=== PATIENT | male | born 1945 | race Caucasian/White ===

== ENCOUNTER 2020-05-26 13:05 | Inpatient (IN) ==
--- OUTSIDE RECORDS SUMMARY | 2020-05-26 13:07 | External Medical Summary | Continuity of Care Document ---
:1945 Author Name Annie Cool, Provider Address Unavailable Unavailable , Care Team Providers Name Role Phone Unavailable Unavailable Unavailable CHAPINCITO HALE Unavailable Unavailable Unavailable Unavailable Unavailable Problems Malignant neoplasm of prostate (185) (C61) Allergies and Adverse Reactions Sulfa Drugs (Allergy) Reaction: Hives Medications No Reported Medications , M.D. Refills: 0 Procedures History of Chemotherapeutics Status: Com pleted History of Colon Surgery Status: Complet ed History of Nose Surgery Status: Complete d History of Tonsillectomy Status: Complet ed Immunizations Immunizations not documented Family History Unknown Family Member Family history of Hypertension (V17.49) Status: Active Comments: Family History Social History - Smoking Status Ex-smoker Plan of Treatment Planned Observations Planned Goals not documented Results No Known Results Results not documented
--- NOTE | 2020-05-26 13:30 | Emergency Department Note ---
History of Present Illness General Chief complaint: Stroke/CVA Symptoms Stated complaint: stroke symptoms Time Seen by Provider: 05/26/20 13:07 Source: patient Mode of arrival: ambulatory Limitations: no limitations History of Present Illness This patient was brought in by EMS after having an episode where he got dizzy and had a aphasia and trouble walking. This happened around noon. He had just taken some heavy trash to the curb and on the way back he said he felt dizzy. His called 911 and when the paramedics arrived they said he was asymptomatic and did not even want to come to the hospital. He has been well lately and had no recent illness. No exposure to COVID. No fever or chills or flulike symptoms. No cough or shortness of breath or chest pain no abdominal pain. At present he is asymptomatic and denies any headache, neck pain, numbness or weakness, difficulty speaking or swallowing, change in vision, any new problems or concerns. Home Medications Home Medications Medication Instructions Recorded Confirmed Type amlodipine 10 mg PO QDL 05/26/20 05/26/20 History carvedilol 3.125 mg PO BID 05/26/20 05/26/20 History fluoxetine 20 mg PO QDL 05/26/20 05/26/20 History gabapentin 600 mg PO BID 05/26/20 05/26/20 History gabapentin 800 mg PO BID 05/26/20 05/26/20 History lisinopril 40 mg PO QDL 05/26/20 05/26/20 History trazodone 150 mg PO HS 05/26/20 05/26/20 History Allergies Allergy/AdvReac Type Severity Reaction Status Date / Time Sulfa (Sulfonamide Allergy Intermediate HIVES Verified 05/26/20 15:10 Antibiotics) Past Med/Surg History Social History Preferred Language: Vincentian Feels Safe at Home: Yes Smoking Status: Current every day smoker Immunizations: Past medical history: He does have a history of Crohn's disease. He denies history of CVA or cardiac disease or diabetes Social history: He is followed by Dr. Kaur. He does smoke. He does not drink. He is . Review of Systems A total of 10 systems reviewed and were otherwise negative Physical Exam Vital Signs Vital Signs - 24 hr 05/26/20 13:05 05/26/20 14:03 Temperature 37.1 C Temperature Source Oral Pulse Rate 90 Pulse Rate [Right Finger] 82 Pulse Rhythm Regular Respiratory Rate 20 22 Respiratory Effort / Characteristics Non-Labored Spontaneous Non-Labored Respiratory Depth Normal Normal Respiratory Pattern Regular Blood Pressure 200/117 H Blood Pressure [Right Arm] 199/108 H Blood Pressure Mean 144 Blood Pressure Mean [Right Arm] 138 Pulse Oximetry 96 94 Oxygen Delivery Method Room Air Room Air Sepsis Recent Fever Within 48 Hours No Sepsis New/Unexplained Change in Mental Status No Sepsis Action Taken by Nursing No Action Required General: Well developed well nourished older male who appears in no acute distress in no acute distress, breathing comfortably on room air. Normal speech, nonslurred. No aphasia. HEENT: Normal cephalic atraumatic. Pupils are equal round and reactive to light. Extraocular movements are intact. Oropharynx is pink with moist mucous membranes. No swelling of the mouth lips or tongue. Neck: Supple with a midline trachea. No meningeal signs or stiffness, no JVD or bruits. No Stridor. Chest: Clear to auscultation bilaterally. No wheezes or rhonchi. No increased work of breathing. Heart: Regular rate and rhythm without murmurs or gallops. Abdomen: Soft nontender, nondistended without rebound guarding or rigidity. Extremities: No cyanosis clubbing or edema. No calf tenderness or assymetry Spine/Back. Non tender to palpation. No CVA tenderness Skin: Good turgor without rashes. Neurologic exam: Cranial nerves two through 12 are intact. Motor and sensation are intact and symmetrical throughout. He does have a tremor in his chin and also when he moves his arms. He thinks this is chronic. Course Administered Medications Discontinued Medications Aspirin (Aspirin Chew) 324 mg PO NOW STA Stop: 05/26/20 14:43 Last Admin: 05/26/20 14:53 Dose: 324 mg Documented by: [id number] Magnesium Sulfate/Dextrose (Magnesium Sulfate / D5w) 1 gm in 100 mls @ 100 mls/hr IV NOW STA Stop: 05/26/20 15:13 Last Admin: 05/26/20 14:34 Dose: 100 mls/hr Documented by: [id number] Potassium Chloride (Klor-Con M20) 40 meq PO NOW STA Stop: 05/26/20 14:14 Last Admin: 05/26/20 14:34 Dose: 40 meq Documented by: [id number] Medical Decision Making Differential Diagnosis CVA, TIA, electrolyte or metabolic abnormality, toxicologic, trauma, cardiac, infectious Medical Records Attestation: I reviewed the patient's medical records. Home Medications Current Medication List: was personally reviewed by me Laboratory Data Attestation: I reviewed the patient's lab results. Result diagrams: 05/26/20 12:37 05/26/20 12:37 Lab Results 05/26/20 05/26/20 05/26/20 Range/Units 12:37 12:37 12:37 WBC 8.35 (4.8-10.8) K/uL RBC 4.53 L (4.7-6.1) M/uL Hgb 14.2 (14.0-18.0) g/dL Hct 40.9 L (42-52) % MCV 90.3 (80-100) fL MCH 31.3 (25-34) pg MCHC 34.7 (32-36) g/dL RDW Std Deviation 46.7 H (36.4-46.3) fL RDW Coeff of Ruiz 14.2 (11.5-14.5) % Plt Count 180 (130-400) K/uL MPV 10.7 H (7.4-10.4) fL Immature Gran % (Auto) 0.1 % Neut % (Auto) 81.8 % Lymph % (Auto) 5.9 % [place] % (Auto) 11.3 % Eos % (Auto) 0.5 % Baso % (Auto) 0.4 % Neut # (Auto) 6.84 H (1.4-6.5) K/uL Lymph # (Auto) 0.49 L (1.2-3.4) K/uL [place] # (Auto) 0.94 H (0.11-0.59) K/uL Eos # (Auto) 0.04 (0-0.5) K/uL Baso # (Auto) 0.03 (0-0.2) K/uL Immature Gran # (Auto) 0.01 (0.00-0.02) K/uL PT 11.5 (9.0-12.0) Seconds INR 1.1 (0.9-1.1) APTT 27.8 (21.0-31.0) Seconds PTT Ratio 1.0 Sodium 138 (136-145) mmol/L Potassium 3.1 L (3.5-5.1) mmol/L Chloride 101 (98-107) mmol/L Carbon Dioxide 28 (21-32) mmol/L Anion Gap 8.0 (3-11) BUN 10 (7-18) mg/dl Creatinine 1.33 (0.6-1.4) mg/dl Est Cr Clr Drug Dosing 46.7 ml/min Est GFR ( Amer) 59.8 Est GFR (Non-Af Amer) 51.6 BUN/Creatinine Ratio 7.7 L (10-20) Glucose 89 (70-99) mg/dl Calcium 10.0 (8.5-10.1) mg/dl Magnesium 1.7 L (1.8-2.4) mg/dl Total Bilirubin 1.2 H (0.2-1) mg/dl AST 14 L (15-37) U/L ALT 14 (12-78) U/L Alkaline Phosphatase 104 (45-117) U/L Troponin I < 0.015 (0-0.045) ng/ml Total Protein 8.5 H (6.4-8.2) gm/dl Albumin 3.8 (3.4-5.0) gm/dl Globulin 4.7 H (2.5-4.0) gm/dl Albumin/Globulin Ratio 0.8 L (0.9-2) Imaging Data Radiologist's Impression: HEAD CT NONCONTRAST CT DOSE: 537.48 mGy.cm HISTORY: Stroke evaluation TECHNIQUE: Multiaxial CT images of the head were performed without the use of intravenous contrast. Automated exposure control was utilized for this study. A dose lowering technique was utilized adhering to the principles of ALARA. Comparison: None. Findings: The paranasal sinuses and mastoid air cells are clear. The calvarium and skull base are intact. There is no mass, hematoma, midline shift, acute infarct. White matter hypodensity is nonspecific but suggestive of microvascular ischemic change. The ventricles and sulci demonstrate mild age-related involutional changes. Old lacunar infarcts seen within the left basal ganglia. Impression: No acute intracranial abnormality. Atrophy and microvascular ischemic changes. ECG Data Attestation: I personally reviewed and interpreted this ECG as follows: Indication: + weakness Rate (beats per minute): 60 Rhythm: + sinus with SA ECG Intervals/blocks: + Normal QRS, + Normal QT and + Normal [place] ECG [place]: + Normal ECG ST segments: + Nonspecific ST abnormalities ECG Findings: no PACs and no PVCs Comparison ECG Date: no prior available MDM Narrative This patient is brought in by EMS. They did call and talk to Dr. Arcos prior to arrival and he gave ALS medical command. The patient is asymptomatic upon arrival and therefore stroke alert was not called. He has no acute neurologic deficits. He is doing significantly better. IV access was established and a full neurologic and cardiac work-up was obtained this included CAT scan head EKG and multiple blood testing. He was reassessed frequently and I also talked to his . He apparently had a syncopal episode where he was dizzy and then has slurred speech. He is better at present. He has some shakiness with movement in his arms is been going on for a while and his lip is new. I am questioning whether he does not have Parkinson's. It is possible today he could have had a seizure as well he did have some incontinence apparently but there is no seizure activity reported. His CAT scan of his head is unremarkable. His EKG does not show any acute ischemic changes or significant arrhythmia. He has no white count or fevers suggest infection. He has no acute electrolyte or metabolic abnormalities. He is not severely anemic. Given the concern for the acute neurologic event with likely TIA, I do think he needs to be admitted/observe for further evaluation and treatment. He was given aspirin p.o. here. He was also noted to have low magnesium at 1.7 and this was repleted with IV magnesium 1 g and he was also repleted his potassium with 40 mEq p.o. I have consulted Dr[facility]. Continuous cardiac monitoring: An order was placed for continuous panel monitor. He was noted to have a normal sinus rhythm with a rate of 82 with some intermittent ectopy/PACs Impression & Plan Transient cerebral ischemia, Dizziness, Tremor, Aphasia Discharge Plan Visit Data Chief Complaint: Stroke/CVA Symptoms Stated Complaint: stroke symptoms ED Provider: Patel Archibald Discharge Problem: Transient cerebral ischemia, Dizziness, Tremor, Aphasia Forms Stand Alone Forms: My [facility] Prescriptions Prescriptions: No Action gabapentin 600 mg tablet 600 mg PO BID RF: 0 carvedilol 3.125 mg tablet 3.125 mg PO BID RF: 0 gabapentin 800 mg tablet 800 mg PO BID RF: 0 amlodipine 10 mg tablet 10 mg PO QDL RF: 0 trazodone 150 mg tablet 150 mg PO HS RF: 0 lisinopril 40 mg tablet 40 mg PO QDL RF: 0 fluoxetine 20 mg capsule 20 mg PO QDL RF: 0 Discharge Problem: Transient cerebral ischemia Qualifiers: Transient cerebral ischemia type: unspecified Qualified Code(s): G45.9 - Transient cerebral ischemic attack, unspecified
[2020-05-26 13:32] LABS: Basophils # (auto) 0.03 K/uL (0-0.2); Basophils % (auto) 0.4 %; Eosinophils # (auto) 0.04 K/uL (0-0.5); Eosinophils % (auto) 0.5 %; Hematocrit (blood only) 40.9 % (42-52); Hemoglobin 14.2 g/dL (14.0-18.0); Immature Granulocytes # (auto) 0.01 K/uL (0.00-0.02); Immature Granulocytes % (auto) 0.1 %; Lymphocytes # (auto) 0.49 K/uL (1.2-3.4); Lymphocytes % (auto) 5.9 %; Mean Corpuscular Hemoglobin 31.3 pg (25-34); Mean Corpuscular Hgb Conc 34.7 g/dL (32-36); Mean Corpuscular Volume 90.3 fL (80-100); Mean Platelet Volume 10.7 fL (7.4-10.4); Monocytes # (auto) 0.94 K/uL (0.11-0.59); Monocytes % (auto) 11.3 %; Neutrophils # (auto) 6.84 K/uL (1.4-6.5); Neutrophils % (auto) 81.8 %; Platelet Count 180 K/uL (130-400); RDW Coefficient of Variation 14.2 % (11.5-14.5); RDW Standard Deviation 46.7 fL (36.4-46.3); Red Blood Count 4.53 M/uL (4.7-6.1); White Blood Count 8.35 K/uL (4.8-10.8)
[2020-05-26 13:40] LABS: Alanine Aminotransferase 14 U/L (12-78); Albumin Level 3.8 gm/dl (3.4-5.0); Aspartate Aminotransferase 14 U/L (15-37); BUN Creatinine Ratio 7.7 (10-20); Blood Urea Nitrogen 10 mg/dl (7-18); Carbon Dioxide 28 mmol/L (21-32); Chloride 101 mmol/L (98-107); Creatinine Clr Calc Pharmacy 46.7 ml/min; Est GFR (African American) 59.8; Est GFR (Non-African American) 51.6; Glucose 89 mg/dl (70-99); Magnesium 1.7 mg/dl (1.8-2.4); Potassium 3.1 mmol/L (3.5-5.1); Sodium 138 mmol/L (136-145)
[2020-05-26 13:43] LABS: INR 1.1 (0.9-1.1); Partial Thromboplastin Time 27.8 Seconds (21.0-31.0); Prothrombin Time 11.5 Seconds (9.0-12.0)
[2020-05-26 13:44] LABS: Albumin Globulin Ratio 0.8 (0.9-2); Alkaline Phosphatase 104 U/L (45-117); Bilirubin,Total 1.2 mg/dl (0.2-1); Globulin 4.7 gm/dl (2.5-4.0); Total Protein 8.5 gm/dl (6.4-8.2); Troponin I < 0.015 ng/ml (0-0.045)
--- NOTE | 2020-05-26 13:53 | CT Scan Report ---
HEAD CT NONCONTRAST CT DOSE: 537.48 mGy.cm HISTORY: Stroke evaluation TECHNIQUE: Multiaxial CT images of the head were performed without the use of intravenous contrast. A utomated exposure control was utilized for this study. A dose lowering technique was utilized adheri ng to the principles of ALARA. Comparison: None. Findings: The paranasal sinuses and mastoid air cells are clear. The calvarium and skull base are int act. There is no mass, hematoma, midline shift, acute infarct. White matter hypodensity is nonspecifi c but suggestive of microvascular ischemic change. The ventricles and sulci demonstrate mild age-rela shama involutional changes. Old lacunar infarcts seen within the left basal ganglia. Impression: No acute intracranial abnormality. Atrophy and microvascular ischemic changes. ACT 112: Negative or not required by law. Electronically signed by: Shekhar Chiang M.D. 05/26/2020 1:52 PM
[2020-05-26] MEDS ORDERED: POTASSIUM CHLORIDE 20 MEQ TABCR PO STA (14:13)
[2020-05-26] MEDS ORDERED: MAGNESIUM SULFATE / D5W 1 GM/100 ML BAG IV STA (14:14)
[2020-05-26] MEDS ORDERED: ASPIRIN 81 MG CHEW PO STA (14:42)
--- NOTE | 2020-05-26 16:28 | History & Physical Report ---
Date of Service May 26, 2020 Assessment & Plan (1) Stroke-like symptoms: This is a 74yo M with a PMH of HTN, tobacco use, Crohn's disease, h/o colon cancer s/p partial colectomy with chemo induced peripheral neuropathy and other medical problems listed below who presents with strokelike symptoms starting earlier today. -Still experiencing mild dysarthria, tremor of jaw and ambulatory dysfunction -CT head with atrophy and microvascular ischemic changes but no acute intracranial abnormality -Ordered MRI brain w/wo, MRA head and neck, echo w/ bubble study -Neuro checks, PT, OT, speech therapy evaluations -Routine neurology consult -Given 324mg aspirin in ED. Continue dual antiplatelet therapy with aspirin and plavix (2) HTN (hypertension): Allow for permissive HTN for cerebral perfusion in setting of possible stroke and treat only if SBP >220 and DBP >110 -Most recent BP 198/118. Since DBP >110, will give home dose amlodipine 10mg now and monitor. Holding lisinopril (3) Peripheral neuropathy: Effect of chemotherapy for colon cancer. Fall precautions (4) Depression: Continue SSRI (5) Tobacco use disorder: Smokes 15 cigarettes / day and has smoked intermittently for 30 years -Cessation counseling DVT Ppx: SQ heparin Code status: FULL PCP: Sweta Dispo: Admit to med tele. Discharge planning ordered as part of stroke set protocol Patient seen in collaboration with Dr. Hannah. Please see addendum. History of Present Illness Primary Care Provider: Carson Sol MD This is a 74yo M with a PMH of HTN, tobacco use, Crohn's disease, h/o colon cancer s/p partial colectomy with chemo induced peripheral neuropathy and other medical problems listed below who presents with strokelike symptoms starting earlier today. Patient was walking back to the house after taking out trash cans when he felt lightheaded and started difficulty walking. Walked backwards and fell down landing on his backside. Denies loss of consciousness or head trauma. His son arrived to the driveway around this time was able to help patient off the ground. Noted patient to have some slurred speech. called EMS for further evaluation. Currently, patient notes that mouth seems to be trembling, which is new. Still with slurred speech as well. Does have bilateral hand tremor at baseline. Denies any weakness in extremities. Denies difficulty swallowing. Ambulation is slowed and more rigid than baseline, per , and patient seems less able to balance. Was out mowing lawn yesterday, so this is a significant change. Denies any personal history of stroke. Has smoked on and off for many years and is currently smoking 15 cigarettes daily. Denies any known cold exposure or sympt oms. No fever, chills, headache, confusion, visual changes, chest pain, shortness of breath, nausea, vomiting, abdominal pain, dysuria, diarrhea or constipation. Allergies Allergy/AdvReac Type Severity Reaction Status Date / Time Sulfa (Sulfonamide Allergy Intermediate HIVES Verified 05/26/20 15:10 Antibiotics) Home Medications Home Medications Medication Instructions Recorded Confirmed Type adalimumab 0 mg SUBCUT .COMPLEX 05/26/20 05/26/20 History amlodipine 10 mg PO QDL 05/26/20 05/26/20 History carvedilol 3.125 mg PO BID 05/26/20 05/26/20 History cholecalciferol (vitamin D3) 800 unit PO DAILY 05/26/20 05/26/20 History cyanocobalamin (vitamin B-12) 5,000 mcg PO DAILY 05/26/20 05/26/20 History fluoxetine 20 mg PO QDL 05/26/20 05/26/20 History gabapentin 600 mg PO BID 05/26/20 05/26/20 History gabapentin 800 mg PO BID 05/26/20 05/26/20 History hydrochlorothiazide 25 mg PO DAILY PRN 05/26/20 05/26/20 History lisinopril 40 mg PO QDL 05/26/20 05/26/20 History terazosin 10 mg PO DAILY 05/26/20 05/26/20 History trazodone 150 mg PO HS 05/26/20 05/26/20 History Past Med/Surg History Medical History (Updated 05/26/20 @ 16:37 by Pati Duarte PA-C) Crohn's disease Depression History of colon cancer History of prostate cancer (Chronic) HTN (hypertension) Peripheral neuropathy Tobacco use disorder Urge incontinence Surgical History S/P partial colectomy S/P TURP Family History Other Cancer Hypertension Social History Preferred Language: Croatian Communication Ability: Effective Senior Sales 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 Physical Exam Physical Exam: General Appearance: WD/WN, vitals as above, appears chronically ill, frail, pleasant, +dysarthric Head: normocephalic, atraumatic Eyes: normal inspection, PERRL, conjunctivae normal, anicteric sclerae ENT: external ear and nose normal, oropharynx normal Neck: trachea midline, no thyromegaly, normal visual inspection Respiratory: normal respiratory effort, lungs clear to auscultation, no wheeze, rales, rhonchi. Normal insp/exp effort, no accessory muscle use Cardiovascular: regular rate, rhythm, + systolic murmur, normal peripheral pulses. Vessels: no JVD or carotid bruit Chest: normal inspection of chest Abdomen/GI: normal bowel sounds, soft, nontender, no hepatosplenomegaly Extremities/Musculoskeletal: no cyanosis or clubbing, extremities motor strength 5/5 Neurologic: PERRL, EOMI, accommodation nl, + tremor of jaw, bilateral hands, +mild dysarthria, CN's II-XI intact bilaterally and moves all extremities, rigid and slow gait Psychiatric: A+Ox3, euthymic affect Skin: no rashes, normal color, warm/dry Results & Data Results & Data ([facility]) Vital Signs (Past 12 Hours) Vital Signs Temp Pulse Pulse Resp BP BP Pulse Ox 05/26/20 14:03 82 22 199/108 H 94 05/26/20 13:05 37.1 C 90 20 200/117 H 96 Laboratory Results Short CBC 05/26/20 Range/Units 12:37 WBC 8.35 (4.8-10.8) K/uL Hgb 14.2 (14.0-18.0) g/dL Hct 40.9 L (42-52) % Plt Count 180 (130-400) K/uL BMP 05/26/20 12:37 Sodium 138 Potassium 3.1 L Chloride 101 Carbon Dioxide 28 BUN 10 Creatinine 1.33 Glucose 89 Calcium 10.0 Cardiac Enzymes 05/26/20 Range/Units 12:37 Troponin I < 0.015 (0-0.045) ng/ml Liver Function 05/26/20 Range/Units 12:37 Total Bilirubin 1.2 H (0.2-1) mg/dl AST 14 L (15-37) U/L ALT 14 (12-78) U/L Alkaline Phosphatase 104 (45-117) U/L Albumin 3.8 (3.4-5.0) gm/dl Diagnostic Findings CT head: Impression: No acute intracranial abnormality. Atrophy and microvascular ischemic changes. Code Status & VTE Plan VTE Prophylaxis Plan VTE Prophylaxis will be ordered: Yes Supervising Physician Co-Signing Physician Notes Attending addendum: Patient seen and examined, care coordinated with Pati Duarte PA-C This is a 74-year-old male with complex past medical history of Crohn's disease history of colon cancer status post partial colectomy brought to ER, with complaint of slurred speech, increased tremor, shuffling gait, symptoms started since this morning CT chest noncontrast shows no acute change Ordered for MRI of brain, MRA head neck, echo with bubble study for complete stroke work-up Started on dual antiplatelet therapy with aspirin and Plavix Continue statin PT OT evaluation Neurology consult requested Is referred to further documentation by Pati Duarte PA-C for discussion of other chronic issues Carla Hannah MD
[2020-05-26] MEDS ORDERED: AMLODIPINE BESYLATE 5 MG TAB ONE (16:57)
[2020-05-26] MEDS ORDERED: AMLODIPINE BESYLATE 5 MG TAB PO ONE (16:59)
[2020-05-26] MEDS ORDERED: POLYETHYLENE (MIRALAX) 17 GM PACK PO PRN (18:18)
[2020-05-26] MEDS ORDERED: ACETAMINOPHEN 325 MG TAB PO PRN (18:18)
[2020-05-26] MEDS ORDERED: NITROGLYCERIN SL 0.4 MG/TAB TAB SL PRN (18:18)
[2020-05-26] MEDS ORDERED: PHARMACIST DISCHARGE MED REC CONSULT PRN (18:18)
[2020-05-26] MEDS ORDERED: ONDANSETRON INJ 2 MG/ML 2 ML VIAL IV PRN (18:18)
[2020-05-26] MEDS: ATORVASTATIN 40 MG TAB PO SCH (20:04)
[2020-05-26] MEDS: TRAZODONE HCL 50 MG TAB PO SCH (20:05)
[2020-05-26] MEDS: carvediloL 3.125 MG TAB PO SCH (20:05)
[2020-05-26] MEDS: GABAPENTIN 600 MG TAB PO SCH (20:06)
[2020-05-26] MEDS: GABAPENTIN 800 MG TAB PO SCH (20:06)
--- NOTE | 2020-05-26 22:14 | Electrocardiogram Report ---
Test Reason : Blood Pressure : / mmHG Vent. Rate : 077 BPM Atrial Rate : 077 BPM P-R Int : 166 ms QRS Dur : 092 ms QT Int : 386 ms P-R-T Axes : 039 042 030 degrees QTc Int : 436 ms Sinus rhythm with marked sinus arrhythmia Premature atrial complexes Possible Left atrial enlargement Left ventricular hypertrophy with repolarization abnormality Abnormal ECG No previous ECGs available Confirmed by Pete Cooper ([id number]) on 05/26/2020 10:14:02 PM Referred By: ER Confirmed By:Pete Cooper
[2020-05-26] MEDS ORDERED: GADOBUTROL 65ML VIAL IV PRN (22:25)
[2020-05-26] MEDS: HEPARIN SOD 5,000 UNIT/0.5 ML VIAL SQ SCH (22:33)
[2020-05-27 06:05] LABS: Hematocrit (blood only) 41.3 % (42-52); Hemoglobin 14.5 g/dL (14.0-18.0); Mean Corpuscular Hemoglobin 31.1 pg (25-34); Mean Corpuscular Hgb Conc 35.1 g/dL (32-36); Mean Corpuscular Volume 88.6 fL (80-100); Mean Platelet Volume 9.7 fL (7.4-10.4); Platelet Count 134 K/uL (130-400); Red Blood Count 4.66 M/uL (4.7-6.1); White Blood Count 6.45 K/uL (4.8-10.8)
[2020-05-27 06:14] LABS: Estimated Average Glucose 100 mg/dl; Hemoglobin A1C 5.1 % (4.5-5.6)
[2020-05-27 06:34] LABS: BUN Creatinine Ratio 10.3 (10-20); Creatinine Clr Calc Pharmacy 45.7 ml/min; Est GFR (African American) 60.9; Est GFR (Non-African American) 52.5; Potassium 3.2 mmol/L (3.5-5.1)
--- NOTE | 2020-05-27 07:09 | Magnetic Resonance Report ---
MR ANGIOGRAPHY OF THE [place] OF [place] NO CONTRAST CLINICAL HISTORY: Transient ischemic attack. Possible stroke COMPARISON STUDY: None. A 3-D [id number] MR angiographic sequence of the [place] was performed. Both the source and projection images were reviewed. There is no evidence of major intracranial branch occlusion. There is no evidence of intracranial arnoldo nosis. There are no lesions suspicious for aneurysm. There is a dominant left vertebral artery. There is a hypoplastic right A1 segment. IMPRESSION: No evidence of aneurysm. No evidence of major intracranial branch occlusion. ACT 112: Negative or not required by law. Electronically signed by: Dudley Herman M.D. 05/27/2020 7:07 AM
--- NOTE | 2020-05-27 07:13 | Magnetic Resonance Report ---
MRI OF THE BRAIN COMBO CLINICAL HISTORY: Transient ischemic attack. COMPARISON STUDY: CT of the brain dated 05/26/2020. TECHNIQUE: MRI of the brain was performed utilizing various T1 and T2-weighted sequences in the axial , sagittal, and coronal planes. Contrast-enhanced sequences were acquired following the administratio n of 7 cc of Gadavist. The examination is modestly degraded by motion artifact. FINDINGS: Brain parenchyma: There is age-related involutional change noting moderate to advanced confluent subc ortical and periventricular microangiopathic disease. There is no hemorrhage or mass effect. There is no restricted diffusion to suggest acute ischemia. No enhancing mass lesion is identified on the pos tcontrast images. A small chronic lacunar infarct is noted in the left thalamus. Barr-white matter di fferentiation is preserved. No extra-axial fluid collection is seen. The cerebellar tonsils are robert l in configuration. Ventricles, sulci, and cisterns: Prominent secondary to involutional change. Pituitary and sella: Unremarkable. Intracranial vasculature: Normal flow voids are maintained at the skull base. Orbits: The bony orbits are grossly intact. Orbital contents are normal in appearance noting bilatera l ocular lens implants. Sinuses and mastoids: There is a trace right mastoid effusion. The left mastoid air cells and the par anasal sinuses are clear. Calvarium: Unremarkable. Cervical cord: Partially visualized cervical spinal cord is normal in morphology and signal intensity . IMPRESSION: No acute intracranial abnormality. ACT 112: Negative or not required by law. Electronically signed by: True Lopez M.D. 05/27/2020 7:11 AM
--- NOTE | 2020-05-27 07:17 | Magnetic Resonance Report ---
MR ANGIOGRAM OF THE NECK COMBO CLINICAL HISTORY: Transient ischemic attack. COMPARISON STUDY: No priors.. TECHNIQUE: Axial 3-D [id number] MR angiography of the neck is performed. Subsequently, following the IV administration of 7 cc of Gadavist. Coronal MR angiogram of the neck was performed to corrobor ate the findings. 3-D reformats are created and assessed. All measurements were calculated based on N ASCET criteria. FINDINGS: Visualized portions of the thoracic aorta are normal in caliber. The aortic arch demonstrat es standard 3-vessel anatomy. The subclavian arteries are widely patent bilaterally. The right common carotid artery is patent, as are the right internal and external carotid arteries. The left common c arotid artery is patent, as are the left internal and external carotid arteries. Atherosclerotic irre gularity is noted in the carotid bulbs with no evidence of high-grade stenosis. The vertebral arterie s are widely patent. The left vertebral artery is dominant. The intracranial right vertebral artery i s diminutive and not well evaluated. This may terminate as the PICA. The visualized intracranial vess els at the skull base appear patent. IMPRESSION: Unremarkable MR angiogram of the neck. ACT 112: Negative or not required by law. Electronically signed by: True Lopez M.D. 05/27/2020 7:16 AM
[2020-05-27] MEDS: HEPARIN SOD 5,000 UNIT/0.5 ML VIAL SQ SCH ×3 (07:42→21:11)
[2020-05-27] MEDS: GABAPENTIN 600 MG TAB PO SCH ×2 (08:40→21:13)
[2020-05-27] MEDS: carvediloL 3.125 MG TAB PO SCH ×2 (08:41→21:23)
[2020-05-27] MEDS: GABAPENTIN 800 MG TAB PO SCH ×2 (08:41→21:13)
[2020-05-27] MEDS: CYANOCOBALAMIN (VITAMIN B-12) 2,500 MCG TAB.SUBL SL SCH (08:41)
[2020-05-27] MEDS: CHOLECALCIFEROL 1,000 UNITS 25 MCG TAB PO SCH (08:41)
[2020-05-27] MEDS: ASPIRIN 81 MG ECTAB PO SCH (08:41)
[2020-05-27] MEDS: ATORVASTATIN 40 MG TAB PO SCH (08:41)
--- NOTE | 2020-05-27 09:55 | Hospitalist Progress Note ---
Date of Service May 27, 2020 Assessment & Plan (1) Stroke-like symptoms: From Admit team-This is a 74yo M with a PMH of HTN, tobacco use, Crohn's disease, h/o colon cancer s/p partial colectomy with chemo induced peripheral neuropathy and other medical problems listed below who presents with strokelike symptoms starting earlier today. -Feeling a lot better -CT head with atrophy and microvascular ischemic changes but no acute intracranial abnormality -MRI brain w/wo-, MRA head and neck-, echo w/bubble study- -Neuro checks, PT, OT, speech therapy evaluations -Neurology consult -Given 324mg aspirin in ED. Continue dual antiplatelet therapy with aspirin and plavix, Statin (2) HTN (hypertension): Allow for permissive HTN for cerebral perfusion in setting of possible stroke and treat only if SBP >220 and DBP >110 -Most recent BP 198/118. Since DBP >110, will give home dose amlodipine 10mg now and monitor. Add lisinopril back (3) Peripheral neuropathy: Effect of chemotherapy for colon cancer. Fall precautions (4) Depression: Continue SSRI (5) Tobacco use disorder: Smokes 15 cigarettes / day and has smoked intermittently for 30 years -Cessation counseling DVT Ppx: SQ heparin Code status: FULL PCP: Sweta Dispo: Admit to [facility]. Discharge planning ordered as part of stroke set protocol ROS-No Headache, No Visual Changes, No Nausea, No Vomiting, No Fever, No Chills, No Neck Pain or Stiffness, No Chest Pain, No Palpitations, No SOB, No GASPAR, No Cough, No Sputum, No Wheezing, No Abdominal Pain, No Diarrhea, No Hematemesis, No Hemoptysis, No Unexpected Weight Loss, No Flank pain, No Melena, No Hematochezia, No Frequency, No Urgency, No Burning, No Hematuria, No Rashes, No Diaphoresis. Appetite is Normal Physical Exam Gen-AAO x 3, NAD, Afebrile, tremor. Weak Head-NCAT, EOMI, PERRLA, Anicteric Sclera, No Posterior Pharyngeal Erythema Neck-Supple, No JVD, No Thyromegaly, No Masses, No LAD, No Bruits Lungs-Clear to Auscultation Bilaterally, No Rales, No Rhonchi, No Wheezing, No Crepitus Chest-No S4, +S1, +S2, No S3, No Murmurs, No Rubs, No Gallops, No Ectopy Abdomen-Soft, Bowel Sounds Present, Non Tender, Non Distended, No Hepatomegaly, No Splenomegaly, No Palpable Masses, No Rebound, No Rigidity, No Guarding Musculoskeletal-Full Range of Motion Bilaterally, No CVAT Extremities-No Cyanosis, No Clubbing, No Edema Nuero-Cranial Nerves II-XII grossly intact, Motor WNL, DTRs WNL, Strength WNL, Non Focal Psych-Normal Mood. Admission and Anticipated Discharge Date Admission Date: May 26, 2020 Results & Data Results & Data ([facility]) Vital Signs (Past 12 Hours) Vital Signs Temp Pulse Pulse Resp BP BP Pulse Ox 05/27/20 08:00 37.4 C 92 H 18 206/122 H 200/107 H 90 05/27/20 04:08 36.7 C 91 H 20 184/94 H 90 05/27/20 00:00 72
[2020-05-27] MEDS ORDERED: hydroCHLOROthiazide 25 MG TAB PO PRN (09:57)
[2020-05-27] MEDS: lisinopriL 40 MG TAB PO SCH (11:41)
[2020-05-27] MEDS: TERAZOSIN HCL 5 MG CAP PO SCH (11:41)
[2020-05-27] MEDS: FLUOXETINE HCL 20 MG CAP PO SCH (11:42)
[2020-05-27 20:43] LABS: Folate (Folic Acid) 22.44 ng/ml (>5.38)
--- NOTE | 2020-05-27 21:09 | Consultation Report ---
DATE OF CONSULTATION: 05/27/2020 REASON FOR CONSULTATION: Dysarthria, fall, confusion. HISTORY OF PRESENT ILLNESS: The patient is a 74-year-old right-handed male with a history of hypertension. DICTATION ENDS HERE
[2020-05-27] MEDS: TRAZODONE HCL 50 MG TAB PO SCH (21:12)
[2020-05-27] MEDS ORDERED: EUCERIN CR 120 GM JAR EXT PRN (21:19)
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
[2020-05-28] MEDS: HEPARIN SOD 5,000 UNIT/0.5 ML VIAL SQ SCH ×3 (05:13→19:54)
[2020-05-28 06:41] LABS: Hematocrit (blood only) 39.2 % (42-52); Hemoglobin 13.7 g/dL (14.0-18.0); Mean Corpuscular Hemoglobin 31.2 pg (25-34); Mean Corpuscular Hgb Conc 34.9 g/dL (32-36); Mean Corpuscular Volume 89.3 fL (80-100); Platelet Count 104 K/uL (130-400); RDW Coefficient of Variation 14.2 % (11.5-14.5); RDW Standard Deviation 46.3 fL (36.4-46.3); Red Blood Count 4.39 M/uL (4.7-6.1); White Blood Count 4.24 K/uL (4.8-10.8)
--- NOTE | 2020-05-28 07:08 | Hospitalist Progress Note ---
Date of Service May 28, 2020 Assessment & Plan (1) Stroke-like symptoms: From Admit team-This is a 74yo M with a PMH of HTN, tobacco use, Crohn's disease, h/o colon cancer s/p partial colectomy with chemo induced peripheral neuropathy and other medical problems listed below who presents with strokelike symptoms starting earlier today. -Feeling a lot better -CT head with atrophy and microvascular ischemic changes but no acute intracranial abnormality -MRI brain w/wo-, MRA head and neck-, echo w/bubble study- -Neuro checks, PT, OT, speech therapy evaluations -Neurology consult reviewed -Given 324mg aspirin in ED. Continue dual antiplatelet therapy with aspirin and plavix, Statin, Continue KEVIN for 21 days, then ASA alone, taper Trazadone, Taper Neurontin (2) HTN (hypertension): amlodipine and lisinopril (3) Peripheral neuropathy: Effect of chemotherapy for colon cancer. Fall precautions (4) Depression: Continue SSRI (5) Tobacco use disorder: Smokes 15 cigarettes / day and has smoked intermittently for 30 years -Cessation counseling DVT Ppx: SQ heparin Code status: FULL PCP: Sweta Dispo: tele. Discharge planning, Patients MRI and MRAs neg for CVA ROS-No Headache, No Visual Changes, No Nausea, No Vomiting, No Fever, No Chills, No Neck Pain or Stiffness, No Chest Pain, No Palpitations, No SOB, No GASPAR, No Cough, No Sputum, No Wheezing, No Abdominal Pain, No Diarrhea, No Hematemesis, No Hemoptysis, No Unexpected Weight Loss, No Flank pain, No Melena, No Hematochezia, No Frequency, No Urgency, No Burning, No Hematuria, No Rashes, No Diaphoresis. Appetite is Normal Physical Exam Gen-AAO x 3, NAD, Afebrile, tremor. Weak Head-NCAT, EOMI, PERRLA, Anicteric Sclera, No Posterior Pharyngeal Erythema Neck-Supple, No JVD, No Thyromegaly, No Masses, No LAD, No Bruits Lungs-Clear to Auscultation Bilaterally, No Rales, No Rhonchi, No Wheezing, No Crepitus Chest-No S4, +S1, +S2, No S3, No Murmurs, No Rubs, No Gallops, No Ectopy Abdomen-Soft, Bowel Sounds Present, Non Tender, Non Distended, No Hepatomegaly, No Splenomegaly, No Palpable Masses, No Rebound, No Rigidity, No Guarding Musculoskeletal-Full Range of Motion Bilaterally, No CVAT Extremities-No Cyanosis, No Clubbing, No Edema Nuero-Cranial Nerves II-XII grossly intact, Motor WNL, DTRs WNL, Strength WNL, Non Focal Psych-Normal Mood. Admission and Anticipated Discharge Date Admission Date: May 27, 2020 Results & Data Results & Data ([facility]) Vital Signs (Past 12 Hours) Vital Signs Temp Pulse Pulse Resp BP BP Pulse Ox 05/28/20 03:22 36.7 C 66 15 122/75 92 05/28/20 00:45 90 05/27/20 22:33 37.3 C 88 21 105/72 91 05/27/20 21:19 107 H 112/75 05/27/20 19:26 37.5 C 100 H 17 97/62 L 94
[2020-05-28 07:26] LABS: BUN Creatinine Ratio 11.9 (10-20); Calcium 9.8 mg/dl (8.5-10.1); Creatinine Clr Calc Pharmacy 20.3 ml/min; Est GFR (African American) 23.2; Potassium 3.3 mmol/L (3.5-5.1)
[2020-05-28] MEDS: GABAPENTIN 600 MG TAB PO SCH ×3 (08:04→19:54)
[2020-05-28] MEDS: ASPIRIN 81 MG ECTAB PO SCH (08:05)
[2020-05-28] MEDS: carvediloL 3.125 MG TAB PO SCH ×2 (08:05→19:50)
[2020-05-28] MEDS: TERAZOSIN HCL 5 MG CAP PO SCH (08:05)
[2020-05-28] MEDS: CHOLECALCIFEROL 1,000 UNITS 25 MCG TAB PO SCH (08:05)
[2020-05-28] MEDS: CYANOCOBALAMIN (VITAMIN B-12) 2,500 MCG TAB.SUBL SL SCH (08:05)
[2020-05-28] MEDS: ATORVASTATIN 40 MG TAB PO SCH (09:27)
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
[2020-05-28] MEDS: FLUOXETINE HCL 20 MG CAP PO SCH (12:19)
[2020-05-28] MEDS: lisinopriL 40 MG TAB PO SCH (12:19)
[2020-05-28 15:56] LABS: Appearance Urine Cloudy (Clear); Bacteria Urine Automated Negative (Negative); Blood Urine 2+ (Negative); Color Urine Dark Yellow; Epithelial Cell Urine Auto >30 /lpf (0-5); Glucose Urine UA Negative (Negative); Ketones Urine Trace (Negative); Leukocyte Esterase Urine 1+ (Negative); Nitrite Urine Negative (Negative); Protein Urine 3+ (Negative); Specific Gravity Urine 1.022 (1.000-1.030); Urobilinogen Urine Negative (Negative)
[2020-05-28 15:58] LABS: Bilirubin Urine 1+ (Negative); Ictotest Urine Positive (Negative)
[2020-05-28] MEDS ORDERED: TRAZODONE HCL 100 MG TAB PO SCH (21:00)
[2020-05-29] MEDS: HEPARIN SOD 5,000 UNIT/0.5 ML VIAL SQ SCH ×3 (05:32→20:18)
[2020-05-29 06:14] LABS: Hematocrit (blood only) 35.2 % (42-52); Hemoglobin 12.2 g/dL (14.0-18.0); Mean Corpuscular Hemoglobin 30.7 pg (25-34); Mean Corpuscular Hgb Conc 34.7 g/dL (32-36); Mean Corpuscular Volume 88.7 fL (80-100); Mean Platelet Volume 10.7 fL (7.4-10.4); Platelet Count 100 K/uL (130-400); RDW Coefficient of Variation 14.2 % (11.5-14.5); RDW Standard Deviation 45.9 fL (36.4-46.3); Red Blood Count 3.97 M/uL (4.7-6.1); White Blood Count 4.74 K/uL (4.8-10.8)
[2020-05-29 06:53] LABS: BUN Creatinine Ratio 15.4 (10-20); Creatinine Clr Calc Pharmacy 18.3 ml/min; Est GFR (African American) 19.6; Est GFR (Non-African American) 16.9; Potassium 2.9 mmol/L (3.5-5.1)
--- NOTE | 2020-05-29 07:38 | Discharge Summary ---
Date of Service May 29, 2020 Admission HPI Per Admitting Provider This is a 74yo M with a PMH of HTN, tobacco use, Crohn's disease, h/o colon cancer s/p partial colectomy with chemo induced peripheral neuropathy and other medical problems listed below who presents with strokelike symptoms starting earlier today. Patient was walking back to the house after taking out trash cans when he felt lightheaded and started difficulty walking. Walked backwards and fell down landing on his backside. Denies loss of consciousness or head trauma. His son arrived to the driveway around this time was able to help patient off the ground. Noted patient to have some slurred speech. called EMS for further evaluation. Currently, patient notes that mouth seems to be trembling, which is new. Still with slurred speech as well. Does have bilateral hand tremor at baseline. Denies any weakness in extremities. Denies difficulty swallowing. Ambulation is slowed and more rigid than baseline, per , and patient seems less able to balance. Was out mowing lawn yesterday, so this is a significant change. Denies any personal history of stroke. Has smoked on and off for many years and is currently smoking 15 cigarettes daily. Denies any known cold exposure or symptoms. No fever, chills, headache, confusion, visual changes, chest pain, shortness of breath, nausea, vomiting, abdominal pain, dysuria, diarrhea or constipation. Admission Exam Per Admitting Provider General Appearance: WD/WN, vitals as above, appears chronically ill, frail, pleasant, +dysarthric Head: normocephalic, atraumatic Eyes: normal inspection, PERRL, conjunctivae normal, anicteric sclerae ENT: external ear and nose normal, oropharynx normal Neck: trachea midline, no thyromegaly, normal visual inspection Respiratory: normal respiratory effort, lungs clear to auscultation, no wheeze, rales, rhonchi. Normal insp/exp effort, no accessory muscle use Cardiovascular: regular rate, rhythm, + systolic murmur, normal peripheral pulses. Vessels: no JVD or carotid bruit Chest: normal inspection of chest Abdomen/GI: normal bowel sounds, soft, nontender, no hepatosplenomegaly Extremities/Musculoskeletal: no cyanosis or clubbing, extremities motor strength 5/5 Neurologic: PERRL, EOMI, accommodation nl, + tremor of jaw, bilateral hands, +mild dysarthria, CN's II-XI intact bilaterally and moves all extremities, rigid and slow gait Psychiatric: A+Ox3, euthymic affect Skin: no rashes, normal color, warm/dry Principal Diagnosis (1) Stroke-like symptoms: (2) HTN (hypertension): (3) Peripheral neuropathy: (4) Depression: (5) Tobacco use disorder: Discharge Exam See Below Discharge Data Allergies Allergy/AdvReac Type Severity Reaction Status Date / Time Sulfa (Sulfonamide Allergy Intermediate HIVES Verified 05/26/20 15:10 Antibiotics) Consultations 05/26/20 18:18 Consult Case Management - Discharge Planning Routine Consult Case Management - Discharge Planning Routine Consult Neurology Routine Ordered Studies 05/26/20 13:25 CT head/brain wo con Stat 05/26/20 18:18 MR angio head wo con Urgent MR angio neck wo/w con Urgent MR brain wo/w con Urgent Current Diagnoses Nicotine dependence, unspecified, uncomplicated (05/27/20) Major depressive disorder, single episode, unspecified (05/27/20) Polyneuropathy, unspecified (05/27/20) Essential (primary) hypertension (05/27/20) Unspecified symptoms and signs involving the nervous system (05/27/20) Allergies Sulfa (Sulfonamide Antibiotics) Allergy (Intermediate, Verified 05/26/20 15:10) HIVES Height/Weight/Isolation Height 5 ft 9 in Weight 69 kg Chemistry 05/28/20 05/29/20 06:03 05:54 Sodium 138 135 L Potassium 3.3 L 2.9 L Chloride 102 99 Carbon Dioxide 29 29 Anion Gap 7.0 7.0 BUN 35 H D 52 H Creatinine 2.91 H D 3.35 H D Glucose 77 81 Urinalysis 05/28/20 14:30 Urine Color Dark Yellow Urine Appearance Cloudy A Urine pH 5.0 Ur Specific [place] 1.022 Urine Protein 3+ H Urine Glucose (UA) Negative Urine Ketones Trace H Urine Blood 2+ H Urine Nitrite Negative Urine Bilirubin 1+ H Microbiology 05/28/20 14:30 Urine,Clean Catch Urine Culture - Pending Hospital Course (1) Stroke-like symptoms: From Admit team-This is a 74yo M with a PMH of HTN, tobacco use, Crohn's disease, h/o colon cancer s/p partial colectomy with chemo induced peripheral neuropathy and other medical problems listed below who presents with strokelike symptoms starting earlier today. -Feeling a lot better -CT head with atrophy and microvascular ischemic changes but no acute intracranial abnormality -MRI brain w/wo-, MRA head and neck-, echo w/bubble study- -Neuro checks, PT, OT, speech therapy evaluations -Neurology consult reviewed -Given 324mg aspirin in ED. Continue dual antiplatelet therapy with aspirin and plavix, Statin, Continue KEVIN for 21 days, then ASA alone, taper Trazadone, Taper Neurontin until he c/o Neuropathic pain, OP echo and ZIO (2) HTN (hypertension): amlodipine and lisinopril (3) Peripheral neuropathy: Effect of chemotherapy for colon cancer. Fall precautions (4) Depression: Continue SSRI (5) Tobacco use disorder: Smokes 15 cigarettes / day and has smoked intermittently for 30 years -Cessation counseling DVT Ppx: SQ heparin Code status: FULL PCP: Sweta Dispo: tele. Discharge planning, Patients MRI and MRAs neg for CVA ROS-No Headache, No Visual Changes, No Nausea, No Vomiting, No Fever, No Chills, No Neck Pain or Stiffness, No Chest Pain, No Palpitations, No SOB, No GASPAR, No Cough, No Sputum, No Wheezing, No Abdominal Pain, No Diarrhea, No Hematemesis, No Hemoptysis, No Unexpected Weight Loss, No Flank pain, No Melena, No Hematochezia, No Frequency, No Urgency, No Burning, No Hematuria, No Rashes, No Diaphoresis. Appetite is Normal Physical Exam Gen-AAO x 3, NAD, Afebrile, tremor. Weak Head-NCAT, EOMI, PERRLA, Anicteric Sclera, No Posterior Pharyngeal Erythema Neck-Supple, No JVD, No Thyromegaly, No Masses, No LAD, No Bruits Lungs-Clear to Auscultation Bilaterally, No Rales, No Rhonchi, No Wheezing, No Crepitus Chest-No S4, +S1, +S2, No S3, No Murmurs, No Rubs, No Gallops, No Ectopy Abdomen-Soft, Bowel Sounds Present, Non Tender, Non Distended, No Hepatomegaly, No Splenomegaly, No Palpable Masses, No Rebound, No Rigidity, No Guarding Musculoskeletal-Full Range of Motion Bilaterally, No CVAT Extremities-No Cyanosis, No Clubbing, No Edema Nuero-Cranial Nerves II-XII grossly intact, Motor WNL, DTRs WNL, Strength WNL, Non Focal Psych-Normal Mood. Total Time Total Time Spent Total Time Spent (In Minutes): 45 mins Total Time Includes: Examination of the Patient, Discharge Planning, Medication Reconciliation and Communication With Other Providers Discharge Plan Discharge Items Patient Disposition: Home - Self-Care Reason For Visit: STROKE LIKE SYMPTOMS,TIA Discharge Diagnosis: (1) Stroke-like symptoms: (2) HTN (hypertension): (3) Peripheral neuropathy: (4) Depression: (5) Tobacco use disorder: Activity: Resume your previous activity Lifting: None Bathing: No limitations Exercise/Sports: None Driving/Machine Use: None Weightbearing: Full weightbearing Non-emergency contact: Primary Care Provider, Blood Tester Fowl and Neurologist Call non-emergency contact if: you have any medication questions Follow-up/Referrals: Carson Sol MD [Primary Care Provider] - 06/02/20 10:40 am (06/02/2020 10:40 AM Provider Yanna Beck PA-C Department [facility] Needs to taper his Neurontin he starts to complain of neuropathic pain Taper Trazadone if able Needs ZIO monitor and 2D echo outpatient ) Diet: Regular Addtl Attending Provider Instructions: Follow up with PCP, Needs ZIO monitor and outpatient echo, Needs to taper his Trazadone and Neurontin Pending Studies at Discharge: No Stand-Alone Forms: My [facility] [employer], Smoking Cessation Medications and DC Order Prescriptions: New atorvastatin 40 mg Tablet 40 mg PO QAM Qty: 30 RF: 0 aspirin 81 mg Tablet,Delayed Release (Dr/Ec) 81 mg PO QAM Qty: 100 RF: 0 trazodone 100 mg Tablet 50 mg PO HS Qty: 30 RF: 0 lisinopril [Zestril] 40 mg Tablet 20 mg PO QDL Qty: 30 RF: 0 Continued gabapentin 600 mg tablet 600 mg PO BID RF: 0 carvedilol 3.125 mg tablet 3.125 mg PO BID RF: 0 amlodipine 10 mg tablet 10 mg PO QDL RF: 0 fluoxetine 20 mg capsule 20 mg PO QDL RF: 0 terazosin 10 mg capsule 10 mg PO DAILY RF: 0 cholecalciferol (vitamin D3) 10 mcg (400 unit) Capsule 800 unit PO DAILY RF: 0 adalimumab 40 mg/0.4 mL Pen Injector Kit 0 mg SUBCUT .COMPLEX RF: 0 cyanocobalamin (vitamin B-12) 5,000 mcg Capsule 5,000 mcg PO DAILY RF: 0 Discontinued gabapentin 800 mg tablet 800 mg PO BID RF: 0 trazodone 150 mg tablet 150 mg PO HS RF: 0 lisinopril 40 mg tablet 40 mg PO QDL RF: 0 hydrochlorothiazide 25 mg tablet 25 mg PO DAILY PRN (Reason: Edema) RF: 0 Discharge Orders: Discharge Order (Routine); Ordered 05/29/20 Ordered By: Zen Forte Admission Data Admit Date/Time: 05/27/20 12:42 Attending Provider: Zen Forte Admit Provider: Carla Hannah Primary Care Provider: Carson oSl Other Providers: Jennifer Cadet ; Prabhu Messina ; Jennifer Nunes ; Segun Escalona
[2020-05-29] MEDS ORDERED: STROKE PATIENT DISCHARGE STA (07:50)
[2020-05-29] MEDS: carvediloL 3.125 MG TAB PO SCH ×2 (08:34→20:19)
[2020-05-29] MEDS: ATORVASTATIN 40 MG TAB PO SCH (08:36)
[2020-05-29] MEDS: ASPIRIN 81 MG ECTAB PO SCH (08:36)
[2020-05-29] MEDS: CHOLECALCIFEROL 1,000 UNITS 25 MCG TAB PO SCH (08:36)
[2020-05-29] MEDS: GABAPENTIN 600 MG TAB PO SCH ×3 (08:36→20:19)
[2020-05-29] MEDS: TERAZOSIN HCL 5 MG CAP PO SCH (08:36)
[2020-05-29] MEDS: CYANOCOBALAMIN (VITAMIN B-12) 2,500 MCG TAB.SUBL SL SCH (09:15)
--- NOTE | 2020-05-29 11:14 | Pharmacy Report ---
Pharmacist Stroke Counseling - Date of Service May 29, 2020 - Scope: Pharmacy has been consulted to provide medication discharge counseling for this patient admitted with transient ischemic attack as per the Pharmacist Discharge Counseling for Stroke Patients Protocol. - Medications on Discharge: Home Medications Medication Instructions Recorded Confirmed adalimumab 0 mg SUBCUT .COMPLEX 05/26/20 05/26/20 amlodipine 10 mg PO QDL 05/26/20 05/26/20 carvedilol 3.125 mg PO BID 05/26/20 05/26/20 cholecalciferol (vitamin D3) 800 unit PO DAILY 05/26/20 05/26/20 cyanocobalamin (vitamin B-12) 5,000 mcg PO DAILY 05/26/20 05/26/20 fluoxetine 20 mg PO QDL 05/26/20 05/26/20 gabapentin 600 mg PO BID 05/26/20 05/26/20 terazosin 10 mg PO DAILY 05/26/20 05/26/20 New Rx's Medication Instructions Recorded aspirin 81 mg PO QAM #100 tab 05/29/20 atorvastatin 40 mg PO QAM #30 tab 05/29/20 clopidogrel [Plavix] 75 mg PO DAILY #20 tab 05/29/20 lisinopril [Zestril] 20 mg PO QDL #30 tab 05/29/20 trazodone 50 mg PO HS #30 tab 05/29/20 - Action: The above medications, specifically ones for stroke treatment/prophylaxis, have been reviewed in detail with the patient and/or patient customer service representative(s) prior to discharge. This includes indication, common adverse reactions, drug interactions, and medication administration. Medication counseling has been employed using the teach-back method to ensure understanding. - Outcome: The patient and/or patient customer service representative(s) have demonstrated understanding of the medications. Additional comments: [] Thank you for allowing pharmacy to be involved in the care of this patient. Please call [phone] with any additional questions
[2020-05-29] MEDS: FLUOXETINE HCL 20 MG CAP PO SCH (11:37)
[2020-05-29] MEDS: NSS + 20MEQ KCL 20 MEQ/1,000 ML BAG IV SCH ×2 (11:37→20:19)
--- NOTE | 2020-05-29 11:57 | Ultrasound Report ---
RENAL ULTRASOUND HISTORY: Acute kidney injury. COMPARISON: None. FINDINGS: Right kidney: 9.2 cm. Multiple cysts with the largest in the upper pole measuring 6 cm. No hydronephr osis. Mild cortical thinning. Slight increased cortical echogenicity and cortical lobulation. Left kidney: 10.3 cm. Multiple small cysts. Dominant cyst measures 2.2 cm. No hydronephrosis. Mild co rtical thinning. Slight increased cortical echogenicity and cortical lobulation. Bladder: Bladder wall thickening is likely due to underdistention. The ureteral jets are not identifi ed. IMPRESSION: 1. No hydronephrosis. 2. Bilateral renal cysts. 3. Slight increased cortical echogenicity suggestive of medical renal disease. ACT 112: Negative or not required by law. Electronically signed by: Shekhar Chiang M.D. 05/29/2020 11:55 AM
[2020-05-29] MEDS ORDERED: cefTRIAXone SODIUM 1,000 MG in DEXTROSE 5% 50 ML IV SCH (14:00)
[2020-05-29] MEDS: POTASSIUM CHLORIDE 20 MEQ TABCR PO SCH ×2 (14:20→20:17)
--- NOTE | 2020-05-29 14:50 | Progress Notes ---
DATE: 05/29/2020 SUBJECTIVE: I am seeing Mr. Fenton in followup of an episode of dysarthria and some encephalopathy with delirium. His urine culture has now come back positive. The patient is feeling well. OBJECTIVE: He is alert and oriented. There is less in the way of jaw tremor. No significant resting tremor, no cogwheel rigidity. There is normal facial symmetry. There is a mild tremor on intention. His gait is fairly unremarkable. It is fairly narrow based. It is mildly stooped but not overtly shuffling. IMPRESSION: 1. This patient presented with a possible transient ischemic attack. We will use dual antiplatelet therapy, risk factor modification. The patient should wear a hall monitor such as a Zio as an outpatient. 2. This patient appeared mildly delirious on admission and perhaps that is from the urinary tract infection. I suspect there is an underlying dementia. I am going to see the patient in followup post-discharge and further assess cognition and gait. He may have some mild parkinsonism, but I do not think that needs treatment at this point. We will sign off.
--- NOTE | 2020-05-29 16:26 | Consultation Report ---
DATE OF CONSULTATION: 05/29/2020 REASON FOR CONSULT: Acute renal failure. HISTORY OF PRESENT ILLNESS: The patient is a 74-year-old male who was admitted 3 days ago because of stroke-like symptoms. At the time of admission, he had a near normal creatinine of 1.31, but then yesterday morning it went up to 2.91 and today it is even higher at 3.35. The patient is currently hypotensive and has been having low blood pressure for the last 1-2 days now. Urine sediment is very active, consistent with ATN. He has now been started on IV fluids. Hard to obtain history from the patient as he still has some dysarthria as well as some confusion. REVIEW OF SYSTEMS: Hard to obtain secondary to mental status. HOME MEDICATIONS: List was reviewed in detail and is as per the reconciliation list and includes multiple blood pressure medications including amlodipine, carvedilol, lisinopril, hydrochlorothiazide, as well as Terazosin. ALLERGIES: List reviewed and includes SULFA ANTIBIOTICS. PAST MEDICAL AND SURGICAL HISTORY: History of Crohn's disease, depression, history of colon cancer, history of prostate cancer, hypertension, peripheral neuropathy, tobacco use disorder, urge incontinence, status post partial colectomy, status post TURP. FAMILY HISTORY: Negative for renal disease or dialysis. SOCIAL HISTORY: and lives with his spouse, still smoking about half pack per day. No alcohol. PHYSICAL EXAMINATION: GENERAL: Elderly white male who does appear chronically ill and frail. HEENT: Mucous membrane is moist. NECK: Supple. No jugular venous distention. VITAL SIGNS: Blood pressure is 88/54, pulse rate 59, temperature 36.6, 93% on room air. Mucous membrane is moist. NECK: Supple. No jugular venous distention. CHEST: Bilateral clear to auscultation. Decreased inspiratory effort. CARDIOVASCULAR: Regular rate and rhythm. Soft systolic murmur heard. ABDOMEN: Soft, nontender. EXTREMITIES: Shows no edema. NEUROLOGIC: He is awake and alert, somewhat hard to test for orientation. LABORATORY TESTS: Reviewed in detail. Creatinine was 1.31 2 days ago, then went up to 2.91 yesterday and today is 3.35, BUN is up to 52, potassium is low at 2.9. Sodium 135. Hemoglobin 12.2, platelet count 100. WBC count 4.74. Renal ultrasound unremarkable. Urine sediment is active with lots of RBCs, WBCs, hyaline cast as well as epithelial cells, which is more consistent with ATN plus minus UTI. Urine culture positive for gram-negative bacilli. ASSESSMENT AND PLAN: A 74-year-old male who was admitted 3 days ago with stroke-like symptoms but had near normal creatinine at the time of admission, but now has acute renal failure with a rising creatinine. Acute renal failure: This is related with hypotension which he definitely has now. Urine sediment is also consistent with acute tubular necrosis like picture, although it is hard to interpret in the setting of acute urinary tract infection. In any case, the clinical situation fits more with acute tubular necrosis like picture. He does not appear to be fluid overloaded and has had fairly poor oral intake for the last few days. Given this, I would like to give IV fluid, which has already been started. Potassium is low and will be corrected. All the blood pressure lowering agent except a low dose of carvedilol should be stopped, so I did stop terazosin as well as hydrochlorothiazide. Lisinopril was already stopped. Trazodone should be on hold. Given that creatinine is still rising fairly fast, he may still be requiring renal replacement therapy but most likely no. It will be more evident in the coming 24-48 hours. Renal ultrasound already done and does not have hydronephrosis. Continue daily labs. Continue input output charting.
[2020-05-30] MEDS: HEPARIN SOD 5,000 UNIT/0.5 ML VIAL SQ SCH ×3 (05:12→21:35)
[2020-05-30] MEDS: NSS + 20MEQ KCL 20 MEQ/1,000 ML BAG IV SCH ×2 (06:17→15:31)
[2020-05-30 06:21] LABS: Hematocrit (blood only) 31.1 % (42-52); Hemoglobin 10.8 g/dL (14.0-18.0); Mean Corpuscular Hemoglobin 30.9 pg (25-34); Mean Corpuscular Hgb Conc 34.7 g/dL (32-36); Mean Corpuscular Volume 89.1 fL (80-100); Platelet Count 107 K/uL (130-400); RDW Coefficient of Variation 14.4 % (11.5-14.5); RDW Standard Deviation 46.6 fL (36.4-46.3); Red Blood Count 3.49 M/uL (4.7-6.1); White Blood Count 5.59 K/uL (4.8-10.8)
[2020-05-30 07:00] LABS: Albumin Level 2.4 gm/dl (3.4-5.0); BUN Creatinine Ratio 17.8 (10-20); Calcium 8.7 mg/dl (8.5-10.1); Creatinine Clr Calc Pharmacy 20.8 ml/min; Est GFR (African American) 22.4; Est GFR (Non-African American) 19.3; Potassium 3.9 mmol/L (3.5-5.1)
--- NOTE | 2020-05-30 07:41 | Hospitalist Progress Note ---
Date of Service May 30, 2020 Assessment & Plan (1) Stroke-like symptoms: From Admit team-This is a 74yo M with a PMH of HTN, tobacco use, Crohn's disease, h/o colon cancer s/p partial colectomy with chemo induced peripheral neuropathy and other medical problems listed below who presents with strokelike symptoms starting earlier today. -Feeling a lot better -CT head with atrophy and microvascular ischemic changes but no acute intracranial abnormality -MRI brain w/wo-, MRA head and neck-, echo w/bubble study- -Neuro checks, PT, OT, speech therapy evaluations -Neurology consult reviewed -Given 324mg aspirin in ED. Continue dual antiplatelet therapy with aspirin and plavix, Statin, Continue KEVIN for 21 days, then ASA alone, taper Trazadone, Taper Neurontin until he c/o Neuropathic pain, OP echo and ZIO (2) HTN (hypertension): amlodipine and lisinopril (3) Peripheral neuropathy: Effect of chemotherapy for colon cancer. Fall precautions (4) Depression: Continue SSRI (5) Tobacco use disorder: Smokes 15 cigarettes / day and has smoked intermittently for 30 years -Cessation counseling Went into Renal Failure and now has a UTI that grew out Pseudomonas and Group G Strep, d/w Dr Javed, Treat the Pseudomonas, don't worry about the Strep, Cefe pime added, Rocephin DCd. DVT Ppx: SQ heparin Code status: FULL PCP: Sweta Dispo: tele. Discharge planning, DC in 2-3 days, Patients MRI and MRAs neg for CVA ROS-No Headache, No Visual Changes, No Nausea, No Vomiting, No Fever, No Chills, No Neck Pain or Stiffness, No Chest Pain, No Palpitations, No SOB, No GASPAR, No Cough, No Sputum, No Wheezing, No Abdominal Pain, No Diarrhea, No Hematemesis, No Hemoptysis, No Unexpected Weight Loss, No Flank pain, No Melena, No Hematochezia, No Frequency, No Urgency, No Burning, No Hematuria, No Rashes, No Diaphoresis. Appetite is Normal Physical Exam Gen-AAO x 3, NAD, Afebrile, No tremor. Less Weak Head-NCAT, EOMI, PERRLA, Anicteric Sclera, No Posterior Pharyngeal Erythema Neck-Supple, No JVD, No Thyromegaly, No Masses, No LAD, No Bruits Lungs-Clear to Auscultation Bilaterally, No Rales, No Rhonchi, No Wheezing, No Crepitus Chest-No S4, +S1, +S2, No S3, No Murmurs, No Rubs, No Gallops, No Ectopy Abdomen-Soft, Bowel Sounds Present, Non Tender, Non Distended, No Hepatomegaly, No Splenomegaly, No Palpable Masses, No Rebound, No Rigidity, No Guarding Musculoskeletal-Full Range of Motion Bilaterally, No CVAT Extremities-No Cyanosis, No Clubbing, No Edema Nuero-Cranial Nerves II-XII grossly intact, Motor WNL, DTRs WNL, Strength WNL, Non Focal Psych-Normal Mood. Admission and Anticipated Discharge Date Admission Date: May 27, 2020 Results & Data Results & Data ([facility]) Vital Signs (Past 12 Hours) Vital Signs Temp Pulse Pulse Resp BP Pulse Ox 05/30/20 07:25 55 L 05/30/20 04:27 60 05/30/20 03:56 36.8 C 59 L 17 146/77 H 92 05/29/20 22:39 36.8 C 61 17 110/70 93
[2020-05-30] MEDS: CYANOCOBALAMIN (VITAMIN B-12) 2,500 MCG TAB.SUBL SL SCH (07:52)
[2020-05-30] MEDS: CHOLECALCIFEROL 1,000 UNITS 25 MCG TAB PO SCH (07:52)
[2020-05-30] MEDS: ASPIRIN 81 MG ECTAB PO SCH (07:52)
[2020-05-30] MEDS: ATORVASTATIN 40 MG TAB PO SCH (07:52)
[2020-05-30] MEDS: POTASSIUM CHLORIDE 20 MEQ TABCR PO SCH (07:53)
[2020-05-30] MEDS: GABAPENTIN 600 MG TAB PO SCH ×3 (07:53→21:36)
[2020-05-30] MEDS: carvediloL 3.125 MG TAB PO SCH ×2 (07:57→21:36)
[2020-05-30] MEDS ORDERED: CEFEPIME 1,000 MG in SYRINGE 0 ML IV ONE (08:30)
--- NOTE | 2020-05-30 10:31 | Nephrology Progress Note ---
Date of Service May 30, 2020 Assessment & Plan (1) Acute kidney injury superimposed on CKD: Patient with acute kidney injury on CKD due to hypotension on admission. Creatinine is slightly better today at 2.9 from 3.3 yesterday. Electrolytes are stable and no signs of volume overload. We will continue to monitor renal function with daily BMP. Avoid nephrotoxins such as NSAIDs. Would give patient at least 1 more day as he is still on IV fluids. (2) HTN (hypertension): Blood pressure stable now. Holding off on oral antihypertensives. (3) Hypokalemia: Potassium is better at 3.9. We will stop her oral potassium chloride as patient is getting IV potassium as well. Monitor K with daily BMP. Admission and Anticipated Discharge Date Admission Date: May 27, 2020 Subjective Patient feels better today. Creatinine is better today at 2.9. He is making more urine. Blood pressure is stable. Review of Systems Review of Systems: All systems reviewed & are unremarkable except as noted in HPI & below Physical Exam Physical Exam: General exam: Appears comfortable, no acute distress HEENT: Pupils are equal and reactive to light Neck: No JVD, neck is supple trachea is midline Respiratory system: Clear breath sounds bilaterally. Gastrointestinal: Abdomen is soft, non distended, non tender, bowel sounds are present CVS: Regular rate and rhythm. No murmurs, rubs or gallops Musculoskeletal: No joint or muscle tenderness Extremities: Non tender, no edema, peripheral pulses are present Neuro: Oriented, no tremors, no focal neurological deficits Skin: No rashes Results & Data ([facility]) Vital Signs (Past 12 Hours) Vital Signs Temp Pulse Pulse Resp BP Pulse Ox 05/30/20 07:55 36.4 C L 74 20 125/77 93 05/30/20 07:25 55 L 05/30/20 04:27 60 05/30/20 03:56 36.8 C 59 L 17 146/77 H 92 05/29/20 22:39 36.8 C 61 17 110/70 93 Laboratory Results 05/30/20 05:55 05/30/20 05/30/20 05:55 05:55 WBC 5.59 RBC 3.49 L MCV 89.1 MCH 30.9 MCHC 34.7 RDW Std Deviation 46.6 H RDW Coeff of Ruiz 14.4 Plt Count 107 L MPV 11.0 H Phosphorus 3.0 Albumin 2.4 L
[2020-05-30] MEDS: FLUOXETINE HCL 20 MG CAP PO SCH (12:21)
[2020-05-31] MEDS ORDERED: cloNIDine HCL 0.1 MG TAB PO ONE (00:11)
[2020-05-31] MEDS: NSS + 20MEQ KCL 20 MEQ/1,000 ML BAG IV SCH (01:56)
[2020-05-31] MEDS: HEPARIN SOD 5,000 UNIT/0.5 ML VIAL SQ SCH (06:07)
[2020-05-31 06:25] LABS: Basophils # (auto) 0.01 K/uL (0-0.2); Basophils % (auto) 0.2 %; Eosinophils # (auto) 0.08 K/uL (0-0.5); Eosinophils % (auto) 1.9 %; Hematocrit (blood only) 32.7 % (42-52); Hemoglobin 11.2 g/dL (14.0-18.0); Immature Granulocytes # (auto) 0.01 K/uL (0.00-0.02); Immature Granulocytes % (auto) 0.2 %; Lymphocytes # (auto) 1.48 K/uL (1.2-3.4); Lymphocytes % (auto) 35.2 %; Mean Corpuscular Hemoglobin 30.8 pg (25-34); Mean Corpuscular Hgb Conc 34.3 g/dL (32-36); Mean Corpuscular Volume 89.8 fL (80-100); Mean Platelet Volume 10.6 fL (7.4-10.4); Monocytes # (auto) 0.58 K/uL (0.11-0.59); Monocytes % (auto) 13.8 %; Neutrophils # (auto) 2.04 K/uL (1.4-6.5); Neutrophils % (auto) 48.7 %; Platelet Count 107 K/uL (130-400); RDW Coefficient of Variation 14.2 % (11.5-14.5); RDW Standard Deviation 47.1 fL (36.4-46.3); Red Blood Count 3.64 M/uL (4.7-6.1)
[2020-05-31 07:21] LABS: BUN Creatinine Ratio 19.1 (10-20); Calcium 8.9 mg/dl (8.5-10.1); Est GFR (African American) 50.9; Est GFR (Non-African American) 43.9; Potassium 4.4 mmol/L (3.5-5.1)
--- NOTE | 2020-05-31 07:29 | Discharge Summary ---
Date of Service May 31, 2020 Admission HPI Per Admitting Provider This is a 74yo M with a PMH of HTN, tobacco use, Crohn's disease, h/o colon cancer s/p partial colectomy with chemo induced peripheral neuropathy and other medical problems listed below who presents with strokelike symptoms starting earlier today. Patient was walking back to the house after taking out trash cans when he felt lightheaded and started difficulty walking. Walked backwards and fell down landing on his backside. Denies loss of consciousness or head trauma. His son arrived to the driveway around this time was able to help patient off the ground. Noted patient to have some slurred speech. called EMS for further evaluation. Currently, patient notes that mouth seems to be trembling, which is new. Still with slurred speech as well. Does have bilateral hand tremor at baseline. Denies any weakness in extremities. Denies difficulty swallowing. Ambulation is slowed and more rigid than baseline, per , and patient seems less able to balance. Was out mowing lawn yesterday, so this is a significant change. Denies any personal history of stroke. Has smoked on and off for many years and is currently smoking 15 cigarettes daily. Denies any known cold exposure or symptoms. No fever, chills, headache, confusion, visual changes, chest pain, shortness of breath, nausea, vomiting, abdominal pain, dysuria, diarrhea or constipation. Admission Exam Per Admitting Provider General Appearance: WD/WN, vitals as above, appears chronically ill, frail, pleasant, +dysarthric Head: normocephalic, atraumatic Eyes: normal inspection, PERRL, conjunctivae normal, anicteric sclerae ENT: external ear and nose normal, oropharynx normal Neck: trachea midline, no thyromegaly, normal visual inspection Respiratory: normal respiratory effort, lungs clear to auscultation, no wheeze, rales, rhonchi. Normal insp/exp effort, no accessory muscle use Cardiovascular: regular rate, rhythm, + systolic murmur, normal peripheral pulses. Vessels: no JVD or carotid bruit Chest: normal inspection of chest Abdomen/GI: normal bowel sounds, soft, nontender, no hepatosplenomegaly Extremities/Musculoskeletal: no cyanosis or clubbing, extremities motor strength 5/5 Neurologic: PERRL, EOMI, accommodation nl, + tremor of jaw, bilateral hands, +mild dysarthria, CN's II-XI intact bilaterally and moves all extremities, rigid and slow gait Psychiatric: A+Ox3, euthymic affect Skin: no rashes, normal color, warm/dry Principal Diagnosis (1) Stroke-like symptoms:Sec to UTI (2) HTN (hypertension): (3) Peripheral neuropathy: (4) Depression: (5) Tobacco use disorder: Discharge Exam See below Discharge Data Allergies Allergy/AdvReac Type Severity Reaction Status Date / Time Sulfa (Sulfonamide Allergy Intermediate HIVES Verified 05/26/20 15:10 Antibiotics) Consultations 05/26/20 18:18 Consult Case Management - Discharge Planning Routine Consult Case Management - Discharge Planning Routine Consult Neurology Routine 05/29/20 10:02 Consult Nephrology Routine Ordered Studies 05/26/20 13:25 CT head/brain wo con Stat 05/26/20 18:18 MR angio head wo con Urgent MR angio neck wo/w con Urgent MR brain wo/w con Urgent 05/29/20 10:02 US renal/blad retro comp Urgent 05/31/20 05/31/20 Range/Units 06:07 06:07 WBC 4.20 L (4.8-10.8) K/uL RBC 3.64 L (4.7-6.1) M/uL Hgb 11.2 L (14.0-18.0) g/dL Hct 32.7 L (42-52) % MCV 89.8 (80-100) fL MCH 30.8 (25-34) pg MCHC 34.3 (32-36) g/dL RDW Std Deviation 47.1 H (36.4-46.3) fL RDW Coeff of Ruiz 14.2 (11.5-14.5) % Plt Count 107 L (130-400) K/uL MPV 10.6 H (7.4-10.4) fL Immature Gran % (Auto) 0.2 % Neut % (Auto) 48.7 % Lymph % (Auto) 35.2 % [place] % (Auto) 13.8 % Eos % (Auto) 1.9 % Baso % (Auto) 0.2 % Neut # (Auto) 2.04 (1.4-6.5) K/uL Lymph # (Auto) 1.48 (1.2-3.4) K/uL [place] # (Auto) 0.58 (0.11-0.59) K/uL Eos # (Auto) 0.08 (0-0.5) K/uL Baso # (Auto) 0.01 (0-0.2) K/uL Immature Gran # (Auto) 0.01 (0.00-0.02) K/uL Sodium Pending Potassium 4.4 (3.5-5.1) mmol/L Chloride 115 H (98-107) mmol/L Carbon Dioxide 26 (21-32) mmol/L Anion Gap 2.0 L (3-11) BUN 29 H (7-18) mg/dl Creatinine 1.51 H D (0.6-1.4) mg/dl Est Cr Clr Drug Dosing 41.0 ml/min Est GFR ( Amer) 50.9 Est GFR (Non-Af Amer) 43.9 BUN/Creatinine Ratio 19.1 (10-20) Glucose 76 (70-99) mg/dl Calcium 8.9 (8.5-10.1) mg/dl Hospital Course (1) Stroke-like symptoms: From Admit team-This is a 74yo M with a PMH of HTN, tobacco use, Crohn's disease, h/o colon cancer s/p partial colectomy with chemo induced peripheral neuropathy and other medical problems listed below who presents with strokelike symptoms starting earlier today. -Feeling a lot better -CT head with atrophy and microvascular ischemic changes but no acute intracranial abnormality -MRI brain w/wo-, MRA head and neck-, echo w/bubble study- -Neuro checks, PT, OT, speech therapy evaluations -Neurology consult reviewed -Given 324mg aspirin in ED. Continue dual antiplatelet therapy with aspirin and plavix, Statin, Continue KEVIN for 21 days, then ASA alone, taper Trazadone, Taper Neurontin until he c/o Neuropathic pain, OP echo and ZIO (2) HTN (hypertension): amlodipine and lisinopril (3) Peripheral neuropathy: Effect of chemotherapy for colon cancer. Fall precautions (4) Depression: Continue SSRI (5) Tobacco use disorder: Smokes 15 cigarettes / day and has smoked intermittently for 30 years -Cessation counseling Went into Renal Failure and now has a UTI that grew out Pseudomonas and Group G Strep, d/w Dr Javed, Treat the Pseudomonas, don't worry about the Strep, Cefepime added, Rocephin DCd. DC home on 7 days of Cipro, f/u c Nephrology and PCP in the office DVT Ppx: SQ heparin Code status: FULL PCP: Sweta Dispo: Home today Patient's MRI and MRAs neg for CVA Feels great today and wnats to go home ROS-No Headache, No Visual Changes, No Nausea, No Vomiting, No Fever, No Chills, No Neck Pain or Stiffness, No Chest Pain, No Palpitations, No SOB, No GASPAR, No Cough, No Sputum, No Wheezing, No Abdominal Pain, No Diarrhea, No Hematemesis, No Hemoptysis, No Unexpected Weight Loss, No Flank pain, No Melena, No Hematochezia, No Frequency, No Urgency, No Burning, No Hematuria, No Rashes, No Diaphoresis. Appetite is Normal Physical Exam Gen-AAO x 3, NAD, Afebrile, No tremor. Less Weak Head-NCAT, EOMI, PERRLA, Anicteric Sclera, No Posterior Pharyngeal Erythema Neck-Supple, No JVD, No Thyromegaly, No Masses, No LAD, No Bruits Lungs-Clear to Auscultation Bilaterally, No Rales, No Rhonchi, No Wheezing, No Crepitus Chest-No S4, +S1, +S2, No S3, No Murmurs, No Rubs, No Gallops, No Ectopy Abdomen-Soft, Bowel Sounds Present, Non Tender, Non Distended, No Hepatomegaly, No Splenomegaly, No Palpable Masses, No Rebound, No Rigidity, No Guarding Musculoskeletal-Full Range of Motion Bilaterally, No CVAT Extremities-No Cyanosis, No Clubbing, No Edema Nuero-Cranial Nerves II-XII grossly intact, Motor WNL, DTRs WNL, Strength WNL, Non Focal Psych-Normal Mood. Total Time Total Time Spent Total Time Spent (In Minutes): 45 mins Total Time Includes: Examination of the Patient, Discharge Planning, Medication Reconciliation and Communication With Other Providers Discharge Plan Discharge Items Patient Disposition: Home - Self-Care Reason For Visit: STROKE LIKE SYMPTOMS,TIA Discharge Diagnosis: (1) Stroke-like symptoms:Sec to UTI (2) HTN (hypertension): (3) Peripheral neuropathy: (4) Depression: (5) Tobacco use disorder: Activity: Resume your previous activity Lifting: None Bathing: No limitations Exercise/Sports: None Driving/Machine Use: None Weightbearing: Full weightbearing Non-emergency contact: Primary Care Provider, Drama Teacher and Neurologist Call non-emergency contact if: you have any medication questions Follow-up/Referrals: Carson Sol MD [Primary Care Provider] - 06/02/20 10:40 am (06/02/2020 10:40 AM Provider Yanna Beck PA-C Department [facility] ) González Sims MD [Physician] - (1-2 weeks) Diet: Regular Addtl Attending Provider Instructions: Follow up with PCP, Needs ZIO monitor and outpatient echo, Needs to taper his Trazadone and Neurontin, Take Plavix for 21 days then stop Pending Studies at Discharge: No Stand-Alone Forms: Medications to Prevent Stroke, My MD [employer], Smoking Cessation Medications and DC Order Prescriptions: New atorvastatin 40 mg Tablet 40 mg PO QAM Qty: 30 RF: 0 aspirin 81 mg Tablet,Delayed Release (Dr/Ec) 81 mg PO QAM Qty: 100 RF: 0 trazodone 100 mg Tablet 50 mg PO HS Qty: 30 RF: 0 lisinopril [Zestril] 40 mg Tablet 20 mg PO QDL Qty: 30 RF: 0 clopidogrel [Plavix] 75 mg tablet 75 mg PO DAILY Qty: 20 RF: 0 ciprofloxacin HCl 500 mg tablet 500 mg PO BID Qty: 14 RF: 0 hydrochlorothiazide 25 mg tablet 25 mg PO DAILY Qty: 30 RF: 0 Continued gabapentin 600 mg tablet 600 mg PO BID RF: 0 carvedilol 3.125 mg tablet 3.125 mg PO BID RF: 0 amlodipine 10 mg tablet 10 mg PO QDL RF: 0 fluoxetine 20 mg capsule 20 mg PO QDL RF: 0 terazosin 10 mg capsule 10 mg PO DAILY RF: 0 cholecalciferol (vitamin D3) 10 mcg (400 unit) Capsule 800 unit PO DAILY RF: 0 adalimumab 40 mg/0.4 mL Pen Injector Kit 0 mg SUBCUT .COMPLEX RF: 0 cyanocobalamin (vitamin B-12) 5,000 mcg Capsule 5,000 mcg PO DAILY RF: 0 Discontinued gabapentin 800 mg tablet 800 mg PO BID RF: 0 trazodone 150 mg tablet 150 mg PO HS RF: 0 lisinopril 40 mg tablet 40 mg PO QDL RF: 0 hydrochlorothiazide 25 mg tablet 25 mg PO DAILY PRN (Reason: Edema) RF: 0 Discharge Orders: Discharge Order (Routine); Ordered 05/31/20 Ordered By: Zen Forte Admission Data Admit Date/Time: 05/27/20 12:42 Attending Provider: Zen Forte Admit Provider: Carla Hannah Primary Care Provider: Carson Sol Other Providers: Jennifer Cadet ; Prabhu Messina ; Jennifer Nunes ; Segun Escalona ; Myron Bailey ; [facility]
[2020-05-31] MEDS: ATORVASTATIN 40 MG TAB PO SCH (07:34)
[2020-05-31] MEDS: ASPIRIN 81 MG ECTAB PO SCH (07:35)
[2020-05-31] MEDS: CYANOCOBALAMIN (VITAMIN B-12) 2,500 MCG TAB.SUBL SL SCH (07:35)
[2020-05-31] MEDS: GABAPENTIN 600 MG TAB PO SCH (07:35)
[2020-05-31] MEDS: CHOLECALCIFEROL 1,000 UNITS 25 MCG TAB PO SCH (07:36)
[2020-05-31] MEDS: carvediloL 3.125 MG TAB PO SCH (07:36)
[2020-05-31] MEDS ORDERED: STROKE PATIENT DISCHARGE STA (07:40)
[2020-05-31] MEDS ORDERED: CEFEPIME 500 MG in SYRINGE 0 ML IV SCH (08:00)
--- NOTE | 2020-05-31 10:40 | Nephrology Progress Note ---
Date of Service May 31, 2020 Assessment & Plan (1) Acute kidney injury superimposed on CKD: Patient with acute kidney injury on CKD due to hypotension on admission. Creatinine is slightly better today at 1.5 from 2.9 yesterday. Electrolytes are stable and no signs of volume overload. We will continue to monitor renal function with daily BMP. Avoid nephrotoxins such as NSAIDs. Stop IV fluids. From renal standpoint patient can be discharged. Patient will need a BMP on Saturday or Saturday. He can follow-up with PCP. If creatinine has not improved although back to normal, patient can be sent to follow-up with nephrology as well. (2) HTN (hypertension): Blood pressure stable now. Holding off on oral antihypertensives. (3) Hypokalemia: Potassium is better at 4.4. He will need a BMP on Saturday on Saturday. No need for potassium supplements Admission and Anticipated Discharge Date Admission Date: May 27, 2020 Subjective Patient feels better today. No shortness of breath or leg swelling. He is still on IV fluids. Creatinine is better at 1.5 Review of Systems Review of Systems: All systems reviewed & are unremarkable except as noted in HPI & below Physical Exam Physical Exam: General exam: Appears comfortable, no acute distress HEENT: Pupils are equal and reactive to light Neck: No JVD, neck is supple trachea is midline Respiratory system: Clear breath sounds bilaterally. Gastrointestinal: Abdomen is soft, non distended, non tender, bowel sounds are present CVS: Regular rate and rhythm. No murmurs, rubs or gallops Musculoskeletal: No joint or muscle tenderness Extremities: Non tender, no edema, peripheral pulses are present Neuro: Oriented, no tremors, no focal neurological deficits Skin: No rashes Results & Data ([facility]) Vital Signs (Past 12 Hours) Vital Signs Temp Pulse Pulse Resp BP BP Pulse Ox 05/31/20 09:17 36.5 C 58 L 18 179/89 H 96 05/31/20 08:00 56 L 60 05/31/20 07:54 36.5 C 58 L 18 179/89 H 96 05/31/20 04:34 36.6 C 54 L 18 177/91 H 97 05/31/20 01:40 60 05/30/20 23:18 36.5 C 62 20 196/93 H 94 Laboratory Results 05/31/20 06:07 05/31/20 06:07 WBC 4.20 L RBC 3.64 L MCV 89.8 MCH 30.8 MCHC 34.3 RDW Std Deviation 47.1 H RDW Coeff of Ruiz 14.2 Plt Count 107 L MPV 10.6 H
--- NOTE | 2020-06-08 07:15 | Coding Query ---
CODING QUERY To promote full compliance with coding requirements relating to patient care, provider participation is requested in all cases of orthopedic coder uncertainty. Please assist us with the question(s) below: Coding Question(s): There is documentation of possible TIA with and this is not documented on Discharge Summary or clearly ruled-out. Please clarify below, in your clinical opinion, regarding Possible TIA. ( ) Possible TIA (xx ) TIA is Ruled-Out ( ) Other: Please Specify Physician's Response(s): Thank you Jenniefr Dominog Principal Diagnosis: "that condition established after study, to be chiefly responsible for occasioning the admission of the patient to the hospital for care." Co-Existing Principal Diagnosis: "when two or more diagnoses equally meet the criteria for principal diagnosis as determined by the circumstances of admission, diagnostic work up, and/or therapy provided, and the Alphabetic Index, Tabular List, or another coding guideline does not provide sequencing direction, any one of the diagnoses may be sequenced first." "When the physician has documented what appears to be a current diagnosis in the body of the record, but has not included the diagnosis in the final diagnostic statement, the physician should be asked whether the diagnosis should be added." ([facility] 2 QTR90. p3-4) REINALDO
--- NOTE | 2020-06-08 07:19 | Coding Query ---
CODING QUERY To promote full compliance with coding requirements relating to patient care, provider participation is requested in all cases of ethnic origins teacher uncertainty. Please assist us with the question(s) below: Coding Question(s): The Neurology Progress Note on 05/29/20 documents "some Encephalopathy with delirium". Please specify below, in your clinical opinion, regarding the Encephalopathy. ( xx ) likely Metabolic Encephalopathy due to UTI ( ) likely Other Encephalopathy. Please Specify ( ) likely Encephalopathy, Unspecified ( ) No Encephalopathy - it is Ruled-Out Physician's Response(s): Thank you Jennifer Domingo Principal Diagnosis: "that condition established after study, to be chiefly responsible for occasioning the admission of the patient to the hospital for care." Co-Existing Principal Diagnosis: "when two or more diagnoses equally meet the criteria for principal diagnosis as determined by the circumstances of admission, diagnostic work up, and/or therapy provided, and the Alphabetic Index, Tabular List, or another coding guideline does not provide sequencing direction, any one of the diagnoses may be sequenced first." "When the physician has documented what appears to be a current diagnosis in the body of the record, but has not included the diagnosis in the final diagnostic statement, the physician should be asked whether the diagnosis should be added." ([facility] 2 QTR90. p3-4) REINALDO
== END 2020-05-31 10:29 | disposition home health service (06) | DRG 689 ==
LOC: ED 13:05 → 2N 13:05 → SUATTDRO 15:47 → 2N 17:22

== ENCOUNTER 2023-07-16 03:09 | Inpatient (IN) ==
[2023-07-16] MEDS ORDERED: SODIUM CHLORIDE 0.9% 1000ML 1,000 ML IV SCH (03:45)
[2023-07-16 04:08] LABS: Basophils # (auto) 0.04 K/uL (0-0.2); Basophils % (auto) 0.3 %; Eosinophils # (auto) 0.02 K/uL (0-0.50); Eosinophils % (auto) 0.2 %; Hematocrit (blood only) 35.7 % (42.0-52.0); Hemoglobin 12.3 g/dl (14.0-18.0); Immature Granulocytes # (auto) 0.02 K/uL (0.01-0.20); Immature Granulocytes % (auto) 0.2 %; Lymphocytes # (auto) 0.46 K/uL (1.2-3.4); Lymphocytes % (auto) 3.8 %; Mean Corpuscular Hemoglobin 29.6 pg (25.0-34.0); Mean Corpuscular Hgb Conc 34.5 g/dL (32.0-36.0); Mean Platelet Volume 11.5 fL (9.4-12.4); Monocytes # (auto) 0.85 K/uL (0.11-0.59); Monocytes % (auto) 6.9 %; Neutrophils # (auto) 10.87 K/uL (1.40-6.50); Neutrophils % (auto) 88.6 %; Platelet Count 224 K/uL (130-400); RDW Coefficient of Variation 14.4 % (11.5-14.5); RDW Standard Deviation 44.3 fL (36.4-46.3); Red Blood Count 4.15 M/uL (4.70-6.10); White Blood Count 12.26 K/ul (4.8-10.8)
--- NOTE | 2023-07-16 04:15 | Emergency Department Note ---
Impression & Plan Altered mental status, Generalized weakness, Fall, Elevated troponin, Abnormal ECG, Hypomagnesemia, Adult failure to thrive ED Provider Note ED Provider Note NAME: MAGALY SMITH AGE:78 SEX: Male : 1945 ARRIVES VIA: EMS INFORMANT: Patient ED PROVIDER(s): Judy Lucas DO CHIEF COMPLAINT: Fall, weakness HPI: This is an 78-year-old male brought by EMS from home following a fall this evening. Per EMS patient was confused, could answer some things but cannot give them much in the way of history or description of the events. Patient here believes he was weak and dizzy when he attempted to walk and that is what led to his fall. He is uncertain if he struck his head. He denies any current pain. Patient's reported to EMS that he is becoming more confused, not eating as much, and losing weight in recent weeks. PAST MEDICAL HISTORY:See Below PAST SURGICAL HISTORY:See Below FAMILY HISTORY:See Below SOCIAL HISTORY:See Below HOME MEDICATIONS:See Below ALLERGIES:See Below VITALS:See Below PHYSICAL EXAMINATION: GENERAL: alert, well appearing, well nourished, no distress, non-toxic EYE EXAM: normal conjunctiva, PERRL and EOM's grossly intact OROPHARYNX: no exudate, no erythema, lips, buccal mucosa, and tongue normal and mucous membranes are dry NECK: supple, no nuchal rigidity, no adenopathy, non-tender LUNGS: Clear to auscultation. Normal chest wall mechanics, no w/r/r HEART: no murmurs, S1 normal and S2 normal ABDOMEN: abdomen soft, non-tender, normo-active bowel sounds, no masses, no rebound or guarding. BACK: Back is symmetrical on inspection and there is no deformity, no midline tenderness, no CVA tenderness. SKIN: no rashes, petechiae, orbruising UPPER EXTREMITIES: upper extremities are grossly normal. FROM, nml pulses b/l. LOWER EXTREMITIES: No pitting edema. FROM, nml pulses b/l. NEURO EXAM: Can answer simple questions, confused to chronology of events, cranial nerves II-XII grossly intact, normal speech, no facial droop,nogross weakness of arms, no gross weakness of legs. Gross sensation intact. No ataxia. Vital Signs: reviewed and remarkable Differential Diagnosis: dehydration, CVA/ICH, anemia, hypoglycemia, hyponatremia, hypernatremia, urinary tract infection, pneumonia, bronchitis, sepsis, gastroenteritis, ACS, dysrhythmia, worsening Parkinson's, dementia, mechanical fall, syncope, as well as others were considered MEDICAL DECISION MAKING: This is an 78-year-old male brought in by EMS after a fall at home. Patient cannot describe much about the fall but simply states he was weak and dizzy. describes a deterioration in his overall condition over recent weeks and months. Patient was afebrile and vital signs stable on arrival. Labs drawn and sent, IV established, EKG and chest x-ray performed at bedside and interpreted by me and patient monitored in telemetry. He was sent for CT head and CT cervical spine to rule out traumatic injury, these were reassuring. He was sent for chest x-ray and pelvic x-ray additionally which were also reassuring. Patient's labs revealed increased creatinine, worse compared to prior on review of EMR although patient does have a history of CKD. Patient also noted to have an elevated troponin as well as an abnormal EKG compared to prior. Patient denied any chest pain or trouble breathing. No prior cardiac history. He was also noted to have mild hypomagnesemia which was repleted in the ER with IV magnesium. No evidence of UTI. Case discussed with the hospitalist for additional evaluation and management. Patient and at bedside verbalized understanding of all results and were in agreement with the plan. Consultation(s): 0614: Discussed with Dr. Dsouza, [facility] hospitalist team. ER Treatment Provided: See below 0520: Discussed symptoms with now at bedside. Diagnostics Interpreted By Me: -ECG: Normal sinus at 93, normal axis, normal intervals, ST depression and inverted T waves noted in 1, 2, aVF, V4 through V6; this appears worse compared to May 26, 2020 -Cardiac Monitoring: An order was placed for continuous cardiac monitoring. The monitor shows a rate of 75 with normal sinus rhythm. -Laboratory studies: As stated above and show below. -Imaging studies: X-ray Chest: A single view study of the chest was reviewed and was negative for cardiomegaly, focal infiltrate, effusion, pulmonary edema, or wide mediastinum. Triage Nursing Note Reviewed Prior/Outside Records Reviewed -prior discharge summary reviewed Past Med/Surg History Medical History Crohn's disease Depression History of colon cancer History of prostate cancer HTN (hypertension) Peripheral neuropathy Tobacco use disorder Urge incontinence Surgical History S/P partial colectomy S/P TURP Family History Other Cancer Hypertension Social History Smoking Status: Current every day smoker Cigarettes Per Day: 1/2 pack; Do You Dip or Chew Tobacco: No; Hx Alcohol Use: No Hx Substance Use: No Preferred Language: Jordanian Communication Ability: Effective Group Fitness Instructor Required: No Beliefs That Will Affect Care: None Current Living Situation: Spouse Feels Safe at Home: Yes Assistive Devices: Denture - Upper Allergies Allergies Allergy/AdvReac Type Severity Reaction Status Date / Time Sulfa (Sulfonamide Allergy Intermediate HIVES Verified 05/26/20 15:10 Antibiotics) Home Meds Home Medications Medication Instructions Recorded Confirmed carvedilol 3.125 mg tablet 3.125 mg PO BID 05/26/20 05/26/20 cholecalciferol (vitamin D3) 10 800 unit PO DAILY 05/26/20 05/26/20 mcg (400 unit) capsule cyanocobalamin (vitamin B-12) 5,000 mcg PO DAILY 05/26/20 05/26/20 5,000 mcg capsule fluoxetine 20 mg capsule 40 mg PO QDL 05/26/20 05/26/20 gabapentin 600 mg tablet 600 mg PO BID 05/26/20 05/26/20 omeprazole 20 mg PO DAILY 07/16/23 07/16/23 Previous Rx's Medication Instructions Recorded aspirin 81 mg tablet,delayed 81 mg PO QAM #100 tabs 05/29/20 release trazodone 100 mg tablet 50 mg PO HS #30 tabs 05/29/20 Results & Data (ED) Vital Signs Vital Signs - 24 hr 07/16/23 03:23 07/16/23 03:24 07/16/23 03:23 Temperature 37.2 C Temperature Source Oral Pulse Rate 99 H 96 H Pulse Rate [Apical] Pulse Rate from SpO2 Sensor Respiratory Rate 14 Respiratory Effort / Characteristics Non-Labored Spontaneous Respiratory Depth Normal Blood Pressure 189/114 H Blood Pressure [Right Arm] Blood Pressure Mean 139 Blood Pressure Mean [Right Arm] Pulse Oximetry 97 95 Oxygen Delivery Method Room Air Room Air Sepsis Recent Fever Within 48 Hours No Sepsis New/Unexplained Change in Mental Status No Sepsis Action Taken by Nursing No Action Required 07/16/23 04:24 07/16/23 04:30 07/16/23 05:00 Temperature Temperature Source Pulse Rate 81 77 88 Pulse Rate [Apical] Pulse Rate from SpO2 Sensor 69 74 Respiratory Rate 22 13 Respiratory Effort / Characteristics Respiratory Depth Blood Pressure 174/117 H 196/110 H Blood Pressure [Right Arm] Blood Pressure Mean 136 138 Blood Pressure Mean [Right Arm] Pulse Oximetry 96 96 Oxygen Delivery Method Sepsis Recent Fever Within 48 Hours Sepsis New/Unexplained Change in Mental Status Sepsis Action Taken by Nursing 07/16/23 05:30 07/16/23 06:54 Temperature Temperature Source Pulse Rate 73 Pulse Rate [Apical] 78 Pulse Rate from SpO2 Sensor Respiratory Rate 19 18 Respiratory Effort / Characteristics Respiratory Depth Blood Pressure 169/101 H Blood Pressure [Right Arm] 167/100 H Blood Pressure Mean 123 Blood Pressure Mean [Right Arm] 122 Pulse Oximetry 96 97 Oxygen Delivery Method Room Air Sepsis Recent Fever Within 48 Hours Sepsis New/Unexplained Change in Mental Status Sepsis Action Taken by Nursing Laboratory Data 07/16/23 03:30 07/16/23 03:30 Lab Results 07/16/23 07/16/23 07/16/23 Range/Units 03:30 03:30 03:30 WBC 12.26 H (4.8-10.8) K/ul RBC 4.15 L (4.70-6.10) M/uL Hgb 12.3 L (14.0-18.0) g/dl Hct 35.7 L (42.0-52.0) % MCV 86.0 (80.0-100.0) fL MCH 29.6 (25.0-34.0) pg MCHC 34.5 (32.0-36.0) g/dL RDW Std Deviation 44.3 (36.4-46.3) fL RDW Coeff of Ruiz 14.4 (11.5-14.5) % Plt Count 224 (130-400) K/uL MPV 11.5 (9.4-12.4) fL Immature Gran % (Auto) 0.2 % Neut % (Auto) 88.6 % Lymph % (Auto) 3.8 % [place] % (Auto) 6.9 % Eos % (Auto) 0.2 % Baso % (Auto) 0.3 % Neut # (Auto) 10.87 H (1.40-6.50) K/uL Lymph # (Auto) 0.46 L (1.2-3.4) K/uL [place] # (Auto) 0.85 H (0.11-0.59) K/uL Eos # (Auto) 0.02 (0-0.50) K/uL Baso # (Auto) 0.04 (0-0.2) K/uL Immature Gran # (Auto) 0.02 (0.01-0.20) K/uL PT 12.2 H (9.0-12.0) Seconds INR 1.1 (0.9-1.1) Sodium 134 L (136-145) mmol/L Potassium 3.3 L (3.5-5.1) mmol/L Chloride 98 (98-107) mmol/L Carbon Dioxide 22 (21-32) mmol/L Anion Gap 14 H (3-11) BUN 32 H (6-23) mg/dl Creatinine 2.02 H (0.6-1.4) mg/dl Est Cr Clr Drug Dosing 25.3 ml/min Est GFR ( Amer) 35.1 ml/min Est GFR (Non-Af Amer) 30.2 ml/min BUN/Creatinine Ratio 15.8 (10-20) Glucose 86 (70-99(Fasting)) mg/dl Calcium 10.3 (8.6-10.3) mg/dl Magnesium 1.5 L (1.7-2.4) mg/dl Total Bilirubin 1.0 (0.2-1.0) mg/dl AST 12 L (13-39) U/L ALT 6 L (7-52) U/L Alkaline Phosphatase 93 (34-104) U/L Total Creatine Kinase 45 (30-223) U/L Troponin I High Sens 33.6 H (0-20) pg/ml Total Protein 7.7 (6.0-8.3) gm/dl Albumin 3.6 (3.4-5.0) gm/dl Globulin 4.1 H (2.5-4.0) gm/dl Albumin/Globulin Ratio 0.9 (0.9-2) Lipase 49 (11-82) U/L TSH (0.300-4.500) uIu/ml Urine Color Urine Appearance (Clear) Urine pH (4.5-7.5) Ur Specific [place] (1.000-1.030) Urine Protein (Negative) Urine Glucose (UA) (Negative) Urine Ketones (Negative) Urine Blood (Negative) Urine Nitrite (Negative) Urine Bilirubin (Negative) Urine Urobilinogen (Negative) Ur Leukocyte Esterase (Negative) Urine WBC (Auto) (0-5) /hpf Urine RBC (Auto) (0-4) /hpf U Hyaline Cast (Auto) (0-5) /lpf U Epithel Cells (Auto) (0-5) /lpf Urine Bacteria (Auto) (Negative) Lyme Disease IgG Ab (Negative) Lyme Disease IgM Ab (Negative) 07/16/23 07/16/23 07/16/23 Range/Units 03:30 03:30 04:09 WBC (4.8-10.8) K/ul RBC (4.70-6.10) M/uL Hgb (14.0-18.0) g/dl Hct (42.0-52.0) % MCV (80.0-100.0) fL MCH (25.0-34.0) pg MCHC (32.0-36.0) g/dL RDW Std Deviation (36.4-46.3) fL RDW Coeff of Ruiz (11.5-14.5) % Plt Count (130-400) K/uL MPV (9.4-12.4) fL Immature Gran % (Auto) % Neut % (Auto) % Lymph % (Auto) % [place] % (Auto) % Eos % (Auto) % Baso % (Auto) % Neut # (Auto) (1.40-6.50) K/uL Lymph # (Auto) (1.2-3.4) K/uL [place] # (Auto) (0.11-0.59) K/uL Eos # (Auto) (0-0.50) K/uL Baso # (Auto) (0-0.2) K/uL Immature Gran # (Auto) (0.01-0.20) K/uL PT (9.0-12.0) Seconds INR (0.9-1.1) Sodium (136-145) mmol/L Potassium (3.5-5.1) mmol/L Chloride (98-107) mmol/L Carbon Dioxide (21-32) mmol/L Anion Gap (3-11) BUN (6-23) mg/dl Creatinine (0.6-1.4) mg/dl Est Cr Clr Drug Dosing ml/min Est GFR ( Amer) ml/min Est GFR (Non-Af Amer) ml/min BUN/Creatinine Ratio (10-20) Glucose (70-99(Fasting)) mg/dl Calcium (8.6-10.3) mg/dl Magnesium (1.7-2.4) mg/dl Total Bilirubin (0.2-1.0) mg/dl AST (13-39) U/L ALT (7-52) U/L Alkaline Phosphatase (34-104) U/L Total Creatine Kinase (30-223) U/L Troponin I High Sens (0-20) pg/ml Total Protein (6.0-8.3) gm/dl Albumin (3.4-5.0) gm/dl Globulin (2.5-4.0) gm/dl Albumin/Globulin Ratio (0.9-2) Lipase (11-82) U/L TSH 1.005 (0.300-4.500) uIu/ml Urine Color Yellow Urine Appearance Clear (Clear) Urine pH 6.5 (4.5-7.5) Ur Specific [place] 1.014 (1.000-1.030) Urine Protein 2+ H (Negative) Urine Glucose (UA) Negative (Negative) Urine Ketones 2+ H (Negative) Urine Blood 2+ H (Negative) Urine Nitrite Negative (Negative) Urine Bilirubin Negative (Negative) Urine Urobilinogen Negative (Negative) Ur Leukocyte Esterase Negative (Negative) Urine WBC (Auto) 1-5 (0-5) /hpf Urine RBC (Auto) 10-30 H (0-4) /hpf U Hyaline Cast (Auto) 1-5 (0-5) /lpf U Epithel Cells (Auto) 10-20 H (0-5) /lpf Urine Bacteria (Auto) Negative (Negative) Lyme Disease IgG Ab Negative (Negative) Lyme Disease IgM Ab Negative (Negative) 07/16/23 Range/Units 06:43 WBC (4.8-10.8) K/ul RBC (4.70-6.10) M/uL Hgb (14.0-18.0) g/dl Hct (42.0-52.0) % MCV (80.0-100.0) fL MCH (25.0-34.0) pg MCHC (32.0-36.0) g/dL RDW Std Deviation (36.4-46.3) fL RDW Coeff of Ruiz (11.5-14.5) % Plt Count (130-400) K/uL MPV (9.4-12.4) fL Immature Gran % (Auto) % Neut % (Auto) % Lymph % (Auto) % [place] % (Auto) % Eos % (Auto) % Baso % (Auto) % Neut # (Auto) (1.40-6.50) K/uL Lymph # (Auto) (1.2-3.4) K/uL [place] # (Auto) (0.11-0.59) K/uL Eos # (Auto) (0-0.50) K/uL Baso # (Auto) (0-0.2) K/uL Immature Gran # (Auto) (0.01-0.20) K/uL PT (9.0-12.0) Seconds INR (0.9-1.1) Sodium (136-145) mmol/L Potassium (3.5-5.1) mmol/L Chloride (98-107) mmol/L Carbon Dioxide (21-32) mmol/L Anion Gap (3-11) BUN (6-23) mg/dl Creatinine (0.6-1.4) mg/dl Est Cr Clr Drug Dosing ml/min Est GFR ( Amer) ml/min Est GFR (Non-Af Amer) ml/min BUN/Creatinine Ratio (10-20) Glucose (70-99(Fasting)) mg/dl Calcium (8.6-10.3) mg/dl Magnesium (1.7-2.4) mg/dl Total Bilirubin (0.2-1.0) mg/dl AST (13-39) U/L ALT (7-52) U/L Alkaline Phosphatase (34-104) U/L Total Creatine Kinase (30-223) U/L Troponin I High Sens 42.7 H (0-20) pg/ml Total Protein (6.0-8.3) gm/dl Albumin (3.4-5.0) gm/dl Globulin (2.5-4.0) gm/dl Albumin/Globulin Ratio (0.9-2) Lipase (11-82) U/L TSH (0.300-4.500) uIu/ml Urine Color Urine Appearance (Clear) Urine pH (4.5-7.5) Ur Specific [place] (1.000-1.030) Urine Protein (Negative) Urine Glucose (UA) (Negative) Urine Ketones (Negative) Urine Blood (Negative) Urine Nitrite (Negative) Urine Bilirubin (Negative) Urine Urobilinogen (Negative) Ur Leukocyte Esterase (Negative) Urine WBC (Auto) (0-5) /hpf Urine RBC (Auto) (0-4) /hpf U Hyaline Cast (Auto) (0-5) /lpf U Epithel Cells (Auto) (0-5) /lpf Urine Bacteria (Auto) (Negative) Lyme Disease IgG Ab (Negative) Lyme Disease IgM Ab (Negative) Administered Medications Magnesium Sulfate/Dextrose (Magnesium Sulfate / D5w) 1 gm in 100 mls @ 50 mls/ hr IV ONE ONE Stop: 07/16/23 08:18 Last Admin: 07/16/23 07:10 Dose: 50 mls/hr Documented By: TEENA Potassium Chloride/Sodium Chloride (Normal Saline W/20 Meq Kcl) 20 meq in 1,000 mls @ 60 mls/hr IV .[id number]; Protocol Stop: 07/16/23 23:09 Last Admin: 07/16/23 07:10 Dose: 60 mls/hr Documented By: TEENA Discontinued Medications Carvedilol (Carvedilol 3.125 Mg Tab) 3.125 mg PO NOW STA Stop: 07/16/23 06:17 Last Admin: 07/16/23 07:09 Dose: 3.125 mg Documented By: TEENA Sodium Chloride (Nss 1000ml) 1,000 mls @ 125 mls/hr IV .Q8H PETER Stop: 08/15/23 03:44 Last Admin: 07/16/23 04:14 Dose: 125 mls/hr Documented By: LEONIDAS Magnesium Sulfate/Dextrose (Magnesium Sulfate / D5w) 1 gm in 100 mls @ 100 mls/hr IV NOW STA Stop: 07/16/23 05:40 Last Infusion: 07/16/23 06:03 Dose: 0 mls/hr Documented By: Admin: 07/16/23 05:01 Dose: 100 mls/hr Documented By: LEONIDAS Imaging Data Radiologist's Impression: Cervical Spine CT 07/16/23 03:38 Exam(s): CT C SPINE EXAM: CT Cervical Spine Without Intravenous Contrast CLINICAL HISTORY: Reason for exam: trauma. TECHNIQUE: Axial computed tomography images of the cervical spine without intravenous contrast. Automated exposure control was utilized for the study. A dose lowering technique was utilized adhering to the principles of ALARA. COMPARISON: No relevant prior studies available. FINDINGS: Vertebrae: No evidence of acutely displaced fracture or dislocation within the cervical spine. Consider MRI if there is further concern. Degenerative changes in the cervical spine noted including loss of disc space height, osteophyte formation, uncovertebral hypertrophy, and facet arthropathy. Facet ankylosis at C6-C7. Partial vertebral body ankylosis at C4-C5. Soft tissues: Unremarkable. Esophagus: Patulous appearance of the proximal esophagus. IMPRESSION: 1. No evidence of acutely displaced fracture or dislocation within the cervical spine. Consider MRI if there is further concern. 2. Patulous appearance of the proximal esophagus. 3. Degenerative changes. Electronically signed by: Jamel Caballero MD 07/16/23 05:53 AM Chest X-Ray 07/16/23 03:38 XR chest 1V portable HISTORY: 78 years-old Male trauma acute chest trauma COMPARISON: CT cervical spine of same day, chest radiograph 10/19/2010 TECHNIQUE: AP view of the chest FINDINGS: Cardiomediastinal and hilar silhouettes are within normal limits. No pneumothora x, pleural effusion, airspace consolidation or pulmonary edema. Chronic interstitial coarsening. Atherosclerosis of the aorta. Bones appear grossly intact. IMPRESSION: No acute process. ACT 112: Negative or not required by law. The above report was generated using voice recognition software. It may contain grammatical, syntax or spelling errors. Electronically signed by: Roc Bateman M.D. 07/16/2023 7:[address] 07/16/23 03:38 Exam(s): CT HEAD Without Contrast EXAM: CT Head Without Intravenous Contrast CLINICAL HISTORY: Reason for exam: trauma. TECHNIQUE: Axial computed tomography images of the head/brain without intravenous contrast. Automated exposure control was utilized for the study. A dose lowering technique was utilized adhering to the principles of ALARA. COMPARISON: MRI brain dated may 26 2020 FINDINGS: Brain: No acute intracranial abnormality. Consider MRI if there is further concern. Areas of decreased attenuation in the deep cerebral white matter are consistent with small vessel ischemic/degenerative changes. The cerebral and cerebellar sulci are prominent consistent with brain atrophy. No hemorrhage. Ventricles: Unremarkable. No ventriculomegaly. Bones/joints: Unremarkable. No acute fracture. Soft tissues: Unremarkable. Vasculature: Atherosclerotic disease. Sinuses: Unremarkable as visualized. Mastoid air cells: Unremarkable as visualized. No mastoid effusion. Orbits: Left lens replacement. IMPRESSION: 1. No acute intracranial abnormality. Consider MRI if there is further concern. 2. Small vessel ischemic/degenerative changes. 3. Cerebral and cerebellar atrophy. Electronically signed by: Jamel Caballero MD 07/16/23 05:54 AM Pelvis X-Ray 07/16/23 03:38 XR pelvis 1-2V routine CLINICAL HISTORY: trauma TECHNIQUE: A single frontal view of the pelvis was obtained. Comparison: None available at the time of this dictation. FINDINGS: There is no evidence of an acute fracture. Degenerative changes are seen in the hip joints and lumbar spine. Vascular calcifications are noted. IMPRESSION: No evidence of acute osseous injury. ACT 112: Negative or not required by law. Electronically signed by: Alvarez Smith M.D. 07/16/2023 7:25 AM Discharge Plan Visit Data Chief Complaint: Fall ED Provider: Judy Lucas Discharge Problem: Altered mental status, Generalized weakness, Fall, Elevated troponin, Abnormal ECG, Hypomagnesemia, Adult failure to thrive Patient Disposition: Being Evaluated by Hospitalist Condition: Good Forms Stand Alone Forms: My [employer] Prescriptions Prescriptions: No Action gabapentin 600 mg tablet 600 mg PO BID Rx Instructions: Take with 800mg to make 1400mg total dose. carvedilol 3.125 mg tablet 3.125 mg PO BID fluoxetine 20 mg capsule 40 mg PO QDL cholecalciferol (vitamin D3) 10 mcg (400 unit) Capsule 800 unit PO DAILY cyanocobalamin (vitamin B-12) 5,000 mcg Capsule 5,000 mcg PO DAILY aspirin 81 mg Tablet,Delayed Release (/Ec) 81 mg PO QAM Qty: 100 0RF trazodone 100 mg Tablet 50 mg PO HS Qty: 30 0RF omeprazole 20 mg PO DAILY Referrals Referrals: Carson Sol MD [Primary Care Provider] -
[2023-07-16 04:18] LABS: Albumin Globulin Ratio 0.9 (0.9-2); Albumin Level 3.6 gm/dl (3.4-5.0); BUN Creatinine Ratio 15.8 (10-20); Calcium 10.3 mg/dl (8.6-10.3); Creatinine Clr Calc Pharmacy 25.3 ml/min; Est GFR (African American) 35.1 ml/min; Est GFR (Non-African American) 30.2 ml/min; Globulin 4.1 gm/dl (2.5-4.0); Magnesium 1.5 mg/dl (1.7-2.4); Potassium 3.3 mmol/L (3.5-5.1); Total Protein 7.7 gm/dl (6.0-8.3)
[2023-07-16 04:25] LABS: Troponin I High Sensitivity 33.6 pg/ml (0-20)
[2023-07-16 04:30] LABS: INR 1.1 (0.9-1.1); Prothrombin Time 12.2 Seconds (9.0-12.0)
[2023-07-16] MEDS ORDERED: MAGNESIUM SULFATE / D5W 1 GM/100 ML BAG IV STA (04:41)
[2023-07-16 04:42] LABS: Appearance Urine Clear (Clear); Bacteria Urine Automated Negative (Negative); Bilirubin Urine Negative (Negative); Blood Urine 2+ (Negative); Color Urine Yellow; Glucose Urine UA Negative (Negative); Ketones Urine 2+ (Negative); Leukocyte Esterase Urine Negative (Negative); Nitrite Urine Negative (Negative); Protein Urine 2+ (Negative); Specific Gravity Urine 1.014 (1.000-1.030); Urobilinogen Urine Negative (Negative); pH Urine 6.5 (4.5-7.5)
[2023-07-16 05:15] LABS: Lyme Ab IgG w/WB Rflx Negative (Negative); Lyme Ab IgM w/WB Rflx Negative (Negative)
--- NOTE | 2023-07-16 05:54 | CT Scan Report ---
Exam(s): CT C SPINE EXAM: CT Cervical Spine Without Intravenous Contrast CLINICAL HISTORY: Reason for exam: trauma. TECHNIQUE: Axial computed tomography images of the cervical spine without intravenous contrast. Automated exposure control was utilized for the study. A dose lowering technique was utilized adhering to the principles of ALARA. COMPARISON: No relevant prior studies available. FINDINGS: Vertebrae: No evidence of acutely displaced fracture or dislocation within the cervical spine. Consider MRI if there is further concern. Degenerative changes in the cervical spine noted including loss of disc space height, osteophyte formation, uncovertebral hypertrophy, and facet arthropathy. Facet ankylosis at C6-C7. Partial vertebral body ankylosis at C4-C5. Soft tissues: Unremarkable. Esophagus: Patulous appearance of the proximal esophagus. IMPRESSION: 1. No evidence of acutely displaced fracture or dislocation within the cervical spine. Consider MRI if there is further concern. 2. Patulous appearance of the proximal esophagus. 3. Degenerative changes. Electronically signed by: Jamel Caballero MD 07/16/23 05:53 AM
--- NOTE | 2023-07-16 05:55 | CT Scan Report ---
Exam(s): CT HEAD Without Contrast EXAM: CT Head Without Intravenous Contrast CLINICAL HISTORY: Reason for exam: trauma. TECHNIQUE: Axial computed tomography images of the head/brain without intravenous contrast. Automated exposure control was utilized for the study. A dose lowering technique was utilized adhering to the principles of ALARA. COMPARISON: MRI brain dated may 26 2020 FINDINGS: Brain: No acute intracranial abnormality. Consider MRI if there is further concern. Areas of decreased attenuation in the deep cerebral white matter are consistent with small vessel ischemic/degenerative changes. The cerebral and cerebellar sulci are prominent consistent with brain atrophy. No hemorrhage. Ventricles: Unremarkable. No ventriculomegaly. Bones/joints: Unremarkable. No acute fracture. Soft tissues: Unremarkable. Vasculature: Atherosclerotic disease. Sinuses: Unremarkable as visualized. Mastoid air cells: Unremarkable as visualized. No mastoid effusion. Orbits: Left lens replacement. IMPRESSION: 1. No acute intracranial abnormality. Consider MRI if there is further concern. 2. Small vessel ischemic/degenerative changes. 3. Cerebral and cerebellar atrophy. Electronically signed by: Jamel Caballero MD 07/16/23 05:54 AM
[2023-07-16] MEDS ORDERED: carvediloL 3.125 MG TAB PO STA (06:16)
[2023-07-16] MEDS ORDERED: MAGNESIUM SULFATE / D5W 1 GM/100 ML BAG IV ONE (06:19)
[2023-07-16] MEDS ORDERED: POTASSIUM CHLORIDE PWD 20 MEQ PACK PO STA (06:24)
[2023-07-16] MEDS ORDERED: NSS + 20MEQ KCL 20 MEQ/1,000 ML BAG IV ONE (06:30)
--- NOTE | 2023-07-16 06:49 | History & Physical Report ---
Date of Service July 16, 2023 Assessment & Plan (1) Asymptomatic hypertensive urgency: Plan: ? Compliance Worsening functional debility, possible Parkinson's dementia Abnormal EKG, troponin elevation secondary to above Hypokalemia secondary to decreased p.o. intake hyperlipidemia, statin noncompliant as per hx TIA/PVD mild aortic stenosis from TTE 2019 CRI, creatinine close to baseline mood disorder hx Crohn's disease, stable off medications as per ileal cancer status post surgery hx GERD prostate cancer status post surgery left renal mass possible malignancy, incidental finding on outpatient imaging June 2020 CRI close to baseline chronic anemia, at baseline ongoing tobacco abuse OBS Medical telemetry Titrate home Coreg Initiate amlodipine if still uncontrolled Follow troponin Update TTE given history aortic stenosis Replace electrolytes Appropriate to hold neuropsychotropic medications for now given confusion Neurology consult Re: Worsening mentation, disability, possible Parkinson's dementia PT OT eval, may need placement Nicotine patch as needed DVT prophylaxis. Heparin subcu DNR as patient's prior directives as per . Patient requesting for updates providers. Ana Jossy, contact #[phone]. Text document was generated using [employer] voice recognition software. It may contain grammatical or spelling errors. Kindly contact undersigned for clarification of any documentation item in question. History of Present Illness Chief Complaint: I do not know as per patient Fall, worsening confusion/weakness as per Primary Care Provider: Carson Sol MD History obtained from patient, family, and records. Limited history from patient secondary to confusion. Medical history significant for hypertension, hyperlipidemia, PVD, TIA, mild aortic stenosis, Parkinson's disease, CRI (baseline creatinine 2 ), mood disorder, Crohn's disease, ileal cancer status post surgery, GERD, prostate cancer status post surgery, left renal mass possible malignancy, chronic anemia (baseline hemoglobin of 12), ongoing tobacco abuse. Last 2019 for strokelike symptoms attributed to UTI. Patient seen by [facility]rology on video appointment last January 2023 for tremors. Consideration for parkinsonism. Carbidopa/levodopa trial recommended. Patient unable to comply with medication recommendation. Patient presented with ambulatory dysfunction, depression, amotivation symptoms on last PCP visit 3 months ago. Progressive decline over the last few months as per . Increased confusion, not talking a lot, not eating as much. Patient does not want to go to the doctor's office or rehab. Patient medical alert device activated last night. Patient's checked on patient and found him on the floor. Patient more confused than usual as per . Patient had trouble getting up. Not sure how he fell down or if he passed out. Denies chest pain, SOB, abdominal pain, headache. No witnessed seizures or incontinence. Patient brought to the ER for evaluation. 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 Allergies Allergy/AdvReac Type Severity Reaction Status Date / Time Sulfa (Sulfonamide Allergy Intermediate HIVES Verified 07/16/23 10:04 Antibiotics) Home Medications Medication Instructions Recorded Confirmed Type carvedilol 3.125 mg tablet 3.125 mg PO BID 05/26/20 07/16/23 History cholecalciferol (vitamin D3) 10 800 unit PO DAILY 05/26/20 07/16/23 History mcg (400 unit) capsule cyanocobalamin (vitamin B-12) 5,000 mcg PO DAILY 05/26/20 07/16/23 History 5,000 mcg capsule gabapentin 600 mg tablet 600 mg PO BID 05/26/20 07/16/23 History aspirin 81 mg tablet,delayed 81 mg PO QAM #100 tabs 05/29/20 07/16/23 Rx release trazodone 100 mg tablet 50 mg PO HS #30 tabs 05/29/20 07/16/23 Rx fluoxetine 40 mg capsule 40 mg PO QAM 07/16/23 07/16/23 History omeprazole 20 mg capsule,delayed 20 mg PO DAILY 07/16/23 07/16/23 History release Past Med/Surg History Medical History Crohn's disease Depression History of colon cancer History of prostate cancer HTN (hypertension) Peripheral neuropathy Tobacco use disorder Urge incontinence Surgical History S/P partial colectomy S/P TURP Family History Other Cancer Hypertension Social History Smoking Status: Current every day smoker Cigarettes Per Day: 1/2 pack; Do You Dip or Chew Tobacco: No; Hx Alcohol Use: No Hx Substance Use: No Preferred Language: Bahamian Communication Ability: Effective Metal Roofer Required: No Beliefs That Will Affect Care: None Current Living Situation: Spouse Feels Safe at Home: Yes Assistive Devices: Denture - Upper Review of Systems Review of Systems: Could not be reliably obtained secondary to disorientation Physical Exam Physical Exam: GENERAL: Apathetic, underweight, unkempt, no respiratory distress SKIN: Pallor, warm HEENT: Pale palpebral conjunctivae, no ptosis, dry buccal mucosa NECK : Supple, no tenderness CHEST : CTA, no tenderness HEART : Tachycardic, systolic murmur ABDOMEN: No distention, nontender EXTREMITIES : Minimal LE swelling, no LE tenderness, no other conspicuous deformities noted NEUROLOGIC : Coherent, no facial asymmetry, slightly hard of hearing, gait and stance not assessed Results & Data Results & Data Vital Signs (Past 12 Hours) Vital Signs Temp Pulse Resp BP Pulse Ox O2 Del Method 07/16/23 05:30 73 19 169/101 H 96 07/16/23 05:00 88 13 196/110 H 96 07/16/23 04:30 77 22 174/117 H 96 07/16/23 04:24 81 07/16/23 03:23 96 H 07/16/23 03:24 37.2 C 99 H 14 189/114 H 95 Room Air 07/16/23 03:23 97 Room Air Laboratory Results Laboratory Results WBC 12.26 K/ul (4.8-10.8) H 07/16/23 03:30 RBC 4.15 M/uL (4.70-6.10) L 07/16/23 03:30 Hgb 12.3 g/dl (14.0-18.0) L 07/16/23 03:30 Hct 35.7 % (42.0-52.0) L 07/16/23 03:30 MCV 86.0 fL (80.0-100.0) 07/16/23 03:30 MCH 29.6 pg (25.0-34.0) 07/16/23 03:30 MCHC 34.5 g/dL (32.0-36.0) 07/16/23 03:30 RDW Std Deviation 44.3 fL (36.4-46.3) 07/16/23 03:30 RDW Coeff of Ruiz 14.4 % (11.5-14.5) 07/16/23 03:30 Plt Count 224 K/uL (130-400) 07/16/23 03:30 MPV 11.5 fL (9.4-12.4) 07/16/23 03:30 Immature Gran % (Auto) 0.2 % 07/16/23 03:30 Neut % (Auto) 88.6 % 07/16/23 03:30 Lymph % (Auto) 3.8 % 07/16/23 03:30 [place] % (Auto) 6.9 % 07/16/23 03:30 Eos % (Auto) 0.2 % 07/16/23 03:30 Baso % (Auto) 0.3 % 07/16/23 03:30 Neut # (Auto) 10.87 K/uL (1.40-6.50) H 07/16/23 03:30 Lymph # (Auto) 0.46 K/uL (1.2-3.4) L 07/16/23 03:30 [place] # (Auto) 0.85 K/uL (0.11-0.59) H 07/16/23 03:30 Eos # (Auto) 0.02 K/uL (0-0.50) 07/16/23 03:30 Baso # (Auto) 0.04 K/uL (0-0.2) 07/16/23 03:30 Immature Gran # (Auto) 0.02 K/uL (0.01-0.20) 07/16/23 03:30 PT 12.2 Seconds (9.0-12.0) H 07/16/23 03:30 INR 1.1 (0.9-1.1) 07/16/23 03:30 Sodium 134 mmol/L (136-145) L 07/16/23 03:30 Potassium 3.3 mmol/L (3.5-5.1) L 07/16/23 03:30 Chloride 98 mmol/L (98-107) 07/16/23 03:30 Carbon Dioxide 22 mmol/L (21-32) 07/16/23 03:30 Anion Gap 14 (3-11) H 07/16/23 03:30 BUN 32 mg/dl (6-23) H 07/16/23 03:30 Creatinine 2.02 mg/dl (0.6-1.4) H 07/16/23 03:30 Est Cr Clr Drug Dosing 25.3 ml/min 07/16/23 03:30 Est GFR ( Amer) 35.1 ml/min 07/16/23 03:30 Est GFR (Non-Af Amer) 30.2 ml/min 07/16/23 03:30 BUN/Creatinine Ratio 15.8 (10-20) 07/16/23 03:30 Glucose 86 mg/dl (70-99(Fasting)) 07/16/23 03:30 Calcium 10.3 mg/dl (8.6-10.3) 07/16/23 03:30 Magnesium 1.5 mg/dl (1.7-2.4) L 07/16/23 03:30 Total Bilirubin 1.0 mg/dl (0.2-1.0) 07/16/23 03:30 AST 12 U/L (13-39) L 07/16/23 03:30 ALT 6 U/L (7-52) L 07/16/23 03:30 Alkaline Phosphatase 93 U/L (34-104) 07/16/23 03:30 Total Creatine Kinase 45 U/L (30-223) 07/16/23 03:30 Troponin I High Sens 33.6 pg/ml (0-20) H 07/16/23 03:30 Total Protein 7.7 gm/dl (6.0-8.3) 07/16/23 03:30 Albumin 3.6 gm/dl (3.4-5.0) 07/16/23 03:30 Globulin 4.1 gm/dl (2.5-4.0) H 07/16/23 03:30 Albumin/Globulin Ratio 0.9 (0.9-2) 07/16/23 03:30 Lipase 49 U/L (11-82) 07/16/23 03:30 TSH 1.005 uIu/ml (0.300-4.500) 07/16/23 03:30 Urine Color Yellow 07/16/23 04:09 Urine Appearance Clear (Clear) 07/16/23 04:09 Urine pH 6.5 (4.5-7.5) 07/16/23 04:09 Ur Specific [place] 1.014 (1.000-1.030) 07/16/23 04:09 Urine Protein 2+ (Negative) H 07/16/23 04:09 Urine Glucose (UA) Negative (Negative) 07/16/23 04:09 Urine Ketones 2+ (Negative) H 07/16/23 04:09 Urine Blood 2+ (Negative) H 07/16/23 04:09 Urine Nitrite Negative (Negative) 07/16/23 04:09 Urine Bilirubin Negative (Negative) 07/16/23 04:09 Urine Urobilinogen Negative (Negative) 07/16/23 04:09 Ur Leukocyte Esterase Negative (Negative) 07/16/23 04:09 Urine WBC (Auto) 1-5 /hpf (0-5) 07/16/23 04:09 Urine RBC (Auto) 10-30 /hpf (0-4) H 07/16/23 04:09 U Hyaline Cast (Auto) 1-5 /lpf (0-5) 07/16/23 04:09 U Epithel Cells (Auto) 10-20 /lpf (0-5) H 07/16/23 04:09 Urine Bacteria (Auto) Negative (Negative) 07/16/23 04:09 Lyme Disease IgG Ab Negative (Negative) 07/16/23 03:30 Lyme Disease IgM Ab Negative (Negative) 07/16/23 03:[address] 07/16/23 03:38 Exam(s): CT C SPINE EXAM: CT Cervical Spine Without Intravenous Contrast CLINICAL HISTORY: Reason for exam: trauma. TECHNIQUE: Axial computed tomography images of the cervical spine without intravenous contrast. Automated exposure control was utilized for the study. A dose lowering technique was utilized adhering to the principles of ALARA. COMPARISON: No relevant prior studies available. FINDINGS: Vertebrae: No evidence of acutely displaced fracture or dislocation within the cervical spine. Consider MRI if there is further concern. Degenerative changes in the cervical spine noted including loss of disc space height, osteophyte formation, uncovertebral hypertrophy, and facet arthropathy. Facet ankylosis at C6-C7. Partial vertebral body ankylosis at C4-C5. Soft tissues: Unremarkable. Esophagus: Patulous appearance of the proximal esophagus. IMPRESSION: 1. No evidence of acutely displaced fracture or dislocation within the cervical spine. Consider MRI if there is further concern. 2. Patulous appearance of the proximal esophagus. 3. Degenerative changes. Electronically signed by: Jamel Caballero MD 07/16/23 05:[address] 07/16/23 03:38 Exam(s): CT HEAD Without Contrast EXAM: CT Head Without Intravenous Contrast CLINICAL HISTORY: Reason for exam: trauma. TECHNIQUE: Axial computed tomography images of the head/brain without intravenous contrast. Automated exposure control was utilized for the study. A dose lowering technique was utilized adhering to the principles of ALARA. COMPARISON: MRI brain dated may 26 2020 FINDINGS: Brain: No acute intracranial abnormality. Consider MRI if there is further concern. Areas of decreased attenuation in the deep cerebral white matter are consistent with small vessel ischemic/degenerative changes. The cerebral and cerebellar sulci are prominent consistent with brain atrophy. No hemorrhage. Ventricles: Unremarkable. No ventriculomegaly. Bones/joints: Unremarkable. No acute fracture. Soft tissues: Unremarkable. Vasculature: Atherosclerotic disease. Sinuses: Unremarkable as visualized. Mastoid air cells: Unremarkable as visualized. No mastoid effusion. Orbits: Left lens replacement. IMPRESSION: 1. No acute intracranial abnormality. Consider MRI if there is further concern. 2. Small vessel ischemic/degenerative changes. 3. Cerebral and cerebellar atrophy. Electronically signed by: Jamel Caballero MD 07/16/23 05:54 AM Diagnostic Findings EKG as per my interpretation : Rate 95, NSR, normal axis, LVH, T wave abnormalities inferior and lateral leads
--- NOTE | 2023-07-16 07:10 | XRay Report ---
XR chest 1V portable HISTORY: 78 years-old Male trauma acute chest trauma COMPARISON: CT cervical spine of same day, chest radiograph 10/19/2010 TECHNIQUE: AP view of the chest FINDINGS: Cardiomediastinal and hilar silhouettes are within normal limits. No pneumothorax, pleural effusion, airspace consolidation or pulmonary edema. Chronic interstitial coarsening. Atherosclerosis of the ao rta. Bones appear grossly intact. IMPRESSION: No acute process. ACT 112: Negative or not required by law. The above report was generated using voice recognition software. It may contain grammatical, syntax o r spelling errors. Electronically signed by: Roc Bateman M.D. 07/16/2023 7:08 AM
--- NOTE | 2023-07-16 07:26 | XRay Report ---
XR pelvis 1-2V routine CLINICAL HISTORY: trauma TECHNIQUE: A single frontal view of the pelvis was obtained. Comparison: None available at the time of this dictation. FINDINGS: There is no evidence of an acute fracture. Degenerative changes are seen in the hip joints and lumbar spine. Vascular calcifications are noted. IMPRESSION: No evidence of acute osseous injury. ACT 112: Negative or not required by law. Electronically signed by: Alvarez Smith M.D. 07/16/2023 7:25 AM
[2023-07-16] MEDS ORDERED: traMADol HCL 50 MG TABLET PO PRN (07:32)
[2023-07-16] MEDS ORDERED: ACETAMINOPHEN 325 MG TAB PO PRN (10:16)
[2023-07-16] MEDS: carvediloL 3.125 MG TAB PO SCH ×2 (11:06→21:26)
[2023-07-16] MEDS: ASPIRIN 81 MG ECTAB PO SCH (11:07)
[2023-07-16] MEDS: CYANOCOBALAMIN (B-12) 2,500 MCG TABLET PO SCH (11:07)
[2023-07-16] MEDS: PANTOprazole 40 MG TAB PO SCH (11:07)
--- NOTE | 2023-07-16 12:21 | Neurology Consultation ---
Date of Consultation July 16, 2023 Assessment & Plan (1) Parkinsonism: (2) Dementia: (3) Peripheral neuropathy: Plan 78-year-old male with parkinsonism and probable mild to moderate dementia, presenting with subacute progressive failure to thrive, confusion, generalized weakness, fall, weight loss, poor dietary intake. He has a mild perioral tremor, rigidity, and bradykinesia on examination. He is also mildly inattentive and may have a superimposed mild delirium. His CT of the head is negative for hemorrhage or acute process, but does reveal generalized atrophy and moderately extensive chronic small vessel ischemic disease. Imaging not suggestive of normal pressure hydrocephalus. I would not initiate a trial of carbidopa levodopa at this time, especially in the context of altered mental status, probable mild delirium. Furthermore, I suspect the potential benefit of a carbidopa levodopa trial would be minimal, relative to potential for side effects in this patient. Likewise, I would not recommend starting a trial of a cholinesterase inhibitor at this time. Potential trials of these medications could be considered once patient's status is stabilized from medical standpoint, perhaps as an outpatient. For his peripheral neuropathy, would consider reduci ng his dosage of gabapentin to 300 mg twice daily and observe for any improvement in his delirium or cognitive status. History of Present Illness Reason for Consultation: possible PD/dementia Requesting Physician: O[place]elo Attending Physician: Orville Montero MD History of Present Illness The patient is an 78-year-old male who presented to the emergency department overnight in the context of a fall and altered mental status. He complained of weakness and dizziness with attempts to walk. He lives with his spouse who has indicated his condition has been deteriorating for several months. Past medical history notable for acute on chronic kidney disease, peripheral neuropathy, Crohn's disease, hypertension, history of prostate and colon cancer, tobacco use disorder. He did have a CT of the head and cervical spine completed. CT of the head was negative for hemorrhage or acute process, there was generalized atrophy and chronic small vessel ischemic disease. Cervical spine MRI was negative for acutely displaced fracture or dislocation. I did independently review these images and note extensive chronic small vessel ischemic change and generalized atrophy on CT of the head as described by radiology. Imaging not suggestive of normal pressure hydrocephalus. I did review recent labs. WBC 12.26, hemoglobin 12.3, hematocrit 35.7, count 224, sodium 134, potassium 3.3, BUN 32, creatinine 2.02, glucose 86, calcium 10.3, magnesium 1.5, AST 12, ALT 6, troponin 42.7, TSH 1.005, Lyme screening negative. Vitamin B12 level in 2019 was 465, and RPR at that time was nonreactive. I see that he saw Dr. Jennifer Nunes, [facility] neurology, in May 2020 in the context of a hospitalization with concern for TIA or stroke. Impression at that time was of an element of dementia with some fluctuating level of alertness suggestive of delirium. A reduction in dosage of gabapentin was recommended at that time. His gait dysfunction was felt to be multifactorial and in part related to his history of chemotherapy-induced peripheral neuropathy although he was felt to have some features of Parkinson's disease as well with observation of minor left hand resting tremor and cogwheel rigidity as well as generalized bradykinesia, mild shuffling gait and associated turning en bloc. The patient is an unreliable historian. Allergies Allergy/AdvReac Type Severity Reaction Status Date / Time Sulfa (Sulfonamide Allergy Intermediate HIVES Verified 07/16/23 10:04 Antibiotics) Home Medications Medication Instructions Recorded Confirmed Type carvedilol 3.125 mg tablet 3.125 mg PO BID 05/26/20 07/16/23 History cholecalciferol (vitamin D3) 10 800 unit PO DAILY 05/26/20 07/16/23 History mcg (400 unit) capsule cyanocobalamin (vitamin B-12) 5,000 mcg PO DAILY 05/26/20 07/16/23 History 5,000 mcg capsule gabapentin 600 mg tablet 600 mg PO BID 05/26/20 07/16/23 History aspirin 81 mg tablet,delayed 81 mg PO QAM #100 tabs 05/29/20 07/16/23 Rx release trazodone 100 mg tablet 50 mg PO HS #30 tabs 05/29/20 07/16/23 Rx fluoxetine 40 mg capsule 40 mg PO QAM 07/16/23 07/16/23 History omeprazole 20 mg capsule,delayed 20 mg PO DAILY 07/16/23 07/16/23 History release Patient History Medical History Crohn's disease Depression History of colon cancer History of prostate cancer HTN (hypertension) Peripheral neuropathy Tobacco use disorder Urge incontinence Surgical History S/P partial colectomy S/P TURP Family History Other Cancer Hypertension Social History Smoking Status: Current every day smoker Cigarettes Per Day: 1/2 pack; Do You Dip or Chew Tobacco: No; Hx Alcohol Use: No Hx Substance Use: No Preferred Language: Mohawk Communication Ability: Effective Rock Picker Required: No Beliefs That Will Affect Care: None Current Living Situation: Spouse Feels Safe at Home: Yes Assistive Devices: Denture - Upper Review of Systems Constitutional: no fever and no chills Eyes: no blind spots and no diplopia Ear, Nose, Mouth, Throat: no hearing loss Respiratory: no cough and no dyspnea Cardiovascular: no chest pain and no palpitations Gastrointestinal: no nausea and no vomiting Genitourinary: no dysuria Musculoskeletal: no back pain and no myalgia Integumentary: no rash and no lesions Neurologic: as per Subjective / HPI, + unsteadiness, + falls, + generalized weakness, + tremor(s) and + memory loss; no headache(s) Psychiatric: no depression, no anxiety and no hallucinations Hematologic / Lymphatic: no easy bleeding and no easy bruising Exam (Neuro) Constitutional: well developed and + frail appearing; no acute distress Eyes: normal visual cobian by confrontation, PERRL and EOM intact bilaterally Cardiovascular: Vessels: no carotid bruit Neurologic: Oriented to:: Person; negative Place or Time Memory: negative Short Term Intact or Remote Intact Attention: negative Span Intact or Concentration Intact Speech Fluency: Slowed and Other (Mild hypophonia); negative Dysarthria Speech Aphasia: negative Aphasia Fund of Knowledge: Vocabulary; negative Current Events Cranial Nerves: Normal II, III, IV, , V, VII, VIII, IX, X, XI and XII Motor Strength: Normal Lower Extremities and Normal Upper Extremities Rigidity: Rigidity Muscle Bulk/Involuntary Movements: negative No Involuntary Movements (Mild fairly persistent perioral tremor noted) or Pill Rolling Tremor Sensation: Light Touch Intact; negative Pain/Temperature Intact or Vibration Intact Coordination: negative Dysdiadochokinesia, Finger-Nose Abnormal or Heel-[place] Abnormal Deep Tendon Reflexes: Rt Triceps: 2+, Lt Triceps: 2+, Rt Biceps: 2+, Lt Biceps: 2+, Rt Brachioradialis: 2+, Lt Brachioradialis: 2+, Rt Patellar: 2+, Lt Patellar: 2+, Rt Ankle: 1+ and Lt Ankle: 1+ Special Tests: negative Babinski Present Details: Gait cannot be tested Results & Data Vital Signs (Past 12 Hours) Vital Signs Temp Pulse Pulse Resp BP BP Pulse Ox 07/16/23 09:34 71 07/16/23 08:00 70 18 171/112 H 98 07/16/23 06:54 78 18 167/100 H 97 07/16/23 05:30 73 19 169/101 H 96 07/16/23 05:00 88 13 196/110 H 96 07/16/23 04:30 77 22 174/117 H 96 07/16/23 04:24 81 07/16/23 03:23 96 H 07/16/23 03:24 37.2 C 99 H 14 189/114 H 95 07/16/23 03:23 97 O2 Del Method 07/16/23 09:34 07/16/23 08:00 Room Air 07/16/23 06:54 Room Air 07/16/23 05:30 07/16/23 05:00 07/16/23 04:30 07/16/23 04:24 07/16/23 03:23 07/16/23 03:24 Room Air 07/16/23 03:23 Room Air PG Care Time/CCT Total # of Minutes Spent Total Time Spent with Patient: Total time spent is greater than 50% in coordination of care (as documented) at patient's floor/unit and/or counseling patient: Coding Level of Care Code 58264 INT INP/OBS CARE 2/55MIN Diagnoses Parkinsonism G20 Dementia F03.90 Peripheral neuropathy G62.9
--- NOTE | 2023-07-16 15:02 | Communication Note ---
Date of Service: July 16, 2023 Patient was seen and examined at bedside. 78-year-old male with PMH of HTN, HLD, PVD, TIA, mild aortic stenosis, Parkinson's disease, CKD [baseline creatinine around 2], mood disorder, Crohn's disease, Ileal cancer status post surgery, GERD, prostate cancer status post surgery, left renal mass possible malignancy, chronic anemia, ongoing tobacco abuse presented to the ED 07/16 complaining of increased confusion/not talking a lot /not eating as much. 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 He was also trialed on carbidopa/levodopa by neurology as an outpatient for parkinsonism which patient was unable to comply. He is being managed for the following: Hypertensive urgency: At presentation - BP 189/114, EKG with sinus rhythm with premature atrial complexes, echo with EF of 60 to 65%/mild concentric LVH / LV wall motion normal / LV systolic function normal /grade 1 diastolic dysfunction. Concern for compliance. We will continue home medication - titrate if still not controlled with resuming home meds, add as needed blood pressure medications, continue to monitor. 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 Neurology has evaluated, appreciate recommendation - decrease gabapentin. PT/OT. Admitting CT head with no acute findings. Delirium precaution. Patient was alert and oriented x2 at bedside exam today. Home neuropsychotropic meds on hold as able given confusion. Likely demand ischemia: Troponin elevated/flat trended, EKG with no acute ST or T changes. Patient denies chest pain.. Echo as above. Worsening functional debility, fall: Patient reports he tripped and denies hitting head. Pelvic x-ray/CT head/CXR/cervical spine CT with no acute fracture. PT/OT. ortho vitals. Hypokalemia: secondary to decreased p.o. intake. Monitor and replete. Other chronic medical conditions: Continue with/resume home meds as and when able hyperlipidemia, statin noncompliant as per hx TIA/PVD mild aortic stenosis from TTE 2019 CRI, creatinine close to baseline mood disorder hx Crohn's disease, stable off medications as per ileal cancer status post surgery hx GERD prostate cancer status post surgery left renal mass possible malignancy, incidental finding on outpatient imaging June 2020. Follow-up with oncology on discharge. CRI close to baseline chronic anemia, at baseline ongoing tobacco abuse: Nicotine patch as needed Disposition: PT OT eval, may need placement DVT prophylaxis. Heparin subcu DNR/dni Patient Ms. Ana Fenton, contact #[phone]. Text document was generated using [employer] voice recognition software. It may contain grammatical or spelling errors. Kindly contact undersigned for clarification of any documentation item in ques tion. Examination, patient was on room air, had rigidity and bradykinesia and slow response. Was appearing ill and frail. Resting tremors noted. For detailed information of the patient, refer to today's H&P note.
[2023-07-16] MEDS ORDERED: amLODIPine BESYLATE 5 MG TAB PO ONE (15:17)
[2023-07-16] MEDS: HEPARIN SOD 5,000 UNIT/0.5 ML VIAL SQ SCH ×2 (15:51→21:25)
[2023-07-16] MEDS: NICOTINE 14 MG/24 HR PATCH TD SCH (15:51)
--- NOTE | 2023-07-16 16:02 | Electrocardiogram Report ---
Test Reason : Blood Pressure : / mmHG Vent. Rate : 093 BPM Atrial Rate : 093 BPM P-R Int : 140 ms QRS Dur : 094 ms QT Int : 372 ms P-R-T Axes : 018 031 223 degrees QTc Int : 462 ms Sinus rhythm with Premature atrial complexes Left ventricular hypertrophy with repolarization abnormality Abnormal ECG When compared with ECG of 26-MAY-2020 13:21, T wave inversion now evident in Inferior leads Confirmed by Shaka Dale ([id number]) on 07/16/2023 4:02:41 PM Referred By: REFERRED SELF Confirmed By:Shaka Dale
[2023-07-16] MEDS ORDERED: LABETALOL HCL IV 5 MG/ML 20ML IV ONE (18:08)
[2023-07-16] MEDS ORDERED: LABETALOL HCL IV 5 MG/ML 20ML IV PRN (18:26)
[2023-07-16] MEDS ORDERED: hydrALAZINE HCL 20 MG/ML VIAL IV PRN (18:26)
[2023-07-16] MEDS ORDERED: GABAPENTIN 600 MG TAB PO SCH (21:00)
[2023-07-16] MEDS: GABAPENTIN 300 MG CAP PO SCH (21:25)
[2023-07-17] MEDS: HEPARIN SOD 5,000 UNIT/0.5 ML VIAL SQ SCH ×3 (05:36→23:09)
[2023-07-17 06:13] LABS: Basophils # (auto) 0.03 K/uL (0-0.2); Basophils % (auto) 0.4 %; Eosinophils # (auto) 0.07 K/uL (0-0.50); Hematocrit (blood only) 34.2 % (42.0-52.0); Hemoglobin 11.8 g/dl (14.0-18.0); Immature Granulocytes # (auto) 0.02 K/uL (0.01-0.20); Immature Granulocytes % (auto) 0.3 %; Lymphocytes # (auto) 0.92 K/uL (1.2-3.4); Lymphocytes % (auto) 12.9 %; Mean Corpuscular Hemoglobin 29.3 pg (25.0-34.0); Mean Corpuscular Hgb Conc 34.5 g/dL (32.0-36.0); Mean Corpuscular Volume 84.9 fL (80.0-100.0); Mean Platelet Volume 11.3 fL (9.4-12.4); Monocytes # (auto) 0.77 K/uL (0.11-0.59); Monocytes % (auto) 10.8 %; Neutrophils # (auto) 5.34 K/uL (1.40-6.50); Neutrophils % (auto) 74.6 %; Platelet Count 207 K/uL (130-400); RDW Standard Deviation 43.1 fL (36.4-46.3); Red Blood Count 4.03 M/uL (4.70-6.10); White Blood Count 7.15 K/ul (4.8-10.8)
[2023-07-17 06:30] LABS: BUN Creatinine Ratio 12.7 (10-20); Calcium 9.7 mg/dl (8.6-10.3); Creatinine Clr Calc Pharmacy 28.5 ml/min; Est GFR (African American) 42.3 ml/min; Est GFR (Non-African American) 36.5 ml/min; Magnesium 1.7 mg/dl (1.7-2.4); Potassium 3.1 mmol/L (3.5-5.1)
[2023-07-17] MEDS: amLODIPine BESYLATE 5 MG TAB PO SCH (08:06)
[2023-07-17] MEDS: ASPIRIN 81 MG ECTAB PO SCH (08:07)
[2023-07-17] MEDS: CHOLECALCIFEROL 400 UNITS 10 MCG TAB PO SCH (08:07)
[2023-07-17] MEDS: GABAPENTIN 300 MG CAP PO SCH ×2 (08:07→20:10)
[2023-07-17] MEDS: NICOTINE 14 MG/24 HR PATCH TD SCH (08:07)
[2023-07-17] MEDS: CYANOCOBALAMIN (B-12) 2,500 MCG TABLET PO SCH (08:07)
[2023-07-17] MEDS: PANTOprazole 40 MG TAB PO SCH (08:07)
[2023-07-17] MEDS ORDERED: PNEUMOCOCCAL Polysaccharide Vaccine 25mcg/0.5mL vial/Syr IM ONE (09:00)
[2023-07-17] MEDS: POTASSIUM CHLORIDE CRTAB 20 MEQ TABCR PO SCH ×2 (09:53→13:03)
[2023-07-17] MEDS: carvediloL 3.125 MG TAB PO SCH ×2 (15:21→20:10)
--- NOTE | 2023-07-17 15:55 | Hospitalist Progress Note ---
Date of Service July 17, 2023 Assessment & Plan (1) Asymptomatic hypertensive urgency: Plan 78-year-old male with PMH of HTN, HLD, PVD, TIA, mild aortic stenosis, Parkinson's disease, CKD [baseline creatinine around 2], mood disorder, Crohn's disease, Ileal cancer status post surgery, GERD, prostate cancer status post surgery, left renal mass possible malignancy, chronic anemia, ongoing tobacco abuse presented to the ED 07/16 complaining of increased confusion/not talking a lot /not eating as much. 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 He was also trialed on carbidopa/levodopa by neurology as an outpatient for parkinsonism which patient was unable to comply. He is being managed for the following: Hypertensive urgency:At presentation - BP 189/114, EKG with sinus rhythm with premature atrial complexes, echo with EF of 60 to 65%/mild concentric LVH / LV wall motion normal / LV systolic function normal /grade 1 diastolic dysfunction. Concern for compliance. We will continue home medication - titrate if still not controlled with resuming home meds, add as needed blood pressure medications, continue to monitor. Blood pressure has been better. 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 Neurology has evaluated, appreciate recommendation - decrease gabapentin. PT/OT. Admitting CT head with no acute findings. Delirium precaution. Home neuropsychotropic meds on hold as able given confusion. Likely demand ischemia:Troponin elevated/flat trended, EKG with no acute ST or T changes. Patient denies chest pain.. Echo as above. Worsening functional debility, fall:Patient reports he tripped and denies hitting head. Pelvic x-ray/CT head/CXR/cervical spine CT with no acute fracture. PT/OT. ortho vitals. Hypokalemia:secondary to decreased p.o. intake. Monitor and replete. Other chronic medical conditions:Continue with/resume home meds as and when able hyperlipidemia, statin noncompliant as per hx TIA/PVD mild aortic stenosis from TTE 2019 CRI, creatinine close to baseline mood disorder hx Crohn's disease, stable off medications as per ileal cancer status post surgery hx GERD prostate cancer status post surgery left renal mass possible malignancy, incidental finding on outpatient imaging June 2020.Follow-up with oncology on discharge. CRI close to baseline chronic anemia, at baseline ongoing tobacco abuse: Nicotine patch as needed Disposition: PT OT eval, may need placement. Can DC to placement as blood pressure has been better. DVT prophylaxis. Heparin subcu DNR/dni Patient Ms. Ana Fenton, contact #[phone]. Text document was generated using [employer] voice recognition software. It may contain grammatical or spelling errors. Kindly contact undersigned for clarification of any documentation item in question. Admission and Anticipated Discharge Date Admission Date: July 16, 2023 Subjective Patient seen and examined at bedside as a follow-up of hypertensive urgency, functional debility, fall, metabolic encephalopathy. Patient was lying in bed, on room air, NAD, alert and awake, slow to response, denies headache or fever or chest pain. Per RN, patient is eating okay and no new acute events overnight. Physical Exam Physical Exam: GENERAL: Alert and awake, apathetic, unkempt. NAD, on RA. [place]. Appears weak/ill/frail. HEENT: No pallor, no icterus. Pupils equal, round and reactive to light. Oral mucosa moist. NECK: No JVD, no neck masses. HEART: S1 and S2 heard. Regular rate and rhythm. No murmur, no gallop. RESPIRATORY SYSTEM: Normal AP diameter. No accessory muscle use. No wheezing, no crackles. ABDOMEN: Soft, bowel sounds present, nontender, no distention. CENTRAL NERVOUS SYSTEM: No facial droop. Speech is clear. Obeys simple commands. Moves extremities. EXTREMITIES: No edema, no erythema seen. Results & Data Results & Data Vital Signs (Past 12 Hours) Vital Signs Temp Pulse Pulse Pulse Resp BP BP 07/17/23 15:05 36.7 C 67 18 134/82 07/17/23 11:46 36.4 C L 62 18 123/68 07/17/23 08:23 07/17/23 07:50 36.5 C 58 L 18 158/99 H 07/17/23 07:31 69 07/17/23 04:07 36.9 C 62 16 172/95 H Pulse Ox O2 Del Method 07/17/23 15:05 98 Room Air 07/17/23 11:46 96 Room Air 07/17/23 08:23 Room Air 07/17/23 07:50 96 Room Air 07/17/23 07:31 07/17/23 04:07 95 Room Air
[2023-07-18] MEDS: HEPARIN SOD 5,000 UNIT/0.5 ML VIAL SQ SCH (06:01)
[2023-07-18 08:34] LABS: Hematocrit (blood only) 31.3 % (42.0-52.0); Hemoglobin 10.8 g/dl (14.0-18.0); Mean Corpuscular Hemoglobin 29.8 pg (25.0-34.0); Mean Corpuscular Hgb Conc 34.5 g/dL (32.0-36.0); Mean Corpuscular Volume 86.2 fL (80.0-100.0); Mean Platelet Volume 12.2 fL (9.4-12.4); Platelet Count 186 K/uL (130-400); RDW Coefficient of Variation 14.7 % (11.5-14.5); RDW Standard Deviation 45.3 fL (36.4-46.3); Red Blood Count 3.63 M/uL (4.70-6.10); White Blood Count 6.28 K/ul (4.8-10.8)
[2023-07-18] MEDS: NICOTINE 14 MG/24 HR PATCH TD SCH (08:47)
[2023-07-18] MEDS: carvediloL 3.125 MG TAB PO SCH (08:47)
[2023-07-18] MEDS: CHOLECALCIFEROL 400 UNITS 10 MCG TAB PO SCH (08:48)
[2023-07-18] MEDS: PANTOprazole 40 MG TAB PO SCH (08:48)
[2023-07-18] MEDS: amLODIPine BESYLATE 5 MG TAB PO SCH (08:48)
[2023-07-18] MEDS: ASPIRIN 81 MG ECTAB PO SCH (08:48)
[2023-07-18] MEDS: CYANOCOBALAMIN (B-12) 2,500 MCG TABLET PO SCH (08:48)
[2023-07-18] MEDS: GABAPENTIN 300 MG CAP PO SCH (08:48)
[2023-07-18 08:53] LABS: BUN Creatinine Ratio 12.3 (10-20); Calcium 9.7 mg/dl (8.6-10.3); Creatinine Clr Calc Pharmacy 23.9 ml/min; Est GFR (African American) 34.6 ml/min; Est GFR (Non-African American) 29.9 ml/min; Magnesium 1.6 mg/dl (1.7-2.4); Phosphorus 1.7 mg/dl (2.5-4.9); Potassium 4.4 mmol/L (3.5-5.1)
[2023-07-18] MEDS ORDERED: MAGNESIUM SULFATE / D5W 1 GM/100 ML BAG IV ONE (12:00)
[2023-07-18] MEDS ORDERED: MAGNESIUM OXIDE 400 MG TAB PO SCH (12:00)
--- NOTE | 2023-07-18 12:13 | Discharge Summary ---
Date of Service July 18, 2023 Admission HPI Per Admitting Provider History obtained from patient, family, and records. Limited history from patient secondary to confusion. Medical history significant for hypertension, hyperlipidemia, PVD, TIA, mild aortic stenosis, Parkinson's disease, CRI (baseline creatinine 2 ), mood disorder, Crohn's disease, ileal cancer status post surgery, GERD, prostate cancer status post surgery, left renal mass possible malignancy, chronic anemia (baseline hemoglobin of 12), ongoing tobacco abuse. Last 2019 for strokelike symptoms attributed to UTI. Patient seen by [facility]rology on video appointment last January 2023 for tremors. Consideration for parkinsonism. Carbidopa/levodopa trial recommended. Patient unable to comply with medication recommendation. Patient presented with ambulatory dysfunction, depression, amotivation symptoms on last PCP visit 3 months ago. Progressive decline over the last few months as per . Increased confusion, not talking a lot, not eating as much. Patient does not want to go to the doctor's office or rehab. Patient medical alert device activated last night. Patient's checked on patient and found him on the floor. Patient more confused than usual as per . Patient had trouble getting up. Not sure how he fell down or if he passed out. Denies chest pain, SOB, abdominal pain, headache. No witnessed seizures or incontinence. Patient brought to the ER for evaluation. 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 Admission Exam Per Admitting Provider GENERAL: Apathetic, underweight, unkempt, no respiratory distress SKIN: Pallor, warm HEENT: Pale palpebral conjunctivae, no ptosis, dry buccal mucosa NECK : Supple, no tenderness CHEST : CTA, no tenderness HEART : Tachycardic, systolic murmur ABDOMEN: No distention, nontender EXTREMITIES : Minimal LE swelling, no LE tenderness, no other conspicuous deformities noted NEUROLOGIC : Coherent, no facial asymmetry, slightly hard of hearing, gait and stance not assessed Principal Diagnosis Hypertensive urgency Worsening functional debility, fall 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 NAD, on RA. [place]. HEENT: No pallor, no icterus. Pupils equal, round and reactive to light. Oral mucosa moist. NECK: No JVD, no neck masses. HEART: S1 and S2 heard. Regular rate and rhythm. No murmur, no gallop. RESPIRATORY SYSTEM: Normal AP diameter. No accessory muscle use. No wheezing, no crackles. ABDOMEN: Soft, bowel sounds present, nontender, no distention. CENTRAL NERVOUS SYSTEM: No facial droop. Speech is clear. Obeys simple commands. Moves extremities. EXTREMITIES: No edema, no erythema seen. Discharge Data Allergies Allergy/AdvReac Type Severity Reaction Status Date / Time Sulfa (Sulfonamide Allergy Intermediate HIVES Verified 07/16/23 10:04 Antibiotics) Consultations 07/16/23 07:44 Consult Neurology Routine Ordered Studies 07/16/23 03:38 CT cervical spine wo con Stat CT head/brain wo con Stat Hospital Course (1) Asymptomatic hypertensive urgency: Plan 78-year-old male with PMH of HTN, HLD, PVD, TIA, mild aortic stenosis, Parkinson's disease, CKD [baseline creatinine around 2], mood disorder, Crohn's disease, Ileal cancer status post surgery, GERD, prostate cancer status post surgery, left renal mass possible malignancy, chronic anemia, ongoing tobacco abuse presented to the ED 07/16 complaining of increased confusion/not talking a lot /not eating as much. 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 He was also trialed on carbidopa/levodopa by neurology as an outpatient for parkinsonism which patient was unable to comply. He was managed for the following: Hypertensive urgency:At presentation - BP 189/114, EKG with sinus rhythm with premature atrial complexes, echo with EF of 60 to 65%/mild concentric LVH / LV wall motion normal / LV systolic function normal /grade 1 diastolic dysfunction. Concern for compliance. Continue home Coreg, amlodipine has been added. Measure blood pressure twice a day and maintain a log to take to your PCP office during your next visit. 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 Neurology has evaluated, appreciate recommendation - decreased gabapentin. PT/OT. Admitting CT head with no acute findings. Delirium precaution. Patient appears to be improving towards his baseline. Likely demand ischemia:Troponin elevated/flat trended, EKG with no acute ST or T changes. Patient denies chest pain.. Echo as above. Worsening functional debility, fall:Patient reports he tripped and denies hitting head. Pelvic x-ray/CT head/CXR/cervical spine CT with no acute fracture. PT evaluated, recommend 24/7 supervision or rehab. Family would like to take him home with close supervision. Hypokalemia:secondary to decreased p.o. intake. Monitor and replete. Other chronic medical conditions:Continue with/resume home meds as and when able hyperlipidemia, statin noncompliant as per hx TIA/PVD mild aortic stenosis from TTE 2019 CRI, creatinine close to baseline mood disorder hx Crohn's disease, stable off medications as per ileal cancer status post surgery hx GERD prostate cancer status post surgery left renal mass possible malignancy, incidental finding on outpatient imaging June 2020.Follow-up with oncology on discharge. CRI close to baseline chronic anemia, at baseline ongoing tobacco abuse: Nicotine patch as needed Disposition: PT OT eval, may need placement. Can DC to placement as blood pressure has been better. DVT prophylaxis. Heparin subcu DNR/dni Patient Ms. Ana Fenton, contact #[phone]. Text document was generated using [employer] voice recognition software. It may contain grammatical or spelling errors. Kindly contact undersigned for clarification of any documentation item in question. Patient is being discharged to home with 24/7 supervision with family support with following instruction at the point of discharge: Follow-up with your primary care physician within a week time and likely you will need labs CBC/CMP/magnesium/phosphorus. Maintain compliance with your blood pressure medication. Continue your home Coreg. Amlodipine has been added. Measure blood pressure 2 times a day, maintain a log to take to your primary care physician for further evaluation/dose adjustment of your blood pressure medications. Your gabapentin dose has been reduced to 300 mg twice a day. Neurology evaluated you, recommend following up with neurology in 1 to 2 months time upon discharge. Recommend smoking cessation. Nicotine patch has been ordered. Follow up with oncology as Outpatient for left renal mass possible malignancy, incidental finding on outpatient imaging June 2020 Maintain fall precaution and ongoing physical therapy at home. Please make sure that you are able to get your medications today by calling your pharmacy before you leave the hospital so that your treatment continuity is not broken. Home Health Attestation I certify that this patient is under my care and that I, or a physicians assistant men's soccer coach working with me, had a face to-face encounter that meets the home health [id number] encounter requirements with this patient. The encounter with the patient was in whole, or in part, for the following medical condition, which is the primary reason for home health care (list medical condition): I certify that, based on my findings, the following services are medically necessary home health services: My clinical findings support the need for the above services because: Further, I certify that my clinical findings support that this patient is homebound (i.e. absences from home require considerable and taxing effort and are for medical reasons or judaism services or infrequently or of short duration when for other reasons) because: Certification for Home Health Services: Based on the above findings, I certify that this patient is confined to the home and needs intermittent custodial care, physical therapy and/or speech therapy or continues to need occupational therapy. The patient is under my care, and I have initiated the establishment of the plan of care. This patient will be followed by a physician who will periodically review the plan of care. 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 with superimposed mild delirium Condition on Discharge: Good Activity: Resume your previous activity Non-emergency contact: Primary Care Provider Call non-emergency contact if: you have any medication questions, your symptoms worsen and your temperature is above 101 Follow-up/Referrals: Carson Sol MD [Primary Care Provider] - (Date & Time 07/24/2023 10:00 AM Provider Lan Sanford MD [facility] ) Diet: Heart Healthy Addtl Attending Provider Instructions: Follow-up with your primary care physician within a week time and likely you will need labs CBC/CMP/magnesium/phosphorus. Maintain compliance with your blood pressure medication. Continue your home Coreg. Amlodipine has been added. Measure blood pressure 2 times a day, maintain a log to take to your primary care physician for further evaluation/dose adjustment of your blood pressure medications. Your gabapentin dose has been reduced to 300 mg twice a day. Neurology evaluated you, recommend following up with neurology in 1 to 2 months time upon discharge. Recommend smoking cessation. Nicotine patch has been ordered. Follow up with oncology as Outpatient for left renal mass possible malignancy, incidental finding on outpatient imaging June 2020 Maintain fall precaution and ongoing physical therapy at home. Please make sure that you are able to get your medications today by calling your pharmacy before you leave the hospital so that your treatment continuity is not broken. Pending Studies at Discharge: No Stand-Alone Forms: My [facility], Smoking Cessation Medications and DC Order Prescriptions: New nicotine 7 mg/24 hr Patch 24 Hour 14 mg transdermal QAM Qty: 28 0RF amlodipine [Norvasc] 5 mg Tablet 5 mg PO QAM Qty: 30 0RF Phospha 250 Neutral 250 mg Tablet 1 tab PO QID 7 Days Qty: 28 0RF magnesium oxide 400 mg (241.3 mg magnesium) Tablet 400 mg PO BID 7 Days Qty: 14 0RF gabapentin 300 mg Capsule 300 mg PO BID Qty: 60 0RF Continued carvedilol 3.125 mg tablet 3.125 mg PO BID cholecalciferol (vitamin D3) 10 mcg (400 unit) Capsule 800 unit PO DAILY cyanocobalamin (vitamin B-12) 5,000 mcg Capsule 5,000 mcg PO DAILY aspirin 81 mg Tablet,Delayed Release (Dr/Ec) 81 mg PO QAM Qty: 100 0RF trazodone 100 mg Tablet 50 mg PO HS Qty: 30 0RF omeprazole 20 mg Capsule,Delayed Release(Dr/Ec) 20 mg PO DAILY fluoxetine 40 mg capsule 40 mg PO QAM Discontinued gabapentin 600 mg tablet 600 mg PO BID Rx Instructions: Take with 800mg to make 1400mg total dose. Discharge Orders: Discharge Order (Routine); Ordered 07/18/23 Ordered By: Orville Montero Admission Data Admit Date/Time: 07/17/23 15:55 Attending Provider: Orville Montero Admit Provider: Cristobal Sharpe Primary Care Provider: Carson Sol Other Providers: [place] ; Patel Huff ; Wero Fulton ; Jennifer Cadet ; Prabhu Messina ; Jennifer Nunes ; Marcus Georges ; Jimmie Cervantes ; Segun Escalona ; Juliano Montero ; Luz Marina Perez ; Alvaro Butterfield ; Israel Alberts ; Johana Hayward ; Aleksey King ; Adalberto,Kanika
[2023-07-18] MEDS ORDERED: POT PHOSPHATE MONOBASIC W/ SOD TAB PO SCH (13:00)
== END 2023-07-18 16:20 | disposition home health service (06) | DRG 304 ==
LOC: ED 03:09 → EDINP 03:09 → 2W 16:21 → 3N 07-18 04:27

== ENCOUNTER 2023-11-02 12:15 | Inpatient (IN) ==
--- OUTSIDE RECORDS SUMMARY | 2023-11-02 12:20 | External Medical Summary | Summary of Care ---
Author Name Unknown Organization [facility] Address [address] [place] [address] Phone [phone] Care Team Providers Care Bruise Trimmer Name Role Phone Carson Sol MD Primary Care Provider [phone] Reason for Visit * Reason Onset Date Comments Medication Refill 08/13/2023 Encounter Details Date Type Department Care Team Description 08/13/2023 Refill [facility] [address] [place] [place] [address] Carson Sol MD [address] [place] [address] Allergies Active Allergy Reactions Severity Noted Date Comments Bee Stings 06/21/1998 anaphylaxis Sulfa Antibiotics 04/07/1998 hives documented as of this encounter (statuses as of 08/13/2023) Medications Medication Sig Dispensed Refills Start Date End Date Status CLOBETASOL PROPIONATE 0.05 % EX OINTIndications:D ermatitis Apply to affected area twice daily as needed for flares 60 g 1 03/18/2012 Active VITAMIN B-12 [address] under the tongue . 0 Active cholecalciferol (VITAMIN D3) 400 UNIT TABS Take 2 Tablets by mouth in the morning. 0 Active Aspirin 81 MG Oral Tablet Chewable Take 1 Tablet by mouth daily. with food. 100 Tablet 5 11/16/2021 Active Additional Information Patient taking differently:81 mg Oral Daily(AM), with food.,Indications: takes at bedtime, Reported on 01/18/2023 FLUoxetine HCl 40 MG Oral Capsule (PROzac) Take 1 Capsule by mouth in the morning. 90 Capsule 3 02/26/2023 Active traZODone HCl 150 MG Oral Tablet (Desyrel) TAKE ONE TABLET BY MOUTH EVERY DAY AT BEDTIME 90 Tablet 2 03/01/2023 02/29/2024 Active Additional Information Patient not taking.Reported on 07/24/2023 Chloroquine Phosphate 250 MG Oral Tablet (Aralen) Take 1 Tablet by mouth in the morning and 1 Tablet at noon and 1 Tablet in the evening and 1 Tablet before bedtime. For 7 days. 0 Active Magnesium Oxide 400 240 MG Oral Packet (Magnesium Oxide) Take 400 mg by mouth in the morning and 400 mg in the evening. For 7 days. 0 Active Gabapentin 300 MG Oral Capsule (Neurontin) Take 1 Capsule by mouth in the morning and 1 Capsule in the evening. 0 Active Carvedilol 3.125 MG Oral Tablet (Coreg)Indication s:HTN, goal below 140/90 Take 1 Tablet by mouth in the morning and 1 Tablet before bedtime. with food. 180 Tablet 3 07/22/2023 Active Carbidopa-Levodop a 25-100 MG Oral Tablet (Sinemet) Take 1 Tablet by mouth in the morning and 1 Tablet at noon and 1 Tablet before bedtime. 0 Active amLODIPine Besylate 5 MG Oral Tablet (Norvasc)Indicati ons:HTN, goal below 140/90 Take 1 Tablet by mouth in the morning. 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 Crohn's disease of ileum, other complica tion 06/16/2017 History of cancer of ileum 06/16/2017 Left kidney mass 07/05/2015 Gastroesophageal reflux disease without esophagitis 04/28/2010 Sensorineural hearing loss 04/28/2010 HTN, goal below 130/80 documented as of this encounter (statuses as of 08/13/2023) Resolved Problems Problem Noted Date Resolved Date Transient cerebral ischemia 01/30/202307/02 Overview: Possible as per 05/27/20 scanned Neuro consult. Tremor 01/30/2023 01/31/2023 Hypertensive kidney disease with stage 3a chronic kidney disease 04/11/2021 02/26/2023 Overview: Per CKD protocol Drug-induced polyneuropathy 03/09/202101/02 Unspecified mood (affective) disorder 03/09/2021 07/24/2023 Hypertensive kidney disease, stage III 04/13/2021 Overview: Per CKD protocol Stage 3a chronic kidney disease 10/10/2020 02/26/2023 Overview: Per CKD protocol - Per CKD protocol Kidney disease, chronic, stage III (GFR 30-59 ml /min) 06/13/2020 10/13/2020 Overview: Per CKD protocol Major depressive disorder wi th single episode, in full remission 06/25/2019 03/09/2021 Ileal cancer 06/26/2017 06/25/2019 Urge incontinence 02/26/2017 10/11/2020 Malignant neoplasm of cecum 10/10/201006/01 Neoplasm of intra-abdominal lymph nodes 10/10/20 10 10/10/2018 Malignant neoplasm of small intestine 09/28/2010 06/16/2017 Diverticulosis of colon 09/01/2010 10/10/20 18 ESOPHAG DIVERTICULUM 04/28/2010 06/25/2019 Impacted cerumen 04/28/2010 06/16/2017 Chronic otitis externa 04/28/2010 7 ADVANCE DIRECTIVE INFORMATION 06/27/2009 Overview: No, Advance Directive brochure given to patient. Dysphagia 06/07/2009 06/16/2017 Overview: ICD-10 update of inactive term Encounter for screening for malignant neoplasm 0 02/03/2004 06/16/2017 Overview: ICD-10 update of inactive term Screening for prostate cancer 02/03/2004 Overview: Resolved per Screening Diagnosis Protocol #6 Hematuria 10/01/2002 06/16/2017 Overview: ICD-10 update of inactive term Umbilical hernia 10/01/2002 10/11/2020 Major depressive disorder 2018 Overview: ICD-10 update of inactive term Tobacco use disorder 01/30/2023 Iridocyclitis 10/11/2020 Malignant neoplasm of colon 06/01 documented as of this encounter (statuses as of 08/13/2023) Immunizations Name Administration Dates Next Due Covid-19, Mrna, Lnp-s, Pf, B ivalent, 30 Mcg, IM, 12 yrs and above ([employer]) 08/27/2022 Hepatitis B, 20+ yrs 06/18/2016,01/17/2016,12/16 PPD 12/21/2015,12/07/2015 Pneumococcal Conjugate Vacc, 13 Valent (Prevnar) 12/13/2016 Pneumococcal Polysaccharide PPV23 (Pneumovax) 10/11/2020,02/17/2019 Seasonal Influenza, Trivalen t, High Dose, No Preserve, IM 02/17/2019 TDAP (age 10 and older)(Boostrix) 06/16/2012 Varicella Zoster Vaccine (Adult) 05/03/2010 Zoster Vaccine Recombinant (Shingrix) 08/09/2021 ,04/14/2021 documented as of this encounter Social History Tobacco Use Types Packs/Day Years Used Date Smoking Tobacco: Every Day Cigarettes 0.8 30 Smokeless Tobacco: Never Alcohol Use Standard Drinks/Week Comments No 0 (1 standard drink = 0.6 oz pure alcohol) As of 2.17.2006, the last noted alcohol intake was 1 ounces. Sex Assigned at Date Recorded Not on file Job Start Date Occupation Industry Not on file Not on file Not on file documented as of this encounter Miscellaneous Notes * Telephone Encounter - BEL Briceno - 08/13/2023 12:41 PM EDT Pt calling to request amLODIPine Besylate 5 MG Oral Tablet (Norvasc . Informed pt that RX is available at their pharmacy. Pt verbalized understanding and stated they will check with their pharmacy regarding this medication. Thank you for your assistance Lyla Matute [employer] [facility] (Formerly [facility]) 08/13/2023,12:41 PM documented in this encounter Plan of Treatment Upcoming Encounters Date Type Specialty Care Team Description 11/21/2023 Office Visit Family Medicine Carson Sol MD [address] [facility] [place] [address] 12/03/2023 Office Visit Gastroenterology Alexander Benz MD [address] [place] [address] Health Maintenance Due Date Last Done Comments DISCUSS TOBACCO CESSATION (REFER TO SMARTSET #3223) 1943 Albumin/Creatinine Ratio 1961 Depression Screening 10/11/2021 10/11/2020 DTaP,Tdap,and Td Vaccines (2 - Td or Tdap) 06/16/2022 06/16/2012, 11/22/1999 Influenza Vaccine (FLU shot) (#1) 2023 02/17/2019 GFR 04/30/2024 04/30/2023, 03/02, 02/26/2023, Additional history exists Hepatitis B Completed 06/18/2016, 01/02, 12/16/2015 LUNG CANCER SCREENING - USE SMARTSET 57198 Completed 11/13/2018, 12/16/2015, 06/27/2015, Additional history exists Pneumococcal Vaccine: 65+ Years Completed 10/11/2020, 02/17/2019, 12/13/2016 Zoster Vaccines Completed 08/09/2021, 04/01, 05/03/2010 COVID-19 Vaccine Completed 08/27/2022, , 02/08/2021, Additional history exists GARDASIL-HPV IMMUNIZATION SERIES Aged Out No longer eligible based on patient's age to complete this topic MENINGOCOCCAL (MENACTRA/MENVEO) Aged Out No longer eligible based on patient's age to complete this topic documented as of this encounter Medical Devices Implanted Type Area Correctional Security Officer Device Identifier Shelf Expiration Date Model / Serial / Lot Lens Intraoc 20.5 - [id number] - [id number] Implanted:Qty: 1 on 04/30/2019 by Lazaro Rojas MD at OR [facility] Left: Eye [employer] 10/31/2023 [id number] / [id number] / Lens Intraoc 20.0 - [id number] - [id number] Implanted:Qty: 1 on 05/14/2019 by Lazaro Rojas MD at OR [facility] Right: Eye BAUSCH [employer] LOMB 01/01/2024 [id number] / [id number] / [id number] documented as of this encounter Advance Directives Latest Code Status on File Code Status Date Activated Date Inactivated Comments Full Code 09/11/2010 11:24 AM 09/13/2010 8:27 PM Th is order reflects the patients wishes and were consensually agreed upon. Question Answer Comments Discussion of Advance Directives occurred with: Patient Code Status History Code Status Date Activated Date Inactivated Comments Full Code 08/31/2010 2:52 AM 09/11/2010 11:24 AM Thi s order reflects the patients wishes and were consensually agreed upon. Care Teams Bruise Trimmer Relationship Specialty Start Date End Date Carson Sol MD [address] [place] [address] [id number] PCP - General Family Medicine 01/24/23 documented as of this encounter
--- OUTSIDE RECORDS SUMMARY | 2023-11-02 12:20 | External Medical Summary | Summary of Care ---
Author Name Unknown Organization [facility] Address [address] [place] [address] Phone [phone] Care Team Providers Care Hot Packer Name Role Phone Carson Sol MD Primary Care Provider [phone]- [phone] Reason for Visit * Reason Onset Date Comments Advice 09/19/2023 bp Miko 115/83 Encounter Details Date Type Department Care Team Description 09/19/[address] [facility] [address] [place] [address] Carson Sol MD [address] [place] [address] Advice (bp Miko 115/83) Allergies Active Allergy Reactions Severity Noted Date Comments Bee Stings 06/21/1998 anaphylaxis Sulfa Antibiotics 04/07/1998 hives documented as of this encounter (statuses as of 09/19/2023) Medications Medication Sig Dispensed Refills Start Date [...] as of this encounter (statuses as of 09/19/2023) Active Problems Problem Noted Date Parkinsonism 01/31/2023 [...] as of this encounter (statuses as of 09/19/2023) Resolved Problems Problem Noted Date Resolved Date [...] as of this encounter (statuses as of 09/19/2023) Immunizations Name Administration Dates Next Due Covid-19, Mrna, Lnp-s, Pf, B ivalent, 30 Mcg, IM, 12 yrs and above (Pfizer) 08/27/2022 Hepatitis B, 20+ yrs 06/18/2016,01/17/2016,12/16 PPD 12/21/2015,12/07/2015 Pneumococcal Conjugate Vacc, 13 Valent (Prevnar) 12/13/2016 Pneumococcal Polysaccharide PPV23 (Pneumovax) 10/11/2020,02/17/2019 Seasonal Influenza, Trivalen t, High Dose, No Preserve, IM 02/17/2019 TD - Tetanus/Diptheria (ADULT) 11/22/1999 TDAP (age 10 and older)(Boostrix) 06/16/2012 Varicella Zoster Vaccine (Adult) 05/03/2010 Zoster Vaccine Recombinant (Shingrix) 08/09/2021 ,04/14/2021 documented as of this encounter Social History Tobacco Use Types Packs/Day Years Used Date Smoking Tobacco: Every Day Cigarettes 0.8 30 Smokeless Tobacco: Never Alcohol Use Standard Drinks/Week Comments No 0 (1 standard drink = 0.6 oz pure alcohol) As of 01.18.2007, the last noted alcohol intake was 1 ounces. Sex Assigned at Date Recorded Not on file Job Start Date Occupation Industry Not on file Not on file Not on file documented as of this encounter Miscellaneous Notes * Telephone Encounter - RADHA Cordero - 09/19/2023 2:18 PM EDT FYI * Telephone Encounter - RADHA Cordero ASSIST - 09/19/2023 1:22 PM EDT Called and spoke with pt Ana to advise of previous message. Pt spouse was very upset that we did not get back to her sooner and did not want to hear what was to be said. Stated she called EMS instead and they provided her with instruction, but they did not take him to the ER. I was able to provide the advice to her and informed her that if his blood pressure is still high and he is still experiencing those symptoms an ED evaluation is recommended. Refused a nurse visit. * Telephone Encounter - Carson Sol MD - 09/19/2023 12:56 PM EDT The first message said BP 115/83 and then some were much higher (175/115). I was initially told no symptoms but the messages do say that he is shaking and dizzy and lightheaded. If his BP is >160/100 and he is having these symptoms, ED eval is fine. Can take him up. If he is feeling better and BP is improved, can offer [place] for BP check here and schedule a follow up visit here with provider. If there are concerns about prescriptions, please get details and send back. * Telephone Encounter - LENNIE Holman - 09/19/2023 11:06 AM EDT Michelle Perez, called and states that pt's BP has been running high. Talked to Dr. Sol, he states that he is going to look into pt's chart and give some advise. * Telephone Encounter - Michelle Perez LPN - 09/19/2023 10:57 AM EDT calling with concern about pt being shaky. BP 175/115 No cp, sob, numbness, vision changes or headache. He feels a little dizzy and lightheaded. She rechecked BP while on phone 149/104. inquiring if they should take pt to ER. Called office spoke with Yuko, advise by Dr Sol he will review chart and call him back. informed of message. She verbalized understanding. * Telephone Encounter - KATHY Vaughn - 09/19/2023 10:55 AM EDT Reason for patient's call: Ana Feliz is calling back, in reference to her Tray Fenton. Caller was transferred to [place] at the nurse line. * Telephone Encounter - KATHY Rascon - 09/19/2023 9:56 AM EDT Reason for patient's call: pt's calling to speak to a nurse regarding pt being shaky, blood pressure 115/83 Caller was unable to be transferred to the nurse line in the allotted time. Please return call. documented in this encounter Plan of Treatment Upcoming Encounters Date Type Specialty Care Team Description 12/03/2023 Office Visit Gastroenterology Alexander Benz MD [address] [facility] [place] [address] Health Maintenance Due Date Last Done Comments DISCUSS TOBACCO CESSATION (REFER TO SMARTSET #9665) 1945 Albumin/Creatinine Ratio 1961 Depression Screening 10/11/2021 10/11/2020 DTaP,Tdap,and Td Vaccines (2 - Td or Tdap) 06/16/2022 06/16/2012, 11/22/1999 COVID-19 Vaccine (5 - season) 2023 08/27/2022, 09/25/2021, 02/08/2021, Additional history exists Influenza Vaccine (FLU shot) (#1) 2023 02/17/2019 GFR 04/30/2024 04/30/2023, 03/02, 02/26/2023, Additional history exists Hepatitis B Completed 06/18/2016, 01/02, 12/16/2015 LUNG CANCER SCREENING - USE SMARTSET [id number] Completed 11/13/2018, 12/16/2015, 06/27/2015, Additional history exists Pneumococcal Vaccine: 65+ Years Completed 10/11/2020, 02/17/2019, 12/13/2016 Zoster Vaccines Completed 08/09/2021, 04/01, 05/03/2010 GARDASIL-HPV IMMUNIZATION SERIES Aged Out No longer eligible based on patient's age to complete this topic MENINGOCOCCAL (MENACTRA/MENVEO) Aged Out No longer eligible based on patient's age to complete this topic documented as of this encounter Medical Devices Implanted Type Area Commercial Litigation Associate Device Identifier Shelf Expiration Date Model / Serial / Lot Lens Intraoc 20.5 - [id number] - [id number] Implanted:Qty: 1 on 04/30/2019 by Lazaro Rojas MD at OR [facility] Left: Eye [employer]OM[employer] 10/31/2023 [id number] / [id number] / Lens Intraoc 20.0 - [id number] - [id number] Implanted:Qty: 1 on 05/14/2019 by Lazaro Rojas MD at OR [facility] Right: Eye BAUSCH [employer] LOMB 01/01/2024 [id number] / [id number] / [id number] documented as of this encounter Advance Directives [...] and were consensually agreed upon. Care Teams Hot Packer Relationship Specialty Start Date End Date Carson Sol MD [address] [place], [place] [id number] PCP - General Family Medicine 01/24/23 documented as of this encounter
--- OUTSIDE RECORDS SUMMARY | 2023-11-02 12:20 | External Medical Summary | Summary of Care ---
Author Name Unknown Organization [facility] Address [address] [place] [address] Phone [phone] Care Team Providers Care Fusing Line Inspector Name Role Phone Carson Sol MD Primary Care Provider +1- [phone] Encounter Details Date Type Department Care Team Description 07/26/2023 Home Visit Care Coordination [address], [place] [id number] Yelitza Lion, Community [facility] Back Tender Fourdrinier [address], [place] [id number] Allergies Active Allergy Reactions Severity Noted Date Comments Bee Stings 06/21/1998 anaphylaxis Sulfa Antibiotics 04/07/1998 hives documented as of this encounter (statuses as of 07/26/2023) Medications Medication Sig Dispensed Refills Start Date [...] as of this encounter (statuses as of 07/26/2023) Active Problems Problem Noted Date Parkinsonism 01/31/2023 [...] as of this encounter (statuses as of 07/26/2023) Resolved Problems Problem Noted Date Resolved Date [...] as of this encounter (statuses as of 07/26/2023) Immunizations Name Administration Dates Next Due Covid-19, [...] on file documented as of this encounter Last Filed Vital Signs Vital Sign Reading Time Taken Comments Blood Pressure 160/70 07/26/2023 10:21 AM EDT Pulse 75 07/26/2023 10:21 AM EDT Temperature 36.8 C (98.2 F) 07/26/2023 10:21 AM E DT Respiratory Rate 16 07/26/2023 10:21 AM EDT Oxygen Saturation 95% 07/26/2023 10:21 AM EDT Inhaled Oxygen Concentration - - Weight - - Height - - Body Mass Index - - documented in this encounter Progress Notes * Yelitza Lion - 07/26/2023 10:05 AM EDT Community Health Back Tender Fourdrinier Visit Date: 07/26/2023 Time: 10:07 AM Name: Tray Fenton : 1945 Referral Source: manager supply chain Source of Information: Patient Spoken language: Nigerian Patient can read in Nigerian: Yes. Grove Worker needed: No. COVID-19 screening completed: Yes Vitals: Vital signs completed: Yes, vital signs within normal range. BP 160/70 (BP Site: Right Arm, BP Position: Sitting, BP Cuff Size: Regular) | Pulse 75 | Temp 36.8 C (98.2 F) (Infrared ) | Resp 16 | SpO2 95% Condition Changes: Changes in health or social status since last visit: patient reported changes at this time The patient has new concerns since last visit: No Progress towards goals since last visit: See above Medications: Medication review completed? No, Does the patient have barriers to medication adherence? No. Patient reports difficulty paying for medications or might in the future: No. Telehealth: This is a telehealth visit: No. Symptoms Surveys and Evaluations: MAHC10 completed this visit: Yes. Score is 4 or more? Yes, notified Provider/Jersey Knitter Last flowsheet values for MAHC10: Age 65+: 1 (07/26/2023 10:00 AM) Diagnosis (3 or more co-existing): 1 (07/26/2023 10:00 AM) Prior history of falls within 3 months: 1 (07/26/2023 10:00 AM) Incontinence: 1 (07/26/2023 10:00 AM) Visual impairment: 0 (07/26/2023 10:00 AM) Impaired functional mobility: 1 (07/26/2023 10:00 AM) Environmental hazards: 1 (07/26/2023 10:00 AM) Poly Pharmacy (4 or more prescriptions - any type): 1 (07/26/2023 10:00 AM) Pain affecting level of function: 0 (07/26/2023 10:00 AM) Cognitive impairment: 1 (07/26/2023 10:00 AM) Score - a score of 4 or more is considered at risk for fallin (07/26/2023 10:00 AM) Home Safety Does member identify any safety issues related to entering or exiting their home? Yes Does the patient need a wheelchair ramp to access the home? No Snow/ice removal assistance available? Yes Is there adequate lighting? Yes Are there railings on stairs? Yes Do sidewalks appear to be in good repair? Yes Does member identify any safety issues related to the interior of their home? No If durable medical equipment is used, halls and doorways easy to navigate? Yes Are there trip hazards in the home? Yes Are there working smoke detectors/CO2 detectors? No Is a health condition present or an air quality concern that an air conditioner or other cooling device will help? No Do stairs in the home have railings? Yes Is there a medical alert or phone near patient? Yes Are walkways clear and well lit? Yes Does member identify any safety issues related to utilizing or accessing the bathroom in their home? Yes Does bathroom have grab bars needed? Yes The patient reports needing help getting on and off the toilet? Yes Does the patient report needing help bathing? Yes Are there any other identified issues/needs? Yes. If yes specify: have a raised toilet seat howeverpatient does not like it, would like a toilet seat with arm rest to go over the toilet seat Social Determinants of Health: Safety: Patient reports feeling unsafe in their home: No. Housing: Patient reports they are at risk of becoming homeless: No. Home/Living situation: Patient lives alone: No, Bathroom is located same level Bedroom is located same level Patient has to go up and down steps: No. Patient receives help from family/friends/neighbors/community agencies etc.: No. DME: DME used: Walker, Cane, and Shower chair Patient has concerns related to DME: No. Financial: Patient reports experiencing a financial hardship: No. Employment: Patient is unemployed or without regular income: No. Utilities: Patient reports difficulty paying heating, water, or electric bill: No. Transportation: Patient drives: No. Does anyone drive patient to appointments and shopping? Yes. Patient receives community or public transportation assistance: No. Patient reports trouble getting a ride to medical visits or work: Never True. Clothing: Patient reports being unable to get clothing when it was really needed: No. Food insecurity: Patient has concerns surrounding meals/food: No. Within the past 12 months patient worried food would run out before having money to buy more: Never True. Within the past 12 months the food patient bought did not last and did not have money to get more: Never True Food is needed for this week: No. Caregiver/Childcare: Patient feels overwhelmed with taking care of a child, family member or friend: No. If caregiver is present, patient reports adequate support: Yes. Connections: How often do you feel lonely or isolated from those around you? Never. Plan: Reinforced care plan established by care team Reinforced patient's three red flags by the care team 1: increased SOB, cough, Red Flag 2: fever, chills, or Red Flag 3: BP 160-90 or higher, headache, weakness, increased confusion Follow Up: Patient encouraged to call the intake phone number for all urgent but not emergent issues. Scheduled to follow up with patient in as per scheduled Yelitza Lion Community [facility] Back Tender Fourdrinier 07/26/2023 10:07 AM documented in this encounter Plan of Treatment Upcoming Encounters Date Type Specialty Care Team Description 11/21/2023 [facility] Visit [facility] [address] [facility] [id number] 12/03/2023 Office Visit Gastroenterology Alexander Benz MD [address] [place] [address] Health Maintenance Due Date Last Done Comments DISCUSS TOBACCO CESSATION (REFER TO SMARTSET #7304) 1945 Albumin/Creatinine Ratio 1961 Depression Screening, Annual for Pts 12 and Over 10/11/2021 10/11/2020 DTaP,Tdap,and Td Vaccines (2 - Td or Tdap) 06/16/2022 06/16/2012, 11/22/1999 Influenza Vaccine (FLU shot) (#1) 2023 02/17/2019 GFR 04/30/2024 04/30/2023, 03/02, 02/26/2023, Additional history exists Hepatitis B Completed 06/18/2016, 01/02, 12/16/2015 LUNG CANCER SCREENING - USE SMARTSET [id number] Completed 11/13/2018, 12/16/2015, 06/27/2015, Additional history exists [...] this encounter Medical Devices Implanted Type Area Petroleum Refinery Worker Device Identifier Shelf Expiration Date Model / Serial / Lot Lens Intraoc 20.5 - [id number] - [id number] Implanted:Qty: 1 on 04/30/2019 by Lazaro Rojas MD at OR [facility] Left: Eye BAUSCH & LOMB 10/31/2023 [id number] / [id number] / Lens Intraoc 20.0 - [id number] - [id number] Implanted:Qty: 1 on 05/14/2019 by Lazaro Rojas MD at OR [facility] Right: Eye BAUSCH & LOMB 01/01/2024 [id number] / [id number] / [id number] documented as of this encounter Advance Directives [...] and were consensually agreed upon. Care Teams Fusing Line Inspector Relationship Specialty Start Date End Date Carson Sol MD [address] [place] [address] PCP - General Family Medicine 01/24/23 documented as of this encounter"
--- OUTSIDE RECORDS SUMMARY | 2023-11-02 12:20 | External Medical Summary | Summary of Care ---
Author Name Unknown Organization [facility] Address [address] [place] [address] Phone [phone] Care Team Providers Care Collar Starcher Name Role Phone Carson Sol MD Primary Care Provider +1- [phone] Encounter Details Date Type Department Care Team Description 07/29/2023 Rural Service EngineerSign Language InterpreterJessica Ville [address] [place] [address] Jennifer Andersen, RN [address] [place] [address] HTN, goal below 140/90* Allergies Active Allergy Reactions Severity Noted Date Comments Bee Stings 06/21/1998 anaphylaxis Sulfa Antibiotics 04/07/1998 hives documented as of this encounter (statuses as of 08/22/2023) Medications Medication Sig Dispensed Refills Start Date [...] as of this encounter (statuses as of 08/22/2023) Active Problems Problem Noted Date Parkinsonism 01/31/2023 [...] as of this encounter (statuses as of 08/22/2023) Resolved Problems Problem Noted Date Resolved Date [...] as of this encounter (statuses as of 08/22/2023) Immunizations Name Administration Dates Next Due Covid-19, Mrna, Lnp-s, Pf, B ivalent, 30 Mcg, IM, 12 yrs and above (Tengaged) 08/27/2022 Hepatitis B, 20+ yrs 06/18/2016,01/17/2016,12/16 PPD [...] on file documented as of this encounter Progress Notes * Jennifer Andersen RN - 07/29/2023 1:25 PM EDT S: Spoke with patient's Ana O: Per Ana, patient denies SOB, cough, LE edema or angina Has a fair appetite, denies bowel/bladder complaints Checking blood pressure at home, Ana did not have the readings with her No complaints of pain, skin issues healing Patient doing "very well", says he only uses his quad cane occasionally, no report of falls No current questions/concerns A: Phone Follow Up P: -Instructed on lifestyle modifications: Weight management, DASH-low sodium eating plan, regular aerobic physical activity and moderation of alcohol consumption. Target blood pressure <130/80. Monitor BP daily, varying times, document and take to next PCP visit. Advised to call office for any change in health status or questions concerning care Encouraged patient to call correctional case manager with any questions/concerns at [phone]. Office Hours: Sat- 8-8 pm, Saturday 8-5 pm, [facility] weekend clinic hours: Saturdays 8-5, Sundays 8-5 Jennifer Andersen RN [facility] [address] [facility] [phone] documented in this encounter Plan of Treatment Upcoming Encounters Date Type Specialty Care Team Description 11/21/2023 Office Visit [facility] [address] [facility] [address] 12/03/2023 Office Visit Gastroenterology Alexander Benz MD [address] [facility] [place] [address] Health Maintenance Due Date Last Done Comments DISCUSS TOBACCO CESSATION (REFER TO SMARTSET #3412) 1945 Albumin/Creatinine Ratio 1961 Depression Screening 10/11/2021 10/11/2020 DTaP,Tdap,and Td Vaccines (2 - Td or Tdap) 06/16/2022 06/16/2012, 11/22/1999 Influenza Vaccine (FLU shot) (#1) 2023 02/17/2019 GFR 04/30/2024 04/30/2023, 03/02, 02/26/2023, Additional history exists Hepatitis B Completed 06/18/2016, 01/02, 12/16/2015 LUNG CANCER SCREENING - USE SMARTSET [id number] Completed 11/13/2018, 12/16/2015, 06/27/2015, Additional history exists [...] this encounter Medical Devices Implanted Type Area Supervisor Filter Assembly Device Identifier Shelf Expiration Date Model / Serial / Lot Lens Intraoc 20.5 - [id number] - [id number] Implanted:Qty: 1 on 04/30/2019 by Lazaro Rojas MD at OR [facility] Left: Eye BAUSCH & LOMB 10/31/2023 [id number] / [id number] / Lens Intraoc 20.0 - [id number] - [id number] Implanted:Qty: 1 on 05/14/2019 by Lazaro Rojas MD at OR [facility] Right: Eye BAUSCH & LOMB 01/01/2024 [id number] / [id number] / [id number] documented as of this encounter Visit Diagnoses Diagnosis HTN, goal below 140/90- Primary Unspecified essential hypertension documented in this encounter Advance Directives Latest Code Status [...] and were consensually agreed upon. Care Teams Collar Starcher Relationship Specialty Start Date End Date Carson Sol MD [address] [facility] [address] PCP - General Family Medicine 01/24/23 documented as of this encounter
--- OUTSIDE RECORDS SUMMARY | 2023-11-02 12:20 | External Medical Summary ---
Author Name UNSPECIFIED Address Unknown Organization [facility] History of Encounters Reason for Assessment: Discharge from [facility] Inpatient Facility where the patient been admitted: No inpatient facility admission Discharge Disposition: Patient remained in the community (without formal assistive services) Functional Assessment Bowel Incontinence Frequency: Very rarel y or never has bowel incontinence Cognitive Functioning: Requires promptin g (cueing, repetition, reminders) only under stressful or unfamiliar conditions. When Confused (Reported or Observed): In new or complex situations only When Anxious (Reported or Observed): Les s often than daily Cognitive and Behavioral and Psychiatric Symptoms: None Current Ability: Bathing: able to partic ipate in bathing self in shower or tub, but requires presence of another person throughout the bath for assistance or supervision. Current Ability: Ambulation: Requires us e of a two-handed device (e.g., walker or crutches) to walk alone on a level surface and/or requires human supervision or assistance to negotiate stairs or steps or uneven surfaces. Current: Management Of Oral Medications: Able to take medication(s) at the correct times if given reminders by another person at the appropriate times
--- OUTSIDE RECORDS SUMMARY | 2023-11-02 12:20 | External Medical Summary | Summary of Care ---
Author Name Unknown Organization [facility] Address [address] [facility] [place] [address] Phone [phone] Care Team Providers Care Piano Maker Name Role Phone Carson Sol MD Primary Care Provider +1- [phone] Encounter Details Date Type Department Care Team (Late st Contact Info) Description 07/22/2023 Population Health External Data Unspecified Department Allergies Active Allergy Reactions Criticality Noted Date Comments Bee Stings 06/21/1998 anaphylaxis Sulfa Antibiotics 04/07/1998 hives documented as of this encounter (statuses as of 10/14/2023) Medications Medication Sig Dispensed Refills Start Date [...] with food. 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 Crohn's disease of ileum, other complication History of cancer of ileum 06/16/2017 Left kidney mass 07/05/2015 Gastroesophageal reflux disease without esophagi tis 04/28/2010 Sensorineural hearing loss 04/28/2010 HTN, goal below 130/80 documented as of this encounter (statuses as of 10/14/2023) Resolved Problems Problem Noted Date Diagnosed Date Resolved Date Transient cerebral ischemia 01/30/2023 07/19/2023 Overview: Possible as per 05/27/20 scanned Neuro consult. Tremor 01/30/2023 01/31/2023 Hypertensive kidney disease with stage 3a chronic kidney disease 04/11/2021 02/26/2023 Overview: Per CKD protocol Drug-induced polyneuropathy 03/09/2021 01/18/2023 Unspecified mood (affective) disorder 03/09/2021 07/24/2023 Hypertensive kidney disease, stage III 03/09/2021 04/13/2021 Overview: Per CKD protocol Stage 3a chronic kidney disease 10/10/2020 02/26/2023 Overview: Per CKD protocol - Per CKD protocol Kidney disease, chronic, sta ge III (GFR 30-59 ml/min) 06/13/2020 10/13/2020 Overview: Per CKD protocol Major depressive disorder wi th single episode, in full remission 06/25/2019 03/09/2021 Ileal cancer 06/26/2017 06/25/2019 Urge incontinence 02/26/2017 10/11/2020 Malignant neoplasm of cecum 10/10/2010 06/16/2017 Neoplasm of intra-abdominal lymph nodes 10/10/2010 10/10/2018 Malignant neoplasm of small intestine 09/28/2010 06/16/2017 Diverticulosis of colon 09/01/201008/2018 ESOPHAG DIVERTICULUM 04/28/2010 019 Impacted cerumen 04/28/2010 06/16/2017 Chronic otitis externa 04/28/201006/16 ADVANCE DIRECTIVE INFORMATION 06/27/2009 10/10/2018 Overview: No, Advance Directive brochure given to patient. Dysphagia 06/07/2009 06/16/2017 Overview: ICD-10 update of inactive term Encounter for screening for malignant neoplasm 02/03/2004 06/16/2017 Overview: ICD-10 update of inactive term Screening for prostate cancer 02/03/2004 04/14/2009 Overview: Resolved per Screening Diagnosis Protocol #6 Hematuria 10/01/2002 06/16/2017 Overview: ICD-10 update of inactive term Umbilical hernia 10/01/2002 10/11/2020 Major depressive disorder Overview: ICD-10 update of inactive term Tobacco use disorder 023 Iridocyclitis 10/11/2020 Malignant neoplasm of colon 06/16/2017 documented as of this encounter (statuses as of 10/14/2023) Immunizations Name Administration Dates Next Due Covid-19, [...] last noted alcohol intake was 1 ounces. PHQ-2 Answer Date Recorded PHQ-2 Score -1 10/11/2020 Sex and Gender Information Value Date Recorded Sex Assigned at Not on file Gender Identity Not on file Sexual Orientation Straight 06/25/2019 8: 32 AM EDT Job Start Date Occupation Industry Not on file Not on file Not on file documented as of this encounter Plan of Treatment Upcoming Encounters Date Type Department Care Team (Late st Contact Info) Description 12/03/2023 4:20 PM EST Office Visit Gastroenterology, [facility] [address] [place] [address] Alexander Benz MD [address] [place] [address] Health Maintenance Due Date Last Done Comments DISCUSS TOBACCO CESSATION (REFER TO SMARTSET #4098) 1945 Albumin/Creatinine Ratio 1961 Depression Screening 10/11/2021 10/11/2020 DTaP,Tdap,and Td Vaccines (2 - Td or Tdap) 06/16/2022 06/16/2012, 11/22/1999 COVID-19 Vaccine (5 - season) 2023 08/27/2022, 09/25/2021, 02/08/2021, Additional history exists Influenza Vaccine (FLU shot) (#1) 2023 02/17/2019 GFR 04/30/2024 04/30/2023, 03/02, 02/26/2023, Additional history exists Hepatitis B Completed 06/18/2016, 01/02, 12/16/2015 LUNG CANCER SCREENING - USE SMARTSET 53373 Completed 11/13/2018, 12/16/2015, 06/27/2015, Additional history exists Pneumococcal Vaccine: 65+ Years Completed 10/11/2020, 02/17/2019, 12/13/2016 Zoster Vaccines Completed 08/09/2021, 04/01, 05/03/2010 GARDASIL-HPV IMMUNIZATION SERIES Aged Out No longer eligible based on patient's age to complete this topic MENINGOCOCCAL (MENACTRA/MENVEO) Aged Out No longer eligible based on patient's age to complete this topic documented as of this encounter Medical Devices Implanted Type Area Dealership Manager Device Identifier Shelf Expiration Date Model / Serial / Lot Lens Intraoc 20.5 - [id number] - [id number] Implanted:Qty: 1 on 04/30/2019 by Lazaro Rojas MD at OR [facility] Left: Eye BAUSCH & LOMB 10/31/2023 [id number] / [id number] / Lens Intraoc 20.0 - [id number] - [id number] Implanted:Qty: 1 on 05/14/2019 by Lazaro Rojas MD at OR [facility] Right: Eye BAUSCH & LOMB 01/01/2024 [id number] / [id number] / [id number] documented as of this encounter Advance Directives [...] and were consensually agreed upon. Care Teams Piano Maker Relationship Specialty Start Date End Date Carson Sol MD [address] [place] [address] PCP - General Family Medicine 01/24/23 documented as of this encounter
--- OUTSIDE RECORDS SUMMARY | 2023-11-02 12:20 | External Medical Summary | Summary of Care ---
Author Name Unknown Organization [facility] Address [address] [place] [address] Phone [phone] Care Team Providers Care Auto Striper Name Role Phone Carson Sol MD Primary Care Provider +1- [phone] Reason for Visit * Reason Onset Date Comments Advice 09/19/2023 bp Miko 115/83 Encounter Details Date Type Department Care Team Description 09/19/[address] [facility] [address] [place] [address] Carson Sol MD [address] [place] [address] Advice (bp Miko 115/83) Allergies [...] EDT FYI * Telephone Encounter - RADHA oCrdero ASSIST - 09/19/2023 1:22 PM EDT Called [...] her Tray Fenton. Caller was transferred to [place] at the nurse line. * Telephone Encounter [...] Office Visit Gastroenterology Alexander Benz MD [address] [facility] [place] [address] Health Maintenance Due Date Last Done Comments DISCUSS TOBACCO CESSATION (REFER TO SMARTSET #1652) 1945 Albumin/Creatinine Ratio 1963 Depression Screening 10/11/2021 10/11/2020 DTaP,Tdap,and Td Vaccines (2 - Td or Tdap) 06/16/2022 06/16/2012, 11/22/1999 COVID-19 Vaccine (5 - season) 2023 08/27/2022, 09/25/2021, 02/08/2021, Additional history exists Influenza Vaccine (FLU shot) (#1) 2023 02/17/2019 GFR 04/30/2024 04/30/2023, 03/02, 02/26/2023, Additional history exists Hepatitis B Completed 06/18/2016, 01/02, 12/16/2015 LUNG CANCER SCREENING - USE SMARTSET 87702 Completed 11/13/2018, 12/16/2015, 06/27/2015, Additional history exists Pneumococcal Vaccine: 65+ Years Completed 10/11/2020, 02/17/2019, 12/13/2016 Zoster Vaccines Completed 08/09/2021, 04/01, 05/03/2010 GARDASIL-HPV IMMUNIZATION SERIES Aged Out No longer eligible based on patient's age to complete this topic MENINGOCOCCAL (MENACTRA/MENVEO) Aged Out No longer eligible based on patient's age to complete this topic documented as of this encounter Medical Devices Implanted Type Area Ramp Agent Device Identifier Shelf Expiration Date Model / Serial / Lot Lens Intraoc 20.5 - [id number] - [id number] Implanted:Qty: 1 on 04/30/2019 by Lazaro Rojas MD at OR [facility] Left: Eye BAUSCH & LOMB 10/31/2023 [id number] / [id number] / Lens Intraoc 20.0 - [id number] - [id number] Implanted:Qty: 1 on 05/14/2019 by Lazaro Rojas MD at OR [facility] Right: Eye BAUSCH & LOMB 01/01/2024 [id number] / [id number] / [id number] documented as of this encounter Advance Directives [...] and were consensually agreed upon. Care Teams Auto Striper Relationship Specialty Start Date End Date Carson Sol MD [address] [place], [place] [id number] PCP - General Family Medicine 01/24/23 documented as of this encounter
--- OUTSIDE RECORDS SUMMARY | 2023-11-02 12:20 | External Medical Summary | Summary of Care ---
Author Name Unknown Organization [facility] Address [address] [place] [address] Phone [phone] Care Team Providers Care Director Learning Services Name Role Phone Carson Sol MD Primary Care Provider +1- [phone] Reason for Visit * Reason Onset Date Comments Appointment 09/20/2023 Encounter Details Date Type Department Care Team Description 09/20/2023 Telephone NephrologyJayce [address] [place] [address] Myron Bailey MD [address] [facility] [place] [address] Appointment Allergies Active Allergy Reactions Severity Noted Date Comments Bee Stings 06/21/1998 anaphylaxis Sulfa Antibiotics 04/07/1998 hives documented as of this encounter (statuses as of 09/20/2023) Medications Medication Sig Dispensed Refills Start Date [...] as of this encounter (statuses as of 09/20/2023) Active Problems Problem Noted Date Parkinsonism 01/31/2023 Mixed action and resting tremor 02/01/20 Moderate episode of recurrent major depr essive [...] as of this encounter (statuses as of 09/20/2023) Resolved Problems Problem Noted Date Resolved Date [...] as of this encounter (statuses as of 09/20/2023) Immunizations Name Administration Dates Next Due Covid-19, Mrna, Lnp-s, Pf, B ivalent, 30 Mcg, IM, 12 yrs and above ([employer]) 08/27/2022 Hepatitis B, 20+ yrs 06/18/2016,01/17/2016,12/16 PPD [...] encounter Miscellaneous Notes * Telephone Encounter - KATHY Ching - 09/20/2023 10:09 AM EDT 09/20 called patient, left message. Trying to get patient scheduled for a follow-up with Dr. Bailey. Needed to be see in September 2023. Patient is on the lost to follow-up report. documented in this encounter Plan of Treatment Upcoming Encounters Date Type Specialty Care Team Description 12/03/2023 Office Visit Gastroenterology Alexander Benz MD [address] [address] Health Maintenance Due Date Last Done Comments DISCUSS TOBACCO CESSATION (REFER TO SMARTSET #5950) 1943 Albumin/Creatinine Ratio 1961 Depression Screening 10/11/2021 10/11/2020 DTaP,Tdap,and Td Vaccines (2 - Td or Tdap) 06/16/2022 06/16/2012, 11/22/1999 COVID-19 Vaccine ( season) 2023 08/27/2022, 09/25/2021, 02/08/2021, Additional history exists Influenza Vaccine (FLU shot) (#1) 2023 02/17/2019 GFR 04/30/2024 04/30/2023, 03/02, 02/26/2023, Additional history exists Hepatitis B Completed 06/18/2016, 01/02, 12/16/2015 LUNG CANCER SCREENING - USE SMARTSET 60114 Completed 11/13/2018, 12/16/2015, 06/27/2015, Additional history exists Pneumococcal Vaccine: 65+ Years Completed 10/11/2020, 02/17/2019, 12/13/2016 Zoster Vaccines Completed 08/09/2021, 04/01, 05/03/2010 GARDASIL-HPV IMMUNIZATION SERIES Aged Out No longer eligible based on patient's age to complete this topic MENINGOCOCCAL (MENACTRA/MENVEO) Aged Out No longer eligible based on patient's age to complete this topic documented as of this encounter Medical Devices Implanted Type Area Print Cutter Device Identifier Shelf Expiration Date Model / Serial / Lot Lens Intraoc 20.5 - [id number] - [id number] Implanted:Qty: 1 on 04/30/2019 by aLzaro Rojas MD at OR [facility] Left: Eye [employer] 10/31/2023 [id number] / [id number] / Lens Intraoc 20.0 - [id number] - [id number] Implanted:Qty: 1 on 05/14/2019 by Lazaro Rojas MD at OR [facility] Right: Eye [employer] 01/01/2024 [id number] / [id number] / [id number] documented as of this encounter Advance Directives [...] and were consensually agreed upon. Care Teams Director Learning Services Relationship Specialty Start Date End Date Carson Sol MD [address] [place] [address] [phone] PCP - General Family Medicine 01/24/23 documented as of this encounter
--- OUTSIDE RECORDS SUMMARY | 2023-11-02 12:20 | External Medical Summary | Summary of Care ---
Author Name Unknown Organization [facility] Address [address] [place] [address] Phone [phone] Care Team Providers Care Orientation And Mobility Instructor Name Role Phone Carson Sol MD Primary Care Provider +1- [phone] Reason for Visit * Reason Comments Hospital Follow-Up Encounter Details Date Type Department Care Team Description 07/24/2023 Office Visit [facility] [address] [place] [address] MayLan MD [address] [place] [address] HTN, goal below 140/90*; Personal history of fall; Mixed action and resting tremor; Parkinsonism, unspecified Parkinsonism type (HCC); Left kidney mass; Hospital discharge follow-up Allergies Active Allergy Reactions Severity Noted Date Comments Bee Stings 06/21/1998 anaphylaxis Sulfa Antibiotics 04/07/1998 hives documented as of this encounter (statuses as of 07/24/2023) Medications Medication Sig Dispensed Refills Start Date End Date Status CLOBETASOL PROPIONATE 0.05 % EX OINTIndications: Dermatitis Apply to affected area twice daily as [...] DAY AT BEDTIME 90 Tablet 2 03/01/2023 4 Active Additional Information Patient not taking.Reported on [...] 0 Active Carvedilol 3.125 MG Oral Tablet (Coreg)Indicatio ns:HTN, goal below 140/90 Take 1 Tablet by mouth in the morning and 1 Tablet before bedtime. with food. 180 Tablet 3 07/22/2023 Active Carbidopa-Levodo pa 25-100 MG Oral Tablet (Sinemet) Take 1 Tablet by mouth in the morning and 1 Tablet at noon and 1 Tablet before bedtime. 0 Active amLODIPine Besylate 5 MG Oral Tablet (Norvasc)Indicat ions:HTN, goal below 140/90 Take 1 Tablet by mouth in the morning. 90 Tablet 3 07/24/2023 Active amLODIPine Besylate 5 MG Oral Tablet (Norvasc) Take 1 Tablet by mouth in the morning. 0 3 Discontinue d(Refill) K Phos [place]-Sod Phos Di & [place] 155-852-130 MG Oral Tablet (K-Phos Neutral) Take 1 Tablet by mouth in the morning and 1 Tablet at noon and 1 Tablet in the evening and 1 Tablet before bedtime. 0 07/18/2023 3 Discontinue d(Medicatio n List Clean Up) documented as of this encounter (statuses as of 07/24/2023) Active Problems Problem Noted Date Parkinsonism 01/31/2023 [...] as of this encounter (statuses as of 07/24/2023) Resolved Problems Problem Noted Date Resolved Date [...] as of this encounter (statuses as of 07/24/2023) Immunizations Name Administration Dates Next Due Covid-19, Mrna, Lnp-s, Pf, B ivalent, 30 Mcg, IM, 12 yrs and above ([employer]) 08/27/2022 Hepatitis B, 20+ yrs 06/18/2016,01/17/2016,12/16 PPD [...] = 0.6 oz pure alcohol) As of 2..2006, the last noted alcohol intake was 1 ounces. Sex Assigned at Date Recorded Not on file Job Start Date Occupation Industry Not on file Not on file Not on file documented as of this encounter Last Filed Vital Signs Vital Sign Reading Time Taken Comments Blood Pressure 110/72 07/24/2023 9:56 AM EDT Pulse 72 07/24/2023 9:56 AM EDT Temperature - - Respiratory Rate 16 07/24/2023 9:56 AM EDT Oxygen Saturation - - Inhaled Oxygen Concentration - - Weight 69.9 kg (154 lb) 07/24/2023 9:56 AM EDT Height 177.8 cm (5' 10") 07/24/2023 9:56 AM EDT Body Mass Index 22.1 07/24/2023 9:56 AM EDT documented in this encounter Progress Notes * Lan Sanford MD - 07/24/2023 10:02 AM EDT Images from the original note were not included. Assessment and Plan 78-year-old male with extensive past medical history who presents for hospital follow up. He is doing significantly better post hospitalization than he was prior to hospitalization. More alert. No falls. Blood pressure in office today is under good control at 110/72. Continues on amlodipine which was added in the hospital. Check renal function today. Has made the change to gabapentin as suggestedby Neurology in the hospital. Will follow up outpatient with them in 1- 2 months. Discussed incidental left kidney mass seen on imaging in 2019. Joint decision to not pursue further workup. Continue work with home PT/OT. 1. Personal history of fall 2. HTN, goal below 140/90 - amLODIPine Besylate 5 MG Oral Tablet (Norvasc); Take 1 Tablet by mouth in the morning. Dispense: 90 Tablet; Refill: 3 - COMPREHENSIVE METABOLIC PANEL; Future 3. Mixed action and resting tremor 4. Parkinsonism, unspecified Parkinsonism type (HCC) 5. Left kidney mass 6. Hospital discharge follow-up Wrap-Up Follow up as scheduled with PCP. History of Present Illness The patient is an 78-year-old male with past medical history of Crohn's disease, hypertension, hyperlipidemia, parkinsonism, depression who presents for hospital follow-up. The patient was admitted to [facility] on 07/17/2023 and discharged on 07/18/2023. Patient presented after being found down by . His medical alert device activated and per his was on the floor with more confusion than usual. He had trouble getting up. Unclear circumstancessurrounding the fall. No witnessed seizures or incontinence. At time of admission he was noted to have hypertensive urgency. Blood pressure was 189/114. EKG was sinus rhythm. Echo with EF of 60- 65% with mild concentric left ventricular hypertrophy and grade 1 diastolic dysfunction. Neurology evaluated the patient. They decreased his gabapentin dosing recommended PT OT. The admitting CT head had no acute findings. His troponin was elevated which was thought to be as a result of demand ischemia. D ue to being found down the patient did have a pelvic x-ray, CT head, chest x- ray, cervical spine CTwith no fracture. The rest of medications were continued without change. Amlodipine was added for blood pressure control. Physical Exam Vitals: 07/24/23 0956 Pulse: 72 Resp: 16 BP: 110/72 BMI: 22.1 Physical Exam Physical Exam Vitals reviewed. Constitutional: General: He is not in acute distress. Comments: Chronically ill appearing. Cardiovascular: Rate and Rhythm: Normal rate and regular rhythm. Comments: PVCs. Pulmonary: Effort: Pulmonary effort is normal. No respiratory distress. Comments: Distant breath sounds without wheezes. Neurological: Mental Status: He is alert. documented in this encounter Nursing Notes * Ca Barbour LPN - 07/24/2023 10:03 AM EDT The patient has been properly identified by confirmation of name and date of . Chief Complaint Patient presents with Hospital Follow-Up documented in this encounter Plan of Treatment Upcoming Encounters Date Type Specialty Care Team Description 07/26/2023 Home Visit Family Medicine Yelitza Lion, [facility] [employer] Making Machine Operator [address] [place] [address] 11/21/2023 Office Visit Family Medicine Carson Sol MD [address] [place] [address] 12/03/2023 Office Visit Gastroenterology Alexander Benz MD [address] [place] [address] Scheduled Orders Name Type Priority Associated Diagnoses Orde r Schedule COMPREHENSIVE METABOLIC PANEL Lab Routine HTN, goal below 140/90 Expected: 07/24/2023 (Approximate), Expires: 07/23/2024 Health Maintenance Due Date Last Done Comments DISCUSS TOBACCO CESSATION (REFER TO SMARTSET #4243) 1945 Albumin/Creatinine Ratio 1961 Depression Screening, Annual for Pts 12 and Over 10/11/2021 10/11/2020 DTaP,Tdap,and Td Vaccines (2 - Td or Tdap) 06/16/2022 06/16/2012, 11/22/1999 Influenza Vaccine (FLU shot) (#1) 2023 02/17/2019 GFR 04/30/2024 04/30/2023, 03/02, 02/26/2023, Additional history exists Hepatitis B Completed 06/18/2016, 01/02, 12/16/2015 LUNG CANCER SCREENING - USE SMARTSET 39744 Completed 11/13/2018, 12/16/2015, 06/27/2015, Additional history exists [...] this encounter Medical Devices Implanted Type Area Powerhouse Helper Device Identifier Shelf Expiration Date Model / Serial / Lot Lens Intraoc 20.5 - [id number] - [id number] Implanted:Qty: 1 on 04/30/2019 by Lazaro Rojas MD at OR [facility] Left: Eye [employer] 10/31/2023 [id number] / [id number] / Lens Intraoc 20.0 - [id number] - [id number] Implanted:Qty: 1 on 05/14/2019 by Lazaro Rojas MD at OR [facility] Right: Eye [employer] 01/01/2024 [id number] / [id number] / [id number] documented as of this encounter Visit Diagnoses Diagnosis HTN, goal below 140/90- Primary Unspecified essential hypertension Personal history of fall Mixed action and resting tremor Abnormal involuntary movements Parkinsonism, unspecified Parkinsonism type (HCC) Left kidney mass Unspecified disorder of kidney and ureter Hospital discharge follow-up Other follow-up examination documented in this encounter Advance Directives Latest [...] and were consensually agreed upon. Care Teams Orientation And Mobility Instructor Relationship Specialty Start Date End Date Carson Sol MD [address] [place] [address] PCP - General Family Medicine 01/24/23 documented as of this encounter
--- OUTSIDE RECORDS SUMMARY | 2023-11-02 12:20 | External Medical Summary | Summary of Care ---
Author Name Unknown Organization [facility] Address [address] [place] [address] Phone [phone] Care Team Providers Care Valuation Consultant Name Role Phone Carson Sol MD Primary Care Provider +1- [phone] Encounter Details Date Type Department Care Team Description 07/29/2023 [place] [address] [place] [address] Jennifer Andersen, RN [address] [place] [address] HTN, goal below 140/90* Allergies Active Allergy Reactions Severity Noted Date Comments Bee Stings 06/21/1998 anaphylaxis Sulfa Antibiotics 04/07/1998 hives documented as of this encounter (statuses as of 07/29/2023) Medications Medication Sig Dispensed Refills Start Date [...] as of this encounter (statuses as of 07/29/2023) Active Problems Problem Noted Date Parkinsonism 01/31/2023 [...] as of this encounter (statuses as of 07/29/2023) Resolved Problems Problem Noted Date Resolved Date [...] as of this encounter (statuses as of 07/29/2023) Immunizations Name Administration Dates Next Due Covid-19, Mrna, Lnp-s, Pf, B ivalent, 30 Mcg, IM, 12 yrs and above ([employer]) 08/27/2022 Hepatitis B, 20+ yrs 06/18/2016,01/17/2016,12/16 PPD [...] questions concerning care Encouraged patient to call wrapper caser with any questions/concerns at [phone]. Office Hours: Sat- 8-8 pm, Saturday 8-5 pm, [facility] weekend clinic hours: Saturdays 8-5, Sundays 8-5 Jennifer Andersen RN [place] [id number] [facility] [address] documented in this encounter Plan of Treatment Upcoming Encounters Date Type Specialty Care Team Description 11/21/2023 Office Visit Family Medicine Carson [facility] [address] [facility] [address] 12/03/2023 Office Visit Gastroenterology Alexander Benz MD [address] [place] [address] Health Maintenance Due Date Last Done Comments DISCUSS TOBACCO CESSATION (REFER TO SMARTSET #3543) 1945 Albumin/Creatinine Ratio 1961 Depression Screening, Annual for Pts 12 and Over 10/11/2021 10/11/2020 DTaP,Tdap,and Td Vaccines (2 - Td or Tdap) 06/16/2022 06/16/2012, 11/22/1999 Influenza Vaccine (FLU shot) (#1) 2023 02/17/2019 GFR 04/30/2024 04/30/2023, 03/02, 02/26/2023, Additional history exists Hepatitis B Completed 06/18/2016, 01/02, 12/16/2015 LUNG CANCER SCREENING - USE SMARTSET 59461 Completed 11/13/2018, 12/16/2015, 06/27/2015, Additional history exists [...] this encounter Medical Devices Implanted Type Area Tax Agent Device Identifier Shelf Expiration Date Model / Serial / Lot Lens Intraoc 20.5 - [id number] - [id number] Implanted:Qty: 1 on 04/30/2019 by Lazaro Rojas MD at OR [facility] Left: Eye [employer] 10/31/2023 [id number] / [id number] / Lens [employer]oc 20.0 - [id number] - [id number] Implanted:Qty: 1 on 05/14/2019 by Lazaro Rojas MD at OR [facility] Right: Eye [employer] 01/01/2024 [id number] / [id number] / [id number] documented as of this encounter Visit Diagnoses [...] and were consensually agreed upon. Care Teams Valuation Consultant Relationship Specialty Start Date End Date Carson Sol MD [address] [place] [address] PCP - General Family Medicine 01/24/23 documented as of this encounter
--- OUTSIDE RECORDS SUMMARY | 2023-11-02 12:20 | External Medical Summary ---
Author Name UNSPECIFIED Address Unknown Organization [facility] History of Encounters Reason for Assessment: Start of care - f urther visits planned Inpatient discharge facility: Past 14 Da ys: Discharged From Short Stay Acute Hospital Most Recent Inpatient Discharge Date: Functional Assessment Patient Living Situation: Patient lives with other person(s) in the home: Around the clock When Dyspneic: When walking more th an 20 feet, climbing stairs Urinary Incontinence or Urin shane Catheter Present: Patient is incontinent Bowel Incontinence Frequency: Very rarel y or never has bowel incontinence Cognitive Functioning: Requires promptin g (cueing, repetition, reminders) only under stressful or unfamiliar conditions. When Confused (Reported or Observed): In new or complex situations only When Anxious (Reported or Observed): Sheri ly, but not constantly Cognitive and Behavioral and Psychiatric Symptoms: Impaired decision-making: failure to perform usual ADLs or IADLs, inability to appropriately stop activities, jeopardizes safety through actions Frequency of Behavior Problems: At least daily Current Ability: Bathing: Unable to use the shower or tub, but able to participate in bathing self in bed, at the sink, in bedside chair, or on commode, with the assistance or supervision of another person throughout the bath. Current Ability: Ambulation: Able to wal k only with the supervision or assistance of another person at all times. Current: Management Of Oral Medications: Unable to take medication unless administered by another person Problems Primary Home Care Diagnosis ICD Code: G2 0., Parkinson's disease Home Care Diagnosis 1: ICD Code: I12.9, Hypertensive chronic kidney disease w stg 1-4/unsp chr kdny Home Care Diagnosis 1: Severity Ratin Home Care Diagnosis 2: ICD Code: N18.9, Chronic kidney disease, unspecified Home Care Diagnosis 2: Severity Ratin Home Care Diagnosis 3: ICD Code: G62.9, Polyneuropathy, unspecified Home Care Diagnosis 3: Severity Ratin Home Care Diagnosis 4: ICD Code: I73.9, Peripheral vascular disease, unspecified Home Care Diagnosis 4: Severity Ratin Home Care Diagnosis 5: ICD Code: F32.A^^ ^ Home Care Diagnosis 5: Severity Ratin
--- OUTSIDE RECORDS SUMMARY | 2023-11-02 12:21 | External Medical Summary | Summary of Care ---
Author Name Unknown Organization [facility] Address [address] [facility] [place] [address] Phone [phone] Care Team Providers Care Pest Control Service Technician Name Role Phone Carson Sol MD Primary Care Provider +1- [phone] Reason for Visit * Reason Onset Date Comments Patient Assistance Program 07/09/2023 Porfirio kirby Encounter Details Date Type Department Care Team Description 07/09/2023 Telephone Gastroenterology, [facility] [address] [place] [id number] Alexander Benz MD [address] [place] [id number] Patient Assistance Program ([employer]) Allergies Active Allergy Reactions Severity Noted Date Comments Bee Stings 06/21/1998 anaphylaxis Sulfa Antibiotics 04/07/1998 hives documented as of this encounter (statuses as of 07/09/2023) Medications Medication Sig Dispensed Refills Start Date End Date Status CLOBETASOL PROPIONATE 0.05 % EX OINTIndications:Alfie matitis Apply to affected area twice daily as needed for flares 60 g 1 03/18/2012 Active VITAMIN B-12 [address] under the tongue . 0 Active cholecalciferol (VITAMIN D3) 400 UNIT TABS Take 2 Tablets by mouth in the morning. 0 Active omeprazole (PRILOSEC) 20 MG CPDRIndications:Gas troesophageal reflux disease, esophagitis presence not specified 1 daily 90 Cap 3 08/20/2019 Active carvedilol (COREG) 3.125 MG TabletIndications:H TN, goal below 140/90 Take 1 Tab by mouth 2 times a day. with food 180 Tab 3 08/20/2019 Active atorvaSTATin (LIPITOR) 40 MG Tablet 1 Tablet. 0 05/29/2020 Active Aspirin 81 MG Oral Tablet Chewable Take 1 Tablet by mouth daily. with food. 100 Tablet 5 11/16/2021 Active Additional Information Patient taking differently:81 mg Oral Daily(AM), with food.,Indications: takes at bedtime, Reported on 01/18/2023 Humira Pen 40 MG/0.4ML Subcutaneous Pen-injector Kit (Adalimumab) Inject under the skin 0.4 mL every 14 days . 6 Each 4 01/03/2022 Active FLUoxetine HCl 40 MG Oral Capsule (PROzac) Take 1 Capsule by mouth in the morning. 90 Capsule 3 02/26/2023 Active Lisinopril 40 MG Oral TabletIndications:H TN, goal below 130/80 Take 0.5 Tablets by mouth in the morning. 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 01/31/2023 Peripheral neuropathy 01/30/2023 Transient cerebral ischemia 01/30/2023 Other hyperlipidemia 01/18/2023 Peripheral vascular disease 09/29/2022 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, in full remission 09/28/2022 Unspecified mood (affective) disorder Hyperlipidemia, unspecified 03/09/2021 S/P partial colectomy 10/11/2020 [...] as of this encounter (statuses as of 07/09/2023) Resolved Problems Problem Noted Date Resolved Date Tremor 01/30/2023 01/31/2023 Hypertensive kidney disease with stage 3a chronic kidney disease 04/11/2021 02/26/2023 Overview: Per CKD protocol Drug-induced polyneuropathy 03/09/202101/02 Hypertensive kidney disease, stage III 04/13/2021 Overview: [...] as of this encounter (statuses as of 07/09/2023) Immunizations Name Administration Dates Next Due Covid-19, Mrna, Lnp-s, Pf, B ivalent, 30 Mcg, IM, 12 yrs and above ([employer]) 08/27/2022 Hepatitis B, 20+ yrs 06/18/2016,01/17/2016,12/16 PPD [...] Miscellaneous Notes * Telephone Encounter - KATHY Escalante - 07/09/2023 1:31 PM EDT Appt scheduled on 12/03 and added to waitlist * Telephone Encounter - Shekhar Perales RN - 07/09/2023 12:56 PM EDT Received forms for assistance through [employer] for Humira. Pt hasn't been seen in clinic since 12/2021, is due for yearly follow up. Scheduling- please call patient to schedule follow up in the clinic with Dr. Benz, if patient doesn't wish to continue following with our office his PCP will need to fill his Humira and assistance forms out going forward. Forms completed and placed at nursing desk- Dr. Benz, need signed by you when you're in clinic next. Thanks. documented in this encounter Plan of Treatment Upcoming Encounters Date Type Specialty Care Team Description 11/21/2023 Office Visit Family Medicine Carson Sol MD [address] [place] [facility] [place] [facility] [place] [address] 12/03/2023 Office Visit Gastroenterology Alexander Benz MD [address] [facility] [place] [address] Health Maintenance Due Date Last Done Comments DISCUSS TOBACCO CESSATION (REFER TO SMARTSET #3291) 1943 Albumin/Creatinine Ratio 1961 Depression Screening, Annual for Pts 12 and Over 10/11/2021 10/11/2020 DTaP,Tdap,and Td Vaccines (2 - Td or Tdap) 06/16/2022 06/16/2012, 11/22/1999 COVID-19 Vaccine (2 - Pfizer risk series) 09/17/2022 08/27/2022 Influenza Vaccine (FLU shot) (#1) 2023 02/17/2019 GFR 04/30/2024 04/30/2023, 03/02, 02/26/2023, Additional history exists Hepatitis B Completed 06/18/2016, 01/02, 12/16/2015 LUNG CANCER SCREENING - USE SMARTSET 03866 Completed 11/13/2018, 12/16/2015, 06/27/2015, Additional history exists Pneumococcal Vaccine: 65+ Years Completed 10/11/2020, 02/17/2019, 12/13/2016 Zoster Vaccines Completed 08/09/2021, 04/01, 05/03/2010 GARDASIL-HPV IMMUNIZATION SERIES Aged Out No longer eligible based on patient's age to complete this topic MENINGOCOCCAL (MENACTRA/MENVEO) Aged Out No longer eligible based on patient's age to complete this topic documented as of this encounter Medical Devices Implanted Type Area Clothes Shaker Device Identifier Shelf Expiration Date Model / Serial / Lot Lens Intraoc 20.5 - [id number] - [id number] Implanted:Qty: 1 on 04/30/2019 by Lazaro Rojas MD at OR [facility] Left: Eye BAUSCH & LOMB 10/31/2023 [id number] / [id number] / Lens Intraoc 20.0 - [id number] - [id number] Implanted:Qty: 1 on 05/14/2019 by Lazaro Rojas MD at OR [facility] Right: Eye BAUSCH & LOMB 01/01/2024 [id number] / [id number] / [id number] documented as of this encounter Advance Directives [...] and were consensually agreed upon. Care Teams Pest Control Service Technician Relationship Specialty Start Date End Date Carson Sol MD [address] [place] [id number] PCP - General Family Medicine 01/24/23 documented as of this encounter
--- OUTSIDE RECORDS SUMMARY | 2023-11-02 12:21 | External Medical Summary | Summary of Care ---
Author Name Unknown Organization [facility] Address [address] [place] [address] Phone [phone] Care Team Providers Care Aerial Hurricane Hunter Name Role Phone Carson Sol MD Primary Care Provider +1- [phone] Reason for Visit * Reason Onset Date Comments Med Request 07/22/2023 Encounter Details Date Type Department Care Team Description 07/22/2023 Collections Rep Telephone Merged With [facility] [address] [place] [address] Jennifer Andersen RN [address] [place] [address] Med Request Allergies Active Allergy Reactions Severity Noted Date Comments Bee Stings 06/21/1998 anaphylaxis Sulfa Antibiotics 04/07/1998 hives documented as of this encounter (statuses as of 07/23/2023) Medications Medication Sig Dispensed Refills Start Date [...] BEDTIME 90 Tablet 2 03/01/2023 4 Active amLODIPine Besylate 5 MG Oral Tablet (Norvasc) Take 1 Tablet by mouth in the morning. 0 Active Chloroquine Phosphate 250 MG Oral Tablet (Aralen) [...] with food. 180 Tablet 3 07/22/2023 Active carvedilol (COREG) 3.125 MG TabletIndication s:HTN, goal below 140/90 Take 1 Tab by mouth 2 times a day. with food 180 Tab 3 08/20/2019 3 Discontinue d(Refill) documented as of this encounter (statuses as of 07/23/2023) Active Problems Problem Noted Date Parkinsonism 01/31/2023 [...] as of this encounter (statuses as of 07/23/2023) Resolved Problems Problem Noted Date Resolved Date [...] as of this encounter (statuses as of 07/23/2023) Immunizations Name Administration Dates Next Due Covid-19, [...] encounter Miscellaneous Notes * Telephone Encounter - Jennifer Andersen RN - 07/23/2023 3:32 PM EDT Patient's made aware of script Jennifer Andersen RN * Telephone Encounter - Carson Sol MD - 07/22/2023 5:24 PM EDT Sent erx * Telephone Encounter - Jennifer Andersen RN - 07/22/2023 1:[address] Sol, Patient was in the hospital last week for HTN urgency, after having a fall. Please see d/c summary on your desk. Prior to admission, patient had been managing his medications, it has been discovered that he has not been taking his medications as prescribed. Per d/c summary, patient is to take Carvedilol 3.125 mg BID-per patient's who is now managing his medications, he has not been taking this medication & has none in the house. Can you please send over the refill to [facility]? Thanks Jennifer Andersen RN documented in this encounter Plan of Treatment Upcoming Encounters Date Type Specialty Care Team Description 07/24/2023 Office Visit Family Medicine Lan Sanford MD [address] [place] [address] 11/21/2023 Office Visit Family Medicine Carson Sol MD [address] [place] [address] 12/03/2023 Office Visit Gastroenterology Alexander Benz MD [address] [place] [address] Health Maintenance Due Date Last Done Comments DISCUSS TOBACCO CESSATION (REFER TO SMARTSET #1344) 1945 Albumin/Creatinine Ratio 1961 Depression Screening, Annual for Pts 12 and Over 10/11/2021 10/11/2020 DTaP,Tdap,and Td Vaccines (2 - Td or Tdap) 06/16/2022 06/16/2012, 11/22/1999 Influenza Vaccine (FLU shot) (#1) 2023 02/17/2019 GFR 04/30/2024 04/30/2023, 03/02, 02/26/2023, Additional history exists Hepatitis B Completed 06/18/2016, 01/02, 12/16/2015 LUNG CANCER SCREENING - USE SMARTSET 24861 Completed 11/13/2018, 12/16/2015, 06/27/2015, Additional history exists [...] this encounter Medical Devices Implanted Type Area Fountain Clerk Device Identifier Shelf Expiration Date Model / Serial / Lot Lens Intraoc 20.5 - [id number] - [id number] Implanted:Qty: 1 on 04/30/2019 by Lazaro Rojas MD at OR [facility] Left: Eye BAUSCH & LOMB 10/31/2023 [id number] / [id number] / Lens Intraoc 20.0 - [id number] - [id number] Implanted:Qty: 1 on 05/14/2019 by Lazaro Rojas MD at OR [facility] Right: Eye BAUSCH & LOMB 01/01/2024 [id number] / [id number] / [id number] documented as of this encounter Visit Diagnoses Diagnosis HTN, goal below 140/90 Unspecified essential hypertension documented in this encounter [...] and were consensually agreed upon. Care Teams Aerial Hurricane Hunter Relationship Specialty Start Date End Date Carson Sol MD [address] [place], [place] [id number] PCP - General Family Medicine 01/24/23 documented as of this encounter
--- OUTSIDE RECORDS SUMMARY | 2023-11-02 12:21 | External Medical Summary | Summary of Care ---
Author Name Unknown Organization [facility] Address [address] [place] [address] Phone [phone] Care Team Providers Care Costume Director Name Role Phone Carson Sol MD Primary Care Provider +1- [phone] Reason for Referral * Evaluate & Treat - Unlimited Visits (Within 3 days (urgent)) - Authorized Specialty Diagnoses / Procedures Referred By Contradha t Referred To Contact Business Objects Analyst Diagnoses HTN, goal below 140/90 Carson Sol MD [address] [place] [address] Referral ID Status Reason Start Date Expiration Date Visits Requested Visits Authorized [id number] Authorized Specialty Services Required 07/22/2023 1 1 Question Answer Referral Priority Within 3 days (urgent) Program Type Case Management Complex Case Management [facility] Health Device(s) Requested Other (See Comment) Alarm Settings Standard per protocol Comments Primary Business Objects Analyst: Jennifer Andersen Is the patient already enrolled with another [facility] device/service? (If no, will need to "push the button") No Does the patient have a physical address? (If no, provide physical address if requesting device) Yes Requested Devices/IVR: IVR Post-Discharge Start date: 07/25/23 How many weeks: 4 If want time other than 9am, note time here: Please call [phone] at 2 pm thanks Jennifer Andersen RN Reason for Visit * Reason Onset Date Comments Follow Up 07/22/2023 Encounter Details Date Type Department Care Team Description 07/22/2023 Business Objects Analyst Telephone [facility] [address] [place] [facility] [place] [address] Jennifer Andersen, RN [address] [place] [facility] [place] [address] Follow Up Allergies Active Allergy Reactions Severity Noted Date Comments Bee Stings 06/21/1998 anaphylaxis Sulfa Antibiotics 04/07/1998 hives documented as of this encounter (statuses as of 07/22/2023) Medications Medication Sig Dispensed Refills Start Date End Date Status CLOBETASOL PROPIONATE 0.05 % EX OINTIndications:D ermatitis Apply to affected area twice daily as needed for flares 60 g 1 03/18/2012 Active VITAMIN B-[address] under the tongue . 0 Active cholecalciferol (VITAMIN D3) 400 UNIT TABS Take 2 Tablets by mouth in the morning. 0 Active carvedilol (COREG) 3.125 MG TabletIndications :HTN, goal below 140/90 Take 1 Tab by mouth 2 times a day. with food 180 Tab 3 08/20/2019 Active Aspirin 81 MG Oral Tablet Chewable [...] BEDTIME 90 Tablet 2 03/01/2023 02/29/2024 Active amLODIPine Besylate 5 MG Oral Tablet [...] 1 Capsule in the evening. 0 Active documented as of this encounter (statuses as of 07/22/2023) Active Problems Problem Noted Date Parkinsonism 01/31/2023 [...] as of this encounter (statuses as of 07/22/2023) Resolved Problems Problem Noted Date Resolved Date [...] as of this encounter (statuses as of 07/22/2023) Immunizations Name Administration Dates Next Due Covid-19, Mrna, Lnp-s, Pf, B ivalent, 30 Mcg, IM, 12 yrs and above ([employer]) 08/27/2022 Hepatitis B, 20+ yrs 06/18/2016,01/17/2016,12/16 PPD [...] Family Medicine Lan Sanford MD [address] [place] [facility] [place] [address] 11/21/2023 Office Visit Family Medicine Carson Sol MD [address] [place] [address] 12/03/2023 Office Visit Gastroenterology Alexander Benz MD [address] [facility] [place] [address] Scheduled Referrals Name Type Priority Associated Diagnoses Orde r Schedule REMOTE PATIENT MONITORING REFERRAL Referral Within 3 days (urgent) HTN, goal below 140/90 Ordered: 07/22/2023 Health Maintenance Due Date Last Done Comments DISCUSS TOBACCO CESSATION (REFER TO SMARTSET #8320) 1945 Albumin/Creatinine Ratio 1961 Depression Screening, Annual for Pts 12 and Over 10/11/2021 10/11/2020 DTaP,Tdap,and Td Vaccines (2 - Td or Tdap) 06/16/2022 06/16/2012, 11/22/1999 Influenza Vaccine (FLU shot) (#1) 2023 02/17/2019 GFR 04/30/2024 04/30/2023, 03/02, 02/26/2023, Additional history exists Hepatitis B Completed 06/18/2016, 01/02, 12/16/2015 LUNG CANCER SCREENING - USE SMARTSET 56331 Completed 11/13/2018, 12/16/2015, 06/27/2015, Additional history exists [...] this encounter Medical Devices Implanted Type Area Gun Number Device Identifier Shelf Expiration Date Model / Serial / Lot Lens Intraoc 20.5 - [id number] - [id number] Implanted:Qty: 1 on 04/30/2019 by Lazaro Rojas MD at OR [facility] Left: Eye BAUSCH & LOMB 10/31/2023 [id number] / [id number] / Lens Intraoc 20.0 - [id number] - [id number] Implanted:Qty: 1 on 05/14/2019 by Lazaro Rojas MD at OR [facility] Right: Eye BAUSCH & LOMB 01/01/2024 [id number] / [id number] / [id number] documented as of this encounter Visit Diagnoses [...] and were consensually agreed upon. Care Teams Costume Director Relationship Specialty Start Date End Date Carson Sol MD [address] [place], [place] [phone] PCP - General Family Medicine 01/24/23 documented as of this encounter
--- OUTSIDE RECORDS SUMMARY | 2023-11-02 12:21 | External Medical Summary | Summary of Care ---
Author Name Unknown Organization [facility] Address [address] [place] [address] Phone [phone] Care Team Providers Care Beta Tester Name Role Phone Carson Sol MD Primary Care Provider +1- [phone] Reason for Visit * Reason Onset Date Comments Med Request 07/22/2023 Encounter Details Date Type Department Care Team Description 07/22/2023 Audience Coordinator Telephone [facility] [address] [place] [address] Jennifer Andersen RN [address] [place] [address] Med Request Allergies Active Allergy [...] encounter Miscellaneous Notes * Telephone Encounter - Carson Sol MD [...] Family Medicine Lan Sanford MD [address] [place] [address] 11/21/2023 Office Visit Family Medicine Carson Sol MD [address] [place] [address] 12/03/2023 Office Visit Gastroenterology Alexander Benz MD [address] [place] [address] Health Maintenance Due Date Last Done Comments DISCUSS TOBACCO CESSATION (REFER TO SMARTSET #3290) 1945 Albumin/Creatinine Ratio 1961 Depression Screening, Annual for Pts 12 and Over 10/11/2021 10/11/2020 DTaP,Tdap,and Td Vaccines (2 - Td or Tdap) 06/16/2022 06/16/2012, 11/22/1999 Influenza Vaccine (FLU shot) (#1) 2023 02/17/2019 GFR 04/30/2024 04/30/2023, 03/02, 02/26/2023, Additional history exists Hepatitis B Completed 06/18/2016, 01/02, 12/16/2015 LUNG CANCER SCREENING - USE SMARTSET 81385 Completed 11/13/2018, 12/16/2015, 06/27/2015, Additional history exists [...] this encounter Medical Devices Implanted Type Area Cheesemaker Helper Device Identifier Shelf Expiration Date Model / Serial / Lot Lens Intraoc 20.5 - [id number] - [id number] Implanted:Qty: 1 on 04/30/2019 by Lazaro Rojas MD at OR [facility] Left: Eye BAUSCH & LOMB 10/31/2023 [id number] / [id number] / Lens Intraoc 20.0 - [id number] - [id number] Implanted:Qty: 1 on 05/14/2019 by Lazaro Rojas MD at OR [facility] Right: Eye BAUSCH & LOMB 01/01/2024 [id number] / [id number] / [id number] documented as of this encounter Visit Diagnoses [...] and were consensually agreed upon. Care Teams Beta Tester Relationship Specialty Start Date End Date Carson Sol MD [address] [place], [place] [phone] PCP - General Family Medicine 01/24/23 documented as of this encounter
--- OUTSIDE RECORDS SUMMARY | 2023-11-02 12:21 | External Medical Summary | Summary of Care ---
Author Name Unknown Organization [facility] Address [address] [facility] [place] [address] Phone [phone] Care Team Providers Care Pneumatic Deicer Inspector Name Role Phone Carson Sol MD Primary Care Provider +1- [phone] Reason for Visit * Reason Onset Date Comments Patient Assistance Program 07/09/2023 Porfirio kirby Encounter Details Date Type Department Care Team Description 07/09/2023 Telephone Gastroenterology, [facility] [address] [place] [address] Alexander Benz MD [address] [place] [id number] Patient Assistance Program ([employer]) Allergies Active Allergy Reactions Severity Noted Date [...] 30 Mcg, IM, 12 yrs and above ([employer]) 08/27/2022 Hepatitis B, 20+ yrs 06/18/2016,01/17/2016,12/16 PPD [...] PM EDT Received forms for assistance through [employer] for Humira. Pt hasn't been seen in [...] Family Medicine Carson Sol MD [address] [place] [facility] [place] [address] 12/03/2023 Office Visit Gastroenterology Alexander Benz MD [address] [facility] [place] [address] Health Maintenance Due Date Last Done Comments [...] 12/16/2015 LUNG CANCER SCREENING - USE SMARTSET 13506 Completed 11/13/2018, 12/16/2015, 06/27/2015, Additional history exists Pneumococcal Vaccine: 65+ Years Completed 10/11/2020, 02/17/2019, 12/13/2016 Zoster Vaccines Completed 08/09/2021, 04/01, 05/03/2010 GARDASIL-HPV IMMUNIZATION SERIES Aged Out No longer eligible based on patient's age to complete this topic MENINGOCOCCAL (MENACTRA/MENVEO) Aged Out No longer eligible based on patient's age to complete this topic documented as of this encounter Medical Devices Implanted Type Area Career Discovery Teacher Device Identifier Shelf Expiration Date Model / Serial / Lot Lens Intraoc 20.5 - [id number] - [id number] Implanted:Qty: 1 on 04/30/2019 by Lazaro Rojas MD at OR [facility] Left: Eye BAUSCH & LOMB 10/31/2023 [id number] / [id number] / Lens Intraoc 20.0 - [id number] - [id number] Implanted:Qty: 1 on 05/14/2019 by Lazaro Rojas MD at OR [facility] Right: Eye BAUSCH & LOMB 01/01/2024 [id number] / [id number] / [id number] documented as of this encounter Advance Directives [...] and were consensually agreed upon. Care Teams Pneumatic Deicer Inspector Relationship Specialty Start Date End Date Carson Sol MD [address] [place] [phone] PCP - General Family Medicine 01/24/23 documented as of this encounter
--- OUTSIDE RECORDS SUMMARY | 2023-11-02 12:21 | External Medical Summary | Summary of Care ---
Author Name Unknown Organization [facility] Address [address] [place] [address] Phone [phone] Care Team Providers Care Circular Knife Machine Cutter Name Role Phone Carson Sol MD Primary Care Provider [phone]- [phone] Reason for Visit * Reason Onset Date Comments Follow Up 05/13/2023 Encounter Details Date Type Department Care Team Description 05/13/2023 Telephone [facility] [address] [place] [address] Carson Sol MD [address] [place] [address] Follow Up Allergies Active Allergy Reactions Severity Noted Date Comments Bee Stings 06/21/1998 anaphylaxis Sulfa Antibiotics 04/07/1998 hives documented as of this encounter (statuses as of 05/14/2023) Medications Medication Sig Dispensed Refills Start Date [...] days . 6 Each 4 01/03/2022 Active amLODIPine Besylate 10 MG Oral Tablet (Norvasc) TAKE ONE TABLET BY MOUTH EVERY DAY 90 Tablet 3 07/04/2022 Active FLUoxetine HCl 40 MG Oral Capsule (PROzac) Take 1 Capsule by mouth in the morning. 90 Capsule 3 02/26/2023 Active traZODone HCl 150 MG Oral Tablet (Desyrel) TAKE ONE TABLET BY MOUTH EVERY DAY AT BEDTIME 90 Tablet 2 03/01/2023 Active Lisinopril 40 MG Oral TabletIndications:H TN, goal below 130/80 Take 0.5 Tablets by mouth in the morning. 90 Tablet 2 03/15/2023 Active Gabapentin 600 MG Oral Tablet (Neurontin) TAKE ONE TABLET BY MOUTH TWICE A DAY ALONG WITH 800MG TABLET 180 Tablet 1 04/20/2023 Active documented as of this encounter (statuses as of 05/14/2023) Active Problems Problem Noted Date Parkinsonism 01/31/2023 [...] as of this encounter (statuses as of 05/14/2023) Resolved Problems Problem Noted Date Resolved Date [...] as of this encounter (statuses as of 05/14/2023) Immunizations Name Administration Dates Next Due Covid-19, [...] Miscellaneous Notes * Telephone Encounter - KATHY Bethea - 05/14/2023 9:02 AM EDT First available scheduled. 05/14/2023 * Telephone Encounter - Carson Sol MD - 05/13/2023 9:21 PM EDT Pt last seen a few weeks ago in the weekend clinic. Please call to offer follow up appt in office Something in a few months or next available. documented in this encounter Plan of Treatment Upcoming Encounters Date Type Specialty Care Team Description 09/13/2023 Office Visit Nephrology Myron Bailey MD [address] [place] [id number] 11/21/2023 Office Visit Family Medicine Carson Sol MD [address] [place] [address] Health Maintenance Due Date Last Done Comments DISCUSS TOBACCO CESSATION (REFER TO SMARTSET #3291) 1943 Albumin/Creatinine Ratio 1961 Hepatitis C Screening 1961 Depression Screening, Annual for Pts 12 and Over 10/11/2021 10/11/2020 DTaP,Tdap,and Td Vaccines (2 - Td or Tdap) 06/16/2022 06/16/2012, 11/22/1999 COVID-19 Vaccine (2 - Pfizer risk series) 09/17/2022 08/27/2022 Influenza Vaccine (FLU shot) (Season Ended) 2023 02/17/2019 GFR 04/30/2024 04/30/2023, 03/02, 02/26/2023, Additional history exists Hepatitis B Completed 06/18/2016, 01/02, 12/16/2015 LUNG CANCER SCREENING - USE SMARTSET 68733 Completed 11/13/2018, 12/16/2015, 06/27/2015, Additional history exists Pneumococcal Vaccine: 65+ Years Completed 10/11/2020, 02/17/2019, 12/13/2016 Zoster Vaccines Completed 08/09/2021, 04/01, 05/03/2010 GARDASIL-HPV IMMUNIZATION SERIES Aged Out No longer eligible based on patient's age to complete this topic MENINGOCOCCAL (MENACTRA/MENVEO) Aged Out No longer eligible based on patient's age to complete this topic documented as of this encounter Medical Devices Implanted Type Area Slater Apprentice Device Identifier Shelf Expiration Date Model / Serial / Lot Lens Intraoc 20.5 - [id number] - [id number] Implanted:Qty: 1 on 04/30/2019 by Lazaro Rojas MD at OR [facility] Left: Eye BAUSCH & LOMB 10/31/2023 [id number] / [id number] / Lens Intraoc 20.0 - [id number] - [id number] Implanted:Qty: 1 on 05/14/2019 by aLzaro Rojas MD at OR [facility] Right: Eye BAUSCH & LOMB 01/01/2024 [id number] / [id number] / [id number] documented as of this encounter Advance Directives [...] and were consensually agreed upon. Care Teams Circular Knife Machine Cutter Relationship Specialty Start Date End Date Carson Sol MD [facility] [place] [address] PCP - General Family Medicine 01/24/23 documented as of this encounter
--- OUTSIDE RECORDS SUMMARY | 2023-11-02 12:21 | External Medical Summary | Summary of Care ---
Author Name Unknown Organization [facility] Address [address] [facility] [place] [address] Phone [phone] Care Team Providers Care Wool Spotter Name Role Phone Carson Sol MD Primary Care Provider [phone]- [phone] Reason for Visit * Reason Onset Date Comments Patient Assistance Program 07/09/2023 Porfirio kirby Encounter Details Date Type Department Care Team Description 07/09/2023 Telephone Gastroenterology, [facility] [address] [place] [id number] Alexander Benz MD [address] [place] [id number] Patient Assistance Program ([employer]) Allergies Active Allergy Reactions Severity Noted Date Comments Bee Stings 06/21/1998 anaphylaxis Sulfa Antibiotics 04/07/1998 hives documented as of this encounter (statuses as of 07/11/2023) Medications Medication Sig Dispensed Refills Start Date [...] as of this encounter (statuses as of 07/11/2023) Active Problems Problem Noted Date Parkinsonism 01/31/2023 [...] as of this encounter (statuses as of 07/11/2023) Resolved Problems Problem Noted Date Resolved Date [...] as of this encounter (statuses as of 07/11/2023) Immunizations Name Administration Dates Next Due Covid-19, Mrna, Lnp-s, Pf, B ivalent, 30 Mcg, IM, 12 yrs and above ([employer]) 08/27/2022 Hepatitis B, 20+ yrs 06/18/2016,01/17/2016,12/16 PPD [...] PM EDT Received forms for assistance through [employer] for Humira. Pt hasn't been seen in [...] Family Medicine Carson Sol MD [address] [place] [facility] [place] [address] 12/03/2023 Office Visit Gastroenterology Alexander Benz MD [address] [facility] [place] [address] Health Maintenance Due Date Last Done Comments [...] 12/16/2015 LUNG CANCER SCREENING - USE SMARTSET [id number] Completed 11/13/2018, 12/16/2015, 06/27/2015, Additional history exists Pneumococcal Vaccine: 65+ Years Completed 10/11/2020, 02/17/2019, 12/13/2016 Zoster Vaccines Completed 08/09/2021, 04/01, 05/03/2010 GARDASIL-HPV IMMUNIZATION SERIES Aged Out No longer eligible based on patient's age to complete this topic MENINGOCOCCAL (MENACTRA/MENVEO) Aged Out No longer eligible based on patient's age to complete this topic documented as of this encounter Medical Devices Implanted Type Area Word Processing Operator Device Identifier Shelf Expiration Date Model / Serial / Lot Lens Intraoc 20.5 - [id number] - [id number] Implanted:Qty: 1 on 04/30/2019 by Lazaro Rojas MD at OR [facility] Left: Eye BAUSCH & LOMB 10/31/2023 [id number] / [id number] / Lens Intraoc 20.0 - [id number] - [id number] Implanted:Qty: 1 on 05/14/2019 by Lazaro Rojas MD at OR [facility] Right: Eye BAUSCH & LOMB 01/01/2024 [id number] / [id number] / [id number] documented as of this encounter Advance Directives [...] and were consensually agreed upon. Care Teams Wool Spotter Relationship Specialty Start Date End Date Carson Sol MD [address] [place] [address] PCP - General Family Medicine 01/24/23 documented as of this encounter
--- OUTSIDE RECORDS SUMMARY | 2023-11-02 12:21 | External Medical Summary | Summary of Care ---
Author Name Unknown Organization [facility] Address [address] [place] [address] Phone [phone] Care Team Providers Care Care Mgr Name Role Phone Carson Sol MD Primary Care Provider +1- [phone] Encounter Details Date Type Department Care Team Description 07/22/2023 Digital Field Service [facility] [address] [place] [address] Jennifer Andersen, RN [address] [place] [address] Parkinsonism, unspecified Parkinsonism type (HCC)* Allergies Active Allergy Reactions Severity Noted Date Comments Bee Stings 06/21/1998 anaphylaxis Sulfa Antibiotics 04/07/1998 hives documented as of this encounter (statuses as of 07/22/2023) Medications Medication Sig Dispensed Refills Start Date End Date Status CLOBETASOL PROPIONATE 0.05 % EX OINTIndications:De rmatitis Apply to affected area twice daily as needed for flares 60 g 1 03/18/2012 Active VITAMIN B-[address] under the tongue . 0 Active cholecalciferol (VITAMIN D3) 400 UNIT TABS Take 2 Tablets by mouth in the morning. 0 Active carvedilol (COREG) 3.125 MG TabletIndications: HTN, goal below 140/90 Take 1 Tab by [...] 1 Capsule in the evening. 0 Active omeprazole (PRILOSEC) 20 MG CPDRIndications:Ga stroesophageal reflux disease, esophagitis presence not specified 1 daily 90 Cap 3 08/20/2019 3 Discontinue d(Patient preference/ discontinua tion) atorvaSTATin (LIPITOR) 40 MG Tablet 1 Tablet. 0 05/29/2020 3 Discontinue d(Patient preference/ discontinua tion) Humira Pen 40 MG/0.4ML Subcutaneous Pen-injector Kit (Adalimumab) Inject under the skin 0.4 mL every 14 days . 6 Each 4 01/03/2022 3 Discontinue d(Patient preference/ discontinua tion) Lisinopril 40 MG Oral TabletIndications: HTN, goal below 130/80 Take 0.5 Tablets by mouth in the morning. 90 Tablet 2 03/15/2023 3 Discontinue d(Patient preference/ discontinua tion) Gabapentin 600 MG Oral Tablet (Neurontin) TAKE ONE TABLET BY MOUTH TWICE A DAY ALONG WITH 800MG TABLET 180 Tablet 1 04/20/2023 3 Discontinue d(Medicatio n/Dose Changed) documented as of this encounter (statuses as [...] 30 Mcg, IM, 12 yrs and above ([employer]) 08/27/2022 Hepatitis B, 20+ yrs 06/18/2016,01/17/2016,12/16 PPD [...] Progress Notes * Jennifer Andersen RN - 07/22/2023 12:36 PM EDT Digital Field Service Technician Progress Note: Date: 07/22/23 Assigned Patient Tier: 2 Connected with patient's Ana via phone. Verified patient name/. Advised patient that call is being recorded for quality and training purposes. Assessment: Per Ana/, noted the following: Patient denies SOB, cough, LE edema or angina Ana states patient is alert, able to follow commands Has a fair appetite, denies bowel/bladder complaints No complaints of pain, has red area to crack of bottom Encouraged to have patient change positions frequently, report to any open areas Sleeping okay at night Lives with his in a 1 story home Patient using a quad cane to ambulate, assists with ADL's, transportation & medications Will send information on advance directives per patient's request Confirmed patient has a follow up appointment with Dr. Sanford on 07/24/23 [facility] home care to see patient today [facility] N[facility] referral, recent hx of falls, check safety, do bottle out med review Encouraged to check patients BP 2 times a day, keep log, bring to appointments Will enroll in post d/c IVR calls Did you receive an alert for an annual wellness visit? No Is this call for a hospital, half-way or rehab facility discharge to home? Yes [facility] 07/17/23,treated for HTN urgency, s/p fall, cardiac work up, discharged home on 07/18/23 Medication Reconciliation: Medication Reconciliation completed: yes Review of Current goals: Discussed the following patient-centered CM goals with the patient during this discussion: -HYPERTENSION: Achieve successful management/treatment of HTN -Status: On Track admitted for elevated BP, reminded to check BP 2x a day, call CM with BP 160/90 or higher. -TREATMENT: Heal and maintain skin integrity -Status: On Track patient with red area to his bottom, encouraged patient to change positions frequently. -SAFETY: Prevent falls or injuries -Status: On Track patient using quad cane when ambulating, recent hx of falls, [facility] NEL referral requested. COPD Patient: No CHF Patient: NO CM Plan: Reviewed 3 Red Flags with patient. Advised to call CM with any of the following: Red Flag 1: increased SOB, cough, Red Flag 2: fever, chills, or Red Flag 3: BP 160-90 or higher, headache, weakness, increased confusion and Referral to: NEL for home visit, check safety, med review. Remote Patient Monitoring: At this time, RPM not offered/considered for patient due to not needed at this time, confirms patient hs a BP cuff at home. Plan for Future Contacts: Plan to follow up within 1 week to check progress on the following goals/needs as above. Planned contacts from the following parties will occur this week: [facility] Quality Improvement Engineer and PCP office visit as additional contacts per workflow. Advancement/Closure Plan: Keep patient at current Tier with reassessment per workflow. Patient provided CM contact information and encouraged to call with any changes in condition. SNP Member? No PCP Notified of enrollment in CM/HM program: Yes Is Provider in agreement with POC? Yes Jennifer Andersen RN Outpatient Case Management documented in this encounter Plan of Treatment Upcoming Encounters Date Type Specialty Care Team Description 07/24/2023 Office Visit Family Medicine Lan Sanford MD [address] [place] [address] 11/21/2023 Office Visit [facility] [address] [facility] [address] 12/03/2023 Office Visit Gastroenterology Alexander Benz MD [address] [place] [address] Health Maintenance Due Date Last Done Comments [...] 12/16/2015 LUNG CANCER SCREENING - USE SMARTSET 95604 Completed 11/13/2018, 12/16/2015, 06/27/2015, Additional history exists [...] this encounter Medical Devices Implanted Type Area Dry House Worker Device Identifier Shelf Expiration Date Model / Serial / Lot Lens Intraoc 20.5 - [id number] - [id number] Implanted:Qty: 1 on 04/30/2019 by Lazaro Rojas MD at OR [facility] Left: Eye BAUSCH & LOMB 10/31/2023 [id number] / [id number] / Lens Intraoc 20.0 - [id number] - [id number] Implanted:Qty: 1 on 05/14/2019 by Lazaro Rojas MD at OR [facility] Right: Eye BAUSCH & LOMB 01/01/2024 [id number] / [id number] / [id number] documented as of this encounter Visit Diagnoses Diagnosis Parkinsonism, unspecified Parkinsonism type (HCC)- Primary documented in this encounter Advance Directives Latest [...] and were consensually agreed upon. Care Teams Care Mgr Relationship Specialty Start Date End Date Carson Sol MD [address] [place] [address] PCP - General Family Medicine 01/24/23 documented as of this encounter
--- OUTSIDE RECORDS SUMMARY | 2023-11-02 12:21 | External Medical Summary | Summary of Care ---
Author Name Unknown Organization [facility] Address [address] [place] [address] Phone [phone] Care Team Providers Care Filler Machine Operator Name Role Phone Carson Sol MD Primary Care Provider +1- [phone] Reason for Referral * Evaluate & Treat - Unlimited Visits (Within 30 days (routine)) - Authorized Specialty Diagnoses / Procedures Referred By Veronica lynn Referred To Contact Physical Therapy / Physical Medicine And Rehab Diagnoses Ambulatory dysfunction Carson Sol MD [address] [place] [address] Referral ID Status Reason Start Date Expiration Date Visits Requested Visits Authorized [id number] Authorized Specialty Services Required 04/20/2023 999 999 Question Answer Referral Priority Within 30 days (routine) Reason for Visit * Reason Comments Physical-Exam Has not noticed any improvement in mood with increased dose of Prozac. Medications reviewed with patient. He is not sure if he is taking most of the medications on his list. Encounter Details Date Type Department Care Team Description 04/20/2023 Office Visit Family Medicine [facility] [address] [facility] [place] [address] Carson Sol MD [address] [place] [address] Ambulatory dysfunction*; Cold intolerance; Stage 3b chronic kidney disease (HCC); Parkinsonism, unspecified Parkinsonism type (HCC); Peripheral polyneuropathy; Moderate episode of recurrent major depressive disorder (HCC); History of cancer of ileum; Personal history of prostate cancer Allergies Active Allergy Reactions Severity Noted Date Comments Bee Stings 06/21/1998 anaphylaxis Sulfa Antibiotics 04/07/1998 hives documented as of this encounter (statuses as of 05/13/2023) Medications Medication Sig Dispensed Refills Start Date [...] morning. 0 Active omeprazole (PRILOSEC) 20 MG CPDRIndications:G astroesophageal reflux disease, esophagitis presence not specified 1 daily 90 Cap 3 08/20/2019 Active carvedilol (COREG) 3.125 MG TabletIndications :HTN, [...] 2 03/01/2023 Active Lisinopril 40 MG Oral TabletIndications :HTN, goal below 130/80 Take 0.5 Tablets by mouth in the morning. 90 Tablet 2 03/15/2023 Active Gabapentin 600 MG Oral Tablet (Neurontin) TAKE ONE TABLET BY MOUTH TWICE A DAY ALONG WITH 800MG TABLET 180 Tablet 1 04/20/2023 Active Gabapentin 600 MG Oral Tablet (Neurontin) TAKE ONE TABLET BY MOUTH TWICE A DAY ALONG WITH 800MG TABLET 180 Tablet 1 08/27/2022 3 Discontinued (Refill) Lidocaine 5 % External Patch (Lidoderm) Place topically on the skin 1 Patch daily . 30 Patch 0 09/28/2022 3 Discontinued (Medication List Clean Up) Hydrocortisone (Perianal) 2.5 % External Cream Administer into the rectum 1 g in the morning AND 1 g before bedtime. 28 g 5 09/28/2022 3 Discontinued (Medication List Clean Up) Carbidopa-Levodop a 25-100 MG Oral Tablet (Sinemet) Take 0.5 Tablets by mouth 3 times a day for 7 days, THEN 1 Tablet 3 times a day for 7 days, THEN 1.5 Tablets 3 times a day for 7 days, THEN 2 Tablets 3 times a day. 423 Tablet 0 01/31/2023 3 documented as of this encounter (statuses as of 05/13/2023) Active Problems Problem Noted Date Parkinsonism 01/31/2023 [...] as of this encounter (statuses as of 05/13/2023) Resolved Problems Problem Noted Date Resolved Date [...] as of this encounter (statuses as of 05/13/2023) Immunizations Name Administration Dates Next Due Covid-19, [...] Sign Reading Time Taken Comments Blood Pressure 140/86 04/20/2023 1:35 PM EDT Pulse 75 04/20/2023 1:35 PM EDT Temperature 36.8 C (98.2 F) 04/20/2023 1:35 PM ED T Respiratory Rate 18 04/20/2023 1:35 PM EDT Oxygen Saturation 95% 04/20/2023 1:35 PM EDT Inhaled Oxygen Concentration - - Weight 69.4 kg (153 lb) 04/20/2023 1:35 PM EDT Height 177.8 cm (5' 10") 04/20/2023 1:35 PM EDT Body Mass Index 21.95 04/20/2023 1:35 PM EDT documented in this encounter Progress Notes * Carson Sol MD - 04/20/2023 2:27 PM EDT Subjective: Tray Fenton is a 77 year old male here today for Chief Complaint Patient presents with Physical-Exam Has not noticed any improvement in mood with increased dose of Prozac. Medications reviewed with patient. He is not sure if he is taking most of the medications on his list. Pt here for eval of ongoing issues. Ambulatory dysfunction, depression, lack of motivation. Has extensive and complex PMH. Recently had Prozaca dose increased but has not noticed any improvements in symptoms. Past Medical History: Diagnosis Date HTN, goal below 140/90 S/P partial colectomy 10/11/2020 Umbilical hernia Past Surgical History: Procedure Laterality Date COLONOSCOPY 2003 [place] - normal. repeat 2013 COLONOSCOPY W/ BIOPSY (RECTUM) 10/03/2011 crohns COLONOSCOPY, DIAGNOSTIC (RECTUM) 08/20/2014 diverticulosis, Crohn's ileitis/COLONOSCOPY FLEXIBLE PROXIMAL DIAGNOSTIC performed by Alexander Benz MD at ENDOSCOPY [facility] [address] COLONOSCOPY, DIAGNOSTIC (RECTUM) 11/17/2015 Crohns, diverticulosis/COLONOSCOPY FLEXIBLE PROXIMAL DIAGNOSTIC performed by Alexander Benz MD at ENDOSCOPY [facility] [address] COLONOSCOPY, DIAGNOSTIC (RECTUM) 11/28/2016 active Crohn's disease/COLONOSCOPY FLEXIBLE PROXIMAL DIAGNOSTIC performed by Alexander Benz MD at ENDOSCOPY [facility] [address] COLONOSCOPY, DIAGNOSTIC (RECTUM) 09/23/2018 normal bx/COLONOSCOPY FLEXIBLE PROXIMAL DIAGNOSTIC performed by Alexander Benz MD at ENDOSCOPY [facility] [address] COLONOSCOPY, DIAGNOSTIC (RECTUM) 03/16/2022 end to side ileo-colonic anastomosis/diverticulosis sigmoid and descending colon/biopsies show small amount of inflammation/COLONOSCOPY FLEXIBLE PROXIMAL DIAGNOSTIC performed by Zoila Aquino DO at[facility]COPY [facility] EGD, FLEXIBLE, DIAGNOSTIC 08/09/2010 zenkers diverticulum esophagus intubated using laryngo scope, capsule video released into the duodenum EGD, FLEXIBLE, DIAGNOSTIC 08/31/2015 ESOPHAGOGASTRODUODENOSCOPY (EGD), FLEXIBLE, TRANSORAL, DIAGNOSTIC performed by Marcus Puga MD at[facility] EGD, FLEXIBLE, DIAGNOSTIC 11/04/2018 normal bx/ESOPHAGOGASTRODUODENOSCOPY (EGD), FLEXIBLE, TRANSORAL, DIAGNOSTIC performed by Alexander Benz MD at ENDOSCOPY [facility] [address] LAPAROSCOPIC PARTIAL COLECTOMY W/REMOVAL TERMINAL ILEUM 09/11/2010 LAPAROSCOPIC PARTIAL COLECTOMY REMOVAL OF TERMINAL ILEUM performed by LIV MELGAR at OR [facility] NEEDLE/PUNCH BIOPSY OF PROSTATE 02/27/2016 Prostate,Needle/Punch Biopsy PROSTATE BIOPSY 08/31/2019 done in office, Dr Henson REMOVAL OF PROSTATE (TURP) 09/25/2019 TRANSURETHRAL RESECTION PROSTATE ELECTROSURGICAL performed by Yelitza Henson MD at [facility] REMOVE CATARACT, INSERT LENS PROSTH Left 04/30/2019 left EXTRACAPSULAR CATARACT REMOVAL WITH INTRAOCULAR LENS performed by Lazaro Rojas MD at [facility] REMOVE CATARACT, INSERT LENS PROSTH Right 05/14/2019 right EXTRACAPSULAR CATARACT REMOVAL WITH INTRAOCULAR LENS performed by Lazaro Rojas MD at OR [facility] REMOVE TONSILS & ADENOIDS, UNDER 12 Tonsillectomy/Adenoids,<12 Y/O REPAIR OF NASAL SEPTUM Review of patient's allergies indicates: Allergen Reactions Bee Stings anaphylaxis Sulfa Antibiotics hives Current Outpatient Medications Medication Sig Dispense Refill cholecalciferol (VITAMIN D3) 400 UNIT TABS Take 2 Tablets by mouth in the morning. amLODIPine Besylate 10 MG Oral Tablet (Norvasc) TAKE ONE TABLET BY MOUTH EVERY DAY 90 Tablet 3 Gabapentin 600 MG Oral Tablet (Neurontin) TAKE ONE TABLET BY MOUTH TWICE A DAY ALONG WITH 800MGTABLET 180 Tablet 1 CLOBETASOL PROPIONATE 0.05 % EX OINT Apply to affected area twice daily as needed for flares 60g 1 VITAMIN B-[address] under the tongue . omeprazole (PRILOSEC) 20 MG CPDR 1 daily 90 Cap 3 carvedilol (COREG) 3.125 MG Tablet Take 1 Tab by mouth 2 times a day. with food 180 Tab 3 atorvaSTATin (LIPITOR) 40 MG Tablet 1 Tablet. (Patient not taking: Reported on 03/14/2023) Aspirin 81 MG Oral Tablet Chewable Take 1 Tablet by mouth daily. with food. (Patient taking differently: Take 1 Tablet by mouth in the morning. with food..) 100 Tablet 5 Humira Pen 40 MG/0.4ML Subcutaneous Pen-injector Kit (Adalimumab) Inject under the skin 0.4 mL every 14 days . 6 Each 4 FLUoxetine HCl 40 MG Oral Capsule (PROzac) Take 1 Capsule by mouth in the morning. 90 Capsule 3 traZODone HCl 150 MG Oral Tablet (Desyrel) TAKE ONE TABLET BY MOUTH EVERY DAY AT BEDTIME 90 Tablet 2 Lisinopril 40 MG Oral Tablet Take 0.5 Tablets by mouth in the morning. (Patient not taking: Reported on 04/20/2023) 90 Tablet 2 No current facility-administered medications for this visit. Objective: BP 140/86 (BP Site: Left Arm, BP Position: Sitting, BP Cuff Size: Regular) | Pulse 75 | Temp 36.8 C (98.2 F) (Tympanic) | Resp 18 | Ht 1.778 m (5' 10") | Wt 69.4 kg (153 lb) | SpO2 95%| BMI 21.95 kg/m | BSA 1.85 m GEN: NAD HEENT: Benign NECK: Supple with no LAD, TM, JVD CHEST: CTA B CV: RRR ABD: Soft, NT/ND, No HSM, NABS EXT: No c,c,e Assessment and Plan: Ambulatory dysfunction (Primary) - PHYSICAL THERAPY REFERRAL OP Cold intolerance - TSH WITH FREE T4 IF INDICATED; Future; Expected date: 04/20/2023 - CBC; Future; Expected date: 04/20/2023 Stage 3b chronic kidney disease (HCC) - COMPREHENSIVE METABOLIC PANEL; Future; Expected date: 04/20/2023 Parkinsonism, unspecified Parkinsonism type (HCC) Peripheral polyneuropathy 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 Other orders - Gabapentin 600 MG Oral Tablet (Neurontin); TAKE ONE TABLET BY MOUTH TWICE A DAY ALONG WITH 800MG TABLET 36 min with pt and chart review Carson Sol MD documented in this encounter Plan of Treatment Upcoming Encounters Date Type Specialty Care Team Description 09/13/2023 Office Visit Nephrology Myron Bailey MD [address], [place] [id number] Scheduled Referrals Name Type Priority Associated Diagnoses Orde r Schedule PHYSICAL THERAPY REFERRAL OP Referral Within 30 days (routine) Ambulatory dysfunction Ordered: 04/20/2023 Health Maintenance Due Date Last Done Comments [...] 12/16/2015 LUNG CANCER SCREENING - USE SMARTSET 92359 Completed 11/13/2018, 12/16/2015, 06/27/2015, Additional history exists Pneumococcal Vaccine: 65+ Years Completed 10/11/2020, 02/17/2019, 12/13/2016 Zoster Vaccines Completed 08/09/2021, 04/01, 05/03/2010 GARDASIL-HPV IMMUNIZATION SERIES Aged Out No longer eligible based on patient's age to complete this topic MENINGOCOCCAL (MENACTRA/MENVEO) Aged Out No longer eligible based on patient's age to complete this topic documented as of this encounter Medical Devices Implanted Type Area Bill Board Poster Device Identifier Shelf Expiration Date Model / Serial / Lot Lens Intraoc 20.5 - [id number] - [id number] Implanted:Qty: 1 on 04/30/2019 by Lazaro Rojas MD at OR [facility] [address] Left: Eye [employer]CH [employer] LOMB 10/31/2023 [id number] / [id number] / Lens Intraoc 20.0 - [id number] - [id number] Implanted:Qty: 1 on 05/14/2019 by Lazaro Rojas MD at OR [facility] [address] Right: Eye BAUSCH & LOMB 01/01/2024 [id number] / [id number] / [id number] documented as of this encounter Results * (ABNORMAL) COMPREHENSIVE METABOLIC PANEL (04/30/2023 1:59 PM EDT) BUN 16 6 - 20 mg/dL 05/01/2023 1:16 AM EDT [facility] Creatinine 1.9(H) 0.6 - 1.2 mg/dL 05/01/2023 1:16 AM EDT LABORATORY [facility] Estimated Glomerular Filtration Rate 35(L) >=60 mL/min 05/01/2023 1:16 AM EDT [facility] Comment:eGFR is calculated b ased on the CKD-EPI 2020 equation Sodium 137 135 - 146 mmol/L 05/01/2023 1:16 AM EDT [facility] Potassium 3.7 3.5 - 5.1 mmol/L 05/01/2023 1:16 AM EDT [facility] Chloride 98 98 - 107 mmol/L 05/01/2023 1:16 AM EDT [facility] CO2 27 22 - 32 mmol/L 05/01/2023 1:16 AM EDT [facility] Anion Gap 12 7 - 15 mmol/L 05/01/2023 1:16 AM EDT [facility] Glucose 85 70 - 120 mg/dL 05/01/2023 1:16 AM EDT [facility] Albumin 3.9 3.8 - 5.0 g/dL 05/01/2023 1:16 AM EDT [facility] AST 10 10 - 50 U/L 05/01/2023 1:16 AM EDT [facility] Alkaline Phosphatase 122 35 - 130 U/L 05/01/2023 1:16 AM EDT [facility] Bilirubin, Total 0.6 <=1.2 mg/dL 05/01/2023 1:16 AM EDT [facility] Calcium 10.1 8.4 - 10.2 mg/dL 05/01/2023 1:16 AM EDT [facility] Protein 7.2 6.0 - 8.3 g/dL 05/01/2023 1:16 AM EDT [facility] ALT 7(L) 10 - 50 U/L 05/01/2023 1:16 AM EDT [facility] Blood Venous blood specimen / Unknown Venipuncture / Unknown 04/30/2023 1:59 PM EDT 04/30/2023 2:02 PM EDT Carson Sol MD LAB BLOOD ORDERABL ES [facility] [address] [place] [address] * (ABNORMAL) CBC (04/30/2023 1:59 PM EDT) WBC 7.42 4.00 - 10.80 K/uL 04/30/2023 10:52 PM EDT [facility] RBC 4.18 4.50 - 5.25 M/uL 04/30/2023 10:52 PM EDT [facility] HGB 12.4(L) 14.0 - 16.8 g/dL 04/30/2023 10:52 PM EDT [facility] HCT 37.8(L) 40.0 - 48.4 % 04/30/2023 10:52 PM EDT [facility] MCV 90.4 82.0 - 99.5 fL 04/30/2023 10:52 PM EDT [facility] MCH 29.7 27.0 - 34.0 pg 04/30/2023 10:52 PM EDT [facility] MCHC 32.8 32.0 - 36.0 g/dL 04/30/2023 10:52 PM EDT [facility] RDW 14.5 11.5 - 15.5 % 04/30/2023 10:52 PM EDT [facility] PLT 210 140 - 400 K/uL 04/30/2023 10:52 PM EDT [facility] MPV 12.4 6.6 - 11.1 fL 04/30/2023 10:52 PM EDT [facility] nRBCs 0 <=0 /100 WBCs 04/30/2023 10:52 PM EDT [facility] Blood Venous blood specimen / Unknown Venipuncture / Unknown 04/30/2023 1:59 PM EDT 04/30/2023 2:02 PM EDT Carson Sol MD LAB BLOOD ORDERABL ES Performing Organization Address [facility] Co de Phone Number LABORATORY [facility] [address] [place] [address] * TSH WITH FREE T4 IF INDICATED (04/30/2023 1:59 PM EDT) TSH 0.93 0.27 - 4.20 uIU/mL 05/01/2023 1:50 AM EDT LAB[facility]ATORY [facility] Blood Venous blood specimen / Unknown Venipuncture / Unknown 04/30/2023 1:59 PM EDT 04/30/2023 2:02 PM EDT Carson Sol MD LAB BLOOD ORDERABL ES Performing Organization Address City/[facility] Co de Phone Number LAB[facility]ATORY [facility] [address] [place] [address] documented in this encounter Visit Diagnoses Diagnosis Ambulatory dysfunction- Primary Cold intolerance Other general symptoms Stage 3b chronic kidney disease (HCC) Parkinsonism, unspecified Parkinsonism type (HCC) Peripheral polyneuropathy Unspecified hereditary and idiopathic peripheral neuropathy 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 Care Teams Filler Machine Operator Relationship Specialty Start Date End Date Carson Sol MD [address] [place] [address] PCP - General Family Medicine 01/24/23 documented as of this encounter
--- OUTSIDE RECORDS SUMMARY | 2023-11-02 12:21 | External Medical Summary | Summary of Care ---
Author Name Unknown Organization [facility] Address [address] [place] [address] Phone [phone] Care Team Providers Care Porcelain Turner Name Role Phone Carson Sol MD Primary Care Provider +1- [phone] Reason for Visit * Reason Onset Date Comments Left Message 07/19/2023 Encounter Details Date Type Department Care Team Description 07/19/2023 Warp Picker Telephone [facility] [address] [place] [address] Jennifer Andersen, MARINA [address] [place] [address] Left Message Allergies Active Allergy Reactions Severity Noted Date Comments Bee Stings 06/21/1998 anaphylaxis Sulfa Antibiotics 04/07/1998 hives documented as of this encounter (statuses as of 07/19/2023) Medications Medication Sig Dispensed Refills Start Date [...] as of this encounter (statuses as of 07/19/2023) Active Problems Problem Noted Date Parkinsonism 01/31/2023 [...] as of this encounter (statuses as of 07/19/2023) Resolved Problems Problem Noted Date Resolved Date [...] as of this encounter (statuses as of 07/19/2023) Immunizations Name Administration Dates Next Due Covid-19, [...] Telephone Encounter - Jennifer Andersen RN - 07/19/2023 1:40 PM EDT Follow-up Post Discharge Attempted Phone Call First Attempt Call Outcome Left Voicemail/Message Plan To attempt another outreach Jennifer Andersen RN documented in this encounter Plan of Treatment Upcoming Encounters Date Type Specialty Care Team Description 07/24/2023 Office Visit Family Medicine Lan Sanford MD [address] [place] [address] 11/21/2023 Office Visit Family Medicine Carson Sol MD [address] [place] [address] 12/03/2023 Office Visit Gastroenterology Alexander Benz MD [address] [place] [address] Health Maintenance Due Date Last Done Comments [...] 12/16/2015 LUNG CANCER SCREENING - USE SMARTSET 68430 Completed 11/13/2018, 12/16/2015, 06/27/2015, Additional history exists [...] this encounter Medical Devices Implanted Type Area Cash Checker Device Identifier Shelf Expiration Date Model / Serial / Lot Lens Intraoc 20.5 - [id number] - [id number] Implanted:Qty: 1 on 04/30/2019 by Lazaro Rojas MD at OR [facility] Left: Eye [employer]CH [employer] LOMB 10/31/2023 [id number] / [id number] / Lens Intraoc 20.0 - [id number] - [id number] Implanted:Qty: 1 on 05/14/2019 by Lazaro Rojas MD at OR [facility] Right: Eye BAUSCH & LOMB 01/01/2024 [id number] / [id number] / [id number] documented as of this encounter Advance Directives [...] and were consensually agreed upon. Care Teams Porcelain Turner Relationship Specialty Start Date End Date Carson Sol MD [address] [place] [address] PCP - General Family Medicine 01/24/23 documented as of this encounter
--- OUTSIDE RECORDS SUMMARY | 2023-11-02 12:22 | External Medical Summary | Summary of Care ---
Author Name Unknown Organization [facility] Address [address] [place] [address] Phone [phone] Care Team Providers Care Environmental Professional Name Role Phone Carson Sol MD Primary Care Provider +1- [phone] Encounter Details Date Type Department Care Team Description 05/07/2023 Orders Only Outcomes Research Department [address], [place] [id number] Iris Mendez CHRA [facility] Other*[id number] Allergies Active Allergy Reactions Severity Noted Date Comments Bee Stings 06/21/1998 anaphylaxis Sulfa Antibiotics 04/07/1998 hives documented as of this encounter (statuses as of 05/07/2023) Medications Medication Sig Dispensed Refills Start Date [...] as of this encounter (statuses as of 05/07/2023) Active Problems Problem Noted Date Parkinsonism 01/31/2023 [...] as of this encounter (statuses as of 05/07/2023) Resolved Problems Problem Noted Date Resolved Date [...] as of this encounter (statuses as of 05/07/2023) Immunizations Name Administration Dates Next Due Covid-19, [...] Office Visit Nephrology Myron Bailey MD [address] [place] [address] Scheduled Orders Name Type Priority Associated Diagnoses Orde r Schedule MYCODE SUBSEQUENT ADULT Lab Routine [facility] Other*[id number] Every 6 Months for 2 Occurrences starting 05/07/2023 until 05/26/2024 Health Maintenance Due Date Last Done Comments DISCUSS TOBACCO CESSATION (REFER TO SMARTSET #3541) 1943 Albumin/Creatinine Ratio 1961 Hepatitis C Screening [...] 12/16/2015 LUNG CANCER SCREENING - USE SMARTSET 63578 Completed 11/13/2018, 12/16/2015, 06/27/2015, Additional history exists Pneumococcal Vaccine: 65+ Years Completed 10/11/2020, 02/17/2019, 12/13/2016 Zoster Vaccines Completed 08/09/2021, 04/01, 05/03/2010 GARDASIL-HPV IMMUNIZATION SERIES Aged Out No longer eligible based on patient's age to complete this topic MENINGOCOCCAL (MENACTRA/MENVEO) Aged Out No longer eligible based on patient's age to complete this topic documented as of this encounter Medical Devices Implanted Type Area Supervisor Veneer Device Identifier Shelf Expiration Date Model / Serial / Lot Lens Intraoc 20.5 - [id number] - [id number] Implanted:Qty: 1 on 04/30/2019 by Lazaro Rojas MD at OR [facility] Left: Eye BAUSCH [employer] LOMB 10/31/2023 [id number] / [id number] / Lens Intraoc 20.0 - [id number] - [id number] Implanted:Qty: 1 on 05/14/2019 by Lazaro Rojas MD at [facility] Right: Eye BAUSCH [employer] LOMB 01/01/2024 [id number] / [id number] / [id number] documented as of this encounter Visit Diagnoses Diagnosis [facility] Other*[id number] documented in this encounter Advance Directives Latest [...] and were consensually agreed upon. Care Teams Environmental Professional Relationship Specialty Start Date End Date Carson Sol MD [facility] [address] [place], [place] [id number] PCP - General Family Medicine 01/24/23 documented as of this encounter
--- NOTE | 2023-11-02 13:29 | XRay Report ---
XR chest 1V portable CLINICAL HISTORY: Sepsis. COMPARISON STUDY: Chest radiograph July 16, 2023. FINDINGS: Lung volumes are normal. No pneumothorax or pleural effusion is present. Moderate right bas ilar opacity has developed. Left lung is clear. Cardiac size is normal. Mediastinal contours are norm al. No radiographic evidence for pulmonary edema. IMPRESSION: Interval development of moderate right basilar consolidation. This favors pneumonia. How ever, short-term follow-up PA and lateral chest radiograph in one month are recommended to ensure res olution and exclude the possibility of an underlying pulmonary lesion. ACT 112: Positive. There are findings on this exam that require communication between the performing entity and the patient following Patient Test Result Information Act ([place] Act 112) guidelines. Electronically signed by: Efrain Freeman M.D. 11/02/2023 1:28 PM
[2023-11-02 13:32] LABS: Basophils # (auto) 0.01 K/uL (0.00-0.20); Basophils % (auto) 0.1 %; Hematocrit (blood only) 34.5 % (42.0-52.0); Hemoglobin 11.5 g/dl (14.0-18.0); Immature Granulocytes # (auto) 0.03 K/uL (0.01-0.20); Immature Granulocytes % (auto) 0.3 %; Lymphocytes # (auto) 0.53 K/uL (1.20-3.40); Lymphocytes % (auto) 5.9 %; Mean Corpuscular Hemoglobin 29.5 pg (25.0-34.0); Mean Corpuscular Hgb Conc 33.3 g/dL (32.0-36.0); Mean Corpuscular Volume 88.5 fL (80.0-100.0); Mean Platelet Volume 11.4 fL (9.4-12.4); Monocytes # (auto) 0.76 K/uL (0.11-0.59); Monocytes % (auto) 8.4 %; Neutrophils # (auto) 7.69 K/uL (1.40-6.50); Neutrophils % (auto) 85.3 %; Platelet Count 264 K/uL (130-400); RDW Coefficient of Variation 14.7 % (11.5-14.5); RDW Standard Deviation 47.6 fL (36.4-46.3); White Blood Count 9.02 K/ul (4.8-10.8)
[2023-11-02 13:39] LABS: Base Excess VBG 6.3 mEq/L; HCO3 VBG 31 mmol/L; Oxygen Saturation VBG 64.2 %; PCO2 VBG 42 mmHg (38-50); PO2 VBG 39 mmHg; pH VBG 7.47 (7.36-7.41)
[2023-11-02 13:43] LABS: Appearance Urine Clear (Clear); Bacteria Urine Automated Negative (Negative); Bilirubin Urine Negative (Negative); Blood Urine 2+ (Negative); Color Urine Yellow; Glucose Urine UA Negative (Negative); Ketones Urine Negative (Negative); Leukocyte Esterase Urine Negative (Negative); Nitrite Urine Negative (Negative); Protein Urine 2+ (Negative); Specific Gravity Urine 1.013 (1.000-1.030); Urobilinogen Urine Negative (Negative); pH Urine 6.5 (4.5-7.5)
[2023-11-02 13:44] LABS: Albumin Level 3.3 gm/dl (3.4-5.0); BUN Creatinine Ratio 18.3 (10-20); Bilirubin Direct 0.1 mg/dl (0-0.2); Bilirubin,Total 0.7 mg/dl (0.2-1.0); Calcium 9.5 mg/dl (8.6-10.3); Creatinine Clr Calc Pharmacy 22.8 ml/min; Est GFR (African American) 37.5 ml/min; Est GFR (Non-African American) 32.4 ml/min; Magnesium 1.8 mg/dl (1.7-2.4); Potassium 2.8 mmol/L (3.5-5.1); Total Protein 7.4 gm/dl (6.0-8.3)
--- NOTE | 2023-11-02 13:50 | CT Scan Report ---
CT OF THE HEAD WITHOUT CONTRAST CLINICAL HISTORY: Altered mental status. COMPARISON STUDY: MRI of the brain May 26, 2020. Head CT July 16, 2023. CT DOSE: 663.26 mGy.cm TECHNIQUE: Helical axial images of the head were obtained without IV contrast. Automated exposure con trol was utilized for the study. A dose lowering technique was utilized adhering to the principles o f ALARA. FINDINGS: No acute intracranial hemorrhage, midline shift or mass effect is present. White matter hyp odensities are unchanged and suggest small vessel disease. The appearance of the brain is unchanged. The ventricular system is unremarkable. The basal cisterns are patent. No extra-axial collections are present. There are no findings to suggest acute dural sinus thrombosis or acute territorial infarct. No significant calvarial abnormalities are present. Visualized portions of the sinuses and mastoid a ir cells are clear. IMPRESSION: No acute intracranial findings. ACT 112: Negative or not required by law. Electronically signed by: Efrain Freeman M.D. 11/02/2023 1:48 PM
[2023-11-02 13:51] LABS: Troponin I High Sensitivity 23.3 pg/ml (0-20)
[2023-11-02 13:53] LABS: Partial Thromboplastin Ratio 1.2; Prothrombin Time 11.4 Seconds (9.0-12.0)
[2023-11-02] MEDS ORDERED: PIPERACILLIN/TAZOBACTAM 4.5 GM/120 ML BAG IV ONE (14:16)
[2023-11-02] MEDS ORDERED: VANCOMYCIN CONSULT ACTIVE PRN (14:16)
[2023-11-02] MEDS ORDERED: VANCOMYCIN HCL 1,000 MG in SODIUM CHLORIDE 0.9% 500 ML IV ONE (14:16)
[2023-11-02] MEDS: POTASSIUM CHLORIDE / WTR 10 MEQ/100 ML PLCT IV SCH ×6 (14:55→22:51)
[2023-11-02 15:04] LABS: Adenovirus PCR Not Detected (NotDetected); Bordetella parapertussis PCR Not Detected (NotDetected); Bordetella pertussis PCR Not Detected (NotDetected); Chlamydia pneumoniae PCR Not Detected (NotDetected); Coronavirus 229E PCR Not Detected (NotDetected); Coronavirus HKU1 PCR Not Detected (NotDetected); Coronavirus NL63 PCR Not Detected (NotDetected); Coronavirus OC43PCR Not Detected (NotDetected); Human Metapneumovirus PCR Not Detected (NotDetected); Influenza A PCR Not Detected (NotDetected); Influenza B PCR Not Detected (NotDetected); Mycoplasma pneumoniae PCR Not Detected (NotDetected); Parainfluenza Virus 1 PCR Not Detected (NotDetected); Parainfluenza Virus 2 PCR Not Detected (NotDetected); Parainfluenza Virus 3 PCR Not Detected (NotDetected); Parainfluenza Virus 4 PCR Not Detected (NotDetected); Respiratory Syncytial VirusPCR Not Detected (NotDetected); Rhinovirus/Enterovirus PCR Not Detected (NotDetected)
[2023-11-02 15:06] LABS: Coronavirus CoV-2 (COVID19)PCR DETECTED (NotDetected)
--- NOTE | 2023-11-02 15:53 | History & Physical Report ---
Date of Service November 02, 2023 Assessment & Plan (1) COVID-19: (2) Altered mental status: (3) Generalized weakness: (4) Hypokalemia: (5) History of colon cancer: (6) History of prostate cancer: (7) HTN (hypertension): (8) CKD (chronic kidney disease), stage II: Plan: COVID-19 Pneumonia Hypoxia Generalized weakness - COVID-19 positive - Procalcitonin and CRP pending - WBC of 9.02 - CXR reviewed: Interval development of moderate right basilar consolidation. This favors pneumonia. - O2 sats per EMS were in the mid-low 80s, upon arrival here pt was 91% and placed on 2L via NC - Remdesivir 200 mg IV x 1 then 100 mg daily therafter, decadron 6 mg IV daily. - reports having viral symptoms since last saturday, pt is vaccinated - PT/OT consult Hypokalemia -Replaced with IV. Trend with a.m. labs, mag and Phos are WNL on admission CKD stage III -Chronic, stable, creatinine 1.91 on admission, baseline around 2 Parkinson's Dementia -Continue carbidopa levodopa, Remeron at bedtime -Patient is unable to get himself dressed, is able to feed himself, but requires significant assistance by who is his primary caregiver at home DVT PPx: teds, scds FEN/GI: Regular diet, easy to chew Lines: 2 PIV CODE: DNR/DNI Dispo: From home, likely to remain in the hospital x 1-2 days Please refer to attending addendum for additions, clarifications and physical exam as I did not see the patient in person due to being COVID-19 positive, HPI was obtained by the via phone. History of Present Illness Chief Complaint: Confusion, hypoxia Primary Care Provider: Tina Romo, This is an 78 yo M with PMHx of hypertension, hyperlipidemia, PVD, TIA, mild aortic stenosis, Parkinson's disease, dementia, CRI (baseline creatinine 2 ), mood disorder, Crohn's disease, ileal cancer status post surgery, GERD, prostate cancer status post surgery, left renal mass possible malignancy, chronic anemia (baseline hemoglobin of 12), ongoing tobacco abuse, who presents to the hospital with progressive weakness. supplies the history as pt has dementia, and states that he developed symptoms today Normally he walks with a walker, but today could barely stand up. She did not notice any other symptoms than this today. He took his medications last yesterday. Pts appetite has been progressively worse with dementia progressing. In regards to his dementia pt is not oriented to time or date, he cannot dress himself, and is his primary caregiver. She is shocked to hear that he is vovid positive, but admits to viral symptoms personally and currently with laryngitis where she has difficulty speaking. Her symptoms started last Saturday and she was encouraged to wear a mask, wash hands, and to tell close contacts. Pt has children who do come to help them with some ADLs throughout the week. Allergies Allergy/AdvReac Type Severity Reaction Status Date / Time Sulfa (Sulfonamide Allergy Intermediate HIVES Verified 11/02/23 14:54 Antibiotics) Home Medications Medication Instructions Recorded Confirmed Type carvedilol 3.125 mg tablet 3.125 mg PO BID 05/26/20 11/02/23 History cholecalciferol (vitamin D3) 10 800 unit PO DAILY 05/26/20 11/02/23 History mcg (400 unit) capsule cyanocobalamin (vitamin B-12) 5,000 mcg PO DAILY 05/26/20 11/02/23 History 5,000 mcg capsule aspirin 81 mg tablet,delayed 81 mg PO QAM #100 tabs 05/29/20 11/02/23 Rx release amlodipine 5 mg tablet (Norvasc) 5 mg PO QAM #30 tabs 07/18/23 11/02/23 Rx carbidopa 25 mg-levodopa 100 mg 2 tab PO TID 09/26/23 11/02/23 History tablet magnesium 250 mg tablet 250 mg PO DAILY 09/26/23 11/02/23 History ondansetron HCl 4 mg tablet 4 mg PO Q8H PRN nausea and 09/26/23 11/02/23 Rx vomiting #20 tabs gabapentin 300 mg capsule 300 mg PO HS 11/02/23 11/02/23 History Past Med/Surg History Medical History Dementia Parkinsonism Aphasia Tremor Vitamin D deficiency B12 deficiency Tobacco use disorder Peripheral neuropathy Depression Urge incontinence History of colon cancer History of prostate cancer Crohn's disease HTN (hypertension) Surgical History S/P partial colectomy S/P TURP Family History Daughter Cancer Ovarian cancer Other Hypertension Denies family history of Prostate cancer Myocardial infarction Breast cancer Colorectal cancer Social History Smoking Status: Unknown if ever smoked Tobacco Type: Cigarettes Cigarettes Per Day: 1/2 pack; Second Hand Exposure: Yes; Do You Dip or Chew Tobacco: No; Hx Alcohol Use: No Hx Substance Use: No Preferred Language: Lithuanian Communication Ability: Effective Visual Impairment: No Limitations Hearing Ability: Normal Interactive Media Director Required: No Beliefs That Will Affect Care: None marital status: Current Living Situation: Spouse current occupational status: retired Feels Safe at Home: Yes Childhood Exposure to Second-Hand Smoke: Yes Physical Activity Frequency: Does not Exercise Seatbelt Use: always Sunscreen Use: No Assistive Devices: CPAP Review of Systems Review of Systems: Unobtainable due to cognitive status Physical Exam Physical Exam: Please refer to attending addendum for physical exam Results & Data Results & Data Vital Signs (Past 12 Hours) Vital Signs Temp Pulse Resp BP Pulse Ox O2 Del Method O2 Flow Rate 11/02/23 15:00 108/76 93 Nasal Cannula 2 11/02/23 15:00 98 H 26 H 88 L Room Air 11/02/23 14:55 104 H 27 H 116/80 90 Room Air 11/02/23 14:30 96 H 26 H 92 11/02/23 14:20 97 H 31 H 11/02/23 14:10 105 H 27 H 11/02/23 14:00 98 H 28 H 11/02/23 13:50 95 H 27 H 11/02/23 13:45 106 H 24 11/02/23 13:30 91 H 27 H 11/02/23 13:20 99 H 27 H 11/02/23 13:10 103 H 30 H 11/02/23 13:00 96 H 27 H 11/02/23 12:50 100 H 21 94 11/02/23 12:40 90 25 H 92 11/02/23 12:30 97 H 17 91 11/02/23 12:26 144/96 H 11/02/23 12:26 98 H 25 H 91 11/02/23 12:25 107 H 11/02/23 11:57 36.7 C 101 H 15 144/96 H 92 Room Air Laboratory Results 11/02/23 14:30 Aerobic Blood Culture - Pending Blood Anaerobic Blood Culture - Pending 11/02/23 13:25 Aerobic Blood Culture - Pending Blood Anaerobic Blood Culture - Pending 11/02/23 11/02/23 11/02/23 14:35 13:21 12:37 WBC 9.02 RBC 3.90 L Hgb 11.5 L Hct 34.5 L MCV 88.5 MCH 29.5 MCHC 33.3 RDW Std Deviation 47.6 H RDW Coeff of Ruiz 14.7 H Plt Count 264 MPV 11.4 Immature Gran % (Auto) 0.3 Neut % (Auto) 85.3 Lymph % (Auto) 5.9 Power % (Auto) 8.4 Eos % (Auto) 0.0 Baso % (Auto) 0.1 Neut # (Auto) 7.69 H Lymph # (Auto) 0.53 L Power # (Auto) 0.76 H Eos # (Auto) 0.00 Baso # (Auto) 0.01 Immature Gran # (Auto) 0.03 PT 11.4 INR 1.0 APTT 35.0 H PTT Ratio 1.2 VBG pH 7.47 H VBG pCO2 42 VBG pO2 39 VBG HCO3 31 VBG O2 Saturation 64.2 VBG Base Excess 6.3 Sodium 136 Potassium 2.8 L Chloride 98 Carbon Dioxide 29 Anion Gap 9 BUN 35 H Creatinine 1.91 H Est Cr Clr Drug Dosing 22.8 Est GFR ( Amer) 37.5 Est GFR (Non-Af Amer) 32.4 BUN/Creatinine Ratio 18.3 Glucose 100 H Lactate 0.9 Calcium 9.5 Magnesium 1.8 Total Bilirubin 0.7 Direct Bilirubin 0.1 AST 20 ALT 9 Alkaline Phosphatase 76 Troponin I High Sens 25.4 H 23.3 H Total Protein 7.4 Albumin 3.3 L Procalcitonin 0.09 Urine Color Yellow Urine Appearance Clear Urine pH 6.5 Ur Specific Bon[place]arte 1.013 Urine Protein 2+ H Urine Glucose (UA) Negative Urine Ketones Negative Urine Blood 2+ H Urine Nitrite Negative Urine Bilirubin Negative Urine Urobilinogen Negative Ur Leukocyte Esterase Negative Urine WBC (Auto) 1-5 Urine RBC (Auto) 10-30 H U Hyaline Cast (Auto) 1-5 U Epithel Cells (Auto) 10-20 H Urine Bacteria (Auto) Negative Adenovirus (PCR) Not Detected B. pertussis DNA (PCR) Not Detected B.parapertussis DNA PCR Not Detected C. pneumoniae DNA (PCR) Not Detected Coronavirus OC43 (PCR) Not Detected Coronavirus HKU1 (PCR) Not Detected Coronavirus 229E (PCR) Not Detected SARS-CoV-2 (PCR) DETECTED A* Coronavirus NL63 (PCR) Not Detected Human Metapneumovir PCR Not Detected Influenza Type A (PCR) Not Detected Influenza Type B (PCR) Not Detected M. pneumoniae (PCR) Not Detected Parainfluenza 1 (PCR) Not Detected Parainfluenza 2 (PCR) Not Detected Parainfluenza 3 (PCR) Not Detected Parainfluenza 4 (PCR) Not Detected RSV (PCR) Not Detected Entero/Rhino (PCR) Not Detected Diagnostic Findings Chest X-Ray 11/02/23 12:54 XR chest 1V portable CLINICAL HISTORY: Sepsis. COMPARISON STUDY: Chest radiograph July 16, 2023. FINDINGS: Lung volumes are normal. No pneumothorax or pleural effusion is present. Moderate right basilar opacity has developed. Left lung is clear. Cardiac size is normal. Mediastinal contours are normal. No radiographic evidence for pulmonary edema. IMPRESSION: Interval development of moderate right basilar consolidation. This favors pneumonia. However, short-term follow-up PA and lateral chest radiograph in one month are recommended to ensure resolution and exclude the possibility of an underlying pulmonary lesion. ACT 112: Positive. There are findings on this exam that require communication between the performing entity and the patient following Patient Test Result Information Act ([place] Act 112) guidelines. Electronically signed by: Efrain Freeman M.D. 11/02/2023 1:[address] 11/02/23 12:54 CT OF THE HEAD WITHOUT CONTRAST CLINICAL HISTORY: Altered mental status. COMPARISON STUDY: MRI of the brain May 26, 2020. Head CT July 16, 2023. CT DOSE: 663.26 mGy.cm TECHNIQUE: Helical axial images of the head were obtained without IV contrast. Automated exposure control was utilized for the study. A dose lowering technique was utilized adhering to the principles of ALARA. FINDINGS: No acute intracranial hemorrhage, midline shift or mass effect is present. White matter hypodensities are unchanged and suggest small vessel disease. The appearance of the brain is unchanged. The ventricular system is unremarkable. The basal cisterns are patent. No extra-axial collections are present. There are no findings to suggest acute dural sinus thrombosis or acute territorial infarct. No significant calvarial abnormalities are present. Visualized portions of the sinuses and mastoid air cells are clear. IMPRESSION: No acute intracranial findings. ACT 112: Negative or not required by law. Electronically signed by: Efrain Freeman M.D. 11/02/2023 1:48 PM ECG Additional Comments: Regular rhythm, rate 99, no ST wave inversions or signs of ischemia-personally reviewed QTc is prolonged at 518 Code Status & VTE Plan Code Status DNR/DNI -discussed with the patient's via phone VTE Prophylaxis Plan VTE Prophylaxis will be ordered: Yes Supervising Physician Co-Signing Physician Notes Patient is an 78-year-old male with history of Parkinson's dementia, CKD, Crohn's disease, hypertension and other comorbidities presents with history of significant progressive weakness and ambulatory dysfunction. Given history of dementia, most of the history is obtained from patient's . Patient admits to have some cough but denies any expectoration. As per the family, patient had difficulty standing up and ambulating and also noticed that patient has been more confused from his baseline. Patient denied any chest pain, dyspnea, dizziness, nausea, vomiting, abdominal pain. No known history of fever or chills falls. Please review HPI for complete details of presentation. I personally reviewed blood work, imaging studies and EKG available at the time of admission. CT head showed no acute intracranial abnormality. Chest x-ray suggestive of moderate right basilar consolidation. Normal lactate, procalciton in levels. Mild troponin elevation noted. Creatinine is at baseline. Physical Exam: Vitals signs as noted above General Appearance: Thin, frail, chronically appearing, cachexia Head: normocephalic, Atraumatic Eyes: normal inspection, EOMI Neck: supple, Trachea midline Respiratory/Chest: Decreased breath sounds, scant rhonchi No accessory muscle use Cardiovascular: S1, S2, No murmur Abdomen/GI:Soft, Non tender, Bowel sounds present Extremities/Musculoskeletal:normal inspection, no edema Neurologic/Psych:AAOX2, grossly no focal neurological deficits, follows simple commands, repetitive oral movements Skin: normal color, warm COVID-19 pneumonia Possible sepsis Mild troponin elevation secondary to above Generalized weakness Ambulatory dysfunction Hypokalemia Started on remdesivir, dexamethasone Also started on antibiotics given Possible aspiration Nebs as needed, flutter valve Aspiration precautions Speech therapy evaluation Replace electrolytes as needed Fall precautions PT OT as able I personally reviewed the record. Patient is interviewed and examined at bedside. Patient's care is coordinated with Ama Oden PA-C. Please refer to the documentation above for details of patient's presentation and for discussion of other issues.
[2023-11-02] MEDS ORDERED: dexAMETHasone**PF** 10 MG/ML VIAL IV ONE (16:00)
--- NOTE | 2023-11-02 16:00 | Emergency Department Note ---
History of Present Illness General Chief complaint: Illness Time Seen by Provider: 11/02/23 12:54 Source: EMS and RN notes reviewed History of Present Illness Provider complaint: Difficulty breathing weakness 78-year-old male with history of dementia and Parkinson's presents emergency department with difficulty breathing and weakness. EMS reported that the patient's was concerned that he was more confused than normal and was having difficulty breathing so they brought him to the emergency department. No reported falls or fevers. Home Medications Medication Instructions Recorded Confirmed Type carvedilol 3.125 mg tablet 3.125 mg PO BID 05/26/20 11/02/23 History cholecalciferol (vitamin D3) 10 800 unit PO DAILY 05/26/20 11/02/23 History mcg (400 unit) capsule cyanocobalamin (vitamin B-12) 5,000 mcg PO DAILY 05/26/20 11/02/23 History 5,000 mcg capsule aspirin 81 mg tablet,delayed 81 mg PO QAM #100 tabs 05/29/20 11/02/23 Rx release amlodipine 5 mg tablet (Norvasc) 5 mg PO QAM #30 tabs 07/18/23 11/02/23 Rx gabapentin 300 mg capsule 300 mg PO BID #60 caps 07/18/23 11/02/23 Rx carbidopa 25 mg-levodopa 100 mg 2 tab PO TID 09/26/23 11/02/23 History tablet magnesium 250 mg tablet 250 mg PO DAILY 09/26/23 11/02/23 History ondansetron HCl 4 mg tablet 4 mg PO Q8H PRN nausea and 09/26/23 11/02/23 Rx vomiting #20 tabs mirtazapine 15 mg tablet (Remeron) 15 mg PO HS 11/02/23 11/02/23 History Allergies Allergy/AdvReac Type Severity Reaction Status Date / Time Sulfa (Sulfonamide Allergy Intermediate HIVES Verified 11/02/23 14:54 Antibiotics) Past Med/Surg History Medical History Dementia Parkinsonism Aphasia Tremor Vitamin D deficiency B12 deficiency Tobacco use disorder Peripheral neuropathy Depression Urge incontinence History of colon cancer History of prostate cancer Crohn's disease HTN (hypertension) Surgical History S/P partial colectomy S/P TURP Family History Daughter Cancer Ovarian cancer Other Hypertension Denies family history of Prostate cancer Myocardial infarction Breast cancer Colorectal cancer Social History Smoking Status: Unknown if ever smoked Tobacco Type: Cigarettes Cigarettes Per Day: 1/2 pack; Second Hand Exposure: Yes; Do You Dip or Chew Tobacco: No; Hx Alcohol Use: No Hx Substance Use: No Preferred Language: Slovak Communication Ability: Effective Visual Impairment: No Limitations Hearing Ability: Normal Audio Visual Facilities Engineer Required: No Beliefs That Will Affect Care: None marital status: Current Living Situation: Spouse current occupational status: retired Feels Safe at Home: Yes Childhood Exposure to Second-Hand Smoke: Yes Physical Activity Frequency: Does not Exercise Seatbelt Use: always Sunscreen Use: No Assistive Devices: CPAP Physical Exam Vital Signs Vital Signs - 24 hr 11/02/23 11:57 11/02/23 12:25 11/02/23 12:26 Temperature 36.7 C Temperature Source Oral Pulse Rate 101 H 107 H 98 H Pulse Rate from SpO2 Sensor 91 H Respiratory Rate 15 25 H Blood Pressure 144/96 H Blood Pressure Mean 112 Pulse Oximetry 92 91 Oxygen Delivery Method Room Air Oxygen Flow Rate Sepsis Recent Fever Within 48 Hours No Sepsis New/Unexplained Change in Mental Status No Sepsis Action Taken by Nursing No Action Required 11/02/23 12:26 11/02/23 12:30 11/02/23 12:40 Temperature Temperature Source Pulse Rate 97 H 90 Pulse Rate from SpO2 Sensor 97 H 88 Respiratory Rate 17 25 H Blood Pressure 144/96 H Blood Pressure Mean 116 Pulse Oximetry 91 92 Oxygen Delivery Method Oxygen Flow Rate Sepsis Recent Fever Within 48 Hours Sepsis New/Unexplained Change in Mental Status Sepsis Action Taken by Nursing 11/02/23 12:50 11/02/23 13:00 11/02/23 13:10 Temperature Temperature Source Pulse Rate 100 H 96 H 103 H Pulse Rate from SpO2 Sensor 98 H Respiratory Rate 21 27 H 30 H Blood Pressure Blood Pressure Mean Pulse Oximetry 94 Oxygen Delivery Method Oxygen Flow Rate Sepsis Recent Fever Within 48 Hours Sepsis New/Unexplained Change in Mental Status Sepsis Action Taken by Nursing 11/02/23 13:20 11/02/23 13:30 11/02/23 13:45 Temperature Temperature Source Pulse Rate 99 H 91 H 106 H Pulse Rate from SpO2 Sensor Respiratory Rate 27 H 27 H 24 Blood Pressure Blood Pressure Mean Pulse Oximetry Oxygen Delivery Method Oxygen Flow Rate Sepsis Recent Fever Within 48 Hours Sepsis New/Unexplained Change in Mental Status Sepsis Action Taken by Nursing 11/02/23 13:50 11/02/23 14:00 11/02/23 14:10 Temperature Temperature Source Pulse Rate 95 H 98 H 105 H Pulse Rate from SpO2 Sensor Respiratory Rate 27 H 28 H 27 H Blood Pressure Blood Pressure Mean Pulse Oximetry Oxygen Delivery Method Oxygen Flow Rate Sepsis Recent Fever Within 48 Hours Sepsis New/Unexplained Change in Mental Status Sepsis Action Taken by Nursing 11/02/23 14:20 11/02/23 14:30 11/02/23 14:55 Temperature Temperature Source Pulse Rate 97 H 96 H 104 H Pulse Rate from SpO2 Sensor 93 H 83 Respiratory Rate 31 H 26 H 27 H Blood Pressure 116/80 Blood Pressure Mean 92 Pulse Oximetry 92 90 Oxygen Delivery Method Room Air Oxygen Flow Rate Sepsis Recent Fever Within 48 Hours Sepsis New/Unexplained Change in Mental Status Sepsis Action Taken by Nursing 11/02/23 15:00 11/02/23 15:00 Temperature Temperature Source Pulse Rate 98 H Pulse Rate from SpO2 Sensor 89 Respiratory Rate 26 H Blood Pressure 108/76 Blood Pressure Mean 83 Pulse Oximetry 88 L 93 Oxygen Delivery Method Room Air Nasal Cannula Oxygen Flow Rate 2 Sepsis Recent Fever Within 48 Hours Sepsis New/Unexplained Change in Mental Status Sepsis Action Taken by Nursing Physical Exam EYES: Conjunctivae and EOM are normal. Pupils are equal, round, and reactive to light. Right eye exhibits no discharge. Left eye exhibits no discharge. No scleral icterus. NECK: Normal range of motion. Neck supple. No JVD present. CV: Normal rate, regular rhythm, normal heart sounds and intact distal pulses. There is no peripheral edema. Palpable radial pulses bue. PULM/CHEST: Rhonchi bilaterally. ABD: The abdomen is soft. NEURO: Mild tremor. Patient is only able to answer yes and no to questions asked. Course Course 1254: The patient was evaluated in room B9. A complete history and physical exam was performed Cardiac monitoring: An order was placed for continuous cardiac monitoring. The monitor shows a rate of 90 with sinus rhythm interpreted by me 1600: Patient became hypoxic on room air supplemental oxygen applied which improved the patient's oxygen saturation. Labs within normal limits with exception of potassium of 2.8. Potassium repletion started the emergency department. Creatinine at baseline. High-sensitivity troponin 23.3. Chest x- ray shows right-sided pneumonia. Patient is COVID-positive. Patient treated with Zosyn as patient is at risk for aspiration given his Parkinson's and dementia. Decadron ordered for the patient as he is COVID-positive and now hypoxic. Patient will be admitted to the [facility] team spoke with [address] Prieto Administered Medications Vancomycin HCl 1,000 mg/ (Sodium Chloride) 520 mls @ 200 mls/hr IV NOW ONE Stop: 11/02/23 16:51 Last Admin: 11/02/23 14:55 Dose: 200 mls/hr Documented By: ARS Potassium Chloride (K Berto / Wtr) 10 meq in 100 mls @ 100 mls/hr IV Q1H PETER Stop: 11/02/23 16:29 Last Infusion: 11/02/23 15:19 Dose: Infused Documented By: Admin: 11/02/23 14:55 Dose: 100 mls/hr Documented By: ARS Discontinued Medications Piperacillin Sod/Tazobactam Sod (Zosyn) 4.5 gm in 120 mls @ 240 mls/hr IV NOW ONE Stop: 11/02/23 14:45 Last Admin: 11/02/23 14:31 Dose: 240 mls/hr Documented By: PEDRO Critical Care Time Critical Care Time: Yes Total Critical Care Time: 43 I have personally spent greater than 43 minutes of critical care time in the direct management of this patient. This includes bedside care, interpretation of diagnostic studies, and testing, discussion with consultants, patient, and family members, and other required patient management activities. This 43 minutes is in excess of all separately billable procedures. Medical Decision Making Laboratory Data Attestation: I reviewed the patient's lab results. 11/02/23 12:37 11/02/23 12:37 Lab Results 11/02/23 11/02/23 11/02/23 Range/Units 12:37 13:21 14:35 WBC 9.02 (4.8-10.8) K/ul RBC 3.90 L (4.70-6.10) M/uL Hgb 11.5 L (14.0-18.0) g/dl Hct 34.5 L (42.0-52.0) % MCV 88.5 (80.0-100.0) fL MCH 29.5 (25.0-34.0) pg MCHC 33.3 (32.0-36.0) g/dL RDW Std Deviation 47.6 H (36.4-46.3) fL RDW Coeff of Ruiz 14.7 H (11.5-14.5) % Plt Count 264 (130-400) K/uL MPV 11.4 (9.4-12.4) fL Immature Gran % (Auto) 0.3 % Neut % (Auto) 85.3 % Lymph % (Auto) 5.9 % Garrett % (Auto) 8.4 % Eos % (Auto) 0.0 % Baso % (Auto) 0.1 % Neut # (Auto) 7.69 H (1.40-6.50) K/uL Lymph # (Auto) 0.53 L (1.20-3.40) K/uL Garrett # (Auto) 0.76 H (0.11-0.59) K/uL Eos # (Auto) 0.00 (0.00-0.50) K/uL Baso # (Auto) 0.01 (0.00-0.20) K/uL Immature Gran # (Auto) 0.03 (0.01-0.20) K/uL PT 11.4 (9.0-12.0) Seconds INR 1.0 (0.9-1.1) APTT 35.0 H (21.0-31.0) Seconds PTT Ratio 1.2 VBG pH 7.47 H (7.36-7.41) VBG pCO2 42 (38-50) mmHg VBG pO2 39 mmHg VBG HCO3 31 mmol/L VBG O2 Saturation 64.2 % VBG Base Excess 6.3 mEq/L Sodium 136 (136-145) mmol/L Potassium 2.8 L (3.5-5.1) mmol/L Chloride 98 (98-107) mmol/L Carbon Dioxide 29 (21-32) mmol/L Anion Gap 9 (3-11) BUN 35 H (6-23) mg/dl Creatinine 1.91 H (0.6-1.4) mg/dl Est Cr Clr Drug Dosing 22.8 ml/min Est GFR ( Amer) 37.5 ml/min Est GFR (Non-Af Amer) 32.4 ml/min BUN/Creatinine Ratio 18.3 (10-20) Glucose 100 H (70-99(Fasting)) mg/dl Lactate 0.9 (0.4-2.0) mmol/L Calcium 9.5 (8.6-10.3) mg/dl Magnesium 1.8 (1.7-2.4) mg/dl Total Bilirubin 0.7 (0.2-1.0) mg/dl Direct Bilirubin 0.1 (0-0.2) mg/dl AST 20 (13-39) U/L ALT 9 (7-52) U/L Alkaline Phosphatase 76 (34-104) U/L Troponin I High Sens 23.3 H 25.4 H (0-20) pg/ml Total Protein 7.4 (6.0-8.3) gm/dl Albumin 3.3 L (3.4-5.0) gm/dl Procalcitonin 0.09 (0-0.5) ng/ml Urine Color Yellow Urine Appearance Clear (Clear) Urine pH 6.5 (4.5-7.5) Ur Specific [place] 1.013 (1.000-1.030) Urine Protein 2+ H (Negative) Urine Glucose (UA) Negative (Negative) Urine Ketones Negative (Negative) Urine Blood 2+ H (Negative) Urine Nitrite Negative (Negative) Urine Bilirubin Negative (Negative) Urine Urobilinogen Negative (Negative) Ur Leukocyte Esterase Negative (Negative) Urine WBC (Auto) 1-5 (0-5) /hpf Urine RBC (Auto) 10-30 H (0-4) /hpf U Hyaline Cast (Auto) 1-5 (0-5) /lpf U Epithel Cells (Auto) 10-20 H (0-5) /lpf Urine Bacteria (Auto) Negative (Negative) Adenovirus (PCR) Not Detected (NotDetected) B. pertussis DNA (PCR) Not Detected (NotDetected) B.parapertussis DNA PCR Not Detected (NotDetected) C. pneumoniae DNA (PCR) Not Detected (NotDetected) Coronavirus OC43 (PCR) Not Detected (NotDetected) Coronavirus HKU1 (PCR) Not Detected (NotDetected) Coronavirus 229E (PCR) Not Detected (NotDetected) SARS-CoV-2 (PCR) DETECTED A* (NotDetected) Coronavirus NL63 (PCR) Not Detected (NotDetected) Human Metapneumovir PCR Not Detected (NotDetected) Influenza Type A (PCR) Not Detected (NotDetected) Influenza Type B (PCR) Not Detected (NotDetected) M. pneumoniae (PCR) Not Detected (NotDetected) Parainfluenza 1 (PCR) Not Detected (NotDetected) Parainfluenza 2 (PCR) Not Detected (NotDetected) Parainfluenza 3 (PCR) Not Detected (NotDetected) Parainfluenza 4 (PCR) Not Detected (NotDetected) RSV (PCR) Not Detected (NotDetected) Entero/Rhino (PCR) Not Detected (NotDetected) Imaging Data Attestation: I personally reviewed and interpreted this imaging study as follows: My Impression: Right middle lobe infiltrate. Radiologist's Impression: Chest X-Ray 11/02/23 12:54 XR chest 1V portable CLINICAL HISTORY: Sepsis. COMPARISON STUDY: Chest radiograph July 16, 2023. FINDINGS: Lung volumes are normal. No pneumothorax or pleural effusion is present. Moderate right basilar opacity has developed. Left lung is clear. Cardiac size is normal. Mediastinal contours are normal. No radiographic evidence for pulmonary edema. IMPRESSION: Interval development of moderate right basilar consolidation. This favors pneumonia. However, short-term follow-up PA and lateral chest radiograph in one month are recommended to ensure resolution and exclude the possibility of an underlying pulmonary lesion. ACT 112: Positive. There are findings on this exam that require communication between the performing entity and the patient following Patient Test Result Information Act ([place] Act 112) guidelines. Electronically signed by: Efrain Freeman M.D. 11/02/2023 1:[address] 11/02/23 12:54 CT OF THE HEAD WITHOUT CONTRAST CLINICAL HISTORY: Altered mental status. COMPARISON STUDY: MRI of the brain May 26, 2020. Head CT July 16, 2023. CT DOSE: 663.26 mGy.cm TECHNIQUE: Helical axial images of the head were obtained without IV contrast. Automated exposure control was utilized for the study. A dose lowering technique was utilized adhering to the principles of ALARA. FINDINGS: No acute intracranial hemorrhage, midline shift or mass effect is present. White matter hypodensities are unchanged and suggest small vessel disease. The appearance of the brain is unchanged. The ventricular system is unremarkable. The basal cisterns are patent. No extra-axial collections are present. There are no findings to suggest acute dural sinus thrombosis or acute territorial infarct. No significant calvarial abnormalities are present. Visualized portions of the sinuses and mastoid air cells are clear. IMPRESSION: No acute intracranial findings. ACT 112: Negative or not required by law. Electronically signed by: Efrain Freeman M.D. 11/02/2023 1:48 PM ECG Data Attestation: I personally reviewed and interpreted this ECG as follows: Indication: + SOB/dyspnea Rate (beats per minute): 99 Rhythm: + normal sinus ECG ST segments: + Normal ST segments Additional Comments: VT 160 QRS 88 QTc 518. Baseline artifact and wander. [facility] Narrative 1254: The patient was evaluated in room B9. A complete history and physical exam was performed Cardiac monitoring: An order was placed for continuous cardiac monitoring. The monitor shows a rate of 90 with sinus rhythm interpreted by me 1600: Patient became hypoxic on room air supplemental oxygen applied which improved the patient's oxygen saturation. Labs within normal limits with exception of potassium of 2.8. Potassium repletion started the emergency department. Creatinine at baseline. High-sensitivity troponin 23.3. Chest x- ray shows right-sided pneumonia. Patient is COVID-positive. Patient treated with Zosyn as patient is at risk for aspiration given his Parkinson's and dementia. Decadron ordered for the patient as he is COVID-positive and now hypoxic. Patient will be admitted to the [facility] team spoke with [address] Prieto Impression & Plan Hypoxia, Aspiration pneumonia, COVID-19 Discharge Plan Visit Data Chief Complaint: Illness ED Provider: Maximo Munoz Discharge Problem: Hypoxia, Aspiration pneumonia, COVID-19 Patient Disposition: Admitted As Inpatient Forms Stand Alone Forms: My [facility], Important Visit Information Prescriptions Prescriptions: No Action carbidopa-levodopa 25-100 mg tablet 2 tab PO TID Rx Instructions: PER EXT MED HX--LAST FILLED 02/02/23 FOR 71 DAYS magnesium 250 mg tablet 250 mg PO DAILY ondansetron HCl 4 mg tablet 4 mg PO Q8H PRN (Reason: nausea and vomiting) Qty: 20 0RF carvedilol 3.125 mg tablet 3.125 mg PO BID Rx Instructions: PER EXT MED HX--LAST FILLED 07/22/23 FOR 90 DAYS. cholecalciferol (vitamin D3) 10 mcg (400 unit) Capsule 800 unit PO DAILY cyanocobalamin (vitamin B-12) 5,000 mcg Capsule 5,000 mcg PO DAILY aspirin 81 mg Tablet,Delayed Release (Dr/Ec) 81 mg PO QAM Qty: 100 0RF amlodipine [Norvasc] 5 mg Tablet 5 mg PO QAM Qty: 30 0RF gabapentin 300 mg Capsule 300 mg PO BID Qty: 60 0RF Rx Instructions: PER EXT MED HX--LAST FILLED 07/18/23 FOR 30 DAYS. mirtazapine [Remeron] 15 mg tablet 15 mg PO HS Rx Instructions: PER EXT MED HX--LAST FILLED 09/26/23 FOR 90 DAYS. Referrals Referrals: Tina Romo DO [Primary Care Provider] - Discharge Problem: Aspiration pneumonia Qualifiers: Aspiration pneumonia type: unspecified Laterality: right Lung location: middle lobe of lung Qualified Code(s): J69.0 - Pneumonitis due to inhalation of food and vomit
[2023-11-02] MEDS ORDERED: REMDESIVIR 200 MG in SODIUM CHLORIDE 0.9% 210 ML IV ONE (17:00)
[2023-11-02] MEDS ORDERED: REMDESIVIR 200 MG in SODIUM CHLORIDE 0.9% 210 ML IV STA (17:50)
[2023-11-02] MEDS ORDERED: ACETAMINOPHEN 325 MG TAB PO PRN (17:50)
[2023-11-02] MEDS ORDERED: POLYETHYLENE (MIRALAX) 17 GM PACK PO PRN (17:50)
[2023-11-02] MEDS: dexAMETHasone 6 MG in SYRINGE 0 ML IV SCH (18:32)
[2023-11-02] MEDS: NSS + 20MEQ KCL 20 MEQ/1,000 ML BAG IV SCH (18:47)
[2023-11-02] MEDS: CARBIDOPA/LEVODOPA 25/100MG TAB PO SCH ×2 (18:47→21:34)
[2023-11-02] MEDS ORDERED: ALBUT/IPRATROP 3MG/0.5MG NEB 3 ML VIAL NEB PRN (19:20)
[2023-11-02 21:04] LABS: BUN Creatinine Ratio 18.9 (10-20); Calcium 8.8 mg/dl (8.6-10.3); Creatinine Clr Calc Pharmacy 22.9 ml/min; Est GFR (African American) 37.7 ml/min; Est GFR (Non-African American) 32.6 ml/min; Potassium 3.5 mmol/L (3.5-5.1)
[2023-11-02] MEDS: PIPERACILLIN/TAZOBACTAM 4.5 GM in DEXTROSE 5% MINI-B 100 ML IV SCH ×2 (21:25→21:41)
[2023-11-02] MEDS: DOXYCYCLINE HYCLATE 100 MG CAP PO SCH (21:34)
[2023-11-02] MEDS: carvediloL 3.125 MG TAB PO SCH (21:34)
[2023-11-02] MEDS: HEPARIN SOD 5,000 UNIT/0.5 ML VIAL SQ SCH (21:42)
[2023-11-02] MEDS: GABAPENTIN 300 MG CAP PO SCH (21:45)
[2023-11-03] MEDS ORDERED: VANCOMYCIN HCL 500 MG in NSS 100mL IV SCH (02:00)
[2023-11-03] MEDS ORDERED: SODIUM CHLORIDE 0.9% 500 ML IV ONE (03:33)
[2023-11-03 04:57] LABS: Basophils # (auto) 0.01 K/uL (0.00-0.20); Basophils % (auto) 0.1 %; Hematocrit (blood only) 27.4 % (42.0-52.0); Hemoglobin 9.3 g/dl (14.0-18.0); Immature Granulocytes # (auto) 0.03 K/uL (0.01-0.20); Immature Granulocytes % (auto) 0.4 %; Lymphocytes # (auto) 0.71 K/uL (1.20-3.40); Lymphocytes % (auto) 9.2 %; Mean Corpuscular Hemoglobin 29.7 pg (25.0-34.0); Mean Corpuscular Hgb Conc 33.9 g/dL (32.0-36.0); Mean Corpuscular Volume 87.5 fL (80.0-100.0); Mean Platelet Volume 10.8 fL (9.4-12.4); Monocytes # (auto) 0.43 K/uL (0.11-0.59); Monocytes % (auto) 5.6 %; Neutrophils # (auto) 6.54 K/uL (1.40-6.50); Neutrophils % (auto) 84.7 %; Platelet Count 180 K/uL (130-400); RDW Coefficient of Variation 14.7 % (11.5-14.5); RDW Standard Deviation 47.3 fL (36.4-46.3); Red Blood Count 3.13 M/uL (4.70-6.10); White Blood Count 7.72 K/ul (4.8-10.8)
[2023-11-03 05:12] LABS: Alanine Aminotransferase < 3 U/L (7-52); Albumin Globulin Ratio 0.9 (0.9-2); Albumin Level 2.8 gm/dl (3.4-5.0); Alkaline Phosphatase 54 U/L (34-104); Anion Gap 7 (3-11); Aspartate Aminotransferase 16 U/L (13-39); BUN Creatinine Ratio 20.9 (10-20); Bilirubin,Total 0.5 mg/dl (0.2-1.0); Blood Urea Nitrogen 39 mg/dl (6-23); C Reactive Protein 22.26 mg/dl (0-0.5); Calcium 8.4 mg/dl (8.6-10.3); Carbon Dioxide 25 mmol/L (21-32); Chloride 104 mmol/L (98-107); Creatinine Clr Calc Pharmacy 23.3 ml/min; Est GFR (African American) 38.5 ml/min; Est GFR (Non-African American) 33.2 ml/min; Globulin 3.2 gm/dl (2.5-4.0); Glucose 105 mg/dl (70-99(Fasting)); Magnesium 1.7 mg/dl (1.7-2.4); Potassium 4.1 mmol/L (3.5-5.1); Sodium 136 mmol/L (136-145)
[2023-11-03] MEDS: PIPERACILLIN/TAZOBACTAM 4.5 GM in DEXTROSE 5% MINI-B 100 ML IV SCH ×3 (05:49→21:54)
[2023-11-03] MEDS: NSS + 20MEQ KCL 20 MEQ/1,000 ML BAG IV SCH (08:24)
[2023-11-03] MEDS: HEPARIN SOD 5,000 UNIT/0.5 ML VIAL SQ SCH ×2 (08:25→21:57)
[2023-11-03] MEDS: MAGNESIUM OXIDE 400 MG TAB PO SCH (08:25)
[2023-11-03] MEDS: amLODIPine BESYLATE 5 MG TAB PO SCH (08:26)
[2023-11-03] MEDS: CHOLECALCIFEROL 400 UNITS 10 MCG TAB PO SCH (08:26)
[2023-11-03] MEDS: CYANOCOBALAMIN (B-12) 2,500 MCG TABLET PO SCH (08:26)
[2023-11-03] MEDS: CARBIDOPA/LEVODOPA 25/100MG TAB PO SCH ×3 (08:27→21:55)
[2023-11-03] MEDS: DOXYCYCLINE HYCLATE 100 MG CAP PO SCH ×2 (08:27→21:55)
[2023-11-03] MEDS: carvediloL 3.125 MG TAB PO SCH ×2 (08:27→21:55)
[2023-11-03] MEDS: ASPIRIN 81 MG ECTAB PO SCH (08:28)
[2023-11-03] MEDS: dexAMETHasone 6 MG in SYRINGE 0 ML IV SCH (08:30)
--- NOTE | 2023-11-03 08:35 | Hospitalist Progress Note ---
Date of Service November 03, 2023 Assessment & Plan (1) COVID-19: (2) Altered mental status: (3) Generalized weakness: (4) Hypokalemia: (5) History of colon cancer: (6) History of prostate cancer: (7) HTN (hypertension): (8) CKD (chronic kidney disease), stage II: Plan: COVID-19 Pneumonia Hypoxia Generalized weakness - COVID-19 positive - Given procalcitonin is negative, will stop abx at this time. Patient is not septic and would like to avoid increased risk of c-diff infection and GI symptoms. - CXR reviewed: Interval development of moderate right basilar consolidation. This favors pneumonia-likely viral - remains hypoxic with a small oxygen requirement. - continues - evidently infected, also. - PT/OT consult Hypokalemia -resolved after replacement. CKD stage III -Chronic, stable, creatinine 1.91 on admission, baseline around 2 Parkinson's Dementia-chronic, stable. -Continue carbidopa levodopa, Remeron at bedtime -Patient is unable to get himself dressed, is able to feed himself, but requires significant assistance by who is his primary caregiver at home DVT PPx: teds, scds, heparin FEN/GI: Regular diet, easy to chew Lines: 2 PIV CODE: DNR/DNI Dispo: Pending PT/OT evaluations. I spent a total [id number] coordinating, documenting, and providing care for this patient excluding time spent in the performance of separately billed services Admission and Anticipated Discharge Date Admission Date: November 02, 2023 Subjective Patient is an 78-year-old man with history of Parkinson's dementia, Crohn's disease and history of prostate and colon cancers who presents with respiratory symptoms and weakness, found to have COVID-pneumonia. He reports feeling slightly better since admission, receiving steroids and remdesivir with a small oxygen requirement. He still remains rather weak. Denies any pain. He is tolerating p.o. Notable weight loss and he reports significant weight loss over the past couple of months. Physical Exam Physical Exam: CONSTITUTIONAL: cachectic, vitals as above, generally NAD, chronically ill appearing. EYES: normal conjunctivae, no scleral icterus ENT: external ear and nose normal, MMM NECK: trachea midline RESPIRATORY: clear to auscultation bilaterally, no crackles, rales or wheezes, normal respiratory effort CARDIOVASCULAR: regular rate and rhythm, S1 and 2 heard without murmurs, gallops or rubs, no JVD, no peripheral edema, CHEST: inspection of chest was normal GASTROINTESTINAL: soft, nontender, ND, no guarding MUSCULOSKELETAL: strength 5/5 throughout, head is normocephalic and atraumatic SKIN: warm and dry NEUROLOGIC: CN 2-12 grossly intact, no sensory deficit, normal cognition, normal speech, no tremor PSYCHIATRIC: alert cooperative and oriented to person, place and time. Euthymic mood, makes good eye contact, language grossly intact, recent and remote memory grossly intact. Results & Data Results & Data Vital Signs (Past 12 Hours) Vital Signs Temp Pulse Pulse Resp BP BP Pulse Ox 11/03/23 07:19 75 11/03/23 07:00 65 19 96 11/03/23 07:00 95/64 L 11/03/23 06:00 62 14 111/67 99 11/03/23 05:00 76 22 120/72 99 11/03/23 04:00 61 20 117/76 99 11/03/23 03:22 69 16 83/53 L 96 11/03/23 03:00 65 16 82/56 L 94 11/03/23 02:00 59 L 18 122/70 98 11/03/23 01:00 65 20 110/73 98 11/03/23 00:00 63 14 102/70 95 11/02/23 23:38 11/02/23 23:30 71 24 113/68 93 11/02/23 23:00 65 20 112/73 96 11/02/23 22:51 67 11/02/23 22:30 68 20 130/77 97 11/02/23 22:15 64 16 112/73 96 11/02/23 22:00 70 20 126/87 96 11/02/23 21:47 36.8 C 11/02/23 21:30 75 21 102/67 95 11/02/23 21:00 74 22 112/77 95 Pulse Ox O2 Del Method O2 Del Method O2 Flow Rate O2 Flow Rate 11/03/23 07:19 11/03/23 07:00 11/03/23 07:00 11/03/23 06:00 Nasal Cannula 2 11/03/23 05:00 Nasal Cannula 2 11/03/23 04:00 Nasal Cannula 2 11/03/23 03:22 Nasal Cannula 2 11/03/23 03:00 Nasal Cannula 2 11/03/23 02:00 Nasal Cannula 2 11/03/23 01:00 2 11/03/23 00:00 Nasal Cannula 2 11/02/23 23:38 97 Nasal Cannula 2 11/02/23 23:30 2 11/02/23 23:00 2 11/02/23 22:51 11/02/23 22:30 2 11/02/23 22:15 Nasal Cannula 2 11/02/23 22:00 2 11/02/23 21:47 11/02/23 21:30 2 11/02/23 21:00 2 Laboratory Results Short CBC 11/02/23 11/03/23 Range/Units 12:37 04:36 WBC 9.02 7.72 (4.8-10.8) K/ul Hgb 11.5 L 9.3 L (14.0-18.0) g/dl Hct 34.5 L 27.4 L (42.0-52.0) % Plt Count 264 180 (130-400) K/uL BMP 11/02/23 11/02/23 11/03/23 12:37 20:28 04:36 Sodium 136 136 136 Potassium 2.8 L 3.5 D 4.1 Chloride 98 102 104 Carbon Dioxide 29 25 25 BUN 35 H 36 H 39 H Creatinine 1.91 H 1.90 H 1.87 H Glucose 100 H 132 H 105 H Calcium 9.5 8.8 8.4 L Liver Function 11/02/23 11/03/23 Range/Units 12:37 04:36 Total Bilirubin 0.7 0.5 (0.2-1.0) mg/dl Direct Bilirubin 0.1 (0-0.2) mg/dl AST 20 16 (13-39) U/L ALT 9 < 3 L (7-52) U/L Alkaline Phosphatase 76 54 (34-104) U/L Albumin 3.3 L 2.8 L (3.4-5.0) gm/dl Urine 11/02/23 Range/Units 13:21 Urine Color Yellow Urine Appearance Clear (Clear) Urine pH 6.5 (4.5-7.5) Ur Specific [place] 1.013 (1.000-1.030) Urine Protein 2+ H (Negative) Urine Glucose (UA) Negative (Negative) Medications Administered Current Inpatient Medications Acetaminophen (Acetaminophen 325 Mg Tab) 650 mg PO Q4H PRN PRN Reason: Pain or Fever Stop: 12/02/23 17:49 Albuterol (Albut/Ipratrop 3mg/0.5mg Neb 3 Ml Vial) 3 ml NEB Q4R PRN; Protocol PRN Reason: Shortness Of Breath Or Wheezing Stop: 12/02/23 22:59 Amlodipine Besylate (Amlodipine Besylate 5 Mg Tab) 5 mg PO QAM PETER Stop: 12/03/23 08:59 Last Admin: 11/03/23 08:26 Dose: 5 mg Aspirin (Aspirin 81 Mg Ectab) 81 mg PO QAM PETER Stop: 12/03/23 08:59 Last Admin: 11/03/23 08:28 Dose: 81 mg Carbidopa/Levodopa (Carbidopa/Levodopa 25/100mg Tab) 2 tab PO TID PETER Stop: 12/02/23 16:14 Last Admin: 11/03/23 08:27 Dose: 2 tab Carvedilol (Carvedilol 3.125 Mg Tab) 3.125 mg PO BID PETER Stop: 12/02/23 20:59 Last Admin: 11/03/23 08:27 Dose: 3.125 mg Cyanocobalamin (Cyanocobalamin (B-12) 2,500 Mcg Tablet) 5,000 mcg PO DAILY PETER Stop: 12/03/23 08:59 Last Admin: 11/03/23 08:26 Dose: 5,000 mcg Doxycycline Hyclate (Doxycycline Hyclate 100 Mg Cap) 100 mg PO BID PETER Stop: 11/09/23 20:59 Last Admin: 11/03/23 08:27 Dose: 100 mg Gabapentin (Gabapentin 300 Mg Cap) 300 mg PO HS PETER Stop: 12/02/23 20:59 Last Admin: 11/02/23 21:45 Dose: 300 mg Heparin Sodium (Porcine) (Heparin Sod 5,000 Unit/0.5 Ml Vial) 5,000 units SQ Q12 PETER Stop: 12/02/23 20:59 Last Admin: 11/03/23 08:25 Dose: 5,000 units Remdesivir 100 mg/ Sodium (Chloride) 250 mls @ 250 mls/hr IV Q24H PETER Stop: 11/06/23 20:59 Piperacillin Sod/Tazobactam (Sod 4.5 gm/ Dextrose) 100 mls @ 25 mls/hr IV Q8H [facility]; Protocol Stop: 11/09/23 20:29 Last Admin: 11/03/23 05:49 Dose: 25 mls/hr Potassium Chloride/Sodium Chloride (Normal Saline W/20 Meq Kcl) 20 meq in 1,000 mls @ 75 mls/hr IV .[id number] [facility]; Protocol Stop: 11/03/23 20:39 Last Admin: 11/03/23 08:24 Dose: 75 mls/hr Dexamethasone 6 mg/ Syringe 1.5 mls @ 1 mls/min IV DAILY [facility] Stop: 11/12/23 17:59 Last Admin: 11/03/23 08:30 Dose: 1 mls/min Magnesium Oxide (Magnesium Oxide 400 Mg Tab) 400 mg PO DAILY [facility] Stop: 12/03/23 08:59 Last Admin: 11/03/23 08:25 Dose: 400 mg Polyethylene Glycol (Polyethylene (Miralax) 17 Gm Pack) 17 gm PO DAILY PRN PRN Reason: Constipation Stop: 12/02/23 17:49 Vitamin D (Cholecalciferol 400 Units 10 Mcg Tab) 800 units PO DAILY [facility] Stop: 12/03/23 08:59 Last Admin: 11/03/23 08:26 Dose: 800 units
--- NOTE | 2023-11-03 13:08 | Electrocardiogram Report ---
Test Reason : Blood Pressure : / mmHG Vent. Rate : 099 BPM Atrial Rate : 099 BPM P-R Int : 160 ms QRS Dur : 088 ms QT Int : 404 ms P-R-T Axes : 000 046 125 degrees QTc Int : 518 ms Poor data quality, interpretation may be adversely affected Sinus rhythm with Premature atrial complexes Left ventricular hypertrophy with repolarization abnormality ( ) Abnormal ECG When compared with ECG of 16-JUL-2023 03:19, ST no longer depressed in Anterior leads T wave inversion less evident in Inferior leads T wave inversion more evident in Anterior leads QT has lengthened Confirmed by Shaka Dale ([id number]) on 11/03/2023 1:08:05 PM Referred By: REFERRED SELF Confirmed By:Shaka Dale
[2023-11-03] MEDS ORDERED: REMDESIVIR 100 MG in SODIUM CHLORIDE 0.9% 230 ML IV SCH (15:45)
[2023-11-03] MEDS: GABAPENTIN 300 MG CAP PO SCH (21:55)
[2023-11-03] MEDS: REMDESIVIR 100 MG in SODIUM CHLORIDE 0.9% 230 ML IV SCH (21:55)
[2023-11-04] MEDS: PIPERACILLIN/TAZOBACTAM 4.5 GM in DEXTROSE 5% MINI-B 100 ML IV SCH (05:00)
[2023-11-04] MEDS: CYANOCOBALAMIN (B-12) 2,500 MCG TABLET PO SCH (07:44)
[2023-11-04] MEDS: dexAMETHasone 6 MG in SYRINGE 0 ML IV SCH (07:44)
[2023-11-04] MEDS: HEPARIN SOD 5,000 UNIT/0.5 ML VIAL SQ SCH ×2 (07:46→21:52)
[2023-11-04] MEDS: CHOLECALCIFEROL 400 UNITS 10 MCG TAB PO SCH (07:46)
[2023-11-04] MEDS: DOXYCYCLINE HYCLATE 100 MG CAP PO SCH (07:46)
[2023-11-04] MEDS: CARBIDOPA/LEVODOPA 25/100MG TAB PO SCH ×3 (07:46→21:52)
[2023-11-04] MEDS: ASPIRIN 81 MG ECTAB PO SCH (07:46)
[2023-11-04] MEDS: amLODIPine BESYLATE 5 MG TAB PO SCH (07:46)
[2023-11-04] MEDS: MAGNESIUM OXIDE 400 MG TAB PO SCH (07:46)
[2023-11-04] MEDS: carvediloL 3.125 MG TAB PO SCH ×2 (07:47→21:53)
[2023-11-04] MEDS ORDERED: PROMETHAZINE HCL 25 MG TAB PO PRN (07:58)
[2023-11-04 08:55] LABS: Hematocrit (blood only) 27.2 % (42.0-52.0); Hemoglobin 8.9 g/dl (14.0-18.0); Mean Corpuscular Hemoglobin 28.8 pg (25.0-34.0); Mean Corpuscular Hgb Conc 32.7 g/dL (32.0-36.0); Mean Platelet Volume 10.6 fL (9.4-12.4); Platelet Count 184 K/uL (130-400); RDW Coefficient of Variation 14.7 % (11.5-14.5); RDW Standard Deviation 47.6 fL (36.4-46.3); Red Blood Count 3.09 M/uL (4.70-6.10); White Blood Count 7.53 K/ul (4.8-10.8)
[2023-11-04 09:28] LABS: Alanine Aminotransferase < 3 U/L (7-52); Albumin Level 2.5 gm/dl (3.4-5.0); Alkaline Phosphatase 42 U/L (34-104); Anion Gap 7 (3-11); Aspartate Aminotransferase 15 U/L (13-39); BUN Creatinine Ratio 23.9 (10-20); Bilirubin Direct 0.1 mg/dl (0-0.2); Bilirubin,Total 0.5 mg/dl (0.2-1.0); Blood Urea Nitrogen 42 mg/dl (6-23); C Reactive Protein 14.18 mg/dl (0-0.5); Calcium 8.7 mg/dl (8.6-10.3); Carbon Dioxide 24 mmol/L (21-32); Chloride 106 mmol/L (98-107); Creatinine Clr Calc Pharmacy 24.6 ml/min; Est GFR (African American) 41.4 ml/min; Est GFR (Non-African American) 35.7 ml/min; Glucose 105 mg/dl (70-99(Fasting)); Magnesium 1.7 mg/dl (1.7-2.4); Potassium 3.2 mmol/L (3.5-5.1); Sodium 137 mmol/L (136-145); Total Protein 5.6 gm/dl (6.0-8.3)
--- NOTE | 2023-11-04 09:41 | Hospitalist Progress Note ---
Date of Service November 04, 2023 Assessment & Plan (1) COVID-19: (2) Altered mental status: (3) Generalized weakness: (4) Hypokalemia: (5) History of colon cancer: (6) History of prostate cancer: (7) HTN (hypertension): (8) CKD (chronic kidney disease), stage II: Plan: COVID-19 Pneumonia Hypoxia Generalized weakness - COVID-19 positive - Given procalcitonin is negative, will stop abx at this time. Patient is not septic and would like to avoid increased risk of c-diff infection and GI symptoms. - CXR reviewed: Interval development of moderate right basilar consolidation. This favors pneumonia-likely viral - hypoxia resolved. - no need for abx which were stopped. - Transitioned IV steroids to oral. Pt denies side effects. - continues to do well clinically as noted in HPI. - evidently infected, also. - PT/OT consult Weight loss- Will need to look into this further after he is through acute illness. Has h/o colon and prostate cancer per records. Once improved may consider CT c/a/p. Cont current therapy for now and encourage PO intake. [employer]ing Room consult placed. Notably he was seen in Jul 2023 and had a goal for weight gain to >BMI 18.5. BMI is currently 21. CKD stage III -Chronic, stable, creatinine 1.91 on admission, baseline around 2 Parkinson's Dementia-chronic, stable. -Continue carbidopa levodopa, Remeron at bedtime -Patient is unable to get himself dressed, is able to feed himself, but requires significant assistance by who is his primary caregiver at home DVT PPx: teds, scds, heparin FEN/GI: Regular diet, easy to chew Lines: 2 PIV CODE: DNR/DNI Dispo: home with support in the next 2-3 days. I tried to call 's phone for an update but she was not available to answer at this time. Jeanne Carias DO [facility] Hospitalist Admission and Anticipated Discharge Date Admission Date: November 02, 2023 Subjective Patient is an 78-year-old man with history of Parkinson's dementia, Crohn's disease and history of prostate and colon cancers who presents with respiratory symptoms and weakness, found to have COVID-pneumonia. Pt reports overall improvement. He feels less weak today. He is tolerating PO and is now weaned off oxygen. Physical Exam Physical Exam: CONSTITUTIONAL: cachectic, vitals as above, generally NAD, chronically ill appearing. EYES: normal conjunctivae, no scleral icterus ENT: external ear and nose normal, MMM NECK: trachea midline RESPIRATORY: clear to auscultation bilaterally, no crackles, rales or wheezes, normal respiratory effort CARDIOVASCULAR: regular rate and rhythm, S1 and 2 heard without murmurs, gallops or rubs, no JVD, no peripheral edema, CHEST: inspection of chest was normal GASTROINTESTINAL: soft, nontender, ND, no guarding MUSCULOSKELETAL: strength 5/5 throughout, head is normocephalic and atraumatic SKIN: warm and dry NEUROLOGIC: CN 2-12 grossly intact, no sensory deficit, normal cognition, n ormal speech, no tremor PSYCHIATRIC: alert cooperative and oriented to person, place and time. Euthymic mood, makes good eye contact, language grossly intact, recent and remote memory grossly intact. Results & Data Results & Data Vital Signs (Past 12 Hours) Vital Signs Temp Pulse Pulse Resp BP BP Pulse Ox 11/04/23 07:59 11/04/23 07:47 55 L 19 138/80 95 11/04/23 07:13 63 11/04/23 04:59 36.5 C 55 L 18 124/71 98 11/04/23 00:50 36.3 C L 55 L 14 132/78 95 11/04/23 00:48 55 L 11/04/23 00:26 11/03/23 23:00 11/03/23 23:00 53 L 19 117/71 97 11/03/23 22:06 97 Pulse Ox O2 Del Method O2 Del Method 11/04/23 07:59 Room Air 11/04/23 07:47 Room Air 11/04/23 07:13 11/04/23 04:59 Room Air 11/04/23 00:50 Room Air 11/04/23 00:48 11/04/23 00:26 Room Air 11/03/23 23:00 95 Room Air 11/03/23 23:00 Room Air 11/03/23 22:06 Room Air Laboratory Results Short CBC 11/04/23 Range/Units 08:40 WBC 7.53 (4.8-10.8) K/ul Hgb 8.9 L (14.0-18.0) g/dl Hct 27.2 L (42.0-52.0) % Plt Count 184 (130-400) K/uL BMP 11/04/23 08:40 Sodium 137 Potassium 3.2 L D Chloride 106 Carbon Dioxide 24 BUN 42 H Creatinine 1.76 H Glucose 105 H Calcium 8.7 Liver Function 11/04/23 Range/Units 08:40 Total Bilirubin 0.5 (0.2-1.0) mg/dl Direct Bilirubin 0.1 (0-0.2) mg/dl AST 15 (13-39) U/L ALT < 3 L (7-52) U/L Alkaline Phosphatase 42 (34-104) U/L Albumin 2.5 L (3.4-5.0) gm/dl Medications Administered Current Inpatient Medications Acetaminophen (Acetaminophen 325 Mg Tab) 650 mg PO Q4H PRN PRN Reason: Pain or Fever Stop: 12/02/23 17:49 Albuterol (Albut/Ipratrop 3mg/0.5mg Neb 3 Ml Vial) 3 ml NEB Q4R PRN; Protocol PRN Reason: Shortness Of Breath Or Wheezing Stop: 12/02/23 22:59 Amlodipine Besylate (Amlodipine Besylate 5 Mg Tab) 5 mg PO QAM [facility] Stop: 12/03/23 08:59 Last Admin: 11/04/23 07:46 Dose: 5 mg Aspirin (Aspirin 81 Mg Ectab) 81 mg PO QAM [facility] Stop: 12/03/23 08:59 Last Admin: 11/04/23 07:46 Dose: 81 mg Carbidopa/Levodopa (Carbidopa/Levodopa 25/100mg Tab) 2 tab PO TID [facility] Stop: 12/02/23 16:14 Last Admin: 11/04/23 07:46 Dose: 2 tab Carvedilol (Carvedilol 3.125 Mg Tab) 3.125 mg PO BID [facility] Stop: 12/02/23 20:59 Last Admin: 11/04/23 07:47 Dose: Not Given Cyanocobalamin (Cyanocobalamin (B-12) 2,500 Mcg Tablet) 5,000 mcg PO DAILY [facility] Stop: 12/03/23 08:59 Last Admin: 11/04/23 07:44 Dose: 5,000 mcg Dexamethasone (Dexamethasone 4 Mg Tab) 6 mg PO Q24H [facility] Stop: 12/04/23 11:59 Gabapentin (Gabapentin 300 Mg Cap) 300 mg PO HS [facility] Stop: 12/02/23 20:59 Last Admin: 11/03/23 21:55 Dose: 300 mg Heparin Sodium (Porcine) (Heparin Sod 5,000 Unit/0.5 Ml Vial) 5,000 units SQ Q12 [facility] Stop: 12/02/23 20:59 Last Admin: 11/04/23 07:46 Dose: 5,000 units Remdesivir 100 mg/ Sodium (Chloride) 250 mls @ 250 mls/hr IV Q24H [facility] Stop: 11/06/23 20:59 Last Infusion: 11/03/23 23:30 Dose: Infused Magnesium Oxide (Magnesium Oxide 400 Mg Tab) 400 mg PO DAILY [facility] Stop: 12/03/23 08:59 Last Admin: 11/04/23 07:46 Dose: 400 mg Polyethylene Glycol (Polyethylene (Miralax) 17 Gm Pack) 17 gm PO DAILY PRN PRN Reason: Constipation Stop: 12/02/23 17:49 Promethazine HCl (Promethazine Hcl 25 Mg Tab) 25 mg PO Q6H PRN PRN Reason: Nausea And Vomiting Stop: 12/04/23 07:57 Vitamin D (Cholecalciferol 400 Units 10 Mcg Tab) 800 units PO DAILY [facility] Stop: 12/03/23 08:59 Last Admin: 11/04/23 07:46 Dose: 800 units
[2023-11-04] MEDS: POTASSIUM CHLORIDE CRTAB 20 MEQ TABCR PO SCH ×2 (11:21→12:54)
[2023-11-04] MEDS: dexAMETHasone 4 MG TAB PO SCH (11:21)
[2023-11-04] MEDS: POTASSIUM CHLORIDE PWD 20 MEQ PACK PO SCH ×2 (14:37→19:56)
[2023-11-04] MEDS: GABAPENTIN 300 MG CAP PO SCH (21:52)
[2023-11-04] MEDS: REMDESIVIR 100 MG in SODIUM CHLORIDE 0.9% 230 ML IV SCH (21:53)
[2023-11-05 07:12] LABS: Hematocrit (blood only) 25.4 % (42.0-52.0); Hemoglobin 8.5 g/dl (14.0-18.0); Mean Corpuscular Hemoglobin 29.3 pg (25.0-34.0); Mean Corpuscular Hgb Conc 33.5 g/dL (32.0-36.0); Mean Corpuscular Volume 87.6 fL (80.0-100.0); Mean Platelet Volume 11.1 fL (9.4-12.4); Platelet Count 201 K/uL (130-400); RDW Coefficient of Variation 14.7 % (11.5-14.5); RDW Standard Deviation 47.3 fL (36.4-46.3); White Blood Count 6.28 K/ul (4.8-10.8)
[2023-11-05 07:46] LABS: BUN Creatinine Ratio 22.7 (10-20); Calcium 8.8 mg/dl (8.6-10.3); Creatinine Clr Calc Pharmacy 24.6 ml/min; Est GFR (African American) 41.4 ml/min; Est GFR (Non-African American) 35.7 ml/min; Magnesium 1.6 mg/dl (1.7-2.4); Phosphorus 2.2 mg/dl (2.5-4.9); Potassium 3.7 mmol/L (3.5-5.1)
--- NOTE | 2023-11-05 09:27 | Hospitalist Progress Note ---
Date of Service November 05, 2023 Assessment & Plan (1) Pneumonia due to COVID-19 virus: Plan: COVID-19 Pneumonia Hypoxia Generalized weakness - COVID-19 positive - Given procalcitonin is negative, will stop abx at this time. Patient is not septic and would like to avoid increased risk of c-diff infection and GI symptoms. - CXR reviewed: Interval development of moderate right basilar consolidation. This favors pneumonia-likely viral - hypoxia resolved. - no need for abx which were stopped. - Transitioned IV steroids to oral. Pt denies side effects. - continues to do well clinically as noted in HPI. - evidently infected, also. - PT/OT consult-->ok to return home with support (2) Generalized weakness: Plan: 01/03 #1, improved. (3) Hypokalemia: Plan: resolved with replacement. (4) History of colon cancer: (5) History of prostate cancer: (6) HTN (hypertension): (7) Anemia: Plan: chronic, was slowly decreasing on recent trend, however, Hb appears to have improved by 2 grams today. Trend CBC in am. (8) Weight loss: Plan: Chronic weight loss, has a h/o chron's disease with last CSP as noted above. Has h/o colon and prostate cancer per records. Cont current therapy for now and encourage PO intake. Dental Resident consult placed. Notably he was seen in Jul 2023 and had a goal for weight gain to >BMI 18.5. BMI is currently 21. Close outpatient followup of this. (9) CKD (chronic kidney disease), stage III: Plan: -Chronic, stable, creatinine 1.91 on admission, baseline around 2 (10) Parkinsonism: Plan: Parkinson's ? Dementia-chronic, stable. -Continue carbidopa levodopa, Remeron at bedtime -Patient is unable to get himself dressed, is able to feed himself, but requires significant assistance by who is his primary caregiver at home -he appears to be at his baseline and PT has cleared him to return home. DVT PPx: teds, scds, heparin FEN/GI: Regular diet, easy to chew Lines: 2 PIV CODE: DNR/DNI Dispo: home with support in the next 1-2 days Jeanne Carias DO [facility] Admission and Anticipated Discharge Date Admission Date: November 02, 2023 Subjective Patient is an 78-year-old man with history of Parkinson's dementia, Crohn's disease and history of prostate and colon cancers who presents with respiratory symptoms and weakness, found to have COVID-pneumonia. Pt reports overall improvement. He feels less weak today. Reports getting out of bed some more Tolerating PO RN reports patient had several episodes of melena. ASA and hep held Decadron was stopped and pt placed on PPI wtih GI consult placed. Per outpatient record review: -Last CSP 03/16/2022: End to end ileocolonic anastomosis characterized by congestion and ulceration. The entire colon was normal. Diverticulosis in the sigmoid colon and descending colon. Distal rectum and anal verge were normal on retroflexion. -Last EGD: 11/2018 performed for weight loss with results showing a mild ring, small hiatal hernia, Zenker's diverticulum. Physical Exam Physical Exam: CONSTITUTIONAL: cachectic, vitals as above, generally NAD, chronically ill appearing. EYES: normal conjunctivae, no scleral icterus ENT: external ear and nose normal, MMM NECK: trachea midline RESPIRATORY: clear to auscultation bilaterally, no crackles, rales or wheezes, normal respiratory effort CARDIOVASCULAR: regular rate and rhythm, S1 and 2 heard without murmurs, gallops or rubs, no JVD, no peripheral edema, CHEST: inspection of chest was normal GASTROINTESTINAL: soft, nontender, ND, no guarding MUSCULOSKELETAL: strength 5/5 throughout, head is normocephalic and atraumatic SKIN: warm and dry NEUROLOGIC: CN 2-12 grossly intact, no sensory deficit, normal cognition, normal speech, no tremor PSYCHIATRIC: alert cooperative and oriented to person, place and time. Euthymic mood, makes good eye contact, language grossly intact, recent and remote memory grossly intact. Results & Data Results & Data Vital Signs (Past 12 Hours) Vital Signs Temp Pulse Resp BP Pulse Ox Pulse Ox O2 Del Method 11/05/23 07:59 36.3 C L 59 L 20 166/73 H 94 Room Air 11/04/23 23:00 36.5 C 55 L 18 132/77 97 Room Air 11/04/23 23:00 97 O2 Del Method 11/05/23 07:59 11/04/23 23:00 11/04/23 23:00 Room Air Laboratory Results Short CBC 11/05/23 Range/Units 06:38 WBC 6.28 (4.8-10.8) K/ul Hgb 8.5 L (14.0-18.0) g/dl Hct 25.4 L (42.0-52.0) % Plt Count 201 (130-400) K/uL BMP 11/04/23 11/05/23 08:40 06:38 Sodium 137 138 Potassium 3.2 L D 3.7 Chloride 106 108 H Carbon Dioxide 24 24 BUN 42 H 40 H Creatinine 1.76 H 1.76 H Glucose 105 H 108 H Calcium 8.7 8.8 Liver Function 11/04/23 Range/Units 08:40 Total Bilirubin 0.5 (0.2-1.0) mg/dl Direct Bilirubin 0.1 (0-0.2) mg/dl AST 15 (13-39) U/L ALT < 3 L (7-52) U/L Alkaline Phosphatase 42 (34-104) U/L Albumin 2.5 L (3.4-5.0) gm/dl Medications Administered Current Inpatient Medications Acetaminophen (Acetaminophen 325 Mg Tab) 650 mg PO Q4H PRN PRN Reason: Pain or Fever Stop: 12/02/23 17:49 Albuterol (Albut/Ipratrop 3mg/0.5mg Neb 3 Ml Vial) 3 ml NEB Q4R PRN; Protocol PRN Reason: Shortness Of Breath Or Wheezing Stop: 12/02/23 22:59 Amlodipine Besylate (Amlodipine Besylate 5 Mg Tab) 5 mg PO QAM [facility] Stop: 12/03/23 08:59 Last Admin: 11/04/23 07:46 Dose: 5 mg Aspirin (Aspirin 81 Mg Ectab) 81 mg PO QAM [facility] Stop: 12/03/23 08:59 Last Admin: 11/04/23 07:46 Dose: 81 mg Carbidopa/Levodopa (Carbidopa/Levodopa 25/100mg Tab) 2 tab PO TID [facility] Stop: 12/02/23 16:14 Last Admin: 11/04/23 21:52 Dose: 2 tab Carvedilol (Carvedilol 3.125 Mg Tab) 3.125 mg PO BID [facility] Stop: 12/02/23 20:59 Last Admin: 11/04/23 21:53 Dose: Not Given Cyanocobalamin (Cyanocobalamin (B-12) 2,500 Mcg Tablet) 5,000 mcg PO DAILY [facility] Stop: 12/03/23 08:59 Last Admin: 11/04/23 07:44 Dose: 5,000 mcg Dexamethasone (Dexamethasone 4 Mg Tab) 6 mg PO Q24H [facility] Stop: 12/04/23 11:59 Last Admin: 11/04/23 11:21 Dose: 6 mg Gabapentin (Gabapentin 300 Mg Cap) 300 mg PO HS [facility] Stop: 12/02/23 20:59 Last Admin: 11/04/23 21:52 Dose: 300 mg Heparin Sodium (Porcine) (Heparin Sod 5,000 Unit/0.5 Ml Vial) 5,000 units SQ Q12 [facility] Stop: 12/02/23 20:59 Last Admin: 11/04/23 21:52 Dose: 5,000 units Remdesivir 100 mg/ Sodium (Chloride) 250 mls @ 250 mls/hr IV Q24H [facility] Stop: 11/06/23 20:59 Last Infusion: 11/04/23 23:02 Dose: Infused Magnesium Oxide (Magnesium Oxide 400 Mg Tab) 400 mg PO DAILY [facility] Stop: 12/03/23 08:59 Last Admin: 11/04/23 07:46 Dose: 400 mg Polyethylene Glycol (Polyethylene (Miralax) 17 Gm Pack) 17 gm PO DAILY PRN PRN Reason: Constipation Stop: 12/02/23 17:49 Promethazine HCl (Promethazine Hcl 25 Mg Tab) 25 mg PO Q6H PRN PRN Reason: Nausea And Vomiting Stop: 12/04/23 07:57 Vitamin D (Cholecalciferol 400 Units 10 Mcg Tab) 800 units PO DAILY [facility] Stop: 12/03/23 08:59 Last Admin: 11/04/23 07:46 Dose: 800 units
[2023-11-05] MEDS: ASPIRIN 81 MG ECTAB PO SCH (09:32)
[2023-11-05] MEDS: CHOLECALCIFEROL 400 UNITS 10 MCG TAB PO SCH (09:32)
[2023-11-05] MEDS: CYANOCOBALAMIN (B-12) 2,500 MCG TABLET PO SCH (09:32)
[2023-11-05] MEDS: MAGNESIUM OXIDE 400 MG TAB PO SCH (09:32)
[2023-11-05] MEDS: HEPARIN SOD 5,000 UNIT/0.5 ML VIAL SQ SCH (09:32)
[2023-11-05] MEDS: amLODIPine BESYLATE 5 MG TAB PO SCH (09:32)
[2023-11-05] MEDS: CARBIDOPA/LEVODOPA 25/100MG TAB PO SCH ×3 (09:32→20:50)
[2023-11-05] MEDS: carvediloL 3.125 MG TAB PO SCH ×2 (09:45→20:50)
[2023-11-05] MEDS: dexAMETHasone 4 MG TAB PO SCH (13:14)
--- NOTE | 2023-11-05 16:07 | Electrocardiogram Report ---
Test Reason : Blood Pressure : / mmHG Vent. Rate : 066 BPM Atrial Rate : 178 BPM P-R Int : 000 ms QRS Dur : 092 ms QT Int : 406 ms P-R-T Axes : 034 036 079 degrees QTc Int : 425 ms Sinus rhythm with frequent , and consecutive Premature atrial complexes Nonspecific ST and T wave abnormality Abnormal ECG When compared with ECG of 02-NOV-2023 13:10, No significant change Confirmed by Shaka Dale ([id number]) on 11/05/2023 4:06:48 PM Referred By: REFERRED SELF Confirmed By:Shaka Dale
[2023-11-05 18:42] LABS: Hematocrit (blood only) 31.4 % (42.0-52.0); Hemoglobin 10.5 g/dl (14.0-18.0)
[2023-11-05] MEDS: GABAPENTIN 300 MG CAP PO SCH (20:50)
[2023-11-05] MEDS: PANTOprazole 40 MG TAB PO SCH (20:50)
[2023-11-05] MEDS: REMDESIVIR 100 MG in SODIUM CHLORIDE 0.9% 230 ML IV SCH (20:51)
[2023-11-06 07:44] LABS: Hematocrit (blood only) 28.1 % (42.0-52.0); Hemoglobin 9.2 g/dl (14.0-18.0); Mean Corpuscular Hgb Conc 32.7 g/dL (32.0-36.0); Mean Corpuscular Volume 88.6 fL (80.0-100.0); Mean Platelet Volume 11.2 fL (9.4-12.4); Platelet Count 235 K/uL (130-400); RDW Coefficient of Variation 14.7 % (11.5-14.5); RDW Standard Deviation 47.8 fL (36.4-46.3); Red Blood Count 3.17 M/uL (4.70-6.10); White Blood Count 4.48 K/ul (4.8-10.8)
--- NOTE | 2023-11-06 07:44 | Hospitalist Progress Note ---
Date of Service November 06, 2023 Assessment & Plan (1) Pneumonia due to COVID-19 virus: Plan: COVID-19 Pneumonia Hypoxia Generalized weakness - COVID-19 positive - Given procalcitonin is negative, stopped abx. Patient is not septic and would like to avoid increased risk of c-diff infection and GI symptoms. - CXR reviewed: Interval development of moderate right basilar consolidation. This favors pneumonia-likely viral - hypoxia resolved. - no need for abx which were stopped. - Transitioned IV steroids to oral. Pt denies side effects. - continues to do well clinically - evidently infected, also. - PT/OT consult-->ok to return home with support (2) Generalized weakness: Plan: 01/03 #1, improved. (3) Hypokalemia: Plan: resolved with replacement. (4) History of colon cancer: (5) History of prostate cancer: (6) HTN (hypertension): (7) Anemia: Plan: chronic, was slowly decreasing on recent trend, however, Hb appears to have improved by 2 grams. Current Hgb9.2 Poss. GI bleed RN reported patient had several episodes of melena. ASA and hep held Decadron was stopped and pt placed on PPI and GI consult placed. Per outpatient record review: -Last CSP 03/16/2022: End to end ileocolonic anastomosis characterized by congestion and ulceration. The entire colon was normal. Diverticulosis in the sigmoid colon and descending colon. Distal rectum and anal verge were normal on retroflexion. -Last EGD: 11/2018 performed for weight loss with results showing a mild ring, small hiatal hernia, Zenker's diverticulum. Per GI - recommend IV PPI, no plan for endoscopy at this time. Monitor H&H. Obtain stool studies/c. diff if loose stools (8) Weight loss: Plan: Chronic weight loss, has a h/o chron's disease with last CSP as noted above. Has h/o colon and prostate cancer per records. Cont current therapy for now and encourage PO intake. Pickling Machine Operator consult placed. Notably he was seen in Jul 2023 and had a goal for weight gain to >BMI 18.5. BMI is currently 21. Close outpatient followup of this. (9) CKD (chronic kidney disease), stage III: Plan: -Chronic, stable, creatinine 1.91 on admission, baseline around 2 (10) Parkinsonism: Plan: Parkinson's ? Dementia-chronic, stable. -Continue carbidopa levodopa, Remeron at bedtime -Patient is unable to get himself dressed, is able to feed himself, but requires significant assistance by who is his primary caregiver at home -he appears to be at his baseline and PT has cleared him to return home. DVT PPx: teds, scds, heparin FEN/GI: Regular diet, easy to chew CODE: DNR/DNI Dispo: home with support in the next 1-2 days Admission and Anticipated Discharge Date Admission Date: November 02, 2023 Subjective Patient is an 78-year-old man with history of Parkinson's dementia, Crohn's disease and history of prostate and colon cancers who presents with respiratory symptoms and weakness, found to have COVID-pneumonia. Currently laying in bed in NAD. Tolerating PO RN reported patient had several episodes of melena. ASA and hep held Decadron was stopped and pt placed on PPI with GI consult placed. No endoscopy planned - they recommend IV PPI and cont. to monitor. Today pt had BM - brown stool, no blood Review of Systems Review of Systems: All systems reviewed & are unremarkable except as noted in Subjective Physical Exam Physical Exam: CONSTITUTIONAL: cachectic M in NAD, chronically ill appearing. EYES: normal conjunctivae, no scleral icterus ENT: external ear and nose normal, MMM NECK: supple RESPIRATORY: clear to auscultation bilaterally, no crackles, rales or wheezes, normal respiratory effort CARDIOVASCULAR: regular rate and rhythm, S1 and 2 heard without murmurs CHEST: inspection of chest normal GASTROINTESTINAL: soft, nontender, ND, no guarding MUSCULOSKELETAL: strength 5/5 throughout, head is normocephalic and atraumatic SKIN: warm and dry NEURO/PSYCH: alert cooperative and oriented to person, place and time. Euthymic mood, normal speech, no tremor, moves extremities Results & Data Results & Data Vital Signs (Past 12 Hours) Vital Signs Temp Pulse Resp BP Pulse Ox O2 Del Method 11/06/23 07:38 36.4 C L 56 L 14 160/74 H 96 Room Air 11/05/23 23:41 36.7 C 70 18 166/94 H 96 Room Air 11/05/23 20:50 Room Air Laboratory Results 11/06/23 11/05/2323 Range/Units 06:47 18:20 06:38 WBC 4.48 L (4.8-10.8) K/ul RBC 3.17 L (4.70-6.10) M/uL Hgb 9.2 L 10.5 L (14.0-18.0) g/dl Hct 28.1 L 31.4 L (42.0-52.0) % MCV 88.6 (80.0-100.0) fL MCH 29.0 (25.0-34.0) pg MCHC 32.7 (32.0-36.0) g/dL RDW Std Deviation 47.8 H (36.4-46.3) fL RDW Coeff of Ruiz 14.7 H (11.5-14.5) % Plt Count 235 (130-400) K/uL MPV 11.2 (9.4-12.4) fL Sodium Pending 138 (136-145) mmol/L Potassium Pending 3.7 (3.5-5.1) mmol/L Chloride Pending 108 H (98-107) mmol/L Carbon Dioxide Pending 24 (21-32) mmol/L Anion Gap Pending 6 (3-11) BUN Pending 40 H (6-23) mg/dl Creatinine Pending 1.76 H (0.6-1.4) mg/dl Est Cr Clr Drug Dosing Pending 24.6 ml/min Est GFR ( Amer) Pending 41.4 ml/min Est GFR (Non-Af Amer) Pending 35.7 ml/min BUN/Creatinine Ratio Pending 22.7 H (10-20) Glucose Pending 108 H (70-99(Fasting)) mg/dl Calcium Pending 8.8 (8.6-10.3) mg/dl Phosphorus 2.2 L (2.5-4.9) mg/dl Magnesium 1.6 L (1.7-2.4) mg/dl Medications Administered Current Inpatient Medications Acetaminophen (Acetaminophen 325 Mg Tab) 650 mg PO Q4H PRN PRN Reason: Pain or Fever Stop: 12/02/23 17:49 Albuterol (Albut/Ipratrop 3mg/0.5mg Neb 3 Ml Vial) 3 ml NEB Q4R PRN; Protocol PRN Reason: Shortness Of Breath Or Wheezing Stop: 12/02/23 22:59 Amlodipine Besylate (Amlodipine Besylate 5 Mg Tab) 5 mg PO QAM [facility] Stop: 12/03/23 08:59 Last Admin: 11/05/23 09:32 Dose: 5 mg Aspirin (Aspirin 81 Mg Ectab) 81 mg PO QAM [facility] Stop: 12/03/23 08:59 Last Admin: 11/05/23 09:32 Dose: 81 mg Carbidopa/Levodopa (Carbidopa/Levodopa 25/100mg Tab) 2 tab PO TID [facility] Stop: 12/02/23 16:14 Last Admin: 11/05/23 20:50 Dose: 2 tab Carvedilol (Carvedilol 3.125 Mg Tab) 3.125 mg PO BID [facility] Stop: 12/02/23 20:59 Last Admin: 11/05/23 20:50 Dose: 3.125 mg Cyanocobalamin (Cyanocobalamin (B-12) 2,500 Mcg Tablet) 5,000 mcg PO DAILY [facility] Stop: 12/03/23 08:59 Last Admin: 11/05/23 09:32 Dose: 5,000 mcg Gabapentin (Gabapentin 300 Mg Cap) 300 mg PO HS [facility] Stop: 12/02/23 20:59 Last Admin: 11/05/23 20:50 Dose: 300 mg Heparin Sodium (Porcine) (Heparin Sod 5,000 Unit/0.5 Ml Vial) 5,000 units SQ Q12 [facility] Stop: 12/02/23 20:59 Last Admin: 11/05/23 09:32 Dose: 5,000 units Magnesium Oxide (Magnesium Oxide 400 Mg Tab) 400 mg PO DAILY [facility] Stop: 12/03/23 08:59 Last Admin: 11/05/23 09:32 Dose: 400 mg Pantoprazole Sodium (Pantoprazole 40 Mg Tab) 40 mg PO BID [facility] Stop: 12/05/23 20:59 Last Admin: 11/05/23 20:50 Dose: 40 mg Polyethylene Glycol (Polyethylene (Miralax) 17 Gm Pack) 17 gm PO DAILY PRN PRN Reason: Constipation Stop: 12/02/23 17:49 Promethazine HCl (Promethazine Hcl 25 Mg Tab) 25 mg PO Q6H PRN PRN Reason: Nausea And Vomiting Stop: 12/04/23 07:57 Vitamin D (Cholecalciferol 400 Units 10 Mcg Tab) 800 units PO DAILY [facility] Stop: 12/03/23 08:59 Last Admin: 11/05/23 09:32 Dose: 800 units
[2023-11-06 08:01] LABS: BUN Creatinine Ratio 23.5 (10-20); Calcium 9.1 mg/dl (8.6-10.3); Creatinine Clr Calc Pharmacy 26.1 ml/min; Est GFR (African American) 44.4 ml/min; Est GFR (Non-African American) 38.3 ml/min; Potassium 3.7 mmol/L (3.5-5.1)
[2023-11-06] MEDS: CARBIDOPA/LEVODOPA 25/100MG TAB PO SCH ×3 (08:36→22:27)
[2023-11-06] MEDS: PANTOprazole 40 MG TAB PO SCH (08:36)
[2023-11-06] MEDS: carvediloL 3.125 MG TAB PO SCH ×2 (08:37→22:26)
[2023-11-06] MEDS: amLODIPine BESYLATE 5 MG TAB PO SCH (08:38)
[2023-11-06] MEDS: CYANOCOBALAMIN (B-12) 2,500 MCG TABLET PO SCH (08:38)
[2023-11-06] MEDS: MAGNESIUM OXIDE 400 MG TAB PO SCH (08:38)
[2023-11-06] MEDS: CHOLECALCIFEROL 400 UNITS 10 MCG TAB PO SCH (08:39)
--- NOTE | 2023-11-06 11:08 | Gastrointestinal Consultation ---
Date of Consultation November 06, 2023 Assessment & Plan (1) Pneumonia due to COVID-19 virus: (2) Melena: (3) Anemia: (4) Crohn's disease: Plan This is an 78-year-old male with history of Crohn's maintained on Humira, history of colon cancer status post resection, also has Parkinson's dementia, CKD, and other comorbidities, admitted with COVID-19 pneumonia. Had an episode of melena yesterday. Has not had any today. Hemoglobin is lower than baseline but has remained stable, as has his kidney function. On exam today, he has no melena hematochezia or hematemesis, abd soft, nontender. He tolerated an entire breakfast tray, and has no GI complaints. Vital signs are stable. - No plan for GI procedures today - Would recommend IV PPI twice daily Monitor and document GI output - Diet as tolerated Trend H&H, transfuse as needed Continue current medication and supportive care as per primary team - If pt develops diarrhea, with h/o ABX use, would send stool for C diff and GI pathogen testing Thank you for allowing us to participate in the care of this patient. Please call with any acute changes, questions or concerns. Please see addendum below with additional recommendation from my supervising physician. Supervising Physician Co-Signing Physician Notes Agree with pe and plan as documented. Given recent covid +, and no overt bleeding, agree with plan as documented. History of Present Illness Attending Physician: Garth Novak MD History of Present Illness This is an 78 y/o male with PMHx Parkinson's dementia, CKD, Crohn's disease maintained on Humira, history of colon CA (TI adenocarcinoma that was resected), also h/o prostate CA, chronic anemia, renal mass, HTN and others, admitted with COVID PNA, weakness. Was on ABX but now off these. Has improved with regard to his COVID status, and last night was noted to have an episode of dark red/bloody/black stool. No further bleeding today. Pt not a reliable historian; most of history gained from chart and speaking with his nurses. HGB has fluctuated during his stay; between 9-11, currently 9.2, and BUN has also fluctuated; not significantly high today. He did have hypoxia but that resolved He's maintained on RA. He's on oral steroids. Pt is oriented to place, time, but not events. He ate his whole breakfast today; no GI complaints. Denies nausea, vomiting, hematemesis, abd pain, bloating, GERD, dysphagia, syncope, dizziness, leg edema. States his breathing is good; no CP, SOB, fever, chills, Urinating well. No hematuria. Last colonoscopy 03/2022: - The examined portion of the ileum was normal. - End-to-side ileo-colonic anastomosis, characterized by congestion and ulceration. Ileum biopsied - The entire examined colon is normal. Biopsied. - Diverticulosis in the sigmoid colon and in the descending colon. - The distal rectum and anal verge are normal on retroflexion view. Last EGD 2017: - Mild ring. Small hiatal hernia. Zenker's. - Normal stomach. Biopsied. - Normal examined duodenum. Biopsied. Allergies Allergy/AdvReac Type Severity Reaction Status Date / Time Sulfa (Sulfonamide Allergy Intermediate HIVES Verified 11/02/23 14:54 Antibiotics) Home Medications Medication Instructions Recorded Confirmed Type carvedilol 3.125 mg tablet 3.125 mg PO BID 05/26/20 11/02/23 History cholecalciferol (vitamin D3) 10 800 unit PO DAILY 05/26/20 11/02/23 History mcg (400 unit) capsule cyanocobalamin (vitamin B-12) 5,000 mcg PO DAILY 05/26/20 11/02/23 History 5,000 mcg capsule aspirin 81 mg tablet,delayed 81 mg PO QAM #100 tabs 05/29/20 11/02/23 Rx release amlodipine 5 mg tablet (Norvasc) 5 mg PO QAM #30 tabs 07/18/23 11/02/23 Rx carbidopa 25 mg-levodopa 100 mg 2 tab PO TID 09/26/23 11/02/23 History tablet magnesium 250 mg tablet 250 mg PO DAILY 09/26/23 11/02/23 History ondansetron HCl 4 mg tablet 4 mg PO Q8H PRN nausea and 09/26/23 11/02/23 Rx vomiting #20 tabs gabapentin 300 mg capsule 300 mg PO HS 11/02/23 11/02/23 History Patient History Medical History (Updated 11/06/23 @ 11:04 by Nadia R. Jersey, PA-C) Parkinsonism Dementia Aphasia Tremor Vitamin D deficiency B12 deficiency Tobacco use disorder Peripheral neuropathy Depression Urge incontinence History of colon cancer History of prostate cancer Crohn's disease HTN (hypertension) Surgical History S/P partial colectomy S/P TURP Family History Daughter Cancer Ovarian cancer Other Hypertension Denies family history of Prostate cancer Myocardial infarction Breast cancer Colorectal cancer Social History Smoking Status: Current every day smoker Tobacco Type: Cigarettes Cigarettes Per Day: 1/2 pack; Second Hand Exposure: Yes; Do You Dip or Chew Tobacco: No; Hx Alcohol Use: No Hx Substance Use: No Preferred Language: Citizen Of [place] Communication Ability: Effective Visual Impairment: No Limitations Hearing Ability: Normal Orthopedic Technician Required: No Beliefs That Will Affect Care: None marital status: Current Living Situation: Spouse current occupational status: retired Other Information That Helps Us Care for You: No Feels Safe at Home: Yes Safety Concerns: Feels Safe At This Time Childhood Exposure to Second-Hand Smoke: Yes Physical Activity Frequency: Does not Exercise Seatbelt Use: always Sunscreen Use: No Assistive Devices: Cane and Walker Review of Systems Review of Systems: All systems reviewed & are unremarkable except as noted in HPI & below Physical Exam Constitutional: well developed, + frail appearing and comfortable; no acute distress Eyes: Sclera anicteric, no conjunctival injection ENMT: moist mucous membranes, no pallor Neck: trachea midline Respiratory: normal resp effort Cardiovascular: RRR, no murmur, no edema Gastrointestinal (Abdomen): normal bowel sounds, soft, nontender, no hepatosplenomegaly Inspection/Auscultation: abdomen not distended Rectal: Nontender, nonthrombosed external hemorrhoids, no active melena, hematochezia Skin: no rashes, warm and dry Neurologic: alert and oriented x to place, person, but not events, no obvious focal neuro deficit Psychiatric: normal mood and affect Results & Data Vital Signs (Past 12 Hours) Vital Signs Temp Pulse Resp BP Pulse Ox O2 Del Method 11/06/23 10:46 36.4 C L 54 L 14 128/70 96 Room Air 11/06/23 07:38 36.4 C L 56 L 14 160/74 H 96 Room Air 11/05/23 23:41 36.7 C 70 18 166/94 H 96 Room Air Laboratory Results 11/06/23 11/05/23 Range/Units 06:47 18:20 WBC 4.48 L (4.8-10.8) K/ul RBC 3.17 L (4.70-6.10) M/uL Hgb 9.2 L 10.5 L (14.0-18.0) g/dl Hct 28.1 L 31.4 L (42.0-52.0) % MCV 88.6 (80.0-100.0) fL MCH 29.0 (25.0-34.0) pg MCHC 32.7 (32.0-36.0) g/dL RDW Std Deviation 47.8 H (36.4-46.3) fL RDW Coeff of Ruiz 14.7 H (11.5-14.5) % Plt Count 235 (130-400) K/uL MPV 11.2 (9.4-12.4) fL Sodium 138 (136-145) mmol/L Potassium 3.7 (3.5-5.1) mmol/L Chloride 107 (98-107) mmol/L Carbon Dioxide 25 (21-32) mmol/L Anion Gap 6 (3-11) BUN 39 H (6-23) mg/dl Creatinine 1.66 H (0.6-1.4) mg/dl Est Cr Clr Drug Dosing 26.1 ml/min Est GFR ( Amer) 44.4 ml/min Est GFR (Non-Af Amer) 38.3 ml/min BUN/Creatinine Ratio 23.5 H (10-20) Glucose 85 (70-99(Fasting)) mg/dl Calcium 9.1 (8.6-10.3) mg/dl
[2023-11-06] MEDS: PANTOprazole 40 MG in SYRINGE 0 ML IV SCH ×2 (12:23→22:26)
[2023-11-06] MEDS: GABAPENTIN 300 MG CAP PO SCH (22:27)
[2023-11-07 08:33] LABS: Hematocrit (blood only) 27.8 % (42.0-52.0); Hemoglobin 9.4 g/dl (14.0-18.0); Mean Corpuscular Hemoglobin 29.2 pg (25.0-34.0); Mean Corpuscular Hgb Conc 33.8 g/dL (32.0-36.0); Mean Corpuscular Volume 86.3 fL (80.0-100.0); Mean Platelet Volume 10.5 fL (9.4-12.4); Platelet Count 255 K/uL (130-400); RDW Coefficient of Variation 14.7 % (11.5-14.5); RDW Standard Deviation 46.6 fL (36.4-46.3); Red Blood Count 3.22 M/uL (4.70-6.10); White Blood Count 5.28 K/ul (4.8-10.8)
[2023-11-07 08:53] LABS: Est GFR (African American) 42.3 ml/min; Est GFR (Non-African American) 36.5 ml/min; Magnesium 1.4 mg/dl (1.7-2.4); Phosphorus 1.7 mg/dl (2.5-4.9); Potassium 3.3 mmol/L (3.5-5.1)
[2023-11-07] MEDS ORDERED: POTASSIUM CHLORIDE CRTAB 20 MEQ TABCR PO STA (08:58)
[2023-11-07] MEDS ORDERED: MAGNESIUM SULFATE / D5W 1 GM/100 ML BAG IV ONE ×2 (08:58→15:16)
--- NOTE | 2023-11-07 09:00 | Hospitalist Progress Note ---
Date of Service November 07, 2023 Assessment & Plan (1) Pneumonia due to COVID-19 virus: Plan: COVID-19 Pneumonia Hypoxia Generalized weakness - COVID-19 positive - Given procalcitonin is negative, stopped abx. Patient is not septic and would like to avoid increased risk of c-diff infection and GI symptoms. - CXR reviewed: Interval development of moderate right basilar consolidation. This favors pneumonia-likely viral - hypoxia resolved. - no need for abx which were stopped. - Transitioned IV steroids to oral. Pt denies side effects. - continues to do well clinically - evidently infected, also. - PT/OT consult-->ok to return home with support (2) Generalized weakness: Plan: 01/03 #1, improved. (3) Hypokalemia: Plan: resolved with replacement. (4) History of colon cancer: (5) History of prostate cancer: (6) HTN (hypertension): (7) Anemia: Plan: chronic, was slowly decreasing on recent trend, however, Hb appears to have improved by 2 grams. Current Hgb 9.4 -> 8.7 GI bleed RN reported patient had several episodes of melena. ASA and hep held Decadron was stopped and pt placed on PPI and GI consult placed. Per outpatient record review: -Last CSP 03/16/2022: End to end ileocolonic anastomosis characterized by congestion and ulceration. The entire colon was normal. Diverticulosis in the sigmoid colon and descending colon. Distal rectum and anal verge were normal on retroflexion. -Last EGD: 11/2018 performed for weight loss with results showing a mild ring, small hiatal hernia, Zenker's diverticulum. Per GI - recommend IV PPI, no plan for endoscopy at this time. Monitor H&H. Obtain stool studies/c. diff if loose stools 10/08 pt had brown stool w/ small amount of blood. GI notified - no change in management at this time. C. diff is negative. (8) Weight loss: Plan: Chronic weight loss, has a h/o chron's disease with last CSP as noted above. Has h/o colon and prostate cancer per records. Cont current therapy for now and encourage PO intake. Freight Caller consult placed. Notably he was seen in Jul 2023 and had a goal for weight gain to >BMI 18.5. BMI is currently 21. Close outpatient followup of this. (9) CKD (chronic kidney disease), stage III: Plan: -Chronic, stable, creatinine 1.91 on admission, baseline around 2 (10) Parkinsonism: Plan: Parkinson's ? Dementia-chronic, stable. -Continue carbidopa levodopa, Remeron at bedtime -Patient is unable to get himself dressed, is able to feed himself, but requires significant assistance by who is his primary caregiver at home -he appears to be at his baseline and PT has cleared him to return home. DVT PPx: teds, scds, heparin FEN/GI: Regular diet, easy to chew CODE: DNR/DNI Dispo: home with support in the next 1-2 days Admission and Anticipated Discharge Date Admission Date: November 02, 2023 Subjective Patient is an 78-year-old man with history of Parkinson's dementia, Crohn's disease and history of prostate and colon cancers who presents with respiratory symptoms and weakness, found to have COVID-pneumonia. Currently laying in bed in NAD. Tolerating PO RN reported patient had several episodes of melena. ASA and hep held Decadron was stopped and pt placed on PPI with GI consult placed. No endoscopy planned - they recommend IV PPI and cont. to monitor. Today pt had BM brown stool w/ small amount of blood per RN. GI notified. c diff negative. Pt reports to feel well - denies any respiratory issues or abd. pain. Review of Systems Review of Systems: All systems reviewed & are unremarkable except as noted in Subjective Physical Exam Physical Exam: CONSTITUTIONAL: cachectic M in NAD, chronically ill appearing. EYES: normal conjunctivae, no scleral icterus ENT: external ear and nose normal, MMM NECK: supple RESPIRATORY: clear to auscultation bilaterally, no crackles, rales or wheezes, normal respiratory effort CARDIOVASCULAR: regular rate and rhythm, S1 and 2 heard without murmurs CHEST: inspection of chest normal GASTROINTESTINAL: soft, nontender, ND, no guarding MUSCULOSKELETAL: strength 5/5 throughout, head is normocephalic and atraumatic SKIN: warm and dry NEURO/PSYCH: alert cooperative and oriented to person, place and time. Euthymic mood, normal speech, no tremor, moves extremities Results & Data Results & Data Vital Signs (Past 12 Hours) Vital Signs Temp Pulse Resp BP Pulse Ox O2 Del Method 11/07/23 08:31 36.7 C 62 16 156/84 H 98 Room Air 11/06/23 22:43 36.4 C L 74 16 151/93 H 96 Room Air 11/06/23 22:00 Room Air Laboratory Results 11/07/23 Range/Units 08:01 WBC 5.28 (4.8-10.8) K/ul RBC 3.22 L (4.70-6.10) M/uL Hgb 9.4 L (14.0-18.0) g/dl Hct 27.8 L (42.0-52.0) % MCV 86.3 (80.0-100.0) fL MCH 29.2 (25.0-34.0) pg MCHC 33.8 (32.0-36.0) g/dL RDW Std Deviation 46.6 H (36.4-46.3) fL RDW Coeff of Ruiz 14.7 H (11.5-14.5) % Plt Count 255 (130-400) K/uL MPV 10.5 (9.4-12.4) fL Sodium 140 (136-145) mmol/L Potassium 3.3 L (3.5-5.1) mmol/L Chloride 109 H (98-107) mmol/L Carbon Dioxide 25 (21-32) mmol/L Anion Gap 6 (3-11) BUN 38 H (6-23) mg/dl Creatinine 1.73 H (0.6-1.4) mg/dl Est Cr Clr Drug Dosing 25.0 ml/min Est GFR ( Amer) 42.3 ml/min Est GFR (Non-Af Amer) 36.5 ml/min BUN/Creatinine Ratio 22.0 H (10-20) Glucose 74 (70-99(Fasting)) mg/dl Calcium 9.0 (8.6-10.3) mg/dl Phosphorus 1.7 L (2.5-4.9) mg/dl Magnesium 1.4 L (1.7-2.4) mg/dl Medications Administered Current Inpatient Medications Acetaminophen (Acetaminophen 325 Mg Tab) 650 mg PO Q4H PRN PRN Reason: Pain or Fever Stop: 12/02/23 17:49 Albuterol (Albut/Ipratrop 3mg/0.5mg Neb 3 Ml Vial) 3 ml NEB Q4R PRN; Protocol PRN Reason: Shortness Of Breath Or Wheezing Stop: 12/02/23 22:59 Amlodipine Besylate (Amlodipine Besylate 5 Mg Tab) 5 mg PO QAM [facility] Stop: 12/03/23 08:59 Last Admin: 11/06/23 08:38 Dose: 5 mg Aspirin (Aspirin 81 Mg Ectab) 81 mg PO QAM [facility] Stop: 12/03/23 08:59 Last Admin: 11/05/23 09:32 Dose: 81 mg Carbidopa/Levodopa (Carbidopa/Levodopa 25/100mg Tab) 2 tab PO TID [facility] Stop: 12/02/23 16:14 Last Admin: 11/06/23 22:27 Dose: 2 tab Carvedilol (Carvedilol 3.125 Mg Tab) 3.125 mg PO BID [facility] Stop: 12/02/23 20:59 Last Admin: 11/06/23 22:26 Dose: 3.125 mg Cyanocobalamin (Cyanocobalamin (B-12) 2,500 Mcg Tablet) 5,000 mcg PO DAILY [facility] Stop: 12/03/23 08:59 Last Admin: 11/06/23 08:38 Dose: 5,000 mcg Gabapentin (Gabapentin 300 Mg Cap) 300 mg PO HS [facility] Stop: 12/02/23 20:59 Last Admin: 11/06/23 22:27 Dose: 300 mg Heparin Sodium (Porcine) (Heparin Sod 5,000 Unit/0.5 Ml Vial) 5,000 units SQ Q12 [facility] Stop: 12/02/23 20:59 Last Admin: 11/05/23 09:32 Dose: 5,000 units Pantoprazole Sodium 40 mg/ (Syringe) 10 mls @ 5 mls/min IV BID [facility] Stop: 12/06/23 09:59 Last Admin: 11/06/23 22:26 Dose: 5 mls/min Magnesium Sulfate/Dextrose (Magnesium Sulfate / D5w) 1 gm in 100 mls @ 50 mls/hr IV ONE ONE Stop: 11/07/23 10:57 Magnesium Oxide (Magnesium Oxide 400 Mg Tab) 400 mg PO DAILY [facility] Stop: 12/03/23 08:59 Last Admin: 11/06/23 08:38 Dose: 400 mg Polyethylene Glycol (Polyethylene (Miralax) 17 Gm Pack) 17 gm PO DAILY PRN PRN Reason: Constipation Stop: 12/02/23 17:49 Potassium Chloride (Potassium Chloride Crtab 20 Meq Tabcr) 40 meq PO NOW STA Stop: 11/07/23 08:59 Promethazine HCl (Promethazine Hcl 25 Mg Tab) 25 mg PO Q6H PRN PRN Reason: Nausea And Vomiting Stop: 12/04/23 07:57 Vitamin D (Cholecalciferol 400 Units 10 Mcg Tab) 800 units PO DAILY [facility] Stop: 12/03/23 08:59 Last Admin: 11/06/23 08:39 Dose: 800 units
[2023-11-07] MEDS: POT PHOSPHATE MONOBASIC W/ SOD TAB PO SCH ×4 (09:59→20:13)
[2023-11-07] MEDS: PANTOprazole 40 MG in SYRINGE 0 ML IV SCH ×2 (10:00→20:13)
[2023-11-07] MEDS: amLODIPine BESYLATE 5 MG TAB PO SCH (10:01)
[2023-11-07] MEDS: carvediloL 3.125 MG TAB PO SCH ×2 (10:01→20:15)
[2023-11-07] MEDS: CARBIDOPA/LEVODOPA 25/100MG TAB PO SCH ×3 (10:02→21:09)
[2023-11-07] MEDS: CHOLECALCIFEROL 400 UNITS 10 MCG TAB PO SCH (10:02)
[2023-11-07] MEDS: CYANOCOBALAMIN (B-12) 2,500 MCG TABLET PO SCH (10:02)
[2023-11-07] MEDS: MAGNESIUM OXIDE 400 MG TAB PO SCH (10:02)
[2023-11-07] MEDS: GABAPENTIN 300 MG CAP PO SCH (20:15)
[2023-11-07] MEDS ORDERED: ZOLPIDEM TARTRATE 5 MG TAB PO STA (23:17)
[2023-11-08 06:25] LABS: Hematocrit (blood only) 25.4 % (42.0-52.0); Hemoglobin 8.7 g/dl (14.0-18.0); Mean Corpuscular Hemoglobin 29.8 pg (25.0-34.0); Mean Corpuscular Hgb Conc 34.3 g/dL (32.0-36.0); Mean Platelet Volume 10.9 fL (9.4-12.4); Platelet Count 234 K/uL (130-400); RDW Coefficient of Variation 14.7 % (11.5-14.5); RDW Standard Deviation 46.9 fL (36.4-46.3); Red Blood Count 2.92 M/uL (4.70-6.10); White Blood Count 6.14 K/ul (4.8-10.8)
[2023-11-08 06:46] LABS: BUN Creatinine Ratio 21.7 (10-20); Calcium 8.7 mg/dl (8.6-10.3); Creatinine Clr Calc Pharmacy 24.8 ml/min; Est GFR (African American) 41.7 ml/min; Magnesium 1.7 mg/dl (1.7-2.4); Phosphorus 2.2 mg/dl (2.5-4.9); Potassium 3.3 mmol/L (3.5-5.1)
[2023-11-08] MEDS: PANTOprazole 40 MG in SYRINGE 0 ML IV SCH ×2 (08:00→20:00)
[2023-11-08] MEDS: carvediloL 3.125 MG TAB PO SCH ×2 (08:01→20:00)
[2023-11-08] MEDS: amLODIPine BESYLATE 5 MG TAB PO SCH (08:02)
[2023-11-08] MEDS: CYANOCOBALAMIN (B-12) 2,500 MCG TABLET PO SCH (08:02)
[2023-11-08] MEDS: CHOLECALCIFEROL 400 UNITS 10 MCG TAB PO SCH (08:02)
[2023-11-08] MEDS: MAGNESIUM OXIDE 400 MG TAB PO SCH (08:02)
[2023-11-08] MEDS: POT PHOSPHATE MONOBASIC W/ SOD TAB PO SCH ×4 (08:03→20:00)
[2023-11-08] MEDS ORDERED: MAGNESIUM SULFATE / D5W 1 GM/100 ML BAG IV ONE (08:23)
--- NOTE | 2023-11-08 08:50 | Hospitalist Progress Note ---
Date of Service November 08, 2023 Assessment & Plan (1) Pneumonia due to COVID-19 virus: Plan: COVID-19 Pneumonia Hypoxia Generalized weakness - COVID-19 positive - Given procalcitonin is negative, stopped abx. Patient is not septic and would like to avoid increased risk of c-diff infection and GI symptoms. - CXR reviewed: Interval development of moderate right basilar consolidation. This favors pneumonia-likely viral - hypoxia resolved. - no need for abx which were stopped. - Transitioned IV steroids to oral. Pt denies side effects. - continues to do well clinically - evidently infected, also. - PT/OT consult-->ok to return home with support (2) Generalized weakness: Plan: 01/03 #1, improved. (3) Hypokalemia: Plan: resolved with replacement. (4) History of colon cancer: (5) History of prostate cancer: (6) HTN (hypertension): (7) Anemia: Plan: chronic, was slowly decreasing on recent trend, however, Hb appears to have improved by 2 grams. Current Hgb 9.4 -> 8.7 GI bleed RN reported patient had several episodes of melena. ASA and hep held Decadron was stopped and pt placed on PPI and GI consult placed. Per outpatient record review: -Last CSP 03/16/2022: End to end ileocolonic anastomosis characterized by congestion and ulceration. The entire colon was normal. Diverticulosis in the sigmoid colon and descending colon. Distal rectum and anal verge were normal on retroflexion. -Last EGD: 11/2018 performed for weight loss with results showing a mild ring, small hiatal hernia, Zenker's diverticulum. Per GI - recommend IV PPI, no plan for endoscopy at this time. Monitor H&H. Obtain stool studies/c. diff if loose stools 11/07 pt had brown stool w/ small amount of blood. GI notified - no change in management at this time. C. diff is negative. 11/08 Per RN, pt had 2 stool w/o any blood (8) Weight loss: Plan: Chronic weight loss, has a h/o chron's disease with last CSP as noted above. Has h/o colon and prostate cancer per records. Cont current therapy for now and encourage PO intake. Coil Connector Repairer consult placed. Notably he was seen in Jul 2023 and had a goal for weight gain to >BMI 18.5. BMI is currently 21. Close outpatient followup of this. (9) CKD (chronic kidney disease), stage III: Plan: -Chronic, stable, creatinine 1.91 on admission, baseline around 2 (10) Parkinsonism: Plan: Parkinson's ? Dementia-chronic, stable. -Continue carbidopa levodopa, Remeron at bedtime -Patient is unable to get himself dressed, is able to feed himself, but requires significant assistance by who is his primary caregiver at home -he appears to be at his baseline and PT has cleared him to return home. DVT PPx: teds, scds, heparin FEN/GI: Regular diet, easy to chew CODE: DNR/DNI Dispo: home with support in the next 1-2 days Admission and Anticipated Discharge Date Admission Date: November 02, 2023 Subjective Patient is an 78-year-old man with history of Parkinson's dementia, Crohn's disease and history of prostate and colon cancers who presents with respiratory symptoms and weakness, found to have COVID-pneumonia. Currently laying in bed in [facility]. RN reported patient had several episodes of melena. ASA and hep held Decadron was stopped and pt placed on PPI with GI consult placed. No endoscopy planned - they recommend IV PPI and cont. to monitor. c diff negative. Per RN, pt had 2 stools reported w/o any blood This AM - pt had a chocking episode per RN - on pills. CXR ordered. will discuss w/ speech. Pt reports to feel well - denies any respiratory issues or abd. pain. Review of Systems Review of Systems: All systems reviewed & are unremarkable except as noted in Subjective Physical Exam Physical Exam: CONSTITUTIONAL: cachectic M in NAD, chronically ill appearing. EYES: normal conjunctivae, no scleral icterus ENT: external ear and nose normal, MMM NECK: supple RESPIRATORY: clear to auscultation bilaterally, no crackles, rales or wheezes, normal respiratory effort CARDIOVASCULAR: regular rate and rhythm, S1 and 2 heard without murmurs CHEST: inspection of chest normal GASTROINTESTINAL: soft, nontender, ND, no guarding MUSCULOSKELETAL: strength 5/5 throughout, head is normocephalic and atraumatic SKIN: warm and dry NEURO/PSYCH: alert cooperative and oriented to person, place and time. Euthymic mood, normal speech, no tremor, moves extremities Results & Data Results & Data Vital Signs (Past 12 Hours) Vital Signs Temp Pulse Resp BP Pulse Ox O2 Del Method O2 Del Method 11/08/23 08:16 70 17 98 Room Air 11/08/23 08:15 Room Air 11/08/23 08:09 77 97 Room Air 11/08/23 07:59 36.8 C 74 18 130/89 98 Room Air 11/07/23 23:00 Room Air 11/07/23 22:02 36.5 C 66 16 137/81 96 Room Air Laboratory Results 11/08/23 11/07/23 11/07/23 Range/Units 05:52 Unknown 08:01 WBC 6.14 (4.8-10.8) K/ul RBC 2.92 L (4.70-6.10) M/uL Hgb 8.7 L (14.0-18.0) g/dl Hct 25.4 L (42.0-52.0) % MCV 87.0 (80.0-100.0) fL MCH 29.8 (25.0-34.0) pg MCHC 34.3 (32.0-36.0) g/dL RDW Std Deviation 46.9 H (36.4-46.3) fL RDW Coeff of Ruiz 14.7 H (11.5-14.5) % Plt Count 234 (130-400) K/uL MPV 10.9 (9.4-12.4) fL Sodium 140 140 (136-145) mmol/L Potassium 3.3 L 3.3 L (3.5-5.1) mmol/L Chloride 109 H 109 H (98-107) mmol/L Carbon Dioxide 25 25 (21-32) mmol/L Anion Gap 6 6 (3-11) BUN 38 H 38 H (6-23) mg/dl Creatinine 1.75 H 1.73 H (0.6-1.4) mg/dl Est Cr Clr Drug Dosing 24.8 25.0 ml/min Est GFR ( Amer) 41.7 42.3 ml/min Est GFR (Non-Af Amer) 36.0 36.5 ml/min BUN/Creatinine Ratio 21.7 H 22.0 H (10-20) Glucose 84 74 (70-99(Fasting)) mg/dl Calcium 8.7 9.0 (8.6-10.3) mg/dl Phosphorus 2.2 L 1.7 L (2.5-4.9) mg/dl Magnesium 1.7 1.4 L (1.7-2.4) mg/dl Stl C. diff Tox B Gene Negative Cdiff Gene (Neg) Medications Administered Current Inpatient Medications Acetaminophen (Acetaminophen 325 Mg Tab) 650 mg PO Q4H PRN PRN Reason: Pain or Fever Stop: 12/02/23 17:49 Albuterol (Albut/Ipratrop 3mg/0.5mg Neb 3 Ml Vial) 3 ml NEB Q4R PRN; Protocol PRN Reason: Shortness Of Breath Or Wheezing Stop: 12/02/23 22:59 Amlodipine Besylate (Amlodipine Besylate 5 Mg Tab) 5 mg PO QAM [facility] Stop: 12/03/23 08:59 Last Admin: 11/08/23 08:02 Dose: 5 mg Aspirin (Aspirin 81 Mg Ectab) [facility] [place] Stop: 12/03/23 08:59 Last Admin: 11/05/23 09:32 Dose: 81 mg Carbidopa/Levodopa (Carbidopa/Levodopa 25/100mg Tab) 2 tab PO TID PETER Stop: 12/02/23 16:14 Last Admin: 11/07/23 21:09 Dose: 2 tab Carvedilol (Carvedilol 3.125 Mg Tab) 3.125 mg PO BID [facility] Stop: 12/02/23 20:59 Last Admin: 11/08/23 08:01 Dose: 3.125 mg Cyanocobalamin (Cyanocobalamin (B-12) 2,500 Mcg Tablet) 5,000 mcg PO DAILY [facility] Stop: 12/03/23 08:59 Last Admin: 11/08/23 08:02 Dose: 5,000 mcg Gabapentin (Gabapentin 300 Mg Cap) 300 mg PO HS [facility]ER Stop: 12/02/23 20:59 Last Admin: 11/07/23 20:15 Dose: 300 mg Heparin Sodium (Porcine) (Heparin Sod 5,000 Unit/0.5 Ml Vial) 5,000 units SQ Q12 [facility] Stop: 12/02/23 20:59 Last Admin: 11/05/23 09:32 Dose: 5,000 units Pantoprazole Sodium 40 mg/ (Syringe) 10 mls @ 5 mls/min IV BID [facility] Stop: 12/06/23 09:59 Last Admin: 11/08/23 08:00 Dose: 5 mls/min Potassium Chloride (K Berto / Wtr) 10 meq in 100 mls @ 100 mls/hr IV Q1H [facility] Stop: 11/08/23 10:29 Magnesium Sulfate/Dextrose (Magnesium Sulfate / D5w) 1 gm in 100 mls @ 50 mls/hr IV ONE ONE Stop: 11/08/23 10:22 Magnesium Oxide (Magnesium Oxide 400 Mg Tab) 400 mg PO DAILY [facility] Stop: 12/03/23 08:59 Last Admin: 11/08/23 08:02 Dose: 400 mg Polyethylene Glycol (Polyethylene (Miralax) 17 Gm Pack) 17 gm PO DAILY PRN PRN Reason: Constipation Stop: 12/02/23 17:49 Potassium Phosphate (Pot Phosphate Monobasic W/ Sod Tab) 2 tab PO QID [facility] Stop: 12/07/23 08:59 Last Admin: 11/08/23 08:03 Dose: 2 tab Promethazine HCl (Promethazine Hcl 25 Mg Tab) 25 mg PO Q6H PRN PRN Reason: Nausea And Vomiting Stop: 12/04/23 07:57 Vitamin D (Cholecalciferol 400 Units 10 Mcg Tab) 800 units PO DAILY [facility] Stop: 12/03/23 08:59 Last Admin: 11/08/23 08:02 Dose: 800 units
[2023-11-08] MEDS: CARBIDOPA/LEVODOPA 25/100MG TAB PO SCH ×3 (09:21→20:00)
[2023-11-08] MEDS: POTASSIUM CHLORIDE / WTR 10 MEQ/100 ML PLCT IV SCH ×2 (09:23→10:13)
--- NOTE | 2023-11-08 09:50 | XRay Report ---
XR chest 1V portable HISTORY: pt had a chocking episode COMPARISON: Chest 11/02/2023. FINDINGS: No pneumothorax. No pleural effusions. The cardiac silhouette remains top normal in size. A few left basilar linear densities favor subsegmental atelectasis. Otherwise, the left lung is clear. There are calcifications within the thoracic aorta. Right basilar airspace opacities have improved i n the interval. IMPRESSION: 1. Improved aeration within the right basilar airspace opacity suggestive of a resolving pneumonia. O ne-month chest follow-up recommended to ensure complete resolution. 2. Left basilar linear densities are nonspecific but favor subsegmental atelectasis. ACT 112: Negative or not required by law. Electronically signed by: Shekhar Chiang M.D. 11/08/2023 9:48 AM
[2023-11-08] MEDS ORDERED: POTASSIUM CHLORIDE PWD 20 MEQ PACK PO ONE (15:46)
[2023-11-08] MEDS: GABAPENTIN 300 MG CAP PO SCH (20:00)
[2023-11-09 08:13] LABS: Hemoglobin 8.6 g/dl (14.0-18.0); Mean Corpuscular Hemoglobin 29.1 pg (25.0-34.0); Mean Corpuscular Hgb Conc 33.1 g/dL (32.0-36.0); Mean Corpuscular Volume 87.8 fL (80.0-100.0); Mean Platelet Volume 10.1 fL (9.4-12.4); Platelet Count 261 K/uL (130-400); RDW Standard Deviation 47.8 fL (36.4-46.3); Red Blood Count 2.96 M/uL (4.70-6.10); White Blood Count 6.87 K/ul (4.8-10.8)
[2023-11-09] MEDS: PANTOprazole 40 MG in SYRINGE 0 ML IV SCH (08:16)
[2023-11-09] MEDS: POT PHOSPHATE MONOBASIC W/ SOD TAB PO SCH ×2 (08:16→13:00)
[2023-11-09] MEDS: CARBIDOPA/LEVODOPA 25/100MG TAB PO SCH ×2 (08:17→13:00)
[2023-11-09] MEDS: CHOLECALCIFEROL 400 UNITS 10 MCG TAB PO SCH (08:17)
[2023-11-09] MEDS: carvediloL 3.125 MG TAB PO SCH (08:18)
[2023-11-09] MEDS: MAGNESIUM OXIDE 400 MG TAB PO SCH (08:18)
[2023-11-09] MEDS: amLODIPine BESYLATE 5 MG TAB PO SCH (08:18)
[2023-11-09] MEDS: CYANOCOBALAMIN (B-12) 2,500 MCG TABLET PO SCH (08:19)
[2023-11-09 08:21] LABS: Phosphorus 3.2 mg/dl (2.5-4.9)
[2023-11-09 08:57] LABS: BUN Creatinine Ratio 16.3 (10-20); Calcium 8.7 mg/dl (8.6-10.3); Creatinine Clr Calc Pharmacy 26.1 ml/min; Est GFR (African American) 44.4 ml/min; Est GFR (Non-African American) 38.3 ml/min; Magnesium 1.6 mg/dl (1.7-2.4); Potassium 3.4 mmol/L (3.5-5.1)
[2023-11-09] MEDS ORDERED: POTASSIUM CHLORIDE PWD 20 MEQ PACK PO ONE (09:45)
[2023-11-09] MEDS ORDERED: MAGNESIUM SULFATE / D5W 1 GM/100 ML BAG IV ONE (09:46)
--- NOTE | 2023-11-09 11:19 | Discharge Summary ---
Date of Service November 09, 2023 Admission HPI Per Admitting Provider This is an 78 yo M with PMHx of hypertension, hyperlipidemia, PVD, TIA, mild aortic stenosis, Parkinson's disease, dementia, CRI (baseline creatinine 2 ), mood disorder, Crohn's disease, ileal cancer status post surgery, GERD, prostate cancer status post surgery, left renal mass possible malignancy, chronic anemia (baseline hemoglobin of 12), ongoing tobacco abuse, who presents to the hospital with progressive weakness. supplies the history as pt has dementia, and states that he developed symptoms today Normally he walks with a walker, but today could barely stand up. She did not notice any other symptoms than this today. He took his medications last yesterday. Pts appetite has been progressively worse with dementia progressing. In regards to his dementia pt is not oriented to time or date, he cannot dress himself, and is his primary caregiver. She is shocked to hear that he is vovid positive, but admits to viral symptoms personally and currently with laryngitis where she has difficulty speaking. Her symptoms started last Saturday and she was encouraged to wear a mask, wash hands, and to tell close contacts. Pt has children who do come to help them with some ADLs throughout the week. Admission Exam Per Admitting Provider General Appearance: Thin, frail, chronically appearing, cachexia Head: normocephalic, Atraumatic Eyes: normal inspection, EOMI Neck: supple, Trachea midline Respiratory/Chest: Decreased breath sounds, scant rhonchi No accessory muscle use Cardiovascular: S1, S2, No murmur Abdomen/GI:Soft, Non tender, Bowel sounds present Extremities/Musculoskeletal:normal inspection, no edema Neurologic/Psych:AAOX2, grossly no focal neurological deficits, follows simple commands, repetitive oral movements Skin: normal color, warm Principal Diagnosis + Covid 19 pneumonia GI bleed Discharge Exam CONSTITUTIONAL: cachectic M in NAD, chronically ill appearing. EYES: normal conjunctivae, no scleral icterus ENT: external ear and nose normal, MMM NECK: supple RESPIRATORY: clear to auscultation bilaterally, no crackles, rales or wheezes, normal respiratory effort CARDIOVASCULAR: regular rate and rhythm, S1 and 2 heard without murmurs CHEST: inspection of chest normal GASTROINTESTINAL: soft, nontender, ND, no guarding MUSCULOSKELETAL: strength 5/5 throughout, head is normocephalic and atraumatic SKIN: warm and dry NEURO/PSYCH: alert cooperative and oriented to person, place and time. Euthymic mood, normal speech, no tremor, moves extremities Discharge Data Allergies Allergy/AdvReac Type Severity Reaction Status Date / Time Sulfa (Sulfonamide Allergy Intermediate HIVES Verified 11/02/23 14:54 Antibiotics) Consultations 11/02/23 14:16 ED Decision to Admit Stat 11/05/23 19:57 Consult Gastroenterology Routine Ordered Studies 11/02/23 12:54 CT head/brain wo con Stat FINDINGS: No acute intracranial hemorrhage, midline shift or mass effect is present. White matter hypodensities are unchanged and suggest small vessel disease. The appearance of the brain is unchanged. The ventricular system is unremarkable. The basal cisterns are patent. No extra-axial collections are present. There are no findings to suggest acute dural sinus thrombosis or acute territorial infarct. No significant calvarial abnormalities are present. Visualized portions of the sinuses and mastoid air cells are clear. IMPRESSION: No acute intracranial findings. Hospital Course (1) Pneumonia due to COVID-19 virus: COVID-19 Pneumonia Hypoxia Generalized weakness - COVID-19 positive - Given procalcitonin is negative, stopped abx. Patient is not septic and would like to avoid increased risk of c-diff infection and GI symptoms. - CXR reviewed: Interval development of moderate right basilar consolidation. This favors pneumonia-likely viral - hypoxia resolved. - no need for abx which were stopped. - Transitioned IV steroids to oral. Pt denies side effects. - continues to do well clinically - evidently infected, also. - PT/OT consult-->ok to return home with support (2) Generalized weakness: 2/2 #1, improved. (3) Hypokalemia: resolved with replacement. (4) History of colon cancer: (5) History of prostate cancer: (6) HTN (hypertension): (7) Anemia: chronic, was slowly decreasing on recent trend, however, Hb appears to have improved by 2 grams. Current Hgb 8.6, stable from yesterday GI bleed RN reported patient had several episodes of melena. ASA and hep held Decadron was stopped and pt placed on PPI and GI consult placed. Per outpatient record review: -Last CSP 03/16/2022: End to end ileocolonic anastomosis characterized by congestion and ulceration. The entire colon was normal. Diverticulosis in the sigmoid colon and descending colon. Distal rectum and anal verge were normal on retroflexion. -Last EGD: 11/2018 performed for weight loss with results showing a mild ring, small hiatal hernia, Zenker's diverticulum. Per GI - recommend IV PPI, no plan for endoscopy at this time. Monitor H&H. Obtain stool studies/c. diff if loose stools 11/07 pt had brown stool w/ small amount of blood. GI notified - no change in management at this time. C. diff is negative. 11/08 Per RN, pt had 2 stool w/o any blood 11/09 no blood in stool noted and pt's Hgb is stable. he would like to go home. Will Dc on pantoprazole and will have him follow up with his pcp and GI (8) Weight loss: Chronic weight loss, has a h/o chron's disease with last CSP as noted above. Has h/o colon and prostate cancer per records. Cont current therapy for now and encourage PO intake. Professor Of Finance consult placed. Notably he was seen in Jul 2023 and had a goal for weight gain to >BMI 18.5. BMI is currently 21. Close outpatient followup of this. (9) CKD (chronic kidney disease), stage III: -Chronic, stable, creatinine 1.91 on admission, baseline around 2 (10) Parkinsonism: Parkinson's ? Dementia-chronic, stable. -Continue carbidopa levodopa, Remeron at bedtime -Patient is unable to get himself dressed, is able to feed himself, but requires significant assistance by who is his primary caregiver at home -he appears to be at his baseline and PT has cleared him to return home. Total Time Total Time Spent Total Time Spent (In Minutes): 40 Discharge Plan Discharge Items Patient Disposition: Home - Self-Care Reason For Visit: PNEUMONIA Discharge Diagnosis: + Covid 19 pneumonia GI bleed Activity: Per Instructions section Non-emergency contact: Primary Care Provider and Mental Health Associate Call non-emergency contact if: you have any medication questions and your symptoms worsen Follow-up/Referrals: Tina Romo DO [Primary Care Provider] - Diet: Regular Diet Texture: Easy to Chew Addtl Attending Provider Instructions: Follow up with your primary care doctor within 1 week. Take pantoprazole twice a day as prescribed. You may also need to see semiconductor packages platemaker. Recommend taking potassium supplement in addition to your magnesium supplement. Home Isolation COVID-19 Instructions The following information about Home Isolation is from the CDC Website: https://www.cdc.gov/coronavirus/2019-ncov/hcp/cpojcwsk-yjazwpm-vuocqk.html Stay home except to get medical care People who are mildly ill with COVID-19 are able to isolate at home during their illness. You should restrict activities outside your home, except for getting medical care. Do not go to work, school, or public areas. Avoid using public transportation, ride-sharing, or taxis. Separate yourself from other people and animals in your home People: As much as possible, you should stay in a specific room and away from other people in your home. Also, you should use a separate bathroom, if avail able. Animals: You should restrict contact with pets and other animals while you are sick with COVID-19, just like you would around other people. Although there have not been reports of pets or other animals becoming sick with COVID-19, it is still recommended that people sick with COVID-19 limit contact with animals until more information is known about the virus. When possible, have another member of your household care for your animals while you are sick. If you are sick with COVID-19, avoid contact with your pet, including petting, snuggling, being kissed or licked, and sharing food. If you must care for your pet or be around animals while you are sick, wash your hands before and after you interact with pets and wear a face mask. Call ahead before visiting your doctor If you have a medical appointment, call the healthcare provider and tell them that you have or may have COVID-19. This will help the healthcare providers office take steps to keep other people from getting infected or exposed. Wear a face mask You should wear a face mask when you are around other people (e.g., sharing a room or vehicle) or pets and before you enter a healthcare providers office. If you are not able to wear a face mask (for example, because it causes trouble breathing), then people who live with you should not stay in the same room with you, or they should wear a face mask if they enter your room. Cover your coughs and sneezes Cover your mouth and nose with a tissue when you cough or sneeze. Throw used tissues in a lined trash can. Immediately wash your hands with soap and water for at least 20 seconds or, if soap and water are not available, clean your hands with an alcohol-based hand physicist cryogenics that contains at least 60% alcohol. Clean your hands often Wash your hands often with soap and water for at least 20 seconds, especially after blowing your nose, coughing, or sneezing; going to the bathroom; and before eating or preparing food. If soap and water are not readily available, use an alcohol-based hand physicist cryogenics with at least 60% alcohol, covering all surfaces of your hands and rubbing them together until they feel dry. Soap and water are the best option if hands are visibly dirty. Avoid touching your eyes, nose, and mouth with unwashed hands. Avoid sharing personal household items You should not share dishes, drinking glasses, cups, eating utensils, towels, or bedding with other people or pets in your home. After using these items, they should be washed thoroughly with soap and water. Clean all high-touch surfaces everyday High touch surfaces include counters, tabletops, doorknobs, bathroom fixtures, toilets, phones, keyboards, tablets, and bedside tables. Also, clean any surfaces that may have blood, stool, or body fluids on them. Use a household cleaning spray or wipe, according to the label instructions. Labels contain instructions for safe and effective use of the cleaning product including precautions you should take when applying the product, such as wearing gloves and making sure you have good ventilation during use of the product. Monitor your symptoms Seek prompt medical attention if your illness is worsening (e.g., difficulty breathing).Beforeseeking care, call your healthcare provider and tell them that you have, or are being evaluated for, COVID-19. Put on a face mask before you enter the facility. These steps will help the healthcare providers office to keep other people in the office or waiting room from getting infected or exposed. Ask your healthcare provider to call the local or [facility] health department. Persons who are placed under active monitoring or facilitated self- monitoring should follow instructions provided by their local health department or occupational health professionals, as appropriate. When working with your local health department check their available hours. If you have a medical emergency and need to call 911, notify the dispatch personnel that you have, or are being evaluated for COVID-19. If possible, put on a face mask before emergency medical services arrive. Discontinuing home isolation Patients with confirmed COVID-19 should remain under home isolation precautions until the risk of secondary transmission to others is thought to be low. The decision to discontinue home isolation precautions should be made on a ihos-ui-dakn basis, in consultation with healthcare providers and state and local health departments. Coronavirus disease 2019 (COVID-19) is a virus that causes a respiratory illness. It is caused by a coronavirus called 2019 novel coronavirus (2019- nCoV). There are many types of coronavirus. Coronaviruses are a very common cause of bronchitis. They may sometimes cause lung infection(pneumonia). Symptoms can range from mild to severe respiratory illness. These viruses are also foundin some animals. COVID-19 was first found in people in [facility], in late 2018. In 2020, several cases of COVID-19 have been confirmed in the [place] Public health officials are working to find the source. How the virus spreads is not yet fully known. It may be spread through droplets of fluid that a person coughs or sneezes into the air. It may be spread if you touch a surface with virus on it, such as a handle or object, and then touch your mouth. What are the symptoms of COVID-19? Some people have no symptoms or mild symptoms. Symptoms may appear 2 to 14 days after contact with the virus. Symptoms can include: Fever Coughing Trouble breathing What are possible complications from COVID-19? In many cases, this virus can cause infection (pneumonia) in both lungs. In some cases, this can cause . How is COVID-19 diagnosed? Your healthcare provider will ask about your symptoms. He or she will also ask about your recent travel and contact with sick people. Testing for the virus is only done through the CDC. If yourhealthcare provider thinks you may have COVID- 19, he or she will work with your local health department and the CDC on testing. Follow all instructions from your healthcare provider. COVID-19 is diagnosed by: Nasal and throat swab. A cotton-tipped swab is wiped inside your nose or throat. This is done to check for viruses in your nasal mucus. Sputum culture. A small sample of mucus coughed from your lungs (sputum) is collected if you have a cough. It is checked for the virus. How is COVID-19 treated? There is currently no medicine to treat the virus. Treatment is done to help your body while it fights the virus. This is known as supportive care. Supportive care may include: Pain medicine. These include acetaminophen and ibuprofen. They are used to help ease pain and reduce fever. Bed rest. This helps your body fight the illness. For severe illness, you may need to stay in the hospital. Care during severe illness may include: IV (intravenous) fluids.These are given through a vein to help keep your body hydrated. Oxygen. Supplemental oxygen or ventilation with a breathing machine (ventilator) may be given. This is done to keep enough oxygen in your body. Are you at risk for COVID-19? If youve been to a place where people have been sick with this virus, you are at risk for infection. You are at risk if you: Recently traveled to an affected area Had contact with a sick person who recently traveled to this area Had contact with a person who was diagnosed with COVID-19 How can COVID-19 be prevented? There is no vaccine yet. The best prevention is to not have contact with the virus. The CDC advises that people should not travel to areas where there are COVID-19 outbreaks right now for any reason that is not urgent. To help prevent spreading the infection, wash your hands often, or use an alcohol-basedhand physicist cryogenics. If you are in an area with COVID-19: Wash your hands often. Or use an alcohol-based hand physicist cryogenics often. Only touch your eyes, nose, or mouth with clean hands. Dont have contact with people who are sick. Follow local instructions about being in public. For example, you may be told to not use public transport for a period of time. Stay away from markets that have live or animals. Wash your hands after touching any animals. Don't touch animals that may be sick. Dont share eating or drinking tools with sick people. Dont kiss someone who is sick. Clean surfaces often with disinfectant. If you were in an area with COVID-19 in the last 14 days: Call your healthcare provider. He or she can talk with local health staff to see what action may be needed. Follow all instructions from your provider. Take your temperature every morning and evening for at least 14 days. This is to check for fever. Keep a record of the readings. Keep watch for symptoms of the virus. Tell your provider right away if you have symptoms. If you were in an area with COVID-19 and have a fever or other symptoms: Dont panic. Keep in mind that other illnesses can cause similar symptoms. Stay away from work, school, and public places. Limit physical contact with family members. Don't kiss anyone or share eating or drinking utensils. Clean surfaces you touch with disinfectant. This is to help prevent the virus from spreading. Call your healthcare provider. Explain that you have been exposed to COVID-19 and have symptoms. Do this before going to any hospital. Wait for instructions. Keep in mind that healthcare staff may wear protective equipment such as masks, gowns, gloves, and eye protection. You may be put in a separate room. This is to prevent the possible virus from spreading. Tell the healthcare staff about recent travel. This includes local travel on public transport. Staff may need to find other people you have been in contact with. Follow all instructions the healthcare staff give you. If you have been diagnosed with COVID-19 Follow all instructions from your healthcare provider. Dont leave your home, except to get medical care. Call your healthcare providers office before going. They can prepare and give you instructions. This will help prevent the virus from spreading. Dont go to work, school, or public areas. Dont use public transport or taxis. Stay away from other people in your home. Have them wear face masks around you. Dont share household items or food. Wear a face mask if you can. This includes at home or in a medical facility. Cover your face with a tissue when you cough or sneeze. Throw the tissue away. Wash your hands. Wash your hands often. Caregivers should: Follow all instructions from healthcare staff. Wear a face mask and protective clothing as advised. Wash hands often. Keep track of the sick persons symptoms. Clean surfaces, fabrics, and laundry thoroughly. Keep other people away from the sick person. When to call your healthcare provider Call your healthcare provider: If youve recently traveled and have symptoms If you have been diagnosed with COVID-19 and your symptoms are worse To learn more To find out more about COVID-19, visit the CDC website at www.cdc.gov/coronavirus/2019-ncov/index.html. [employer]. [address] [place] [address], [place] [address]. All rights reserved. This information is not intended as a substitute for professional medical care. Always follow your healthcare professional's instructions. This information has been adapted from [employer] Pending Studies at Discharge: No Stand-Alone Forms: [facility] [employer], Smoking Cessation Medications and DC Order Prescriptions: New potassium chloride [Klor-Con] 20 mEq packet 20 meq PO DAILY Qty: 30 0RF pantoprazole 40 mg tablet,delayed release (DR/EC) 40 mg PO BID Qty: 60 0RF Continued carbidopa-levodopa 25-100 mg tablet 2 tab PO TID Rx Instructions: PER EXT MED HX--LAST FILLED 02/02/23 FOR 71 DAYS magnesium 250 mg tablet 250 mg PO DAILY ondansetron HCl 4 mg tablet 4 mg PO Q8H PRN (Reason: nausea and vomiting) Qty: 20 0RF carvedilol 3.125 mg tablet 3.125 mg PO BID Rx Instructions: PER EXT MED HX--LAST FILLED 07/22/23 FOR 90 DAYS. cholecalciferol (vitamin D3) 10 mcg (400 unit) Capsule 800 unit PO DAILY cyanocobalamin (vitamin B-12) 5,000 mcg Capsule 5,000 mcg PO DAILY amlodipine [Norvasc] 5 mg Tablet 5 mg PO QAM Qty: 30 0RF gabapentin 300 mg capsule 300 mg PO HS Rx Instructions: PER EXT MED HX--LAST FILLED 07/18/23 FOR 30 DAYS. Discontinued aspirin 81 mg Tablet,Delayed Release (Dr/Ec) 81 mg PO QAM Qty: 100 0RF Discharge Orders: Discharge Order (Routine); Ordered 11/09/23 Ordered By: Garth Novak Admission Data Admit Date/Time: 11/02/23 15:29 Attending Provider: Garth Novak Admit Provider: Mohan Prieto Primary Care Provider: Tina Romo Other Providers: Mohan Prieto; Daisha Johnson; Jeanne Carias
== END 2023-11-09 14:24 | disposition home or self-care (01) | DRG 177 ==
LOC: ED 12:15 → EDINP 15:29 → SUATTDRO 15:29 → 2N 11-04 23:06 → 3E 11-07 20:58

== ENCOUNTER 2025-06-14 14:41 | Inpatient (IN) ==
[2025-06-14 15:44] LABS: Hematocrit (blood only) 34.0 % (42.0-52.0); Hemoglobin 10.6 g/dl (14.0-18.0); Immature Granulocytes # (auto) 0.01 K/uL (0.01-0.20); Immature Granulocytes % (auto) 0.2 %; Mean Corpuscular Hemoglobin 27.9 pg (25.0-34.0); Mean Corpuscular Volume 89.5 fL (80.0-100.0); Platelet Count 272 K/uL (130-400); RDW Standard Deviation 50.4 fL (36.4-46.3); Red Blood Count 3.80 M/uL (4.70-6.10); White Blood Count 6.54 K/ul (4.8-10.8)
--- NOTE | 2025-06-14 15:54 | XRay Report ---
XR chest 1V not portable CLINICAL HISTORY: Chest pain, nonspecific COMPARISON STUDY: 01/14/2025 FINDINGS: Stable mild cardiomegaly without pulmonary vascular congestion. There is interval stranding opacity at the right lung base. No other consolidation or pleural effusion. No pneumothorax. IMPRESSION: Atelectasis versus early pneumonia right lung base. ACT 112: Negative or not required by law. Electronically signed by: Marcus Perez M.D. 06/14/2025 3:53 PM
[2025-06-14 15:58] LABS: Alanine Aminotransferase 5 U/L (7-52); Albumin Globulin Ratio 0.8 (0.9-2); Alkaline Phosphatase 80 U/L (34-104); Anion Gap 7 (3-11); Bilirubin,Total 0.6 mg/dl (0.2-1.0); Blood Urea Nitrogen 22 mg/dl (6-23); Calcium 9.5 mg/dl (8.6-10.3); Carbon Dioxide 29 mmol/L (21-32); Chloride 107 mmol/L (98-107); Globulin 3.9 gm/dl (2.5-4.0); Glucose 83 mg/dl (70-99(Fasting)); Potassium 3.5 mmol/L (3.5-5.1); Sodium 143 mmol/L (136-145); Total Protein 7.1 gm/dl (6.0-8.3)
[2025-06-14 16:36] LABS: INR 1.0 (0.9-1.1); Partial Thromboplastin Time 28 Seconds (21-31); Prothrombin Time 11.2 Seconds (9.0-12.0)
--- NOTE | 2025-06-14 17:46 | Emergency Department Note ---
Impression & Plan Acute CHF, Elevated troponin, Bilateral leg edema, Elevated brain natriuretic peptide (BNP) level ED Provider Note HISTORY OF PRESENT ILLNESS: Patient is a 80-year-old male presenting with bilateral lower extremity swelling and left hand swelling. Patient reportedly has had progressively worsening swelling of his bilateral lower extremities over the last 2 weeks. Few days ago he started having swelling to his left hand. No reported injury to his hand. No reported chest pain or shortness of breath. They had visited his primary doctor today for close follow-up and were sent to the emergency department due to concern for "A-fib with RVR." Patient reports he takes 20 mg of Lasix daily but "it is not helping me." He denies any abdominal pain, nausea or vomiting. Denies any lightheadedness or dizziness. ROS: as above PHYSICAL EXAM: Constitutional: Patient appears in no acute distress. HENT: Head: Normocephalic and atraumatic. Eyes: EOMI, PERRL Mouth/Throat: Mucous membranes moist. Neck: Trachea midline. Neck supple. Cardiovascular: RRR, No murmurs, rubs or gallops. Intact distal pulses. Pulmonary/Chest: No respiratory distress. Breath sounds clear and equal bilaterally. No wheezes or rales. Abdominal: Abdomen soft, no tenderness, rebound or guarding. Musculoskeletal: No tenderness or deformity noted. +2 pitting edema of bilateral lower extremities extending to the proximal tibias. Nonpitting edema of the dorsal side of the left hand. Skin: Warm and dry. No rash, erythema, pallor or cyanosis Psychiatric: Appropriate mood and affect for situation. Neurological: Alert and keenly responsive. CN II-XII grossly intact, moving all extremities equally and fully. MDM: - Vitals signs showed hypertension - History obtained via patient. History as above. - Chronic conditions affecting care: CKD; HTN; prostate cancer - Differential diagnoses include, but are not limited to: Dysrhythmia; electrolyte abnormality; ACS; pulmonary edema; pneumonia; DVT; lymphedema - Order placed for continuous cardiac monitoring. At this time, monitor showed rate of 95 bpm with normal sinus rhythm, per my interpretation. - External medical records reviewed. Primary care visit note dated from today was reviewed. Patient was sent to the emergency department due to A-fib with RVR. He has notable medical noncompliance and they referred him to the ER for further workup. - EKG image interpreted by myself showed normal sinus rhythm. Rate 88 bpm. QT 368. No acute ischemic changes. - Laboratory workup interpreted by myself showed normal WBC; anemia (Hgb 10.6); normal PT/INR; stable electrolytes; baseline CKD (Cr 1.86); elevated troponin (39.5); elevated BNP (1565) - CXR image reviewed by myself showed some pulmonary vascular congestion, per my interpretation. Radiology notes atelectasis versus early pneumonia in the right lung base. - Patient is not having any cough, fever or shortness of breath complaints, so potential pneumonia read by radiology seems less likely. - Repeat troponin slightly more elevated at 40.3 - Patient given 40 mg IV lasix - Patient has not had an echocardiogram performed recently. Will admit to hospitalist service. - Discussion was had with manager of case about patient's case and need for admission - Hospitalist, Dr. Whelan, consulted for admission at 19:25 - Patient admitted to [facility] hospitalist service for further evaluation and management. ASSESSMENT AND PLAN: Diagnosis: Bilateral lower extremity edema; acute CHF exacerbation; elevated troponin; elevated BNP Plan: Admit Past Med/Surg History Problem List (Updated 06/14/25 @ 19:40 by Maricel Tong MD) Elevated brain natriuretic peptide (BNP) level (Acute) Bilateral leg edema (Acute) Elevated troponin (Acute) Acute CHF (Acute) Atrial fibrillation with RVR Renal mass Acute kidney injury Chronic renal disease, stage 4, severely decreased glomerular filtration rate (GFR) between 15-29 mL/min/1.73 square meter Melena Parkinsonism CKD (chronic kidney disease), stage III Weight loss Pneumonia due to COVID-19 virus Anemia CKD (chronic kidney disease), stage II COVID-19 Vitamin D deficiency B12 deficiency Asymptomatic hypertensive urgency Altered mental status (Acute) Generalized weakness (Acute) Fall (Acute) Elevated troponin (Acute) Abnormal ECG (Acute) Hypomagnesemia (Acute) Adult failure to thrive (Acute) Hypokalemia Acute kidney injury superimposed on CKD Tobacco use disorder Stroke-like symptoms Peripheral neuropathy Depression Urge incontinence History of colon cancer History of prostate cancer (Chronic) Crohn's disease HTN (hypertension) Transient cerebral ischemia (Acute) Dizziness (Acute) Medical History Dementia Aphasia Tremor Surgical History S/P partial colectomy S/P TURP Family History Daughter Cancer Ovarian cancer Other Hypertension Denies family history of Prostate cancer Myocardial infarction Breast cancer Colorectal cancer Social History Smoking Status: Current every day smoker Tobacco Type: Cigarettes Age Started Using Tobacco: 76; packs per day: 0.50; Cigarettes Per Day: 1/2 pack; Second Hand Exposure: Yes; Do You Dip or Chew Tobacco: No; Hx Alcohol Use: No Hx Substance Use: No Preferred Language: Zambian Communication Ability: Effective Visual Impairment: No Limitations Hearing Ability: Normal Signal Intelligence Analyst Required: No Beliefs That Will Affect Care: None marital status: Current Living Situation: Spouse current occupational status: retired Feels Safe at Home: Yes Childhood Exposure to Second-Hand Smoke: Yes Diet: regular caffeine: Yes (1 coffee 1 pepsi daily) Dental Care, Regularly: No Physical Activity Frequency: Does not Exercise Seatbelt Use: always Sunscreen Use: No Do you think of yourself as: straight/heterosexual Gender Identity: Male Assistive Devices: Cane, Walker and Wheelchair Allergies Allergies Allergy/AdvReac Type Severity Reaction Status Date / Time Sulfa (Sulfonamide Allergy Intermediate HIVES Verified 06/14/25 13:51 Antibiotics) Home Meds Previous Rx's Medication Instructions Recorded furosemide 20 mg tablet (Lasix) 20 mg PO DAILY #30 tabs 05/10/25 Results & Data (ED) Vital Signs Vital Signs - 24 hr 06/14/25 14:44 06/14/25 17:46 06/14/25 18:00 Temperature 36.4 C L Temperature Source Temporal Artery Scan Pulse Rate 88 90 Pulse Rate [Left Apical] 94 H Pulse Rhythm Regular Pulse Strength Normal Respiratory Rate 20 17 Respiratory Effort / Characteristics Non-Labored Spontaneous Non-Labored Spontaneous Respiratory Depth Normal Normal Respiratory Pattern Regular Blood Pressure 182/110 H Blood Pressure [Right Arm] 196/139 H Blood Pressure Mean 134 Blood Pressure Mean [Right Arm] 158 Blood Pressure Position Sitting Blood Pressure Position [Right Arm] Pulse Oximetry 96 95 Oxygen Delivery Method Room Air Room Air Sepsis Recent Fever Within 48 Hours No Sepsis New/Unexplained Change in Mental Status N/A Sepsis Action Taken by Nursing No Action Required 06/14/25 19:20 06/14/25 19:20 Temperature Temperature Source Pulse Rate Pulse Rate [Left Apical] 103 H Pulse Rhythm Pulse Strength Respiratory Rate 20 Respiratory Effort / Characteristics Non-Labored Spontaneous Respiratory Depth Normal Respiratory Pattern Regular Blood Pressure Blood Pressure [Right Arm] 222/148 H Blood Pressure Mean Blood Pressure Mean [Right Arm] 172 Blood Pressure Position Blood Pressure Position [Right Arm] Semi-fowlers Pulse Oximetry 95 95 Oxygen Delivery Method Room Air Room Air Sepsis Recent Fever Within 48 Hours Sepsis New/Unexplained Change in Mental Status Sepsis Action Taken by Nursing Laboratory Data 06/14/25 15:27 06/14/25 15:27 Lab Results 06/14/25 06/14/25 06/14/25 Range/Units 15:27 17:09 18:09 WBC 6.54 (4.8-10.8) K/ul RBC 3.80 L (4.70-6.10) M/uL Hgb 10.6 L (14.0-18.0) g/dl Hct 34.0 L (42.0-52.0) % MCV 89.5 (80.0-100.0) fL MCH 27.9 (25.0-34.0) pg MCHC 31.2 L (32.0-36.0) g/dL RDW Std Deviation 50.4 H (36.4-46.3) fL RDW Coeff of Ruiz 15.5 H (11.5-14.5) % Plt Count 272 (130-400) K/uL MPV 10.0 (9.4-12.4) fL Immature Gran % (Auto) 0.2 % Neut % (Auto) 68.6 % Lymph % (Auto) 16.2 % Morton % (Auto) 9.9 % Eos % (Auto) 4.3 % Baso % (Auto) 0.8 % Neut # (Auto) 4.49 (1.40-6.50) K/uL Lymph # (Auto) 1.06 L (1.20-3.40) K/uL Morton # (Auto) 0.65 H (0.11-0.59) K/uL Eos # (Auto) 0.28 (0.00-0.50) K/uL Baso # (Auto) 0.05 (0.00-0.20) K/uL Immature Gran # (Auto) 0.01 (0.01-0.20) K/uL PT 11.2 (9.0-12.0) Seconds INR 1.0 (0.9-1.1) APTT 28 (21-31) Seconds PTT Ratio 1.0 Sodium 143 (136-145) mmol/L Potassium 3.5 (3.5-5.1) mmol/L Chloride 107 (98-107) mmol/L Carbon Dioxide 29 (21-32) mmol/L Anion Gap 7 (3-11) BUN 22 (6-23) mg/dl Creatinine 1.86 H (0.6-1.4) mg/dl Est Cr Clr Drug Dosing Not Reportable eGFR 35.68 BUN/Creatinine Ratio 11.8 (10-20) Glucose 83 (70-99(Fasting)) mg/dl Calcium 9.5 (8.6-10.3) mg/dl Total Bilirubin 0.6 (0.2-1.0) mg/dl AST 9 L (13-39) U/L ALT 5 L (7-52) U/L Alkaline Phosphatase 80 (34-104) U/L Troponin I High Sens 39.5 H 40.3 H (0-20) pg/ml B-Natriuretic Peptide 1565 H (0-100) pg/ml Total Protein 7.1 (6.0-8.3) gm/dl Albumin 3.2 L (3.4-5.0) gm/dl Globulin 3.9 (2.5-4.0) gm/dl Albumin/Globulin Ratio 0.8 L (0.9-2) Administered Medications Discontinued Medications Furosemide (Furosemide 40 Mg/4 Ml Vial) 40 mg IV ONE ONE Stop: 06/14/25 18:54 Last Admin: 06/14/25 19:23 Dose: 40 mg Documented By: ASAF Imaging Data Radiologist's Impression: Chest X-Ray 06/14/25 14:48 XR chest 1V not portable CLINICAL HISTORY: Chest pain, nonspecific COMPARISON STUDY: 01/14/2025 FINDINGS: Stable mild cardiomegaly without pulmonary vascular congestion. There is interval stranding opacity at the right lung base. No other consolidation or pleural effusion. No pneumothorax. IMPRESSION: Atelectasis versus early pneumonia right lung base. ACT 112: Negative or not required by law. Electronically signed by: Marcus Perez M.D. 06/14/2025 3:53 PM Discharge Plan Visit Data Chief Complaint: Cardiac Assessment Stated Complaint: HEART ISSUES, IRREGULAR HEARTBEAT, REF BY DOC ED Provider: Maricel Tong Discharge Problem: Acute CHF, Elevated troponin, Bilateral leg edema, Elevated brain natriuretic peptide (BNP) level Condition: Fair Forms Stand Alone Forms: My [facility] [employer] Prescriptions Prescriptions: No Action furosemide [Lasix] 20 mg tablet 20 mg PO DAILY Qty: 30 2RF Referrals Referrals: Tina Romo DO [Primary Care Provider] -
[2025-06-14] MEDS: FUROSEMIDE 40 MG/4 ML VIAL IV ONE (19:23)
--- NOTE | 2025-06-14 19:29 | History & Physical Report ---
Date of Service June 14, 2025 Assessment & Plan (1) Hypervolemia associated with renal insufficiency: (2) CKD (chronic kidney disease), stage III: (3) Renal mass: (4) HTN (hypertension): (5) Hypomagnesemia: (6) Asymptomatic hypertensive urgency: (7) Anemia: Plan 80 year old male presents to the ER with bilateral leg and unilateral (left) arm swelling. #Hypervolemia / CKD stage G3b/A2 Suspect secondary to uncontrolled hypertension and chronic kidney disease with proteinuria. UA + Protein/Cr ratio and renal US to assess for CKD as cause TTE to assess for cardiac cause Due to one sided upper extremity swelling and generally malnourished appearance could consider CT venogram pending clinical course with CT C/A/P to assess for malignant cause Start Lasix 40mg IV BID Strict I&Os, daily labs, Low Na diet #Uncontrolled Hypertension Previously taking carvedilol and amlodipine in November 2023 Will restart carvedilol 3.125mg PO BID along with Lasix as above #Hypomagnesemia Mg level 1.6, Mg sulfate 1g IV, repeat level with AM labs Abnormal EKG Noted PCP mentioned a. fib with RVR on office EKG, I do not see this scanned for review. No current atrial fibrillation. Will monitor on telemetry overnight. Possible Parkinson's disease (noted on prior hospitalist progress notes although Parkinsonism notes on prior family practice notes) No current resting tremor, no rigidity of upper extremities If having issues with walking, bradykinesia consider restarting Sinemet which he was previously taking but not for many months and no current overt Parkinson's feature on exam #Normocytic anemia Stable but in setting of CKD will get basic labs in AM Iron studies, B12, folate, LDH, retic count VTE Prophylaxis - heparin 5000 units SQ BID Disposition - observation to med/tele Admission and Anticipated Discharge Date Admission Date: June 14, 2025 History of Present Illness Chief Complaint: Bilateral leg and left arm swelling Primary Care Provider: DO Tray Butler Wibaux is an 80 year old male presents to the ER with bilateral leg and left arm swelling. Swelling ongoing for last 4-6 weeks. Not getting worse. No chest pain, shortness of breath, palpitations, claudication, fever, chills, urinary or gastrointestinal symptoms. Per prior PCP notes he is non-compliant with medications which he admits to myself today. He reports his takes care of his medications but on prior notes she reports he does not take his medications. He has been picking up his furosemide intermittently over the last year but consistently since May. He reports the furosemide has not made a difference to the swelling but it also has not got worse. Erythema on his legs is no worse recently but he reports is itchy. On review of his past medications he was previously on carvedilol - he is unsure why he stopped but he just tells me it wasn't doing any good so he just stopped it not based on a doctor's advice. On amlodipine in 2022 but not prescribed in the last year. He last picked up Sinemet in October last year - he doesn't remember taking this or what is was for. He lives with his who he says handles all of his medications. No answer on number provided for his but voicemail left. Allergies Allergy/AdvReac Type Severity Reaction Status Date / Time Sulfa (Sulfonamide Allergy Intermediate HIVES Verified 06/14/25 19:47 Antibiotics) Home Medications Medication Instructions Recorded Confirmed Type furosemide 20 mg tablet (Lasix) 20 mg PO DAILY #30 tabs 05/10/25 06/14/25 Rx Past Med/Surg History Problem List (Updated 06/15/25 @ 01:31 by Gerald Whelan MD) Hypervolemia associated with renal insufficiency Elevated brain natriuretic peptide (BNP) level (Acute) Bilateral leg edema (Acute) Elevated troponin (Acute) Acute CHF (Acute) Renal mass Chronic renal disease, stage 4, severely decreased glomerular filtration rate (GFR) between 15-29 mL/min/1.73 square meter Melena Parkinsonism CKD (chronic kidney disease), stage III Weight loss Pneumonia due to COVID-19 virus Anemia COVID-19 Vitamin D deficiency B12 deficiency Asymptomatic hypertensive urgency Altered mental status (Acute) Generalized weakness (Acute) Fall (Acute) Elevated troponin (Acute) Abnormal ECG (Acute) Hypomagnesemia (Acute) Adult failure to thrive (Acute) Hypokalemia Tobacco use disorder Stroke-like symptoms Peripheral neuropathy Depression Urge incontinence History of colon cancer History of prostate cancer (Chronic) Crohn's disease HTN (hypertension) Transient cerebral ischemia (Acute) Dizziness (Acute) Medical History Dementia Aphasia Tremor Surgical History S/P partial colectomy S/P TURP Family History Daughter Cancer Ovarian cancer Other Hypertension Denies family history of Prostate cancer Myocardial infarction Breast cancer Colorectal cancer Social History Smoking Status: Current every day smoker Tobacco Type: Cigarettes Age Started Using Tobacco: 76; packs per day: 0.50; Cigarettes Per Day: 1/2 pack; Second Hand Exposure: Yes; Do You Dip or Chew Tobacco: No; Hx Alcohol Use: No Hx Substance Use: No Preferred Language: Emirati Communication Ability: Effective Visual Impairment: No Limitations Hearing Ability: Normal Food Service Substitute Required: No Beliefs That Will Affect Care: None marital status: Current Living Situation: Spouse current occupational status: retired Feels Safe at Home: Yes Childhood Exposure to Second-Hand Smoke: Yes Diet: regular caffeine: Yes (1 coffee 1 pepsi daily) Dental Care, Regularly: No Physical Activity Frequency: Does not Exercise Seatbelt Use: always Sunscreen Use: No Do you think of yourself as: straight/heterosexual Gender Identity: Male Assistive Devices: Cane, Walker and Wheelchair Review of Systems Review of Systems: All systems reviewed & are unremarkable except as noted in HPI & below Physical Exam Constitutional: well developed; + not well nourished and no acute distress Eyes: PERRL, conjunctivae normal, anicteric sclerae ENMT: external ear and nose normal, oropharynx normal Respiratory: normal respiratory effort, lungs clear to auscultation Cardiovascular: Rate/Rhythm: regular rate and regular rhythm Heart Sounds: + murmur (systolic LUSB) Gastrointestinal (Abdomen): normal bowel sounds, soft, nontender, no hepatosplenomegaly Musculoskeletal: no cyanosis or clubbing, extremities motor strength 5/5 Skin: + erythema (bilateral lower extremity ex coriation estrada and venous stasis changes) Neurologic: moves all extremities and awake; no focal motor deficits and not confused Motor/Sensory: no pronator drift Psychiatric: A+Ox3, euthymic affect Results & Data Results & Data Vital Signs (Past 12 Hours) Vital Signs Temp Pulse Pulse Resp BP BP Pulse Ox 06/14/25 19:20 103 H 20 222/148 H 95 06/14/25 19:20 95 06/14/25 18:00 90 06/14/25 17:46 94 H 17 196/139 H 95 06/14/25 14:44 36.4 C L 88 20 182/110 H 96 O2 Del Method 06/14/25 19:20 Room Air 06/14/25 19:20 Room Air 06/14/25 18:00 06/14/25 17:46 Room Air 06/14/25 14:44 Room Air Laboratory Results Abnormal lab results 06/14/25 06/14/25 06/14/25 Range/Units 15:27 17:09 18:09 RBC 3.80 L (4.70-6.10) M/uL Hgb 10.6 L (14.0-18.0) g/dl Hct 34.0 L (42.0-52.0) % MCHC 31.2 L (32.0-36.0) g/dL RDW Std Deviation 50.4 H (36.4-46.3) fL RDW Coeff of Ruiz 15.5 H (11.5-14.5) % Lymph # (Auto) 1.06 L (1.20-3.40) K/uL Ness # (Auto) 0.65 H (0.11-0.59) K/uL Creatinine 1.86 H (0.6-1.4) mg/dl AST 9 L (13-39) U/L ALT 5 L (7-52) U/L Troponin I High Sens 39.5 H 40.3 H (0-20) pg/ml B-Natriuretic Peptide 1565 H (0-100) pg/ml Albumin 3.2 L (3.4-5.0) gm/dl Albumin/Globulin Ratio 0.8 L (0.9-2) Diagnostic Findings XR chest 1V not portable CLINICAL HISTORY: Chest pain, nonspecific COMPARISON STUDY: 01/14/2025 FINDINGS: Stable mild cardiomegaly without pulmonary vascular congestion. There is interval stranding opacity at the right lung base. No other consolidation or pleural effusion. No pneumothorax. IMPRESSION: Atelectasis versus early pneumonia right lung base. Medications Administered ER Medications Given: Furosemide 40mg IV ECG Rate (beats per minute): 88 Rhythm: normal sinus Findings: no acute ischemic change Comparison ECG Date: from (January 14, 2025) Change: the following changes noted (PACs, PVCs no longer present) Code Status & VTE Plan Code Status Full VTE Prophylaxis Plan VTE Prophylaxis will be ordered: Yes PG Care Time/CCT Total # of Minutes Spent Total Time Spent with Patient: Total time spent is greater than 50% in coordination of care (as documented) at patient's floor/unit and/or counseling patient: Coding Level of Care Code 25352 INT INP/OBS CARE 3/75MIN Diagnoses Hypervolemia associated with renal insufficiency E87.70; N28.9 CKD (chronic kidney disease), stage III N18.30 Renal mass N28.89 HTN (hypertension) I10 Hypomagnesemia E83.42 Asymptomatic hypertensive urgency I16.0 Anemia D64.9
[2025-06-14 20:11] LABS: Appearance Urine Clear (Clear); Bacteria Urine Automated None Seen (None Seen); Cast Urine Automated 0-2 /lpf (0-2); Epithelial Cell Urine Auto 0-2 /hpf (0-2); Glucose Urine UA Negative (Negative); RBC Urine Automated 0-2 /hpf (0-2); WBC Urine Automated 0-5 /hpf (0-5)
[2025-06-14 20:28] LABS: Magnesium 1.6 mg/dl (1.7-2.4)
[2025-06-14 21:54] LABS: Protein Creatinine Ratio Urine 2.4 (0-0.2); Total Protein Urine Random 39.4 mg/dl (0-11.9)
--- NOTE | 2025-06-14 22:44 | Ultrasound Report ---
Exam(s): US RENAL EXAM: US Retroperitoneal Limited, Renal CLINICAL HISTORY: Reason for exam: CKD, worsening hypervolemia. TECHNIQUE: Real-time limited ultrasound of the retroperitoneum with image documentation. COMPARISON: 08/06/2024 FINDINGS: Right kidney: Right kidney measures 9 cm. No hydronephrosis. A few cortical cysts largest in the superior pole measuring 7.3 x 7.3 x 6.7 centimeters. Left kidney: Left kidney measures 9.5 cm. A few cortical cysts. Potentially solid lesion measuring 1.4 x 1.5 x 1.7 cm in the midpole. No hydronephrosis. Bladder: Trabeculated bladder. Other findings: Prostatomegaly. IMPRESSION: 1. No hydronephrosis. 2. Complex lesion in the left midpole measuring up to 1.7 cm again visualized which appears unchanged. Consider nonemergent renal protocol MRI for further characterization. 3. Trabeculated bladder. 4. Prostatomegaly. Electronically signed by: Ziyad Sandoval MD 06/14/25 22:43 PM
--- NOTE | 2025-06-14 22:47 | Ultrasound Report ---
Exam(s): US VENOUS LEFT UPPER EXTREMITY EXAM: US Duplex Left Upper Extremity Veins CLINICAL HISTORY: Reason for exam: unilateral UE swelling ?DVT. TECHNIQUE: Real-time duplex ultrasound scan of the left upper extremity veins integrating B-mode two-dimensional vascular structure, Doppler spectral analysis, color flow Doppler imaging and compression. COMPARISON: No relevant prior studies available. FINDINGS: Deep veins: No DVT in the internal jugular, subclavian, axillary, or brachial veins. Superficial veins: No thrombus in the visualized basilic and cephalic veins. Soft tissues: Subcutaneous soft tissue edema. IMPRESSION: No thrombus in the left upper extremity veins. Electronically signed by: Ziyad Sandoval MD 06/14/25 22:46 PM
--- NOTE | 2025-06-14 22:48 | Ultrasound Report ---
Exam(s): US VENOUS BILATERAL LOWER EXTREMITIES EXAM: US Duplex Bilateral Lower Extremities Veins CLINICAL HISTORY: Reason for exam: bilateral LE edema ?DVT. TECHNIQUE: Real-time duplex ultrasound scan of the bilateral lower extremity veins integrating B-mode two-dimensional vascular structure, Doppler spectral analysis, color flow Doppler imaging and compression. COMPARISON: No relevant prior studies available. FINDINGS: Right deep veins: Unremarkable. The visualized deep veins of the right lower extremity are compressible with color flow. No visualized thrombus. Right superficial veins: Unremarkable. Left deep veins: Unremarkable. The visualized deep veins of the left lower extremity are compressible with color flow. No visualized thrombus. Left superficial veins: Unremarkable. No visualized thrombus in the GSV. Soft tissues: Subcutaneous soft tissue edema. Matthews's cyst present on the right measuring 3.4 x 1.2 x 2.1 cm. IMPRESSION: 1. No DVT identified within the bilateral lower extremities. 2. Matthews's cyst present on the right measuring 3.4 x 1.2 x 2.1 cm. 3. Subcutaneous soft tissue edema. Electronically signed by: Ziyad Sandoval MD 06/14/25 22:47 PM
[2025-06-14] MEDS: HEPARIN SOD 5,000 UNIT/0.5 ML VIAL SQ SCH (23:50)
[2025-06-14] MEDS: MAGNESIUM SULFATE / D5W 1 GM/100 ML BAG IV ONE (23:50)
[2025-06-15 07:48] LABS: Hematocrit (blood only) 34.4 % (42.0-52.0); Hemoglobin 10.9 g/dl (14.0-18.0); Immature Granulocytes # (auto) 0.02 K/uL (0.01-0.20); Immature Granulocytes % (auto) 0.2 %; Mean Corpuscular Hemoglobin 28.2 pg (25.0-34.0); Mean Corpuscular Volume 88.9 fL (80.0-100.0); Platelet Count 262 K/uL (130-400); RDW Standard Deviation 48.7 fL (36.4-46.3); Red Blood Count 3.87 M/uL (4.70-6.10); Reticulocytes # 0.030 10^6/uL (0.020-0.100); White Blood Count 8.53 K/ul (4.8-10.8)
[2025-06-15] MEDS: FUROSEMIDE 40 MG/4 ML VIAL IV SCH (08:19)
[2025-06-15 08:31] LABS: Folate (Folic Acid),Ser orPlas 12.89 ng/ml (>5.38)
[2025-06-15 08:32] LABS: Vitamin B12 164.0 pg/ml (180-914)
[2025-06-15 08:39] LABS: Anion Gap 7.0 (3-11); Blood Urea Nitrogen 24.0 mg/dl (6-23); Calcium 9.3 mg/dl (8.6-10.3); Carbon Dioxide 30.0 mmol/L (21-32); Chloride 106.0 mmol/L (98-107); Creatinine Clr Calc Pharmacy 27.2 ml/min; Glucose 75.0 mg/dl (70-99(Fasting)); Magnesium 1.8 mg/dl (1.7-2.4); Potassium 3.6 mmol/L (3.5-5.1); Sodium 143.0 mmol/L (136-145)
[2025-06-15 08:53] LABS: Thyroid Stimulating Hormone 1.32 uIu/ml (0.300-4.500)
[2025-06-15 09:00] LABS: Ferritin 24.3 ng/ml (8-388)
[2025-06-15] MEDS ORDERED: FUROSEMIDE 40 MG/4 ML VIAL IV SCH (09:00)
[2025-06-15] MEDS: PERFLUTREN LIPID MICROSPHERE (DEFINITY) IV ONE (09:54)
--- NOTE | 2025-06-15 11:01 | Hospitalist Progress Note ---
Date of Service June 15, 2025 Assessment & Plan (1) Acute diastolic CHF (congestive heart failure): Plan: Continue parenteral Lasix diuresis. Await cardiac echo results. BNP is markedly elevated. Lungs are clear on examination however and satisfactory oxygenation so far on room air (2) Uncontrolled hypertension: Plan: Coreg has been started. As needed IV hydralazine. (3) CKD (chronic kidney disease), stage III: Plan: Monitor urine output. Serial labs (4) Renal mass: Plan: Incidental finding of left renal mass that will need further outpatient evaluation (5) Hypomagnesemia: Plan: Mild on admission. Corrected with parenteral replacement Plan Hopeful discharge to home tomorrow, June 16 Admission and Anticipated Discharge Date Admission Date: June 14, 2025 Subjective Alert and oriented. No distress. He presented with bilateral lower extremity edema and left arm edema. His blood pressure is also uncontrolled. Chest x-ray negative for overt CHF however but BNP is quite elevated. I suspect he is on the verge of overt acute diastolic CHF. He is diuresing well with parenteral Lasix. Bilateral lower extremity venous Doppler studies negative for DVT. Renal ultrasound reveals a left renal lesion that we will need further outpatient follow-up. Thyroid profile is pending. Parenteral hydralazine as needed for elevated blood pressure. Coreg has been started. Hopefully he can go home tomorrow, June 16 Review of Systems 2 Review of Systems: Constitutionalno fever or chills ENTno blurred vision, no double vision, no epistaxis, no sore throat Respiratoryno cough, no wheezing, no shortness of breath Cardiacno palpitations, no chest pain, no syncope Madelin nausea, vomiting, diarrhea, melena, hematochezia GUno urinary retention, no urinary incontinence, no dysuria, no hematuria Musculoskeletalno joint pain, no muscle tenderness. He does have 1+ pitting edema bilateral lower extremities below the knees. His left arm does seem a little bit more edematous than the right arm Skinno bruising, no rashes, no pruritus. There is evidence of stasis dermatitis involving both lower extremities below the knee Neurono isolated weakness, no paresthesia, no weakness Psychno depression, no anxiety Physical Exam 2 Physical Exam: General-alert and oriented x3, no fever, no chills HEENT-head atraumatic and normocephalic, pupils equal and reactive to light, extraocular muscles intact Neck-no lymphadenopathy or thyromegaly, trachea midline Chest-clear to auscultation. No rales, wheezing or rhonchi Cardiac-regular rate and rhythm, normal S1 and S2 Abdomen-normal bowel sounds, no hepatosplenomegaly Extremities-no cyanosis. 1+ bilateral lower extremity edema below the knees. Evidence of chronic venous stasis dermatitis both lower legs. Left arm seems to be slightly more edematous than the right arm Neuro-cranial nerves II through XII intact, motor and sensory function within normal limits, strength symmetrical, no focal deficits Psych-normal affect, normal mood Results & Data Results & Data Vital Signs (Past 12 Hours) Vital Signs Temp Pulse Pulse Resp BP BP Pulse Ox 06/15/25 10:50 36.8 C 86 20 166/98 H 97 06/15/25 07:30 36.6 C 87 20 187/116 H 178/109 H 95 06/15/25 06:53 70 06/15/25 03:30 36.7 C 77 16 178/101 H 96 06/15/25 01:19 06/14/25 23:06 93 H O2 Del Method 06/15/25 10:50 Room Air 06/15/25 07:30 Room Air 06/15/25 06:53 06/15/25 03:30 Room Air 06/15/25 01:19 Room Air 06/14/25 23:06 Laboratory Results 06/15/25 07:30 06/15/25 07:30 PG Care Time/CCT Total # of Minutes Spent Total Time Spent with Patient: Total time spent is greater than 50% in coordination of care (as documented) at patient's floor/unit and/or counseling patient: Coding Level of Care Code 37805 SUB INP/OBS CARE 3/50MIN Diagnoses Acute diastolic CHF (congestive heart failure) I50.31 Uncontrolled hypertension I10 CKD (chronic kidney disease), stage III N18.30 Renal mass N28.89 Hypomagnesemia E83.42
--- NOTE | 2025-06-15 11:03 | XCELERA ---
[id number]
--- NOTE | 2025-06-15 11:21 | Electrocardiogram Report ---
Test Reason : Blood Pressure : */* mmHG Vent. Rate : 88 BPM Atrial Rate : 88 BPM P-R Int : 178 ms QRS Dur : 94 ms QT Int : 368 ms P-R-T Axes : 57 41 191 degrees QTcB Int : 445 ms Normal sinus rhythm Left ventricular hypertrophy with repolarization abnormality Abnormal ECG When compared with ECG of 14-Jan-2025 15:15, Premature ventricular complexes are no longer Present Premature atrial complexes are no longer Present Confirmed by Shaka Dale ([id number]) on 06/15/2025 11:20:36 AM Referred By: Confirmed By: Shaka Dale
[2025-06-16 08:05] LABS: Anion Gap 7.0 (3-11); Blood Urea Nitrogen 21.0 mg/dl (6-23); Calcium 9.5 mg/dl (8.6-10.3); Carbon Dioxide 32.0 mmol/L (21-32); Chloride 103.0 mmol/L (98-107); Creatinine Clr Calc Pharmacy 23.8 ml/min; Glucose 85.0 mg/dl (70-99(Fasting)); Magnesium 1.6 mg/dl (1.7-2.4); Potassium 3.1 mmol/L (3.5-5.1); Sodium 142.0 mmol/L (136-145)
[2025-06-16] MEDS: POTASSIUM CHLORIDE CRTAB 20 MEQ TABCR PO STA (09:33)
--- NOTE | 2025-06-16 14:02 | Hospitalist Progress Note ---
Date of Service June 16, 2025 Assessment & Plan (1) Acute diastolic CHF (congestive heart failure): Plan: Discontinue Lasix today as creatinine is trending up. Will switch to p.o. Lasix likely tomorrow provided renal function stable Echo findings reviewed. (2) Uncontrolled hypertension: Plan: Coreg has been started. As needed IV hydralazine. (3) CKD (chronic kidney disease), stage III: Plan: Monitor urine output. Serial labs (4) Renal mass: Plan: Incidental finding of left renal mass that will need further outpatient evaluation (5) Hypomagnesemia: Plan: Mild on admission. Corrected with parenteral replacement Plan Likely discharge in a day or 2 Admission and Anticipated Discharge Date Admission Date: June 14, 2025 Subjective Patient feels well overall. Says that his leg swelling is improving. He is not short of breath. Denies chest pain. Blood pressure fairly well-controlled. Nurse reported no concerns. Patient was seen and examined at 11:05 AM Review of Systems Review of Systems: All systems reviewed & are unremarkable except as noted in Subjective Physical Exam Physical Exam: General: Awake, conversant. Frail looking elderly male Heart: S1, S2/regular rate and rhythm, no murmur rubs or gallops Lungs: Clear to auscultation bilaterally. Normal effort Abdomen: Soft/nontender/nondistended. No hepatosplenomegaly Extremities: No clubbing/cyanosis. 1+ pitting bilateral edema Behavior: Appropriate, cooperative Results & Data Results & Data Vital Signs (Past 12 Hours) Vital Signs Temp Pulse Pulse Resp BP BP Pulse Ox 06/16/25 11:24 36.7 C 55 L 18 127/79 98 06/16/25 08:28 36.7 C 74 20 154/95 H 96 06/16/25 08:01 86 06/16/25 03:08 36.7 C 70 16 148/78 H 95 O2 Del Method 06/16/25 11:24 Room Air 06/16/25 08:28 Room Air 06/16/25 08:01 06/16/25 03:08 Room Air Laboratory Results Abnormal lab results 06/16/25 Range/Units 07:29 Potassium 3.1 L (3.5-5.1) mmol/L Creatinine 2.03 H (0.6-1.4) mg/dl Magnesium 1.6 L (1.7-2.4) mg/dl PG Care Time/CCT Total # of Minutes Spent Total Time Spent with Patient: Total time spent is greater than 50% in coordination of care (as documented) at patient's floor/unit and/or counseling patient: Coding Level of Care Code 27915 SUB INP/OBS CARE 2/35MIN Diagnoses Acute diastolic CHF (congestive heart failure) I50.31 Uncontrolled hypertension I10 CKD (chronic kidney disease), stage III N18.30 Renal mass N28.89 Hypomagnesemia E83.42
[2025-06-17 04:10] VITALS: RESP 18
[2025-06-17 07:47] LABS: Anion Gap 6.0 (3-11); Blood Urea Nitrogen 23.0 mg/dl (6-23); Calcium 8.7 mg/dl (8.6-10.3); Carbon Dioxide 29.0 mmol/L (21-32); Chloride 108.0 mmol/L (98-107); Creatinine Clr Calc Pharmacy 24.5 ml/min; Glucose 79.0 mg/dl (70-99(Fasting)); Magnesium 1.5 mg/dl (1.7-2.4); Potassium 3.0 mmol/L (3.5-5.1); Sodium 143.0 mmol/L (136-145)
[2025-06-17] MEDS: POTASSIUM CHLORIDE / WTR 10 MEQ/100 ML PLCT IV SCH (09:00)
[2025-06-17] MEDS: POTASSIUM CHLORIDE CRTAB 20 MEQ TABCR PO STA (09:00)
[2025-06-17] MEDS: FUROSEMIDE 40 MG TAB PO SCH (10:20)
--- NOTE | 2025-06-17 13:47 | Hospitalist Progress Note ---
Date of Service June 17, 2025 Assessment & Plan (1) Acute diastolic CHF (congestive heart failure): Plan: Discontinued IV Lasix Start p.o. Lasix at 40 mg daily. This is higher than his previous home dose of 20 mg daily. Plan to discharge him on this dose. Echo findings reviewed. Replete potassium (2) Uncontrolled hypertension: Plan: Coreg has been started. As needed IV hydralazine. (3) CKD (chronic kidney disease), stage III: Plan: Monitor urine output. Serial labs Stable despite diuretics (4) Renal mass: Plan: Incidental finding of left renal mass that will need further outpatient evaluation (5) Hypomagnesemia: Plan: Mild on admission. Corrected with parenteral replacement Plan Likely discharge tomorrow 06/18 Admission and Anticipated Discharge Date Admission Date: June 14, 2025 Subjective Patient feels well overall. Denies chest pain or shortness of breath. Review of Systems Review of Systems: All systems reviewed & are unremarkable except as noted in Subjective Physical Exam Physical Exam: General: Awake, conversant. Frail looking elderly male Heart: S1, S2/regular rate and rhythm, no murmur rubs or gallops Lungs: Clear to auscultation bilaterally. Normal effort Abdomen: Soft/nontender/nondistended. No hepatosplenomegaly Extremities: No clubbing/cyanosis. 1+ pitting bilateral edema Behavior: Appropriate, cooperative Results & Data Results & Data Vital Signs (Past 12 Hours) Vital Signs Temp Pulse Pulse Resp BP BP Pulse Ox 06/17/25 11:33 36.7 C 81 18 155/97 H 96 06/17/25 07:38 36.6 C 72 18 134/79 96 06/17/25 07:20 87 06/17/25 04:09 36.5 C 53 L 18 93/59 L 98 O2 Del Method 06/17/25 11:33 Room Air 06/17/25 07:38 Room Air 06/17/25 07:20 06/17/25 04:09 Room Air PG Care Time/CCT Total # of Minutes Spent Total Time Spent with Patient: Total time spent is greater than 50% in coordination of care (as documented) at patient's floor/unit and/or counseling patient: Coding Level of Care Code 69435 SUB INP/OBS CARE 2/35MIN Diagnoses Acute diastolic CHF (congestive heart failure) I50.31 Uncontrolled hypertension I10 CKD (chronic kidney disease), stage III N18.30 Renal mass N28.89 Hypomagnesemia E83.42
[2025-06-18 07:17] VITALS: PULSE 72; TEMP 98.2; O2SAT 97
[2025-06-18 09:02] LABS: Anion Gap 6.0 (3-11); Blood Urea Nitrogen 19.0 mg/dl (6-23); Calcium 9.2 mg/dl (8.6-10.3); Carbon Dioxide 30.0 mmol/L (21-32); Chloride 107.0 mmol/L (98-107); Creatinine Clr Calc Pharmacy 26.7 ml/min; Glucose 83.0 mg/dl (70-99(Fasting)); Potassium 3.7 mmol/L (3.5-5.1); Sodium 143.0 mmol/L (136-145)
--- NOTE | 2025-06-18 10:11 | Discharge Summary ---
Date of Service June 18, 2025 Admission HPI Per Admitting Provider Tray Fenton is an 80 year old male presents to the ER with bilateral leg and left arm swelling. Swelling ongoing for last 4-6 weeks. Not getting worse. No chest pain, shortness of breath, palpitations, claudication, fever, chills, urinary or gastrointestinal symptoms. Per prior PCP notes he is non-compliant with medications which he admits to myself today. He reports his takes care of his medications but on prior notes she reports he does not take his medications. He has been picking up his furosemide intermittently over the last year but consistently since May. He reports the furosemide has not made a d ifference to the swelling but it also has not got worse. Erythema on his legs is no worse recently but he reports is itchy. On review of his past medications he was previously on carvedilol - he is unsure why he stopped but he just tells me it wasn't doing any good so he just stopped it not based on a doctor's advice. On amlodipine in 2022 but not prescribed in the last year. He last picked up Sinemet in October last year - he doesn't remember taking this or what is was for. He lives with his who he says handles all of his medications. No answer on number provided for his but voicemail left. Principal Diagnosis Acute diastolic congestive heart failure, being discharged on higher dose of Lasix than previous home dose Uncontrolled hypertension CKD stage III Renal mass: Incidental finding. Will need further outpatient evaluation Discharge Exam General: Awake, conversant. Frail looking elderly male Heart: S1, S2/regular rate and rhythm, no murmur rubs or gallops Lungs: Clear to auscultation bilaterally. Normal effort Abdomen: Soft/nontender/nondistended. No hepatosplenomegaly Extremities: No clubbing/cyanosis. 1+ pitting bilateral edema Behavior: Appropriate, cooperative Discharge Data Allergies Allergy/AdvReac Type Severity Reaction Status Date / Time Sulfa (Sulfonamide Allergy Intermediate HIVES Verified 06/14/25 19:47 Antibiotics) Consultations 06/14/25 19:26 ED Decision to Admit Stat Ordered Studies 06/14/25 19:46 US venous doppler LE BI Stat US venous doppler UE LT Stat 06/14/25 19:53 US Renal Bladder [US renal/blad retro comp] Routine Hospital Course (1) Acute diastolic CHF (congestive heart failure): Discontinued IV Lasix Start p.o. Lasix at 40 mg daily. This is higher than his previous home dose of 20 mg daily. Plan to discharge him on this dose. Echo findings reviewed. Repleted potassium Being discharged with potassium supplements (2) Uncontrolled hypertension: Coreg and amlodipine have been started. (3) CKD (chronic kidney disease), stage III: Stable despite diuretics (4) Renal mass: Incidental finding of left renal mass that will need further outpatient evalua tion (5) Hypomagnesemia: Mild on admission. Corrected with parenteral replacement Plan Discharge to home today. Total Time Total Time Spent Total Time Spent (In Minutes): 35 Discharge Plan Discharge Items Patient Disposition: Home - Self-Care Reason For Visit: HYPERVOLEMIA, SECONDARY TO UNCONTROLLED HTN AND CK Discharge Diagnosis: Acute diastolic congestive heart failure, being discharged on higher dose of Lasix than previous home dose Uncontrolled hypertension CKD stage III Renal mass: Incidental finding. Will need further outpatient evaluation Condition on Discharge: Fair Activity: Resume your previous activity Non-emergency contact: Primary Care Provider Call non-emergency contact if: you have any medication questions and your symptoms worsen Follow-up/Referrals: Tina Romo DO [Primary Care Provider] - 06/22/25 2:00 pm (Hospital follow up on June 22 at 2 pm.) Diet: Heart Healthy and Low Sodium (2gm) Addtl Attending Provider Instructions: Advised to follow-up with PCP in 1 week Advised to note that the dose of Lasix has been increased Advised to note that you are being discharged on potassium tablets Pending Studies at Discharge: No Stand-Alone Forms: My [facility] Medications and DC Order Prescriptions: New furosemide 40 mg Tablet 40 mg PO QAM 30 Days Qty: 30 0RF carvedilol 3.125 mg Tablet 3.125 mg PO BIDM 30 Days Qty: 60 0RF amlodipine 5 mg Tablet 5 mg PO QAM 30 Days Qty: 30 0RF potassium chloride [Klor-Con] 20 mEq packet 40 meq PO DAILY Qty: 30 0RF Discontinued furosemide [Lasix] 20 mg tablet 20 mg PO DAILY Qty: 30 2RF Discharge Orders: Discharge Order (Routine); Ordered 06/18/25 Ordered By: Kristan Alonso Admission Data Admit Date/Time: 06/14/25 19:50 Attending Provider: Kristan Alonso Admit Provider: Gerald Whelan Primary Care Provider: Tina Romo Other Providers: Gerald Whelan Other Interventions: Discharge Summary Assessment (RN) Last Done: 06/18/25 11:10
[2025-06-18 11:13] VITALS: BP 153/78
== END 2025-06-18 11:58 | disposition home or self-care (01) | DRG 291 ==
LOC: SUATTDRO → ED 14:41 → 2N 19:50 → SUATTDRO 19:50 → 2N 22:36

== ENCOUNTER 2025-07-01 15:59 | Inpatient (IN) ==
[2025-07-01 16:32] LABS: Hematocrit (blood only) 33.2 % (42.0-52.0); Hemoglobin 10.5 g/dl (14.0-18.0); Mean Corpuscular Hemoglobin 28.2 pg (25.0-34.0); Mean Corpuscular Volume 89.2 fL (80.0-100.0); Platelet Count 334 K/uL (130-400); RDW Standard Deviation 50.0 fL (36.4-46.3); Red Blood Count 3.72 M/uL (4.70-6.10); White Blood Count 10.08 K/ul (4.8-10.8)
[2025-07-01 16:51] LABS: Alanine Aminotransferase 6.0 U/L (7-52); Albumin Globulin Ratio 0.8 (0.9-2); Alkaline Phosphatase 79.0 U/L (34-104); Anion Gap 7.0 (3-11); Bilirubin,Total 0.5 mg/dl (0.2-1.0); Blood Urea Nitrogen 33.0 mg/dl (6-23); Calcium 10.0 mg/dl (8.6-10.3); Carbon Dioxide 29.0 mmol/L (21-32); Chloride 104.0 mmol/L (98-107); Creatinine Clr Calc Pharmacy 22.9 ml/min; Globulin 4.1 gm/dl (2.5-4.0); Glucose 100.0 mg/dl (70-99(Fasting)); Magnesium 2.1 mg/dl (1.7-2.4); Potassium 3.7 mmol/L (3.5-5.1); Sodium 140.0 mmol/L (136-145); Total Protein 7.5 gm/dl (6.0-8.3)
[2025-07-01 17:04] LABS: INR 1.0 (0.9-1.1); Partial Thromboplastin Time 26 Seconds (21-31); Prothrombin Time 10.9 Seconds (9.0-12.0)
--- NOTE | 2025-07-01 19:27 | CT Scan Report ---
Clinical history: Hypertension Technique: Axial computed tomography images were obtained of the brain without intravenous contrast. Findings: There is diffuse cerebral atrophy, within expected limits for the patient's age. Areas of decreased attenuation are seen within the periventricular white matter, likely representing chronic small vessel ischemic disease. There is an old infarct of the left caudate nucleus. There is no definite sign of acute infarction. No intracranial hemorrhage is evident. No definite mass lesion is seen on this noncontrast examination. There is no midline shift or other form of herniation. No hydrocephalus is seen. No fracture is identified. The orbits and the visualized paranasal sinuses appear unremarkable. The mastoid air cells appear clear. Impression: 1. Cerebral atrophy and chronic small vessel ischemic disease 2. 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 No definite acute pathology Electronically signed by Marquez Caputo 07-01-2025 7:26 PM
--- NOTE | 2025-07-01 20:10 | Emergency Department Note ---
Impression & Plan Stroke-like symptom, Blurred vision ED Provider Note HISTORY OF PRESENT ILLNESS: Patient is an 80-year-old male presenting with right eye vision changes. Patient reports that he started having changes in his vision in his right eye starting about 3 weeks ago. He states he went to an eye doctor appointment today and was referred here. When asked to describe his vision changes, the patient reports that he is able to see out of his right eye, but everything seems blurry and fuzzy. He states that this started 3 to 4 weeks ago but has not progressed or gotten any worse. He denies any recent head injuries or chiropractic manipulation of his neck. He is not on any anticoagulation or antiplatelet therapy. He denies any numbness, tingling or weakness in his extremities. ROS: as above PHYSICAL EXAM: Constitutional: Patient appears in no acute distress. HENT: Head: Normocephalic and atraumatic. Eyes: EOMI, PERRL Mouth/Throat: Mucous membranes moist. Neck: Trachea midline. Neck supple. Cardiovascular: RRR, No murmurs, rubs or gallops. Intact distal pulses. Pulmonary/Chest: No respiratory distress. Breath sounds clear and equal bilaterally. No wheezes or rales. Abdominal: Abdomen soft, no tenderness, rebound or guarding. Musculoskeletal: No edema, tenderness or deformity noted. Skin: Warm and dry. No rash, erythema, pallor or cyanosis Psychiatric: Appropriate mood and affect for situation. Neurological: Alert and keenly responsive. CN II-XII grossly intact, moving all extremities equally and fully. MDM: - Vitals signs showed hypertension - History obtained via patient. History as above. - Chronic conditions affecting care: depression; CKD; CHF; dementia; HTN - Differential diagnoses include, but are not limited to: CVA; intracranial hemorrhage; dissection; ACS; hyperglycemia; diabetic retinopathy - Order placed for continuous cardiac monitoring. At this time, monitor showed rate of 84 bpm with normal sinus rhythm, per my interpretation. - External medical records reviewed. Primary care visit note dated 06/22/2025 was reviewed. Patient was seen for a hospital discharge visit after being admitted for CHF. - EKG image interpreted by myself showed normal sinus rhythm. Rate 92 bpm. QT 370. No acute ischemic changes. - Laboratory workup interpreted by myself showed normal WBC; normal PT/INR; stable electrolytes; CKD (Cr 2.14) - CT head wo contrast negative for acute pathology - MRI brain negative for obvious hemorrhage or ischemic changes - Unfortunately, given patient's CKD, unable to perform CTA imaging of the head/neck - Patient was reportedly cleared by the eye doctor today and sent to the ER for further workup. - Will admit to hospitalist service for further evaluation - Discussion was had with egg caser about patient's case and need for admission - Hospitalist consulted for admission - Patient admitted to [facility] hospitalist service for further evaluation and management. ASSESSMENT AND PLAN: Diagnosis: stroke like symptoms; blurred vision Plan: admit Past Med/Surg History Problem List (Updated 07/01/25 @ 21:52 by Maricel Tong MD) Blurred vision (Acute) Stroke-like symptom (Acute) Vision changes Uncontrolled hypertension Acute diastolic CHF (congestive heart failure) Hypervolemia associated with renal insufficiency Elevated brain natriuretic peptide (BNP) level (Acute) Bilateral leg edema (Acute) Elevated troponin (Acute) Acute CHF (Acute) Renal mass Chronic renal disease, stage 4, severely decreased glomerular filtration rate (GFR) between 15-29 mL/min/1.73 square meter Melena Parkinsonism CKD (chronic kidney disease), stage III Weight loss Pneumonia due to COVID-19 virus Anemia COVID-19 Vitamin D deficiency B12 deficiency Asymptomatic hypertensive urgency Altered mental status (Acute) Generalized weakness (Acute) Fall (Acute) Elevated troponin (Acute) Abnormal ECG (Acute) Hypomagnesemia (Acute) Adult failure to thrive (Acute) Hypokalemia Tobacco use disorder Stroke-like symptoms Peripheral neuropathy Depression Urge incontinence History of colon cancer History of prostate cancer (Chronic) Crohn's disease HTN (hypertension) Transient cerebral ischemia (Acute) Dizziness (Acute) Medical History Dementia Aphasia Tremor Surgical History S/P partial colectomy S/P TURP Family History Daughter Cancer Ovarian cancer Other Hypertension Denies family history of Prostate cancer Myocardial infarction Breast cancer Colorectal cancer Social History Smoking Status: Never smoker Tobacco Type: Cigarettes Age Started Using Tobacco: 76; packs per day: 0.50; Cigarettes Per Day: 1/2 pack; Second Hand Exposure: Yes; Do You Dip or Chew Tobacco: No; Hx Alcohol Use: No Hx Substance Use: No Preferred Language: Divehi Communication Ability: Effective Visual Impairment: No Limitations Hearing Ability: Normal Echocardiographer Required: No Beliefs That Will Affect Care: None marital status: Current Living Situation: Spouse current occupational status: retired Feels Safe at Home: Yes Childhood Exposure to Second-Hand Smoke: Yes Diet: regular caffeine: Yes (1 coffee 1 pepsi daily) Dental Care, Regularly: No Physical Activity Frequency: Does not Exercise Seatbelt Use: always Sunscreen Use: No Do you think of yourself as: straight/heterosexual Gender Identity: Male Assistive Devices: Cane and Walker Allergies Allergies Allergy/AdvReac Type Severity Reaction Status Date / Time Sulfa (Sulfonamide Allergy Intermediate HIVES Verified 06/22/25 14:02 Antibiotics) Home Meds Previous Rx's Medication Instructions Recorded amlodipine 5 mg tablet 5 mg PO QAM 1 month #30 tabs 06/18/25 carvedilol 3.125 mg tablet 3.125 mg PO BIDM 1 month #60 tabs 06/18/25 furosemide 40 mg tablet 40 mg PO QAM 1 month #30 tabs 06/18/25 potassium chloride 20 mEq oral 40 meq PO DAILY #30 ea 06/18/25 packet (Klor-Con) Results & Data (ED) Vital Signs Vital Signs - 24 hr 07/01/25 16:05 07/01/25 17:53 07/01/25 17:53 Temperature 36.6 C Temperature Source Temporal Artery Scan Pulse Rate 87 78 Pulse Rate [Apical] Respiratory Rate 20 22 Respiratory Effort / Characteristics Non-Labored Spontaneous Respiratory Depth Normal Respiratory Pattern Regular Blood Pressure 171/97 H Blood Pressure [Right Arm] Blood Pressure Mean 121 Blood Pressure Mean [Right Arm] Blood Pressure Position Sitting Blood Pressure Position [Right Arm] Pulse Oximetry 96 97 97 Oxygen Delivery Method Room Air Room Air Room Air Sepsis Recent Fever Within 48 Hours No Sepsis New/Unexplained Change in Mental Status N/A Sepsis Action Taken by Nursing No Action Required 07/01/25 17:53 07/01/25 19:12 07/01/25 19:14 Temperature Temperature Source Pulse Rate 86 Pulse Rate [Apical] 86 Respiratory Rate 19 Respiratory Effort / Characteristics Non-Labored Spontaneous Respiratory Depth Normal Respiratory Pattern Regular Blood Pressure Blood Pressure [Right Arm] 185/107 H 194/87 H Blood Pressure Mean Blood Pressure Mean [Right Arm] 133 122 Blood Pressure Position Blood Pressure Position [Right Arm] Pulse Oximetry 97 Oxygen Delivery Method Room Air Sepsis Recent Fever Within 48 Hours Sepsis New/Unexplained Change in Mental Status Sepsis Action Taken by Nursing 07/01/25 19:28 07/01/25 21:00 Temperature Temperature Source Pulse Rate Pulse Rate [Apical] 84 94 H Respiratory Rate 18 18 Respiratory Effort / Characteristics Non-Labored Non-Labored Spontaneous Respiratory Depth Normal Respiratory Pattern Regular Blood Pressure Blood Pressure [Right Arm] 156/91 H 148/97 H Blood Pressure Mean Blood Pressure Mean [Right Arm] 112 114 Blood Pressure Position Blood Pressure Position [Right Arm] Lying Lying Pulse Oximetry 95 95 Oxygen Delivery Method Room Air Room Air Sepsis Recent Fever Within 48 Hours Sepsis New/Unexplained Change in Mental Status Sepsis Action Taken by Nursing Laboratory Data 07/01/25 16:15 07/01/25 16:15 Lab Results 07/01/25 Range/Units 16:15 WBC 10.08 (4.8-10.8) K/ul RBC 3.72 L (4.70-6.10) M/uL Hgb 10.5 L (14.0-18.0) g/dl Hct 33.2 L (42.0-52.0) % MCV 89.2 (80.0-100.0) fL MCH 28.2 (25.0-34.0) pg MCHC 31.6 L (32.0-36.0) g/dL RDW Std Deviation 50.0 H (36.4-46.3) fL RDW Coeff of Ruiz 15.5 H (11.5-14.5) % Plt Count 334 (130-400) K/uL MPV 9.7 (9.4-12.4) fL PT 10.9 (9.0-12.0) Seconds INR 1.0 (0.9-1.1) APTT 26 (21-31) Seconds PTT Ratio 1.0 Sodium 140 (136-145) mmol/L Potassium 3.7 (3.5-5.1) mmol/L Chloride 104 (98-107) mmol/L Carbon Dioxide 29 (21-32) mmol/L Anion Gap 7 (3-11) BUN 33 H (6-23) mg/dl Creatinine 2.14 H (0.6-1.4) mg/dl Est Cr Clr Drug Dosing 22.9 ml/min eGFR 30.16 BUN/Creatinine Ratio 15.4 (10-20) Glucose 100 H (70-99(Fasting)) mg/dl Calcium 10.0 (8.6-10.3) mg/dl Magnesium 2.1 (1.7-2.4) mg/dl Total Bilirubin 0.5 (0.2-1.0) mg/dl AST 10 L (13-39) U/L ALT 6 L (7-52) U/L Alkaline Phosphatase 79 (34-104) U/L Total Protein 7.5 (6.0-8.3) gm/dl Albumin 3.4 (3.4-5.0) gm/dl Globulin 4.1 H (2.5-4.0) gm/dl Albumin/Globulin Ratio 0.8 L (0.9-2) Imaging Data Radiologist's Impression: Brain MRI 07/01/25 17:38 EXAM: MR brain wo con CLINICAL HISTORY: R eye vision loss TECHNIQUE: MRI of the brain was performed without contrast with multiplanar sequences obtained. COMPARISON: 07/01/2025 17:14:51 STRICKLER ATTENDANT reviewed FINDINGS: Brain Parenchyma: No evidence of acute infarction or hemorrhage. Periventricular sheets of high T2 and FLAIR signal with no restricted diffusion are seen. Bilateral frontal and parietal small periventricular and subcortical foci of high T2 and FLAIR signal with no restricted diffusion are seen neither surrounded by edema nor exerting mass effect. Some of the foci show CSF like signal. Ventricles and Sulci: Prominent cerebral ventricles and mildly dilated cortical sulci and extra axial CSF spaces. No evidence of hydrocephalus or ventriculomegaly. Sylvian fissures, sulci, and cisterns are within normal limits. Posterior Fossa: Cerebellum and brainstem appear normal without evidence of mass lesions or signal abnormalities. Cranial Nerves: Normal course and appearance of cranial nerves identified. Vessels: No evidence of vascular malformations or aneurysms. Intracranial arteries and veins appear normal without evidence of stenosis or occlusion. Orbits and Skull Base: Orbits and skull base structures are normal without evidence of abnormalities. IMPRESSION: 1. No evidence of acute infarction or hemorrhage. 2. Brain atrophic changes and microvascular chronic microvascular ischemic changes with bilateral cerebral old ischemic foci and lacunar infarcts. 3. Clinical correlation advised. Electronically signed by Jason Morales 07-01-2025 8:[address] 07/01/25 17:38 Clinical history: Hypertension Technique: Axial computed tomography images were obtained of the brain without intravenous contrast. Findings: There is diffuse cerebral atrophy, within expected limits for the patient's age. Areas of decreased attenuation are seen within the periventricular white matter, likely representing chronic small vessel ischemic disease. There is an old infarct of the left caudate nucleus. There is no definite sign of acute infarction. No intracranial hemorrhage is evident. No definite mass lesion is seen on this noncontrast examination. There is no midline shift or other form of herniation. No hydrocephalus is seen. No fracture is identified. The orbits and the visualized paranasal sinuses appear unremarkable. The mastoid air cells appear clear. Impression: 1. Cerebral atrophy and chronic small vessel ischemic disease 2. 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 No definite acute pathology Electronically signed by Marquez Caputo 07-01-2025 7:26 PM Discharge Plan Visit Data Chief Complaint: TIA Symptoms Stated Complaint: VISION, POSSIBLE STROKE ED Provider: Maricel Tong Discharge Problem: Stroke-like symptom, Blurred vision Condition: Fair Forms Stand Alone Forms: Merchantry Prescriptions Prescriptions: No Action furosemide 40 mg Tablet 40 mg PO QAM 30 Days Qty: 30 0RF carvedilol 3.125 mg Tablet 3.125 mg PO BIDM 30 Days Qty: 60 0RF amlodipine 5 mg Tablet 5 mg PO QAM 30 Days Qty: 30 0RF potassium chloride [Klor-Con] 20 mEq packet 40 meq PO DAILY Qty: 30 0RF Referrals Referrals: Tina Romo DO [Primary Care Provider] -
--- NOTE | 2025-07-01 20:52 | Magnetic Resonance Report ---
EXAM: MR brain wo con CLINICAL HISTORY: R eye vision loss TECHNIQUE: MRI of the brain was performed without contrast with multiplanar sequences obtained. COMPARISON: 07/01/2025 17:14:51 BARREL INSPECTOR TIGHT reviewed FINDINGS: Brain Parenchyma: No evidence of acute infarction or hemorrhage. Periventricular sheets of high T2 and FLAIR signal with no restricted diffusion are seen. Bilateral frontal and parietal small periventricular and subcortical foci of high T2 and FLAIR signal with no restricted diffusion are seen neither surrounded by edema nor exerting mass effect. Some of the foci show CSF like signal. Ventricles and Sulci: Prominent cerebral ventricles and mildly dilated cortical sulci and extra axial CSF spaces. No evidence of hydrocephalus or ventriculomegaly. Sylvian fissures, sulci, and cisterns are within normal limits. Posterior Fossa: Cerebellum and brainstem appear normal without evidence of mass lesions or signal abnormalities. Cranial Nerves: Normal course and appearance of cranial nerves identified. Vessels: No evidence of vascular malformations or aneurysms. Intracranial arteries and veins appear normal without evidence of stenosis or occlusion. Orbits and Skull Base: Orbits and skull base structures are normal without evidence of abnormalities. IMPRESSION: 1. No evidence of acute infarction or hemorrhage. 2. Brain atrophic changes and microvascular chronic microvascular ischemic changes with bilateral cerebral old ischemic foci and lacunar infarcts. 3. Clinical correlation advised. Electronically signed by Jason Morales 07-01-2025 8:52 PM
--- NOTE | 2025-07-01 21:28 | History & Physical Report ---
Date of Service July 01, 2025 Assessment & Plan (1) Uncontrolled hypertension: (2) Bilateral leg edema: (3) Chronic renal disease, stage 4, severely decreased glomerular filtration rate (GFR) between 15-29 mL/min/1.73 square meter: (4) Vision changes: (5) Depression: (6) Dizziness: (7) HTN (hypertension): Plan This is an 80 year old male with a PMH of dementia, Parkinson's, CKD stage 4, hx of TIA, depression, HTN, failure to thrive - coming in with R eye visual change. Stroke Like Symptoms - patient coming in with possible TIA vs CVA; R eye visual change; was seen by ophthalmology with no retinal issues - head CT and Brain MRI done and negative for acute CVA - check carotid doppler - start aspirin - check fasting lipid panel, check A1c - consider addition of statin CKD stage 4 - monitor creatinine; avoid nephrotoxic agents if able HTN - cont amlodipine and Coreg Chronic HFpEF - cont Lasix - cont potassium supplement History of Present Illness Chief Complaint: R Eye vision change Primary Care Provider: Tina Romo, This is an 80 year old male with a PMH of dementia, Parkinson's, CKD stage 4, hx of TIA, depression, HTN, failure to thrive - coming in with R eye visual change. He was seen by an wood preserving plant laborer and stated that the retina is fine and the issue is not related to the eye; was told to the come to the ER to r/o stroke. Head CT was done and negative. Brain MRI was then done and negative. Patietn with creatinine elevation due to CKD; no IV contrast given for CTA. Allergies Allergy/AdvReac Type Severity Reaction Status Date / Time Sulfa (Sulfonamide Allergy Intermediate HIVES Verified 06/22/25 14:02 Antibiotics) Home Medications Medication Instructions Recorded Confirmed Type amlodipine 5 mg tablet 5 mg PO QAM 1 month #30 tabs 06/18/25 07/01/25 Rx carvedilol 3.125 mg tablet 3.125 mg PO BIDM 1 month #60 tabs 06/18/25 07/01/25 Rx furosemide 40 mg tablet 40 mg PO QAM 1 month #30 tabs 06/18/25 07/01/25 Rx potassium chloride 20 mEq oral 40 meq PO DAILY #30 ea 06/18/25 07/01/25 Rx packet (Klor-Con) Past Med/Surg History Problem List (Updated 07/01/25 @ 21:42 by Felix Diaz DO) Vision changes Uncontrolled hypertension Acute diastolic CHF (congestive heart failure) Hypervolemia associated with renal insufficiency Elevated brain natriuretic peptide (BNP) level (Acute) Bilateral leg edema (Acute) Elevated troponin (Acute) Acute CHF (Acute) Renal mass Chronic renal disease, stage 4, severely decreased glomerular filtration rate (GFR) between 15-29 mL/min/1.73 square meter Melena Parkinsonism CKD (chronic kidney disease), stage III Weight loss Pneumonia due to COVID-19 virus Anemia COVID-19 Vitamin D deficiency B12 deficiency Asymptomatic hypertensive urgency Altered mental status (Acute) Generalized weakness (Acute) Fall (Acute) Elevated troponin (Acute) Abnormal ECG (Acute) Hypomagnesemia (Acute) Adult failure to thrive (Acute) Hypokalemia Tobacco use disorder Stroke-like symptoms Peripheral neuropathy Depression Urge incontinence History of colon cancer History of prostate cancer (Chronic) Crohn's disease HTN (hypertension) Transient cerebral ischemia (Acute) Dizziness (Acute) Medical History Dementia Aphasia Tremor Surgical History S/P partial colectomy S/P TURP Family History Daughter Cancer Ovarian cancer Other Hypertension Denies family history of Prostate cancer Myocardial infarction Breast cancer Colorectal cancer Social History Smoking Status: Never smoker Tobacco Type: Cigarettes Age Started Using Tobacco: 76; packs per day: 0.50; Cigarettes Per Day: 1/2 pack; Second Hand Exposure: Yes; Do You Dip or Chew Tobacco: No; Hx Alcohol Use: No Hx Substance Use: No Preferred Language: Croatian Communication Ability: Effective Visual Impairment: No Limitations Hearing Ability: Normal Insurance Claims Analyst Required: No Beliefs That Will Affect Care: None marital status: Current Living Situation: Spouse current occupational status: retired Feels Safe at Home: Yes Childhood Exposure to Second-Hand Smoke: Yes Diet: regular caffeine: Yes (1 coffee 1 pepsi daily) Dental Care, Regularly: No Physical Activity Frequency: Does not Exercise Seatbelt Use: always Sunscreen Use: No Do you think of yourself as: straight/heterosexual Gender Identity: Male Assistive Devices: Cane and Walker Review of Systems Review of Systems: Constitutional: No Weight Change, No Fever, No Chills, No Night Sweats, No Fatigue, No Malaise ENT/Mouth: No Hearing Changes, No Ear Pain, No Nasal Congestion, No Sinus Pain, No Hoarseness, No sore throat, No Rhinorrhea, No Swallowing Difficulty Eyes: No Eye Pain, No Swelling, No Redness, No Foreign Body, No Discharge, +R eye blurriness Cardiovascular: No Chest Pain, No SOB, No PND, No Dyspnea on Exertion, No Orthopnea, No Claudication, No Edema, No Palpitations Respiratory: No Cough, No Sputum, No Wheezing, No Smoke Exposure, No Dyspnea Gastrointestinal: No Nausea, No Vomiting, No Diarrhea, No Constipation, No Pain, No Heartburn, No Anorexia, No Dysphagia, No Hematochezia, No Melena, No Flatulence, No Jaundice Genitourinary: No Dysmenorrhea, No DUB, No Dyspareunia, No Dysuria, No Urinary Frequency, No Hematuria, No Urinary Incontinence, No Urgency, No Flank Pain, No Urinary Flow Changes, No Hesitancy Musculoskeletal: No Arthralgias, No Myalgias, No Joint Swelling, No Joint Stiffness, No Back Pain, No Neck Pain, No Injury History Skin: No Skin Lesions, No Pruritis, No Hair Changes, No Breast/Skin Changes, No Nipple Discharge Neuro: No Weakness, No Numbness, No Paresthesias, No Loss of Consciousness, No Syncope, No Dizziness, No Headache, No Coordination Changes, No Recent Falls Psych: No Anxiety/Panic, No Depression, No Insomnia, No Personality Changes, No Delusions, No Rumination, No SI/HI/AH/VH, No Social Issues, No Memory Changes, No Violence/Abuse Hx., No Eating Concerns Heme/Lymph: No Bruising, No Bleeding, No Transfusions History, No Lymphadenopathy Endocrine: No Polyuria, No Polydipsia, No Temperature Intolerance Physical Exam Physical Exam: VITALS: Reviewed. WEIGHT/BMI reviewed. GEN: Healthy appearing, well-developed, NAD. PSYCH: Good Judgment. AOx3. Normal memory, mood, and affect. HEENT -Head: NC/AT; -Eyes: PERRL, EOMI. No discharge or redn ess; -Ears: External ears are normal. Normal TMs. -Nose: Normal nares. -Mouth and throat: MMM. Normal gums, muc dudley, palate,. Good dentition. NECK: Supple, with no masses. CV: RRR, no m/r/g. LUNGS: CTAB, no w/r/c. ABD: Soft, NT/ND, NBS, no masses or organomegaly. : N/A SKIN: Warm, well perfused. No skin rashes or abnormal lesions. MSK: No deformities, Normal gait. EXT: No clubbing, cyanosis, or edema. NEURO: Ambulating with no limitations. Normal muscle strength and tone. No focal deficits. Results & Data Results & Data Vital Signs (Past 12 Hours) Vital Signs Temp Pulse Pulse Resp BP BP Pulse Ox 07/01/25 21:00 94 H 18 148/97 H 95 07/01/25 19:28 84 18 156/91 H 95 07/01/25 19:14 86 19 194/87 H 97 07/01/25 19:12 86 07/01/25 17:53 185/107 H 07/01/25 17:53 78 22 97 07/01/25 17:53 97 07/01/25 16:05 36.6 C 87 20 171/97 H 96 O2 Del Method 07/01/25 21:00 Room Air 07/01/25 19:28 Room Air 07/01/25 19:14 Room Air 07/01/25 19:12 07/01/25 17:53 07/01/25 17:53 Room Air 07/01/25 17:53 Room Air 07/01/25 16:05 Room Air Code Status & VTE Plan VTE Prophylaxis Plan VTE Prophylaxis will be ordered: Yes PG Care Time/CCT Total # of Minutes Spent Total Time Spent with Patient: Total time spent is greater than 50% in coordination of care (as documented) at patient's floor/unit and/or counseling patient: Coding Level of Care Code 57480 INT INP/OBS CARE 3/75MIN Diagnoses Uncontrolled hypertension I10 Bilateral leg edema R60.0 Chronic renal disease, stage 4, severely decreased glomerular filtration rate (GFR) between 15-29 mL/min/1.73 square meter N18.4 Vision changes H53.9 Depression F32.9 Dizziness R42 HTN (hypertension) I10
[2025-07-01] MEDS ORDERED: ACETAMINOPHEN 325 MG TAB PO PRN (22:23)
[2025-07-01] MEDS ORDERED: MELATONIN 3 MG TAB PO PRN (22:23)
[2025-07-01] MEDS ORDERED: ALUMINUM/MAGNESIUM SUSP 30 ML UDC PO PRN (22:23)
[2025-07-01] MEDS ORDERED: MAGNESIUM HYDROXIDE SUSP 30 ML UDC PO PRN (22:23)
[2025-07-01] MEDS ORDERED: POLYETHYLENE (MIRALAX) 17 GM PACK PO PRN (22:23)
[2025-07-01 23:52] LABS: Cholesterol 130.0 mg/dl (0-200); HDL Cholesterol 66.0 mg/dl; Triglycerides 71.0 mg/dl (0-150)
--- NOTE | 2025-07-02 03:53 | Ultrasound Report ---
EXAM: US carotid doppler BI CLINICAL HISTORY: TIA; r/o carotid stenosis TECHNIQUE: Static ultrasound images with Grayscale and Doppler were submitted for review. COMPARISON: none. FINDINGS: Peak systolic velocities of various arteries are as below (cm/sec). Common Carotid artery External Carotid Artery Internal Carotid Artery Vertebral Artery ICA/CAA ratio S/D Right(PSV/EDV) cms-1 59/10 67.2/7.6 48/17 33/6.3 0.8/1.7 Left(PSV/EDV)cms-1 55/15 34.3/4.6 57/17 32.8/10.2 0.9/1.1 Multiple level small eccentric calcified plaques seen in bilateral common/internal/external carotid arteries. No significant luminal stenosis. IMPRESSION: 1. Multiple level small eccentric calcified plaques seen in bilateral common/internal/external carotid arteries. 2. No hemodynamically significant / critical stenosis / occlusion in bilateral carotid/vertebral arteries as per flow criteria. 3. Antegrade flow seen in bilateral vertebral arteries. Electronically signed by Ry Clarke 07-02-2025 03:52 AM
[2025-07-02 05:21] LABS: Hematocrit (blood only) 28.5 % (42.0-52.0); Hemoglobin 9.5 g/dl (14.0-18.0); Immature Granulocytes # (auto) 0.03 K/uL (0.01-0.20); Immature Granulocytes % (auto) 0.3 %; Mean Corpuscular Hemoglobin 30.5 pg (25.0-34.0); Mean Corpuscular Volume 91.6 fL (80.0-100.0); Platelet Count 310 K/uL (130-400); RDW Standard Deviation 48.5 fL (36.4-46.3); Red Blood Count 3.11 M/uL (4.70-6.10); White Blood Count 8.65 K/ul (4.8-10.8)
[2025-07-02 05:37] LABS: Anion Gap 6.0 (3-11); Blood Urea Nitrogen 34.0 mg/dl (6-23); Calcium 9.3 mg/dl (8.6-10.3); Carbon Dioxide 30.0 mmol/L (21-32); Chloride 106.0 mmol/L (98-107); Creatinine Clr Calc Pharmacy 25.6 ml/min; Glucose 82.0 mg/dl (70-99(Fasting)); Magnesium 1.9 mg/dl (1.7-2.4); Potassium 3.6 mmol/L (3.5-5.1); Sodium 142.0 mmol/L (136-145)
[2025-07-02] MEDS: ASPIRIN 81 MG ECTAB PO SCH (07:40)
[2025-07-02] MEDS: FUROSEMIDE 40 MG TAB PO SCH (07:40)
[2025-07-02] MEDS: POTASSIUM CHLORIDE PWD 20 MEQ PACK PO SCH (07:41)
[2025-07-02] MEDS: HEPARIN SOD 5,000 UNIT/0.5 ML VIAL SQ SCH (07:42)
[2025-07-02 07:43] LABS: Hemoglobin A1C 5.2 % (4.5-5.6)
[2025-07-02 07:58] VITALS: BP 168/92; RESP 19; TEMP 98.1; O2SAT 95
[2025-07-02 09:28] VITALS: PULSE 94
--- NOTE | 2025-07-02 12:24 | Discharge Summary ---
Discharge Summary Date of Service July 02, 2025 Principal Dx & Hospital Course #1 = Principal Diagnosis (1) Amaurosis fugax of right eye: Plan In summary this is an 80-year-old male whose active medical conditions include hypertension, hyperlipidemia, heart failure with preserved ejection fraction, CKD stage IV consequential hypertensive nephrosclerosis among other chronic medical conditions who was referred to [facility] by their stuffer due to right visual field deficits. With regard to the patient's visual changes, there is no central neurologic findings that would explain their superior hemianopia; based on report per the patient from their stuffer there was no significant retinal changes that would explain this either. 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 MRI obtained during hospitalization did not reveal any significant vascular injury, carotid Dopplers further did not reveal any significant stenosis nor flow deficits. The patient's laboratory assessment including hemoglobin A1c, CMP, fasting lipid panel was relatively unremarkable except for noted slightly progressed A1c from 5.0 to 5.2%, not requiring any further medical intervention at this time. at this time the patient is not prescribed a statin or other cholesterol controlling medication, they were prescribed atorvastatin 40 mg p.o. daily at discharge to further reduce future risk of cardiovascular morbidity/mortality. Notes For Next Care Provider Medication Changes From Visit Start atorvastatin 40 mg p.o. daily Admission HPI Per Admitting Provider This is an 80 year old male with a PMH of dementia, Parkinson's, CKD stage 4, hx of TIA, depression, HTN, failure to thrive - coming in with R eye visual change. He was seen by an stuffer and stated that the retina is fine and the issue is not related to the eye; was told to the come to the ER to r/o stroke. Head CT was done and negative. Brain MRI was then done and negative. Patietn with creatinine elevation due to CKD; no IV contrast given for CTA. Discharge Exam General: Elderly male in no acute distress Vital Signs: hypertensive, though morning antihypertensives were withheld HEENT: Normocephalic, atraumatic; pupils equally reactive to light, extraocular motions intact; moist mucous membranes Neck: No palpable lymphadenopathy Pulmonary: symmetric chest wall excursion; CTAB Cardiovascular: Regular rate and rhythm with no murmurs, rubs, or gallops; S1 and S2 normal; bilateral radial and posterior tibial pulses 2+; no notable lower extremity edema Neurologic: CN II-XII intact; visual cobian intact with finger counting Discharge Plan Discharge Items Patient Disposition: Home - Self-Care Reason For Visit: VISUAL CHANGE Discharge Diagnosis: Amurosis Fugax, Right Eye Condition on Discharge: Good Activity: Resume your previous activity Non-emergency contact: Primary Care Provider and Biochemistry Professor Call non-emergency contact if: you have any medication questions and your symptoms worsen Follow-up/Referrals: Tina Romo, DO [Primary Care Provider] - 07/08/25 10:00 am Diet: Low Fat and Low Sodium (2gm) Fluids: 1800ml (7 cups) Addtl Attending Provider Instructions: Please maintain close follow up with your primary care provider and stuffer. Pending Studies at Discharge: No Stand-Alone Forms: My [facility] Medications and DC Order Prescriptions: New atorvastatin 40 mg tablet 40 mg PO DAILY 30 Days Qty: 30 0RF Continued furosemide 40 mg Tablet 40 mg PO QAM 30 Days Qty: 30 0RF carvedilol 3.125 mg Tablet 3.125 mg PO BIDM 30 Days Qty: 60 0RF amlodipine 5 mg Tablet 5 mg PO QAM 30 Days Qty: 30 0RF potassium chloride [Klor-Con] 20 mEq packet 40 meq PO DAILY Qty: 30 0RF Discharge Orders: Discharge Order (Routine); Ordered 07/02/25 Ordered By: Alvarez Pena Admission Data Admit Date/Time: 07/01/25 21:18 Attending Provider: Alvarez Pena Admit Provider: Felix Diaz Primary Care Provider: Tina Romo Other Providers: Felix Diaz Other Interventions: Discharge Summary Assessment (RN) Last Done: 07/02/25 09:25 Hospital Stay Data Consultations 07/01/25 20:53 ED Decision to Admit Stat Diagnostic Imagining Performed 07/01/25 17:38 CT head/brain wo con Stat MRI Brain [MR brain wo con] Stat 07/02/25 US carotid doppler BI Stat Pending Results Patient Have Any Pending Studies at Discharge: No Discharge Instructions Given to Patient (Per Discharging Provider) Please maintain close follow up with your primary care provider and stuffer. Total Time Total Time Spent Total Time Spent (In Minutes): 55 Coding Level of Care Code 33494 INP/OBS DISCH >30 MIN History Detailed Exam Detailed Diagnoses Amaurosis fugax of right eye G45.3
--- NOTE | 2025-07-02 23:30 | Electrocardiogram Report ---
Test Reason : Blood Pressure : */* mmHG Vent. Rate : 92 BPM Atrial Rate : 92 BPM P-R Int : 174 ms QRS Dur : 94 ms QT Int : 370 ms P-R-T Axes : 33 23 194 degrees QTcB Int : 457 ms Sinus rhythm with Premature atrial complexes Left ventricular hypertrophy with repolarization abnormality Abnormal ECG When compared with ECG of 14-Jun-2025 15:23, Premature atrial complexes are now Present Confirmed by Pete Cooper ([id number]) on 07/02/2025 11:29:58 PM Referred By: Lavonne Moran Confirmed By: Pete Cooper
== END 2025-07-02 10:39 | disposition home or self-care (01) | DRG 123 ==
LOC: ED 15:59 → SUATTDRO 21:18 → 2S 21:18

== ENCOUNTER 2025-09-11 13:36 | Inpatient (IN) ==
--- NOTE | 2025-09-11 13:37 | Emergency Department Note ---
Impression & Plan Closed displaced fracture of left femoral neck, Fall, Unable to care for self ED Provider Note NAME: MAGALY SMITH AGE: 80 SEX: M : 1945 ARRIVES VIA: Ambulance INFORMANT:, ED PROVIDER(S): Lan Lopez MD CHIEF COMPLAINT: Fall, hip pain MEDICAL DECISION MAKING: Patient presents with the above. Patient does have left-sided hip pain. No obvious overt signs of trauma to the head neck chest or back. IV was established and blood work was obtained along with a BNP given the patient's lower extremity edema the patient may have chronic venous stasis changes. Screening chest x-ray also performed. Patient was ordered IV Tylenol. Patient's blood work shows a white count of 8 with a hemoglobin of 10 normal platelet count kidney function with a creatinine 1.7. BNP is elevated 1700 although this has been elevated in the past. Patient reportedly does take Lasix daily based on review of the records. Urinalysis negative for infection. Patient's x-ray did show concern for left femoral neck fracture. Patient's chest x-ray does not show any obvious pneumonia. I did speak to the on-call hospital service and did message with the on-call orthopedic service Roc Cohen PA-C with Dr. Echevarria. Patient was made n.p.o. at midnight. Discussion w/ other healthcare providers: Dr. Kat inpatient medicine service Roc Cohen PA-C and Dr. Echevarria orthopedics Prior /Outside records reviewed: I reviewed part of a primary care visit from Lori Edmonds from August 05, 2025. Patient with a known history of bilateral leg edema parkinsonism and CKD stage III. Reportedly had been on amlodipine before and this was removed with some improvement in his leg swelling. Patient does have history of diastolic heart failure uncontrolled hypertension and renal mass and CKD. Differential diagnosis: Fracture, sprain, strain, subluxation, dislocation, contusion, ligamentous injury, neurovascular, as well as other etiologies were considered. Diagnostics, as interpreted by me: ECG: None Cardiac monitoring: An order was placed for continuous cardiac monitoring. The monitor shows a rate of 85 with sinus rhythm. Patient was placed on pulse oximetry Medical decision rules: None Imaging studies: I informally interpreted the patient's hip x-ray does show concern for left femoral neck fracture with formal report to follow. HPI: Patient presents due to concern for fall and hip pain. Patient reportedly fell from a ground-level onto his left hip. Patient denies any head neck or chest pain. The patient does smoke. Patient denies any head strike or LOC. He does not take any blood thinning medications but does take baby aspirin. Patient reportedly does have a history of Parkinson's. He does use a walker to ambulate. Patient states that he does follow with Davion Bhakta. Patient's pain to the left hip is constant but worse with range of motion. He was unable to get up to a standing position after the fall. No nausea or vomiting. EMS reported the patient was 90% on room air did place him on supplemental nasal cannula oxygen. He does not wear oxygen at home. PAST MEDICAL HISTORY: See Below PAST SURGICAL HISTORY: See Below SOCIAL HISTORY: See Below HOME MEDICATIONS: See Below ALLERGIES: See Below VITALS: See Below PHYSICAL EXAMINATION: Primary Survey Airway: Intact Breathing: Normal, breath sounds equal bilaterally Circulation: Skin warm, well perfused, capillary refill less than 2 seconds Disability Pupils: Equal and reactive to light, 3mm, brisk GCS: 15, E = 4 V=5 M= 6 Motor Function: Moves all extremities. Sensory: No deficits Secondary Survey GENERAL: NAD, non-toxic. HEAD: Normocephalic, atraumatic. EYE EXAM: Normal conjunctiva. PERRL, no anisocoria and EOM's grossly intact w/o pain. OROPHARYNX: Moist mucus membranes. Grossly normal dentition. NECK: Supple, trachea midline, no midline C spine TTP. Chest: No reproducible chest wall pain. LUNGS: Clear to auscultation. Normal chest wall mechanics. HEART: NSR, no MRG. ABDOMEN: Abdomen soft, non-tender, no obvious bruising, normo-active bowel sounds, no masses, no rebound or guarding. BACK: No CVA TTP. No midline thoracic or lumbar TTP. SKIN: No rashes and no bruising. UPPER EXTREMITIES: Upper extremities are grossly normal. Well-perfused and compartments are soft throughout. LOWER EXTREMITIES: Pain to palpation over the left hip. Bilateral lower extremity edema without calf pain, pitting edema noted. Left leg slightly shorter than the right. Patient's left leg unable to raise above the bed. Limited mobility of the right lower extremity but without pain to the right hip. NEURO EXAM: A&O x3, cranial nerves II-XII grossly intact, normal speech, moves all 4 extremities but limited in his left lower extremity secondary to pain. Past Med/Surg History Problem List (Updated 09/12/25 @ 06:12 by Lan Lopez MD) Unable to care for self (Acute) Fall (Acute) Closed displaced fracture of left femoral neck (Acute) (HFpEF) heart failure with preserved ejection fraction Hip fracture due to osteoporosis Amaurosis fugax of right eye Blurred vision (Acute) Stroke-like symptom (Acute) Vision changes Uncontrolled hypertension Acute diastolic CHF (congestive heart failure) Hypervolemia associated with renal insufficiency Elevated brain natriuretic peptide (BNP) level (Acute) Bilateral leg edema (Acute) Elevated troponin (Acute) Acute CHF (Acute) Renal mass Chronic renal disease, stage 4, severely decreased glomerular filtration rate (GFR) between 15-29 mL/min/1.73 square meter Melena Parkinsonism CKD (chronic kidney disease), stage III Weight loss Pneumonia due to COVID-19 virus Anemia COVID-19 Vitamin D deficiency B12 deficiency Asymptomatic hypertensive urgency Altered mental status (Acute) Generalized weakness (Acute) Fall (Acute) Elevated troponin (Acute) Abnormal ECG (Acute) Hypomagnesemia (Acute) Adult failure to thrive (Acute) Hypokalemia Tobacco use disorder Stroke-like symptoms Peripheral neuropathy Depression Urge incontinence History of colon cancer History of prostate cancer (Chronic) Crohn's disease HTN (hypertension) Transient cerebral ischemia (Acute) Dizziness (Acute) Medical History Dementia Aphasia Tremor Surgical History S/P partial colectomy S/P TURP Family History Daughter Cancer Ovarian cancer Other Hypertension Denies family history of Prostate cancer Myocardial infarction Breast cancer Colorectal cancer Social History Smoking Status: Current every day smoker Tobacco Type: Cigarettes Age Started Using Tobacco: 76; packs per day: 0.50; Cigarettes Per Day: half pack per day; Second Hand Exposure: No; Do You Dip or Chew Tobacco: No; Tobacco Cessation Education Requested by Patient: No Hx Alcohol Use: No Hx Substance Use: No Preferred Language: Setswana Communication Ability: Effective Visual Impairment: No Limitations Hearing Ability: Normal Game Producer Required: No Beliefs That Will Affect Care: None marital status: Current Living Situation: Spouse Current Living Situation Comment: lives w/ in house current occupational status: retired Other Information That Helps Us Care for You: No Feels Safe at Home: Yes Safety Concerns: Feels Safe At This Time Childhood Exposure to Second-Hand Smoke: Yes Diet: regular caffeine: Yes (1 coffee 1 pepsi daily) Dental Care, Regularly: No Physical Activity Frequency: Does not Exercise Seatbelt Use: always Sunscreen Use: No Do you think of yourself as: straight/heterosexual Gender Identity: Male Assistive Devices: Cane and Walker Allergies Allergies Allergy/AdvReac Type Severity Reaction Status Date / Time Sulfa (Sulfonamide Allergy Intermediate HIVES Verified 08/10/25 08:40 Antibiotics) Home Meds Home Medications Medication Instructions Recorded Confirmed aspirin 81 mg tablet,delayed 81 mg PO QAM 07/13/25 09/11/25 release (Adult Low Dose Aspirin) Previous Rx's Medication Instructions Recorded potassium chloride 20 mEq oral 40 meq PO DAILY #30 ea 06/18/25 packet (Klor-Con) carvedilol 6.25 mg tablet 6.25 mg PO BID #60 tabs 07/07/25 furosemide 40 mg tablet 40 mg PO QAM 1 month #90 tabs 07/15/25 triamcinolone acetonide 0.1 % 1 applic topical BID #80 grams 08/05/25 topical cream carbidopa 25 mg-levodopa 100 mg 1 tab PO TID #90 tabs 09/01/25 tablet Results & Data (ED) Vital Signs Vital Signs - 24 hr 09/11/25 13:56 09/11/25 13:58 09/11/25 14:00 Temperature 36.7 C Temperature Source Oral Pulse Rate 95 H 98 H 93 H Pulse Rate from SpO2 Sensor 94 H Pulse Rhythm Regular Pulse Strength Normal Respiratory Rate 23 22 Respiratory Effort / Characteristics Non-Labored Spontaneous Respiratory Depth Normal Respiratory Pattern Regular Blood Pressure 204/136 H 204/136 H Blood Pressure Mean 158 158 Blood Pressure Position Sitting Pulse Oximetry 96 96 Oxygen Delivery Method Room Air Sepsis Recent Fever Within 48 Hours No Sepsis New/Unexplained Change in Mental Status N/A Sepsis Action Taken by Nursing No Action Required 09/11/25 15:12 09/11/25 15:12 Temperature Temperature Source Pulse Rate 106 H Pulse Rate from SpO2 Sensor Pulse Rhythm Pulse Strength Respiratory Rate 22 Respiratory Effort / Characteristics Respiratory Depth Respiratory Pattern Blood Pressure 176/113 H Blood Pressure Mean 134 Blood Pressure Position Pulse Oximetry 95 Oxygen Delivery Method Room Air Sepsis Recent Fever Within 48 Hours Sepsis New/Unexplained Change in Mental Status Sepsis Action Taken by Detention Medications Current Medication List: was personally reviewed by me Laboratory Data Attestation: I reviewed the patient's lab results. 09/11/25 14:00 09/11/25 14:00 Lab Results 09/11/25 09/11/25 09/11/25 Range/Units 14:00 15:20 15:53 WBC 8.80 (4.8-10.8) K/ul RBC 3.67 L (4.70-6.10) M/uL Hgb 10.2 L (14.0-18.0) g/dl Hct 32.3 L (42.0-52.0) % MCV 88.0 (80.0-100.0) fL MCH 27.8 (25.0-34.0) pg MCHC 31.6 L (32.0-36.0) g/dL RDW Std Deviation 48.9 H (36.4-46.3) fL RDW Coeff of Ruiz 15.2 H (11.5-14.5) % Plt Count 326 (130-400) K/uL MPV 10.1 (9.4-12.4) fL Immature Gran % (Auto) 0.3 % Neut % (Auto) 78.8 % Lymph % (Auto) 11.7 % Frio % (Auto) 6.0 % Eos % (Auto) 2.6 % Baso % (Auto) 0.6 % Neut # (Auto) 6.93 H (1.40-6.50) K/uL Lymph # (Auto) 1.03 L (1.20-3.40) K/uL Frio # (Auto) 0.53 (0.11-0.59) K/uL Eos # (Auto) 0.23 (0.00-0.50) K/uL Baso # (Auto) 0.05 (0.00-0.20) K/uL Immature Gran # (Auto) 0.03 (0.01-0.20) K/uL PT 10.9 (9.0-12.0) Seconds INR 1.0 (0.9-1.1) APTT 25 (21-31) Seconds PTT Ratio 0.9 Sodium 138 (136-145) mmol/L Potassium 3.7 (3.5-5.1) mmol/L Chloride 103 (98-107) mmol/L Carbon Dioxide 27 (21-32) mmol/L Anion Gap 8 (3-11) BUN 28 H (6-23) mg/dl Creatinine 1.73 H (0.6-1.4) mg/dl Est Cr Clr Drug Dosing 30.7 ml/min eGFR 38.93 BUN/Creatinine Ratio 16.2 (10-20) Glucose 111 H (70-99(Fasting)) mg/dl Calcium 10.2 (8.6-10.3) mg/dl Total Bilirubin 0.5 (0.2-1.0) mg/dl AST 11 L (13-39) U/L ALT 7 (7-52) U/L Alkaline Phosphatase 83 (34-104) U/L B-Natriuretic Peptide 1746 H (0-100) pg/ml Total Protein 7.4 (6.0-8.3) gm/dl Albumin 3.5 (3.4-5.0) gm/dl Globulin 3.9 (2.5-4.0) gm/dl Albumin/Globulin Ratio 0.9 (0.9-2) Urine Color Yellow Urine Appearance Clear (Clear) Urine pH 7.5 (4.5-7.5) Ur Specific [place] 1.007 (1.000-1.030) Urine Protein 1+ H (Negative) Urine Glucose (UA) Negative (Negative) Urine Ketones Negative (Negative) Urine Blood 1+ H (Negative) Urine Nitrite Negative (Negative) Urine Bilirubin Negative (Negative) Urine Urobilinogen Negative (Negative) Ur Leukocyte Esterase Negative (Negative) Urine WBC (Auto) 0-5 (0-5) /hpf Urine RBC (Auto) 11-20 H (0-2) /hpf U Hyaline Cast (Auto) 0-2 (0-2) /lpf U Epithel Cells (Auto) 0-2 (0-2) /hpf Urine Bacteria (Auto) None Seen (None Seen) Urine Comment SARS-CoV-2 (PCR) NEGATIVE (Negative) Influenza Type A (PCR) Negative (Neg) Influenza Type B (PCR) Negative (Neg) RSV (RT-PCR) Negative (Neg) Administered Medications Carbidopa/Levodopa (Carbidopa/Levodopa 25/100mg Tab) 1 tab PO TID PETER Stop: 10/11/25 20:59 Last Admin: 09/11/25 19:26 Dose: 1 tab Documented By: LORETO Carvedilol (Carvedilol 6.25 Mg Tab) 6.25 mg PO BID PETER Stop: 10/11/25 20:59 Last Admin: 09/11/25 19:26 Dose: 6.25 mg Documented By: LORETO Oxycodone HCl (Oxycodone Hcl Ir 5 Mg Tab (Immediate Release)) 5 mg PO Q4H PRN PRN Reason: MODERATE Pain (4,5,6) & Pre PT Stop: 09/25/25 18:38 Last Admin: 09/11/25 19:26 Dose: 5 mg Documented By: LORETO Discontinued Medications Furosemide (Furosemide 40 Mg/4 Ml Vial) 40 mg IV ONE ONE Stop: 09/11/25 15:19 Last Admin: 09/11/25 15:38 Dose: 40 mg Documented By: CIPRIANO Hydralazine HCl (Hydralazine Hcl 20 Mg/Ml Vial) 5 mg IV NOW ONE Stop: 09/11/25 18:52 Last Admin: 09/11/25 19:15 Dose: 5 mg Documented By: LORETO Hydralazine HCl (Hydralazine Hcl 20 Mg/Ml Vial) 5 mg IV NOW ONE Stop: 09/12/25 03:45 Last Admin: 09/12/25 03:54 Dose: 5 mg Documented By: LORETO Acetaminophen (Ofirmev) 1,000 mg in 100 mls @ 400 mls/hr IV NOW STA Stop: 09/11/25 14:05 Last Infusion: 09/11/25 15:23 Dose: Infused Documented By: Admin: 09/11/25 14:28 Dose: 400 mls/hr Documented By: YUSUF Labetalol HCl (Labetalol Hcl Iv 5 Mg/Ml 20ml) 5 mg IV NOW STA Stop: 09/11/25 22:46 Last Admin: 09/11/25 22:54 Dose: 5 mg Documented By: LORETO Metoprolol Tartrate (Metoprolol Tartrate 1 Mg/Ml Vial) 5 mg IV NOW STA Stop: 09/11/25 17:08 Last Admin: 09/11/25 17:39 Dose: 5 mg Documented By: CIPRIANO Imaging Data Radiologist's Impression: Hip X-Ray 09/11/25 13:45 Clinical History: Pain after fall 2 views of the left hip are submitted for review. Findings: There is a nondisplaced transcervical fracture of the left femoral neck No subluxation or dislocation is seen. No significant arthritic changes are noted. No other osseous abnormality is identified. There are no radiopaque foreign bodies. Vascular calcifications are present Impression: Left femoral neck fracture ACT 112: Positive. There are findings on this exam that require communication between the performing entity and the patient following Patient Test Result Information Act ([place] ACT 112) guidelines. Electronically signed by Marquez Caputo 09-11-2025 3:40 PM Chest X-Ray 09/11/25 13:53 Technique: A frontal view of the chest was obtained Comparison is made to the prior examination dated 06/14/2025 Findings: There are no definite pulmonary infiltrates. The heart size is within normal limits. No pleural effusion or pneumothorax is seen. There is suspected mild left lung base atelectasis No fracture is noted. No foreign body is seen Impression: Mild left lung base atelectasis Electronically signed by Marquez Caputo 09-11-2025 3:43 PM Discharge Plan Visit Data Chief Complaint: Fall Stated Complaint: FALL, HIP PAIN ED Provider: Lan Lopez Discharge Problem: Closed displaced fracture of left femoral neck, Fall, Unable to care for self Patient Disposition: Admitted As Inpatient Condition: Good Discharge Instructions Interventions: ED Discharge Assessment Last Done: 09/11/25 17:55 Discharge Problem: Fall Qualifiers: Encounter type: initial encounter Qualified Code(s): W19.XXXA - Unspecified fall, initial encounter
[2025-09-11 14:25] LABS: Hematocrit (blood only) 32.3 % (42.0-52.0); Hemoglobin 10.2 g/dl (14.0-18.0); Immature Granulocytes # (auto) 0.03 K/uL (0.01-0.20); Immature Granulocytes % (auto) 0.3 %; Mean Corpuscular Hemoglobin 27.8 pg (25.0-34.0); Mean Corpuscular Volume 88.0 fL (80.0-100.0); Platelet Count 326 K/uL (130-400); RDW Standard Deviation 48.9 fL (36.4-46.3); Red Blood Count 3.67 M/uL (4.70-6.10); White Blood Count 8.80 K/ul (4.8-10.8)
[2025-09-11] MEDS: ACETAMINOPHEN 1,000 MG/100 ML VIAL IV STA (14:28)
[2025-09-11 14:42] LABS: Anion Gap 8.0 (3-11); Blood Urea Nitrogen 28.0 mg/dl (6-23); Carbon Dioxide 27.0 mmol/L (21-32); Chloride 103.0 mmol/L (98-107); Potassium 3.7 mmol/L (3.5-5.1); Sodium 138.0 mmol/L (136-145)
[2025-09-11 14:43] LABS: Alanine Aminotransferase 7.0 U/L (7-52); Albumin Globulin Ratio 0.9 (0.9-2); Albumin Level 3.5 gm/dl (3.4-5.0); Alkaline Phosphatase 83.0 U/L (34-104); Bilirubin,Total 0.5 mg/dl (0.2-1.0); Calcium 10.2 mg/dl (8.6-10.3); Creatinine Clr Calc Pharmacy 30.7 ml/min; Globulin 3.9 gm/dl (2.5-4.0); Glucose 111.0 mg/dl (70-99(Fasting)); Total Protein 7.4 gm/dl (6.0-8.3)
[2025-09-11 14:54] LABS: INR 1.0 (0.9-1.1); Partial Thromboplastin Time 25 Seconds (21-31); Prothrombin Time 10.9 Seconds (9.0-12.0)
[2025-09-11] MEDS: FUROSEMIDE 40 MG/4 ML VIAL IV ONE (15:38)
--- NOTE | 2025-09-11 15:41 | XRay Report ---
Clinical History: Pain after fall 2 views of the left hip are submitted for review. Findings: There is a nondisplaced transcervical fracture of the left femoral neck No subluxation or dislocation is seen. No significant arthritic changes are noted. No other osseous abnormality is identified. There are no radiopaque foreign bodies. Vascular calcifications are present Impression: Left femoral neck fracture ACT 112: Positive. There are findings on this exam that require communication between the performing entity and the patient following Patient Test Result Information Act ([place] ACT 112) guidelines. Electronically signed by Marquez Caputo 09-11-2025 3:40 PM
--- NOTE | 2025-09-11 15:44 | XRay Report ---
Technique: A frontal view of the chest was obtained Comparison is made to the prior examination dated 06/14/2025 Findings: There are no definite pulmonary infiltrates. The heart size is within normal limits. No pleural effusion or pneumothorax is seen. There is suspected mild left lung base atelectasis No fracture is noted. No foreign body is seen Impression: Mild left lung base atelectasis Electronically signed by Marquez Caputo 09-11-2025 3:43 PM
--- NOTE | 2025-09-11 15:46 | History & Physical Report ---
Date of Service September 11, 2025 Assessment & Plan (1) Hip fracture due to osteoporosis: (2) (HFpEF) heart failure with preserved ejection fraction: (3) Chronic renal disease, stage 4, severely decreased glomerular filtration rate (GFR) between 15-29 mL/min/1.73 square meter: (4) Parkinsonism: Plan This patient is an 80-year-old male with a history of HTN, venous insufficiency, chronic HFpEF, possibly Lewy body dementia, parkinsonism, depression, CKD stage III, amaurosis fugax of right eye, renal mass, history of low-grade prostate cancer, vitamin B12 deficiency, and current smoker, who presents to the ED with left sided hip pain after a ground-level fall onto his left hip. He denies passing out and did not hit his head. He does not know exactly why he fell but he does have Parkinson's and uses a walker to ambulate. He was found to have a left hip fracture of the femoral neck on x-ray. He denies pain anywhere else in the body but does have an abrasion on the left hand. He denies chest pains or shortness of breath, no heart palpitations, no lightheadedness or headache. He has chronic anemia and chronic kidney disease as well as an elevated BNP on labs. He was borderline hypoxemic and was placed on supplemental O2. His CXR showed mild atelectasis at the left midlung and he was given IV Lasix, IV Tylenol, and IV morphine. He will be admitted for left hip fracture. #Left hip fracture/fall-mechanical fall in the setting of parkinsonism and ambulatory dysfunction. No other injuries except left hand abrasion. Plan to do tertiary trauma exam in 24 hours. -Admit to medical floor with telemetry - Orthopedic surgery consulted-keep n.p.o. after midnight for hip repair on 09/12 - Pain control with IV morphine, Tylenol as needed - Bed rest - Wound care consulted for left hand abrasion - Follow CBC, BMP in the morning - Check COVID nasal swab #Borderline hypoxemia/current smoker-with pulse ox 90% in the ED and also given IV opioids. With elevated BNP was given Lasix in the ED thought to be from vo lume overload - Order DuoNebs as needed - Counseled on smoking cessation-May need nicotine patch #Possible acute on chronic HFpEF/venous insufficiency/HTN/history of amaurosis fugax-given IV Lasix as above for mildly low oxygen levels and elevated BNP. Blood pressures are significantly elevated and heart rate becoming tachycardic. Patient did not take home carvedilol on the morning of admission - Continue home Lasix -Daily weights, strict I's and O's, Faustin catheter in place - Give Lopressor 5 mg IV x 1 and continue home carvedilol - Monitor on telemetry #CKD stage III/history of renal mass/history of prostate cancer-renal function at or below baseline at 1.7 - Follow BMP - Renally dose medications and avoid nephrotoxic meds - Continue Faustin catheter for now #Chronic anemia/B12 deficiency-hemoglobin at baseline at 10.2, normocytic - Check iron studies, B12, folate in the morning - Follow CBC - He is no longer taking B12 supplement at home but previously was quite low #Parkinsonism/possible Lewy body dementia/depression-follows with neurology - Continue carbidopa/levodopa 3 times daily - Not currently on medications for depression DVT prophylaxis-SCDs only for now, chemical prophylaxis postoperatively as per orthopedic surgery Disposition-admit to medical floor with telemetry History of Present Illness Chief Complaint: Fall, hip fracture Primary Care Provider: Tina Romo, DO This patient is an 80-year-old male with a history of HTN, venous insufficiency, chronic HFpEF, possibly Lewy body dementia, parkinsonism, depression, CKD stage IV, amaurosis fugax of right eye, renal mass, history of low-grade prostate cancer, vitamin B12 deficiency, and current smoker, who presents to the ED with left sided hip pain after a ground-level fall onto his left hip. He denies passing out and did not hit his head. He does not know exactly why he fell but he does have Parkinson's and uses a walker to ambulate. He was found to have a left hip fracture of the femoral neck on x-ray. He denies pain anywhere else in the body but does have an abrasion on the left hand. He denies chest pains or shortness of breath, no heart palpitations, no lightheadedness or headache. He has chronic anemia and chronic kidney disease as well as an elevated BNP on labs. He was borderline hypoxemic and was placed on supplemental O2. His CXR showed mild atelectasis at the left midlung and he was given IV Lasix, IV Tylenol, and IV morphine. He will be admitted for left hip fracture. Allergies Allergy/AdvReac Type Severity Reaction Status Date / Time Sulfa (Sulfonamide Allergy Intermediate HIVES Verified 08/10/25 08:40 Antibiotics) Home Medications Medication Instructions Recorded Confirmed Type potassium chloride 20 mEq oral 40 meq PO DAILY #30 ea 06/18/25 09/11/25 Rx packet (Klor-Con) carvedilol 6.25 mg tablet 6.25 mg PO BID #60 tabs 07/07/25 09/11/25 Rx aspirin 81 mg tablet,delayed 81 mg PO QAM 07/13/25 09/11/25 History release (Adult Low Dose Aspirin) furosemide 40 mg tablet 40 mg PO QAM 1 month #90 tabs 07/15/25 09/11/25 Rx triamcinolone acetonide 0.1 % 1 applic topical BID #80 grams 08/05/25 09/11/25 Rx topical cream carbidopa 25 mg-levodopa 100 mg 1 tab PO TID #90 tabs 09/01/25 09/11/25 Rx tablet Past Med/Surg History Problem List (HFpEF) heart failure with preserved ejection fraction Hip fracture due to osteoporosis Amaurosis fugax of right eye Blurred vision (Acute) Stroke-like symptom (Acute) Vision changes Uncontrolled hypertension Acute diastolic CHF (congestive heart failure) Hypervolemia associated with renal insufficiency Elevated brain natriuretic peptide (BNP) level (Acute) Bilateral leg edema (Acute) Elevated troponin (Acute) Acute CHF (Acute) Renal mass Chronic renal disease, stage 4, severely decreased glomerular filtration rate (GFR) between 15-29 mL/min/1.73 square meter Melena Parkinsonism CKD (chronic kidney disease), stage III Weight loss Pneumonia due to COVID-19 virus Anemia COVID-19 Vitamin D deficiency B12 deficiency Asymptomatic hypertensive urgency Altered mental status (Acute) Generalized weakness (Acute) Fall (Acute) Elevated troponin (Acute) Abnormal ECG (Acute) Hypomagnesemia (Acute) Adult failure to thrive (Acute) Hypokalemia Tobacco use disorder Stroke-like symptoms Peripheral neuropathy Depression Urge incontinence History of colon cancer History of prostate cancer (Chronic) Crohn's disease HTN (hypertension) Transient cerebral ischemia (Acute) Dizziness (Acute) Medical History Dementia Aphasia Tremor Surgical History S/P partial colectomy S/P TURP Family History Daughter Cancer Ovarian cancer Other Hypertension Denies family history of Prostate cancer Myocardial infarction Breast cancer Colorectal cancer Social History Smoking Status: Never smoker Tobacco Type: Cigarettes Age Started Using Tobacco: 76; packs per day: 0.50; Cigarettes Per Day: 10-12 cigarettes/day; Second Hand Exposure: Yes; Do You Dip or Chew Tobacco: No; Hx Alcohol Use: No Hx Substance Use: No Preferred Language: Arabic Communication Ability: Effective Visual Impairment: No Limitations Hearing Ability: Normal Rocket Scientist Required: No Beliefs That Will Affect Care: None marital status: Current Living Situation: Spouse current occupational status: retired Feels Safe at Home: Yes Childhood Exposure to Second-Hand Smoke: Yes Diet: regular caffeine: Yes (1 coffee 1 pepsi daily) Dental Care, Regularly: No Physical Activity Frequency: Does not Exercise Seatbelt Use: always Sunscreen Use: No Do you think of yourself as: straight/heterosexual Gender Identity: Male Assistive Devices: Cane Review of Systems Review of Systems: All systems reviewed & are unremarkable except as noted in HPI & below Physical Exam Constitutional: WD/WN, vitals as above Eyes: PERRL, conjunctivae normal, anicteric sclerae ENMT: external ear and nose normal, oropharynx normal Neck: trachea midline, no thyromegaly Respiratory: normal respiratory effort, lungs clear to auscultation Cardiovascular: Rate/Rhythm: regular rate and regular rhythm Heart Sounds: no murmur Extremities: + edema (2+ pitting edema of the lower extremities bilaterally) Chest (Breasts): Chest: normal inspection of chest Gastrointestinal (Abdomen): normal bowel sounds, soft, nontender, no hepatospl enomegaly Musculoskeletal: Extremities: extremities normal to inspection; no cyanosis and no clubbing Skin: no rashes, warm and dry (Left dorsal hand with abrasion with mild oozing of blood) Neurologic: moves all extremities and awake; no focal motor deficits Speech / Cognition: normal speech, no expressive aphasia and normal cognition Motor/Sensory: + tremor (Resting tremor in hands) Psychiatric: A+Ox3, euthymic affect Genitourinary: + penis abnormality (Faustin catheter in p lace draining clear yellow urine) Lymphatic: no lymphedema Results & Data Results & Data Vital Signs (Past 12 Hours) Vital Signs Temp Pulse Resp BP Pulse Ox O2 Del Method 09/11/25 15:12 106 H 22 176/113 H 09/11/25 14:00 93 H 22 204/136 H 96 09/11/25 13:58 36.7 C 98 H 23 204/136 H 96 Room Air 09/11/25 13:56 95 H Laboratory Results CBC, PT/PTT/INR, CMP, BNP, UA reviewed Diagnostic Findings CXR and left hip x-rays images personally reviewed by me ECG Additional Comments: ECG on 09/11/2025 at 1411 with sinus rhythm with PACs, rate 94, borderline first-degree AV block, LVH with repolarization abnormality, unchanged from previous Code Status & VTE Plan Code Status Full code VTE Prophylaxis Plan VTE Prophylaxis will be ordered: Yes PG Care Time/CCT Total # of Minutes Spent Total Time Spent with Patient: Total time spent is greater than 50% in coordination of care (as documented) at patient's floor/unit and/or counseling patient: Coding Level of Care Code 58625 INT INP/OBS CARE MIN Diagnoses Hip fracture due to osteoporosis M80.059A (HFpEF) heart failure with preserved ejection fraction I50.30 Chronic renal disease, stage 4, severely decreased glomerular filtration rate (GFR) between 15-29 mL/min/1.73 square meter N18.4 Parkinsonism G20
[2025-09-11 15:47] LABS: Appearance Urine Clear (Clear); Bacteria Urine Automated None Seen (None Seen); Cast Urine Automated 0-2 /lpf (0-2); Epithelial Cell Urine Auto 0-2 /hpf (0-2); Glucose Urine UA Negative (Negative); WBC Urine Automated 0-5 /hpf (0-5)
[2025-09-11 16:40] LABS: Influenza A virus by PCR Negative (Neg); Influenza B virus by PCR Negative (Neg); SARS CoV2 RNA(COVID-19) Ceph NEGATIVE (Negative)
[2025-09-11] MEDS: METOPROLOL TARTRATE 1 MG/ML VIAL IV STA (17:39)
[2025-09-11] MEDS ORDERED: ALBUT/IPRATROP 3MG/0.5MG NEB 3 ML VIAL NEB PRN (18:39)
[2025-09-11] MEDS ORDERED: ONDANSETRON INJ 2 MG/ML 2 ML VIAL IV PRN (18:39)
[2025-09-11] MEDS ORDERED: NALOXONE HCL 0.4 MG/1 ML VIAL/CARP IV PRN (18:39)
[2025-09-11] MEDS: CARBIDOPA/LEVODOPA 25/100MG TAB PO SCH (19:26)
[2025-09-11] MEDS: LABETALOL HCL IV 5 MG/ML 20ML IV STA (22:54)
--- NOTE | 2025-09-12 07:04 | Electrocardiogram Report ---
Test Reason : Blood Pressure : */* mmHG Vent. Rate : 94 BPM Atrial Rate : 94 BPM P-R Int : 200 ms QRS Dur : 94 ms QT Int : 360 ms P-R-T Axes : 57 40 196 degrees QTcB Int : 450 ms Sinus rhythm with Premature supraventricular complexes Left ventricular hypertrophy with repolarization abnormality ( Sokolow-Hamlin , Romhilt-Pérez ) Abnormal ECG When compared with ECG of 01-Jul-2025 16:16, No significant change was found Confirmed by Pete Cooper ([id number]) on 09/12/2025 7:03:59 AM Referred By: Confirmed By: Pete Cooper
[2025-09-12 07:20] LABS: Hematocrit (blood only) 35.4 % (42.0-52.0); Hemoglobin 11.7 g/dl (14.0-18.0); Immature Granulocytes # (auto) 0.03 K/uL (0.01-0.20); Immature Granulocytes % (auto) 0.3 %; Mean Corpuscular Hemoglobin 28.7 pg (25.0-34.0); Mean Corpuscular Volume 86.8 fL (80.0-100.0); Platelet Count 319 K/uL (130-400); RDW Standard Deviation 46.4 fL (36.4-46.3); Red Blood Count 4.08 M/uL (4.70-6.10); White Blood Count 10.11 K/ul (4.8-10.8)
--- NOTE | 2025-09-12 07:32 | Orthopedic Consultation ---
Date of Service September 12, 2025 Assessment & Plan (1) Hip fracture due to osteoporosis: 80-year-old male with closed left femoral neck fracture. Plan is to perform hemiarthroplasty of the left hip. Patient was consented and has been n.p.o. overnight. History of Present Illness Reason for Consultation: Left femoral neck fracture Requesting Physician: . Attending Physician: Sanjana Kat MD This patient is an 80-year-old male with a history of HTN, venous insufficiency, chronic HFpEF, possibly Lewy body dementia, parkinsonism, depression, CKD stage III, amaurosis fugax of right eye, renal mass, history of low-grade prostate cancer, vitamin B12 deficiency, and current smoker, who presents to the ED with left sided hip pain after a ground-level fall onto his left hip. He denies passing out and did not hit his head. He does not know exactly why he fell but he does have Parkinson's and uses a walker to ambulate. He was found to have a left hip fracture of the femoral neck on x-ray. He denies pain anywhere else in the body but does have an abrasion on the left hand. He denies chest pains or shortness of breath, no heart palpitations, no lightheadedness or headache. He has chronic anemia and chronic kidney disease as well as an elevated BNP on labs. He was borderline hypoxemic and was placed on supplemental O2. His CXR showed mild atelectasis at the left midlung and he was given IV Lasix, IV Tylenol, and IV morphine. Allergies Allergy/AdvReac Type Severity Reaction Status Date / Time Sulfa (Sulfonamide Allergy Intermediate HIVES Verified 08/10/25 08:40 Antibiotics) Home Medications Medication Instructions Recorded Confirmed Type potassium chloride 20 mEq oral 40 meq PO DAILY #30 ea 06/18/25 09/11/25 Rx packet (Klor-Con) carvedilol 6.25 mg tablet 6.25 mg PO BID #60 tabs 07/07/25 09/11/25 Rx aspirin 81 mg tablet,delayed 81 mg PO QAM 07/13/25 09/11/25 History release (Adult Low Dose Aspirin) furosemide 40 mg tablet 40 mg PO QAM 1 month #90 tabs 07/15/25 09/11/25 Rx triamcinolone acetonide 0.1 % 1 applic topical BID #80 grams 08/05/25 09/11/25 Rx topical cream carbidopa 25 mg-levodopa 100 mg 1 tab PO TID #90 tabs 09/01/25 09/11/25 Rx tablet Past Med/Surg History Problem List Unable to care for self (Acute) Fall (Acute) Closed displaced fracture of left femoral neck (Acute) (HFpEF) heart failure with preserved ejection fraction Hip fracture due to osteoporosis Amaurosis fugax of right eye Blurred vision (Acute) Stroke-like symptom (Acute) Vision changes Uncontrolled hypertension Acute diastolic CHF (congestive heart failure) Hypervolemia associated with renal insufficiency Elevated brain natriuretic peptide (BNP) level (Acute) Bilateral leg edema (Acute) Elevated troponin (Acute) Acute CHF (Acute) Renal mass Chronic renal disease, stage 4, severely decreased glomerular filtration rate (GFR) between 15-29 mL/min/1.73 square meter Melena Parkinsonism CKD (chronic kidney disease), stage III Weight loss Pneumonia due to COVID-19 virus Anemia COVID-19 Vitamin D deficiency B12 deficiency Asymptomatic hypertensive urgency Altered mental status (Acute) Generalized weakness (Acute) Fall (Acute) Elevated troponin (Acute) Abnormal ECG (Acute) Hypomagnesemia (Acute) Adult failure to thrive (Acute) Hypokalemia Tobacco use disorder Stroke-like symptoms Peripheral neuropathy Depression Urge incontinence History of colon cancer History of prostate cancer (Chronic) Crohn's disease HTN (hypertension) Transient cerebral ischemia (Acute) Dizziness (Acute) Medical History Dementia Aphasia Tremor Surgical History S/P partial colectomy S/P TURP Family History Daughter Cancer Ovarian cancer Other Hypertension Denies family history of Prostate cancer Myocardial infarction Breast cancer Colorectal cancer Social History Smoking Status: Current every day smoker Tobacco Type: Cigarettes Age Started Using Tobacco: 76; packs per day: 0.50; Cigarettes Per Day: half pack per day; Second Hand Exposure: No; Do You Dip or Chew Tobacco: No; Tobacco Cessation Education Requested by Patient: No Hx Alcohol Use: No Hx Substance Use: No Preferred Language: Kyrgyz Communication Ability: Effective Visual Impairment: No Limitations Hearing Ability: Normal Gerontological Nurse Practitioner Required: No Beliefs That Will Affect Care: None marital status: Current Living Situation: Spouse Current Living Situation Comment: lives w/ in house current occupational status: retired Other Information That Helps Us Care for You: No Feels Safe at Home: Yes Safety Concerns: Feels Safe At This Time Childhood Exposure to Second-Hand Smoke: Yes Diet: regular caffeine: Yes (1 coffee 1 pepsi daily) Dental Care, Regularly: No Physical Activity Frequency: Does not Exercise Seatbelt Use: always Sunscreen Use: No Do you think of yourself as: straight/heterosexual Gender Identity: Male Assistive Devices: Cane and Walker Review of Systems All systems reviewed & are unremarkable except as noted in HPI & below. Physical Exam 80-year-old male reclining in hospital bed in good spirits. Left hip shows mild swelling and ecchymosis. Tenderness to palpation over the the left greater trochanter. Left lower extremity is neurovascular intact. Pitting edema noted in the lower extremity up to about mid calf making it difficult to find pedal pulses but cap refill is brisk. Results & Data Results & Data Laboratory Results . Diagnostic Findings . PG Care Time/CCT Total # of Minutes Spent Total Time Spent with Patient: Total time spent is greater than 50% in coordination of care (as documented) at patient's floor/unit and/or counseling patient: [place] [address] IN/OBS CONSULT LVL 5,80M (55 - DECISION FOR SURGERY) Patient Type New Medical Decision Making Moderate Complexity Diagnoses Fracture of left hip due to osteoporosis, initial encounter M80.052A Encounter type: initial encounter Laterality: left (1) Hip fracture due to osteoporosis Encounter type: initial encounter Laterality: left Qualified Code(s): M80.052A - Age-related osteoporosis with current pathological fracture, left femur, initial encounter for fracture
[2025-09-12 07:41] LABS: Anion Gap 10.0 (3-11); Blood Urea Nitrogen 26.0 mg/dl (6-23); Calcium 10.2 mg/dl (8.6-10.3); Carbon Dioxide 28.0 mmol/L (21-32); Chloride 103.0 mmol/L (98-107); Creatinine Clr Calc Pharmacy 30.7 ml/min; Glucose 92.0 mg/dl (70-99(Fasting)); Iron 29.0 mcg/dl (35-175); Magnesium 1.9 mg/dl (1.7-2.4); Potassium 4.0 mmol/L (3.5-5.1); Sodium 141.0 mmol/L (136-145); Total Iron Binding Cap Calc 318.0 mcg/dl (250-450); Transferrin 227.0 mg/dl (200-360); Transferrin (FE) Percent Satur 9.0 % (20-50)
[2025-09-12] MEDS ORDERED: BUPIVACAINE 0.5 % 5 MG/1 ML PF 10ML VIAL ONE (07:42)
--- NOTE | 2025-09-12 07:59 | Anesthesiology Consultation ---
Date of Service September 12, 2025 Assessment & Plan (1) Closed displaced fracture of left femoral neck: (2) Unable to care for self: (3) Fall: (4) Hip fracture due to osteoporosis: Chart Review Chart Review: Acceptable Risk for Surgery Consults Requested none ASA [id number] History Surgery Operation Date: 09/12/25 08:00 Proposed Procedures p Bipolar Hip Arthroplasty Anterior Tushar Echevarria, Height/Weight Height: 5 ft 7 in Weight: 65.913 kg Allergies Allergy/AdvReac Type Severity Reaction Status Date / Time Sulfa (Sulfonamide Allergy Intermediate HIVES Verified 08/10/25 08:40 Antibiotics) Medications Home Medications Medication Instructions Recorded Confirmed Last Taken potassium chloride 20 mEq oral 40 meq PO DAILY #30 ea 06/18/25 09/11/25 09/11/25 packet (Klor-Con) am carvedilol 6.25 mg tablet 6.25 mg PO BID #60 tabs 07/07/25 09/11/25 09/11/25 am aspirin 81 mg tablet,delayed 81 mg PO QAM 07/13/25 09/11/25 09/11/25 release (Adult Low Dose Aspirin) furosemide 40 mg tablet 40 mg PO QAM 1 month #90 tabs 07/15/25 09/11/25 09/11/25 triamcinolone acetonide 0.1 % 1 applic topical BID #80 grams 08/05/25 09/11/25 09/11/25 topical cream am carbidopa 25 mg-levodopa 100 mg 1 tab PO TID #90 tabs 09/01/25 09/11/25 Unknown tablet Active Medications Generic Name Dose Route Start Last Admin Trade Name Nir PRN Reason Stop Dose Admin Aspirin 81 mg 09/12/25 09:00 09/12/25 09:41 Aspirin 81 Mg Ectab PO 10/12/25 08:59 Not Given QAM PETER Carbidopa/Levodopa 1 tab 09/11/25 21:00 09/12/25 09:45 Carbidopa/Levodopa 25/100mg Tab PO 10/11/25 20:59 1 tab TID PETER Administration Carvedilol 6.25 mg 09/11/25 21:00 09/12/25 09:45 Carvedilol 6.25 Mg Tab PO 10/11/25 20:59 6.25 mg BID PETER Administration Furosemide 40 mg 09/12/25 09:00 09/12/25 09:45 Furosemide 40 Mg Tab PO 10/12/25 08:59 40 mg QAM PETER Administration Oxycodone HCl 5 mg 09/11/25 18:39 09/11/25 19:26 Oxycodone Hcl Ir 5 Mg Tab (Immediate Release) PO 09/25/25 18:38 5 mg Q4H PRN Administration MODERATE Pain (4,5,6) & Pre PT Potassium Chloride 40 meq 09/12/25 09:00 09/12/25 09:42 Potassium Chloride Pwd 20 Meq Pack PO 10/12/25 08:59 Not Given DAILY PETER NPO Date Last Intake of Fluids: 09/11/25 Time Last Intake of Fluids: 20:00 Date Last Intake of Solids: 09/11/25 Time Last Intake of Solids: 20:00 Past Medical History Medical History (Updated 09/12/25 @ 09:23 by Yelitza Nieves DO) Aortic stenosis, mild Vitamin D deficiency B12 deficiency Tobacco use disorder Renal mass Transient cerebral ischemia HTN (hypertension) Crohn's disease History of prostate cancer History of colon cancer Urge incontinence Depression Peripheral neuropathy Adult failure to thrive Generalized weakness Altered mental status CKD (chronic kidney disease), stage III Parkinsonism Chronic renal disease, stage 4, severely decreased glomerular filtration rate (GFR) between 15-29 mL/min/1.73 square meter Bilateral leg edema Elevated brain natriuretic peptide (BNP) level Hypervolemia associated with renal insufficiency Acute diastolic CHF (congestive heart failure) Uncontrolled hypertension Stroke-like symptom Amaurosis fugax of right eye (HFpEF) heart failure with preserved ejection fraction Dementia Aphasia Tremor Exercise / Class Metabolic Activity III < 4 Walking/Shop/Light housework Past Family History Family History Daughter Cancer Ovarian cancer Other Hypertension Denies family history of Prostate cancer Myocardial infarction Breast cancer Colorectal cancer Past Surgical History Surgical History S/P partial colectomy S/P TURP Past Anesthesia History No Hx of Anesthesia Complications and No Family Hx of Anesthesia Complications History of PONV No Hx of PONV and No Hx of Motion Sickness Social History Smoking Status: Current every day smoker tobacco type: cigarettes Smoking cigarettes per day: half pack per day Do You Dip or Chew Tobacco: No Hx Alcohol Use: No Hx Substance Use: No substance use type: does not use Physical Exam Vital Signs Last Vital Signs Temp 36.9 C 09/12/25 07:33 Pulse 87 09/12/25 07:33 Resp 18 09/12/25 07:33 BP 220/131 H 09/12/25 07:33 Pulse Ox 97 09/12/25 07:33 O2 Del Method Room Air 09/12/25 07:33 Constitutional + cachectic ENMT Mouth: + dentition abnormality (9 Lower remain) and + edentulous (upper); no TMJ abnormality Thyromental Distance: > or= 3.5 Finger Breadths Mallampati Class: II Neck normal visual inspection and trachea midline; neck extension not limited Respiratory normal respiratory effort Auscultation: lungs clear to auscultation bilaterally Cardiovascular Rate/Rhythm: regular rate and regular rhythm Heart Sounds: no murmur Musculoskeletal Spine: normal cervical ROM Extremities: full ROM of extremities Neurologic moves all extremities Psychiatric Orientation: alert and oriented x 3 Testing Laboratory Results 09/12/25 06:57 09/12/25 06:57 PT 10.9 Seconds (9.0-12.0) 09/11/25 14:00 INR 1.0 (0.9-1.1) 09/11/25 14:00 APTT 25 Seconds (21-31) 09/11/25 14:00 Urine Color Yellow 09/11/25 15:20 Urine Appearance Clear (Clear) 09/11/25 15:20 Urine pH 7.5 (4.5-7.5) 09/11/25 15:20 Ur Specific [place] 1.007 (1.000-1.030) 09/11/25 15:20 Urine Protein 1+ (Negative) H 09/11/25 15:20 Urine Glucose (UA) Negative (Negative) 09/11/25 15:20 Urine Ketones Negative (Negative) 09/11/25 15:20 Urine Nitrite Negative (Negative) 09/11/25 15:20 Ur Leukocyte Esterase Negative (Negative) 09/11/25 15:20 Urine WBC (Auto) 0-5 /hpf (0-5) 09/11/25 15:20 Urine RBC (Auto) 11-20 /hpf (0-2) H 09/11/25 15:20 U Hyaline Cast (Auto) 0-2 /lpf (0-2) 09/11/25 15:20 U Epithel Cells (Auto) 0-2 /hpf (0-2) 09/11/25 15:20 Urine Bacteria (Auto) None Seen (None Seen) 09/11/25 15:20 Electrocardiogram Date: 09/11/25 Findings: + NSR @ (94bpm with PVCs) and + LVH Chest X-Ray Date: 09/11/25 Findings: + NAD and + atelectasis Echocardiogram Date: 06/15/25 EF: 50% LV Function: normal RWMA: + none Valvular Disease: + (mild, no change from prior on 07/16/23) (3) Fall Encounter type: initial encounter Qualified Code(s): W19.XXXA - Unspecified fall, initial encounter (4) Hip fracture due to osteoporosis Encounter type: initial encounter Laterality: left Qualified Code(s): M 80.052A - Age-related osteoporosis with current pathological fracture, left femur, initial encounter for fracture
[2025-09-12 08:00] LABS: Ferritin 36.8 ng/ml (8-388)
[2025-09-12 08:06] LABS: Folate (Folic Acid),Ser orPlas 15.32 ng/ml (>5.38)
[2025-09-12 08:07] LABS: Vitamin B12 155.0 pg/ml (180-914)
--- NOTE | 2025-09-12 08:25 | History & Physical Bridge Note ---
Date of Service September 12, 2025 History & Physical Bridge Note I have examined the patient, reviewed the History & Physical and in the interval since the performance of the History & Physical I have noted the following changes of clinical significance: no changes noted
[2025-09-12] MEDS ORDERED: ONDANSETRON INJ 2 MG/ML 2 ML VIAL ONE (08:44)
[2025-09-12] MEDS ORDERED: LIDOCAINE 2% 2 ML VIAL/AMP(20MG/ML) INFIL ONE (08:44)
[2025-09-12] MEDS ORDERED: PROPOFOL IV EMULSION 10 MG/ML 20 ML VIAL IV ONE (08:44)
[2025-09-12] MEDS ORDERED: HYDROmorphone INJ 1 MG/ML SYRINGE IV PRN (09:23)
[2025-09-12] MEDS ORDERED: ATROPINE SULFATE 0.1 MG/ML 10ML SYR IV PRN (09:23)
[2025-09-12] MEDS ORDERED: MEPERIDINE HCL 25 MG/ML CARP/VIAL IV PRN (09:23)
[2025-09-12] MEDS ORDERED: ONDANSETRON INJ 2 MG/ML 2 ML VIAL IV PRN (09:23)
[2025-09-12] MEDS ORDERED: ALBUT/IPRATROP 3MG/0.5MG NEB 3 ML VIAL INH PRN (09:24)
[2025-09-12] MEDS: ASPIRIN 81 MG ECTAB PO SCH ×2 (09:41→20:02)
[2025-09-12] MEDS: POTASSIUM CHLORIDE PWD 20 MEQ PACK PO SCH (09:42)
[2025-09-12] MEDS: FUROSEMIDE 40 MG TAB PO SCH (09:45)
[2025-09-12] MEDS: TRANEXAMIC ACID / 0.7% NACL 1000MG/100ML BAG IV ONE (11:00)
[2025-09-12] MEDS ORDERED: VASOPRESSIN 20 UNIT/ML VIAL ONE ×2 (11:29→14:33)
[2025-09-12] MEDS: TRANEXAMIC ACID 100 MG/ML 10 ML VIAL IV ONE (12:00)
--- NOTE | 2025-09-12 13:36 | Operative Report ---
PG Post Operative Report Pre & Post Diagnosis Operation Date: 09/12/25 08:00 Pre-Op Diagnosis: Displaced left femoral neck fracture Post-Op Diagnosis: Displaced left femoral neck fracture I identified the patient and participated in the time-out.: Yes Procedure Operation Date: 09/12/25 08:00 Actual Procedures p Left Anterior Cemented Hip Hemiarthroplasty(Left) - Patel Echevarria DO Surgeon Patel Echevarria DO Irrigator Head Simeon Cohen PA-C Estimated Blood Loss 200 Findings Consistent with Post-Op Diagnosis Specimens Left femoral head Description of Procedure On September 12, 2025 Tray was brought down from her hospital room to the preoperative holding area. The operative extremity identified and signed. He was given a preoperative antibiotic and a spinal anesthetic. He was taken back the operating room and laid on the table in supine position. He is given basic sedation. The left leg was then brought out to a Purist leg positioner. The left hip was then prepped and draped sterile fashion. A timeout was done. The patient and the operative extremity was properly identified. An anterior approach was used. Dissection was taken down through the fascia. The rectus was retracted anteriorly and the vastus was retracted laterally. The circumflex vessels were ligated. The capsule was exposed. The capsule was then incised and tagged for later repair. A femoral neck cut was made and then the head and neck were removed. The acetabulum was then exposed. Time was spent removing any incarcerated ligamentum or labrum from inside the acetabulum. Several head trials were used and a size 49 seem to be the best fit. The proximal femur was then exposed. Sequential broaching up to a size 12 broach was done. A 28 mm head with a 0 neck was then placed and a 49 mm shell was placed over that. The hip was then reduced. Fluoroscopic images showed near anatomic alignment and good stability. The hip was then dislocated. The final size 11 mm [place] echo stem was then cemented into place. Once cement had hardened, a 28 mm head with a +0 neck was then snapped into a 49 mm shell. The head and shell assembly was then impacted onto the femoral stem. The hip was then reduced. Final fluoroscopic images showed anatomic reduction of the hip. The surgical site was then irrigated. The capsule was closed with #1 Vicryl. The fascia was closed with #0 PDS suture. Skin was closed with 2-0 Vicryl, 3-0 Vicryl, and zip ties. A Silverlon dressing was placed. He was then transferred back to a hospital bed and taken to the postanesthesia care unit in stable condition. He tolerated the procedure well. Simeon Cohen PA-C, was present for the entire procedure. He was critical for patient positioning, prepping, draping, retraction exposure, wound closure and application of sterile dressing. I attest to the content of the Intraoperative Record and any orders documented therein. Any exceptions are noted below.
--- NOTE | 2025-09-12 14:26 | Anesthesiology Progress Note ---
Date of Service September 12, 2025 Anesthesia Post Procedure Vital Signs Vital Signs: Temp Pulse Pulse Resp BP BP BP 09/12/25 14:20 93 H 21 120/80 09/12/25 14:10 103 H 24 126/78 09/12/25 14:00 95 H 18 126/77 09/12/25 13:50 92 H 18 130/78 09/12/25 13:40 36.5 C 95 H 18 142/80 H 09/12/25 13:30 98 H 20 144/87 H 09/12/25 13:20 93 H 18 145/103 H 09/12/25 13:10 96 H 23 163/95 H 09/12/25 13:00 95 H 19 178/100 H 09/12/25 12:50 93 H 17 182/107 H 09/12/25 12:40 88 17 196/120 H 09/12/25 12:30 87 16 198/117 H 09/12/25 12:22 36 C L 89 14 185/110 H 09/12/25 08:00 89 09/12/25 08:00 09/12/25 07:33 36.9 C 87 18 220/131 H 186/110 H 09/12/25 04:38 173/92 H 09/12/25 03:54 36.5 C 82 18 201/116 H 09/11/25 23:14 90 175/100 H 09/11/25 22:54 106 H 09/11/25 22:47 102 H 09/11/25 22:36 36.4 C L 102 H 16 186/113 H 09/11/25 20:54 96 H 18 172/98 H 09/11/25 19:28 09/11/25 19:05 09/11/25 18:44 36.4 C L 89 18 201/108 H 09/11/25 18:39 09/11/25 17:39 104 H 183/121 H 09/11/25 17:00 103 H 16 182/121 H 09/11/25 15:12 09/11/25 15:12 106 H 22 176/113 H Pulse Ox Pulse Ox O2 Del Method O2 Del Method O2 Flow Rate 09/12/25 14:20 91 Room Air 09/12/25 14:10 91 Room Air 09/12/25 14:00 93 Room Air 09/12/25 13:50 92 Room Air 09/12/25 13:40 92 Room Air 09/12/25 13:30 92 Room Air 09/12/25 13:20 92 Room Air 09/12/25 13:10 93 Room Air 09/12/25 13:00 94 Room Air 09/12/25 12:50 95 Room Air 09/12/25 12:40 95 Room Air 09/12/25 12:30 93 Oxymask 5 09/12/25 12:22 95 Oxymask 5 09/12/25 08:00 09/12/25 08:00 Room Air 09/12/25 07:33 97 Room Air 09/12/25 04:38 09/12/25 03:54 97 Room Air 09/11/25 23:14 09/11/25 22:54 09/11/25 22:47 09/11/25 22:36 94 Room Air 09/11/25 20:54 97 Room Air 09/11/25 19:28 Room Air 09/11/25 19:05 Room Air 09/11/25 18:44 94 Room Air 09/11/25 18:39 94 Room Air 09/11/25 17:39 09/11/25 17:00 95 09/11/25 15:12 95 Room Air 09/11/25 15:12 Notes Mental Status: alert / awake / arousable Patient Amnestic to Procedure: Yes Nausea / Vomiting: adequately controlled Pain: adequately controlled Airway Patency, RR, SpO2: stable & adequate BP & HR: stable & adequate Hydration State: stable & adequate Neuraxial Anesthesia: was administered and sensory block is resolving Anesthetic Complications: no major complications apparent
--- NOTE | 2025-09-12 14:37 | XRay Report ---
HISTORY: Left hip arthroplasty. TECHNIQUE: AP radiograph of the left hip. COMPARISON: Left hip radiograph dated 09/11/2025. FINDINGS: Newly placed left hip arthroplasty in appropriate alignment. No periprosthetic lucency or fractures identified. Visible pelvis appears intact. Intra-articular and soft tissue gas is likely postsurgical. Lateral soft tissue swelling. Atherosclerotic vascular disease. IMPRESSION: Expected postoperative appearance following left hip arthroplasty. Electronically signed by Prabhu Gunn 09-12-2025 2:37 PM
[2025-09-12] MEDS: CYANOCOBALAMIN 1000 MCG/ML VIAL IM SCH (16:46)
--- NOTE | 2025-09-12 17:05 | Hospitalist Progress Note ---
Date of Service September 12, 2025 Assessment & Plan (1) Hip fracture due to osteoporosis: (2) (HFpEF) heart failure with preserved ejection fraction: (3) Chronic renal disease, stage 4, severely decreased glomerular filtration rate (GFR) between 15-29 mL/min/1.73 square meter: (4) HTN (hypertension): Plan This patient is an 80-year-old male with a history of HTN, venous insufficiency, chronic HFpEF, possibly Lewy body dementia, parkinsonism, depression, CKD stage III, amaurosis fugax of right eye, renal mass, history of low-grade prostate cancer, vitamin B12 deficiency, and current smoker, who is admitted with osteoporotic left hip fracture s/p a mechanical ground-level fall onto his left hip. # Osteoporotic left hip fracture/fall/vitamin D deficiency-mechanical fall in the setting of parkinsonism and ambulatory dysfunction. No other injuries except left hand abrasion. Vitamin D is low at 21 - Orthopedic surgery performed left hemiarthroplasty on 09/12 - Continue pain control with IV morphine, oxycodone, and Tylenol as needed - Activity as per orthopedic surgery - Wound care consulted for left hand abrasion-with daily dressing changes - Follow CBC, BMP in the morning - PT/OT consults placed - Start vitamin D3 1000 units p.o. once daily #Borderline hypoxemia/current smoker-with pulse ox 90% in the ED and also given IV opioids. With elevated BNP was given Lasix in the ED thought to be from volume overload. Now weaned off supplemental O2 to room air. Could potentially have some element of COPD undiagnosed - Continue DuoNebs as needed - Counseled on smoking cessation-May need nicotine patch - Continue home p.o. Lasix #Possible acute on chronic HFpEF/venous insufficiency/uncontrolled HTN/history of amaurosis fugax-given IV Lasix as above for mildly low oxygen levels and elevated BNP. Blood pressures remain significantly elevated and required IV labetalol, IV hydralazine, and IV Lopressor on the night of admission. Now improved s/p hip surgery and hypertension may have been related to pain. Lower extremity edema is improved since admission but remains in his chronic - Continue home Lasix and increase home carvedilol to 12.5 mg p.o. twice daily - Continue Daily weights, strict I's and O's, Faustin catheter in place -Add hydralazine 10 mg IV every 8 hours as needed SBP greater than 190 - Monitor on telemetry #CKD stage III/history of renal mass/history of prostate cancer-renal function at or below baseline at 1.7 - Follow BMP in the a.m. - Renally dose medications and avoid nephrotoxic meds - Continue Faustin catheter for now but remove when able to get up with PT #Chronic anemia/B12 deficiency-hemoglobin at baseline at 10-11, normocytic. Iron studies show mixed chronic disease and iron deficiency with transferrin saturation 9%, ferritin low normal at 36. With severely low vitamin B12 level at 155. Folate normal. Recent TSH normal - Start vitamin B12 1000 mcg IM daily x 3 doses followed by 1000 mcg p.o. daily - Follow CBC -Add on ferrous sulfate 325 mg p.o. once daily #Parkinsonism/possible Lewy body dementia/depression-follows with neurology - Continue carbidopa/levodopa 3 times daily - Not currently on medications for depression DVT prophylaxis-SCDs, aspirin 81 mg p.o. twice daily Disposition-continued stay on medical floor with telemetry, but can likely downgrade to medical once blood pressures are under better control. PT/OT consults pending and will likely need rehab Admission and Anticipated Discharge Date Admission Date: September 11, 2025 Subjective Patient seen after return from hip surgery and he reports he is feeling better. Denies chest pains or shortness of breath, no nausea. Pain is controlled in the hip. Blood pressures were severely elevated overnight and he was given IV labetalol in addition to the previous IV hydralazine on Lopressor. Telemetry with normal sinus rhythm, PVCs with rates in the 90s Physical Exam Physical Exam: General: - Alert: Yes - Oriented: Yes - GCS 15: Yes HEENT: - No pain/tenderness. - No lacerations/abrasions - No numbness/tingling - PERLAA. Normal Visual Acuity. N o visual field cuts. No nystagmus. No contact lenses. Normal hearing. No relative afferent pupillary defect. No facial asymmetry. Normal palatal elevation, uvula midline. Midline tongue protrusion. Shoulder shrug with 5/5 strength bilaterally. - Mucous membranes moist. Neck: - Midline Tenderness: No - Cleared C-Spine: Yes Thorax: - Pain/Tenderness: None - Lacerations/Abrasions: None - Swelling/Ecchymosis: None - Air/Bony Crepitus: None Cardiopulmonary: - Regular Rate and Rhythm. No mur murs, rubs or gallops. - Breath sounds CTAB. No wheezes, rales, or rhonchi. - Symmetrical Chest Rise Abdomen - Pain/Tenderness: None - Lacerations/Abrasions: None - No abdominal distension - Abdominal rigidity/guarding: No ne - Bowel Sounds: Present, normal - Pelvis stable Back/Spine - Lacerations/Abrasions: None - Swelling/Ecchymosis: None - Pain/Tenderness: None - Step-offs: None Extremities: - RUE: No deformity. No laceratio ns/abrasions. No swelling/ecchymosis. No pain/tenderness. Full active and passive range of motion. Oven Operator Automatic strength, elbow flexion/extension, shoulder flexion/extension/abduction/adduction/external rotation/internal rotation intact with 5/5 strength. Sensation intact to soft touch without deficit. - LUE: No deformity. No laceratio ns/abrasions. No swelling/ecchymosis. No pain/tenderness. Full active and passive range of motion. Oven Operator Automatic strength, elbow flexion/extension, shoulder flexion/extension/abduction/adduction/external rotation/internal rotation intact with 5/5 strength. Sensation intact to soft t ouch without deficit. - RLE: No deformity. No laceratio ns/abrasions. No swelling/ecchymosis. No pain/tenderness. Full active and passive range of motion. Hip flexion/extension, knee flexion/extension, ankle dorsiflexion/plantarflexion with 5/5 strength. Sensation intact to soft touch without deficit. - LLE: No deformity. No laceratio ns/abrasions. No swelling/ecchymosis. Left anterior hip dressing clean dry and intact Mental status Adequate for Full Exam: Yes C-Spine Cleared (Radiologically AND Clinically): Yes Constitutional: WD/WN, vitals as above Neck: trachea midline, no thyromegaly Respiratory: normal respiratory effort, lungs clear to auscultation Cardiovascular: Rate/Rhythm: regular rate and regular rhythm Heart Sounds: no murmur Extremities: + edema (1+ pitting edema of the lower extremities bilaterally, improved) Chest (Breasts): Chest: normal inspection of chest Gastrointestinal (Abdomen): normal bowel sounds, soft, nontender, no hepatosplenomegaly Musculoskeletal: Extremities: + extremities abnormal to inspection (Left anterior hip with dressing in place C/D/I), no cyanosis and no clubbing Skin: no rashes, warm and dry (Left dorsal hand with abrasion with dressing in place) Neurologic: moves all extremities and awake; no focal motor deficits Speech / Cognition: normal speech, no expressive aphasia and normal cognition Motor/Sensory: + tremor (Resting tremor in hands) Genitourinary: + penis abnormality (Faustin catheter in p lace draining clear yellow urine) Results & Data Results & Data Vital Signs (Past 12 Hours) Vital Signs Temp Pulse Pulse Resp BP BP Pulse Ox 09/12/25 16:38 36.6 C 97 H 16 156/88 H 94 09/12/25 16:05 36.5 C 88 16 153/86 H 94 09/12/25 15:35 36.6 C 97 H 18 156/80 H 94 09/12/25 15:20 36.6 C 94 H 20 138/81 92 09/12/25 15:05 36.8 C 94 H 18 150/78 H 93 09/12/25 14:50 36.7 C 101 H 18 142/82 H 93 09/12/25 14:40 100 H 19 137/85 93 09/12/25 14:30 37.3 C 106 H 21 139/75 92 09/12/25 14:20 93 H 21 120/80 91 09/12/25 14:10 103 H 24 126/78 91 09/12/25 14:00 95 H 18 126/77 93 09/12/25 13:50 92 H 18 130/78 92 09/12/25 13:40 36.5 C 95 H 18 142/80 H 92 09/12/25 13:30 98 H 20 144/87 H 92 09/12/25 13:20 93 H 18 145/103 H 92 09/12/25 13:10 96 H 23 163/95 H 93 09/12/25 13:00 95 H 19 178/100 H 94 09/12/25 12:50 93 H 17 182/107 H 95 09/12/25 12:40 88 17 196/120 H 95 09/12/25 12:30 87 16 198/117 H 93 09/12/25 12:22 36 C L 89 14 185/110 H 95 09/12/25 08:00 89 09/12/25 08:00 09/12/25 07:33 36.9 C 87 18 220/131 H 186/110 H 97 O2 Del Method O2 Flow Rate 09/12/25 16:38 Room Air 09/12/25 16:05 Room Air 09/12/25 15:35 Room Air 09/12/25 15:20 Room Air 09/12/25 15:05 Room Air 09/12/25 14:50 Room Air 09/12/25 14:40 Room Air 09/12/25 14:30 Room Air 09/12/25 14:20 Room Air 09/12/25 14:10 Room Air 09/12/25 14:00 Room Air 09/12/25 13:50 Room Air 09/12/25 13:40 Room Air 09/12/25 13:30 Room Air 09/12/25 13:20 Room Air 09/12/25 13:10 Room Air 09/12/25 13:00 Room Air 09/12/25 12:50 Room Air 09/12/25 12:40 Room Air 09/12/25 12:30 Oxymask 5 09/12/25 12:22 Oxymask 5 09/12/25 08:00 09/12/25 08:00 Room Air 09/12/25 07:33 Room Air Laboratory Results CBC, BMP, B12, folate, iron studies, vitamin D, magnesium, COVID/flu/RSV reviewed PG Care Time/CCT Total # of Minutes Spent Total Time Spent with Patient: Total time spent is greater than 50% in coordination of care (as documented) at patient's floor/unit and/or counseling patient: Coding Level of Care Code 74153 SUB INP/OBS CARE 3/50MIN Diagnoses Fracture of left hip due to osteoporosis, initial encounter M80.052A Encounter type: initial encounter Laterality: left (HFpEF) heart failure with preserved ejection fraction I50.30 Chronic renal disease, stage 4, severely decreased glomerular filtration rate (GFR) between 15-29 mL/min/1.73 square meter N18.4 HTN (hypertension) I10 (1) Hip fracture due to osteoporosis Encounter type: initial encounter Laterality: left Qualified Code(s): M80.052A - Age-related osteoporosis with current pathological fracture, left femur, initial encounter for fracture
[2025-09-12] MEDS: MoRPHine SULFATE 2 MG/ML CARP IV PRN (22:48)
[2025-09-13 06:17] LABS: Hematocrit (blood only) 28.9 % (42.0-52.0); Hemoglobin 9.2 g/dl (14.0-18.0); Immature Granulocytes # (auto) 0.04 K/uL (0.01-0.20); Immature Granulocytes % (auto) 0.3 %; Mean Corpuscular Hemoglobin 28.4 pg (25.0-34.0); Mean Corpuscular Volume 89.2 fL (80.0-100.0); Platelet Count 236 K/uL (130-400); RDW Standard Deviation 48.7 fL (36.4-46.3); Red Blood Count 3.24 M/uL (4.70-6.10); White Blood Count 12.13 K/ul (4.8-10.8)
[2025-09-13 06:39] LABS: Anion Gap 8.0 (3-11); Blood Urea Nitrogen 31.0 mg/dl (6-23); Calcium 9.4 mg/dl (8.6-10.3); Carbon Dioxide 26.0 mmol/L (21-32); Chloride 107.0 mmol/L (98-107); Creatinine Clr Calc Pharmacy 21.6 ml/min; Glucose 100.0 mg/dl (70-99(Fasting)); Potassium 3.9 mmol/L (3.5-5.1); Sodium 141.0 mmol/L (136-145)
[2025-09-13] MEDS: CHOLECALCIFEROL 25 MCG (1000 UNITS) TAB PO SCH (08:50)
[2025-09-13] MEDS: FERROUS SULFATE 325 MG TAB PO SCH (08:51)
--- NOTE | 2025-09-13 09:41 | Fluoroscopy Report ---
FL hip LT 2-3V CLINICAL HISTORY: LT TAYLOR COMPARISON STUDY: 09/11/2025 FLUOROSCOPY TIME: 12 seconds FLUOROSCOPY IMAGES: 1 EXPOSURE DOSE: 1 mGy FINDINGS: Fluoroscopy was provided for left hip prosthesis. IMPRESSION: Intraoperative fluoroscopy. ACT 112: Negative or not required by law. Electronically signed by: Marcus Perez M.D. 09/13/2025 9:40 AM
[2025-09-13 10:31] LABS: Prealbumin 12.2 mg/dl (20-40)
--- NOTE | 2025-09-13 10:52 | Orthopedic Progress Note ---
Date of Service September 13, 2025 Assessment & Plan (1) Closed displaced fracture of left femoral neck: * Continue Current Treatment * S/p left hip hemiarthroplasty * Weight bearing status: WBAT, no precautions * Daily treatment: Physical Therapy/ Occupational Therapy per protocol * Pain control * Continue to monitor for ABLA * DVT prophylaxis, ok to resume from ortho standpoint * Disposition: TBD * Office/hospital f/u 2 weeks for progress check and staple/suture removal * Remainder care per primary team * Stable for discharge from ortho standpoint, further planning per primary team Subjective .Active Problems: S/p left hip hemiarthroplasty POD 1 80 y/o male s/p left hip hemiarthroplasty. Doing well overall, pain managed and improved function. Denies fever/chills, chest pain/SOB, nausea/vomiting. Otherwise no complaints. Review of Systems All systems reviewed & are unremarkable except as noted in HPI & below. Physical Exam . * General: Alert and oriented, no acute distress * Constitutional: well-developed, well-nourished. * Respiratory: Normal respiratory effort, no distress * Gastrointestinal: No tenderness to palpation, no rigidity or guarding. * Skin: No rash or lesion. * Neurologic: Grossly normal * Musculoskeletal: left hip surgical dressing CDI, not removed for exam. Otherwise no obvious deformity or overlying skin changes. Diffuse TTP proximal thigh and hip region. Otherwise no specific tenderness of distal thigh, lower leg, foot/ankle. AROM hip flexion intact. AROM foot/ankle intact. Sensation intact plantar/dorsal foot. Brisk capillary refill. Results & Data Results & Data Laboratory Results . Diagnostic Findings . Hip X-Ray 09/12/25 00:00 FL hip LT 2-3V CLINICAL HISTORY: LT TAYLOR COMPARISON STUDY: 09/11/2025 FLUOROSCOPY TIME: 12 seconds FLUOROSCOPY IMAGES: 1 EXPOSURE DOSE: 1 mGy FINDINGS: Fluoroscopy was provided for left hip prosthesis. IMPRESSION: Intraoperative fluoroscopy. ACT 112: Negative or not required by law. Electronically signed by: Marcus Perez M.D. 09/13/2025 9:40 AM Hip X-Ray 09/12/25 14:02 HISTORY: Left hip arthroplasty. TECHNIQUE: AP radiograph of the left hip. COMPARISON: Left hip radiograph dated 09/11/2025. FINDINGS: Newly placed left hip arthroplasty in appropriate alignment. No periprosthetic lucency or fractures identified. Visible pelvis appears intact. Intra-articular and soft tissue gas is likely postsurgical. Lateral soft tissue swelling. Atherosclerotic vascular disease. IMPRESSION: Expected postoperative appearance following left hip arthroplasty. Electronically signed by Prabhu Gunn 09-12-2025 2:37 PM PG Care Time/CCT Total # of Minutes Spent Total Time Spent with Patient: Total time spent is greater than 50% in coordination of care (as documented) at patient's floor/unit and/or counseling patient: Coding Level of Care Code 20073 Post Operative Follow-Up Diagnoses Closed displaced fracture of left femoral neck S72.002A
[2025-09-13] MEDS: MAGNESIUM HYDROXIDE SUSP 30 ML UDC PO PRN (11:36)
[2025-09-13] MEDS: AMMONIUM LACTATE 12% LOTION 225 GM BTL EXT PRN (12:07)
--- NOTE | 2025-09-13 15:53 | Hospitalist Progress Note ---
Date of Service September 13, 2025 Assessment & Plan (1) Hip fracture due to osteoporosis: (2) (HFpEF) heart failure with preserved ejection fraction: (3) Chronic renal disease, stage 4, severely decreased glomerular filtration rate (GFR) between 15-29 mL/min/1.73 square meter: (4) HTN (hypertension): Plan This patient is an 80-year-old male with a history of HTN, venous insufficiency, chronic HFpEF, possibly Lewy body dementia, parkinsonism, depression, CKD stage III, amaurosis fugax of right eye, renal mass, history of low-grade prostate cancer, vitamin B12 deficiency, and current smoker, who is admitted with osteoporotic left hip fracture s/p a mechanical ground-level fall onto his left hip. # Osteoporotic left hip fracture/fall/vitamin D deficiency-mechanical fall in the setting of parkinsonism and ambulatory dysfunction. No other injuries except left hand abrasion. Vitamin D is low at 21 - Orthopedic surgery performed left hemiarthroplasty on 09/12 - Continue pain control with IV morphine, oxycodone, and Tylenol as needed - Activity as per orthopedic surgery - Wound care consulted for left hand abrasion-with daily dressing changes - Follow CBC, BMP in the morning - PT/OT consults placed - Start vitamin D3 1000 units p.o. once daily - Doing well #RAUL #Acute on chronic CKD - monitor UOP, oral intake improving, volume overload state, continue lasix, daily monitoring - sykes out this AM #Borderline hypoxemia/current smoker-with pulse ox 90% in the ED and also given IV opioids. With elevated BNP was given Lasix in the ED thought to be from volume overload. Now weaned off supplemental O2 to room air. Could potentially have some element of COPD undiagnosed - Continue DuoNebs as needed - Counseled on smoking cessation-May need nicotine patch - Continue home p.o. Lasix #Possible acute on chronic HFpEF/venous insufficiency/uncontrolled HTN/history of amaurosis fugax-given IV Lasix as above for mildly low oxygen levels and elevated BNP. Blood pressures remain significantly elevated and required IV labetalol, IV hydralazine, and IV Lopressor on the night of admission. Now improved s/p hip surgery and hypertension may have been related to pain. Lower extremity edema is improved since admission but remains in his chronic - Continue home Lasix and increase home carvedilol to 12.5 mg p.o. twice daily - Continue Daily weights, strict I's and O's, Sykes catheter in place -Add hydralazine 10 mg IV every 8 hours as needed SBP greater than 190 - Monitor on telemetry #CKD stage III/history of renal mass/history of prostate cancer-renal function at or below baseline at 1.7 - Follow BMP in the a.m. - Renally dose medications and avoid nephrotoxic meds - Continue Sykes catheter for now but remove when able to get up with PT #Chronic anemia/B12 deficiency-hemoglobin at baseline at 10-11, normocytic. Iron studies show mixed chronic disease and iron deficiency with transferrin saturation 9%, ferritin low normal at 36. With severely low vitamin B12 level at 155. Folate normal. Recent TSH normal - Start vitamin B12 1000 mcg IM daily x 3 doses followed by 1000 mcg p.o. daily - Follow CBC - Continue ferrous sulfate 325 mg p.o. once daily #Parkinsonism/possible Lewy body dementia/depression-follows with neurology - Continue carbidopa/levodopa 3 times daily - Not currently on medications for depression DVT prophylaxis-SCDs, aspirin 81 mg p.o. twice daily Disposition- BP stabilizing, watching renal function and UOP may need increased dose, likely to need rehab on DC Admission and Anticipated Discharge Date Admission Date: September 11, 2025 Subjective doing okay this morning. Per nursing staff had minimal to no pain. Getting worried were to work with therapy this morning. Eating adequately. No problems with bowel function. No new complaints or concerns per staff. Review of telemetry unremarkable rate in the 80s90s Physical Exam Physical Exam: Head: NC/AT; Eyes: PERRL, EOMI. No discharge or redness; Mouth and throat: MMM. Normal gums, mucosa, palate,. Good dentition. NECK: Supple, with no masses. CV: RRR, no m/r/g. LUNGS: CTAB, no w/r/c. ABD: Soft, NT/ND, NBS, no masses or organomegaly. : sykes in place SKIN: Warm, well perfused. No skin rashes or abnormal lesions. MSK: No deformities, Normal gait. EXT: 2+ edema Results & Data Results & Data Vital Signs (Past 12 Hours) Vital Signs Temp Pulse Pulse Resp BP Pulse Ox O2 Del Method 09/13/25 15:28 36.9 C 81 18 153/86 H 92 Nasal Cannula 09/13/25 14:15 72 09/13/25 11:27 36.5 C 71 16 154/81 H 93 Nasal Cannula 09/13/25 10:52 78 09/13/25 07:29 36.9 C 80 18 164/93 H 95 Nasal Cannula O2 Flow Rate 09/13/25 15:28 2 09/13/25 14:15 09/13/25 11:27 2 09/13/25 10:52 09/13/25 07:29 2 Laboratory Results 09/13/25 05:44 WBC 12.13 H RBC 3.24 L Hgb 9.2 L Hct 28.9 L MCV 89.2 MCH 28.4 MCHC 31.8 L RDW Std Deviation 48.7 H RDW Coeff of Ruiz 15.3 H Plt Count 236 MPV 9.9 Immature Gran % (Auto) 0.3 Neut % (Auto) 86.0 Lymph % (Auto) 3.6 Jackson % (Auto) 9.7 Eos % (Auto) 0.2 Baso % (Auto) 0.2 Neut # (Auto) 10.43 H Lymph # (Auto) 0.44 L Jackson # (Auto) 1.18 H Eos # (Auto) 0.02 Baso # (Auto) 0.02 Immature Gran # (Auto) 0.04 Sodium 141 Potassium 3.9 Chloride 107 Carbon Dioxide 26 Anion Gap 8 BUN 31 H Creatinine 2.25 H D Est Cr Clr Drug Dosing 21.6 eGFR 28.40 BUN/Creatinine Ratio 13.8 Glucose 100 H Calcium 9.4 Prealbumin 12.2 L PG Care Time/CCT Total # of Minutes Spent Total Time Spent with Patient: Total time spent is greater than 50% in coordination of care (as documented) at patient's floor/unit and/or counseling patient: Coding Level of Care Code 59508 SUB INP/OBS CARE MIN Diagnoses Fracture of left hip due to osteoporosis, initial encounter M80.052A Encounter type: initial encounter Laterality: left (HFpEF) heart failure with preserved ejection fraction I50.30 Chronic renal disease, stage 4, severely decreased glomerular filtration rate (GFR) between 15-29 mL/min/1.73 square meter N18.4 HTN (hypertension) I10 (1) Hip fracture due to osteoporosis Encounter type: initial encounter Laterality: left Qualified Code(s): M80.052A - Age-related osteoporosis with current pathological fracture, left femur, initial encounter for fracture
[2025-09-14 06:03] LABS: Hematocrit (blood only) 27.8 % (42.0-52.0); Hemoglobin 9.1 g/dl (14.0-18.0); Immature Granulocytes # (auto) 0.04 K/uL (0.01-0.20); Immature Granulocytes % (auto) 0.3 %; Mean Corpuscular Hemoglobin 29.4 pg (25.0-34.0); Mean Corpuscular Volume 89.7 fL (80.0-100.0); Platelet Count 206 K/uL (130-400); RDW Standard Deviation 49.1 fL (36.4-46.3); Red Blood Count 3.10 M/uL (4.70-6.10); White Blood Count 12.73 K/ul (4.8-10.8)
[2025-09-14 06:18] LABS: Anion Gap 6 (3-11); Blood Urea Nitrogen 43 mg/dl (6-23); Calcium 9.5 mg/dl (8.6-10.3); Carbon Dioxide 28 mmol/L (21-32); Chloride 104 mmol/L (98-107); Creatinine Clr Calc Pharmacy 19.4 ml/min; Glucose 92 mg/dl (70-99(Fasting)); Potassium 4.3 mmol/L (3.5-5.1); Sodium 138 mmol/L (136-145)
[2025-09-14 06:22] LABS: Alanine Aminotransferase < 3 U/L (7-52); Albumin Globulin Ratio 0.9 (0.9-2); Albumin Level 3.0 gm/dl (3.4-5.0); Alkaline Phosphatase 63 U/L (34-104); Bilirubin,Total 0.4 mg/dl (0.2-1.0); Globulin 3.3 gm/dl (2.5-4.0); Magnesium 2.2 mg/dl (1.7-2.4); Total Protein 6.3 gm/dl (6.0-8.3)
--- NOTE | 2025-09-14 10:28 | Orthopedic Progress Note ---
Date of Service September 14, 2025 Assessment & Plan (1) Closed displaced fracture of left femoral neck: * Continue Current Treatment * S/p left hip hemiarthroplasty * Weight bearing status: WBAT, no precautions * Daily treatment: Physical Therapy/ Occupational Therapy per protocol * Pain control * Continue to monitor for ABLA * DVT prophylaxis, ok to resume from ortho standpoint * Disposition: TBD * Office/hospital f/u 2 weeks for progress check and staple/suture removal * Remainder care per primary team * Stable for discharge from ortho standpoint, further planning per primary team Subjective Active Problems: S/p left hip hemiarthroplasty POD 2 80 y/o male s/p left hip hemiarthroplasty. Doing well overall, pain managed and improved function. Denies fever/chills, chest pain/SOB, nausea/vomiting. Otherwise no complaints. Review of Systems All systems reviewed & are unremarkable except as noted in HPI & below. Physical Exam * Musculoskeletal: left hip surgical dressing CDI, not removed for exam. Otherwise no obvious deformity or overlying skin changes. Diffuse TTP proximal thigh and hip region. Otherwise no specific tenderness of distal thigh, lower leg, foot/ankle. AROM hip flexion intact. AROM foot/ankle intact. Sensation intact plantar/dorsal foot. Brisk capillary refill. Results & Data Results & Data Laboratory Results . Diagnostic Findings . PG Care Time/CCT Total # of Minutes Spent Total Time Spent with Patient: Total time spent is greater than 50% in coordination of care (as documented) at patient's floor/unit and/or counseling patient: Coding Level of Care Code 05791 Post Operative Follow-Up Diagnoses Closed displaced fracture of left femoral neck S72.002A
[2025-09-14] MEDS: SODIUM CHLORIDE 0.9% 500 ML IV SCH (12:45)
--- NOTE | 2025-09-14 16:15 | Hospitalist Progress Note ---
Date of Service September 14, 2025 Assessment & Plan (1) Hip fracture due to osteoporosis: (2) (HFpEF) heart failure with preserved ejection fraction: (3) Chronic renal disease, stage 4, severely decreased glomerular filtration rate (GFR) between 15-29 mL/min/1.73 square meter: (4) HTN (hypertension): Plan This patient is an 80-year-old male with a history of HTN, venous insufficiency, chronic HFpEF, possibly Lewy body dementia, parkinsonism, depression, CKD stage III, amaurosis fugax of right eye, renal mass, history of low-grade prostate cancer, vitamin B12 deficiency, and current smoker, who is admitted with osteoporotic left hip fracture s/p a mechanical ground-level fall onto his left hip. # Osteoporotic left hip fracture/fall/vitamin D deficiency-mechanical fall in the setting of parkinsonism and ambulatory dysfunction. No other injuries except left hand abrasion. Vitamin D is low at 21 - Orthopedic surgery performed left hemiarthroplasty on 09/12 - Continue pain control with IV morphine, oxycodone, and Tylenol as needed - Activity as per orthopedic surgery - Wound care consulted for left hand abrasion-with daily dressing changes - Follow CBC, BMP ar stable - PT/OT consults placed, see assessments, participating - Start vitamin D3 1000 units p.o. once daily - Doing well, working with PT and OT, slower recovery expected given comorbidities, he would benefit from inpatient rehab to manage comorbidities, vision challneges, OA and leg edema and continue hip procesure progress. #RAUL #Acute on chronic CKD - monitor UOP, oral intake improving, volume overload state, continue lasix, daily monitoring - sykes out this AM, s/p fluid bolus, will add another 500 and maintenance, clincially dry on exam - AM BMP #Borderline hypoxemia/current smoker-with pulse ox 90% in the ED and also given IV opioids. With elevated BNP was given Lasix in the ED thought to be from volume overload. Now weaned off supplemental O2 to room air. Could potentially have some element of COPD undiagnosed - Continue DuoNebs as needed - Counseled on smoking cessation-May need nicotine patch - will hold lasix for now. Gentle fluids as above. Monitor respiratory function #Possible acute on chronic HFpEF/venous insufficiency/uncontrolled HTN/history of amaurosis fugax-given IV Lasix as above for mildly low oxygen levels and elevated BNP. Blood pressures remain significantly elevated and required IV labetalol, IV hydralazine, and IV Lopressor on the night of admission. Now improved s/p hip surgery and hypertension may have been related to pain. Lower extremity edema is improved since admission but remains in his chronic - Continue home Lasix and increase home carvedilol to 12.5 mg p.o. twice daily - Continue Daily weights, strict I's and O's, Sykes catheter in place -Add hydralazine 10 mg IV every 8 hours as needed SBP greater than 190 - Monitor on telemetry #CKD stage III/history of renal mass/history of prostate cancer-renal function at or below baseline at 1.7 - Follow BMP in the a.m., stable creat but below baseline over last 48 hours - Renally dose medications and avoid nephrotoxic meds - Continue Sykes catheter for now but remove when able to get up with PT #Chronic anemia/B12 deficiency-hemoglobin at baseline at 10-11, normocytic. Iron studies show mixed chronic disease and iron deficiency with transferrin saturation 9%, ferritin low normal at 36. With severely low vitamin B12 level at 155. Folate normal. Recent TSH normal - Start vitamin B12 1000 mcg IM daily x 3 doses followed by 1000 mcg p.o. daily - Follow CBC - Continue ferrous sulfate 325 mg p.o. once daily #Parkinsonism/possible Lewy body dementia/depression-follows with neurology - Continue carbidopa/levodopa 3 times daily - Not currently on medications for depression DVT prophylaxis-SCDs, aspirin 81 mg p.o. twice daily Disposition- BP stabilizing, watching renal function and UOP may need increased dose, likely to need rehab on DC Admission and Anticipated Discharge Date Admission Date: September 11, 2025 Subjective doing okay this morning. No new complaints or concerns per patient. He was resting in bed watching television. Has been up with therapy. States that his pain is fairly well-controlled overall. His appetite overall has been low. We briefly discussed his kidney function and blood counts. Things are generally stable. No difficulties or problems with urination Physical Exam Physical Exam: Head: NC/AT; Eyes: PERRL, EOMI. No discharge or redness; Mouth and throat: MMM. Normal gums, mucosa, palate,. Good dentition. NECK: Supple, with no masses. CV: RRR, 2/6 MAMI at the left upper sternal border. LUNGS: CTAB, no w/r/c. ABD: Soft, NT/ND, NBS, no masses or organomegaly. : sykes in place SKIN: Warm, well perfused. No skin rashes or abnormal lesions. MSK: No deformities, Normal gait. EXT: 2+ edema Results & Data Results & Data Vital Signs (Past 12 Hours) Vital Signs Temp Pulse Resp BP Pulse Ox O2 Del Method 09/14/25 15:58 36.8 C 82 18 137/70 93 Room Air 09/14/25 11:21 36.8 C 91 H 18 138/81 90 Room Air 09/14/25 10:12 Room Air 09/14/25 07:27 37.2 C 84 18 168/90 H 93 Room Air Laboratory Results 09/14/25 05:30 WBC 12.73 H RBC 3.10 L Hgb 9.1 L Hct 27.8 L MCV 89.7 MCH 29.4 MCHC 32.7 RDW Std Deviation 49.1 H RDW Coeff of Ruiz 15.3 H Plt Count 206 MPV 10.6 Immature Gran % (Auto) 0.3 Neut % (Auto) 85.0 Lymph % (Auto) 4.9 Treasure % (Auto) 9.3 Eos % (Auto) 0.3 Baso % (Auto) 0.2 Neut # (Auto) 10.82 H Lymph # (Auto) 0.62 L Treasure # (Auto) 1.19 H Eos # (Auto) 0.04 Baso # (Auto) 0.02 Immature Gran # (Auto) 0.04 Sodium 138 Potassium 4.3 Chloride 104 Carbon Dioxide 28 Anion Gap 6 BUN 43 H Creatinine 2.50 H Est Cr Clr Drug Dosing 19.4 eGFR 25.02 BUN/Creatinine Ratio 17.2 Glucose 92 Calcium 9.5 Magnesium 2.2 Total Bilirubin 0.4 AST 11 L ALT < 3 L Alkaline Phosphatase 63 B-Natriuretic Peptide 651 H Total Protein 6.3 Albumin 3.0 L Globulin 3.3 Albumin/Globulin Ratio 0.9 PG Care Time/CCT Total # of Minutes Spent Total Time Spent with Patient: Total time spent is greater than 50% in coordination of care (as documented) at patient's floor/unit and/or counseling patient: Coding Level of Care Code 51796 SUB INP/OBS CARE 2/35MIN Diagnoses Fracture of left hip due to osteoporosis, initial encounter M80.052A Encounter type: initial encounter Laterality: left (HFpEF) heart failure with preserved ejection fraction I50.30 Chronic renal disease, stage 4, severely decreased glomerular filtration rate (GFR) between 15-29 mL/min/1.73 square meter N18.4 HTN (hypertension) I10 (1) Hip fracture due to osteoporosis Encounter type: initial encounter Laterality: left Qualified Code(s): M80.052A - Age-related osteoporosis with current pathological fracture, left femur, initial encounter for fracture
[2025-09-15 08:51] LABS: Hematocrit (blood only) 29.4 % (42.0-52.0); Hemoglobin 9.3 g/dl (14.0-18.0); Immature Granulocytes # (auto) 0.02 K/uL (0.01-0.20); Immature Granulocytes % (auto) 0.2 %; Mean Corpuscular Hemoglobin 28.3 pg (25.0-34.0); Mean Corpuscular Volume 89.4 fL (80.0-100.0); Platelet Count 251 K/uL (130-400); RDW Standard Deviation 49.3 fL (36.4-46.3); Red Blood Count 3.29 M/uL (4.70-6.10); White Blood Count 9.36 K/ul (4.8-10.8)
[2025-09-15 09:09] LABS: Anion Gap 5.0 (3-11); Blood Urea Nitrogen 42.0 mg/dl (6-23); Calcium 10.1 mg/dl (8.6-10.3); Carbon Dioxide 32.0 mmol/L (21-32); Chloride 104.0 mmol/L (98-107); Creatinine Clr Calc Pharmacy 23.2 ml/min; Glucose 93.0 mg/dl (70-99(Fasting)); Magnesium 2.2 mg/dl (1.7-2.4); Potassium 3.5 mmol/L (3.5-5.1); Sodium 141.0 mmol/L (136-145)
--- NOTE | 2025-09-15 11:10 | Orthopedic Progress Note ---
Date of Service September 15, 2025 Assessment & Plan (1) Closed displaced fracture of left femoral neck: * Continue Current Treatment * S/p left hip hemiarthroplasty * Weight bearing status: WBAT, no precautions * Daily treatment: Physical Therapy/ Occupational Therapy per protocol * Pain control * Continue to monitor for ABLA * DVT prophylaxis, ok to resume from ortho standpoint * Disposition: TBD * Office/hospital f/u 2 weeks for progress check and staple/suture removal * Remainder care per primary team * Stable for discharge from ortho standpoint, further planning per primary team Subjective Active Problems: S/p left hip hemiarthroplasty POD 3 80 y/o male s/p left hip hemiarthroplasty. Doing well overall, pain managed and improved function. Denies fever/chills, chest pain/SOB, nausea/vomiting. Otherwise no complaints. Review of Systems All systems reviewed & are unremarkable except as noted in HPI & below. Physical Exam * Musculoskeletal: left hip surgical dressing CDI, not removed for exam. Otherwise no obvious deformity or overlying skin changes. Diffuse TTP proximal thigh and hip region. Otherwise no specific tenderness of distal thigh, lower leg, foot/ankle. AROM hip flexion intact. AROM foot/ankle intact. Sensation intact plantar/dorsal foot. Brisk capillary refill. Results & Data Results & Data Laboratory Results . Diagnostic Findings . PG Care Time/CCT Total # of Minutes Spent Total Time Spent with Patient: Total time spent is greater than 50% in coordination of care (as documented) at patient's floor/unit and/or counseling patient: Coding Level of Care Code 06847 Post Operative Follow-Up Diagnoses Closed displaced fracture of left femoral neck S72.002A
--- NOTE | 2025-09-15 13:00 | Fluoroscopy Report ---
FL video swallow CLINICAL HISTORY: r/o aspiration. TECHNIQUE: Video fluoroscopic evaluation of swallowing was performed in the AP and lateral projection s by the speech pathology staff. The patient is fed nectar-thick and thin liquid barium, a barium coa shama wafer, and barium pudding. FLUOROSCOPY TIME: 49 seconds. COMPARISON: None FINDINGS: There is a large Zenker's diverticulum. No aspiration was seen during the exam. IMPRESSION: Large Zenker's diverticulum with no aspiration seen during the exam. ACT 112: Negative or not required by law. Electronically signed by: Marcus Perez M.D. 09/15/2025 12:59 PM
[2025-09-15 13:12] LABS: Appearance Urine Clear (Clear); Bacteria Urine Automated None Seen (None Seen); Epithelial Cell Urine Auto 0-2 /hpf (0-2); Glucose Urine UA Negative (Negative); RBC Urine Automated 0-2 /hpf (0-2); WBC Urine Automated 0-5 /hpf (0-5)
[2025-09-15] MEDS: CYANOCOBALAMIN (B-12) 500 MCG TABLET PO SCH (13:20)
--- NOTE | 2025-09-15 13:33 | Hospitalist Progress Note ---
Date of Service September 15, 2025 Assessment & Plan (1) Hip fracture due to osteoporosis: (2) (HFpEF) heart failure with preserved ejection fraction: (3) Chronic renal disease, stage 4, severely decreased glomerular filtration rate (GFR) between 15-29 mL/min/1.73 square meter: (4) HTN (hypertension): Plan This patient is an 80-year-old male with a history of HTN, venous insufficiency, chronic HFpEF, possibly Lewy body dementia, parkinsonism, depression, CKD stage III, amaurosis fugax of right eye, renal mass, history of low-grade prostate cancer, vitamin B12 deficiency, and current smoker, who is admitted with osteoporotic left hip fracture s/p a mechanical ground-level fall onto his left hip. # Osteoporotic left hip fracture/fall/vitamin D deficiency-mechanical fall in the setting of parkinsonism and ambulatory dysfunction. No other injuries except left hand abrasion. Vitamin D is low at 21 - Orthopedic surgery performed left hemiarthroplasty on 09/12 - Continue pain control with IV morphine, oxycodone, and Tylenol as needed - Activity as per orthopedic surgery - Wound care consulted for left hand abrasion-with daily dressing changes - Follow CBC, BMP ar stable - PT/OT consults placed, see assessments, participating - Start vitamin D3 1000 units p.o. once daily - Doing well, working with PT and OT, slower recovery expected given comorbidities, he would benefit from inpatient rehab to manage comorbidities, vision challneges, OA and leg edema and continue hip procesure progress. #RAUL #Acute on chronic CKD - monitor UOP, oral intake improving, volume overload state, continue lasix, daily monitoring - sykes out this AM, s/p fluid bolus, will add another 500 and maintenance, clincially dry on exam - AM BMP interval stability with mild improvement. Continue to hold Lasix # oropharyngeal dysphagia - new diagnosis, uncertain clinical significance but likely substantial. seeing results of video swallow. Large Zenker's diverticulum. No safe diet can be recommended at this time. Has been eating for a while no evidence of active aspiration however his inflammatory markers are increasing - we will plan for a conference with caregivers to decide on decision making, given increase in CRP will trend markers and obtain a CT scan of the chest To risk stratified based on long-term sequela of silent aspiration #elevated inflammatory markers - no clear source. likely related to aspiration as above. See oropharyngeal dysphagia, continue to trend #Borderline hypoxemia/current smoker-with pulse ox 90% in the ED and also given IV opioids. With elevated BNP was given Lasix in the ED thought to be from volume overload. Now weaned off supplemental O2 to room air. Could potentially have some element of COPD undiagnosed - Continue DuoNebs as needed - Counseled on smoking cessation-May need nicotine patch - will hold lasix for now. Gentle fluids as above. Monitor respiratory function #Possible acute on chronic HFpEF/venous insufficiency/uncontrolled HTN/history of amaurosis fugax-given IV Lasix as above for mildly low oxygen levels and elevated BNP. Blood pressures remain significantly elevated and required IV labetalol, IV hydralazine, and IV Lopressor on the night of admission. Now improved s/p hip surgery and hypertension may have been related to pain. Lower extremity edema is improved since admission but remains in his chronic - Continue home Lasix and increase home carvedilol to 12.5 mg p.o. twice daily - Continue Daily weights, strict I's and O's, Sykes catheter in place -Add hydralazine 10 mg IV every 8 hours as needed SBP greater than 190 - Monitor on telemetry #CKD stage III/history of renal mass/history of prostate cancer-renal function at or below baseline at 1.7 - Follow BMP in the a.m., stable creat but below baseline over last 48 hours - Renally dose medications and avoid nephrotoxic meds - Continue Sykes catheter for now but remove when able to get up with PT #Chronic anemia/B12 deficiency-hemoglobin at baseline at 10-11, normocytic. Iron studies show mixed chronic disease and iron deficiency with transferrin saturation 9%, ferritin low normal at 36. With severely low vitamin B12 level at 155. Folate normal. Recent TSH normal - Start vitamin B12 1000 mcg IM daily x 3 doses followed by 1000 mcg p.o. daily - Follow CBC - Continue ferrous sulfate 325 mg p.o. once daily #Parkinsonism/possible Lewy body dementia/depression-follows with neurology - Continue carbidopa/levodopa 3 times daily - Not currently on medications for depression DVT prophylaxis-SCDs, aspirin 81 mg p.o. twice daily Disposition- BP stabilizing, watching renal function and UOP may need increased dose, likely to need rehab on DC Admission and Anticipated Discharge Date Admission Date: September 11, 2025 Subjective sitting up at the bedside. No events overnight. Has been n.p.o. pending speech evaluation this morning. Going to have a video swallow. Pain has been well-controlled. Has been working with PT and OT. No significant clinical changes. No events per nursing. No new concerns per patient Physical Exam Physical Exam: Head: NC/AT; Eyes: PERRL, EOMI. No discharge or redness; Mouth and throat: MMM. Normal gums, mucosa, palate,. Good dentition. NECK: Supple, with no masses. CV: RRR, 2/6 MAMI at the left upper sternal border. LUNGS: CTAB, no w/r/c. ABD: Soft, NT/ND, NBS, no masses or organomegaly. : sykes in place SKIN: Warm, well perfused. No skin rashes or abnormal lesions. MSK: No deformities, Normal gait. EXT: 2+ edema Results & Data Results & Data Vital Signs (Past 12 Hours) Vital Signs Temp Pulse Pulse Resp BP BP Pulse Ox 09/15/25 10:59 36.5 C 88 17 174/103 H 165/92 H 96 09/15/25 08:06 09/15/25 07:39 82 09/15/25 07:27 36.5 C 80 18 170/105 H 92 09/15/25 02:09 36.8 C 77 18 180/97 H 172/102 H 90 O2 Del Method O2 Flow Rate 09/15/25 10:59 Room Air 09/15/25 08:06 Room Air 09/15/25 07:39 09/15/25 07:27 Nasal Cannula 2 09/15/25 02:09 Room Air Laboratory Results 09/15/25 09/15/25 Unknown 08:25 WBC 9.36 RBC 3.29 L Hgb 9.3 L Hct 29.4 L MCV 89.4 MCH 28.3 MCHC 31.6 L RDW Std Deviation 49.3 H RDW Coeff of Ruiz 15.2 H Plt Count 251 MPV 10.2 Immature Gran % (Auto) 0.2 Neut % (Auto) 78.7 Lymph % (Auto) 6.5 Kendall % (Auto) 12.1 Eos % (Auto) 2.0 Baso % (Auto) 0.5 Neut # (Auto) 7.36 H Lymph # (Auto) 0.61 L Kendall # (Auto) 1.13 H Eos # (Auto) 0.19 Baso # (Auto) 0.05 Immature Gran # (Auto) 0.02 Sodium 141 Potassium 3.5 Chloride 104 Carbon Dioxide 32 Anion Gap 5 BUN 42 H Creatinine 2.10 H D Est Cr Clr Drug Dosing 23.2 eGFR 30.85 BUN/Creatinine Ratio 20.0 Glucose 93 Calcium 10.1 Magnesium 2.2 C-Reactive Protein 18.39 H Urine Color Yellow Urine Appearance Clear Urine pH 7.5 Ur Specific [place] 1.009 Urine Protein 1+ H Urine Glucose (UA) Negative Urine Ketones Negative Urine Blood Trace H Urine Nitrite Negative Urine Bilirubin Negative Urine Urobilinogen Negative Ur Leukocyte Esterase Trace H Urine WBC (Auto) 0-5 Urine RBC (Auto) 0-2 U Hyaline Cast (Auto) 3-5 H U Epithel Cells (Auto) 0-2 Urine Bacteria (Auto) None Seen Urine Comment PG Care Time/CCT Total # of Minutes Spent Total Time Spent with Patient: Total time spent is greater than 50% in coordination of care (as documented) at patient's floor/unit and/or counseling patient: Coding Level of Care Code 95277 SUB INP/OBS CARE 2MIN Diagnoses Fracture of left hip due to osteoporosis, initial encounter M80.052A Encounter type: initial encounter Laterality: left (HFpEF) heart failure with preserved ejection fraction I50.30 Chronic renal disease, stage 4, severely decreased glomerular filtration rate (GFR) between 15-29 mL/min/1.73 square meter N18.4 HTN (hypertension) I10 (1) Hip fracture due to osteoporosis Encounter type: initial encounter Laterality: left Qualified Code(s): M80.052A - Age-related osteoporosis with current pathological fracture, left femur, initial encounter for fracture
--- NOTE | 2025-09-15 13:34 | Hospitalist Progress Note ---
Date of Service September 15, 2025 Assessment & Plan Admission and Anticipated Discharge Date Admission Date: September 11, 2025 Results & Data Results & Data Vital Signs (Past 12 Hours) Vital Signs Temp Pulse Pulse Resp BP BP Pulse Ox 09/15/25 10:59 36.5 C 88 17 174/103 H 165/92 H 96 09/15/25 08:06 09/15/25 07:39 82 09/15/25 07:27 36.5 C 80 18 170/105 H 92 09/15/25 02:09 36.8 C 77 18 180/97 H 172/102 H 90 O2 Del Method O2 Flow Rate 09/15/25 10:59 Room Air 09/15/25 08:06 Room Air 09/15/25 07:39 09/15/25 07:27 Nasal Cannula 2 09/15/25 02:09 Room Air PG Care Time/CCT Total # of Minutes Spent Total Time Spent with Patient: Total time spent is greater than 50% in coordination of care (as documented) at patient's floor/unit and/or counseling patient: Coding
--- NOTE | 2025-09-15 16:20 | CT Scan Report ---
CT chest without contrast History: aspiration pneumonitis Comparison: None Technique: Helical CT imaging of the chest performed without IV contrast Dose reduction techniques were achieved by using automatic exposure control and/or adjustment of mA and/or kV according to patient size and/or use of iterative reconstruction technique. Findings: A small focus of platelike atelectasis/scarring seen in the medial right lower lobe. No consolidation or nodularity. Small left and trace right pleural effusion with subjacent atelectasis seen. No pneumothorax. Heart size is enlarged. Heavy coronary and heavy aortic valve calcifications. Mitral annular calcifications.. The thoracic aorta is normal in size. The pulmonary artery is normal in size. No significant pericardial effusion. No suspicious lymphadenopathy in the chest. The central airway is clear. A small diverticulum, containing oral contrast appears to be seen in the upper esophagus. Limited visualized upper abdomen. No acute bony abnormalities. Impression: Pleural effusions, as above. Small focus of atelectasis or scar in the medial right lower lobe, which may represent sequelae of prior infection or aspiration. No visualized acute aspiration. A small diverticulum of the upper esophagus is seen containing oral contrast, such as Zenker's diverticulum. Consider follow-up fluoroscopic swallow study. Electronically signed by Luciano Cohen 09-15-2025 4:20 PM
[2025-09-15] MEDS: NICOTINE 14 MG/24 HR PATCH TD SCH (17:43)
[2025-09-16] MEDS: HALOPERIDOL LACTATE 5 MG/ML 1 ML VIAL IV STA (00:39)
[2025-09-16 09:51] LABS: Hematocrit (blood only) 25.8 % (42.0-52.0); Hemoglobin 8.3 g/dl (14.0-18.0); Immature Granulocytes # (auto) 0.02 K/uL (0.01-0.20); Immature Granulocytes % (auto) 0.3 %; Mean Corpuscular Hemoglobin 28.7 pg (25.0-34.0); Mean Corpuscular Volume 89.3 fL (80.0-100.0); Platelet Count 247 K/uL (130-400); RDW Standard Deviation 49.2 fL (36.4-46.3); Red Blood Count 2.89 M/uL (4.70-6.10); White Blood Count 6.70 K/ul (4.8-10.8)
[2025-09-16] MEDS: REMOVE NICODERM PATCH SCH (10:03)
[2025-09-16 10:09] LABS: Alanine Aminotransferase < 3 U/L (7-52); Albumin Globulin Ratio 0.7 (0.9-2); Albumin Level 2.6 gm/dl (3.4-5.0); Alkaline Phosphatase 60 U/L (34-104); Anion Gap 6 (3-11); Bilirubin,Total 0.6 mg/dl (0.2-1.0); Blood Urea Nitrogen 43 mg/dl (6-23); Calcium 9.4 mg/dl (8.6-10.3); Carbon Dioxide 28 mmol/L (21-32); Chloride 107 mmol/L (98-107); Creatinine Clr Calc Pharmacy 22.3 ml/min; Globulin 3.6 gm/dl (2.5-4.0); Glucose 87 mg/dl (70-99(Fasting)); Potassium 3.8 mmol/L (3.5-5.1); Sodium 141 mmol/L (136-145); Total Protein 6.2 gm/dl (6.0-8.3)
--- NOTE | 2025-09-16 14:17 | Hospitalist Progress Note ---
Date of Service September 16, 2025 Assessment & Plan (1) Hip fracture due to osteoporosis: (2) (HFpEF) heart failure with preserved ejection fraction: (3) Chronic renal disease, stage 4, severely decreased glomerular filtration rate (GFR) between 15-29 mL/min/1.73 square meter: (4) HTN (hypertension): Plan This patient is an 80-year-old male with a history of HTN, venous insufficiency, chronic HFpEF, possibly Lewy body dementia, parkinsonism, depression, CKD stage III, amaurosis fugax of right eye, renal mass, history of low-grade prostate cancer, vitamin B12 deficiency, and current smoker, who is admitted with osteoporotic left hip fracture s/p a mechanical ground-level fall onto his left hip. # Osteoporotic left hip fracture/fall/vitamin D deficiency-mechanical fall in the setting of parkinsonism and ambulatory dysfunction. No other injuries except left hand abrasion. Vitamin D is low at 21 - Orthopedic surgery performed left hemiarthroplasty on 09/12 - Continue pain control with IV morphine, oxycodone, and Tylenol as needed - Activity as per orthopedic surgery - Wound care consulted for left hand abrasion-with daily dressing changes - Follow CBC, BMP ar stable - PT/OT consults placed, see assessments, participating - Start vitamin D3 1000 units p.o. once daily - Doing well, working with PT and OT, slower recovery expected given comorbidities, he would benefit from inpatient rehab to manage comorbidities, vision challneges, OA and leg edema and continue hip procesure progress. #RAUL #Acute on chronic CKD - monitor UOP, oral intake improving, volume overload state, continue lasix, daily monitoring - sykes out this AM, s/p fluid bolus, will add another 500 and maintenance, clincially dry on exam - AM BMP interval stability with mild improvement. Continue to hold Lasix - stable but persistent decrease in his baseline urinary function, will consult to nephrology. Suspect this is prerenal related to above, urinalysis cannot rule out ATN # oropharyngeal dysphagia - new diagnosis, uncertain clinical significance but likely substantial. seeing results of video swallow. Large Zenker's diverticulum. No safe diet can be recommended at this time. Has been eating for a while no evidence of active aspiration however his inflammatory markers are increasing - see speech therapy notes for Zenker's diverticulum, ENT referred to either [facility] or [facility] for further management and clipping. No evident providers available here. CT scan was negative showing no signs of silent or prior aspiration. There was no evidence of this on his swallow study at this time either. Will continue with oral diet, likely to be referred as an outpatient for the Zenker's #elevated inflammatory markers - no clear source. likely related to aspiration as above. See oropharyngeal dysphagia, continue to trend - stable to improving. CRP still at 60 #Borderline hypoxemia/current smoker-with pulse ox 90% in the ED and also given IV opioids. With elevated BNP was given Lasix in the ED thought to be from volume overload. Now weaned off supplemental O2 to room air. Could potentially have some element of COPD undiagnosed - Continue DuoNebs as needed - Counseled on smoking cessation-May need nicotine patch - will hold lasix for now. Gentle fluids as above. Monitor respiratory function #Possible acute on chronic HFpEF/venous insufficiency/uncontrolled HTN/history of amaurosis fugax-given IV Lasix as above for mildly low oxygen levels and elevated BNP. Blood pressures remain significantly elevated and required IV labetalol, IV hydralazine, and IV Lopressor on the night of admission. Now improved s/p hip surgery and hypertension may have been related to pain. Lower extremity edema is improved since admission but remains in his chronic - Continue home Lasix and increase home carvedilol to 12.5 mg p.o. twice daily - Continue Daily weights, strict I's and O's, Sykes catheter in place -Add hydralazine 10 mg IV every 8 hours as needed SBP greater than 190 - telemetry unremarkable, BP within range to moderately hypertensive #CKD stage III/history of renal mass/history of prostate cancer-renal function at or below baseline at 1.7 - Follow BMP in the a.m., stable creat but below baseline over last 48 hours - Renally dose medications and avoid nephrotoxic meds - Continue Sykes catheter for now but remove when able to get up with PT - nephrology as above #Chronic anemia/B12 deficiency-hemoglobin at baseline at 10-11, normocytic. Iron studies show mixed chronic disease and iron deficiency with transferrin saturation 9%, ferritin low normal at 36. With severely low vitamin B12 level at 155. Folate normal. Recent TSH normal - Start vitamin B12 1000 mcg IM daily x 3 doses followed by 1000 mcg p.o. daily - Follow CBC - Continue ferrous sulfate 325 mg p.o. once daily #Parkinsonism/possible Lewy body dementia/depression-follows with neurology - Continue carbidopa/levodopa 3 times daily - Not currently on medications for depression - requiring medications for agitation last night. Stable and back at baseline this morning. DVT prophylaxis-SCDs, aspirin 81 mg p.o. twice daily Disposition- BP stabilizing, watching renal function and UOP may need increased dose, likely to need rehab on DC Admission and Anticipated Discharge Date Admission Date: September 11, 2025 Subjective doing okay this morning. Resting comfortably. Reportedly quite agitated through the night requiring a dose of Seroquel and Zyprexa. He does have a history of similar. I did get a note back from ENT. He would need referral for care at either [facility] or [facility] for the Zenker's diverticulum noted by speech yesterday. Reviewed with family the CT scan results shows no or minimal evidence of chronic or prior aspiration. Overall will have him resume oral intake. Likely to be able to follow as an outpatient for management of the Zenker's Physical Exam Physical Exam: Head: NC/AT; Eyes: PERRL, EOMI. No discharge or redness; Mouth and throat: MMM. Normal gums, mucosa, palate,. Good dentition. NECK: Supple, with no masses. CV: RRR, 2/6 MAMI at the left upper sternal border. LUNGS: CTAB, no w/r/c. ABD: Soft, NT/ND, NBS, no masses or organomegaly. : sykes in place SKIN: Warm, well perfused. No skin rashes or abnormal lesions. MSK: No deformities, Normal gait. EXT:1+ edema Results & Data Results & Data Vital Signs (Past 12 Hours) Vital Signs Temp Pulse Resp BP Pulse Ox O2 Del Method 09/16/25 11:28 36.5 C 76 18 163/81 H 93 Room Air 09/16/25 10:55 Room Air 09/16/25 07:50 36.9 C 98 H 20 173/81 H 90 Room Air Laboratory Results 09/16/25 09:18 WBC 6.70 RBC 2.89 L Hgb 8.3 L Hct 25.8 L MCV 89.3 MCH 28.7 MCHC 32.2 RDW Std Deviation 49.2 H RDW Coeff of Ruiz 15.3 H Plt Count 247 MPV 10.3 Immature Gran % (Auto) 0.3 Neut % (Auto) 75.4 Lymph % (Auto) 7.5 Riley % (Auto) 14.0 Eos % (Auto) 2.4 Baso % (Auto) 0.4 Neut # (Auto) 5.05 Lymph # (Auto) 0.50 L Riley # (Auto) 0.94 H Eos # (Auto) 0.16 Baso # (Auto) 0.03 Immature Gran # (Auto) 0.02 Sodium 141 Potassium 3.8 Chloride 107 Carbon Dioxide 28 Anion Gap 6 BUN 43 H Creatinine 2.17 H Est Cr Clr Drug Dosing 22.3 eGFR 29.66 BUN/Creatinine Ratio 19.8 Glucose 87 Calcium 9.4 Total Bilirubin 0.6 AST 11 L ALT < 3 L Alkaline Phosphatase 60 C-Reactive Protein 16.08 H Total Protein 6.2 Albumin 2.6 L Globulin 3.6 Albumin/Globulin Ratio 0.7 L Procalcitonin 0.[address] 09/15/25 13:35 CT chest without contrast History: aspiration pneumonitis Comparison: None Technique: Helical CT imaging of the chest performed without IV contrast Dose reduction techniques were achieved by using automatic exposure control and/or adjustment of mA and/or kV according to patient size and/or use of iterative reconstruction technique. Findings: A small focus of platelike atelectasis/scarring seen in the medial right lower lobe. No consolidation or nodularity. Small left and trace right pleural effusion with subjacent atelectasis seen. No pneumothorax. Heart size is enlarged. Heavy coronary and heavy aortic valve calcifications. Mitral annular calcifications.. The thoracic aorta is normal in size. The pulmonary artery is normal in size. No significant pericardial effusion. No suspicious lymphadenopathy in the chest. The central airway is clear. A small diverticulum, containing oral contrast appears to be seen in the upper esophagus. Limited visualized upper abdomen. No acute bony abnormalities. Impression: Pleural effusions, as above. Small focus of atelectasis or scar in the medial right lower lobe, which may represent sequelae of prior infection or aspiration. No visualized acute aspiration. A small diverticulum of the upper esophagus is seen containing oral contrast, such as Zenker's diverticulum. Consider follow-up fluoroscopic swallow study. Electronically signed by Luciano Cohen 09-15-2025 4:20 PM PG Care Time/CCT Total # of Minutes Spent Total Time Spent with Patient: Total time spent is greater than 50% in coordination of care (as documented) at patient's floor/unit and/or counseling patient: Coding Level of Care Code 19720 SUB INP/OBS CARE 235MIN Diagnoses Fracture of left hip due to osteoporosis, initial encounter M80.052A Encounter type: initial encounter Laterality: left (HFpEF) heart failure with preserved ejection fraction I50.30 Chronic renal disease, stage 4, severely decreased glomerular filtration rate (GFR) between 15-29 mL/min/1.73 square meter N18.4 HTN (hypertension) I10 (1) Hip fracture due to osteoporosis Encounter type: initial encounter Laterality: left Qualified Code(s): M80.052A - Age-related osteoporosis with current pathological fracture, left femur, initial encounter for fracture
--- NOTE | 2025-09-16 16:46 | Nephrology Consultation ---
Date of Consultation September 16, 2025 Assessment & Plan (1) RAUL (acute kidney injury): Non-oliguric. Creatinine improved to 2.17 mg/dL. RAUL appears to have been hemodynamically mediated. Urine is acellular. Electrolytes are normal. Volume status acceptable. There is no indication for HAND BOOKBINDER. Medications are appropriate for kidney function. Document I/O's. Repeat serum metabolic profile tomorrow AM. (2) CKD (chronic kidney disease): CKD III-IV A3. CKD attributed to smoking history, hypertension, and history of RAUL. Follows with Dr. Anderson. Volume status controlled with furosemide 40 mg daily. (3) Anemia: Post operative acute on chronic anemia. Iron profile will be obtained with AM labs. Repeat H/H tomorrow AM. MOHINI therapy has not been required in the past. (4) Renal mass: Imaging reviewed. This lesion has been stable. Monitoring is provided through the [facility] urology clinic. History of Present Illness Reason for Consultation: Possible ATN on CKD Requesting Physician: Enoc Walton MD Attending Physician: Enoc Walton MD History of Present Illness Mr. Tray Fenton is an 80 year-old male with Parkinson's disease, dementia (Lewy body), prostate cancer ([place] 3+3=6; WAYNE + HGIN; under surveillance), hypertension, venous insufficiency, and chronic kidney disease. Tray presented to [facility] on September 11 with left sided hip pain s/p fall from standing. Evaluation demonstrated a left femoral neck fracture. Left hemiarthroplasty was performed on September [address] Echevarria with no reported complications. Tray had evidence of acute on chronic HFpEF on admission which was treated with diuretics. He is currently maintained on his home dose of furosemide + KCl. Tray has dysphagia and decreased oral intake. Diet is minced and moist. 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 He has had agitation managed throughout the hospitalization. Treatment has included Seroquel, Zyprexa, and PRN haloperidol. Pain controlled with PRN morphine. Serum creatinine peaked at 2.5 mg/dL on September 14 and has improved to 2.17 mg/dL. Pain has been controlled with PRN morphine. UA notable for +1 protein. Microscopy demonstrating hyaline casts. Urine remains acellular. Faustin recently removed. Tray is non-oliguric. Faustin catheter was placed yesterday for evidence of urinary retention. Faustin is draining clear yellow urine. Tray has followed with Dr. Anderson in the [facility] nephrology clinic. He has CKD III A3. Baseline creatinine ~1.7-2.2 mg/dL. PCR 2.4 g/g. CKD attributed to hypertension, smoking history, and history of RAUL. He has not had significant se quela of CKD. He has not required MOHINI therapy for anemia or medical therapy for CKD/MBD. Imaging of the kidneys notable for symmetric cortical atrophy and a complex 1.7 cm left midpole cyst which has been monitored through the [facility] urology clinic. Allergies Allergy/AdvReac Type Severity Reaction Status Date / Time Sulfa (Sulfonamide Allergy Intermediate HIVES Verified 08/10/25 08:40 Antibiotics) Home Medications Medication Instructions Recorded Confirmed Type potassium chloride 20 mEq oral 40 meq PO DAILY #30 ea 06/18/25 09/11/25 Rx packet (Klor-Con) carvedilol 6.25 mg tablet 6.25 mg PO BID #60 tabs 07/07/25 09/11/25 Rx aspirin 81 mg tablet,delayed 81 mg PO QAM 07/13/25 09/11/25 History release (Adult Low Dose Aspirin) furosemide 40 mg tablet 40 mg PO QAM 1 month #90 tabs 07/15/25 09/11/25 Rx triamcinolone acetonide 0.1 % 1 applic topical BID #80 grams 08/05/25 09/11/25 Rx topical cream carbidopa 25 mg-levodopa 100 mg 1 tab PO TID #90 tabs 09/01/25 09/11/25 Rx tablet Patient History Medical History (Updated 09/16/25 @ 17:26 by Lee Pena DO) Aortic stenosis, mild Vitamin D deficiency B12 deficiency Tobacco use disorder Renal mass Transient cerebral ischemia HTN (hypertension) Crohn's disease History of prostate cancer History of colon cancer Urge incontinence Depression Peripheral neuropathy Adult failure to thrive Generalized weakness Altered mental status CKD (chronic kidney disease), stage III Parkinsonism Chronic renal disease, stage 4, severely decreased glomerular filtration rate (GFR) between 15-29 mL/min/1.73 square meter Bilateral leg edema Elevated brain natriuretic peptide (BNP) level Hypervolemia associated with renal insufficiency Acute diastolic CHF (congestive heart failure) Uncontrolled hypertension Stroke-like symptom Amaurosis fugax of right eye (HFpEF) heart failure with preserved ejection fraction Dementia Aphasia Tremor Surgical History S/P partial colectomy S/P TURP Family History Daughter Cancer Ovarian cancer Other Hypertension Denies family history of Prostate cancer Myocardial infarction Breast cancer Colorectal cancer Social History Smoking Status: Current every day smoker Tobacco Type: Cigarettes Age Started Using Tobacco: 76; packs per day: 0.50; Cigarettes Per Day: half pack per day; Second Hand Exposure: No; Do You Dip or Chew Tobacco: No; Hx Alcohol Use: No Hx Substance Use: No Preferred Language: Iranian Communication Ability: Effective Visual Impairment: No Limitations Hearing Ability: Normal Mess Attendant Crew Required: No Beliefs That Will Affect Care: None marital status: Current Living Situation: Spouse Current Living Situation Comment: lives w/ in house current occupational status: retired Feels Safe at Home: Yes Childhood Exposure to Second-Hand Smoke: Yes Diet: regular caffeine: Yes (1 coffee 1 pepsi daily) Dental Care, Regularly: No Physical Activity Frequency: Does not Exercise Seatbelt Use: always Sunscreen Use: No Do you think of yourself as: straight/heterosexual Gender Identity: Male Assistive Devices: Cane and Walker Review of Systems Review of Systems: All systems reviewed & are unremarkable except as noted in HPI & below (limited due to dementia ) Physical Exam Constitutional: + thin and + frail appearing; no acute d istress Eyes: + anicteric sclerae; no conjunctival abn ormality ENMT: Mouth: oral mucous membranes not dry Neck: normal visual inspection and trachea midline Respiratory: normal respiratory effort Auscultation: lungs clear to auscultation bilaterally Cardiovascular: Rate/Rhythm: regular rate and regular rhythm Heart Sounds: normal S1 and normal S2 Extremities: + pedal edema and + varicosities Musculoskeletal: Extremities: no cyanosis and no clubbing Skin: + turgor decreased; no jaundice Neurologic: Motor/Sensory: no tremor and no asterixis Genitourinary: Faustin draining clear yellow urine Results & Data Vital Signs (Past 12 Hours) Vital Signs Temp Pulse Pulse Resp BP Pulse Ox O2 Del Method 09/16/25 15:39 36.4 C L 66 18 124/75 95 Room Air 09/16/25 11:28 36.5 C 76 18 163/81 H 93 Room Air 09/16/25 10:55 Room Air 09/16/25 08:06 78 09/16/25 07:50 36.9 C 98 H 20 173/81 H 90 Room Air Laboratory Results Laboratory Results - last 24 hr 09/16/25 09:18 WBC 6.70 RBC 2.89 L Hgb 8.3 L Hct 25.8 L MCV 89.3 MCH 28.7 MCHC 32.2 RDW Std Deviation 49.2 H RDW Coeff of Ruiz 15.3 H Plt Count 247 MPV 10.3 Immature Gran % (Auto) 0.3 Neut % (Auto) 75.4 Lymph % (Auto) 7.5 [place] % (Auto) 14.0 Eos % (Auto) 2.4 Baso % (Auto) 0.4 Neut # (Auto) 5.05 Lymph # (Auto) 0.50 L [place] # (Auto) 0.94 H Eos # (Auto) 0.16 Baso # (Auto) 0.03 Immature Gran # (Auto) 0.02 Sodium 141 Potassium 3.8 Chloride 107 Carbon Dioxide 28 Anion Gap 6 BUN 43 H Creatinine 2.17 H Est Cr Clr Drug Dosing 22.3 eGFR 29.66 BUN/Creatinine Ratio 19.8 Glucose 87 Calcium 9.4 Total Bilirubin 0.6 AST 11 L ALT < 3 L Alkaline Phosphatase 60 C-Reactive Protein 16.08 H Total Protein 6.2 Albumin 2.6 L Globulin 3.6 Albumin/Globulin Ratio 0.7 L Procalcitonin 0.[address] chest without contrast History: aspiration pneumonitis Comparison: None Technique: Helical CT imaging of the chest performed without IV contrast Dose reduction techniques were achieved by using automatic exposure control and/or adjustment of mA and/or kV according to patient size and/or use of iterative reconstruction technique. Findings: A small focus of platelike atelectasis/scarring seen in the medial right lower lobe. No consolidation or nodularity. Small left and trace right pleural effusion with subjacent atelectasis seen. No pneumothorax. Heart size is enlarged. Heavy coronary and heavy aortic valve calcifications. Mitral annular calcifications.. The thoracic aorta is normal in size. The pulmonary artery is normal in size. No significant pericardial effusion. No suspicious lymphadenopathy in the chest. The central airway is clear. A small diverticulum, containing oral contrast appears to be seen in the upper esophagus. Limited visualized upper abdomen. No acute bony abnormalities. Impression: Pleural effusions, as above. Small focus of atelectasis or scar in the medial right lower lobe, which may represent sequelae of prior infection or aspiration. No visualized acute aspiration. A small diverticulum of the upper esophagus is seen containing oral contrast, such as Zenker's diverticulum. Consider follow-up fluoroscopic swallow study. US Retroperitoneal Limited, Renal - June 2025 COMPARISON: 08/06/2024 FINDINGS: Right kidney: Right kidney measures 9 cm. No hydronephrosis. A few cortical cysts largest in the superior pole measuring 7.3 x 7.3 x 6.7 centimeters. Left kidney: Left kidney measures 9.5 cm. A few cortical cysts. Potentially solid lesion measuring 1.4 x 1.5 x 1.7 cm in the midpole. No hydronephrosis. Bladder: Trabeculated bladder. Other findings: Prostatomegaly. IMPRESSION: 1. No hydronephrosis. 2. Complex lesion in the left midpole measuring up to 1.7 cm again visualized which appears unchanged. Consider nonemergent renal protocol MRI for further characterization. 3. Trabeculated bladder. 4. Prostatomegaly. PG Care Time/CCT Total # of Minutes Spent Total Time Spent with Patient: Total time spent is greater than 50% in coordination of care (as documented) at patient's floor/unit and/or counseling patient: Coding Level of Care Code 38564 IN/OBS CONSULT LVL 4,60M Diagnoses RAUL (acute kidney injury) N17.9 CKD (chronic kidney disease) N18.9 Anemia D64.9 Renal mass N28.89
[2025-09-17 06:40] LABS: Hematocrit (blood only) 25.6 % (42.0-52.0); Hemoglobin 8.2 g/dl (14.0-18.0); Immature Granulocytes # (auto) 0.01 K/uL (0.01-0.20); Immature Granulocytes % (auto) 0.1 %; Mean Corpuscular Hemoglobin 28.5 pg (25.0-34.0); Mean Corpuscular Volume 88.9 fL (80.0-100.0); Platelet Count 267 K/uL (130-400); RDW Standard Deviation 48.1 fL (36.4-46.3); Red Blood Count 2.88 M/uL (4.70-6.10); White Blood Count 6.93 K/ul (4.8-10.8)
[2025-09-17 06:55] LABS: Anion Gap 9.0 (3-11); Blood Urea Nitrogen 47.0 mg/dl (6-23); Calcium 9.3 mg/dl (8.6-10.3); Carbon Dioxide 26.0 mmol/L (21-32); Chloride 106.0 mmol/L (98-107); Creatinine Clr Calc Pharmacy 20.3 ml/min; Glucose 91.0 mg/dl (70-99(Fasting)); Iron 15.0 mcg/dl (35-175); Magnesium 2.2 mg/dl (1.7-2.4); Potassium 3.5 mmol/L (3.5-5.1); Sodium 141.0 mmol/L (136-145); Total Iron Binding Cap Calc 225.0 mcg/dl (250-450); Transferrin 161.0 mg/dl (200-360); Transferrin (FE) Percent Satur 7.0 % (20-50)
[2025-09-17 07:15] LABS: Ferritin 82.8 ng/ml (8-388)
[2025-09-17] MEDS: IRON SUCROSE 300 MG in SODIUM CHLORIDE 0.9% 250 ML IV ONE (09:00)
--- NOTE | 2025-09-17 10:18 | Nephrology Progress Note ---
Date of Service September 17, 2025 Assessment & Plan (1) RAUL (acute kidney injury): Plan: Non-oliguric. Creatinine 2.17-->2.35 mg/dL. Furosemide held. Tray remains in a negative fluid balance with reduced PO intake. Consider restarting diuretics at a reduced dose tomorrow. RAUL was hemodynamically mediated. Urine is acellular. Electrolytes are normal. Volume status acceptable. There is no indication for VIDEO GAME PRODUCER. Medications are appropriate for kidney function. Document I/O's. Repeat serum metabolic profile tomorrow AM. (2) CKD (chronic kidney disease): Plan: CKD III-IV A3. CKD attributed to smoking history, hypertension, and history of RAUL. Follows with Dr. Anderson. Volume status controlled. Furosemide 40 mg daily has been held this AM. Consider restarting tomorrow at a reduced dose. (3) Anemia: Plan: Post operative acute on chronic anemia. Iron deficiency noted. Venofer 300 mg IV provided today. A second dose of 300 mg IV is scheduled for tomorrow. Epogen 13691 units provided today. (4) Renal mass: Plan: Imaging reviewed. This lesion has been stable. Monitoring is provided through the [facility] urology clinic. Admission and Anticipated Discharge Date Admission Date: September 11, 2025 Subjective No acute events overnight. Tray was out of bed with PT this morning. Appetite remains reduced. No fevers or chills. Review of Systems Review of Systems: All systems reviewed & are unremarkable except as noted in HPI & below (limited due to dementia. Continues to deny pain or any complaints. ) Physical Exam Constitutional: + thin and + frail appearing; no acute d istress Eyes: + anicteric sclerae; no conjunctival abn ormality ENMT: Mouth: oral mucous membranes not dry Neck: normal visual inspection and trachea midline Respiratory: normal respiratory effort Auscultation: lungs clear to auscultation bilaterally Cardiovascular: Rate/Rhythm: regular rate and regular rhythm Heart Sounds: normal S1 and normal S2 Extremities: + pedal edema and + varicosities Musculoskeletal: Extremities: no cyanosis and no clubbing Skin: + turgor decreased; no jaundice Neurologic: Motor/Sensory: no tremor and no asterixis Results & Data Vital Signs (Past 12 Hours) Vital Signs Temp Pulse Pulse Resp BP Pulse Ox O2 Del Method 09/17/25 07:33 36.7 C 79 16 129/90 94 Room Air 09/17/25 02:40 36.8 C 74 18 154/83 H 91 Room Air 09/16/25 23:35 69 09/16/25 23:29 37.6 C H 101 H 20 138/79 94 Room Air Laboratory Results Laboratory Results - last 24 hr 09/17/25 05:57 WBC 6.93 RBC 2.88 L Hgb 8.2 L Hct 25.6 L MCV 88.9 MCH 28.5 MCHC 32.0 RDW Std Deviation 48.1 H RDW Coeff of Ruiz 15.1 H Plt Count 267 MPV 10.5 Immature Gran % (Auto) 0.1 Neut % (Auto) 65.8 Lymph % (Auto) 13.3 [place] % (Auto) 16.6 Eos % (Auto) 3.8 Baso % (Auto) 0.4 Neut # (Auto) 4.56 Lymph # (Auto) 0.92 L [place] # (Auto) 1.15 H Eos # (Auto) 0.26 Baso # (Auto) 0.03 Immature Gran # (Auto) 0.01 Sodium 141 Potassium 3.5 Chloride 106 Carbon Dioxide 26 Anion Gap 9 BUN 47 H Creatinine 2.32 H Est Cr Clr Drug Dosing 20.3 eGFR 27.37 BUN/Creatinine Ratio 20.3 H Glucose 91 Calcium 9.3 Magnesium 2.2 Iron 15 L TIBC 225 L Transferrin 161 L Transferrin % Sat 7 L Ferritin 82.8 C-Reactive Protein 14.66 H PG Care Time/CCT Total # of Minutes Spent Total Time Spent with Patient: Total time spent is greater than 50% in coordination of care (as documented) at patient's floor/unit and/or counseling patient: Coding Level of Care Code 64624 SUB INP/OBS CARE 2/35MIN Diagnoses RAUL (acute kidney injury) N17.9 CKD (chronic kidney disease) N18.9 Anemia D64.9 Renal mass N28.89
[2025-09-17] MEDS: EPOETIN ALFA 10,000 UNITS/ML VIAL SQ ONE (11:45)
--- NOTE | 2025-09-17 12:21 | Hospitalist Progress Note ---
Date of Service September 17, 2025 Assessment & Plan (1) Hip fracture due to osteoporosis: (2) (HFpEF) heart failure with preserved ejection fraction: (3) Chronic renal disease, stage 4, severely decreased glomerular filtration rate (GFR) between 15-29 mL/min/1.73 square meter: (4) HTN (hypertension): Plan This patient is an 80-year-old male with a history of HTN, venous insufficiency, chronic HFpEF, possibly Lewy body dementia, parkinsonism, depression, CKD stage III, amaurosis fugax of right eye, renal mass, history of low-grade prostate cancer, vitamin B12 deficiency, and current smoker, who is admitted with osteoporotic left hip fracture s/p a mechanical ground-level fall onto his left hip. # Osteoporotic left hip fracture/fall/vitamin D deficiency-mechanical fall in the setting of parkinsonism and ambulatory dysfunction. No other injuries except left hand abrasion. Vitamin D is low at 21 - Orthopedic surgery performed left hemiarthroplasty on 09/12 - Continue pain control with IV morphine, oxycodone, and Tylenol as needed - Activity as per orthopedic surgery - Wound care consulted for left hand abrasion-with daily dressing changes - Follow CBC, BMP ar stable - PT/OT consults placed, see assessments, participating - Start vitamin D3 1000 units p.o. once daily - hit or miss participation with PT and OT. Back to his baseline this morning. Edema slightly improved but persistent. Given his comorbidities inpatient rehab would be beneficial, dispo to be determined #RAUL #Acute on chronic CKD - monitor UOP, oral intake improving, volume overload state, continue lasix, daily monitoring - sykes out this AM, s/p fluid bolus, will add another 500 and maintenance, clincially dry on exam - see nephrology recommendations, appreciate Continue to monitor intake and output, Venna fear and E pigeon as noted in consult - restart Lasix 40 mg daily starting tomorrow morning # oropharyngeal dysphagia - new diagnosis, uncertain clinical significance but likely substantial. seeing results of video swallow. Large Zenker's diverticulum. No safe diet can be recommended at this time. Has been eating for a while no evidence of active aspiration however his inflammatory markers are increasing - see speech therapy notes for Zenker's diverticulum, ENT referred to either Hattie or Uziel for further management and clipping. No evident providers available here. CT scan was negative showing no signs of silent or prior aspiration. There was no evidence of this on his swallow study at this time either. Will continue with oral diet, likely to be referred as an outpatient for the Ying's #elevated inflammatory markers - no clear source. likely related to aspiration as above. See oropharyngeal dysphagia, continue to trend - stable to improving. CRP trending downward steadily. No clinical signs of emerging infection - recheck with a.m. labs #Borderline hypoxemia/current smoker-with pulse ox 90% in the ED and also given IV opioids. With elevated BNP was given Lasix in the ED thought to be from volume overload. Now weaned off supplemental O2 to room air. Could potentially have some element of COPD undiagnosed - Continue DuoNebs as needed - Counseled on smoking cessation-May need nicotine patch - will hold lasix for now. Gentle fluids as above. Monitor respiratory function #Possible acute on chronic HFpEF/venous insufficiency/uncontrolled HTN/history of amaurosis fugax-given IV Lasix as above for mildly low oxygen levels and elevated BNP. Blood pressures remain significantly elevated and required IV labetalol, IV hydralazine, and IV Lopressor on the night of admission. Now improved s/p hip surgery and hypertension may have been related to pain. Lower extremity edema is improved since admission but remains in his chronic - Continue home Lasix and increase home carvedilol to 12.5 mg p.o. twice daily - Continue Daily weights, strict I's and O's, Sykes catheter in place -Add hydralazine 10 mg IV every 8 hours as needed SBP greater than 190 - telemetry unremarkable, BP within range to moderately hypertensive #CKD stage III/history of renal mass/history of prostate cancer-renal function at or below baseline at 1.7 - Follow BMP in the a.m., stable creat but below baseline over last 48 hours - Renally dose medications and avoid nephrotoxic meds - Continue Sykes catheter for now but remove when able to get up with PT - nephrology as above #Chronic anemia/B12 deficiency-hemoglobin at baseline at 10-11, normocytic. Iron studies show mixed chronic disease and iron deficiency with transferrin saturation 9%, ferritin low normal at 36. With severely low vitamin B12 level at 155. Folate normal. Recent TSH normal - Start vitamin B12 1000 mcg IM daily x 3 doses followed by 1000 mcg p.o. daily - Follow CBC - Continue ferrous sulfate 325 mg p.o. once daily #Parkinsonism/possible Lewy body dementia/depression-follows with neurology - Continue carbidopa/levodopa 3 times daily - Not currently on medications for depression - requiring medications for agitation last night. Stable and back at baseline this morning. DVT prophylaxis-SCDs, aspirin 81 mg p.o. twice daily Disposition- BP stabilizing, watching renal function and UOP may need increased dose, likely to need rehab on DC Admission and Anticipated Discharge Date Admission Date: September 11, 2025 Subjective doing okay this morning. Back on a normal or normal schedule after his night with agitation and then the subsequent sedate of time medications. Back to his baseline this morning. Sitting of bed up eating a bowl of oatmeal. Uneventful. No choking noted or cough with oral intake. No new complaints or concerns per patient. No events per nursing staff. Normal bowel function. No problem with the limitations. Skips PT so not working with them as much right now but making good progress Physical Exam Physical Exam: Head: NC/AT; Eyes: PERRL, EOMI. No discharge or redness; Mouth and throat: MMM. Normal gums, mucosa, palate,. Good dentition. NECK: Supple, with no masses. CV: RRR, 2/6 MAMI at the left upper sternal border. LUNGS: CTAB, no w/r/c. ABD: Soft, NT/ND, NBS, no masses or organomegaly. : sykes in place SKIN: Warm, well perfused. No skin rashes or abnormal lesions. MSK: No deformities, Normal gait. EXT:1+ edema Results & Data Results & Data Vital Signs (Past 12 Hours) Vital Signs Temp Pulse Resp BP Pulse Ox O2 Del Method 09/17/25 11:01 36.9 C 63 16 107/67 93 Room Air 09/17/25 07:33 36.7 C 79 16 129/90 94 Room Air 09/17/25 02:40 36.8 C 74 18 154/83 H 91 Room Air Laboratory Results 09/17/25 05:57 WBC 6.93 RBC 2.88 L Hgb 8.2 L Hct 25.6 L MCV 88.9 MCH 28.5 MCHC 32.0 RDW Std Deviation 48.1 H RDW Coeff of Ruiz 15.1 H Plt Count 267 MPV 10.5 Immature Gran % (Auto) 0.1 Neut % (Auto) 65.8 Lymph % (Auto) 13.3 [place] % (Auto) 16.6 Eos % (Auto) 3.8 Baso % (Auto) 0.4 Neut # (Auto) 4.56 Lymph # (Auto) 0.92 L [place] # (Auto) 1.15 H Eos # (Auto) 0.26 Baso # (Auto) 0.03 Immature Gran # (Auto) 0.01 Sodium 141 Potassium 3.5 Chloride 106 Carbon Dioxide 26 Anion Gap 9 BUN 47 H Creatinine 2.32 H Est Cr Clr Drug Dosing 20.3 eGFR 27.37 BUN/Creatinine Ratio 20.3 H Glucose 91 Calcium 9.3 Magnesium 2.2 Iron 15 L TIBC 225 L Transferrin 161 L Transferrin % Sat 7 L Ferritin 82.8 C-Reactive Protein 14.66 H PG Care Time/CCT Total # of Minutes Spent Total Time Spent with Patient: Total time spent is greater than 50% in coordination of care (as documented) at patient's floor/unit and/or counseling patient: Coding Level of Care Code 24901 SUB INP/OBS CARE MIN Diagnoses Fracture of left hip due to osteoporosis, initial encounter M80.052A Encounter type: initial encounter Laterality: left (HFpEF) heart failure with preserved ejection fraction I50.30 Chronic renal disease, stage 4, severely decreased glomerular filtration rate (GFR) between 15-29 mL/min/1.73 square meter N18.4 HTN (hypertension) I10 (1) Hip fracture due to osteoporosis Encounter type: initial encounter Laterality: left Qualified Code(s): M80.052A - Age-related osteoporosis with current pathological fracture, left femur, initial encounter for fracture
[2025-09-17] MEDS ORDERED: MoRPHine SULFATE 4 MG/ML 1 ML CARP\\VIAL IV PRN (21:34)
[2025-09-18 06:19] LABS: Hematocrit (blood only) 25.3 % (42.0-52.0); Hemoglobin 8.1 g/dl (14.0-18.0); Immature Granulocytes # (auto) 0.03 K/uL (0.01-0.20); Immature Granulocytes % (auto) 0.4 %; Mean Corpuscular Hemoglobin 28.3 pg (25.0-34.0); Mean Corpuscular Volume 88.5 fL (80.0-100.0); Platelet Count 287 K/uL (130-400); RDW Standard Deviation 47.8 fL (36.4-46.3); Red Blood Count 2.86 M/uL (4.70-6.10); White Blood Count 7.21 K/ul (4.8-10.8)
[2025-09-18 06:42] LABS: Anion Gap 9.0 (3-11); Blood Urea Nitrogen 53.0 mg/dl (6-23); Calcium 9.2 mg/dl (8.6-10.3); Carbon Dioxide 25.0 mmol/L (21-32); Chloride 106.0 mmol/L (98-107); Creatinine Clr Calc Pharmacy 22.6 ml/min; Glucose 92.0 mg/dl (70-99(Fasting)); Magnesium 2.0 mg/dl (1.7-2.4); Potassium 3.5 mmol/L (3.5-5.1); Sodium 140.0 mmol/L (136-145)
[2025-09-18] MEDS: IRON SUCROSE 300 MG in SODIUM CHLORIDE 0.9% 250 ML IV ONE (08:44)
--- NOTE | 2025-09-18 09:10 | Nephrology Progress Note ---
Date of Service September 18, 2025 Assessment & Plan (1) RAUL (acute kidney injury): Plan: * RAUL likely hemodynamically mediated ATN. Benign urine sediment. Renal US w/ cortical atrophy but no obstruction. * Baseline Cr 1.7-2.2 * Patient is non-oliguric. Cr is now back to baseline. Electrolyte balance is acceptable * Patient remains clinically volume contracted. He is net 5.6 L volume negative since admission. Continue to hold diuretics. Monitor I&O, daily wt * Daily BMP (2) CKD (chronic kidney disease): Plan: * CKD stage G3-4/A3. Baseline Cr 1.7-2.2. CKD attributed to prior tobacco use, HTN, recurrent RAUL (3) Anemia: Plan: * Post operative acute on chronic anemia. Iron deficiency noted. * Venofer 300 mg IV daily x2 doses started 09/17/25 * Epogen 22336 units provided 09/17/25 (4) Renal mass: Plan: * 06/15/25 renal US: 1.7 cm solid lesion in midpole L kidney. This lesion has been stable. [place] [facility] [place] Admission and Anticipated Discharge Date Admission Date: September 11, 2025 Subjective Mr. Fenton was evaluated in his hospital room this morning. He denied fever, angina, dyspnea. IV iron was infusing and he denied any side effect Review of Systems Constitutional: no fever Eyes: no problem reported Ear, Nose, Mouth, Throat: no problem reported Respiratory: no cough and no dyspnea Cardiovascular: no chest pain Gastrointestinal: no abdominal pain, no nausea, no vomiting and no diarrhea/loose stools Physical Exam Constitutional: not in distress Eyes: PERRL, conjunctivae normal, anicteric sclerae ENMT: external ear and nose normal, oropharynx normal Neck: trachea midline, no thyromegaly Respiratory: normal respiratory effort, lungs clear to auscultation Cardiovascular: RRR, no murmur, no edema Gastrointestinal (Abdomen): normal bowel sounds, soft, nontender, no hepatosplenomegaly Skin: no rashes, warm and dry Neurologic: no focal motor deficits Results & Data Vital Signs (Past 12 Hours) Vital Signs Temp Pulse Pulse Resp BP Pulse Ox O2 Del Method 09/18/25 07:55 Room Air 09/18/25 07:27 91 H 09/18/25 07:20 37.1 C 74 18 150/86 H 92 Room Air 09/18/25 03:08 37.2 C 80 20 126/83 92 Room Air 09/17/25 22:58 37.3 C 85 18 153/80 H 93 Room Air 09/17/25 21:55 80 Laboratory Results Laboratory Results - last 24 hr 09/18/25 05:40 WBC 7.21 RBC 2.86 L Hgb 8.1 L Hct 25.3 L MCV 88.5 MCH 28.3 MCHC 32.0 RDW Std Deviation 47.8 H RDW Coeff of Ruiz 15.1 H Plt Count 287 MPV 10.3 Immature Gran % (Auto) 0.4 Neut % (Auto) 68.6 Lymph % (Auto) 12.3 Schley % (Auto) 14.4 Eos % (Auto) 3.9 Baso % (Auto) 0.4 Neut # (Auto) 4.94 Lymph # (Auto) 0.89 L Schley # (Auto) 1.04 H Eos # (Auto) 0.28 Baso # (Auto) 0.03 Immature Gran # (Auto) 0.03 Sodium 140 Potassium 3.5 Chloride 106 Carbon Dioxide 25 Anion Gap 9 BUN 53 H Creatinine 2.09 H Est Cr Clr Drug Dosing 22.6 eGFR 31.03 BUN/Creatinine Ratio 25.4 H Glucose 92 Calcium 9.2 Magnesium 2.0 C-Reactive Protein 12.12 H PG Care Time/CCT Total # of Minutes Spent Total Time Spent with Patient: 50 min provided reviewing progress notes, laboratory studies, chest CT and renal US reports, interviewing patient, performing physical exam, reviewing venofer/epogen orders, ordering am labs, updating medical record Coding Level of Care Code 14205 SUB INP/OBS CARE 3/50MIN Diagnoses RAUL (acute kidney injury) N17.9 CKD (chronic kidney disease) N18.9 Anemia D64.9 Renal mass N28.89
--- NOTE | 2025-09-18 13:03 | Hospitalist Progress Note ---
Date of Service September 18, 2025 Assessment & Plan (1) Hip fracture due to osteoporosis: (2) (HFpEF) heart failure with preserved ejection fraction: (3) Chronic renal disease, stage 4, severely decreased glomerular filtration rate (GFR) between 15-29 mL/min/1.73 square meter: (4) HTN (hypertension): Plan This patient is an 80-year-old male with a history of HTN, venous insufficiency, chronic HFpEF, possibly Lewy body dementia, parkinsonism, depression, CKD stage III, amaurosis fugax of right eye, renal mass, history of low-grade prostate cancer, vitamin B12 deficiency, and current smoker, who is admitted with osteoporotic left hip fracture s/p a mechanical ground-level fall onto his left hip. # Osteoporotic left hip fracture/fall/vitamin D deficiency-mechanical fall in the setting of parkinsonism and ambulatory dysfunction. No other injuries except left hand abrasion. Vitamin D is low at 21 - Orthopedic surgery performed left hemiarthroplasty on 09/12 - Continue pain control with IV morphine, oxycodone, and Tylenol as needed - Activity as per orthopedic surgery - Wound care consulted for left hand abrasion-with daily dressing changes - Follow CBC, BMP ar stable - PT/OT consults placed, see assessments, participating - Start vitamin D3 1000 units p.o. once daily - continue with PT and OT, stable from a orthopedic standpoint #RAUL #Acute on chronic CKD - monitor UOP, oral intake improving, volume overload state, continue lasix, daily monitoring - sykes out this AM, s/p fluid bolus, will add another 500 and maintenance, clincially dry on exam - see nephrology recommendations, appreciate Continue to monitor intake and output, Venna fear and Sandor fajardoon as noted in consult - see nephrology notes, hold diuretics. Fluid resuscitation depending on his oral intake. Continue to monitor daily function # oropharyngeal dysphagia - new diagnosis, uncertain clinical significance but likely substantial. seeing results of video swallow. Large Zenker's diverticulum. No safe diet can be recommended at this time. Has been eating for a while no evidence of active aspiration however his inflammatory markers are increasing - see speech therapy notes for Zenker's diverticulum, ENT referred to either Hattie or Uziel for further management and clipping. No evident providers available here. CT scan was negative showing no signs of silent or prior aspiration. There was no evidence of this on his swallow study at this time either. Will continue with oral diet, likely to be referred as an outpatient for the Zenker's #elevated inflammatory markers - no clear source. likely related to aspiration as above. See oropharyngeal dysphagia, continue to trend - stable to improving. CRP trending downward steadily. No clinical signs of emerging infection - stable, no evidence of infection/SIRS #Borderline hypoxemia/current smoker-with pulse ox 90% in the ED and also given IV opioids. With elevated BNP was given Lasix in the ED thought to be from volume overload. Now weaned off supplemental O2 to room air. Could potentially have some element of COPD undiagnosed - Continue DuoNebs as needed - Counseled on smoking cessation-May need nicotine patch - will hold lasix for now. Gentle fluids as above. Monitor respiratory function #Possible acute on chronic HFpEF/venous insufficiency/uncontrolled HTN/history of amaurosis fugax-given IV Lasix as above for mildly low oxygen levels and elevated BNP. Blood pressures remain significantly elevated and required IV labetalol, IV hydralazine, and IV Lopressor on the night of admission. Now improved s/p hip surgery and hypertension may have been related to pain. Lower extremity edema is improved since admission but remains in his chronic - Continue home Lasix and increase home carvedilol to 12.5 mg p.o. twice daily - Continue Daily weights, strict I's and O's, Sykes catheter in place -Add hydralazine 10 mg IV every 8 hours as needed SBP greater than 190 - telemetry unremarkable, BP within range to moderately hypertensive #CKD stage III/history of renal mass/history of prostate cancer-renal function at or below baseline at 1.7 - Follow BMP in the a.m., stable creat but below baseline over last 48 hours - Renally dose medications and avoid nephrotoxic meds - Continue Sykes catheter for now but remove when able to get up with PT - nephrology as above #Chronic anemia/B12 deficiency-hemoglobin at baseline at 10-11, normocytic. Iron studies show mixed chronic disease and iron deficiency with transferrin saturation 9%, ferritin low normal at 36. With severely low vitamin B12 level at 155. Folate normal. Recent TSH normal - Start vitamin B12 1000 mcg IM daily x 3 doses followed by 1000 mcg p.o. daily - Follow CBC - Continue ferrous sulfate 325 mg p.o. once daily #Parkinsonism/possible Lewy body dementia/depression-follows with neurology - Continue carbidopa/levodopa 3 times daily - Not currently on medications for depression - requiring medications for agitation last night. Stable and back at baseline this morning. DVT prophylaxis-SCDs, aspirin 81 mg p.o. twice daily Disposition- BP stabilizing, watching renal function and UOP may need increased dose, likely to need rehab on DC Admission and Anticipated Discharge Date Admission Date: September 11, 2025 Physical Exam Physical Exam: Head: NC/AT; Eyes: PERRL, EOMI. No discharge or redness; Mouth and throat: MMM. Normal gums, mucosa, palate,. Good dentition. NECK: Supple, with no masses. CV: RRR, 2/6 MAMI at the left upper sternal border. LUNGS: CTAB, no w/r/c. ABD: Soft, NT/ND, NBS, no masses or organomegaly. : sykes in place SKIN: Warm, well perfused. No skin rashes or abnormal lesions. MSK: No deformities, Normal gait. EXT:1+ edema Results & Data Results & Data Vital Signs (Past 12 Hours) Vital Signs Temp Pulse Pulse Resp BP Pulse Ox O2 Del Method 09/18/25 11:09 36.9 C 99 H 18 135/83 91 Room Air 09/18/25 07:55 Room Air 09/18/25 07:27 91 H 09/18/25 07:20 37.1 C 74 18 150/86 H 92 Room Air 09/18/25 03:08 37.2 C 80 20 126/83 92 Room Air PG Care Time/CCT Total # of Minutes Spent Total Time Spent with Patient: Total time spent is greater than 50% in coordination of care (as documented) at patient's floor/unit and/or counseling patient: Coding Level of Care Code 76509 SUB INP/OBS CARE 2/35MIN Diagnoses Fracture of left hip due to osteoporosis, initial encounter M80.052A Encounter type: initial encounter Laterality: left (HFpEF) heart failure with preserved ejection fraction I50.30 Chronic renal disease, stage 4, severely decreased glomerular filtration rate (GFR) between 15-29 mL/min/1.73 square meter N18.4 HTN (hypertension) I10 (1) Hip fracture due to osteoporosis Encounter type: initial encounter Laterality: left Qualified Code(s): M80.052A - Age-related osteoporosis with current pathological fracture, left femur, initial encounter for fracture
[2025-09-19] MEDS: ACETAMINOPHEN 500 MG TAB PO PRN (08:18)
[2025-09-19] MEDS: SODIUM CHLORIDE 0.9% 500 ML IV ONE (08:18)
[2025-09-19 08:25] LABS: Hematocrit (blood only) 23.8 % (42.0-52.0); Hemoglobin 7.8 g/dl (14.0-18.0); Mean Corpuscular Hemoglobin 29.3 pg (25.0-34.0); Mean Corpuscular Volume 89.5 fL (80.0-100.0); Platelet Count 276 K/uL (130-400); RDW Standard Deviation 47.4 fL (36.4-46.3); Red Blood Count 2.66 M/uL (4.70-6.10); White Blood Count 6.20 K/ul (4.8-10.8)
[2025-09-19 08:44] LABS: Anion Gap 5.0 (3-11); Blood Urea Nitrogen 51.0 mg/dl (6-23); Calcium 9.3 mg/dl (8.6-10.3); Carbon Dioxide 27.0 mmol/L (21-32); Chloride 108.0 mmol/L (98-107); Creatinine Clr Calc Pharmacy 22.0 ml/min; Glucose 87.0 mg/dl (70-99(Fasting)); Potassium 3.3 mmol/L (3.5-5.1); Sodium 140.0 mmol/L (136-145)
--- NOTE | 2025-09-19 08:50 | Nephrology Progress Note ---
Date of Service September 19, 2025 Assessment & Plan (1) RAUL (acute kidney injury): Plan: * RAUL likely hemodynamically mediated ATN. Benign urine sediment. Renal US w/ cortical atrophy but no obstruction. * Baseline Cr 1.7-2.2 * Patient is non-oliguric. Cr is now back to baseline. Electrolyte balance is acceptable * Patient remains clinically volume contracted. He is net 5.6 L volume negative since admission. Continue to hold diuretics. Monitor I&O, daily wt * Daily BMP * Will need nephrology follow up w/ Dr. Anderson following discharge from hospital (2) CKD (chronic kidney disease): Plan: * CKD stage G3-4/A3. Baseline Cr 1.7-2.2. CKD attributed to prior tobacco use, HTN, recurrent RAUL (3) Anemia: Plan: * Post operative acute on chronic anemia. Iron deficiency noted. * Completed 600 mg IV Venofer yesterday * Epogen 50183 units provided 09/17/25 * Will order iron studies, H&H for am (4) Renal mass: Plan: * 06/15/25 renal US: 1.7 cm solid lesion in midpole L kidney. This lesion has been stable. Monitoring is provided through the [facility] [place]. Admission and Anticipated Discharge Date Admission Date: September 11, 2025 Subjective Mr. Fenton was evaluated in his hospital room this morning. He was sitting up in a chair and denied fever, angina, dyspnea. Review of Systems Constitutional: no fever Eyes: no problem reported Ear, Nose, Mouth, Throat: no problem reported Respiratory: no cough and no dyspnea Cardiovascular: no chest pain Gastrointestinal: no abdominal pain, no nausea, no vomiting and no diarrhea/loose stools Physical Exam Constitutional: not in distress Eyes: PERRL, conjunctivae normal, anicteric sclerae ENMT: external ear and nose normal, oropharynx normal Neck: trachea midline, no thyromegaly Respiratory: normal respiratory effort, lungs clear to auscultation Cardiovascular: RRR, no murmur, no edema Gastrointestinal (Abdomen): normal bowel sounds, soft, nontender, no hepatosplenomegaly Skin: no rashes, warm and dry Neurologic: no focal motor deficits Results & Data Vital Signs (Past 12 Hours) Vital Signs Temp Pulse Pulse Resp BP Pulse Ox O2 Del Method 09/19/25 07:27 36.8 C 88 18 147/91 H 91 Room Air 09/19/25 07:23 Room Air 09/19/25 07:18 85 09/18/25 22:39 84 09/18/25 22:17 36.9 C 79 18 142/77 H 93 Room Air Laboratory Results Laboratory Results - last 24 hr 09/19/25 08:05 WBC 6.20 RBC 2.66 L Hgb 7.8 L Hct 23.8 L MCV 89.5 MCH 29.3 MCHC 32.8 RDW Std Deviation 47.4 H RDW Coeff of Ruiz 14.9 H Plt Count 276 MPV 9.8 Sodium 140 Potassium 3.3 L Chloride 108 H Carbon Dioxide 27 Anion Gap 5 BUN 51 H Creatinine 2.13 H Est Cr Clr Drug Dosing 22.0 eGFR 30.33 BUN/Creatinine Ratio 23.9 H Glucose 87 Calcium 9.3 PG Care Time/CCT Total # of Minutes Spent Total Time Spent with Patient: 50 min provided reviewing progress notes, laboratory studies, interviewing patient, performing physical exam, reviewing venofer/epogen orders, ordering am labs, updating medical record Coding Level of Care Code 96979 SUB INP/OBS CARE 3/50MIN Diagnoses RAUL (acute kidney injury) N17.9 CKD (chronic kidney disease) N18.9 Anemia D64.9 Renal mass N28.89
--- NOTE | 2025-09-19 11:33 | Hospitalist Progress Note ---
Date of Service September 19, 2025 Assessment & Plan (1) Hip fracture due to osteoporosis: (2) (HFpEF) heart failure with preserved ejection fraction: (3) Chronic renal disease, stage 4, severely decreased glomerular filtration rate (GFR) between 15-29 mL/min/1.73 square meter: (4) HTN (hypertension): Plan This patient is an 80-year-old male with a history of HTN, venous insufficiency, chronic HFpEF, possibly Lewy body dementia, parkinsonism, depression, CKD stage III, amaurosis fugax of right eye, renal mass, history of low-grade prostate cancer, vitamin B12 deficiency, and current smoker, who is admitted with osteoporotic left hip fracture s/p a mechanical ground-level fall onto his left hip. # Osteoporotic left hip fracture/fall/vitamin D deficiency-mechanical fall in the setting of parkinsonism and ambulatory dysfunction. No other injuries except left hand abrasion. Vitamin D is low at 21 - Orthopedic surgery performed left hemiarthroplasty on 09/12 - Continue pain control with IV morphine, oxycodone, and Tylenol as needed - Activity as per orthopedic surgery - Wound care consulted for left hand abrasion-with daily dressing changes - Follow CBC, BMP ar stable - PT/OT consults placed, see assessments, participating - Start vitamin D3 1000 units p.o. once daily - continue with PT and OT, stable from a orthopedic standpoint #RAUL #Acute on chronic CKD - monitor UOP, oral intake improving, volume overload state, continue lasix, daily monitoring - sykes out this AM, s/p fluid bolus, will add another 500 and maintenance, clincially dry on exam - see nephrology recommendations, appreciate Continue to monitor intake and output, Venna fear and Sandor fajardoon as noted in consult - see nephrology notes, hold diuretics. Fluid resuscitation depending on his oral intake. Continue to monitor daily function # oropharyngeal dysphagia - new diagnosis, uncertain clinical significance but likely substantial. seeing results of video swallow. Large Zenker's diverticulum. No safe diet can be recommended at this time. Has been eating for a while no evidence of active aspiration however his inflammatory markers are increasing - see speech therapy notes for Zenker's diverticulum, ENT referred to either Hattie or Uziel for further management and clipping. No evident providers available here. CT scan was negative showing no signs of silent or prior aspiration. There was no evidence of this on his swallow study at this time either. Will continue with oral diet, likely to be referred as an outpatient for the Zenker's - Close follow-up arranged by the outpatient clinic/PCP for management of Zenker's as there her note credentialed practitioners at this facility for the procedure. #elevated inflammatory markers - no clear source. likely related to aspiration as above. See oropharyngeal dysphagia, continue to trend - stable to improving. CRP trending downward steadily. No clinical signs of emerging infection - stable, no evidence of infection/SIRS - 2 days ago procalcitonin and CRP were transitional. Will recheck again tomorrow. Again no clinical evidence of infection/SIRS #Borderline hypoxemia/current smoker-with pulse ox 90% in the ED and also given IV opioids. With elevated BNP was given Lasix in the ED thought to be from volume overload. Now weaned off supplemental O2 to room air. Could potentially have some element of COPD undiagnosed - Continue DuoNebs as needed - Counseled on smoking cessation-May need nicotine patch - will hold lasix for now. Gentle fluids as above. Monitor respiratory function #Possible acute on chronic HFpEF/venous insufficiency/uncontrolled HTN/history of amaurosis fugax-given IV Lasix as above for mildly low oxygen levels and elevated BNP. Blood pressures remain significantly elevated and required IV labetalol, IV hydralazine, and IV Lopressor on the night of admission. Now improved s/p hip surgery and hypertension may have been related to pain. Lower extremity edema is improved since admission but remains in his chronic - Continue home Lasix and increase home carvedilol to 12.5 mg p.o. twice daily - Continue Daily weights, strict I's and O's, Sykes catheter in place -Add hydralazine 10 mg IV every 8 hours as needed SBP greater than 190 - telemetry unremarkable, BP within range to moderately hypertensive #CKD stage III/history of renal mass/history of prostate cancer-renal function at or below baseline at 1.7 - Follow BMP in the a.m., stable creat but below baseline over last 48 hours - Renally dose medications and avoid nephrotoxic meds - Continue Sykes catheter for now but remove when able to get up with PT - nephrology as above #Chronic anemia/B12 deficiency-hemoglobin at baseline at 10-11, normocytic. Iron studies show mixed chronic disease and iron deficiency with transferrin saturation 9%, ferritin low normal at 36. With severely low vitamin B12 level at 155. Folate normal. Recent TSH normal - Start vitamin B12 1000 mcg IM daily x 3 doses followed by 1000 mcg p.o. daily - Follow CBC - Continue ferrous sulfate 325 mg p.o. once daily #Parkinsonism/possible Lewy body dementia/depression-follows with neurology - Continue carbidopa/levodopa 3 times daily - Not currently on medications for depression - requiring medications for agitation last night. Stable and back at baseline this morning. DVT prophylaxis-SCDs, aspirin 81 mg p.o. twice daily Disposition- BP stabilizing, watching renal function and UOP may need increased dose, likely to need rehab on DC Admission and Anticipated Discharge Date Admission Date: September 11, 2025 Subjective Doing okay this morning. Some owning per staff but he remained redirect able. This morning he was awake. At his recent baseline. Interactive but somewhat distant. Breakfast was in front of him but he was not eating much. Otherwise has been participating with PT and OT. Renal function is stabilized. I suspect he is at his baseline. Appropriate for discharge in the coming days depending on placement availability. Physical Exam Physical Exam: Head: NC/AT; Eyes: PERRL, EOMI. No discharge or redness; Mouth and throat: MMM. Normal gums, mucosa, palate,. Good dentition. NECK: Supple, with no masses. CV: RRR, 2/6 MAMI at the left upper sternal border. LUNGS: CTAB, no w/r/c. ABD: Soft, NT/ND, NBS, no masses or organomegaly. : sykes in place SKIN: Warm, well perfused. No skin rashes or abnormal lesions. MSK: No deformities, Normal gait. EXT:1+ edema Results & Data Results & Data Vital Signs (Past 12 Hours) Vital Signs Temp Pulse Pulse Resp BP Pulse Ox O2 Del Method 09/19/25 10:56 36.5 C 71 24 110/64 97 Room Air 09/19/25 07:27 36.8 C 88 18 147/91 H 91 Room Air 09/19/25 07:23 Room Air 09/19/25 07:18 85 Laboratory Results 09/19/25 08:05 WBC 6.20 RBC 2.66 L Hgb 7.8 L Hct 23.8 L MCV 89.5 MCH 29.3 MCHC 32.8 RDW Std Deviation 47.4 H RDW Coeff of Ruiz 14.9 H Plt Count 276 MPV 9.8 Sodium 140 Potassium 3.3 L Chloride 108 H Carbon Dioxide 27 Anion Gap 5 BUN 51 H Creatinine 2.13 H Est Cr Clr Drug Dosing 22.0 eGFR 30.33 BUN/Creatinine Ratio 23.9 H Glucose 87 Calcium 9.3 PG Care Time/CCT Total # of Minutes Spent Total Time Spent with Patient: Total time spent is greater than 50% in coordination of care (as documented) at patient's floor/unit and/or counseling patient: Coding Level of Care Code 30024 SUB INP/OBS CARE MIN Diagnoses Fracture of left hip due to osteoporosis, initial encounter M80.052A Encounter type: initial encounter Laterality: left (HFpEF) heart failure with preserved ejection fraction I50.30 Chronic renal disease, stage 4, severely decreased glomerular filtration rate (GFR) between 15-29 mL/min/1.73 square meter N18.4 HTN (hypertension) I10 (1) Hip fracture due to osteoporosis Encounter type: initial encounter Laterality: left Qualified Code(s): M80.052A - Age-related osteoporosis with current pathological fracture, left femur, initial encounter for fracture
[2025-09-20 06:16] LABS: Hematocrit (blood only) 22.8 % (42.0-52.0); Hemoglobin 7.2 g/dl (14.0-18.0); Immature Granulocytes # (auto) 0.05 K/uL (0.01-0.20); Immature Granulocytes % (auto) 0.7 %; Mean Corpuscular Hemoglobin 28.6 pg (25.0-34.0); Mean Corpuscular Volume 90.5 fL (80.0-100.0); Platelet Count 275 K/uL (130-400); RDW Standard Deviation 48.9 fL (36.4-46.3); Red Blood Count 2.52 M/uL (4.70-6.10); White Blood Count 7.10 K/ul (4.8-10.8)
[2025-09-20 06:34] LABS: Anion Gap 7 (3-11); Blood Urea Nitrogen 54 mg/dl (6-23); Calcium 9.2 mg/dl (8.6-10.3); Carbon Dioxide 24 mmol/L (21-32); Chloride 109 mmol/L (98-107); Creatinine Clr Calc Pharmacy 21.0 ml/min; Glucose 101 mg/dl (70-99(Fasting)); Potassium 3.5 mmol/L (3.5-5.1); Sodium 140 mmol/L (136-145)
[2025-09-20 06:38] LABS: Alanine Aminotransferase < 3 U/L (7-52); Albumin Globulin Ratio 0.7 (0.9-2); Albumin Level 2.4 gm/dl (3.4-5.0); Alkaline Phosphatase 62 U/L (34-104); Bilirubin,Total 0.3 mg/dl (0.2-1.0); Globulin 3.5 gm/dl (2.5-4.0); Iron 18 mcg/dl (35-175); Magnesium 1.9 mg/dl (1.7-2.4); Total Iron Binding Cap Calc 218 mcg/dl (250-450); Total Protein 5.9 gm/dl (6.0-8.3); Transferrin 156 mg/dl (200-360); Transferrin (FE) Percent Satur 8 % (20-50)
[2025-09-20 06:43] LABS: RBC Morphology Unremarkable
--- NOTE | 2025-09-20 09:02 | Nephrology Progress Note ---
Date of Service September 20, 2025 Assessment & Plan (1) RAUL (acute kidney injury): Plan: * RAUL likely hemodynamically mediated ATN. Benign urine sediment. Renal US w/ cortical atrophy but no obstruction. * Baseline Cr 1.7-2.2 * Patient is non-oliguric. Cr is now back to baseline. Electrolyte balance is acceptable * Patient remains clinically volume contracted. He is net 6 L volume negative since admission. Continue to hold diuretics. Monitor I&O, daily wt * Daily BMP * Will need nephrology follow up w/ Dr. Anderson following discharge from hospital (2) CKD (chronic kidney disease): Plan: * CKD stage G3-4/A3. Baseline Cr 1.7-2.2. CKD attributed to prior tobacco use, HTN, recurrent RAUL (3) Anemia: Plan: * Post operative acute on chronic anemia. Iron deficiency noted. * 09/20/25 iron sat 8%, ferritin 83 * Will order venofer 300 mg IV daily x2 doses * Will provide epogen 10,000 units SQ x1 today * Monitor H&H (4) Renal mass: Plan: * 06/15/25 renal US: 1.7 cm solid lesion in midpole L kidney. This lesion has been stable. Monitoring is provided through the [facility] urology clinic. Admission and Anticipated Discharge Date Admission Date: September 11, 2025 Subjective Mr. Fenton was evaluated in his hospital room this morning. He was breathing comfortably flat in bed on RA. He denied fever, angina, dyspnea. Review of Systems Constitutional: no fever Eyes: no problem reported Ear, Nose, Mouth, Throat: no problem reported Respiratory: no cough and no dyspnea Cardiovascular: no chest pain Gastrointestinal: no abdominal pain, no nausea, no vomiting and no diarrhea/loose stools Physical Exam Constitutional: not in distress Eyes: PERRL, conjunctivae normal, anicteric sclerae ENMT: external ear and nose normal, oropharynx normal Neck: trachea midline, no thyromegaly Respiratory: normal respiratory effort, lungs clear to auscultation Cardiovascular: RRR, no murmur, no edema Gastrointestinal (Abdomen): normal bowel sounds, soft, nontender, no hepatosplenomegaly Skin: no rashes, warm and dry Neurologic: no focal motor deficits Results & Data Vital Signs (Past 12 Hours) Vital Signs Temp Pulse Pulse Resp BP BP Pulse Ox 09/20/25 07:17 36.7 C 68 20 157/81 H 92 09/20/25 04:41 36.9 C 88 18 155/92 H 95 09/20/25 00:16 95 H 09/19/25 23:29 36.8 C 77 16 164/85 H 96 O2 Del Method 09/20/25 07:17 Room Air 09/20/25 04:41 Room Air 09/20/25 00:16 09/19/25 23:29 Room Air Laboratory Results Laboratory Results - last 24 hr 09/20/25 05:37 WBC 7.10 RBC 2.52 L Hgb 7.2 L Hct 22.8 L MCV 90.5 MCH 28.6 MCHC 31.6 L RDW Std Deviation 48.9 H RDW Coeff of Ruiz 15.2 H Plt Count 275 MPV 10.6 Immature Gran % (Auto) 0.7 Neut % (Auto) 60.6 Lymph % (Auto) 15.2 [place] % (Auto) 16.6 Eos % (Auto) 6.6 Baso % (Auto) 0.3 Neut # (Auto) 4.30 Lymph # (Auto) 1.08 L [place] # (Auto) 1.18 H Eos # (Auto) 0.47 Baso # (Auto) 0.02 Immature Gran # (Auto) 0.05 RBC Morphology Unremarkable Sodium 140 Potassium 3.5 Chloride 109 H Carbon Dioxide 24 Anion Gap 7 BUN 54 H Creatinine 2.23 H Est Cr Clr Drug Dosing 21.0 eGFR 28.70 BUN/Creatinine Ratio 24.2 H Glucose 101 H Calcium 9.2 Magnesium 1.9 Iron 18 L TIBC 218 L Transferrin 156 L Transferrin % Sat 8 L Total Bilirubin 0.3 AST 17 ALT < 3 L Alkaline Phosphatase 62 C-Reactive Protein 8.22 H Total Protein 5.9 L Albumin 2.4 L Globulin 3.5 Albumin/Globulin Ratio 0.7 L Procalcitonin 0.27 PG Care Time/CCT Total # of Minutes Spent Total Time Spent with Patient: 50 min provided reviewing progress notes, laboratory studies, interviewing patient, performing physical exam, ordering venofer/epogen, ordering am labs, updating medical record Coding Level of Care Code 26250 SUB INP/OBS CARE 3/50MIN Diagnoses RAUL (acute kidney injury) N17.9 CKD (chronic kidney disease) N18.9 Anemia D64.9 Renal mass N28.89
[2025-09-20] MEDS: IRON SUCROSE 300 MG in SODIUM CHLORIDE 0.9% 250 ML IV SCH (09:39)
[2025-09-20] MEDS: EPOETIN ALFA 10,000 UNITS/ML VIAL SQ ONE (11:39)
--- NOTE | 2025-09-20 15:33 | Hospitalist Progress Note ---
Date of Service September 20, 2025 Assessment & Plan (1) Hip fracture due to osteoporosis: (2) (HFpEF) heart failure with preserved ejection fraction: (3) Chronic renal disease, stage 4, severely decreased glomerular filtration rate (GFR) between 15-29 mL/min/1.73 square meter: (4) HTN (hypertension): Plan This patient is an 80-year-old male with a history of HTN, venous insufficiency, chronic HFpEF, possibly Lewy body dementia, parkinsonism, depression, CKD stage III, amaurosis fugax of right eye, renal mass, history of low-grade prostate cancer, vitamin B12 deficiency, and current smoker, who is admitted with osteoporotic left hip fracture s/p a mechanical ground-level fall onto his left hip. #Osteoporotic left hip fracture/fall/vitamin D deficiency-mechanical fall in the setting of parkinsonism and ambulatory dysfunction. No other injuries except left hand abrasion. Vitamin D is low at 21. Orthopedic surgery performed left hemiarthroplasty on 09/12 and recommends weight-bear as tolerated, PT/OT, and follow-up in 2 weeks and will remove shasta/suture at that time - Continue pain control but discontinue IV morphine and 10 mg dose of oxycodone as not needed-continue acetaminophen as needed and oxycodone 5 mg p.o. every 4 hours as needed although not using this either in many days -Continue daily dressing changes to wounds on hand abrasions - Follow CBC in the a.m.-has had some acute blood loss anemia with Hgb 7.2 from baseline of 9-10 - Started vitamin D3 1000 units p.o. once daily #RAUL on CKD stage III/history of renal mass/history of prostate cancer- creatinine at or below baseline at 1.7 on admission and trended upward to 2.3. Appreciate nephrology consultation. Now stable to improved with creatinine 2.1. Diuretics have been held and was given gentle IV fluids - Follow BMP in the a.m. - Renally dose medications and avoid nephrotoxic meds - Discontinue Faustin catheter-replaced for urinary retention- do trial of void #oropharyngeal dysphagia/Zenker's diverticulum-seen by speech therapy after nurse noted osito aspiration of liquids at the bedside. Had video swallow which showed large Zenker's diverticulum but no aspiration. He is at risk for aspiration due to the Zenker's. - Recommend outpatient follow-up with cardiovascular surgical tech at tertiary care to discuss correction of the Zenker's diverticulum - Continue minced and moist diet #elevated inflammatory markers-unclear why this was checked but CRP was elevated now improving, procalcitonin negative. No source of infection - No need to continue trending #Borderline hypoxemia/current smoker-with pulse ox 90% in the ED and also given IV opioids. With elevated BNP was given Lasix in the ED thought to be from volume overload. Now weaned off supplemental O2 to room air. Could potentially have some element of COPD undiagnosed - Continue DuoNebs as needed - Counseled on smoking cessation #Possible acute on chronic HFpEF/venous insufficiency/uncontrolled HTN/history of amaurosis fugax-given IV Lasix on admission for mildly low oxygen levels and elevated BNP. Blood pressures were significantly elevated on admission and required IV labetalol, IV hydralazine, and IV Lopressor on the night of admission. Now improved s/p hip surgery and hypertension may have been related to pain. Also increased his carvedilol. Lower extremity edema is now completely resolved - Continue holding home Lasix -Continue increased dose of carvedilol 12.5 mg p.o. twice daily -Continue Daily weights, strict I's and O's - Continue hydralazine 10 mg IV every 8 hours as needed SBP greater than 190 - telemetry unremarkable-can downgrade off telemetry #Acute blood loss anemia on chronic anemia/B12 deficiency-hemoglobin at baseline at 10-11, normocytic. Iron studies show mixed chronic disease and iron deficiency with transferrin saturation 9%, ferritin low normal at 36. With severely low vitamin B12 level at 155. Folate normal. Recent TSH normal. Hgb trended down after surgery to 7.2 and stable secondary to blood loss from surgery and fracture - Started vitamin B12 1000 mcg IM daily x 3 doses followed by 1000 mcg p.o. daily - Follow CBC - Continue ferrous sulfate 325 mg p.o. once daily #Parkinsonism/possible Lewy body dementia/depression/delirium-follows with neurology. With some episodes of delirium in the hospital requiring intermittent as needed antipsychotics - Continue carbidopa/levodopa 3 times daily - Not currently on medications for depression - Start scheduled dose of Zyprexa 2.5 mg p.o. at bedtime and plan to only continue in the short-term, wean off as able to after discharge to rehab DVT prophylaxis-SCDs, aspirin 81 mg p.o. twice daily Disposition-downgrade to medical/surgical unit, improving, medically stable for discharge to rehab Admission and Anticipated Discharge Date Admission Date: September 11, 2025 Subjective Patient's reports he is feeling well, no chest pain or shortness of breath. Pain controlled. He apparently was getting agitated overnight and was given 1 dose of oral Seroquel. Telemetry with normal sinus rhythm with rates in the 80s with a 10-second run of PAT to the 150s for rates, resolved Physical Exam Constitutional: WD/WN, vitals as above Respiratory: normal respiratory effort, lungs clear to auscultation Cardiovascular: Rate/Rhythm: regular rate and regular rhythm Heart Sounds: no murmur Extremities: no edema Gastrointestinal (Abdomen): normal bowel sounds, soft, nontender, no hepatosplenomegaly Musculoskeletal: Extremities: + extremities abnormal to inspection (Left anterior hip with dressing in place C/D/I), no cyanosis and no clubbing Skin: no rashes, warm and dry (Left dorsal hand with abrasion with dressing in place) Neurologic: moves all extremities and awake; no focal motor deficits Speech / Cognition: normal speech, no expressive aphasia and normal cognition Motor/Sensory: + tremor (Resting tremor in hands) Psychiatric: A+Ox3, euthymic affect Genitourinary: + penis abnormality (Faustin catheter in p lace draining clear yellow urine) Lymphatic: no lymphedema Results & Data Results & Data Vital Signs (Past 12 Hours) Vital Signs Temp Pulse Pulse Resp BP BP Pulse Ox 09/20/25 14:03 36.5 C 76 16 136/76 94 09/20/25 11:17 36.6 C 59 L 21 113/61 94 09/20/25 09:26 09/20/25 07:17 36.7 C 68 20 157/81 H 92 09/20/25 04:41 36.9 C 88 18 155/92 H 95 O2 Del Method 09/20/25 14:03 Room Air 09/20/25 11:17 Room Air 09/20/25 09:26 Room Air 09/20/25 07:17 Room Air 09/20/25 04:41 Room Air Laboratory Results CBC, BMP, CRP, magnesium reviewed PG Care Time/CCT Total # of Minutes Spent Total Time Spent with Patient: Total time spent is greater than 50% in coordination of care (as documented) at patient's floor/unit and/or counseling patient: Coding Level of Care Code 95336 SUB INP/OBS CARE Diagnoses Fracture of left hip due to osteoporosis, initial encounter M80.052A Encounter type: initial encounter Laterality: left (HFpEF) heart failure with preserved ejection fraction I50.30 Chronic renal disease, stage 4, severely decreased glomerular filtration rate (GFR) between 15-29 mL/min/1.73 square meter N18.4 HTN (hypertension) I10 (1) Hip fracture due to osteoporosis Encounter type: initial encounter Laterality: left Qualified Code(s): M80.052A - Age-related osteoporosis with current pathological fracture, left femur, initial encounter for fracture
[2025-09-20] MEDS: OLANZAPINE 2.5 MG TAB PO SCH (20:12)
[2025-09-21 06:37] LABS: Hematocrit (blood only) 23.7 % (42.0-52.0); Hemoglobin 7.8 g/dl (14.0-18.0); Mean Corpuscular Hemoglobin 30.0 pg (25.0-34.0); Mean Corpuscular Volume 91.2 fL (80.0-100.0); Platelet Count 337 K/uL (130-400); RDW Standard Deviation 49.0 fL (36.4-46.3); Red Blood Count 2.60 M/uL (4.70-6.10); White Blood Count 7.94 K/ul (4.8-10.8)
[2025-09-21 06:53] LABS: Anion Gap 5.0 (3-11); Blood Urea Nitrogen 45.0 mg/dl (6-23); Calcium 9.4 mg/dl (8.6-10.3); Carbon Dioxide 26.0 mmol/L (21-32); Chloride 111.0 mmol/L (98-107); Creatinine Clr Calc Pharmacy 21.8 ml/min; Glucose 83.0 mg/dl (70-99(Fasting)); Potassium 3.9 mmol/L (3.5-5.1); Sodium 142.0 mmol/L (136-145)
[2025-09-21 08:07] VITALS: RESP 18; TEMP 98.2; O2SAT 95
--- NOTE | 2025-09-21 08:52 | Nephrology Progress Note ---
Date of Service September 21, 2025 Assessment & Plan (1) RAUL (acute kidney injury): Plan: * RAUL likely hemodynamically mediated ATN. Benign urine sediment. Renal US w/ cortical atrophy but no obstruction. * Baseline Cr 1.7-2.2 * Patient is non-oliguric. Cr is now back to baseline. Electrolyte balance is acceptable * Patient remains clinically volume contracted. He is net 6 L volume negative since admission. Continue to hold diuretics. Monitor I&O, daily wt * Daily BMP * Will need nephrology follow up w/ Dr. Anderson following discharge from hospital (2) CKD (chronic kidney disease): Plan: * CKD stage G3-4/A3. Baseline Cr 1.7-2.2. CKD attributed to prior tobacco use, HTN, recurrent RAUL (3) Anemia: Plan: * Post operative acute on chronic anemia. Iron deficiency noted. * 09/20/25 iron sat 8%, ferritin 83 * Venofer 300 mg IV x1 today, then stop * Epogen 10,000 units SQ x1 administered 09/20/25 * Monitor H&H (4) Renal mass: Plan: * 06/15/25 renal US: 1.7 cm solid lesion in midpole L kidney. This lesion has been stable. Monitoring is provided through [place] [facility] [place]. Admission and Anticipated Discharge Date Admission Date: September 11, 2025 Subjective Mr. Fenton was evaluated in his hospital room this morning. He was breathing comfortably flat in bed on RA. He denied fever, angina, dyspnea. Review of Systems Constitutional: no fever Eyes: no problem reported Ear, Nose, Mouth, Throat: no problem reported Respiratory: no cough and no dyspnea Cardiovascular: no chest pain Gastrointestinal: no abdominal pain, no nausea, no vomiting and no diarrhea/loose stools Physical Exam Constitutional: not in distress Eyes: PERRL, conjunctivae normal, anicteric sclerae ENMT: external ear and nose normal, oropharynx normal Neck: trachea midline, no thyromegaly Respiratory: normal respiratory effort, lungs clear to auscultation Cardiovascular: RRR, no murmur, no edema Gastrointestinal (Abdomen): normal bowel sounds, soft, nontender, no hepatosplenomegaly Skin: no rashes, warm and dry Neurologic: no focal motor deficits Results & Data Vital Signs (Past 12 Hours) Vital Signs Temp Pulse Resp BP Pulse Ox O2 Del Method 09/21/25 08:06 36.8 C 66 18 154/70 H 95 Room Air 09/20/25 22:40 36.9 C 68 16 161/84 H 96 Room Air Laboratory Results Laboratory Results - last 24 hr 09/21/25 06:04 WBC 7.94 RBC 2.60 L Hgb 7.8 L Hct 23.7 L MCV 91.2 MCH 30.0 MCHC 32.9 RDW Std Deviation 49.0 H RDW Coeff of Ruiz 15.2 H Plt Count 337 MPV 10.2 Absolute Nucleated RBC 0.02 Nucleated RBC % (auto) 0.3 Sodium 142 Potassium 3.9 Chloride 111 H Carbon Dioxide 26 Anion Gap 5 BUN 45 H Creatinine 2.17 H Est Cr Clr Drug Dosing 21.8 eGFR 29.66 BUN/Creatinine Ratio 20.7 H Glucose 83 Calcium 9.4 PG Care Time/CCT Total # of Minutes Spent Total Time Spent with Patient: 50 min provided to review progress notes, laboratory studies, interview patient, perform physical exam to assess volume status, review venofer/epogen management, order am labs, update medical record Coding Level of Care Code 12048 SUB INP/OBS CARE 3/50MIN Diagnoses RAUL (acute kidney injury) N17.9 CKD (chronic kidney disease) N18.9 Anemia D64.9 Renal mass N28.89
--- NOTE | 2025-09-21 12:35 | Discharge Summary ---
Discharge Summary Date of Service September 21, 2025 Principal Dx & Hospital Course #1 = Principal Diagnosis (1) Hip fracture due to osteoporosis: (2) (HFpEF) heart failure with preserved ejection fraction: (3) Chronic renal disease, stage 4, severely decreased glomerular filtration rate (GFR) between 15-29 mL/min/1.73 square meter: (4) HTN (hypertension): Plan This patient is an 80-year-old male with a history of HTN, venous insufficiency, chronic HFpEF, possibly Lewy body dementia, parkinsonism, depression, CKD stage III, amaurosis fugax of right eye, renal mass, history of low-grade prostate cancer, vitamin B12 deficiency, and current smoker, who is admitted with osteoporotic left hip fracture s/p a mechanical ground-level fall onto his left hip. #Osteoporotic left hip fracture/fall/vitamin D deficiency-mechanical fall in the setting of parkinsonism and ambulatory dysfunction. No other injuries except left hand abrasion. Vitamin D is low at 21. Orthopedic surgery performed left hemiarthroplasty on 09/12 and recommends weight-bear as tolerated, PT/OT, and follow-up in 2 weeks and will remove dressing and shasta at that time - Continue pain control with acetaminophen as needed -Continue daily dressing changes to wounds on hand abrasions - Started vitamin D3 1000 units p.o. once daily - Follow-up with PCP as an outpatient for further workup/treatment for osteoporosis #RAUL on CKD stage III/history of renal mass/history of prostate cancer- creatinine at or below baseline at 1.7 on admission and trended upward to 2.3. Appreciate nephrology consultation. Now stable to improved with creatinine 2.1. Diuretics have been held and was given gentle IV fluids. He has no further peripheral edema and nephrology recommend staying off diuretics for now. Faustin catheter removed and no longer retaining urine - Follow BMP in 1-2 weeks at the rehab with results to go to nephrology - Follow-up with nephrology as an outpatient - Renally dose medications and avoid nephrotoxic meds - Continue to hold Lasix and potassium on discharge until follow-up with nephrology #Oropharyngeal dysphagia/Zenker's diverticulum-seen by speech therapy after nurse noted osito aspiration of liquids at the bedside. Had video swallow which showed large Zenker's diverticulum but no aspiration. He is at risk for aspiration due to the Zenker's. - Recommend outpatient follow-up with surgical manager at tertiary care to discuss correction of the Zenker's diverticulum - Continue minced and moist diet, aspiration precautions #Borderline hypoxemia/current smoker-with pulse ox 90% in the ED and also given IV opioids. With elevated BNP was given Lasix in the ED thought to be from volume overload. Now weaned off supplemental O2 to room air. Could potentially have some element of COPD undiagnosed. He did not require any bronchodilators or treatment for COPD during admission - Counseled on smoking cessation - Continue nicotine patch but decrease to 7 mg daily on discharge - Consider PFTs as an outpatient #Possible acute on chronic HFpEF/venous insufficiency/uncontrolled HTN/history of amaurosis fugax-given IV Lasix on admission for mildly low oxygen levels and elevated BNP. Blood pressures were significantly elevated on admission and required IV labetalol, IV hydralazine, and IV Lopressor on the night of admission. Now BPs improved s/p hip surgery-hypertension may have been related to pain. His carvedilol dose was increased. Lower extremity edema is now completely resolved - Continue holding home Lasix until seen by nephrology in 2 weeks -Continue increased dose of carvedilol 12.5 mg p.o. twice daily -Follow BPs as an outpatient and may need further titration of antihypertensives - Continue aspirin for his of amaurosis fugax - Consider statin use given history of amaurosis fugax/TIA-defer to PCP as an outpatient #Acute blood loss anemia on chronic anemia/B12 deficiency-hemoglobin at baseline at 10-11, normocytic. Iron studies show mixed chronic disease and iron deficiency with transferrin saturation 9%, ferritin low normal at 36. With severely low vitamin B12 level at 155. Folate normal. Recent TSH normal. Hgb trended down after surgery to 7.2 secondary to blood loss from surgery and fracture. Hemoglobin improved to 7.8 on the day of discharge - He received vitamin B12 1000 mcg IM daily x 3 doses followed by 1000 mcg p.o. daily - He also received 900 mg of IV Venofer - Follow CBC in 1 to 2 weeks as an outpatient at rehab - Continue ferrous sulfate 325 mg p.o. once daily #Parkinsonism/possible Lewy body dementia/depression/delirium-follows with neurology. With some episodes of delirium in the hospital requiring intermittent as needed antipsychotics. Much improved with starting scheduled Zyprexa low-dose at nighttime-caution with this in the setting of parkinsonism - Continue carbidopa/levodopa 3 times daily - Not currently on medications for depression - Started scheduled dose of Zyprexa 2.5 mg p.o. at bedtime and plan to only continue in the short-term, wean off as able to after discharge to rehab- recommend 7 more days of this DVT prophylaxis-SCDs, aspirin 81 mg p.o. twice daily Disposition- medically stable for discharge to rehab Notes For Next Care Provider Follow-up CBC and BMP in 1-2 weeks Wean off Zyprexa in the short-term after 1 week Needs follow-up with GI surgery at [facility] for large Zenker's diverticulum Medication Changes From Visit See medication list Admission HPI Per Admitting Provider This patient is an 80-year-old male with a history of HTN, venous insufficiency, chronic HFpEF, possibly Lewy body dementia, parkinsonism, depression, CKD stage IV, amaurosis fugax of right eye, renal mass, history of low-grade prostate cancer, vitamin B12 deficiency, and current smoker, who presents to the ED with left sided hip pain after a ground-level fall onto his left hip. He denies passing out and did not hit his head. He does not know exactly why he fell but he does have Parkinson's and uses a walker to ambulate. He was found to have a left hip fracture of the femoral neck on x-ray. He denies pain anywhere else in the body but does have an abrasion on the left hand. He denies chest pains or shortness of breath, no heart palpitations, no lightheadedness or headache. He has chronic anemia and chronic kidney disease as well as an elevated BNP on labs. He was borderline hypoxemic and was placed on supplemental O2. His CXR showed mild atelectasis at the left midlung and he was given IV Lasix, IV Tylenol, and IV morphine. He will be admitted for left hip fracture. Discharge Exam Constitutional WD/WN, vitals as above Neck trachea midline, no thyromegaly Respiratory normal respiratory effort, lungs clear to auscultation Cardiovascular Rate/Rhythm: regular rate and regular rhythm Heart Sounds: no murmur Extremities: no edema Chest (Breasts) Chest: normal inspection of chest Gastrointestinal (Abdomen) normal bowel sounds, soft, nontender, no hepatosplenomegaly Musculoskeletal Extremities: + extremities abnormal to inspection (Left anterior hip with dressing in place C/D/I), no cyanosis and no clubbing Skin no rashes, warm and dry (Left dorsal hand with abrasion with dressing in place) Neurologic moves all extremities and awake; no focal motor deficits Speech / Cognition: normal speech, no expressive aphasia and normal cognition Motor/Sensory: + tremor (Resting tremor in hands) Psychiatric A+Ox3, euthymic affect Discharge Plan Discharge Items Patient Disposition: Transfer Halfway Fac Reason For Visit: LEFT HIP FRACTURE Discharge Diagnosis: Left hip fracture Acute blood loss anemia on chronic iron deficiency and B12 deficiency anemia Acute kidney injury on CKD stage IV Vitamin D deficiency Zenker's diverticulum Condition on Discharge: Good Activity: Per Instructions section Weightbearing: Full weightbearing Non-emergency contact: Primary Care Provider, Surgeon and Exhibit Display Representative Call non-emergency contact if: you have any medication questions, your symptoms worsen, your pain is not controlled, your temperature is above 101.5, your wound has increased redness and your wound has increased drainage Follow-up/Referrals: Jory Anderson MD [Physician] - (Follow-up within 2 weeks after discharge from the hospital) Tina Romo DO [Primary Care Provider] - (Follow-up within 1-2 weeks after discharge) Patel Echevarria DO [Physician] - Diet: Low Sodium (2gm) Diet Texture: Easy to Chew Diet Comment: Minced and moist, aspiration precautions Addtl Attending Provider Instructions: You were admitted with a hip fracture which was repaired by orthopedic surgery. Please follow their discharge instructions as below. You also had a mild acute kidney injury which resolved. Please follow-up with nephrology with repeat basic metabolic panel blood work in 1-2 weeks. You had some blood loss anemia in the setting of chronic anemia. You were given multiple doses of IV iron. You are also found to have a very low vitamin B12 level and this was replaced with intramuscular B12 injections as well as oral B12 pills. Please continue on iron pills and B12 pills and please have a complete blood count checked in 1-2 weeks as well. You are having some occasional agitation at nighttime and were started on a medication to help with this called Zyprexa. We should only take this for 1 more week and then it can be discontinued. Upon admission, your blood pressures were severely elevated and your carvedilol dose was increased to 12.5 mg twice a day. Your blood pressures are much improved but still remain somewhat elevated. Please continue to have this monitored by your doctor and you may need to have your blood pressure medications further increased in the future. You were noted to have some issues with swallowing and had a swallowing study which showed a large Zenker's diverticulum at the top of your esophagus. This does place you at risk for aspirating food and liquids. It is recommended that you eat a minced and moist diet and remain upright after eating. It is also recommended that you follow-up with a GI surgeon at a tertiary care facility in the near future to discuss surgical fixation of this diverticulum. It was a pleasure taking care of you! If you have any questions about your care before your hospital follow-up visit with your primary care provider, please call [phone] and ask to be transferred to the [facility] Medicine office. Sincerely, Sanjana Kat M.D. Addtl Management Aide Provider Instructions: ORTHOPEDIC INSTRUCTIONS Hip Hemiarthroplasty Activity and Therapy Recommendations: 1. You were shown a series of exercises in the hospital. Do these exercises three times each day if you are able. 2. Get up and walk several times each day if you are capable. Make sure you have assistance is needed. For the first four weeks, try not to stand or walk for more than one hour at a time. If you do stand or walk for more than one hour, you will not hurt anything, but your leg will likely swell. 3. As you feel comfortable, you may change from the walker or crutches to a cane and then to independent walking if you are able. Please be safe. Medications: 1. Narcotic You will likely be sent from the hospital with the narcotic pain medication that worked best throughout your stay. 2. Aspirin You will be required to take Aspirin 81mg twice a day for 6 weeks after surgery to prevent blood clots. 3. Other medications may be given for specific circumstances. If you have any questions, please call the office at [phone]. 4. Resume previous home medications unless otherwise instructed TEDs/Elastic Stockings: The white elastic stockings help limit swelling and prevent blood clots from forming in your legs. The more you wear them, the more they work. Wear them for 2 weeks. Dressing Care: Leave the [place] dressing in place for 7 days. After 7 days you may remove the dressing. Do not remove the [place] zip closure. If the incision is not draining then you may leave the [place] zip closure open to air. If there is a little bit of drainage or if the [place] zip closure is getting stuck on your clothing then cover the incision with a dry dressing. The [place] zip closure will be removed at your 2 week follow-up appointment. Showering: You may shower with the [place] dressing in place. Do not let the shower spray hit the dressing directly. Pat the [place] dressing dry. If the dressing becomes wet underneath, then simply remove the dressing. Keep the incision dry until you are 7 days out from the day of surgery. After 7 days you may remove the [place] dressing and shower with the [place] zip closure exposed. Let soapy water run over the [place] zip closure and pat them dry. Do not scrub or soak the incision. Diet: You may resume your previous diet. Things To Watch For: 1. Drainage from the incision site that occurs more than one week after your surgery. 2. Increased redness at the incision site. 3. Fever above 102 degrees Fahrenheit. 4. Unusual chest pain or shortness of breath. 5. Call [facility] at with any of the above problems Follow-Up Visit: Follow-up with Dr. Echevarria's office 2-3 weeks after your day of surgery. We will remove your shasta and answer any questions. If you have any additional questions or concerns, Dr Echevarria is usually in the office at the same time and will be available Please call the office to set up an appointment for time that works for you. Pending Studies at Discharge: No Stand-Alone Forms: My [facility] Skilled Items Patient informed of condition?: Yes DNR: Yes Discharge Level of Care: Skilled Communicable Disease: No Discharge Prognosis: Improving Lines: None Urinary Catheter: No Medications and DC Order Prescriptions: New carvedilol 12.5 mg Tablet 12.5 mg PO BIDM Qty: 60 0RF acetaminophen [Tylenol Extra Strength] 500 mg Tablet 1,000 mg PO Q8H PRN (Reason: pain) Qty: 60 0RF ferrous sulfate 325 mg (65 mg iron) Tablet,Delayed Release (Dr/Ec) 325 mg PO QAM Qty: 30 0RF nicotine 7 mg/24 hr Patch 24 Hour 1 patch transdermal QAM Qty: 14 0RF olanzapine 2.5 mg Tablet 2.5 mg PO HS 7 Days Qty: 7 0RF Lac-Hydrin Five 5 % Lotion 1 applic EXT DAILY Qty: 226 0RF Rx Instructions: Apply to dry skin on legs cholecalciferol (vitamin D3) 25 mcg (1,000 unit) Capsule 25 mcg PO QAM Qty: 30 0RF cyanocobalamin (vitamin B-12) 1,000 mcg capsule 1,000 mcg PO DAILY Qty: 30 0RF Continued carbidopa-levodopa 25-100 mg tablet 1 tab PO TID Qty: 90 5RF triamcinolone acetonide 0.1 % cream 1 applic topical BID Qty: 80 0RF Rx Instructions: thin layer twice daily onto legs, followed by thick moisturizer Changed aspirin [Adult Low Dose Aspirin] 81 mg tablet,delayed release (DR/EC) 81 mg PO BID Qty: 60 0RF Rx Instructions: X 4 weeks and then decrease back to once a day after that Held furosemide 40 mg tablet 40 mg PO QAM 30 Days Qty: 90 3RF Hold Instructions: Resume on 10/05/25. Hold until advised to restart by nephrology potassium chloride [Klor-Con] 20 mEq packet 40 meq PO DAILY Qty: 30 0RF Hold Instructions: Resume on 10/05/25. Hold until advised to restart by nephrology Discontinued carvedilol 6.25 mg tablet 6.25 mg PO BID Qty: 60 2RF Rx Instructions: must administer with a meal/food Discharge Orders: Discharge Order (Routine); Ordered 09/21/25 Ordered By: Sanjana Kat Admission Data Admit Date/Time: 09/11/25 16:00 Attending Provider: Sanjana Kat Admit Provider: Sanjana Kat Primary Care Provider: Tina Romo Other Providers: Patel Echevarria; [facility]; [facility]; Sanjana Kat; Yelitza Nieves; [facility] Stay Data Consultations 09/11/25 14:59 Consult Orthopedic Surgery Routine ED Decision to Admit Stat 09/11/25 18:39 Consult Anesthesiology Routine Consult Orthopedic Surgery Routine 09/16/25 14:17 Consult Nephrology Routine Procedures Performed Operation Date: 09/12/25 08:00 Actual Procedures p Left Anterior Cemented Hip Hemiarthroplasty(Left) - Patel Echevarria, Diagnostic Imagining Performed 09/12/25 FL hip LT 1V Routine 09/15/25 11:00 FL video swallow Routine 09/15/25 13:35 CT chest without contrast [CT chest diagnostic wo con] Urgent Pending Results Patient Have Any Pending Studies at Discharge: No Discharge Instructions Given to Patient (Per Discharging Provider) You were admitted with a hip fracture which was repaired by orthopedic surgery. Please follow their discharge instructions as below. You also had a mild acute kidney injury which resolved. Please follow-up with nephrology with repeat basic metabolic panel blood work in 1-2 weeks. You had some blood loss anemia in the setting of chronic anemia. You were given multiple doses of IV iron. You are also found to have a very low vitamin B12 l evel and this was replaced with intramuscular B12 injections as well as oral B12 pills. Please continue on iron pills and B12 pills and please have a complete blood count checked in 1-2 weeks as well. You are having some occasional agitation at nighttime and were started on a medication to help with this called Zyprexa. We should only take this for 1 more week and then it can be discontinued. Upon admission, your blood pressures were severely elevated and your carvedilol dose was increased to 12.5 mg twice a day. Your blood pressures are much improved but still remain somewhat elevated. Please continue to have this monitored by your doctor and you may need to have your blood pressure medications further increased in the future. You were noted to have some issues with swallowing and had a swallowing study which showed a large Zenker's diverticulum at the top of your esophagus. This does place you at risk for aspirating food and liquids. It is recommended that you eat a minced and moist diet and remain upright after eating. It is also recommended that you follow-up with a GI surgeon at a tertiary care facility in the near future to discuss surgical fixation of this diverticulum. It was a pleasure taking care of you! If you have any questions about your care before your hospital follow-up visit with your primary care provider, please call [phone] and ask to be transferred to the [facility] Medicine office. Sincerely, Sanjana Kat M.D. Total Time Total Time Spent Total Time Spent (In Minutes): 40 minutes Total Time Includes: Examination of the Patient, Discharge Planning and Medication Reconciliation Coding Level of Care Code 67456 INP/OBS DISCH >30 MIN Diagnoses Fracture of left hip due to osteoporosis, initial encounter M80.052A Encounter type: initial encounter Laterality: left (HFpEF) heart failure with preserved ejection fraction I50.30 Chronic renal disease, stage 4, severely decreased glomerular filtration rate (GFR) between 15-29 mL/min/1.73 square meter N18.4 HTN (hypertension) I10
[2025-09-21 12:59] VITALS: BP 136/76; PULSE 59
== END 2025-09-21 13:10 | DRG 521 ==
LOC: SUATTDRO → ED 13:36 → 4W 16:00 → SUATTDRO 16:00 → 4W 17:55 → 3N 09-20 13:35

== ENCOUNTER 2025-10-13 23:45 | Inpatient (IN) ==
[2025-10-14 00:34] LABS: Hematocrit (blood only) 29.8 % (42.0-52.0); Hemoglobin 9.9 g/dL (14.0-18.0); Mean Corpuscular Hemoglobin 30.4 pg (25.0-34.0); Mean Corpuscular Volume 91.4 fL (80.0-100.0); Platelet Count 309 K/uL (130-400); RDW Standard Deviation 54.4 fL (36.4-46.3); Red Blood Count 3.26 M/uL (4.70-6.10); White Blood Count 16.78 K/ul (4.8-10.8)
[2025-10-14 00:41] LABS: Alanine Aminotransferase 7.0 U/L (7-52); Albumin Globulin Ratio 0.8 (0.9-2); Albumin Level 2.9 gm/dl (3.4-5.0); Alkaline Phosphatase 88.0 U/L (34-104); Anion Gap 7.0 (3-11); Bilirubin,Total 0.6 mg/dl (0.2-1.0); Blood Urea Nitrogen 28.0 mg/dl (6-23); Calcium 9.2 mg/dl (8.6-10.3); Carbon Dioxide 25.0 mmol/L (21-32); Chloride 104.0 mmol/L (98-107); Creatinine Clr Calc Pharmacy 29.0 ml/min; Globulin 3.8 gm/dl (2.5-4.0); Glucose 86.0 mg/dl (70-99(Fasting)); Potassium 4.0 mmol/L (3.5-5.1); Sodium 136.0 mmol/L (136-145); Total Protein 6.7 gm/dl (6.0-8.3)
[2025-10-14 00:53] LABS: Appearance Urine Clear (Clear); Bacteria Urine Automated None Seen (None Seen); Cast Urine Automated 0-2 /lpf (0-2); Epithelial Cell Urine Auto 0-2 /hpf (0-2); Glucose Urine UA Negative (Negative); RBC Urine Automated 0-2 /hpf (0-2); WBC Urine Automated 0-5 /hpf (0-5)
[2025-10-14 00:56] LABS: Thyroid Stimulating Hormone 1.574 uIu/ml (0.300-4.500)
[2025-10-14 01:13] LABS: Immature Granulocytes # (auto) 0.08 K/uL (0.01-0.20); Immature Granulocytes % (auto) 0.5 %
--- NOTE | 2025-10-14 01:18 | XRay Report ---
EXAM: XR chest 1V portable CLINICAL HISTORY: Weakness. TECHNIQUE: An X-ray image of the chest was obtained in the AP projection. COMPARISON: Compared with CT dated 09/15/2025. FINDINGS: Pulmonary Parenchyma: An ill-defined area of faint opacity is seen in the right lower lung zone. Another smaller area of faint opacity is seen in the left lower zone. There is right basal atelectasis. There is obscuration of the right costophrenic angle; minimal effusion cannot be excluded. There is no evidence of left pleural effusion or pleural thickening. Heart and Mediastinum: The heart size and shape are normal. There is no mediastinal widening or masses. No hilar or mediastinal lymphadenopathy is identified. There is aortic atherosclerosis. Bony Thorax: The bony thorax appears intact without fractures or deformities. Soft Tissues: The soft tissues overlying the chest wall are unremarkable. IMPRESSION: 1. An ill-defined area of faint opacity is seen in the right lower lung zone. Another smaller area of faint opacity is seen in the left lower zone. This could represent lung infiltration; clinical correlation is recommended (new). 2. Obscuration of the right costophrenic angle; minimal effusion cannot be excluded. 3. Right basal atelectasis. Electronically signed by Jason Morales 10-14-2025 01:18 AM
[2025-10-14] MEDS: SODIUM CHLORIDE 0.9% 500 ML IV ONE (01:28)
[2025-10-14 01:35] LABS: Magnesium 1.7 mg/dl (1.7-2.4)
[2025-10-14 02:28] LABS: Chlamydia pneumoniae PCR Not Detected (NotDetected); Coronavirus 229E PCR Not Detected (NotDetected); Coronavirus CoV-2 (COVID19)PCR Not Detected (NotDetected); Coronavirus HKU1 PCR Not Detected (NotDetected); Coronavirus NL63 PCR Not Detected (NotDetected); Coronavirus OC43PCR Not Detected (NotDetected); Human Metapneumovirus PCR Not Detected (NotDetected); Parainfluenza Virus 1 PCR Not Detected (NotDetected); Parainfluenza Virus 2 PCR Not Detected (NotDetected); Parainfluenza Virus 3 PCR Not Detected (NotDetected); Parainfluenza Virus 4 PCR Not Detected (NotDetected); Respiratory Syncytial VirusPCR Not Detected (NotDetected); Rhinovirus/Enterovirus PCR Not Detected (NotDetected)
[2025-10-14] MEDS: CEFEPIME 2000MG 2,000 MG/20 ML SYR IV STA (02:47)
[2025-10-14] MEDS: ADENOSINE IV SOLN 3 MG/ML 2 ML VIAL IV ONE (02:58)
--- NOTE | 2025-10-14 03:29 | History & Physical Report ---
Date of Service October 14, 2025 Assessment & Plan (1) Aspiration pneumonia: (2) Unable to care for self: (3) Closed displaced fracture of left femoral neck: (4) Paroxysmal SVT (supraventricular tachycardia): Plan The patient is a 80-year-old male with a past medical history including left hip hemiarthroplasty on 09/12/2025, CKD, Parkinson's, hypertension, vitamin D deficiency, vitamin B12 deficiency, chronic anemia, and oropharyngeal dysphagia with Zenker's diverticulum. The patient was most recently admitted to [facility] from 09/11-09/21/2025 for a left hip fracture, and underwent a left hip hemiarthroplasty on 09/12/2025. During that admission he was also treated for chronic anemia with B12 IM for 3 days, and Venofer IV. Due to persistent weakness, patient was discharged to [facility], where he stayed from 09/21- 10/07/2025. He was then discharged to home with [facility] home health. The patient presents to the emergency department this evening with persistent and progressive generalized weakness, with dyspnea on exertion and shortness of breath. While on monitor in the emergency department, he had recurrent episodes of SVT, with rate up to 172, that resolved spontaneously. Troponin was 27.4, magnesium 1.7, creatinine stable at 1.92, hemoglobin improved to 9.9. Chest x- ray revealed a bibasilar pneumonia, likely due to aspiration, right greater than left. The patient was evaluated by speech therapy during last admission, and was found to have osito aspiration of liquids. Due to aspiration pneumonia, SVT, failure to thrive at home, patient was referred for evaluation and admission to the [facility] hospitalist service. Aspiration pneumonia, right significantly greater than left/oropharyngeal dysphagia- Patient was noted to have osito aspiration of liquids during last admission He was placed on pured diet, with honey thickened liquids MRSA swab Cefepime 2 g IV every 12 hours DuoNebs every 2 hours as needed Respiratory BioFire test negative Pro-Wally 0.52 Paroxysmal SVT/elevated troponin- Troponin 27.4, with follow-up pending, likely supply/demand mismatch due to increased heart rate EKG with SVT up to 172 When seen by the emergency department personnel, reportedly broke spontaneously, and recurred a few times as well. No history of SVT Unclear if he has been taking his carvedilol, and is given a dose 12.5 mg p.o. now Continue carvedilol 12.5 mg p.o. twice daily and aspirin 81 mg twice daily Give magnesium sulfate 1 g IV for magnesium of 1.7 The patient will be admitted to telemetry for serial cardiac enzymes, serial EKG's, cardiac rhythm monitoring and a 2-D echocardiogram with Dopplers. Give albumin 25 g IV for albumin of 2.9 Hold furosemide and potassium Most recent echocardiogram on 06/15/2025 with ejection fraction 50%, and mild aortic stenosis Serial laboratories Status post left hip hemiarthroplasty for left hip fracture on 09/12/2025- Consults PT/OT Acetaminophen 650 mg by mouth every 6 hours as needed for mild pain or fever Parkinsonism/possible Lewy body dementia/depression- Continue carbidopa-levodopa 3 times daily Has been discharged on Zyprexa 2.5 mg at bedtime at last admission, however, it is not on his current med list Tobacco use disorder- Continue NicoDerm patch Anemia of chronic disease- Continue B12, iron, Continue vitamin D3 Disposition/adult failure to thrive- He has been discharged to home with [facility] home health Will need to be determined whether patient is suitable for return to home, or whether he needs to be in a supervised setting. History of Present Illness Primary Care Provider: Tina Romo DO The patient is a 80-year-old male with a past medical history including left hip hemiarthroplasty on 09/12/2025, CKD, Parkinson's, hypertension, vitamin D deficiency, vitamin B12 deficiency, chronic anemia, and oropharyngeal dysphagia with Zenker's diverticulum. The patient was most recently admitted to [facility] from 09/11-09/21/2025 for a left hip fracture, and underwent a left hip hemiarthroplasty on 09/12/2025. During that admission he was also treated for chronic anemia with B12 IM for 3 days, and Venofer IV. Due to persistent weakness, patient was discharged to [facility], where he stayed from 09/21- 10/07/2025. He was then discharged to home with [facility] home health. The patient presents to the emergency department this evening with persistent and progressive generalized weakness, with dyspnea on exertion and shortness of breath. While on monitor in the emergency department, he had recurrent episodes of SVT, with rate up to 172, that resolved spontaneously. Troponin was 27.4, magnesium 1.7, creatinine stable at 1.92, hemoglobin improved to 9.9. Chest x- ray revealed a bibasilar pneumonia, likely due to aspiration, right greater than left. The patient was evaluated by speech therapy during last admission, and was found to have osito aspiration of liquids. Due to aspiration pneumonia, SVT, failure to thrive at home, [facility]. Allergies Allergy/AdvReac Type Severity Reaction Status Date / Time Sulfa (Sulfonamide Allergy Intermediate HIVES Verified 08/10/25 08:40 Antibiotics) Home Medications Medication Instructions Recorded Confirmed Type potassium chloride 20 mEq oral 40 meq PO DAILY #30 ea 06/18/25 10/14/25 Rx packet (Klor-Con) furosemide 40 mg tablet 40 mg PO QAM 1 month #90 tabs 07/15/25 10/14/25 Rx carbidopa 25 mg-levodopa 100 mg 1 tab PO TID #90 tabs 09/01/25 10/14/25 Rx tablet acetaminophen 500 mg tablet 1,000 mg (2 x 500 mg) PO Q8H PRN 09/21/25 10/14/25 Rx (Tylenol Extra Strength) pain #60 tabs ammonium lactate 5 % lotion 1 applic EXT DAILY #226 grams 09/21/25 10/14/25 Rx (Lac-Hydrin Five) aspirin 81 mg tablet,delayed 81 mg PO BID #60 tabs 09/21/25 10/14/25 Rx release (Adult Low Dose Aspirin) carvedilol 12.5 mg tablet 12.5 mg PO BIDM #60 tabs 09/21/25 10/14/25 Rx cholecalciferol (vitamin D3) 25 25 mcg PO QAM #30 caps 09/21/25 10/14/25 Rx mcg (1,000 unit) capsule cyanocobalamin (vitamin B-12) 1,000 mcg PO DAILY #30 caps 09/21/25 10/14/25 Rx 1,000 mcg capsule ferrous sulfate 325 mg (65 mg 325 mg PO QAM #30 tabs 09/21/25 10/14/25 Rx iron) tablet,delayed release nicotine 7 mg/24 hr daily 1 patch transdermal QAM #14 ea 09/21/25 10/14/25 Rx transdermal patch triamcinolone acetonide 0.1 % 1 applic topical BID #80 grams 10/11/25 10/14/25 Rx topical cream Past Med/Surg History Problem List (Updated 10/14/25 @ 05:08 by Clint Golden MD) Paroxysmal SVT (supraventricular tachycardia) Aspiration pneumonia Status post hip hemiarthroplasty CKD (chronic kidney disease) RAUL (acute kidney injury) Unable to care for self (Acute) Fall (Acute) Closed displaced fracture of left femoral neck (Acute) Hip fracture due to osteoporosis Blurred vision (Acute) Vision changes Elevated troponin (Acute) Acute CHF (Acute) Melena Weight loss Pneumonia due to COVID-19 virus Anemia COVID-19 Asymptomatic hypertensive urgency Fall (Acute) Elevated troponin (Acute) Abnormal ECG (Acute) Hypomagnesemia (Acute) Hypokalemia Stroke-like symptoms Dizziness (Acute) Medical History (Updated 10/14/25 @ 05:08 by Clint Golden MD) Aortic stenosis, mild Vitamin D deficiency B12 deficiency Tobacco use disorder Renal mass Transient cerebral ischemia HTN (hypertension) Crohn's disease History of prostate cancer History of colon cancer Urge incontinence Depression Peripheral neuropathy Adult failure to thrive Generalized weakness Altered mental status CKD (chronic kidney disease), stage III Parkinsonism Chronic renal disease, stage 4, severely decreased glomerular filtration rate (GFR) between 15-29 mL/min/1.73 square meter Bilateral leg edema Elevated brain natriuretic peptide (BNP) level Hypervolemia associated with renal insufficiency Acute diastolic CHF (congestive heart failure) Uncontrolled hypertension Stroke-like symptom Amaurosis fugax of right eye (HFpEF) heart failure with preserved ejection fraction Dementia Aphasia Tremor Surgical History (Updated 09/29/25 @ 14:55 by Roc Palafox PA-C) S/P partial colectomy S/P TURP Family History Daughter Cancer Ovarian cancer Other Hypertension Denies family history of Prostate cancer Myocardial infarction Breast cancer Colorectal cancer Social History Smoking Status: Unknown if ever smoked Tobacco Type: Cigarettes Age Started Using Tobacco: 76; packs per day: 0.50; Cigarettes Per Day: half pack per day; Second Hand Exposure: No; Do You Dip or Chew Tobacco: No; Hx Alcohol Use: No Hx Substance Use: No Preferred Language: Micronesian Communication Ability: Effective Visual Impairment: No Limitations Hearing Ability: Normal Incident Manager Required: No Beliefs That Will Affect Care: None marital status: Current Living Situation: Spouse Current Living Situation Comment: lives w/ in house current occupational status: retired Feels Safe at Home: Yes Childhood Exposure to Second-Hand Smoke: Yes Diet: regular caffeine: Yes (1 coffee 1 pepsi daily) Dental Care, Regularly: No Physical Activity Frequency: Does not Exercise Seatbelt Use: always Sunscreen Use: No Do you think of yourself as: straight/heterosexual Gender Identity: Male Assistive Devices: Cane and Walker Review of Systems Review of Systems: The patient denies chest pain, palpitations, cough, lower extremity swelling, sore throat, fevers, chills, sweats, nausea, vomiting, diarrhea , constipation, abdominal pain, pelvic pain, blood in urine or stool, dysuria, urinary frequency or urgency, lightheadedness, dizziness, headache, memory loss, loss of consciousness, rash, abnormal bruising or bleeding, focal weakness, numbness or tingling in arms or legs, generalized arthralgias or myalgias, back or neck pain, or night sweats. The review of systems is otherwise negative other than for that already noted above, and at least 10 systems have been reviewed. Physical Exam Physical Exam: The patient is awake, alert, appears mildly malnourished, normocephalic and atraumatic, lying in bed and in no acute distress. HEENT--PERRL, EOMI, mucous membranes and oropharynx mildly dry. Neck--supple. No JVD. No bruits. Thyroid normal, trachea midline, no adenopathy. Heart--normal S1 and S2. No murmurs, rubs or gallops. Lungs--right greater than left coarse breath sounds with wheezes. No res piratory distress, no accessory muscle use. Abdomen--normal bowel sounds and soft. Nontender. Nondistended, no hernias or masses, no organomegaly. Extremities--no cyanosis or clubbing. 1+ bilateral pretibial pitting edema. There are good distal pulses b/l. Dermatologic--normal skin turgor, normal color, no abnormal lymph nodes, no rash. Neurologic--cranial nerves II through XII grossly intact. Rheumatologic--limited exam due to generalized weakness Psychiatric--normal affect. Results & Data Results & Data Vital Signs (Past 12 Hours) Vital Signs Temp Pulse Resp BP Pulse Ox O2 Del Method O2 Flow Rate 10/14/25 03:00 112 H 148/90 H 98 10/14/25 02:51 109 H 96 10/14/25 02:50 141/100 H 10/14/25 02:48 110 H 10/14/25 02:45 106 H 139/84 10/14/25 02:42 109 H 10/14/25 02:40 123/81 10/14/25 02:39 116 H 10/14/25 02:35 133/86 10/14/25 02:33 109 H 10/14/25 02:30 150/101 H 10/14/25 02:30 114 H 17 150/101 H 10/14/25 02:25 128/77 10/14/25 02:24 110 H 20 10/14/25 02:21 107 H 15 10/14/25 02:20 125/84 10/14/25 02:18 107 H 27 H 10/14/25 02:15 108 H 0 L 130/82 10/14/25 02:12 166 H 5 L 10/14/25 02:10 124/80 10/14/25 02:09 108 H 0 L 10/14/25 02:05 127/87 10/14/25 02:03 105 H 0 L 97 10/14/25 02:00 100 H 13 145/95 H 98 10/14/25 01:55 100/71 10/14/25 01:54 130 H 0 L 97 10/14/25 01:51 174 H 1 L 97 10/14/25 01:50 148/89 H 10/14/25 01:34 140/103 H 10/14/25 01:33 173 H 18 97 10/14/25 01:30 110 H 12 158/122 H 97 10/14/25 01:28 118/85 10/14/25 01:27 108 H 8 L 97 10/14/25 01:26 97 Nasal Cannula 2 10/14/25 01:25 140/90 10/14/25 01:24 172 H 0 L 97 10/14/25 01:21 108 H 0 L 98 10/14/25 01:20 149/89 H 10/14/25 01:18 107 H 26 H 97 10/14/25 01:15 130/93 10/14/25 01:15 98 10/14/25 01:12 96 10/14/25 01:05 157/90 H 10/14/25 01:03 172 H 5 L 96 10/14/25 01:00 108 H 14 96 10/14/25 00:59 99/62 L 10/14/25 00:57 113 H 97 10/14/25 00:55 89/67 L 10/14/25 00:54 111 H 22 96 10/14/25 00:51 168 H 32 H 121/82 92 10/14/25 00:42 115 H 23 10/14/25 00:30 115 H 24 154/101 H 10/14/25 00:21 109 H 28 H 91 10/14/25 00:20 193 H 10/14/25 00:12 115 H 28 H 92 10/14/25 00:12 93 Room Air 10/14/25 00:03 121 H 29 H 92 10/14/25 00:03 116 H 10/14/25 00:00 163/107 H 10/13/25 23:53 37.7 C H 105 H 22 165/105 H 94 Room Air Laboratory Results Laboratory Results WBC 16.78 K/ul (4.8-10.8) H 10/14/25 00:01 RBC 3.26 M/uL (4.70-6.10) L 10/14/25 00:01 Hgb 9.9 g/dL (14.0-18.0) L 10/14/25 00:01 POC Hgb 9.9 g/dl (14.0-18.0) L 10/14/25 01:17 Hct 29.8 % (42.0-52.0) L 10/14/25 00:01 POC Hct 29 % (42-52) L 10/14/25 01:17 MCV 91.4 fL (80.0-100.0) 10/14/25 00:01 MCH 30.4 pg (25.0-34.0) 10/14/25 00:01 MCHC 33.2 g/dL (32.0-36.0) 10/14/25 00:01 RDW Std Deviation 54.4 fL (36.4-46.3) H 10/14/25 00:01 RDW Coeff of Ruiz 17.0 % (11.5-14.5) H 10/14/25 00:01 Plt Count 309 K/uL (130-400) 10/14/25 00:01 MPV 10.5 fL (9.4-12.4) 10/14/25 00:01 Immature Gran % (Auto) 0.5 % 10/14/25 00:01 Neut % (Auto) 91.8 % 10/14/25 00:01 Lymph % (Auto) 1.4 % 10/14/25 00:01 [place] % (Auto) 6.1 % 10/14/25 00:01 Eos % (Auto) 0.1 % 10/14/25 00:01 Baso % (Auto) 0.1 % 10/14/25 00:01 Neut # (Auto) 15.39 K/uL (1.40-6.50) H 10/14/25 00:01 Lymph # (Auto) 0.24 K/uL (1.20-3.40) L 10/14/25 00:01 [place] # (Auto) 1.03 K/uL (0.11-0.59) H 10/14/25 00:01 Eos # (Auto) 0.02 K/uL (0.00-0.50) 10/14/25 00:01 Baso # (Auto) 0.02 K/uL (0.00-0.20) 10/14/25 00:01 Immature Gran # (Auto) 0.08 K/uL (0.01-0.20) 10/14/25 00:01 POC Sodium 138 mmol/L (135-144) 10/14/25 01:17 Sodium 136 mmol/L (136-145) 10/14/25 00:01 POC Potassium 3.8 mmol/L (3.3-5.0) 10/14/25 01:17 Potassium 4.0 mmol/L (3.5-5.1) 10/14/25 00:01 POC Chloride 104 mmol/L (101-112) 10/14/25 01:17 Chloride 104 mmol/L (98-107) 10/14/25 00:01 Carbon Dioxide 25 mmol/L (21-32) 10/14/25 00:01 POC Total CO2 23 mmol/L (24-31) L 10/14/25 01:17 Anion Gap 7 (3-11) 10/14/25 00:01 POC Anion Gap 16.0 mmol/L (16-25) 10/14/25 01:17 POC BUN 25 mg/dl (7-18) H 10/14/25 01:17 BUN 28 mg/dl (6-23) H 10/14/25 00:01 Creatinine 1.92 mg/dl (0.6-1.4) H 10/14/25 00:01 POC Creatinine 2.1 mg/dl (0.6-1.3) H 10/14/25 01:17 Est Cr Clr Drug Dosing 29.0 ml/min 10/14/25 00:01 eGFR 34.35 10/14/25 00:01 BUN/Creatinine Ratio 14.6 (10-20) 10/14/25 00:01 Glucose 86 mg/dl (70-99(Fasting)) 10/14/25 00:01 POC Glucose (other) 81 mg/dl (70-99) 10/14/25 01:17 Lactate 1.2 mmol/L (0.4-2.0) 10/14/25 01:03 Calcium 9.2 mg/dl (8.6-10.3) 10/14/25 00:01 POC Ioniz Calcium [place] 1.23 mmol/l (1.12-1.32) 10/14/25 01:17 Magnesium 1.7 mg/dl (1.7-2.4) 10/14/25 01:03 Total Bilirubin 0.6 mg/dl (0.2-1.0) 10/14/25 00:01 AST 9 U/L (13-39) L 10/14/25 00:01 ALT 7 U/L (7-52) 10/14/25 00:01 Alkaline Phosphatase 88 U/L (34-104) 10/14/25 00:01 Troponin I High Sens 29.9 pg/ml (0-20) H 10/14/25 02:44 Total Protein 6.7 gm/dl (6.0-8.3) 10/14/25 00:01 Albumin 2.9 gm/dl (3.4-5.0) L 10/14/25 00:01 Globulin 3.8 gm/dl (2.5-4.0) 10/14/25 00:01 Albumin/Globulin Ratio 0.8 (0.9-2) L 10/14/25 00:01 Procalcitonin 0.52 ng/ml (0-0.5) H 10/14/25 00:01 TSH 1.574 uIu/ml (0.300-4.500) 10/14/25 00:01 Urine Color Yellow 10/14/25 00:07 Urine Appearance Clear (Clear) 10/14/25 00:07 Urine pH 8.0 (4.5-7.5) H 10/14/25 00:07 Ur Specific [place] 1.009 (1.000-1.030) 10/14/25 00:07 Urine Protein 1+ (Negative) H 10/14/25 00:07 Urine Glucose (UA) Negative (Negative) 10/14/25 00:07 Urine Ketones Negative (Negative) 10/14/25 00:07 Urine Blood Negative (Negative) 10/14/25 00:07 Urine Nitrite Negative (Negative) 10/14/25 00:07 Urine Bilirubin Negative (Negative) 10/14/25 00:07 Urine Urobilinogen Negative (Negative) 10/14/25 00:07 Ur Leukocyte Esterase Negative (Negative) 10/14/25 00:07 Urine WBC (Auto) 0-5 /hpf (0-5) 10/14/25 00:07 Urine RBC (Auto) 0-2 /hpf (0-2) 10/14/25 00:07 U Hyaline Cast (Auto) 0-2 /lpf (0-2) 10/14/25 00:07 U Epithel Cells (Auto) 0-2 /hpf (0-2) 10/14/25 00:07 Urine Bacteria (Auto) None Seen (None Seen) 10/14/25 00:07 Urine Comment 10/14/25 00:07 Nasal Screen MRSA (PCR) Negative (Negative) 10/14/25 02:51 Adenovirus (PCR) Not Detected (NotDetected) 10/14/25 01:00 B. pertussis DNA (PCR) Not Detected (NotDetected) 10/14/25 01:00 B.parapertussis DNA PCR Not Detected (NotDetected) 10/14/25 01:00 C. pneumoniae DNA (PCR) Not Detected (NotDetected) 10/14/25 01:00 Coronavirus OC43 (PCR) Not Detected (NotDetected) 10/14/25 01:00 Coronavirus HKU1 (PCR) Not Detected (NotDetected) 10/14/25 01:00 Coronavirus 229E (PCR) Not Detected (NotDetected) 10/14/25 01:00 SARS-CoV-2 (PCR) Not Detected (NotDetected) 10/14/25 01:00 Coronavirus NL63 (PCR) Not Detected (NotDetected) 10/14/25 01:00 Human Metapneumovir PCR Not Detected (NotDetected) 10/14/25 01:00 Influenza Type A (PCR) Not Detected (NotDetected) 10/14/25 01:00 Influenza Type B (PCR) Not Detected (NotDetected) 10/14/25 01:00 M. pneumoniae (PCR) Not Detected (NotDetected) 10/14/25 01:00 Parainfluenza 1 (PCR) Not Detected (NotDetected) 10/14/25 01:00 Parainfluenza 2 (PCR) Not Detected (NotDetected) 10/14/25 01:00 Parainfluenza 3 (PCR) Not Detected (NotDetected) 10/14/25 01:00 Parainfluenza 4 (PCR) Not Detected (NotDetected) 10/14/25 01:00 RSV (PCR) Not Detected (NotDetected) 10/14/25 01:00 Entero/Rhino (PCR) Not Detected (NotDetected) 10/14/25 01:00 Impressions Chest X-Ray 10/14/25 00:11 EXAM: XR chest 1V portable CLINICAL HISTORY: Weakness. TECHNIQUE: An X-ray image of the chest was obtained in the AP projection. COMPARISON: Compared with CT dated 09/15/2025. FINDINGS: Pulmonary Parenchyma: An ill-defined area of faint opacity is seen in the right lower lung zone. Another smaller area of faint opacity is seen in the left lower zone. There is right basal atelectasis. There is obscuration of the right costophrenic angle; minimal effusion cannot be excluded. There is no evidence of left pleural effusion or pleural thickening. Heart and Mediastinum: The heart size and shape are normal. There is no mediastinal widening or masses. No hilar or mediastinal lymphadenopathy is identified. There is aortic atherosclerosis. Bony Thorax: The bony thorax appears intact without fractures or deformities. Soft Tissues: The soft tissues overlying the chest wall are unremarkable. IMPRESSION: 1. An ill-defined area of faint opacity is seen in the right lower lung zone. Another smaller area of faint opacity is seen in the left lower zone. This could represent lung infiltration; clinical correlation is recommended (new). 2. Obscuration of the right costophrenic angle; minimal effusion cannot be excluded. 3. Right basal atelectasis. Electronically signed by Jason Morales 10-14-2025 01:18 AM Code Status & VTE Plan Code Status DNR/DNI VTE Prophylaxis Plan VTE Prophylaxis will be ordered: Yes PG Care Time/CCT Total # of Minutes Spent Total Time Spent with Patient: Total time spent is greater than 50% in coordination of care (as documented) at patient's floor/unit and/or counseling patient: Coding Level of Care Code 99720 INT INP/OBS CARE 3/75MIN Diagnoses Aspiration pneumonia J69.0 Aspiration pneumonia type: due to regurgitated food Laterality: right Unable to care for self Z78.9 Closed displaced fracture of left femoral neck S72.002A Paroxysmal SVT (supraventricular tachycardia) I47.10 (1) Aspiration pneumonia Aspiration pneumonia type: due to regurgitated food Laterality: right
[2025-10-14] MEDS: ALBUMIN 25% 25 GM/100 ML VIAL IV STA (03:43)
[2025-10-14] MEDS: MAGNESIUM SULFATE / D5W 1 GM/100 ML BAG IV STA (03:43)
--- NOTE | 2025-10-14 03:50 | Emergency Department Note ---
Impression & Plan Paroxysmal supraventricular tachycardia, Bilateral pneumonia, Acute hypotension, Hypoxia admit to the [facility] ED Provider Note NAME: MAGALY SMITH AGE: 80 SEX: Male INFORMANT: Patient And EMS ED PROVIDER(S): eVnus Moreno DO CHIEF COMPLAINT: weakness and SVT PLAN: Disposition: admit to the [facility] MEDICAL DECISION MAKING: this is an 80-year-old male patient who presents to the emergency department from home. He has a history of dementia. He suffered a ground-level fall earlier this afternoon and EMS was called to the home. They assisted him up off the floor but he refused to be transported to the hospital. He had increasing weakness throughout the evening and developed a fever. They were called back to the home and was noted to have increased shortness of breath and was transported here to the hospital. The patient was noted to be hypoxic. Upon presentation to the ER, the patient was in SVT with heart rates in the 140s. Patient has significant lower extremity edema up to the mid thigh. He was also initially hypoxic. He was given a 500 cc bolus of saline which brought his blood pressure. Laboratory studies revealed a white blood cell count of 16.7. Lactate was normal but procalcitonin was slightly elevated at 0.52. Hemoglobin was stable at 9.9. BioFire testing was negative. Chest x-ray showed evidence of bilateral pneumonia. Patient was intermittently in SVT. Troponin was elevated. Patient was given a dose of IV cefepime after blood cultures were obtained. Urinalysis was negative. Troponin was elevated at 27.4. [facility] the patient for further inpatient care. patient had episodes of hypoxia and hypotension. I initially was deciding whether or not to perform electrical cardioversion on this patient but the episodes of SVT were paroxysmal. patient's hypotension responded to a small bolus of crystalloid. His vital sign derangement was multifactorial. there is concern that the patient is septic but could not receive a fluid bolus of 30 mL/kg as he has 4+ pitting edema in his legs and evidence of some fluid overload in his lungs. Care/management discussed with: manager tax and [facility] Triage Nursing notes: reviewed and agree With them. Vital Signs: reviewed and remarkable for Hypotension and tachycardia Additional History obtained from: EMS Chronic Medical/Social Conditions affecting care: dementia; paroxysmal SVT Prior/ Outside/ External records reviewed: I did review previous inpatient records Differential Diagnosis: cardiac dysrhythmia, pneumonia, CHF, cardiac ischemia Diagnostics, independently interpreted by me: ECG: supraventricular tachycardia at a rate of 172 segment depression lateral leads and 1 and aVL Cardiac Monitoring: normal sinus rhythm at a rate of 96 Imaging studies: portable chest x-ray: Patient has evidence of bilateral opacities and some mild pulmonary edema. There is question whether this could be aspiration as per my independent interpretation HPI: 80 year old Male arrives for evaluation of generalized weakness and tachycardia. Patient has significant lower extremity edema. He suffered a ground-level fall earlier today. He now has a fever. EMS was called to the patient's home earlier today. They assisted him up off the floor but he refused transport to the hospital at that time. They were called back tonight because he has such significant edema to his legs, generalized weakness and a fever. Patient was recently released from [facility]. PAST MEDICAL HISTORY: See Below, PAST SURGICAL HISTORY: See Below, SOCIAL HISTORY: Patient lives at home, HOME MEDICATIONS: see list ALLERGIES: see list VITALS: See Below PHYSICAL EXAMINATION: HEENT: Head - normocephalic and atraumatic. Pupils are equal, round, and reactive to light. Extraocular eye muscles are intact, and sclera are anicteric. Nose - Dry nasal mucosa without discharge. Mouth - dry buccal mucosa. Oropharynx is nonerythematous and there is no tonsillar exudate or edema noted. Neck: Supple; no JVD, nuchal rigidity, cervical lymphadenopathy, or auscultated bruits. Heart: tachycardic rate with a irregularly irregular rhythm. There is a normal S1 and S2 with no murmurs, clicks, or gallops appreciated. Lungs: diffuse rhonchi in all lung cobian. Abdomen: Soft, completely nontender, nondistended, with good bowel sounds. There are no palpable pulsatile masses or hepatosplenomegaly. There is no guarding, rigidity, or rebound noted. Extremities: 4+ pitting edema in both lower extremities Skin: warm and dry with good turgor and no rashes. neuro: Patient is slow to answer questions but is able to answer some of them appropriately. He will easily follow commands. He is moving all 4 extremities. Emergency Department treatment: awake overnight monitor, supplemental oxygen, IV normal saline bolus, IV cefepime, emergency department course: The patient was evaluated in room B-4. I septic protocol was performed. The patient was on supplemental oxygen to maintain O2 saturations greater than 90%. Blood cultures were obtained. Urine specimen was obtained. BioFire testing was obtained. Patient received a 500 cc bolus of saline. Portable chest x-ray was performed. Order was placed for continuous cardiac monitoring. Patient was in SVT at a rate of 172. He then quickly converted into a normal sinus rhythm at a rate of 96. Twelve-lead EKG was obtained. He was given a dose of IV cefepime. [facility] care. I have personally spent greater than 45 minutes of critical care time in the direct management of this patient. This includes bedside care, interpretation of diagnostic studies, and testing, discussion with consultants, patient, and family members, and other required patient management activities. This 45 minutes is in excess of all separately billable procedures. Past Med/Surg History Problem List (Updated 10/15/25 @ 15:50 by Venus Moreno DO) Hypoxia (Acute) Acute hypotension (Acute) Bilateral pneumonia (Acute) Paroxysmal supraventricular tachycardia (Acute) Paroxysmal SVT (supraventricular tachycardia) Aspiration pneumonia Status post hip hemiarthroplasty CKD (chronic kidney disease) RAUL (acute kidney injury) Unable to care for self (Acute) Fall (Acute) Closed displaced fracture of left femoral neck (Acute) Hip fracture due to osteoporosis Blurred vision (Acute) Vision changes Elevated troponin (Acute) Acute CHF (Acute) Melena Weight loss Pneumonia due to COVID-19 virus Anemia COVID-19 Asymptomatic hypertensive urgency Fall (Acute) Elevated troponin (Acute) Abnormal ECG (Acute) Hypomagnesemia (Acute) Hypokalemia Stroke-like symptoms Dizziness (Acute) Medical History (Updated 10/15/25 @ 15:50 by Venus Moreno DO) Aortic stenosis, mild Vitamin D deficiency B12 deficiency Tobacco use disorder Renal mass Transient cerebral ischemia HTN (hypertension) Crohn's disease History of prostate cancer History of colon cancer Urge incontinence Depression Peripheral neuropathy Adult failure to thrive Generalized weakness Altered mental status CKD (chronic kidney disease), stage III Parkinsonism Chronic renal disease, stage 4, severely decreased glomerular filtration rate (GFR) between 15-29 mL/min/1.73 square meter Bilateral leg edema Elevated brain natriuretic peptide (BNP) level Hypervolemia associated with renal insufficiency Acute diastolic CHF (congestive heart failure) Uncontrolled hypertension Stroke-like symptom Amaurosis fugax of right eye (HFpEF) heart failure with preserved ejection fraction Dementia Aphasia Tremor Surgical History (Updated 09/29/25 @ 14:55 by Roc Palafox PA-C) S/P partial colectomy S/P TURP Family History Daughter Cancer Ovarian cancer Other Hypertension Denies family history of Prostate cancer Myocardial infarction Breast cancer Colorectal cancer Social History Smoking Status: Current every day smoker Tobacco Type: Cigarettes Age Started Using Tobacco: 76; packs per day: 0.50; Cigarettes Per Day: 10; Second Hand Exposure: No; Do You Dip or Chew Tobacco: No; Hx Alcohol Use: No Hx Substance Use: No Preferred Language: Wolof Communication Ability: Effective Visual Impairment: No Limitations Hearing Ability: Normal [employer] Supervisor Required: No Beliefs That Will Affect Care: None marital status: Current Living Situation: Spouse Current Living Situation Comment: lives at home with current occupational status: retired Feels Safe at Home: Yes Childhood Exposure to Second-Hand Smoke: Yes Diet: regular caffeine: Yes (1 coffee 1 pepsi daily) Dental Care, Regularly: No Physical Activity Frequency: Does not Exercise Seatbelt Use: always Sunscreen Use: No Do you think of yourself as: straight/heterosexual Gender Identity: Male Assistive Devices: Cane and Walker Allergies Allergies Allergy/AdvReac Type Severity Reaction Status Date / Time Sulfa (Sulfonamide Allergy Intermediate HIVES Verified 08/10/25 08:40 Antibiotics) Home Meds Previous Rx's Medication Instructions Recorded potassium chloride 20 mEq oral 40 meq PO DAILY #30 ea 06/18/25 packet (Klor-Con) furosemide 40 mg tablet 40 mg PO QAM 1 month #90 tabs 07/15/25 carbidopa 25 mg-levodopa 100 mg 1 tab PO TID #90 tabs 09/01/25 tablet acetaminophen 500 mg tablet 1,000 mg (2 x 500 mg) PO Q8H PRN 09/21/25 (Tylenol Extra Strength) pain #60 tabs ammonium lactate 5 % lotion 1 applic EXT DAILY #226 grams 09/21/25 (Lac-Hydrin Five) aspirin 81 mg tablet,delayed 81 mg PO BID #60 tabs 09/21/25 release (Adult Low Dose Aspirin) carvedilol 12.5 mg tablet 12.5 mg PO BIDM #60 tabs 09/21/25 cholecalciferol (vitamin D3) 25 25 mcg PO QAM #30 caps 09/21/25 mcg (1,000 unit) capsule cyanocobalamin (vitamin B-12) 1,000 mcg PO DAILY #30 caps 09/21/25 1,000 mcg capsule ferrous sulfate 325 mg (65 mg 325 mg PO QAM #30 tabs 09/21/25 iron) tablet,delayed release nicotine 7 mg/24 hr daily 1 patch transdermal QAM #14 ea 09/21/25 transdermal patch triamcinolone acetonide 0.1 % 1 applic topical BID #80 grams 10/11/25 topical cream amoxicillin 875 mg-potassium 1 tab PO BID aspiration pneumonia 10/15/25 clavulanate 125 mg tablet #7 tabs carvedilol 3.125 mg tablet 3.125 mg PO BID #60 tabs 10/15/25 Results & Data (ED) Vital Signs Vital Signs - 24 hr 10/13/25 23:53 10/14/25 00:00 10/14/25 00:03 Temperature 37.7 C H Temperature Source Oral Pulse Rate 105 H 116 H Pulse Rate from SpO2 Sensor Respiratory Rate 22 Respiratory Effort / Characteristics Non-Labored Spontaneous Respiratory Depth Normal Blood Pressure 165/105 H 163/107 H Blood Pressure Mean 125 116 Pulse Oximetry 94 Oxygen Delivery Method Room Air Oxygen Flow Rate Sepsis Recent Fever Within 48 Hours Yes Sepsis New/Unexplained Change in Mental Status N/A Sepsis Action Taken by Nursing No Action Required 10/14/25 00:03 10/14/25 00:12 10/14/25 00:12 Temperature Temperature Source Pulse Rate 121 H 115 H Pulse Rate from SpO2 Sensor 121 H 115 H Respiratory Rate 29 H 28 H Respiratory Effort / Characteristics Respiratory Depth Blood Pressure Blood Pressure Mean Pulse Oximetry 92 93 92 Oxygen Delivery Method Room Air Oxygen Flow Rate Sepsis Recent Fever Within 48 Hours Sepsis New/Unexplained Change in Mental Status Sepsis Action Taken by Nursing 10/14/25 00:20 10/14/25 00:21 10/14/25 00:30 Temperature Temperature Source Pulse Rate 193 H 109 H 115 H Pulse Rate from SpO2 Sensor 117 H Respiratory Rate 28 H 24 Respiratory Effort / Characteristics Respiratory Depth Blood Pressure 154/101 H Blood Pressure Mean 118 Pulse Oximetry 91 Oxygen Delivery Method Oxygen Flow Rate Sepsis Recent Fever Within 48 Hours Sepsis New/Unexplained Change in Mental Status Sepsis Action Taken by Nursing 10/14/25 00:42 10/14/25 00:51 10/14/25 00:54 Temperature Temperature Source Pulse Rate 115 H 168 H 111 H Pulse Rate from SpO2 Sensor 160 H 111 H Respiratory Rate 23 32 H 22 Respiratory Effort / Characteristics Respiratory Depth Blood Pressure 121/82 Blood Pressure Mean 95 Pulse Oximetry 92 96 Oxygen Delivery Method Oxygen Flow Rate Sepsis Recent Fever Within 48 Hours Sepsis New/Unexplained Change in Mental Status Sepsis Action Taken by Nursing 10/14/25 00:55 10/14/25 00:57 10/14/25 00:59 Temperature Temperature Source Pulse Rate 113 H Pulse Rate from SpO2 Sensor 113 H Respiratory Rate Respiratory Effort / Characteristics Respiratory Depth Blood Pressure 89/67 L 99/62 L Blood Pressure Mean 78 83 Pulse Oximetry 97 Oxygen Delivery Method Oxygen Flow Rate Sepsis Recent Fever Within 48 Hours Sepsis New/Unexplained Change in Mental Status Sepsis Action Taken by Nursing 10/14/25 01:00 10/14/25 01:03 10/14/25 01:05 Temperature Temperature Source Pulse Rate 108 H 172 H Pulse Rate from SpO2 Sensor 112 H 171 H Respiratory Rate 14 5 L Respiratory Effort / Characteristics Respiratory Depth Blood Pressure 157/90 H Blood Pressure Mean 111 Pulse Oximetry 96 96 Oxygen Delivery Method Oxygen Flow Rate Sepsis Recent Fever Within 48 Hours Sepsis New/Unexplained Change in Mental Status Sepsis Action Taken by Nursing 10/14/25 01:12 10/14/25 01:15 10/14/25 01:15 Temperature Temperature Source Pulse Rate Pulse Rate from SpO2 Sensor 162 H 171 H Respiratory Rate Respiratory Effort / Characteristics Respiratory Depth Blood Pressure 130/93 Blood Pressure Mean 107 Pulse Oximetry 96 98 Oxygen Delivery Method Oxygen Flow Rate Sepsis Recent Fever Within 48 Hours Sepsis New/Unexplained Change in Mental Status Sepsis Action Taken by Nursing 10/14/25 01:18 10/14/25 01:20 10/14/25 01:21 Temperature Temperature Source Pulse Rate 107 H 108 H Pulse Rate from SpO2 Sensor 108 H 109 H Respiratory Rate 26 H 0 L Respiratory Effort / Characteristics Respiratory Depth Blood Pressure 149/89 H Blood Pressure Mean 104 Pulse Oximetry 97 98 Oxygen Delivery Method Oxygen Flow Rate Sepsis Recent Fever Within 48 Hours Sepsis New/Unexplained Change in Mental Status Sepsis Action Taken by Nursing 10/14/25 01:24 10/14/25 01:25 10/14/25 01:26 Temperature Temperature Source Pulse Rate 172 H Pulse Rate from SpO2 Sensor 170 H Respiratory Rate 0 L Respiratory Effort / Characteristics Respiratory Depth Blood Pressure 140/90 Blood Pressure Mean 110 Pulse Oximetry 97 97 Oxygen Delivery Method Nasal Cannula Oxygen Flow Rate 2 Sepsis Recent Fever Within 48 Hours Sepsis New/Unexplained Change in Mental Status Sepsis Action Taken by Nursing 10/14/25 01:27 10/14/25 01:28 10/14/25 01:30 Temperature Temperature Source Pulse Rate 108 H 110 H Pulse Rate from SpO2 Sensor 110 H 107 H Respiratory Rate 8 L 12 Respiratory Effort / Characteristics Respiratory Depth Blood Pressure 118/85 158/122 H Blood Pressure Mean 98 134 Pulse Oximetry 97 97 Oxygen Delivery Method Oxygen Flow Rate Sepsis Recent Fever Within 48 Hours Sepsis New/Unexplained Change in Mental Status Sepsis Action Taken by Nursing 10/14/25 01:33 10/14/25 01:34 10/14/25 01:50 Temperature Temperature Source Pulse Rate 173 H Pulse Rate from SpO2 Sensor 172 H Respiratory Rate 18 Respiratory Effort / Characteristics Respiratory Depth Blood Pressure 140/103 H 148/89 H Blood Pressure Mean 106 103 Pulse Oximetry 97 Oxygen Delivery Method Oxygen Flow Rate Sepsis Recent Fever Within 48 Hours Sepsis New/Unexplained Change in Mental Status Sepsis Action Taken by Nursing 10/14/25 01:51 10/14/25 01:54 10/14/25 01:55 Temperature Temperature Source Pulse Rate 174 H 130 H Pulse Rate from SpO2 Sensor 170 H 111 H Respiratory Rate 1 L 0 L Respiratory Effort / Characteristics Respiratory Depth Blood Pressure 100/71 Blood Pressure Mean 87 Pulse Oximetry 97 97 Oxygen Delivery Method Oxygen Flow Rate Sepsis Recent Fever Within 48 Hours Sepsis New/Unexplained Change in Mental Status Sepsis Action Taken by Nursing 10/14/25 02:00 10/14/25 02:03 10/14/25 02:05 Temperature Temperature Source Pulse Rate 100 H 105 H Pulse Rate from SpO2 Sensor 110 H 110 H Respiratory Rate 13 0 L Respiratory Effort / Characteristics Respiratory Depth Blood Pressure 145/95 H 127/87 Blood Pressure Mean 111 102 Pulse Oximetry 98 97 Oxygen Delivery Method Oxygen Flow Rate Sepsis Recent Fever Within 48 Hours Sepsis New/Unexplained Change in Mental Status Sepsis Action Taken by Nursing 10/14/25 02:09 10/14/25 02:10 10/14/25 02:12 Temperature Temperature Source Pulse Rate 108 H 166 H Pulse Rate from SpO2 Sensor Respiratory Rate 0 L 5 L Respiratory Effort / Characteristics Respiratory Depth Blood Pressure 124/80 Blood Pressure Mean 103 Pulse Oximetry Oxygen Delivery Method Oxygen Flow Rate Sepsis Recent Fever Within 48 Hours Sepsis New/Unexplained Change in Mental Status Sepsis Action Taken by Nursing 10/14/25 02:15 10/14/25 02:18 10/14/25 02:20 Temperature Temperature Source Pulse Rate 108 H 107 H Pulse Rate from SpO2 Sensor Respiratory Rate 0 L 27 H Respiratory Effort / Characteristics Respiratory Depth Blood Pressure 130/82 125/84 Blood Pressure Mean 98 99 Pulse Oximetry Oxygen Delivery Method Oxygen Flow Rate Sepsis Recent Fever Within 48 Hours Sepsis New/Unexplained Change in Mental Status Sepsis Action Taken by Nursing 10/14/25 02:21 10/14/25 02:24 10/14/25 02:25 Temperature Temperature Source Pulse Rate 107 H 110 H Pulse Rate from SpO2 Sensor Respiratory Rate 15 20 Respiratory Effort / Characteristics Respiratory Depth Blood Pressure 128/77 Blood Pressure Mean 94 Pulse Oximetry Oxygen Delivery Method Oxygen Flow Rate Sepsis Recent Fever Within 48 Hours Sepsis New/Unexplained Change in Mental Status Sepsis Action Taken by Nursing 10/14/25 02:30 10/14/25 02:30 10/14/25 02:33 Temperature Temperature Source Pulse Rate 114 H 109 H Pulse Rate from SpO2 Sensor Respiratory Rate 17 Respiratory Effort / Characteristics Respiratory Depth Blood Pressure 150/101 H 150/101 H Blood Pressure Mean 117 110 Pulse Oximetry Oxygen Delivery Method Oxygen Flow Rate Sepsis Recent Fever Within 48 Hours Sepsis New/Unexplained Change in Mental Status Sepsis Action Taken by Nursing 10/14/25 02:35 10/14/25 02:39 10/14/25 02:40 Temperature Temperature Source Pulse Rate 116 H Pulse Rate from SpO2 Sensor Respiratory Rate Respiratory Effort / Characteristics Respiratory Depth Blood Pressure 133/86 123/81 Blood Pressure Mean 107 93 Pulse Oximetry Oxygen Delivery Method Oxygen Flow Rate Sepsis Recent Fever Within 48 Hours Sepsis New/Unexplained Change in Mental Status Sepsis Action Taken by Nursing 10/14/25 02:42 10/14/25 02:45 10/14/25 02:48 Temperature Temperature Source Pulse Rate 109 H 106 H 110 H Pulse Rate from SpO2 Sensor Respiratory Rate Respiratory Effort / Characteristics Respiratory Depth Blood Pressure 139/84 Blood Pressure Mean 102 Pulse Oximetry Oxygen Delivery Method Oxygen Flow Rate Sepsis Recent Fever Within 48 Hours Sepsis New/Unexplained Change in Mental Status Sepsis Action Taken by Nursing 10/14/25 02:50 10/14/25 02:51 10/14/25 03:00 Temperature Temperature Source Pulse Rate 109 H 112 H Pulse Rate from SpO2 Sensor 109 H 110 H Respiratory Rate Respiratory Effort / Characteristics Respiratory Depth Blood Pressure 141/100 H 148/90 H Blood Pressure Mean 116 109 Pulse Oximetry 96 98 Oxygen Delivery Method Oxygen Flow Rate Sepsis Recent Fever Within 48 Hours Sepsis New/Unexplained Change in Mental Status Sepsis Action Taken by Nursing Laboratory Data 10/14/25 00:01 10/14/25 00:01 Lab Results 10/14/25 10/14/25 10/14/25 Range/Units 00:01 00:07 01:00 WBC 16.78 H (4.8-10.8) K/ul RBC 3.26 L (4.70-6.10) M/uL Hgb 9.9 L (14.0-18.0) g/dL POC Hgb (14.0-18.0) g/dl Hct 29.8 L (42.0-52.0) % POC Hct (42-52) % MCV 91.4 (80.0-100.0) fL MCH 30.4 (25.0-34.0) pg MCHC 33.2 (32.0-36.0) g/dL RDW Std Deviation 54.4 H (36.4-46.3) fL RDW Coeff of Ruiz 17.0 H (11.5-14.5) % Plt Count 309 (130-400) K/uL MPV 10.5 (9.4-12.4) fL Immature Gran % (Auto) 0.5 % Neut % (Auto) 91.8 % Lymph % (Auto) 1.4 % [place] % (Auto) 6.1 % Eos % (Auto) 0.1 % Baso % (Auto) 0.1 % Neut # (Auto) 15.39 H (1.40-6.50) K/uL Lymph # (Auto) 0.24 L (1.20-3.40) K/uL [place] # (Auto) 1.03 H (0.11-0.59) K/uL Eos # (Auto) 0.02 (0.00-0.50) K/uL Baso # (Auto) 0.02 (0.00-0.20) K/uL Immature Gran # (Auto) 0.08 (0.01-0.20) K/uL POC Sodium (135-144) mmol/L Sodium 136 (136-145) mmol/L POC Potassium (3.3-5.0) mmol/L Potassium 4.0 (3.5-5.1) mmol/L POC Chloride (101-112) mmol/L Chloride 104 (98-107) mmol/L Carbon Dioxide 25 (21-32) mmol/L POC Total CO2 (24-31) mmol/L Anion Gap 7 (3-11) POC Anion Gap (16-25) mmol/L POC BUN (7-18) mg/dl BUN 28 H (6-23) mg/dl Creatinine 1.92 H (0.6-1.4) mg/dl POC Creatinine (0.6-1.3) mg/dl Est Cr Clr Drug Dosing 29.0 ml/min eGFR 34.35 BUN/Creatinine Ratio 14.6 (10-20) Glucose 86 (70-99(Fasting)) mg/dl POC Glucose (other) (70-99) mg/dl Lactate (0.4-2.0) mmol/L Calcium 9.2 (8.6-10.3) mg/dl POC Ioniz Calcium [place] (1.12-1.32) mmol/l Magnesium (1.7-2.4) mg/dl Total Bilirubin 0.6 (0.2-1.0) mg/dl AST 9 L (13-39) U/L ALT 7 (7-52) U/L Alkaline Phosphatase 88 (34-104) U/L Troponin I High Sens (0-20) pg/ml Total Protein 6.7 (6.0-8.3) gm/dl Albumin 2.9 L (3.4-5.0) gm/dl Globulin 3.8 (2.5-4.0) gm/dl Albumin/Globulin Ratio 0.8 L (0.9-2) Procalcitonin 0.52 H (0-0.5) ng/ml TSH 1.574 (0.300-4.500) uIu/ml Urine Color Yellow Urine Appearance Clear (Clear) Urine pH 8.0 H (4.5-7.5) Ur Specific [place] 1.009 (1.000-1.030) Urine Protein 1+ H (Negative) Urine Glucose (UA) Negative (Negative) Urine Ketones Negative (Negative) Urine Blood Negative (Negative) Urine Nitrite Negative (Negative) Urine Bilirubin Negative (Negative) Urine Urobilinogen Negative (Negative) Ur Leukocyte Esterase Negative (Negative) Urine WBC (Auto) 0-5 (0-5) /hpf Urine RBC (Auto) 0-2 (0-2) /hpf U Hyaline Cast (Auto) 0-2 (0-2) /lpf U Epithel Cells (Auto) 0-2 (0-2) /hpf Urine Bacteria (Auto) None Seen (None Seen) Urine Comment Nasal Screen MRSA (PCR) (Negative) Adenovirus (PCR) Not Detected (NotDetected) B. pertussis DNA (PCR) Not Detected (NotDetected) B.parapertussis DNA PCR Not Detected (NotDetected) C. pneumoniae DNA (PCR) Not Detected (NotDetected) Coronavirus OC43 (PCR) Not Detected (NotDetected) Coronavirus HKU1 (PCR) Not Detected (NotDetected) Coronavirus 229E (PCR) Not Detected (NotDetected) SARS-CoV-2 (PCR) Not Detected (NotDetected) Coronavirus NL63 (PCR) Not Detected (NotDetected) Human Metapneumovir PCR Not Detected (NotDetected) Influenza Type A (PCR) Not Detected (NotDetected) Influenza Type B (PCR) Not Detected (NotDetected) M. pneumoniae (PCR) Not Detected (NotDetected) Parainfluenza 1 (PCR) Not Detected (NotDetected) Parainfluenza 2 (PCR) Not Detected (NotDetected) Parainfluenza 3 (PCR) Not Detected (NotDetected) Parainfluenza 4 (PCR) Not Detected (NotDetected) RSV (PCR) Not Detected (NotDetected) Entero/Rhino (PCR) Not Detected (NotDetected) 10/14/25 10/14/25 10/14/25 Range/Units 01:03 01:17 02:44 WBC (4.8-10.8) K/ul RBC (4.70-6.10) M/uL Hgb (14.0-18.0) g/dL POC Hgb 9.9 L (14.0-18.0) g/dl Hct (42.0-52.0) % POC Hct 29 L (42-52) % MCV (80.0-100.0) fL MCH (25.0-34.0) pg MCHC (32.0-36.0) g/dL RDW Std Deviation (36.4-46.3) fL RDW Coeff of Ruiz (11.5-14.5) % Plt Count (130-400) K/uL MPV (9.4-12.4) fL Immature Gran % (Auto) % Neut % (Auto) % Lymph % (Auto) % [place] % (Auto) % Eos % (Auto) % Baso % (Auto) % Neut # (Auto) (1.40-6.50) K/uL Lymph # (Auto) (1.20-3.40) K/uL [place] # (Auto) (0.11-0.59) K/uL Eos # (Auto) (0.00-0.50) K/uL Baso # (Auto) (0.00-0.20) K/uL Immature Gran # (Auto) (0.01-0.20) K/uL POC Sodium 138 (135-144) mmol/L Sodium (136-145) mmol/L POC Potassium 3.8 (3.3-5.0) mmol/L Potassium (3.5-5.1) mmol/L POC Chloride 104 (101-112) mmol/L Chloride (98-107) mmol/L Carbon Dioxide (21-32) mmol/L POC Total CO2 23 L (24-31) mmol/L Anion Gap (3-11) POC Anion Gap 16.0 (16-25) mmol/L POC BUN 25 H (7-18) mg/dl BUN (6-23) mg/dl Creatinine (0.6-1.4) mg/dl POC Creatinine 2.1 H (0.6-1.3) mg/dl Est Cr Clr Drug Dosing ml/min eGFR BUN/Creatinine Ratio (10-20) Glucose (70-99(Fasting)) mg/dl POC Glucose (other) 81 (70-99) mg/dl Lactate 1.2 (0.4-2.0) mmol/L Calcium (8.6-10.3) mg/dl POC Ioniz Calcium [place] 1.23 (1.12-1.32) mmol/l Magnesium 1.7 (1.7-2.4) mg/dl Total Bilirubin (0.2-1.0) mg/dl AST (13-39) U/L ALT (7-52) U/L Alkaline Phosphatase (34-104) U/L Troponin I High Sens 27.4 H 29.9 H (0-20) pg/ml Total Protein (6.0-8.3) gm/dl Albumin (3.4-5.0) gm/dl Globulin (2.5-4.0) gm/dl Albumin/Globulin Ratio (0.9-2) Procalcitonin (0-0.5) ng/ml TSH (0.300-4.500) uIu/ml Urine Color Urine Appearance (Clear) Urine pH (4.5-7.5) Ur Specific [place] (1.000-1.030) Urine Protein (Negative) Urine Glucose (UA) (Negative) Urine Ketones (Negative) Urine Blood (Negative) Urine Nitrite (Negative) Urine Bilirubin (Negative) Urine Urobilinogen (Negative) Ur Leukocyte Esterase (Negative) Urine WBC (Auto) (0-5) /hpf Urine RBC (Auto) (0-2) /hpf U Hyaline Cast (Auto) (0-2) /lpf U Epithel Cells (Auto) (0-2) /hpf Urine Bacteria (Auto) (None Seen) Urine Comment Nasal Screen MRSA (PCR) (Negative) Adenovirus (PCR) (NotDetected) B. pertussis DNA (PCR) (NotDetected) B.parapertussis DNA PCR (NotDetected) C. pneumoniae DNA (PCR) (NotDetected) Coronavirus OC43 (PCR) (NotDetected) Coronavirus HKU1 (PCR) (NotDetected) Coronavirus 229E (PCR) (NotDetected) SARS-CoV-2 (PCR) (NotDetected) Coronavirus NL63 (PCR) (NotDetected) Human Metapneumovir PCR (NotDetected) Influenza Type A (PCR) (NotDetected) Influenza Type B (PCR) (NotDetected) M. pneumoniae (PCR) (NotDetected) Parainfluenza 1 (PCR) (NotDetected) Parainfluenza 2 (PCR) (NotDetected) Parainfluenza 3 (PCR) (NotDetected) Parainfluenza 4 (PCR) (NotDetected) RSV (PCR) (NotDetected) Entero/Rhino (PCR) (NotDetected) 10/14/25 Range/Units 02:51 WBC (4.8-10.8) K/ul RBC (4.70-6.10) M/uL Hgb (14.0-18.0) g/dL POC Hgb (14.0-18.0) g/dl Hct (42.0-52.0) % POC Hct (42-52) % MCV (80.0-100.0) fL MCH (25.0-34.0) pg MCHC (32.0-36.0) g/dL RDW Std Deviation (36.4-46.3) fL RDW Coeff of Ruiz (11.5-14.5) % Plt Count (130-400) K/uL MPV (9.4-12.4) fL Immature Gran % (Auto) % Neut % (Auto) % Lymph % (Auto) % [place] % (Auto) % Eos % (Auto) % Baso % (Auto) % Neut # (Auto) (1.40-6.50) K/uL Lymph # (Auto) (1.20-3.40) K/uL [place] # (Auto) (0.11-0.59) K/uL Eos # (Auto) (0.00-0.50) K/uL Baso # (Auto) (0.00-0.20) K/uL Immature Gran # (Auto) (0.01-0.20) K/uL POC Sodium (135-144) mmol/L Sodium (136-145) mmol/L POC Potassium (3.3-5.0) mmol/L Potassium (3.5-5.1) mmol/L POC Chloride (101-112) mmol/L Chloride (98-107) mmol/L Carbon Dioxide (21-32) mmol/L POC Total CO2 (24-31) mmol/L Anion Gap (3-11) POC Anion Gap (16-25) mmol/L POC BUN (7-18) mg/dl BUN (6-23) mg/dl Creatinine (0.6-1.4) mg/dl POC Creatinine (0.6-1.3) mg/dl Est Cr Clr Drug Dosing ml/min eGFR BUN/Creatinine Ratio (10-20) Glucose (70-99(Fasting)) mg/dl POC Glucose (other) (70-99) mg/dl Lactate (0.4-2.0) mmol/L Calcium (8.6-10.3) mg/dl POC Ioniz Calcium [place] (1.12-1.32) mmol/l Magnesium (1.7-2.4) mg/dl Total Bilirubin (0.2-1.0) mg/dl AST (13-39) U/L ALT (7-52) U/L Alkaline Phosphatase (34-104) U/L Troponin I High Sens (0-20) pg/ml Total Protein (6.0-8.3) gm/dl Albumin (3.4-5.0) gm/dl Globulin (2.5-4.0) gm/dl Albumin/Globulin Ratio (0.9-2) Procalcitonin (0-0.5) ng/ml TSH (0.300-4.500) uIu/ml Urine Color Urine Appearance (Clear) Urine pH (4.5-7.5) Ur Specific [place] (1.000-1.030) Urine Protein (Negative) Urine Glucose (UA) (Negative) Urine Ketones (Negative) Urine Blood (Negative) Urine Nitrite (Negative) Urine Bilirubin (Negative) Urine Urobilinogen (Negative) Ur Leukocyte Esterase (Negative) Urine WBC (Auto) (0-5) /hpf Urine RBC (Auto) (0-2) /hpf U Hyaline Cast (Auto) (0-2) /lpf U Epithel Cells (Auto) (0-2) /hpf Urine Bacteria (Auto) (None Seen) Urine Comment Nasal Screen MRSA (PCR) Negative (Negative) Adenovirus (PCR) (NotDetected) B. pertussis DNA (PCR) (NotDetected) B.parapertussis DNA PCR (NotDetected) C. pneumoniae DNA (PCR) (NotDetected) Coronavirus OC43 (PCR) (NotDetected) Coronavirus HKU1 (PCR) (NotDetected) Coronavirus 229E (PCR) (NotDetected) SARS-CoV-2 (PCR) (NotDetected) Coronavirus NL63 (PCR) (NotDetected) Human Metapneumovir PCR (NotDetected) Influenza Type A (PCR) (NotDetected) Influenza Type B (PCR) (NotDetected) M. pneumoniae (PCR) (NotDetected) Parainfluenza 1 (PCR) (NotDetected) Parainfluenza 2 (PCR) (NotDetected) Parainfluenza 3 (PCR) (NotDetected) Parainfluenza 4 (PCR) (NotDetected) RSV (PCR) (NotDetected) Entero/Rhino (PCR) (NotDetected) Administered Medications Discontinued Medications Adenosine (Adenosine Iv Soln 3 Mg/Ml 2 Ml Vial) Confirm Administered Dose 24 mg IV .ST-MED [facility] Stop: 10/14/25 00:53 Last Admin: 10/14/25 02:58 Dose: Not Given Documented By: DIVINA Aspirin (Aspirin 81 Mg Ectab) 81 mg PO BID [facility] Stop: 11/13/25 08:59 Last Admin: 10/15/25 08:10 Dose: 81 mg Documented By: Admin: 10/14/25 21:29 Dose: 81 mg Documented By: Admin: 10/14/25 08:49 Dose: 81 mg Documented By: Carbidopa/Levodopa (Carbidopa/Levodopa 25/100mg Tab) 1 tab PO TID PEETR Stop: 11/13/25 08:59 Last Admin: 10/15/25 14:12 Dose: 1 tab Documented By: Admin: 10/15/25 08:10 Dose: 1 tab Documented By: Admin: 10/14/25 21:29 Dose: 1 tab Documented By: Admin: 10/14/25 13:47 Dose: 1 tab Documented By: Admin: 10/14/25 08:49 Dose: 1 tab Documented By: Carvedilol (Carvedilol 12.5 Mg Tab) 12.5 mg PO NOW STA Stop: 10/14/25 03:20 Last Admin: 10/14/25 03:43 Dose: 12.5 mg Documented By: DIVINA Carvedilol (Carvedilol 12.5 Mg Tab) 12.5 mg PO BIDM PETER Stop: 11/13/25 07:59 Last Admin: 10/15/25 08:10 Dose: 12.5 mg Documented By: Admin: 10/14/25 16:44 Dose: 12.5 mg Documented By: Admin: 10/14/25 08:49 Dose: 12.5 mg Documented By: Cyanocobalamin (Cyanocobalamin (B-12) 500 Mcg Tablet) 1,000 mcg PO DAILY PETER Stop: 11/13/25 08:59 Last Admin: 10/15/25 08:10 Dose: 1,000 mcg Documented By: Admin: 10/14/25 08:48 Dose: 1,000 mcg Documented By: Ferrous Sulfate (Ferrous Sulfate 325 Mg Tab) 325 mg PO QAM PETER Stop: 11/13/25 08:59 Last Admin: 10/15/25 08:10 Dose: 325 mg Documented By: Admin: 10/14/25 08:49 Dose: 325 mg Documented By: Heparin Sodium (Porcine) (Heparin Sod 5,000 Unit/0.5 Ml Vial) 5,000 units SQ Q12 PETER Stop: 11/13/25 20:59 Last Admin: 10/15/25 08:12 Dose: Not Given Documented By: Admin: 10/14/25 21:31 Dose: Not Given Documented By: GONZALES Sodium Chloride (Nss) 500 mls @ 999 mls/hr IV .Q31M ONE Stop: 10/14/25 01:32 Last Infusion: 10/14/25 02:09 Dose: Infused Documented By: Admin: 10/14/25 01:28 Dose: 999 mls/hr Documented By: DIVINA Cefepime HCl (Maxipime 2000mg) 2,000 mg in 20 mls @ 5 mls/min IV NOW STA; Protocol Stop: 10/14/25 02:37 Last Admin: 10/14/25 02:47 Dose: 5 mls/min Documented By: DIVINA Magnesium Sulfate/Dextrose (Magnesium Sulfate / D5w) 1 gm in 100 mls @ 50 mls/hr IV ONE STA Stop: 10/14/25 04:51 Last Infusion: 10/14/25 06:05 Dose: Infused Documented By: Admin: 10/14/25 03:43 Dose: 50 mls/hr Documented By: DIVINA Albumin Human (Albumin 25%) 25 gm in 100 mls @ 50 mls/hr IV ONE STA Stop: 10/14/25 05:17 Last Infusion: 10/14/25 06:05 Dose: Infused Documented By: Admin: 10/14/25 03:43 Dose: 50 mls/hr Documented By: DIVINA Cefepime HCl (Maxipime 2000mg) 1,000 mg in 10 mls @ 5 mls/min IV Q12H [facility]; Protocol Stop: 10/19/25 14:59 Last Admin: 10/15/25 14:12 Dose: 5 mls/min Documented By: Admin: 10/15/25 02:02 Dose: 5 mls/min Documented By: Admin: 10/14/25 14:50 Dose: 5 mls/min Documented By: vinnie Co-signed By: MAEVE Lactic Acid (Ammonium Lactate 12% Lotion 225 Gm Btl) 1 gm EXT DAILY [facility] Stop: 11/13/25 08:59 Last Admin: 10/15/25 08:11 Dose: 1 gm Documented By: Admin: 10/14/25 08:49 Dose: 1 gm Documented By: Miscellaneous (Remove Nicoderm Patch) 1 each N/A DAILY@0859 [facility] Stop: 11/14/25 08:58 Last Admin: 10/15/25 08:11 Dose: 1 each Documented By: Nicotine (Nicotine 14 Mg/24 Hr Patch) 1 patch TD QAM [facility] Stop: 11/13/25 08:59 Last Admin: 10/15/25 08:11 Dose: 1 patch Documented By: Admin: 10/14/25 08:48 Dose: 1 patch Documented By: Triamcinolone Acetonide (Triamcinolone Acet 0.1% Cr 15 Gm Tube) 1 appln TOP BID [facility] Stop: 11/13/25 08:59 Last Admin: 10/15/25 08:11 Dose: 1 appln Documented By: Admin: 10/14/25 21:30 Dose: 1 appln Documented By: Admin: 10/14/25 08:49 Dose: 1 appln Documented By: Vitamin D (Cholecalciferol 25 Mcg (1000 Units) Tab) 25 [facility] [place] [place] Stop: 11/13/25 08:59 Last Admin: 10/15/25 08:10 Dose: 25 mcg Documented By: Admin: 10/14/25 08:49 Dose: 25 mcg Documented By: Imaging Data Radiologist's Impression: Chest X-Ray 10/14/25 00:11 EXAM: XR chest 1V portable CLINICAL HISTORY: Weakness. TECHNIQUE: An X-ray image of the chest was obtained in the AP projection. COMPARISON: Compared with CT dated 09/15/2025. FINDINGS: Pulmonary Parenchyma: An ill-defined area of faint opacity is seen in the right lower lung zone. Another smaller area of faint opacity is seen in the left lower zone. There is right basal atelectasis. There is obscuration of the right costophrenic angle; minimal effusion cannot be excluded. There is no evidence of left pleural effusion or pleural thickening. Heart and Mediastinum: The heart size and shape are normal. There is no mediastinal widening or masses. No hilar or mediastinal lymphadenopathy is identified. There is aortic atherosclerosis. Bony Thorax: The bony thorax appears intact without fractures or deformities. Soft Tissues: The soft tissues overlying the chest wall are unremarkable. IMPRESSION: 1. An ill-defined area of faint opacity is seen in the right lower lung zone. Another smaller area of faint opacity is seen in the left lower zone. This could represent lung infiltration; clinical correlation is recommended (new). 2. Obscuration of the right costophrenic angle; minimal effusion cannot be excluded. 3. Right basal atelectasis. Electronically signed by Jason Morales 10-14-2025 01:18 AM Discharge Plan Visit Data Chief Complaint: Weakness Stated Complaint: FALL, WEAKNESS ED Provider: Venus Moreno Discharge Problem: Paroxysmal supraventricular tachycardia, Bilateral pneumonia, Acute hypotension, Hypoxia Patient Disposition: Admitted As Inpatient Condition: Critical Discharge Instructions Interventions: ED Discharge Assessment Last Done: 10/14/25 04:35
[2025-10-14] MEDS ORDERED: ACETAMINOPHEN 500 MG TAB PO PRN (05:03)
[2025-10-14] MEDS ORDERED: ALBUT/IPRATROP 3MG/0.5MG NEB 3 ML VIAL NEB PRN (05:07)
[2025-10-14] MEDS: NICOTINE 14 MG/24 HR PATCH TD SCH (08:48)
[2025-10-14] MEDS: CYANOCOBALAMIN (B-12) 500 MCG TABLET PO SCH (08:48)
[2025-10-14] MEDS: AMMONIUM LACTATE 12% LOTION 225 GM BTL EXT SCH (08:49)
[2025-10-14] MEDS: CHOLECALCIFEROL 25 MCG (1000 UNITS) TAB PO SCH (08:49)
[2025-10-14] MEDS: ASPIRIN 81 MG ECTAB PO SCH (08:49)
[2025-10-14] MEDS: TRIAMCINOLONE ACET 0.1% CR 15 GM TUBE TOP SCH (08:49)
[2025-10-14] MEDS: FERROUS SULFATE 325 MG TAB PO SCH (08:49)
[2025-10-14] MEDS: CARBIDOPA/LEVODOPA 25/100MG TAB PO SCH (08:49)
[2025-10-14] MEDS: CEFEPIME 1000MG 1,000 MG/10 ML SYR IV SCH (14:50)
--- NOTE | 2025-10-14 18:11 | Hospitalist Progress Note ---
Date of Service October 14, 2025 Assessment & Plan (1) Aspiration pneumonia: (2) Unable to care for self: (3) Closed displaced fracture of left femoral neck: (4) Paroxysmal SVT (supraventricular tachycardia): Plan Admitted for aspiration pneumonia. # Aspiration pneumonia - Continue cefepime due to risk factors for gram-negative infections. -MRSA swab negative, low procalcitonin levels yesterday. Refuse labs this morning - Repeat procalcitonin test CBC and BMP in a.m. -Consulted speech therapist discussed with her today - Reviewed progress notes and speech pathology notes from mid-September admission. - Large Zenker's diverticulum causing aspiration, not amenable to diet texture changes. - Surgical treatment recommended, planned as outpatient. - Video swallow study on 09/15/2025 showed no aspiration. - Recommendations: elevate head of bed 45-90 degrees, strict oral hygiene with tooth brushing twice daily while eating and more frequently when not eating. Orders implemented. # Paroxysmal supraventricular tachycardia (SVT) - SVT resolved spontaneously, did not recur overnight. - Troponin levels minimally elevated, flat trend indicating myocardial demand ischemia. - Resumed carvedilol 12.5 mg BID, continued aspirin. Will increase carvedilol - Received 1g magnesium. - Continue telemetry monitoring, TTE pending. - Held furosemide and potassium. # CKD stage 3b - Creatinine level within baseline range at 1.92. # Zenker's diverticulum - Large Zenker's diverticulum causing aspiration, not amenable to diet texture changes. - Surgical treatment recommended, planned as outpatient. # Parkinson's disease, possible Lewy body dementia, depression -Continue carbidopa levodopa 3 times daily # Post-hip hemiarthroplasty status - Left hip hemiarthroplasty on 09/12/2025. - Surgical incision well healed, no erythema or drainage, shasta removed. No ongoing hip pain Tobacco use disordercontinue nicotine patch Anemia of chronic disease, stable. Continue B12, iron, D3 Adult failure to thrive Discharged home with home health recently - PT and OT consultations made. - DVT prophylaxis with subcutaneous heparin 5000 units every 12 hours. Medical Complexity: Medical decision making was complex, high risk for clinical deterioration morbidity, or mortality for this encounter. Admission and Anticipated Discharge Date Admission Date: October 14, 2025 Subjective The patient is an 80-year-old man who was admitted for aspiration pneumonia and SVT. He reports feeling much better today, with no shortness of breath, chest pain, or cough. He has not had any further episodes of SVT and is breathing comfortably on room air. He has a history of aspiration and Zenker's diverticulum. He reports improvement in symptoms does not feel short of breath cough may be improved, oxygen level improved. No chest pain no leg swelling. He has no pain from his left hip repair which has healed well Physical Exam Physical Exam: General Appearance: Sitting up, awake, alert, oriented. Paucity of verbal replies. Vital signs: Reviewed past 24h vital signs in EMR, unremarkable. HEENT: Masked facies. No tremor at rest. Respiratory: Clear lungs bilaterally, mild bibasilar crackles posteriorly. Cardiovascular: Regular heart with systolic murmur. Gastrointestinal: Soft, nontender, nondistended. Extremities: Warm, well-perfused lower extremities with 2+ pitting edema to lower calf. Skin: Warm and dry, no rash. Neurological: AOx4, normal speech and mentation, douglas x 4. Psychiatric: Normal. Results & Data Results & Data Vital Signs (Past 12 Hours) Vital Signs Temp Pulse Pulse Resp BP BP Pulse Ox 10/14/25 17:23 81 10/14/25 15:10 36.6 C 71 20 144/88 H 93 10/14/25 12:11 36.6 C 77 18 129/74 93 10/14/25 07:52 36.9 C 74 20 145/81 H 97 10/14/25 07:15 85 10/14/25 06:50 O2 Del Method 10/14/25 17:23 10/14/25 15:10 Room Air 10/14/25 12:11 Room Air 10/14/25 07:52 Room Air 10/14/25 07:15 10/14/25 06:50 Room Air Laboratory Results - Labs: - WBC: 16 - Hgb: 9.9 - BUN: 28 - Cr: 1.92 - Mg: Normal - Troponin: Flat 27 on presentation, 29 on recheck - TSH: 1.5 - UA: 1+ protein, no pyuria - Nasal MRSA: Negative - Respiratory BioFire: Negative - Imaging: - Ill-defined faint opacities in right and left bases: Potential minimal pleural effusion on right, right base atelectasis - Diagnostic Testing: - EKG: SVT, LVH, ST abnormality. Rate 172. Rate-related ST depression. PG Care Time/CCT Total # of Minutes Spent Total Time Spent with Patient: Total time spent is greater than 50% in coordination of care (as documented) at patient's floor/unit and/or counseling patient: Coding Level of Care Code None Diagnoses Aspiration pneumonia J69.0 Aspiration pneumonia type: due to regurgitated food Laterality: right Unable to care for self Z78.9 Closed displaced fracture of left femoral neck S72.002A Paroxysmal SVT (supraventricular tachycardia) I47.10 (1) Aspiration pneumonia Aspiration pneumonia type: due to regurgitated food Laterality: right
[2025-10-14] MEDS: HEPARIN SOD 5,000 UNIT/0.5 ML VIAL SQ SCH (21:31)
[2025-10-15] MEDS: REMOVE NICODERM PATCH SCH (08:11)
--- NOTE | 2025-10-15 09:41 | Electrocardiogram Report ---
Test Reason : Blood Pressure : */* mmHG Vent. Rate : 116 BPM Atrial Rate : 116 BPM P-R Int : 156 ms QRS Dur : 90 ms QT Int : 328 ms P-R-T Axes : 35 4 162 degrees QTcB Int : 455 ms Sinus tachycardia Left ventricular hypertrophy with repolarization abnormality ( Sokolow-Hamlin , Carmen product , Romhi lt-Pérez ) Abnormal ECG When compared with ECG of 11-Sep-2025 14:11, Premature supraventricular complexes are no longer Present ST more depressed Lateral leads Confirmed by Fei Hamilton ([id number]) on 10/15/2025 9:41:13 AM Referred By: REFERRED SELF Confirmed By: Fei Hamilton
--- NOTE | 2025-10-15 09:41 | Electrocardiogram Report ---
Test Reason : Blood Pressure : */* mmHG Vent. Rate : 172 BPM Atrial Rate : * BPM P-R Int : * ms QRS Dur : 88 ms QT Int : 284 ms P-R-T Axes : * 21 218 degrees QTcB Int : 480 ms Supraventricular tachycardia Left ventricular hypertrophy with repolarization abnormality ( Sokolow-Hamlin , Yazan product , Romhi lt-Pérez ) Marked ST abnormality, possible anterior subendocardial injury Abnormal ECG When compared with ECG of 13-Oct-2025 23:52, (unconfirmed) ST now depressed in Inferior leads ST now depressed in Anterior leads Confirmed by Fei Hamilton ([id number]) on 10/15/2025 9:41:32 AM Referred By: REFERRED SELF Confirmed By: Fei Hamilton
[2025-10-15 11:38] VITALS: BP 184/98; PULSE 67; RESP 22; TEMP 97.9; O2SAT 100
--- NOTE | 2025-10-16 08:06 | Electrocardiogram Report ---
Test Reason : Blood Pressure : */* mmHG Vent. Rate : 81 BPM Atrial Rate : 81 BPM P-R Int : 162 ms QRS Dur : 94 ms QT Int : 386 ms P-R-T Axes : 47 42 193 degrees QTcB Int : 448 ms Sinus rhythm with Premature atrial complexes Left ventricular hypertrophy with repolarization abnormality ( Sokolow-Hamlin , Yazan product , Romhi lt-Pérez ) ST depression in Inferolateral leads Abnormal ECG When compared with ECG of 14-Oct-2025 00:49, (unconfirmed) Premature ventricular complexes are now Present Vent. rate has decreased by [address] less depressed in Inferior leads ST no longer depressed in Anterior leads Confirmed by Fei Hamilton ([id number]) on 10/16/2025 8:06:23 AM Referred By: REFERRED SELF Confirmed By: Fei Hamilton
--- NOTE | 2025-10-16 15:45 | Discharge Summary ---
Discharge Summary Date of Service October 16, 2025 Principal Dx & Hospital Course #1 = Principal Diagnosis (1) Aspiration pneumonia: (2) Paroxysmal SVT (supraventricular tachycardia): (3) CKD (chronic kidney disease), stage III: (4) Parkinsonism: (5) Dementia: Plan Admitted for aspiration pneumonia related to his known Zencker's diverticulum and SVT. # Aspiration pneumonia # Zencker's diverticulum -MRSA swab negative, low procalcitonin - treated with cefepime due to risk factors for gram-negative infections, transitioned to augmentin at discharge. Was on room air at time of discharge and afebrile. - refused subsequent labs once out of ED -Consulted speech therapist - Large Zenker's diverticulum causing aspiration, not amenable to diet texture changes. - Video swallow study on 09/15/2025 showed no aspiration. - Recommendations: elevate head of bed 45-90 degrees, strict oral hygiene with tooth brushing twice daily while eating and more frequently when not eating. Discussed with his day of discharge - Surgical treatment recommended for Zencker's diverticulum, made referral to tertiary care gastroenterology at [facility] # Paroxysmal supraventricular tachycardia (SVT) # myocardial demand ischemia from hypoxia and SVT - SVT resolved spontaneously while still in ED, did not recur - Troponin levels minimally elevated, flat trend indicating myocardial demand ischemia. - continued aspirin. increased carvedilol - TTE 06/15 moderate conc LVH, EF 50% mild # CKD stage 3b - Creatinine level within baseline range at 1.92. # Parkinson's disease, Lewy body dementia, depression -Continue carbidopa levodopa 3 times daily -Was not oriented to situation and was forgetful -PT/OT rec 24h supervision which his will provide at home # Post-hip hemiarthroplasty status - Left hip hemiarthroplasty on 09/12/2025. - Surgical incision well healed, no erythema or drainage, shasta removed. No ongoing hip pain Tobacco use disordercontinue nicotine patch Anemia of chronic disease, stable. Continue B12, iron, D3 Adult failure to thrive - related to Parkinson's, dementia Discharged home with home health, his Admission HPI Per Admitting Provider The patient is a 80-year-old male with a past medical history including left hip hemiarthroplasty on 09/12/2025, CKD, Parkinson's, hypertension, vitamin D de ficiency, vitamin B12 deficiency, chronic anemia, and oropharyngeal dysphagia with Zenker's diverticulum. The patient was most recently admitted to [facility] from 09/11-09/21/2025 for a left hip fracture, and underwent a left hip hemiarthroplasty on 09/12/2025. During that admission he was also treated for chronic anemia with B12 IM for 3 days, and Venofer IV. Due to persistent weakness, patient was discharged to [facility], where he stayed from 09/21- 10/07/2025. He was then discharged to home with [facility] home health. The patient presents to the emergency department this evening with persistent and progressive generalized weakness, with dyspnea on exertion and shortness of breath. While on monitor in the emergency department, he had recurrent episodes of SVT, with rate up to 172, that resolved spontaneously. Troponin was 27.4, magnesium 1.7, creatinine stable at 1.92, hemoglobin improved to 9.9. Chest x- ray revealed a bibasilar pneumonia, likely due to aspiration, right greater than left. The patient was evaluated by speech therapy during last admission, and was found to have osito aspiration of liquids. Due to aspiration pneumonia, SVT, failure to thrive at home, patient was referred for evaluation and admission to the [facility] hospitalist service. Discharge Exam General Appearance: Sitting in chair, present Vital signs: Reviewed past 24h vital signs in EMR, unremarkable. HEENT: Masked facies. Respiratory: Clear lungs bilaterally on room air Cardiovascular: Regular heart with systolic murmur. Gastrointestinal: Soft, nontender, nondistended. Extremities: Warm, well-perfused lower extremities with mild pitting edema to lower calf improved Skin: Warm and dry, no rash. Neurological: Alert oriented to hospital but not situation, paucity of verbal replies, masked facies and rest tremor Psychiatric: Mildly irritable Discharge Plan Discharge Items Patient Disposition: Home - Home Health Services Reason For Visit: ASP PNEUMONIA, SVT Discharge Diagnosis: Aspiration pneumonia, SVT Condition on Discharge: Critical Activity: Resume your previous activity Non-emergency contact: Primary Care Provider Call non-emergency contact if: you have any medication questions, your symptoms worsen and your temperature is above 101 Follow-up/Referrals: Tina Romo DO [Primary Care Provider] - 10/25/25 11:00 am (10/25/25 at 11:00 with Lori DOWNS Diet: Regular Addtl Attending Provider Instructions: You had an aspiration related to the esophageal diverticulum Continue taking antibiotic for seven more doses starting tonight Keep the head of the bed elevated at least 45 degrees - you could use pillows or a foam wedge or a recliner. Make sure you're completely upright for at least an hour after meals. Don't eat before bedtime. Special diets/textures won't prevent aspiration in this case. It's very important to brush teeth at least twice a day - this decreases the a mount of bacteria in the mouth which decreases the risk of aspiration pneumonia We made a referral to tertiary care gastroenterology to see about clipping the Zencker's diverticulum. The GI clinic should call you to schedule an appointment You had a fast heartbeat in the ER which was related to the aspiration. I increased your carvedilol dose a little bit to help prevent these episodes. If you're having increased dizziness, lightheadedness or falls more than normal the dose may need to be dropped back down. Continue PT and OT home health It was a pleasure taking care of you in the hospital, Michelle Carrasco MD Pending Studies at Discharge: No Stand-Alone Forms: My [facility], Smoking Cessation Medications and DC Order Prescriptions: New carvedilol 3.125 mg tablet 3.125 mg PO BID Qty: 60 0RF Rx Instructions: must administer with a meal/food take with the 12.5 mg tablet so that the total dose is 15.675 amoxicillin-pot clavulanate 875-125 mg tablet 1 tab PO BID Qty: 7 0RF Continued furosemide 40 mg tablet 40 mg PO QAM 30 Days Qty: 90 3RF Hold Instructions: Resume on 10/05/25. Hold until advised to restart by nephrology triamcinolone acetonide 0.1 % cream 1 applic topical BID Qty: 80 0RF Rx Instructions: thin layer twice daily onto legs, followed by thick moisturizer carbidopa-levodopa 25-100 mg tablet 1 tab PO TID Qty: 90 5RF potassium chloride [Klor-Con] 20 mEq packet 40 meq PO DAILY Qty: 30 0RF Hold Instructions: Resume on 10/05/25. Hold until advised to restart by nephrology carvedilol 12.5 mg Tablet 12.5 mg PO BIDM Qty: 60 0RF acetaminophen [Tylenol Extra Strength] 500 mg Tablet 1,000 mg PO Q8H PRN (Reason: pain) Qty: 60 0RF ferrous sulfate 325 mg (65 mg iron) Tablet,Delayed Release (Dr/Ec) 325 mg PO QAM Qty: 30 0RF nicotine 7 mg/24 hr Patch 24 Hour 1 patch transdermal QAM Qty: 14 0RF Lac-Hydrin Five 5 % Lotion 1 applic EXT DAILY Qty: 226 0RF Rx Instructions: Apply to dry skin on legs cholecalciferol (vitamin D3) 25 mcg (1,000 unit) Capsule 25 mcg PO QAM Qty: 30 0RF cyanocobalamin (vitamin B-12) 1,000 mcg capsule 1,000 mcg PO DAILY Qty: 30 0RF aspirin [Adult Low Dose Aspirin] 81 mg tablet,delayed release (DR/EC) 81 mg PO BID Qty: 60 0RF Rx Instructions: X 4 weeks and then decrease back to once a day after that Discharge Orders: Discharge Order (Routine); Ordered 10/15/25 Ordered By: Michelle Rios/Other Patient Handouts: Preventing Deep Vein Thrombosis Admission Data Admit Date/Time: 10/14/25 03:28 Attending Provider: Michelle Carrasco Admit Provider: Clint Golden Primary Care Provider: Tina Romo Other Providers: Clint Golden; [facility],Home Healthcare Other Interventions: Discharge Summary Assessment (RN) Last Done: 10/15/25 13:25 Hospital Stay Data Consultations 10/14/25 02:37 ED Decision to Admit Stat Pending Results Patient Have Any Pending Studies at Discharge: No Discharge Instructions Given to Patient (Per Discharging Provider) You had an aspiration related to the esophageal diverticulum Continue taking antibiotic for seven more doses starting tonight Keep the head of the bed elevated at least 45 degrees - you could use pillows or a foam wedge or a recliner. Make sure you're completely upright for at least an hour after meals. Don't eat before bedtime. Special diets/textures won't prevent aspiration in this case. It's very important to brush teeth at least twice a day - this decreases the amount of bacteria in the mouth which decreases the risk of aspiration pneumonia We made a referral to tertiary care gastroenterology to see about clipping the Zencker's diverticulum. The GI clinic should call you to schedule an appointment You had a fast heartbeat in the ER which was related to the aspiration. I increased your carvedilol dose a little bit to help prevent these episodes. If you're having increased dizziness, lightheadedness or falls more than normal the dose may need to be dropped back down. Continue PT and OT home health It was a pleasure taking care of you in the hospital, Michelle Carrasco MD Total Time Total Time Spent Total Time Spent (In Minutes): I personally spent: 45 minutes today on clinical care activities including: reviewing chart notes and vital signs discussion with senior care assistant, bedside RN examining and counseling the patient counseling the patient's family writing orders writing prescriptions, discharge instructions documentation Coding Level of Care Code 56974 INP/OBS DISCH >30 MIN Diagnoses Aspiration pneumonia J69.0 Aspiration pneumonia type: due to regurgitated food Laterality: right Paroxysmal SVT (supraventricular tachycardia) I47.10 CKD (chronic kidney disease), stage III N18.30 Parkinsonism G20 Dementia F03.90
== END 2025-10-15 15:34 | disposition home health service (06) | DRG 178 ==
LOC: ED 23:45 → SUATTDRO 10-14 03:28 → 2S 10-14 03:28

== ENCOUNTER 2025-11-08 01:43 | Inpatient (IN) ==
[2025-11-08 02:54] LABS: Hematocrit (blood only) 32.1 % (42.0-52.0); Hemoglobin 10.2 g/dL (14.0-18.0); Immature Granulocytes # (auto) 0.02 K/uL (0.01-0.20); Immature Granulocytes % (auto) 0.2 %; Mean Corpuscular Hemoglobin 29.3 pg (25.0-34.0); Mean Corpuscular Volume 92.2 fL (80.0-100.0); Platelet Count 320 K/uL (130-400); RDW Standard Deviation 54.0 fL (36.4-46.3); Red Blood Count 3.48 M/uL (4.70-6.10); White Blood Count 8.70 K/ul (4.8-10.8)
[2025-11-08 02:55] LABS: Appearance Urine Clear (Clear); Bacteria Urine Automated None Seen (None Seen); Cast Urine Automated 0-2 /lpf (0-2); Epithelial Cell Urine Auto 0-2 /hpf (0-2); Glucose Urine UA Negative (Negative); RBC Urine Automated 0-2 /hpf (0-2); WBC Urine Automated 0-5 /hpf (0-5)
[2025-11-08 03:02] LABS: Alanine Aminotransferase 6.0 U/L (7-52); Albumin Globulin Ratio 0.8 (0.9-2); Albumin Level 3.5 gm/dl (3.4-5.0); Alkaline Phosphatase 74.0 U/L (34-104); Anion Gap 7.0 (3-11); Bilirubin,Total 0.3 mg/dl (0.2-1.0); Blood Urea Nitrogen 78.0 mg/dl (6-23); Calcium 10.5 mg/dl (8.6-10.3); Carbon Dioxide 27.0 mmol/L (21-32); Chloride 105.0 mmol/L (98-107); Creatinine Clr Calc Pharmacy 24.6 ml/min; Globulin 4.5 gm/dl (2.5-4.0); Glucose 91.0 mg/dl (70-99(Fasting)); Potassium 4.3 mmol/L (3.5-5.1); Sodium 139.0 mmol/L (136-145); Total Protein 8.0 gm/dl (6.0-8.3)
[2025-11-08 03:19] LABS: Thyroid Stimulating Hormone 1.831 uIu/ml (0.300-4.500)
--- NOTE | 2025-11-08 04:01 | XRay Report ---
EXAM: XR chest 1V portable CLINICAL HISTORY: Weakness TECHNIQUE: X-ray image of the chest is obtained in AP projection. COMPARISON: Compared to the prior CR study dated 10/13/2025. FINDINGS: Pulmonary Parenchyma: Bilateral lower zonal faint haziness compared to the previously noted patchy opacities. Clear right costophrenic angle compared to an obscured one. Suggested right diaphragmatic hump. The right basal thick atelectatic plate is no longer seen. No evidence of consolidation, collapse, or focal opacities. No pulmonary nodules are identified. No evidence of pleural effusion or pleural thickening. Heart and Mediastinum: Still noted an increased cardiothoracic ratio. Still noted a prominent aortic knob. No mediastinal widening or masses. No hilar or mediastinal lymphadenopathy. Bony Thorax: Bony thorax appears intact without fractures or deformities. Soft Tissues: Soft tissues overlying the chest wall are unremarkable. Multiple ECG leads. IMPRESSION: 1. No acute cardiopulmonary abnormalities are identified. 2. Bilateral lower zonal faint haziness opacities compared to the previously noted patchy opacities. (regression) 3. Clear right costophrenic angle compared to an obscured one. (regression) 4. Still noted an increased cardiothoracic ratio. (stable) 5. The right basal thick atelectatic plate is no longer seen. (regression) Electronically signed by Jason Morales 11-08-2025 04:00 AM
[2025-11-08] MEDS: SODIUM CHLORIDE 0.9% 1,000 ML IV SCH (05:06)
--- NOTE | 2025-11-08 05:44 | History & Physical Report ---
Date of Service November 08, 2025 Assessment & Plan (1) Adult failure to thrive: (2) Acute kidney injury superimposed on CKD: (3) Paroxysmal SVT (supraventricular tachycardia): (4) Parkinsonism: Plan The patient is an 80-year-old male with past medical history including left hip hemiarthroplasty 09-12-2025, CKD, Parkinson's, hypertension, vitamin D deficiency, vitamin B12 deficiency, chronic anemia, oropharyngeal dysphagia, possible Lewy body dementia, depression, tobacco use disorder, anemia of chronic disease, paroxysmal SVT with last episode during admission 10-14-2025. Most recent hospitalization was from 10/14-10/16/2025, where he was treated for aspiration pneumonia, with x-ray this evening compared to that admission much improved. He was also noted to have a long failure to thrive, and it was attempted for patient to be discharged to home health with his at home, however, EMS reports that his is not able to handle taking care of him at home. The patient himself does not communicate at this time, and therefore cannot contribute to HPI or ROS. Acute kidney injury superimposed on CKD- Creatinine 2.13, which is in range at 1.90-2.23. However, BUN is increased significantly to 78. Hold furosemide and Klor-Con He did receive 1 L normal saline bolus from the ED Placed on LR at 80 mL/h x 1 additional liter Repeat laboratories in the a.m. May require additional IV fluids if not able to have good oral intake. Parkinson's/possible Lewy body dementia- Suspect this is progressing as part of his worsening adult FTT. Continue carbidopa-levodopa and aspirin-. Could possibly ask neurology if they have feel an adjustment in medication would be helpful. Paroxysmal SVT/hypertension- Patient had an episode up to 172 at last admission on 10/14/2025. Continue carvedilol IV fluids as noted Peak heart rate in the ED at this time was 91. Aspiration pneumonia/Zenker's diverticulum- Chest x-ray significantly improved compared to last admission. Oxygen saturation is 97% on room air No further treatment indicated at this time Patient does have a very moist cough which sounds that he is potentially aspirating. He reportedly was assessed by speech therapy and found not to be aspirating Would make his liquids nectar thickened. Tobacco use disorder- Continue NicoDerm patch Adult failure to thrive- Patient was most recently admitted from 10/14-10/16/2025 for aspiration pneumonia, which has improved clinically and radiographically. He is brought to the emergency department with report that his is unable to take care of him at home even with home health. When I admitted him at last hospitalization, he appeared to be declining compared to what had been noted in the past. Patient is not responding to me in the emergency department. He looks disheveled, and more gaunt appearing, looks like he has lost weight. He appears dehydrated, and will be placed on IV fluids, Received normal saline 1 L bolus from the ED The patient should be reconsidered for placement in an ECF for ongoing care. History of Present Illness Primary Care Provider: Tina Romo DO The patient is an 80-year-old male with past medical history including left hip hemiarthroplasty 09-12-2025, CKD, Parkinson's, hypertension, vitamin D deficiency, vitamin B12 deficiency, chronic anemia, oropharyngeal dysphagia, possible Lewy body dementia, depression, tobacco use disorder, anemia of chronic disease, paroxysmal SVT with last episode during admission 10-14-2025. Most recent hospitalization was from 10/14-10/16/2025, where he was treated for aspiration pneumonia, with x-ray this evening compared to that admission much improved. He was also noted to have a long failure to thrive, and it was attempted for patient to be discharged to home health with his at home, however, EMS reports that his is not able to handle taking care of him at home. The patient himself does not communicate at this time, and therefore cannot contribute to HPI or ROS. Allergies Allergy/AdvReac Type Severity Reaction Status Date / Time Sulfa (Sulfonamide Allergy Intermediate HIVES Verified 11/08/25 02:27 Antibiotics) Home Medications Medication Instructions Recorded Confirmed Type potassium chloride 20 mEq oral 40 meq PO DAILY #30 ea 06/18/25 11/08/25 Rx packet (Klor-Con) carbidopa 25 mg-levodopa 100 mg 1 tab PO TID #90 tabs 09/01/25 11/08/25 Rx tablet acetaminophen 500 mg tablet 1,000 mg (2 x 500 mg) PO Q8H PRN 09/21/25 11/08/25 Rx (Tylenol Extra Strength) pain #60 tabs ammonium lactate 5 % lotion 1 applic EXT DAILY #226 grams 09/21/25 11/08/25 Rx (Lac-Hydrin Five) nicotine 7 mg/24 hr daily 1 patch transdermal QAM #14 ea 09/21/25 11/08/25 Rx transdermal patch triamcinolone acetonide 0.1 % 1 applic topical BID #80 grams 10/11/25 11/08/25 Rx topical cream Walker 4 point #1 ea 10/21/25 10/21/25 Rx carvedilol 12.5 mg tablet 12.5 mg PO BIDM #180 tabs 10/21/25 11/08/25 Rx carvedilol 3.125 mg tablet 3.125 mg PO BID #180 tabs 10/21/25 11/08/25 Rx ferrous gluconate 324 mg (37.5 mg 324 mg PO DAILY #30 tabs 10/21/25 11/08/25 Rx iron) tablet aspirin 81 mg tablet,delayed 81 mg PO DAILY 11/08/25 11/08/25 History release (Adult Low Dose Aspirin) furosemide 20 mg tablet 20 mg PO DAILY 11/08/25 11/08/25 History Past Med/Surg History Problem List (Updated 11/08/25 @ 05:59 by Clint Golden MD) Acute kidney injury superimposed on CKD Iron deficiency anemia Zenker's (hypopharyngeal) diverticulum Hypoxia (Acute) Acute hypotension (Acute) Bilateral pneumonia (Acute) Paroxysmal supraventricular tachycardia (Acute) Paroxysmal SVT (supraventricular tachycardia) Aspiration pneumonia Status post hip hemiarthroplasty CKD (chronic kidney disease) RAUL (acute kidney injury) Unable to care for self (Acute) Fall (Acute) Closed displaced fracture of left femoral neck (Acute) Hip fracture due to osteoporosis Blurred vision (Acute) Vision changes Elevated troponin (Acute) Acute CHF (Acute) Melena Weight loss Pneumonia due to COVID-19 virus Anemia COVID-19 Asymptomatic hypertensive urgency Fall (Acute) Elevated troponin (Acute) Abnormal ECG (Acute) Hypomagnesemia (Acute) Hypokalemia Stroke-like symptoms Dizziness (Acute) Medical History (Updated 11/08/25 @ 05:59 by Clint Golden MD) Aortic stenosis, mild Vitamin D deficiency B12 deficiency Tobacco use disorder Renal mass Transient cerebral ischemia HTN (hypertension) Crohn's disease History of prostate cancer History of colon cancer Urge incontinence Depression Peripheral neuropathy Adult failure to thrive Generalized weakness Altered mental status CKD (chronic kidney disease), stage III Parkinsonism Chronic renal disease, stage 4, severely decreased glomerular filtration rate (GFR) between 15-29 mL/min/1.73 square meter Bilateral leg edema Elevated brain natriuretic peptide (BNP) level Hypervolemia associated with renal insufficiency Acute diastolic CHF (congestive heart failure) Uncontrolled hypertension Stroke-like symptom Amaurosis fugax of right eye (HFpEF) heart failure with preserved ejection fraction Dementia Aphasia Tremor Surgical History (Updated 09/29/25 @ 14:55 by Roc Palafox PA-C) S/P partial colectomy S/P TURP Family History Daughter Cancer Ovarian cancer Other Hypertension Denies family history of Prostate cancer Myocardial infarction Breast cancer Colorectal cancer Social History Smoking Status: Former smoker Tobacco Type: Cigarettes Age Started Using Tobacco: 76; Age Quit Using Tobacco: 80; packs per day: 0.50; Cigarettes Per Day: 10; Second Hand Exposure: No; Do You Dip or Chew Tobacco: No; Hx Alcohol Use: No Hx Substance Use: No Preferred Language: Palauan Communication Ability: Effective Visual Impairment: No Limitations Hearing Ability: Normal Hogshead Opener Required: No Beliefs That Will Affect Care: None marital status: Current Living Situation: Spouse Current Living Situation Comment: lives at home with current occupational status: retired Feels Safe at Home: Yes Childhood Exposure to Second-Hand Smoke: Yes Diet: regular caffeine: Yes (1 coffee 1 pepsi daily) Dental Care, Regularly: No Physical Activity Frequency: Does not Exercise Seatbelt Use: always Sunscreen Use: No Do you think of yourself as: straight/heterosexual Gender Identity: Male Assistive Devices: Cane and Walker Review of Systems Review of Systems: As noted, patient is unable to contribute HPI or ROS, and information is gathered from EMS notations, ED notations, and previous admission of 10/14- 10/16/2025. Physical Exam Physical Exam: The patient is awake, not responding to questions, disheveled and gaunt appearing, normocephalic and atraumatic, otherwise lying in bed and in no acute distress. Audible aspiration with coughing HEENT--PERRL, EOMI, mucous membranes and oropharynx mildly to moderately dry. Neck--supple. No JVD. No bruits. Thyroid normal, trachea midline, no adenopathy. Heart--mildly tachycardic, otherwise normal S1 and S2. No murmurs, rubs or gallops. Lungs--coarse breath sounds bilaterally. No respiratory distress, no accessory muscle use. Abdomen--normal bowel sounds and soft. Nontender. Nondistended, no hernias or masses, no organomegaly. Extremities--No edema. Dermatologic--skin is dry and mildly xerotic Neurologic--cranial nerves II through XII grossly intact. Rheumatologic--limited exam due to inability to follow commands Psychiatric--flat affect Results & Data Results & Data Vital Signs (Past 12 Hours) Vital Signs Temp Pulse Pulse Resp BP BP Pulse Ox 11/08/25 03:26 86 17 171/107 H 95 11/08/25 02:41 97 11/08/25 02:00 87 18 158/103 H 98 11/08/25 02:00 98 11/08/25 01:49 91 H 11/08/25 01:49 36.6 C 89 18 186/116 H 97 O2 Del Method 11/08/25 03:26 Room Air 11/08/25 02:41 Room Air 11/08/25 02:00 Room Air 11/08/25 02:00 Room Air 11/08/25 01:49 11/08/25 01:49 Room Air Laboratory Results Laboratory Results WBC 8.70 K/ul (4.8-10.8) 11/08/25 01:56 RBC 3.48 M/uL (4.70-6.10) L 11/08/25 01:56 Hgb 10.2 g/dL (14.0-18.0) L 11/08/25 01:56 Hct 32.1 % (42.0-52.0) L 11/08/25 01:56 MCV 92.2 fL (80.0-100.0) 11/08/25 01:56 MCH 29.3 pg (25.0-34.0) 11/08/25 01:56 MCHC 31.8 g/dL (32.0-36.0) L 11/08/25 01:56 RDW Std Deviation 54.0 fL (36.4-46.3) H 11/08/25 01:56 RDW Coeff of Ruiz 16.3 % (11.5-14.5) H 11/08/25 01:56 Plt Count 320 K/uL (130-400) 11/08/25 01:56 MPV 10.6 fL (9.4-12.4) 11/08/25 01:56 Immature Gran % (Auto) 0.2 % 11/08/25 01:56 Neut % (Auto) 75.1 % 11/08/25 01:56 Lymph % (Auto) 13.3 % 11/08/25 01:56 Pike % (Auto) 8.2 % 11/08/25 01:56 Eos % (Auto) 2.4 % 11/08/25 01:56 Baso % (Auto) 0.8 % 11/08/25 01:56 Neut # (Auto) 6.53 K/uL (1.40-6.50) H 11/08/25 01:56 Lymph # (Auto) 1.16 K/uL (1.20-3.40) L 11/08/25 01:56 Pike # (Auto) 0.71 K/uL (0.11-0.59) H 11/08/25 01:56 Eos # (Auto) 0.21 K/uL (0.00-0.50) 11/08/25 01:56 Baso # (Auto) 0.07 K/uL (0.00-0.20) 11/08/25 01:56 Immature Gran # (Auto) 0.02 K/uL (0.01-0.20) 11/08/25 01:56 Sodium 139 mmol/L (136-145) 11/08/25 01:56 Potassium 4.3 mmol/L (3.5-5.1) 11/08/25 01:56 Chloride 105 mmol/L (98-107) 11/08/25 01:56 Carbon Dioxide 27 mmol/L (21-32) 11/08/25 01:56 Anion Gap 7 (3-11) 11/08/25 01:56 BUN 78 mg/dl (6-23) H 11/08/25 01:56 Creatinine 2.13 mg/dl (0.6-1.4) H 11/08/25 01:56 Est Cr Clr Drug Dosing 24.6 ml/min 11/08/25 01:56 eGFR 30.33 11/08/25 01:56 BUN/Creatinine Ratio 36.6 (10-20) H 11/08/25 01:56 Glucose 91 mg/dl (70-99(Fasting)) 11/08/25 01:56 POC Glucose 76 mg/dl (70-99) 11/08/25 01:56 Calcium 10.5 mg/dl (8.6-10.3) H 11/08/25 01:56 Total Bilirubin 0.3 mg/dl (0.2-1.0) 11/08/25 01:56 AST 11 U/L (13-39) L 11/08/25 01:56 ALT 6 U/L (7-52) L 11/08/25 01:56 Alkaline Phosphatase 74 U/L (34-104) 11/08/25 01:56 Total Protein 8.0 gm/dl (6.0-8.3) 11/08/25 01:56 Albumin 3.5 gm/dl (3.4-5.0) 11/08/25 01:56 Globulin 4.5 gm/dl (2.5-4.0) H 11/08/25 01:56 Albumin/Globulin Ratio 0.8 (0.9-2) L 11/08/25 01:56 TSH 1.831 uIu/ml (0.300-4.500) 11/08/25 01:56 Urine Color Yellow 11/08/25 02:33 Urine Appearance Clear (Clear) 11/08/25 02:33 Urine pH 7.0 (4.5-7.5) 11/08/25 02:33 Ur Specific [place] 1.012 (1.000-1.030) 11/08/25 02:33 Urine Protein 1+ (Negative) H 11/08/25 02:33 Urine Glucose (UA) Negative (Negative) 11/08/25 02:33 Urine Ketones Negative (Negative) 11/08/25 02:33 Urine Blood Negative (Negative) 11/08/25 02:33 Urine Nitrite Negative (Negative) 11/08/25 02:33 Urine Bilirubin Negative (Negative) 11/08/25 02:33 Urine Urobilinogen Negative (Negative) 11/08/25 02:33 Ur Leukocyte Esterase Negative (Negative) 11/08/25 02:33 Urine WBC (Auto) 0-5 /hpf (0-5) 11/08/25 02:33 Urine RBC (Auto) 0-2 /hpf (0-2) 11/08/25 02:33 U Hyaline Cast (Auto) 0-2 /lpf (0-2) 11/08/25 02:33 U Epithel Cells (Auto) 0-2 /hpf (0-2) 11/08/25 02:33 Urine Bacteria (Auto) None Seen (None Seen) 11/08/25 02:33 Urine Comment 11/08/25 02:33 Impressions Chest X-Ray 11/08/25 02:39 EXAM: XR chest 1V portable CLINICAL HISTORY: Weakness TECHNIQUE: X-ray image of the chest is obtained in AP projection. COMPARISON: Compared to the prior CR study dated 10/13/2025. FINDINGS: Pulmonary Parenchyma: Bilateral lower zonal faint haziness compared to the previously noted patchy opacities. Clear right costophrenic angle compared to an obscured one. Suggested right diaphragmatic hump. The right basal thick atelectatic plate is no longer seen. No evidence of consolidation, collapse, or focal opacities. No pulmonary nodules are identified. No evidence of pleural effusion or pleural thickening. Heart and Mediastinum: Still noted an increased cardiothoracic ratio. Still noted a prominent aortic knob. No mediastinal widening or masses. No hilar or mediastinal lymphadenopathy. Bony Thorax: Bony thorax appears intact without fractures or deformities. Soft Tissues: Soft tissues overlying the chest wall are unremarkable. Multiple ECG leads. IMPRESSION: 1. No acute cardiopulmonary abnormalities are identified. 2. Bilateral lower zonal faint haziness opacities compared to the previously noted patchy opacities. (regression) 3. Clear right costophrenic angle compared to an obscured one. (regression) 4. Still noted an increased cardiothoracic ratio. (stable) 5. The right basal thick atelectatic plate is no longer seen. (regression) Electronically signed by Jason Morales 11-08-2025 04:00 AM Code Status & VTE Plan Code Status DNR/DNI VTE Prophylaxis Plan VTE Prophylaxis will be ordered: Yes PG Care Time/CCT Total # of Minutes Spent Total Time Spent with Patient: Total time spent is greater than 50% in coordination of care (as documented) at patient's floor/unit and/or counseling patient: Coding Level of Care Code 81871 INT INP/OBS CARE MIN Diagnoses Adult failure to thrive R62.7 Acute kidney injury superimposed on CKD N17.9; N18.9 Paroxysmal SVT (supraventricular tachycardia) I47.10 Parkinsonism G20
[2025-11-08] MEDS: LACTATED RINGER'S 1,000 ML IV SCH (06:46)
[2025-11-08] MEDS ORDERED: ALBUT/IPRATROP 3MG/0.5MG NEB 3 ML VIAL NEB PRN (09:34)
[2025-11-08] MEDS ORDERED: ONDANSETRON INJ 2 MG/ML 2 ML VIAL IV PRN (09:34)
[2025-11-08] MEDS: AMMONIUM LACTATE 12% LOTION 225 GM BTL EXT SCH (10:56)
[2025-11-08] MEDS: TRIAMCINOLONE ACET 0.1% CR 15 GM TUBE TOP SCH (10:56)
[2025-11-08] MEDS: NICOTINE 14 MG/24 HR PATCH TD SCH (10:57)
[2025-11-08] MEDS: CARBIDOPA/LEVODOPA 25/100MG TAB PO SCH (10:58)
[2025-11-08] MEDS: ASPIRIN 81 MG ECTAB PO SCH (10:58)
[2025-11-08] MEDS: REMOVE NICODERM PATCH SCH (11:54)
--- NOTE | 2025-11-08 17:41 | Hospitalist Progress Note ---
Date of Service November 08, 2025 Assessment & Plan (1) Adult failure to thrive: Plan: Supportive care. OT and PT evaluations have been requested. Long-term placement is anticipated at discharge (2) Acute kidney injury superimposed on CKD: Plan: Lasix and potassium are on hold. IV fluids. Serial labs. Monitor urine output (3) Paroxysmal SVT (supraventricular tachycardia): Plan: Currently stable. Telemetry. Continue carvedilol (4) Parkinsonism: Plan: Currently stable. Continue Sinemet. Plan Anticipate eventual long-term care placement when arrangements are finalized Admission and Anticipated Discharge Date Admission Date: November 08, 2025 Subjective Alert and oriented. No new problems. He was recently hospitalized and discharged to his home with home health services on October 16. This has failed since his is unable to care for him. He was readmitted on November 08 and will need long-term placement. OT and PT assessments have been requested. Lasix and potassium are on hold. He is receiving IV fluids currently. Review of Systems 2 Review of Systems: Constitutionalno fever or chills ENTno blurred vision, no double vision, no epistaxis, no sore throat Respiratoryno cough, no wheezing, no shortness of breath Cardiacno palpitations, no chest pain, no syncope Madelin nausea, vomiting, diarrhea, melena, hematochezia GUno urinary retention, no urinary incontinence, no dysuria, no hematuria Musculoskeletalno joint pain, no muscle tenderness Skinno bruising, no rashes, no pruritus Neurono isolated weakness, no paresthesia, no weakness Psychno depression, no anxiety Physical Exam 2 Physical Exam: General-alert and oriented x3, no fever, no chills HEENT-head atraumatic and normocephalic, pupils equal and reactive to light, extraocular muscles intact Neck-no lymphadenopathy or thyromegaly, trachea midline Chest-clear to auscultation. No rales, wheezing or rhonchi Cardiac-regular rate and rhythm, normal S1 and S2 Abdomen-normal bowel sounds, no hepatosplenomegaly Extremities-no cyanosis, clubbing, or edema Neuro-cranial nerves II through XII intact, motor and sensory function within normal limits, strength symmetrical, no focal deficits Psych-normal affect, normal mood Results & Data Results & Data Vital Signs (Past 12 Hours) Vital Signs Temp Pulse Pulse Resp BP Pulse Ox O2 Del Method 11/08/25 16:18 Room Air 11/08/25 16:03 36.7 C 87 20 176/107 H 96 Room Air 11/08/25 13:50 82 20 165/98 H 96 Room Air 11/08/25 11:00 96 H 18 196/110 H 98 Room Air 11/08/25 07:00 98 H 20 170/102 H 94 Room Air 11/08/25 05:43 90 Laboratory Results 11/08/25 01:56 11/08/25 01:56 PG Care Time/CCT Total # of Minutes Spent Total Time Spent with Patient: Total time spent is greater than 50% in coordination of care (as documented) at patient's floor/unit and/or counseling patient: Coding Level of Care Code 55082 SUB INP/OBS CARE 3/50MIN Diagnoses Adult failure to thrive R62.7 Acute kidney injury superimposed on CKD N17.9; N18.9 Paroxysmal SVT (supraventricular tachycardia) I47.10 Parkinsonism G20
[2025-11-09 06:27] LABS: Hematocrit (blood only) 32.3 % (42.0-52.0); Hemoglobin 10.2 g/dL (14.0-18.0); Immature Granulocytes # (auto) 0.01 K/uL (0.01-0.20); Immature Granulocytes % (auto) 0.2 %; Mean Corpuscular Hemoglobin 28.4 pg (25.0-34.0); Mean Corpuscular Volume 90.0 fL (80.0-100.0); Platelet Count 305 K/uL (130-400); RDW Standard Deviation 51.5 fL (36.4-46.3); Red Blood Count 3.59 M/uL (4.70-6.10); White Blood Count 6.18 K/ul (4.8-10.8)
[2025-11-09 07:13] LABS: Anion Gap 7.0 (3-11); Blood Urea Nitrogen 54.0 mg/dl (6-23); Calcium 10.2 mg/dl (8.6-10.3); Carbon Dioxide 24.0 mmol/L (21-32); Chloride 112.0 mmol/L (98-107); Creatinine Clr Calc Pharmacy 30.0 ml/min; Glucose 69.0 mg/dl (70-99(Fasting)); Potassium 3.8 mmol/L (3.5-5.1); Sodium 143.0 mmol/L (136-145)
[2025-11-09] MEDS: FERROUS GLUCONATE 324 MG TAB PO SCH (09:05)
--- NOTE | 2025-11-09 12:06 | Hospitalist Progress Note ---
Date of Service November 09, 2025 Assessment & Plan (1) Adult failure to thrive: Plan: Supportive care. Continue OT and PT while hospitalized. Long-term placement is anticipated at discharge (2) Acute kidney injury superimposed on CKD: Plan: Lasix and potassium remain on hold. IV fluids have been discontinued. Serial labs. Monitor urine output (3) Paroxysmal SVT (supraventricular tachycardia): Plan: Currently stable. Telemetry. Continue carvedilol (4) Parkinsonism: Plan: Currently stable. Continue Sinemet. (5) HTN (hypertension): Plan: Amlodipine added today, November 09, for better blood pressure control. Will follow Plan Anticipate eventual long-term care placement when arrangements are finalized Admission and Anticipated Discharge Date Admission Date: November 08, 2025 Subjective Awake and alert. No distress. IV fluids have been discontinued. Lasix and oral potassium remain on hold. Amlodipine 5 mg daily started for better blood pressure control. Placement is pending Review of Systems 2 Review of Systems: Constitutionalno fever or chills ENTno blurred vision, no double vision, no epistaxis, no sore throat Respiratoryno cough, no wheezing, no shortness of breath Cardiacno palpitations, no chest pain, no syncope Madelin nausea, vomiting, diarrhea, melena, hematochezia GUno urinary retention, no urinary incontinence, no dysuria, no hematuria Musculoskeletalno joint pain, no muscle tenderness Skinno bruising, no rashes, no pruritus Neurono isolated weakness, no paresthesia, no weakness Psychno depression, no anxiety Physical Exam 2 Physical Exam: General-alert and oriented x3, no fever, no chills HEENT-head atraumatic and normocephalic, pupils equal and reactive to light, extraocular muscles intact Neck-no lymphadenopathy or thyromegaly, trachea midline Chest-clear to auscultation. No rales, wheezing or rhonchi Cardiac-regular rate and rhythm, normal S1 and S2 Abdomen-normal bowel sounds, no hepatosplenomegaly Extremities-no cyanosis, clubbing, or edema Neuro-cranial nerves II through XII intact, motor and sensory function within normal limits, strength symmetrical, no focal deficits Psych-normal affect, normal mood Results & Data Results & Data Vital Signs (Past 12 Hours) Vital Signs Temp Pulse Resp BP Pulse Ox O2 Del Method 11/09/25 11:34 36.7 C 73 23 133/73 90 Room Air 11/09/25 07:11 36.7 C 85 23 186/104 H 96 Room Air 11/09/25 03:15 36.7 C 86 16 180/94 H 94 Room Air Laboratory Results 11/09/25 05:49 11/09/25 05:49 PG Care Time/CCT Total # of Minutes Spent Total Time Spent with Patient: Total time spent is greater than 50% in coordination of care (as documented) at patient's floor/unit and/or counseling patient: Coding Level of Care Code 80302 SUB INP/OBS CARE 3/50MIN Diagnoses Adult failure to thrive R62.7 Acute kidney injury superimposed on CKD N17.9; N18.9 Paroxysmal SVT (supraventricular tachycardia) I47.10 Parkinsonism G20 HTN (hypertension) I10
--- NOTE | 2025-11-09 15:47 | Emergency Department Note ---
Impression & Plan Dehydration, RAUL (acute kidney injury), Weakness Admit to the hospitalist ED Provider Note NAME: MAGALY SMITH AGE: 80 SEX: Male INFORMANT: Patient ED PROVIDER(S): Venus Moreno DO CHIEF COMPLAINT: increased weakness and confusion PLAN: Disposition: admit to the hospitalist MEDICAL DECISION MAKING: this is an 80-year-old male patient who lives at home with his . He has baseline cognitive impairment but he has had increased confusion over the past 2 to 3 days. His has noticed increased weakness and increased urination. She called for EMS. On presentation, the patient was hypertensive and quite lethargic. Laboratory studies revealed no leukocytosis or anemia. BUN was 78 and creatinine was 2.13. BUN/creatinine ratio was 36.3. Urinalysis showed no significant signs of infection. On physical exam, the patient was extremely dehydrated with dry mucous membranes. He was bolused with IV normal saline solution. He would open his eyes to loud verbal stimuli but would only intermittently follow instructions. Patient's told EMS she had concerns about caring for him at home. I discussed the case with the hospitalist and they will evaluate for further inpatient care. Care/management discussed with: medical office manager and hospitalist Triage Nursing notes: reviewed and agree with them. Vital Signs: reviewed and remarkable for hypertension Additional History obtained from: EMS Prior/ Outside/ External records reviewed: I did review primary care notes and inpatient notes from October of this year Differential Diagnosis: UTI, dehydration, hyponatremia, hyperglycemia, ambulatory dysfunction, RAUL Diagnostics, independently interpreted by me: ECG: normal sinus rhythm at a rate of 89 with PACs. There is no ST segment elevation or signs of ischemia. There was significant ST segment depression in the inferior leads as well as the lateral leads. This is unchanged from EKGs done previously in October of this year. Cardiac Monitoring: Normal sinus rhythm at a rate of 90 Imaging studies: portable chest x-ray: No acute or new abnormalities according to [facility] HPI: 80 year old Male arrives for evaluation of increased weakness and confusion. patient who lives at home with his . He has baseline cognitive impairment but he has had increased confusion over the past 2 to 3 days. His has noticed increased weakness and increased urination. PAST MEDICAL HISTORY: See Below, PAST SURGICAL HISTORY: See Below, SOCIAL HISTORY: patient lives with his at home HOME MEDICATIONS: See Below ALLERGIES: See Below VITALS: See Below PHYSICAL EXAMINATION: HEENT: Head - normocephalic and atraumatic. Pupils are equal, round, and reactive to light. Extraocular eye muscles are intact, and sclera are anicteric. Nose - drynasal mucosa without discharge. Mouth - extremely dry buccal mucosa. Oropharynx is nonerythematous and there is no tonsillar exudate or edema noted. Neck: Supple; no Cervical lymphadenopathy or nuchal rigidity Heart: Regular rate and rhythm. There is a normal S1 and S2 with no murmurs, clicks, or gallops appreciated. Lungs: Clear to auscultation bilaterally with no wheezes, rales, or rhonchi. Abdomen: Soft, completely nontender, nondistended, with good bowel sounds. There are no palpable pulsatile masses or hepatosplenomegaly. There is no guarding, rigidity, or rebound noted. Extremities: No evidence of cyanosis, clubbing, or edema. There are easily palpable peripheral pulses. Skin: warm and dry with poor turgor and no rashes. emergency department treatment: conveyor monitor, IV normal saline bolus Emergency Department course: Patient was evaluated in room B-9. A complete history and physical was performed. Order was placed for continuous cardiac monitoring. The patient was in a normal sinus rhythm at a rate of 90. Twelve- lead EKG was obtained as described above. Urine specimen was obtained. Portable chest x-ray was performed. The patient was bolused with normal saline solution. Patient was offered something to drink but declined. I discussed the case with the medical office manager and the patient will be admitted to the hospitalist. Past Med/Surg History Problem List (Updated 11/09/25 @ 15:47 by Venus Moreno DO) Weakness (Acute) RAUL (acute kidney injury) (Acute) Dehydration (Acute) Acute kidney injury superimposed on CKD Iron deficiency anemia Zenker's (hypopharyngeal) diverticulum Hypoxia (Acute) Acute hypotension (Acute) Bilateral pneumonia (Acute) Paroxysmal supraventricular tachycardia (Acute) Paroxysmal SVT (supraventricular tachycardia) Aspiration pneumonia Status post hip hemiarthroplasty CKD (chronic kidney disease) RAUL (acute kidney injury) Unable to care for self (Acute) Fall (Acute) Closed displaced fracture of left femoral neck (Acute) Hip fracture due to osteoporosis Blurred vision (Acute) Vision changes Elevated troponin (Acute) Acute CHF (Acute) Melena Weight loss Pneumonia due to COVID-19 virus Anemia COVID-19 Asymptomatic hypertensive urgency Fall (Acute) Elevated troponin (Acute) Abnormal ECG (Acute) Hypomagnesemia (Acute) Hypokalemia Stroke-like symptoms Dizziness (Acute) Medical History (Updated 11/09/25 @ 15:47 by Venus Moreno DO) Aortic stenosis, mild Vitamin D deficiency B12 deficiency Tobacco use disorder Renal mass Transient cerebral ischemia HTN (hypertension) Crohn's disease History of prostate cancer History of colon cancer Urge incontinence Depression Peripheral neuropathy Adult failure to thrive Generalized weakness Altered mental status CKD (chronic kidney disease), stage III Parkinsonism Chronic renal disease, stage 4, severely decreased glomerular filtration rate (GFR) between 15-29 mL/min/1.73 square meter Bilateral leg edema Elevated brain natriuretic peptide (BNP) level Hypervolemia associated with renal insufficiency Acute diastolic CHF (congestive heart failure) Uncontrolled hypertension Stroke-like symptom Amaurosis fugax of right eye (HFpEF) heart failure with preserved ejection fraction Dementia Aphasia Tremor Surgical History (Updated 09/29/25 @ 14:55 by Roc Palafox PA-C) S/P partial colectomy S/P TURP Family History Daughter Cancer Ovarian cancer Other Hypertension Denies family history of Prostate cancer Myocardial infarction Breast cancer Colorectal cancer Social History Smoking Status: Former smoker Tobacco Type: Cigarettes Age Started Using Tobacco: 76; Age Quit Using Tobacco: 80; packs per day: 0.50; Cigarettes Per Day: 10; Second Hand Exposure: No; Do You Dip or Chew Tobacco: No; Hx Alcohol Use: No Hx Substance Use: No Preferred Language: Monegasque Communication Ability: Impaired Visual Impairment: No Limitations Hearing Ability: Normal Marketing Development Manager Required: No Beliefs That Will Affect Care: None marital status: Current Living Situation: Spouse Current Living Situation Comment: lives at home with current occupational status: retired Other Information That Helps Us Care for You: No Feels Safe at Home: Yes Safety Concerns: Feels Safe At This Time Childhood Exposure to Second-Hand Smoke: Yes Diet: regular caffeine: Yes (1 coffee 1 pepsi daily) Dental Care, Regularly: No Physical Activity Frequency: Does not Exercise Seatbelt Use: always Sunscreen Use: No Do you think of yourself as: straight/heterosexual Gender Identity: Male Assistive Devices: Cane and Walker Allergies Allergies Allergy/AdvReac Type Severity Reaction Status Date / Time Sulfa (Sulfonamide Allergy Intermediate HIVES Verified 11/08/25 02:27 Antibiotics) Home Meds Home Medications Medication Instructions Recorded Confirmed aspirin 81 mg tablet,delayed 81 mg PO DAILY 11/08/25 11/08/25 release (Adult Low Dose Aspirin) furosemide 20 mg tablet 20 mg PO DAILY 11/08/25 11/08/25 Previous Rx's Medication Instructions Recorded potassium chloride 20 mEq oral 40 meq PO DAILY #30 ea 06/18/25 packet (Klor-Con) carbidopa 25 mg-levodopa 100 mg 1 tab PO TID #90 tabs 09/01/25 tablet acetaminophen 500 mg tablet 1,000 mg (2 x 500 mg) PO Q8H PRN 09/21/25 (Tylenol Extra Strength) pain #60 tabs ammonium lactate 5 % lotion 1 applic EXT DAILY #226 grams 09/21/25 (Lac-Hydrin Five) nicotine 7 mg/24 hr daily 1 patch transdermal QAM #14 ea 09/21/25 transdermal patch triamcinolone acetonide 0.1 % 1 applic topical BID #80 grams 10/11/25 topical cream Walker 4 point #1 ea 10/21/25 carvedilol 12.5 mg tablet 12.5 mg PO BIDM #180 tabs 10/21/25 carvedilol 3.125 mg tablet 3.125 mg PO BID #180 tabs 10/21/25 ferrous gluconate 324 mg (37.5 mg 324 mg PO DAILY #30 tabs 10/21/25 iron) tablet Results & Data (ED) Laboratory Data 11/09/25 05:49 11/09/25 05:49 Lab Results 11/08/25 11/08/25 Range/Units 01:56 02:33 WBC 8.70 (4.8-10.8) K/ul RBC 3.48 L (4.70-6.10) M/uL Hgb 10.2 L (14.0-18.0) g/dL Hct 32.1 L (42.0-52.0) % MCV 92.2 (80.0-100.0) fL MCH 29.3 (25.0-34.0) pg MCHC 31.8 L (32.0-36.0) g/dL RDW Std Deviation 54.0 H (36.4-46.3) fL RDW Coeff of Ruiz 16.3 H (11.5-14.5) % Plt Count 320 (130-400) K/uL MPV 10.6 (9.4-12.4) fL Immature Gran % (Auto) 0.2 % Neut % (Auto) 75.1 % Lymph % (Auto) 13.3 % Green % (Auto) 8.2 % Eos % (Auto) 2.4 % Baso % (Auto) 0.8 % Neut # (Auto) 6.53 H (1.40-6.50) K/uL Lymph # (Auto) 1.16 L (1.20-3.40) K/uL Green # (Auto) 0.71 H (0.11-0.59) K/uL Eos # (Auto) 0.21 (0.00-0.50) K/uL Baso # (Auto) 0.07 (0.00-0.20) K/uL Immature Gran # (Auto) 0.02 (0.01-0.20) K/uL Sodium 139 (136-145) mmol/L Potassium 4.3 (3.5-5.1) mmol/L Chloride 105 (98-107) mmol/L Carbon Dioxide 27 (21-32) mmol/L Anion Gap 7 (3-11) BUN 78 H (6-23) mg/dl Creatinine 2.13 H (0.6-1.4) mg/dl Est Cr Clr Drug Dosing 24.6 ml/min eGFR 30.33 BUN/Creatinine Ratio 36.6 H (10-20) Glucose 91 (70-99(Fasting)) mg/dl POC Glucose 76 (70-99) mg/dl Calcium 10.5 H (8.6-10.3) mg/dl Total Bilirubin 0.3 (0.2-1.0) mg/dl AST 11 L (13-39) U/L ALT 6 L (7-52) U/L Alkaline Phosphatase 74 (34-104) U/L Total Protein 8.0 (6.0-8.3) gm/dl Albumin 3.5 (3.4-5.0) gm/dl Globulin 4.5 H (2.5-4.0) gm/dl Albumin/Globulin Ratio 0.8 L (0.9-2) TSH 1.831 (0.300-4.500) uIu/ml Urine Color Yellow Urine Appearance Clear (Clear) Urine pH 7.0 (4.5-7.5) Ur Specific [place] 1.012 (1.000-1.030) Urine Protein 1+ H (Negative) Urine Glucose (UA) Negative (Negative) Urine Ketones Negative (Negative) Urine Blood Negative (Negative) Urine Nitrite Negative (Negative) Urine Bilirubin Negative (Negative) Urine Urobilinogen Negative (Negative) Ur Leukocyte Esterase Negative (Negative) Urine WBC (Auto) 0-5 (0-5) /hpf Urine RBC (Auto) 0-2 (0-2) /hpf U Hyaline Cast (Auto) 0-2 (0-2) /lpf U Epithel Cells (Auto) 0-2 (0-2) /hpf Urine Bacteria (Auto) None Seen (None Seen) Urine Comment Administered Medications Amlodipine Besylate (Amlodipine Besylate 5 Mg Tab) 5 mg PO QAM [facility] Stop: 12/09/25 09:54 Last Admin: 11/09/25 10:21 Dose: 5 mg Documented By: SAROJ Aspirin (Aspirin 81 Mg Ectab) 81 mg PO DAILY [facility] Stop: 12/08/25 09:33 Last Admin: 11/09/25 09:05 Dose: 81 mg Documented By: Admin: 11/08/25 10:58 Dose: 81 mg Documented By: TONAWANDA Carbidopa/Levodopa (Carbidopa/Levodopa 25/100mg Tab) 1 tab PO TID [facility] Stop: 12/08/25 09:33 Last Admin: 11/09/25 15:21 Dose: 1 tab Documented By: Admin: 11/09/25 09:05 Dose: 1 tab Documented By: Admin: 11/08/25 20:08 Dose: 1 tab Documented By: Admin: 11/08/25 15:51 Dose: 1 tab Documented By: Admin: 11/08/25 10:58 Dose: 1 tab Documented By: TONAWANDA Carvedilol (Carvedilol 3.125 Mg Tab) 3.125 mg PO BIDM [facility] Stop: 12/08/25 09:33 Last Admin: 11/09/25 09:05 Dose: 3.125 mg Documented By: Admin: 11/08/25 15:50 Dose: 3.125 mg Documented By: Admin: 11/08/25 10:58 Dose: 3.125 mg Documented By: TONAWANDA Carvedilol (Carvedilol 12.5 Mg Tab) 12.5 mg PO BIDM [facility] Stop: 12/08/25 09:33 Last Admin: 11/09/25 09:05 Dose: 12.5 mg Documented By: Admin: 11/08/25 15:51 Dose: 12.5 mg Documented By: Admin: 11/08/25 10:58 Dose: 12.5 mg Documented By: TONAWANDA Ferrous Gluconate (Ferrous Gluconate 324 Mg Tab) 324 mg PO DAILY [facility] Stop: 12/09/25 08:59 Last Admin: 11/09/25 09:05 Dose: 324 mg Documented By: SAROJ Lactic Acid (Ammonium Lactate 12% Lotion 225 Gm Btl) 1 gm EXT DAILY [facility] Stop: 12/08/25 09:33 Last Admin: 11/09/25 09:05 Dose: 1 gm Documented By: Admin: 11/08/25 10:56 Dose: 1 gm Documented By: TONAWANDA Miscellaneous (Remove Nicoderm Patch) 1 each N/A DAILY@0859 [facility] Stop: 12/08/25 09:33 Last Admin: 11/09/25 09:06 Dose: 1 each Documented By: Admin: 11/08/25 11:54 Dose: Not Given Documented By: TONAWANDA Nicotine (Nicotine 14 Mg/24 Hr Patch) 1 patch TD QAM [facility] Stop: 12/08/25 09:33 Last Admin: 11/09/25 09:06 Dose: 1 patch Documented By: Admin: 11/08/25 10:57 Dose: 1 patch Documented By: TONAWANDA Triamcinolone Acetonide (Triamcinolone Acet 0.1% Cr 15 Gm Tube) 1 appln TOP BID [facility] Stop: 12/08/25 09:33 Last Admin: 11/09/25 09:06 Dose: 1 appln Documented By: Admin: 11/08/25 20:09 Dose: 1 appln Documented By: Admin: 11/08/25 10:56 Dose: 1 appln Documented By: TONAWANDA Discontinued Medications Hydralazine HCl (Hydralazine Hcl 20 Mg/Ml Vial) 10 mg IV NOW STA Stop: 11/08/25 18:20 Last Admin: 11/08/25 18:32 Dose: 10 mg Documented By: DTT Sodium Chloride (Nss) 1,000 mls @ 999 mls/hr IV .[id number] PETER Stop: 11/08/25 06:06 Last Infusion: 11/08/25 07:00 Dose: Infused Documented By: Admin: 11/08/25 05:06 Dose: 999 mls/hr Documented By: PAG Lactated Ringer's (Lr) 1,000 mls @ 80 mls/hr IV .[id number] PETER Stop: 11/08/25 18:14 Last Infusion: 11/08/25 18:22 Dose: Infused Documented By: Admin: 11/08/25 06:46 Dose: 80 mls/hr Documented By: LAF Discharge Plan Visit Data Chief Complaint: Weakness Stated Complaint: WEAKNESS x2days ED Provider: Venus Moreno Discharge Problem: Dehydration, RAUL (acute kidney injury), Weakness Patient Disposition: Admitted As Inpatient Condition: Fair Discharge Instructions Interventions: ED Discharge Assessment Last Done: 11/08/25 14:30
[2025-11-10 06:24] LABS: Hematocrit (blood only) 27.7 % (42.0-52.0); Hemoglobin 8.8 g/dL (14.0-18.0); Immature Granulocytes # (auto) 0.02 K/uL (0.01-0.20); Immature Granulocytes % (auto) 0.3 %; Mean Corpuscular Hemoglobin 28.8 pg (25.0-34.0); Mean Corpuscular Volume 90.5 fL (80.0-100.0); Platelet Count 276 K/uL (130-400); RDW Standard Deviation 53.1 fL (36.4-46.3); Red Blood Count 3.06 M/uL (4.70-6.10); White Blood Count 7.03 K/ul (4.8-10.8)
[2025-11-10 06:51] LABS: Anion Gap 7.0 (3-11); Blood Urea Nitrogen 53.0 mg/dl (6-23); Calcium 9.6 mg/dl (8.6-10.3); Carbon Dioxide 24.0 mmol/L (21-32); Chloride 110.0 mmol/L (98-107); Creatinine Clr Calc Pharmacy 26.5 ml/min; Glucose 96.0 mg/dl (70-99(Fasting)); Potassium 4.1 mmol/L (3.5-5.1); Sodium 141.0 mmol/L (136-145)
--- NOTE | 2025-11-10 14:46 | Hospitalist Progress Note ---
Date of Service November 10, 2025 Assessment & Plan (1) Adult failure to thrive: Plan: Supportive care. Continue OT and PT while hospitalized. Long-term placement is anticipated at discharge (2) Acute kidney injury superimposed on CKD: Plan: Lasix and potassium remain on hold. IV fluids have been discontinued. Serial labs. Monitor urine output (3) Paroxysmal SVT (supraventricular tachycardia): Plan: Currently stable. Telemetry. Continue carvedilol (4) Parkinsonism: Plan: Currently stable. Continue Sinemet. (5) HTN (hypertension): Plan: Amlodipine added to carvedilol on November 09. Blood pressure appears to be much better now. Will follow Plan Anticipate eventual long-term care placement when arrangements are finalized Admission and Anticipated Discharge Date Admission Date: November 08, 2025 Subjective Alert and oriented. No new problems. Will transfer to [facility] without telemetry since he is stable. Blood pressure is much better after addition of amlodipine to his previously taken Coreg. Review of Systems 2 Review of Systems: Constitutionalno fever or chills ENTno blurred vision, no double vision, no epistaxis, no sore throat Respiratoryno cough, no wheezing, no shortness of breath Cardiacno palpitations, no chest pain, no syncope Madelin nausea, vomiting, diarrhea, melena, hematochezia GUno urinary retention, no urinary incontinence, no dysuria, no hematuria Musculoskeletalno joint pain, no muscle tenderness Skinno bruising, no rashes, no pruritus Neurono isolated weakness, no paresthesia, no weakness Psychno depression, no anxiety Physical Exam 2 Physical Exam: General-alert and oriented x3, no fever, no chills HEENT-head atraumatic and normocephalic, pupils equal and reactive to light, extraocular muscles intact Neck-no lymphadenopathy or thyromegaly, trachea midline Chest-clear to auscultation. No rales, wheezing or rhonchi Cardiac-regular rate and rhythm, normal S1 and S2 Abdomen-normal bowel sounds, no hepatosplenomegaly Extremities-no cyanosis, clubbing, or edema Neuro-cranial nerves II through XII intact, motor and sensory function within normal limits, strength symmetrical, no focal deficits Psych-normal affect, normal mood Results & Data Results & Data Vital Signs (Past 12 Hours) Vital Signs Temp Pulse Pulse Resp BP Pulse Ox O2 Del Method 11/10/25 11:02 36.7 C 69 22 126/73 96 Room Air 11/10/25 08:00 77 11/10/25 07:43 36.8 C 68 22 149/81 H 94 Room Air Laboratory Results 11/10/25 05:48 11/10/25 05:48 PG Care Time/CCT Total # of Minutes Spent Total Time Spent with Patient: Total time spent is greater than 50% in coordination of care (as documented) at patient's floor/unit and/or counseling patient: Coding Level of Care Code 34617 SUB INP/OBS CARE 2/35MIN Diagnoses Adult failure to thrive R62.7 Acute kidney injury superimposed on CKD N17.9; N18.9 Paroxysmal SVT (supraventricular tachycardia) I47.10 Parkinsonism G20 HTN (hypertension) I10
--- NOTE | 2025-11-11 11:06 | Hospitalist Progress Note ---
Date of Service November 11, 2025 Assessment & Plan (1) Adult failure to thrive: Plan: Supportive care. Continue OT and PT while hospitalized. Long-term placement is anticipated at discharge (2) Acute kidney injury superimposed on CKD: Plan: Lasix and potassium were discontinued on admission. IV fluids were administered on admission but now have been discontinued. Serial labs. Monitor urine output (3) Paroxysmal SVT (supraventricular tachycardia): Plan: Currently stable. Telemetry. Continue carvedilol (4) Parkinsonism: Plan: Currently stable. Continue Sinemet. (5) HTN (hypertension): Plan: Amlodipine added to carvedilol on November 09. Blood pressure is acceptable now. Will follow Plan Anticipate eventual long-term care placement when arrangements are finalized Admission and Anticipated Discharge Date Admission Date: November 08, 2025 Subjective Alert. No distress. He denies any acute problems. Blood pressure is acceptable on amlodipine. Lasix and potassium have been discontinued on admission. Placement proceedings underway Review of Systems 2 Review of Systems: Constitutionalno fever or chills ENTno blurred vision, no double vision, no epistaxis, no sore throat Respiratoryno cough, no wheezing, no shortness of breath Cardiacno palpitations, no chest pain, no syncope Madelin nausea, vomiting, diarrhea, melena, hematochezia GUno urinary retention, no urinary incontinence, no dysuria, no hematuria Musculoskeletalno joint pain, no muscle tenderness Skinno bruising, no rashes, no pruritus Neurono isolated weakness, no paresthesia, no weakness Psychno depression, no anxiety Physical Exam 2 Physical Exam: General-alert and oriented x3, no fever, no chills HEENT-head atraumatic and normocephalic, pupils equal and reactive to light, extraocular muscles intact Neck-no lymphadenopathy or thyromegaly, trachea midline Chest-clear to auscultation. No rales, wheezing or rhonchi Cardiac-regular rate and rhythm, normal S1 and S2 Abdomen-normal bowel sounds, no hepatosplenomegaly Extremities-no cyanosis, clubbing, or edema Neuro-cranial nerves II through XII intact, motor and sensory function within normal limits, strength symmetrical, no focal deficits Psych-flat affect Results & Data Results & Data Vital Signs (Past 12 Hours) Vital Signs Temp Pulse Resp BP Pulse Ox O2 Del Method 11/11/25 09:39 Room Air 11/11/25 08:24 36.4 C L 74 16 130/73 98 Room Air 11/10/25 23:07 37 C 85 16 145/84 H 97 Room Air Laboratory Results 11/10/25 05:48 11/10/25 05:48 PG Care Time/CCT Total # of Minutes Spent Total Time Spent with Patient: Total time spent is greater than 50% in coordination of care (as documented) at patient's floor/unit and/or counseling patient: Coding Level of Care Code 45056 SUB INP/OBS CARE 2/35MIN Diagnoses Adult failure to thrive R62.7 Acute kidney injury superimposed on CKD N17.9; N18.9 Paroxysmal SVT (supraventricular tachycardia) I47.10 Parkinsonism G20 HTN (hypertension) I10
[2025-11-11] MEDS: ACETAMINOPHEN 500 MG TAB PO PRN (20:39)
--- NOTE | 2025-11-12 12:16 | Hospitalist Progress Note ---
Date of Service November 12, 2025 Assessment & Plan (1) Adult failure to thrive: Plan: Supportive care. Continue OT and PT while hospitalized. Long-term placement is anticipated at discharge (2) Acute kidney injury superimposed on CKD: Plan: Lasix and potassium were discontinued on admission. IV fluids were administered on admission but now have been discontinued. Serial labs. Monitor urine output (3) Paroxysmal SVT (supraventricular tachycardia): Plan: Currently stable. Telemetry. Continue carvedilol (4) Parkinsonism: Plan: Currently stable. Continue Sinemet. (5) HTN (hypertension): Plan: Amlodipine added to carvedilol on November 09. Blood pressure is acceptable now. Will follow Plan Anticipate eventual long-term care placement when arrangements are finalized. Possibly at [facility] care Admission and Anticipated Discharge Date Admission Date: November 08, 2025 Subjective No new problems. Blood pressure acceptable with addition of amlodipine this admission. He remains off Lasix and potassium. He is on room air. Center care placement is pending Review of Systems 2 Review of Systems: Constitutionalno fever or chills ENTno blurred vision, no double vision, no epistaxis, no sore throat Respiratoryno cough, no wheezing, no shortness of breath Cardiacno palpitations, no chest pain, no syncope Madelin nausea, vomiting, diarrhea, melena, hematochezia GUno urinary retention, no urinary incontinence, no dysuria, no hematuria Musculoskeletalno joint pain, no muscle tenderness Skinno bruising, no rashes, no pruritus Neurono isolated weakness, no paresthesia, no weakness Psychno depression, no anxiety Physical Exam 2 Physical Exam: General-alert and oriented x3, no fever, no chills HEENT-head atraumatic and normocephalic, pupils equal and reactive to light, extraocular muscles intact Neck-no lymphadenopathy or thyromegaly, trachea midline Chest-clear to auscultation. No rales, wheezing or rhonchi Cardiac-regular rate and rhythm, normal S1 and S2 Abdomen-normal bowel sounds, no hepatosplenomegaly Extremities-no cyanosis, clubbing, or edema Neuro-cranial nerves II through XII intact, motor and sensory function within normal limits, strength symmetrical, no focal deficits Psych-flat affect Results & Data Results & Data Vital Signs (Past 12 Hours) Vital Signs Temp Pulse Resp BP Pulse Ox O2 Del Method 11/12/25 08:06 Room Air 11/12/25 07:25 37.1 C 75 16 155/83 H 98 Room Air Laboratory Results 11/10/25 05:48 11/10/25 05:48 PG Care Time/CCT Total # of Minutes Spent Total Time Spent with Patient: Total time spent is greater than 50% in coordination of care (as documented) at patient's floor/unit and/or counseling patient: Coding Level of Care Code 95363 SUB INP/OBS CARE 2/35MIN Diagnoses Adult failure to thrive R62.7 Acute kidney injury superimposed on CKD N17.9; N18.9 Paroxysmal SVT (supraventricular tachycardia) I47.10 Parkinsonism G20 HTN (hypertension) I10
--- NOTE | 2025-11-13 07:32 | Electrocardiogram Report ---
Test Reason : Blood Pressure : */* mmHG Vent. Rate : 89 BPM Atrial Rate : 89 BPM P-R Int : 178 ms QRS Dur : 94 ms QT Int : 354 ms P-R-T Axes : 31 33 178 degrees QTcB Int : 430 ms Sinus rhythm with Premature atrial complexes Left ventricular hypertrophy with repolarization abnormality ( Sokolow-Hamlin , Romhilt-Pérez ) Abnormal ECG When compared with ECG of 15-Oct-2025 05:04, No significant change was found Confirmed by Fei Hamilton ([id number]) on 11/13/2025 7:31:54 AM Referred By: REFERRED SELF Confirmed By: Fei Hamilton
--- NOTE | 2025-11-13 11:13 | Hospitalist Progress Note ---
Date of Service November 13, 2025 Assessment & Plan (1) Adult failure to thrive: Plan: Supportive care. Continue OT and PT while hospitalized. Long-term placement is anticipated at discharge (2) Acute kidney injury superimposed on CKD: Plan: Lasix and potassium were discontinued on admission. IV fluids were administered on admission but now have been discontinued. Serial labs. Monitor urine output (3) Paroxysmal SVT (supraventricular tachycardia): Plan: Currently stable. Telemetry. Continue carvedilol (4) Parkinsonism: Plan: Currently stable. Continue Sinemet. (5) HTN (hypertension): Plan: Amlodipine added to carvedilol on November 09. Blood pressure is acceptable now. Will follow Plan Anticipate eventual long-term care placement when arrangements are finalized. [facility] Admission and Anticipated Discharge Date Admission Date: November 08, 2025 Subjective Alert and oriented. Stable vital signs. No new problems. Review of Systems 2 Review of Systems: Constitutionalno fever or chills ENTno blurred vision, no double vision, no epistaxis, no sore throat Respiratoryno cough, no wheezing, no shortness of breath Cardiacno palpitations, no chest pain, no syncope Madelin nausea, vomiting, diarrhea, melena, hematochezia GUno urinary retention, no urinary incontinence, no dysuria, no hematuria Musculoskeletalno joint pain, no muscle tenderness Skinno bruising, no rashes, no pruritus Neurono isolated weakness, no paresthesia, no weakness Psychno depression, no anxiety Physical Exam 2 Physical Exam: General-alert and oriented x3, no fever, no chills HEENT-head atraumatic and normocephalic, pupils equal and reactive to light, extraocular muscles intact Neck-no lymphadenopathy or thyromegaly, trachea midline Chest-clear to auscultation. No rales, wheezing or rhonchi Cardiac-regular rate and rhythm, normal S1 and S2 Abdomen-normal bowel sounds, no hepatosplenomegaly Extremities-no cyanosis, clubbing, or edema Neuro-cranial nerves II through XII intact, motor and sensory function within normal limits, strength symmetrical, no focal deficits Psych-flat affect Results & Data Results & Data Vital Signs (Past 12 Hours) Vital Signs Temp Pulse Resp BP Pulse Ox O2 Del Method 11/13/25 09:20 Room Air 11/13/25 07:30 36.7 C 81 16 154/79 H 97 Room Air Laboratory Results 11/10/25 05:48 11/10/25 05:48 PG Care Time/CCT Total # of Minutes Spent Total Time Spent with Patient: Total time spent is greater than 50% in coordination of care (as documented) at patient's floor/unit and/or counseling patient: Coding Level of Care Code 46320 SUB INP/OBS CARE 2/35MIN Diagnoses Adult failure to thrive R62.7 Acute kidney injury superimposed on CKD N17.9; N18.9 Paroxysmal SVT (supraventricular tachycardia) I47.10 Parkinsonism G20 HTN (hypertension) I10
--- NOTE | 2025-11-14 15:42 | Hospitalist Progress Note ---
Date of Service November 14, 2025 Assessment & Plan (1) Adult failure to thrive: Plan: Supportive care. Continue OT and PT while hospitalized. Long-term placement is anticipated at discharge (2) Acute kidney injury superimposed on CKD: Plan: Lasix and potassium were discontinued on admission. IV fluids were administered on admission but now have been discontinued. Serial labs. Monitor urine output (3) Paroxysmal SVT (supraventricular tachycardia): Plan: Currently stable. Telemetry. Continue carvedilol (4) Parkinsonism: Plan: Currently stable. Continue Sinemet. (5) HTN (hypertension): Plan: Amlodipine added to carvedilol on November 09. Blood pressure is acceptable now. Will follow Plan Anticipate eventual long-term care placement when arrangements are finalized. [facility] Admission and Anticipated Discharge Date Admission Date: November 08, 2025 Subjective Alert and oriented. Vital signs are stable. No new problems. Placement is pending. Review of Systems 2 Review of Systems: Constitutionalno fever or chills ENTno blurred vision, no double vision, no epistaxis, no sore throat Respiratoryno cough, no wheezing, no shortness of breath Cardiacno palpitations, no chest pain, no syncope Madelin nausea, vomiting, diarrhea, melena, hematochezia GUno urinary retention, no urinary incontinence, no dysuria, no hematuria Musculoskeletalno joint pain, no muscle tenderness Skinno bruising, no rashes, no pruritus Neurono isolated weakness, no paresthesia, no weakness Psychno depression, no anxiety Physical Exam 2 Physical Exam: General-alert and oriented x3, no fever, no chills HEENT-head atraumatic and normocephalic, pupils equal and reactive to light, extraocular muscles intact Neck-no lymphadenopathy or thyromegaly, trachea midline Chest-clear to auscultation. No rales, wheezing or rhonchi Cardiac-regular rate and rhythm, normal S1 and S2 Abdomen-normal bowel sounds, no hepatosplenomegaly Extremities-no cyanosis, clubbing, or edema Neuro-cranial nerves II through XII intact, motor and sensory function within normal limits, strength symmetrical, no focal deficits Psych-flat affect Results & Data Results & Data Vital Signs (Past 12 Hours) Vital Signs Temp Pulse Resp BP Pulse Ox O2 Del Method 11/14/25 14:58 36.8 C 71 16 131/81 96 Room Air 11/14/25 07:55 Room Air 11/14/25 07:15 37.0 C 71 16 138/80 95 Room Air Laboratory Results 11/10/25 05:48 11/10/25 05:48 PG Care Time/CCT Total # of Minutes Spent Total Time Spent with Patient: Total time spent is greater than 50% in coordination of care (as documented) at patient's floor/unit and/or counseling patient: Coding Level of Care Code 81434 SUB INP/OBS CARE 2/35MIN Diagnoses Adult failure to thrive R62.7 Acute kidney injury superimposed on CKD N17.9; N18.9 Paroxysmal SVT (supraventricular tachycardia) I47.10 Parkinsonism G20 HTN (hypertension) I10
--- NOTE | 2025-11-15 08:41 | Hospitalist Progress Note ---
Date of Service November 15, 2025 Assessment & Plan (1) Adult failure to thrive: (2) Acute kidney injury superimposed on CKD: (3) Paroxysmal SVT (supraventricular tachycardia): (4) Parkinsonism: (5) HTN (hypertension): Plan #Failure to thrive Supportive care. Continue OT and PT while hospitalized. Long-term placement is anticipated at discharge. CM met with patient and patient's Ana at bedside on 11/15 Still awaiting decision from [facility], which will know in the next 1 or 2 days; referral sent to [facility] as a backup available to transport at time of discharge #RAUL superimposed on CKD (mild) Lasix and potassium were discontinued on admission. IV fluids were administered on admission but now have been discontinued. Serial labs. Monitor urine output And BMP ordered for the morning of 11/16 #Paroxysmal SVT Currently stable. Telemetry. Continue carvedilol #Parkinsonism Currently stable. Continue Sinemet #HTN Amlodipine added to carvedilol on November 09. Blood pressure is acceptable now. Will follow Disposition: Anticipate eventual long-term care placement when arrangements are finalized. Possibly at [facility] Admission and Anticipated Discharge Date Admission Date: November 08, 2025 Supervising Physician Co-Signing Physician Notes I did not see or examine the patient. I verified all wallis points and agree with Shekhar Diaz PA-C with the following exceptions and/or additions: None Subjective Mr. Fenton reports no new complaints at this time. He reports he slept well last night, and has been eating and drinking well today. He is sitting upright in bed and sipping his coffee at this time. He denies any pain in his hip, and reports that he has been feeling okay when standing on his feet. He has been ambulating with a walker in the room with assistance. ROS: Patient denies fever, chills, chest pain, SOB, leg pain, N/V/D, or changes in urinary/bowel habits. Review of Systems Review of Systems: See HPI above Physical Exam Physical Exam: General: no acute distress; pleasant affect; sitting upright in bed drinking coffee; non-toxic appearing; cooperative; SpO2 97% on RA HEENT: normocephalic, atraumatic; PERRLA; vision and hearing intact Neck: supple; trachea midline Skin: warm, dry without signs of tenting; no cyanosis; no rashes, bruising, lesions, or erythema noted CV: chest wall NTP; RRR; S1/S2 normal; no murmurs/rubs/gallops; pulses intact and symmetric at radial, DP, and PT Lungs: no acute respiratory distress; symmetrical chest wall expansion; clear breath sounds across all lung cobian w/o adventitious sounds; no wheezing ABD: Soft, NTP; BS present; no rebound/guarding; no distention MSK: no tics or fasciculations; no edema noted in the LEs b/l, nonerythematous; 3/5 strength in the left lower extremity compared to 4/5 strength in the right lower extremity when lifting legs from the bed while lying supine Neuro: A&Ox3; normal mood and affect; fluent speech; sensation intact and symmetric in the LEs b/l Results & Data Results & Data Vital Signs (Past 12 Hours) Vital Signs Temp Pulse Resp BP Pulse Ox O2 Del Method 11/15/25 08:22 36.8 C 72 16 144/85 H 95 Room Air 11/14/25 23:44 36.7 C 70 18 149/84 H 96 Room Air 11/14/25 20:55 Room Air PG Care Time/CCT Total # of Minutes Spent Total Time Spent with Patient: Total time spent is greater than 50% in coordination of care (as documented) at patient's floor/unit and/or counseling patient: Coding [place] [address] SUB INP/OBS CARE 12/26MIN Patient Type Established Medical Decision Making Low Complexity Diagnoses Adult failure to thrive R62.7 Acute kidney injury superimposed on CKD N17.9; N18.9 Paroxysmal SVT (supraventricular tachycardia) I47.10 Parkinsonism G20 HTN (hypertension) I10
--- NOTE | 2025-11-16 10:54 | Hospitalist Progress Note ---
Date of Service November 16, 2025 Assessment & Plan (1) Adult failure to thrive: (2) Acute kidney injury superimposed on CKD: (3) Paroxysmal SVT (supraventricular tachycardia): (4) Parkinsonism: (5) HTN (hypertension): Plan This patient is an 80-year-old male with PMH of Parkinson's and possible Lewy body dementia who presented on 11/08 due to failure to thrive. reportedly not able to take care of him at home. Patient is a poor historian at baseline, but can communicate needs at bedside. #Failure to thrive Supportive care. Continue OT and PT while hospitalized. Long-term placement is anticipated at discharge. CM met with patient and patient's Ana at bedside on 11/15 Still awaiting decision from [facility], which will know in the next 1 or 2 days; referral sent to [facility] as a backup available to transport at time of discharge #RAUL superimposed on CKD (mild) Lasix and potassium were discontinued on admission. IV fluids were administered on admission but now have been discontinued. Serial labs. Monitor urine output While repeat BMP was ordered the morning of 11/16, patient refused blood draw x 3 #Anemia of chronic disease Most recent Hgb 8.8 on 11/10 Clinically, no signs of active bleeding However, patient declined blood draw on the morning of 11/16 to assess for stability Continue iron supplement Restart B12, folic acid, D3 #Paroxysmal SVT Currently stable. Telemetry. Continue carvedilol #Parkinsonism Currently stable. Continue Sinemet #HTN Amlodipine added to carvedilol on November 09. Blood pressure is acceptable now. Will follow Disposition: Anticipate eventual long-term care placement when arrangements are finalized. Possibly at [facility], or [facility] Admission and Anticipated Discharge Date Admission Date: November 08, 2025 Supervising Physician Co-Signing Physician Notes I did not see or examine the patient. I verified all wallis points and agree with Shekhar Diaz PA-C with the following exceptions and/or additions: None Subjective Mr. Fenton has no new complaints this morning. He reports he slept well. Had a good breakfast. He is currently sitting upright in bed drinking coffee. He has not been out of bed yet today, but reports he ambulated with his walker last night to the bathroom without difficulty. No pain at this time. A&O x 3. ROS: Patient denies fever, chills, chest pain, SOB, leg pain, N/V/D, numbness or tingling going down the legs, or changes in urinary/bowel habits. Review of Systems Review of Systems: See HPI above Physical Exam Physical Exam: General: no acute distress; sitting upright in bed; non-toxic appearing; frail- appearing; cooperative; SpO2 93% on RA HEENT: normocephalic, atraumatic; PERRLA; vision and hearing intact Neck: supple; trachea midline Skin: warm, dry without signs of tenting; no cyanosis; no rashes, bruising, lesions, or erythema noted CV: chest wall NTP; RRR; S1/S2 normal; no murmurs/rubs/gallops; pulses intact and symmetric at radial, DP, and PT Lungs: no acute respiratory distress; symmetrical chest wall expansion; clear breath sounds across all lung cobian w/o adventitious sounds; no wheezing ABD: Soft, NTP; BS present; no rebound/guarding; no distention MSK: no tics or fasciculations; no edema noted in the LEs b/l, nonerythematous; 3/5 strength in the left lower extremity compared to 4/5 strength in the right lower extremity when lifting legs from the bed while lying supine Neuro: A&Ox3; normal mood and affect; fluent speech; sensation intact and symmetric in the LEs b/l Results & Data Results & Data Vital Signs (Past 12 Hours) Vital Signs Temp Pulse Resp BP Pulse Ox O2 Del Method 11/16/25 08:06 36.9 C 72 16 159/87 H 93 Room Air 11/16/25 01:48 137/70 11/15/25 22:58 36.4 C L 73 16 160/87 H 96 Room Air PG Care Time/CCT Total # of Minutes Spent Total Time Spent with Patient: Total time spent is greater than 50% in coordination of care (as documented) at patient's floor/unit and/or counseling patient: Coding [place] [address] SUB INP/OBS CARE 2/35MIN Patient Type Established Medical Decision Making Moderate Complexity Diagnoses Adult failure to thrive R62.7 Acute kidney injury superimposed on CKD N17.9; N18.9 Paroxysmal SVT (supraventricular tachycardia) I47.10 Parkinsonism G20 HTN (hypertension) I10
[2025-11-16] MEDS: FOLIC ACID 400 MCG TAB PO ONE (11:38)
[2025-11-16] MEDS: CYANOCOBALAMIN (B-12) 500 MCG TABLET PO ONE (11:38)
[2025-11-17] MEDS: CHOLECALCIFEROL 25 MCG (1000 UNITS) TAB PO SCH (08:06)
[2025-11-17] MEDS: FOLIC ACID 400 MCG TAB PO SCH (08:06)
[2025-11-17] MEDS: CYANOCOBALAMIN (B-12) 500 MCG TABLET PO SCH (08:09)
--- NOTE | 2025-11-17 11:22 | Hospitalist Progress Note ---
Date of Service November 17, 2025 Assessment & Plan (1) Adult failure to thrive: (2) Acute kidney injury superimposed on CKD: (3) Paroxysmal SVT (supraventricular tachycardia): (4) Parkinsonism: (5) HTN (hypertension): Plan This patient is an 80-year-old male with PMH of Parkinson's and possible Lewy body dementia who presented on 11/08 due to failure to thrive. reportedly not able to take care of him at home. Patient is a poor historian at baseline, but can communicate needs at bedside. #Failure to thrive Supportive care. Continue OT and PT while hospitalized. Long-term placement is anticipated at discharge. CM following; initially, there was some discussion about returning home with [facility] Discussed with patient/ on 11/17, and they report they would still prefer rehab/SNF placement if possible Still awaiting decision from [facility], which will know in the next 1 or 2 days available to transport at time of discharge #RAUL superimposed on CKD (mild) Lasix and potassium were discontinued on admission. IV fluids were administered on admission but now have been discontinued. Serial labs. Monitor urine output Most recent Cr 1.98 on 11/17 #Anemia of chronic disease Most recent Hgb 8.2 on 11/17 Clinically, no signs of active bleeding Continue iron supplement Reinitiated vitamin B12, folic acid, and vitamin D3 #Paroxysmal SVT Currently stable. Telemetry. Continue carvedilol #Parkinsonism Currently stable. Continue Sinemet #HTN Amlodipine added to carvedilol on November 09. Blood pressure is acceptable now. Will follow Disposition: Medically stable for discharge; anticipate eventual long-term care placement when arrangements are finalized. Hopefully [facility], pending bed availability this week Admission and Anticipated Discharge Date Admission Date: November 08, 2025 Supervising Physician Co-Signing Physician Notes The patient was not seen by me. The chart was reviewed. Case discussed with ANURADHA Briceño. Agree with assessment and plan Subjective Mr. Browne is doing well this morning, but is still a poor historian at this time. He is assessed with his (Ana) at bedside and, who provides additional history. reports that they are still interested in pursuing rehab/SNF placement at this time. She reconfirms that the reason they brought him into the hospital was that he was having difficulty walking, and slid off a chair onto the floor; reports that she was unable to lift him independently, and has concerns about him returning home. She also has concerns about helping him ambulate to the bathroom. also notes that he has not been eating much. Patient declines dietitian's consult at this time. Discussed repeat blood draw with patient, as he is declined a.m. blood draws over the past 2 days. Explained the patient/ that this would be to ensure stability of his hemoglobin levels, and recheck his renal function. Following explanation, ask if patient could verbalize the reason for the blood draws, and he was unable to respond; this could suggest a lack of insight into medical decision-making capacity. Informed patient that, we would like to provide as much medical autonomy as possible to the patient, but we also want to make sure that he stays healthy as anemia could be contributing to his generalized fatigu e, weakness, and physical decline. strongly encouraged him to have blood draw this morning, and patient is now amenable. ROS: Patient denies fevers overnight, chills, night sweats, chest pain with walking, dizziness/lightheadedness when standing, feeling off balance with ambulation, headaches, SOB, cough, abdominal pain, N/V/D, burning with urination, blood in the urine or stool, change in urinary/bowel habits, or pain in the legs. Review of Systems Review of Systems: See HPI above Physical Exam Physical Exam: General: no acute distress; sitting upright in bed drinking black coffee; (Ana) at bedside; non-toxic appearing; frail-appearing; cooperative; SpO2 94% on RA HEENT: normocephalic, atraumatic; PERRLA; vision and hearing intact Neck: supple; trachea midline Skin: warm, dry without signs of tenting; no cyanosis; no rashes, bruising, lesions, or erythema noted CV: chest wall NTP; RRR; S1/S2 normal; no murmurs/rubs/gallops; pulses intact and symmetric at radial, DP, and PT Lungs: no acute respiratory distress; symmetrical chest wall expansion; clear breath sounds across all lung cobian w/o adventitious sounds; no wheezing ABD: Soft, NTP; BS present; no rebound/guarding; no distention MSK: no tics or fasciculations; no edema noted in the LEs b/l, nonerythematous; 3/5 strength in the left lower extremity compared to 4/5 strength in the right lower extremity when lifting legs from the bed while lying supine Neuro: A&Ox3; however, patient is not aware of date the week, and is not able to verbalize response to certain questions; flat mood and affect; fluent speech; no facial droop; sensation intact and symmetric in the LEs b/l VSS Results & Data Results & Data Vital Signs (Past 12 Hours) Vital Signs Temp Pulse Resp BP Pulse Ox O2 Del Method 11/17/25 08:19 36.9 C 72 17 168/90 H 94 Room Air PG Care Time/CCT Total # of Minutes Spent Total Time Spent with Patient: Total time spent is greater than 50% in coordination of care (as documented) at patient's floor/unit and/or counseling patient: Coding [place] [address] SUB INP/OBS CARE 2/35MIN Patient Type Established Medical Decision Making Moderate Complexity Diagnoses Adult failure to thrive R62.7 Acute kidney injury superimposed on CKD N17.9; N18.9 Paroxysmal SVT (supraventricular tachycardia) I47.10 Parkinsonism G20 HTN (hypertension) I10
[2025-11-17 11:38] LABS: Hematocrit (blood only) 25.8 % (42.0-52.0); Hemoglobin 8.2 g/dL (14.0-18.0); Mean Corpuscular Hemoglobin 28.6 pg (25.0-34.0); Mean Corpuscular Volume 89.9 fL (80.0-100.0); Platelet Count 272 K/uL (130-400); RDW Standard Deviation 52.1 fL (36.4-46.3); Red Blood Count 2.87 M/uL (4.70-6.10); White Blood Count 6.07 K/ul (4.8-10.8)
[2025-11-17 11:57] LABS: Anion Gap 4.0 (3-11); Blood Urea Nitrogen 32.0 mg/dl (6-23); Calcium 9.6 mg/dl (8.6-10.3); Carbon Dioxide 26.0 mmol/L (21-32); Chloride 111.0 mmol/L (98-107); Creatinine Clr Calc Pharmacy 26.8 ml/min; Glucose 111.0 mg/dl (70-99(Fasting)); Magnesium 1.9 mg/dl (1.7-2.4); Potassium 4.5 mmol/L (3.5-5.1); Sodium 141.0 mmol/L (136-145)
--- NOTE | 2025-11-18 13:15 | Hospitalist Progress Note ---
Date of Service November 18, 2025 Assessment & Plan (1) Adult failure to thrive: (2) Acute kidney injury superimposed on CKD: (3) Paroxysmal SVT (supraventricular tachycardia): (4) Parkinsonism: (5) HTN (hypertension): Plan This patient is an 80-year-old male with PMH of Parkinson's and possible Lewy body dementia who presented on 11/08 due to failure to thrive. reportedly not able to take care of him at home. Patient is a poor historian at baseline, but can communicate needs at bedside. #Failure to thrive Supportive care. Continue OT and PT while hospitalized. Long-term placement is anticipated at discharge. However, insurance denied SNF rehab ([facility]) authorization on 11/18 Rather than pursue long-term placement options or [facility], both and patient prefer for him to return home with [facility] available to transport at time of discharge #Caregiver with fatigue Patient's is primary caregiver; she reports she is unable to provide for her due to increased burden of care For instance, Was unable to lift patient off the ground when he fell at home #RAUL superimposed on CKD (mild) Lasix and potassium were discontinued on admission. IV fluids were administered on admission but now have been discontinued. Serial labs. Monitor urine output Most recent Cr 1.98 on 11/17 #Anemia of chronic disease Most recent Hgb 8.2 on 11/17 Clinically, no signs of active bleeding Continue iron supplement Reinitiated vitamin B12, folic acid, and vitamin D3 #Paroxysmal SVT Currently stable. Telemetry. Continue carvedilol #Parkinsonism Currently stable. Continue Sinemet #HTN Amlodipine added to carvedilol on November 09. Blood pressure is acceptable now. Will follow Insurance denied SNF rehab on 11/18. Called for peer to peer, which was denied. The reason for denial was that the patient's needs are "skilled nursing in nature", and that he does not require a medical need for skilled PT/OT as he is able to ambulate 250 feet. Per P2P, fall prevention and difficulty in navigating steps did not qualify risk for senior care need. Recommended patient look into long-term options. Disposition: Insurance denied SNF ([facility]) Rather than apply for [facility]F, both patient and patient's (Ana) expressed a desire for him to return home with home health. is available to transfer tomorrow at 11 AM Updated CM Planned discharge on 11/19 Patient's (Ana) updated at bedside on 11/17 and 11/18. Admission and Anticipated Discharge Date Admission Date: November 08, 2025 Subjective Mr. Fenton is in better spirits today compared to yesterday. He reports he slept well last night, and was amenable to working with PT/OT earlier this morning. He denies feeling off balance when using the walker. No pain at this time. He he increased his diet intake this morning, and reports he ate a good helping of eggs and pancakes. No other complaints at this time. ROS: Patient denies fevers overnight, chills, night sweats, chest pain with walking, dizziness/lightheadedness when standing, feeling off balance with ambulation, headaches, SOB, cough, abdominal pain, N/V/D, burning with urination, blood in the urine or stool, change in urinary/bowel habits, or pain in the legs. Review of Systems Review of Systems: See HPI above Physical Exam Physical Exam: General: no acute distress; sitting upright in bed; non-toxic appearing; frail- appearing; cooperative; SpO2 94% on RA HEENT: normocephalic, atraumatic; PERRLA; vision and hearing intact Neck: supple; trachea midline Skin: warm, dry without signs of tenting; no cyanosis; no rashes, bruising, lesions, or erythema noted CV: chest wall NTP; RRR; S1/S2 normal; no murmurs/rubs/gallops; pulses intact and symmetric at radial, DP, and PT Lungs: no acute respiratory distress; symmetrical chest wall expansion; clear breath sounds across all lung cobian w/o adventitious sounds; no wheezing ABD: Soft, NTP; BS present; no rebound/guarding; no distention MSK: no tics or fasciculations; no edema noted in the LEs b/l, nonerythematous; 4/5 strength in the lower EXTR bilateral Neuro: A&Ox3; however, patient is not aware of date the week, and is not able to verbalize response to certain questions; flat mood and affect; fluent speech; no facial droop; sensation intact and symmetric in the LEs b/l Mildly hypertensive at 164/78 on 11/18; vitals otherwise stable Results & Data Results & Data Vital Signs (Past 12 Hours) Vital Signs Temp Pulse Resp BP Pulse Ox O2 Del Method 11/18/25 09:30 Room Air 11/18/25 07:00 37.2 C 73 18 164/78 H 94 Room Air PG Care Time/CCT Total # of Minutes Spent Total Time Spent with Patient: Total time spent is greater than 50% in coordination of care (as documented) at patient's floor/unit and/or counseling patient: [place] [address] SUB INP/OBS CARE 2/35MIN Patient Type Established History Comprehensive Exam Comprehensive Medical Decision Making Moderate Complexity Diagnoses Adult failure to thrive R62.7 Acute kidney injury superimposed on CKD N17.9; N18.9 Paroxysmal SVT (supraventricular tachycardia) I47.10 Parkinsonism G20 HTN (hypertension) I10
--- NOTE | 2025-11-19 07:28 | Discharge Summary ---
Discharge Summary Date of Service November 19, 2025 Principal Dx & Hospital Course #1 = Principal Diagnosis (1) Adult failure to thrive: (2) Acute kidney injury superimposed on CKD: (3) Paroxysmal SVT (supraventricular tachycardia): (4) Parkinsonism: (5) HTN (hypertension): Plan This patient is an 80-year-old male with PMH of Parkinson's and possible Lewy body dementia who presented on 11/08 due to failure to thrive. reportedly not able to take care of him at home. For instance, he slipped out of his chair, and she was unable to lift them off the ground [place]ON[place]. Patient is a poor historian at baseline, but can communicate needs. #Failure to thrive Supportive care. Continue OT and PT while hospitalized. Long-term placement is anticipated at discharge. However, insurance denied SNF rehab ([facility]) authorization on 11/18 Rather than pursue long-term placement options or H, both and patient prefer for him to return home with [facility] available to transport at time of discharge #Caregiver with fatigue Patient's is primary caregiver; she reports she is unable to provide for her due to increased burden of care For instance, Was unable to lift patient off the ground when he fell at home #RAUL superimposed on CKD (mild) Lasix and potassium were discontinued on admission. IV fluids were administered on admission but now have been discontinued. Serial labs. Monitor urine output Most recent Cr 1.98 on 11/17 #Anemia of chronic disease Most recent Hgb 8.2 on 11/17 Clinically, no signs of active bleeding Continue iron supplement Reinitiated vitamin B12, folic acid, and vitamin D3 Vitamin B12 level WNL at 286 on 11/17/2025 #Poor p.o. intake Patient declined dietitian consult #Paroxysmal SVT Currently stable. Telemetry. Continue carvedilol #Parkinsonism Currently stable. Continue Sinemet #HTN Amlodipine added to carvedilol on November 09. Blood pressure is acceptable now. Will follow Insurance denied SNF rehab on 11/18. Called for peer to peer, which was denied. The reason for denial was that the patient's needs are "nursing home in nature", and that he does not require a medical need for skilled PT/OT as he is able to ambulate 250 feet. Per P2P, fall prevention and difficulty in navigating steps did not qualify risk for penitentiary need. Recommended patient look into long-term options. Rather than apply for [facility]/ECF, both patient and patient's (Ana) expressed a desire for him to return home with home health. is available to transfer home on 11/19 at 1100 Day of discharge 11/19: Patient is hypertensive at 163/92; vitals otherwise stable Patient reports no events overnight. He had a poor night sleep, but reports he has been eating and drinking well this morning (eggs, pancakes, OJ, and coffee). He denies any difficulty with ambulation this morning using a walker. When asked if he would like additional resources regarding personal care homes in long-term care, he declines additional information at time of discharge. ROS: Patient denies fevers overnight, chills, night sweats, chest pain with walking, dizziness/lightheadedness when standing, feeling off balance with ambulation, headaches, SOB, cough, abdominal pain, N/V/D, burning with urination, blood in the urine or stool, change in urinary/bowel habits, or pain in the legs. Disposition: Discharge with resumption of [facility] Notes For Next Care Provider Patient hospitalized for progressive Parkinson's, caregiver with fatigue, and failure to thrive at home. Insurance rejected rehab. Rather than pursue long- term placement with personal-nursing home or extended-care facility, patient and would like to try home health again, given patient is ambulatory dysfunction improved somewhat in the hospital. Given patient's kidney function, and appearing clinically dry on arrival, Lasix and potassium were discontinued. We have added on amlodipine 5 mg tablets daily to assist with hypertension while inpatient. Vitamin supplements restarted while inpatient. Vitamin B12 level WNL at 286 on 11/17/2025. 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 Most recent hospitalization was from 10/14-10/16/2025, where he was treated for aspiration pneumonia, with x-ray this evening compared to that admission much improved. He was also noted to have a long failure to thrive, and it was attempted for patient to be discharged to home health with his at home, however, EMS reports that his is not able to handle taking care of him at home. The patient himself does not communicate at this time, and therefore cannot contribute to HPI or ROS. Admission Exam Per Admitting Provider The patient is awake, not responding to questions, disheveled and gaunt appearing, normocephalic and atraumatic, otherwise lying in bed and in no acute distress. Audible aspiration with coughing HEENT--PERRL, EOMI, mucous membranes and oropharynx mildly to moderately dry. Neck--supple. No JVD. No bruits. Thyroid normal, trachea midline, no adenopathy. Heart--mildly tachycardic, otherwise normal S1 and S2. No murmurs, rubs or gallops. Lungs--coarse breath sounds bilaterally. No respiratory distress, no accessory muscle use. Abdomen--normal bowel sounds and soft. Nontender. Nondistended, no hernias or masses, no organomegaly. Extremities--No edema. Dermatologic--skin is dry and mildly xerotic Neurologic--cranial nerves II through XII grossly intact. Rheumatologic--limited exam due to inability to follow commands Psychiatric--flat affect Discharge Exam General: no acute distress; sitting upright in bed; non-toxic appearing; frail- appearing; cooperative; SpO2 93% on RA HEENT: normocephalic, atraumatic; PERRLA; vision and hearing intact Neck: supple; trachea midline Skin: warm, dry without signs of tenting; no cyanosis; no rashes, bruising, lesions, or erythema noted CV: chest wall NTP; RRR; S1/S2 normal; no murmurs/rubs/gallops; pulses intact and symmetric at radial, DP, and PT Lungs: no acute respiratory distress; symmetrical chest wall expansion; clear breath sounds across all lung cobian w/o adventitious sounds; no wheezing ABD: Soft, NTP; BS present; no rebound/guarding; no distention MSK: no tics or fasciculations; no edema noted in the LEs b/l, nonerythematous; 4/5 strength in the lower EXTR bilateral Neuro: A&Ox3; however, patient is not aware of date the week, and is not able to verbalize response to certain questions; flat mood and affect; fluent speech; no facial droop; sensation intact and symmetric in the LEs b/l Mildly hypertensive at 163/92 on 11/19; vitals otherwise stable Discharge Plan Discharge Items Patient Disposition: Home - Home Health Services Reason For Visit: PROGRESSIVE WEAKNESS, DECREASED ORAL INTAKE, ADULT Discharge Diagnosis: Progressive weakness, failure to thrive Condition on Discharge: Fair Activity: As commented below Activity Comment: Gradually increase activity per PT/OT home health recommendations Non-emergency contact: Primary Care Provider Call non-emergency contact if: you have any medication questions Follow-up/Referrals: Tina Romo DO [Primary Care Provider] - 11/29/25 11:00 am () Diet: Heart Healthy Diet Texture: Easy to Chew Liquid Consistency: [place] thick Addtl Attending Provider Instructions: You were hospitalized at [facility] from 11/08 to 11/16 due to generalized decline in the setting of Parkinson's and possible Lewy body dementia. On arrival, your reported that he would slipped out of your chair, and she was unable to lift you. She mentions that she was having difficulty caring for you at home, and sought additional resources for strength and conditioning. While our physical and occupational therapists recommended rehab placement, this was denied by your insurance. While we did offer to seek out personal care homes or more long-term care facilities, through shared decision making, we elected to try PT/OT home health again. Please note that you still remain a very high fall risk. Please see attached pamphlet for additional ways to help avoid falls at home. Changes to medications: Continue taking amlodipine 5 mg tablets every morning for high blood pressure Discontinue Lasix 20 mg daily Discontinue potassium chloride 40 mg daily The following supplements were restarted during your hospital stay: Folic acid, vitamin B12, and vitamin D3 We recommend you follow-up with your PCP in the next 5 to 10 days for a transitional care appointment. If you develop any new or worsening symptoms, such as fever, chills, chest pain, trouble breathing, fainting spells, or inability to walk, please return to the emergency department immediately. It was a pleasure taking care of you. Please reach out with any questions or concerns. Sincerely, The Hospital medicine team at [facility] Pending Studies at Discharge: No Stand-Alone Forms: My [facility] Medications and DC Order Prescriptions: New folic acid 400 mcg Tablet 400 mcg PO QAM Qty: 30 0RF cyanocobalamin (vitamin B-12) 500 mcg Tablet 500 mcg PO QAM Qty: 30 0RF cholecalciferol (vitamin D3) 25 mcg (1,000 unit) Capsule 25 mcg PO QAM Qty: 30 0RF amlodipine 5 mg Tablet 5 mg PO QAM Qty: 30 0RF Rx Instructions: Take 1 tablet every morning Continued triamcinolone acetonide 0.1 % cream 1 applic topical BID Qty: 80 0RF Rx Instructions: thin layer twice daily onto legs, followed by thick moisturizer carvedilol 3.125 mg tablet 3.125 mg PO BID Qty: 180 1RF Rx Instructions: must administer with a meal/food take with the 12.5 mg tablet so that the total dose is 15.625 carvedilol 12.5 mg tablet 12.5 mg PO BIDM Qty: 180 1RF Rx Instructions: Take with 3.125 mg tablet BID (15.625 Mg) ferrous gluconate 324 mg (37.5 mg iron) tablet 324 mg PO DAILY Qty: 30 2RF (DME) Walker 4 point See Rx Instructions .Route .MEDSUPPLY Qty: 1 0RF Rx Instructions: As directed carbidopa-levodopa 25-100 mg tablet 1 tab PO TID Qty: 90 5RF aspirin [Adult Low Dose Aspirin] 81 mg tablet,delayed release (DR/EC) 81 mg PO DAILY acetaminophen [Tylenol Extra Strength] 500 mg Tablet 1,000 mg PO Q8H PRN (Reason: pain) Qty: 60 0RF nicotine 7 mg/24 hr Patch 24 Hour 1 patch transdermal QAM Qty: 14 0RF Lac-Hydrin Five 5 % Lotion 1 applic EXT DAILY Qty: 226 0RF Rx Instructions: Apply to dry skin on legs Discontinued furosemide 20 mg tablet 20 mg PO DAILY potassium chloride [Klor-Con] 20 mEq packet 40 meq PO DAILY Qty: 30 0RF Hold Instructions: Resume on 10/05/25. Hold until advised to restart by nephrology Discharge Orders: Discharge Order (Routine); Ordered 11/19/25 Ordered By: Shekhar Diaz Admission Data Admit Date/Time: 11/08/25 05:42 Attending Provider: Nico Ramirez Admit Provider: Clint Golden Primary Care Provider: Tina Romo Other Providers: [facility]Home [facility]; [facility]; Clint Golden; Levi London at [facility] Stay Data Consultations 11/08/25 04:57 ED Decision to Admit Stat Pending Results Patient Have Any Pending Studies at Discharge: No Discharge Instructions Given to Patient (Per Discharging Provider) You were hospitalized at [facility] from 11/08 to 11/16 due to generalized decline in the setting of Parkinson's and possible Lewy body dementia. On arrival, your reported that he would slipped out of your chair, and she was unable to lift you. She mentions that she was having difficulty caring for you at home, and sought additional resources for strength and conditioning. While our physical and occupational therapists recommended rehab placement, this was denied by your insurance. While we did offer to seek out personal care homes or more long-term care facilities, through shared decision making, we elected to try PT/OT home health again. Please note that you still remain a very high fall risk. Please see attached pamphlet for additional ways to help avoid falls at home. Changes to medications: Continue taking amlodipine 5 mg tablets every morning for high blood pressure Discontinue Lasix 20 mg daily Discontinue potassium chloride 40 mg daily The following supplements were restarted during your hospital stay: Folic acid, vitamin B12, and vitamin D3 We recommend you follow-up with your PCP in the next 5 to 10 days for a transitional care appointment. If you develop any new or worsening symptoms, such as fever, chills, chest pain, trouble breathing, fainting spells, or inability to walk, please return to the emergency department immediately. It was a pleasure taking care of you. Please reach out with any questions or concerns. Sincerely, The Hospital medicine team at [facility] Total Time Total Time Spent Total Time Spent (In Minutes): 35 [place] [address] INP/OBS DISCH >30 MIN Patient Type Established History Comprehensive Exam Comprehensive Medical Decision Making Moderate Complexity Diagnoses Adult failure to thrive R62.7 Acute kidney injury superimposed on CKD N17.9; N18.9 Paroxysmal SVT (supraventricular tachycardia) I47.10 Parkinsonism G20 HTN (hypertension) I10
[2025-11-19 07:46] VITALS: BP 163/92; RESP 20; TEMP 99; O2SAT 93
[2025-11-19 10:38] VITALS: PULSE 66
== END 2025-11-19 11:03 | disposition home health service (06) | DRG 683 ==
LOC: SUATTDRO → ED 01:43 → SUATTDRO 05:42 → EDINP 05:42 → 2S 14:30 → 3N 11-10 22:51